=== PATIENT | female | born 1955 | race Hispanic/Latino ===

== ENCOUNTER 2022-10-02 12:14 | Inpatient (IN) | payer OTHER ==
[2022-10-03] MEDS ORDERED: HYDROCODONE/APAP 5/325 MG TAB PO PRN (14:30)
[2022-10-03] MEDS ORDERED: ACETAMINOPHEN 325 MG TABLET PO PRN (14:32)
--- OUTSIDE RECORDS SUMMARY | 2022-10-03 14:56 | XMS REPORT | Continuity of Care Document ---
:1955 Author Organization [facility] [place] [facility] t Address [address] [place] [address] Care Team Providers Name Role Phone Asked, No Pcp Primary Care Physician Unavailable KHADIJAH LOPEZ Attending Clinician Unavailable JESSA ABREU Attending Clinician Unavailable PROSPER LICEA Attending Clinician Unavailable YAN MONREAL Attending Clinician Unavailable SAMIA HAWKINS Attending Clinician Unavailable HILL LOCO Attending Clinician Unavailable MYRNA RENTERIA Attending Clinician Unavailable Myrna Renteria DO Attending Clinician Chyna Paulino DO Attending Clinician Yan Barron Attending Clinician Hill Loco MD Attending Clinician SABRINA MARINO Attending Clinician Unavailable Jessica JAMES, Khadijah Ahuja Attending Clinician Vinayak JAMES, Prosper Attending Clinician Shelley Metzger DO Attending Clinician Po, [facility] Lab Main Attending Clinician Unavailable Doctor Unassigned, [place] Attending Clinician Unavailable Sabrina Zhang S Attending Clinician ANALY FONSECA Attending Clinician Unavailable Neha Donovan PT Attending Clinician Unavailable May Bai LCSW Attending Clinician RUTHIE MARTINEZ Attending Clinician Unavailable MELVIN VARMA Attending Clinician Unavailable Melvin Varma DO Attending Clinician ABHILASH FONSECA Attending Clinician Unavailable Abhilash Fonseca MD Attending Clinician Lab, Ang - Db Attending Clinician Unavailable CHYNA PAULINO Attending Clinician Unavailable CHYNA PAULINO Attending Clinician Unavailable Jessa Abreu MD Attending Clinician Padmaja LUIS Attending Clinician Unavailable TboyPadmaja Main Attending Clinician Alex Wills Attending Clinician Unavailable SEAN MADRID Attending Clinician Unavailable Sean Madrid DO Attending Clinician JOHAN GATES Attending Clinician Unavailable Johan Gates MD Attending Clinician Korey DEJESUS, Akbar Attending Clinician Unavailable Mattie Avila PA-C Attending Clinician MATTIE AVILA Attending Clinician Unavailable Missy Bey PTA Attending Clinician Unavailable Ashkan Whittaker PTA Attending Clinician Unavailable Cheryl West PTA Attending Clinician Unavailable Sandie Barboza PT Attending Clinician Unavailable Berenice Dasilva Attending Clinician BERENICE SANDERSON Attending Clinician Unavailable Visit, [facility] Nurse Attending Clinician Unavailable Mariela Barrientos MDHPeri Attending Clinician MARIELA BARRIENTOSHPeri Attending Clinician Unavailable Shiraz Khoury Attending Clinician Jemal CHARLES, Erinn Attending Clinician ERINN JOAQUIN Attending Clinician Unavailable BAUTISTA ESPITIA Attending Clinician Unavailable Sunil JAMES, Bautista Gaona Attending Clinician [facility] [place], Adc Surgery Faculty Attending Clinician Unavailable Josias Lloyd MD Attending Clinician JOSIAS LLOYD Attending Clinician Unavailable AVRIL ROGER Attending Clinician Unavailable Avril Roger MD Attending Clinician MEHOP_ELIGIBILITY Attending Clinician Unavailable SHANTA BUCK Attending Clinician Unavailable SHANTA BUCK Attending Clinician Unavailable , [facility] Surg Spec Procedure Attending Clinician Unavailable Randolph Verdugo MD Attending Clinician RANDOLPH VERDUGO Attending Clinician Unavailable MAHIN SLAUGHTER Attending Clinician Unavailable MASOUD MAXWELL Attending Clinician Unavailable Jacinda Tai Attending Clinician Masoud Maxwell MD Attending Clinician ZAINAB JOHNSTON Attending Clinician Unavailable Vicente DEJESUS, Mimi Ahuja Attending Clinician Unavailable ALIREZA DICK Attending Clinician Beverly Parminder Arteaga MD Attending Clinician Fozia Jameson MD Attending Clinician Ok Augustin MD Attending Clinician Alireza Dick MD Attending Clinician Ebrahim ARACELI, Demetrius Attending Clinician Vaccine, Ang Db Cbc Fam Attending Clinician Unavailable Judy Crow MD Attending Clinician JUDY CROW Attending Clinician Unavailable Orth[facility] Clinic, Orthopedic Attending Clinician UnavailAnaly Serra Attending Clinician [phone] Mono DEJESUS, Fazal Attending Clinician Unavailable Zainab Bal Attending Clinician Only, [facility] Test Attending Clinician Unavailable Lab, Clc - Attending Clinician Unavailable Mario Patton PA-C Attending Clinician MARIO PATTON Attending Clinician Unavailable Donell Mosher MD Attending Clinician Fahad Zaman MD Attending Clinician Provider, [facility] Urgent Care Attending Clinician Unavailable Ruma Pineda Attending Clinician Lab, Adc Fam Pob I Attending Clinician Unavailable RADIOLOGY Attending Clinician Unavailable Radiology Attending Clinician Unavailable BOBBY JC Attending Clinician Unavailable Santiago Mares DO Attending Clinician Amanda Hunt MD Attending Clinician AMANDA HUNT Attending Clinician Unavailable Nurse, [facility] Women's Health Attending Clinician Unavailable Faculty, Vascular Surg Attending Clinician Unavailable JONATHAN STEVENS Attending Clinician Unavailable Jonathan Stevens MD Attending Clinician SANA TRAN Attending Clinician Unavailable Sana Jenkins S Attending Clinician DEMETRIUS RICHARD Attending Clinician Unavailable Kathrin Jacobs MD Attending Clinician KATHRIN JACOBS Attending Clinician Unavailable Hayde Agustin RN Attending Clinician Unavailable Viji Arevalo RN Attending Clinician Unavailable Love Young Attending Clinician DEEPA HERNANDEZ Attending Clinician Unavailable RESHMA AMADORUWATOSIN A Attending Clinician Unavailable Hossein Junior MD Attending Clinician Rolan Crain CRNA Attending Clinician Isaiah Jaquez MD Attending Clinician KHADIJAH LOPEZ Admitting Clinician Unavailable JESSA ABREU Admitting Clinician Unavailable MYRNA RENTERIA Admitting Clinician Unavailable Myrna Renteria DO Admitting Clinician RUTHIE MARTINEZ Admitting Clinician Unavailable MELVIN VARMA Admitting Clinician Unavailable Alex Wills Admitting Clinician Unavailable UNDEFINED Admitting Clinician Unavailable PROSPER LICEA Admitting Clinician Unavailable Vinayak JAMES, Prosper Admitting Clinician JOHAN GATES Admitting Clinician Unavailable MATTIE AVILA Admitting Clinician Unavailable Padmaja LUIS Admitting Clinician Unavailable MEHOP_ELIGIBILITY Admitting Clinician Unavailable BAUTISTA ESPITIA Admitting Clinician Unavailable Sunil JAMES, Bautista Ganoa Admitting Clinician ALIREZA DICK Admitting Clinician Beverly meenu Dick MD, Alireza Short Admitting Clinician RANDOLPH VERDUGO Admitting Clinician Unavailable Jessa Abreu MD Admitting Clinician Fahad Zaman MD Admitting Clinician TONY STRICKLAND Admitting Clinician Unavailable JONATHAN STEVENS Admitting Clinician Unavailable Monet JAMES, Jonathan Admitting Clinician YAN MONREAL Admitting Clinician Unavailable DEEPA HERNANDEZ Admitting Clinician Unavailable Hossein Junior MD Admitting Clinician Payers Payer Name Policy Type Policy Number Effective Date Expiration Date [facility] MEDICARE PART A [id number] 1991 \\T\\ B 00:00:00 [facility] [id number] 2021 00:00:00 MEDICAID [facility] [id number] 2021 00:00:00 XIANG AVILA [facility] [id number] 2021 2021 HMO 00:00:00 00:00:00 [employer] [id number] 2019 MEDICARE 00:00:00 ADVANTAGE Problems Condition Condition Condition Status Onset Resolution Last Treating Co mments Source Name Details Category Date Date Treatment Clinician Date Acute on Acute on Disease Active Unive rs chronic chronic 2- [place]F 00 Medical (congestiv (congestiv Br anch e heart e heart failure) failure) Presence Presence Disease Active Unive rs of cardiac of cardiac 2-23 it y of [place] 00 Medical therapy therapy Branch pacemaker 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 Added automatic ally from request for surgery [id number] Left heart Left heart Disease Active 2021-08 Overview : Univers failure failure 1 Formattin ity o f 00:00: g of this [place] 00 note Medical might be Branch different from the original. Added automatic ally from request for surgery [id number] Lipoma of Lipoma of Disease Active Uni vers right right 4-04 ity of thigh thigh 00:00: [place] Medical [facility] Chronic Chronic Disease Active Univers heart heart 2-21 ity of failure failure 00:00: [place] with with 00 Medical preserved preserved Bran ch ejection ejection fraction fraction Pacemaker Pacemaker Disease Active Uni vers 2-21 ity of 00:00: Medical Branch Preop Preop Disease Active Univers cardiovasc cardiovasc 2-21 it y of ular exam ular exam 00:00: Kaus[place] bobby 00 Medical Branch Mass of Mass of Disease Active Univers right right 2-21 ity of thigh thigh 00:00: Medical Branch 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-11 ity of block block 00:00: Medical Branch Statin Statin Disease Active Univers intoleranc intoleranc 2-06 it y of e e 00:00: [place] [facility] Elevated Elevated Disease Active Unive rs troponin troponin 6-17 ity of 00:00: Medical Branch Elevated Elevated Disease Active Unive rs troponin troponin 6-17 ity of 00:00: [place] [facility] Troponin I Troponin I Disease Active 2019-08 U nivers above above 2-02 ity of reference reference 00:00: [place] range range 00 Medical [place] Vitamin D Vitamin D Disease Active 2019-08 Uni vers deficiency deficiency 0-24 it y of 00:00: [place] 00 Medical Branch Grief Grief Disease Active 2020- Univers 5-11 ity of 00:00: [place] 00 Medical Branch Pain Pain Disease Active 2020- Overview: Ricki obbby pelvic pelvic 3-18 Formattin ity of 00:00: g of this [place] 00 note Medical might be Branch different from the original. Added automatic ally from request for surgery [id number] Hypomagnes Hypomagnes Disease Active 2020-0 U nivers emia emia 2-26 ity of 00:00: [place] [facility] Blurred Blurred Disease Active 2019 Univers vision vision 1-22 ity of 00:00: [place] 00 Medical Branch Chronic Chronic Disease Active 2019- Univers insomnia insomnia 7-14 ity of 00:00: [place] [facility] Postmenopa Postmenopa Disease Active 2019-0 U nivers usal usal 6-20 ity of atrophic atrophic 00:00: [place] vaginitis vaginitis 00 [facility] Branch Anxiety Anxiety Disease Active 2019- Univers 6-18 ity of 00:00: [place] [facility] Chronic Chronic Disease Active 2019- Univers constipati constipati 5-05 it y of on on 00:00: [place] [facility] Ambulatory Ambulatory Disease Active 2019-0 U nivers dysfunctio dysfunctio 5-05 it y of n n 00:00: [place] 00 Medical Branch Grade I Grade I Disease Active 2019- Univers internal internal 5-05 ity of hemorrhoid hemorrhoid 00:[place] Medical [place] Diverticul Diverticul Disease Active 2019- U nivers osis of osis of 5-05 ity of large large 00:00: [place] intestine intestine 00 [facility] without without Branch hemorrhage hemorrhage Abnormal Abnormal Disease Active 2019- Unive rs skin of skin of 4-17 ity of vulva vulva 00:00: [place] 00 Medical Branch Screening Screening Disease Active 2019 Overview: Univers for for 4-05 Formattin ity of colorectal colorectal 00:00: g of this [place] cancer cancer 00 note Medical might be Branch different from the original. Added automatic ally from request for surgery [id number] Obesity Obesity Disease Active 2019- Univers (BMI (BMI 4-05 ity of 30-39.9) 30-39.9) 00:00: [place] 00 Medical Branch Severe Severe Disease Active 2019 Overview: Univer s persistent persistent 4-03 Formattin ity of asthma asthma 00:00: g of this [place] without without 00 note Medical complicati complicati might be Branch on on different from the original. Added automatic ally from request for surgery [id number] Abnormal Abnormal Disease Active Overview: Un trudy CT scan of CT scan of 11-06 Formattin ity of lung lung 00:00: g of this 00 note Medical might be Branch different from the original. Added automatic ally from request for surgery [id number] Rectocele Rectocele Disease Active Uni vers 4-03 ity of 00:00: [place] 00 [facility] Branch Vaginal Vaginal Disease Active Univers vault vault 4- ity of prolapse, prolapse, 00:00[place] posthyster posthyster 00 Me dical ectomy ectomy Branch Candidal Candidal Disease Active Unive rs vulvovagin vulvovagin 4- it y of itis itis 00:00: [place] 00 [facility] Branch Edema of Edema of Disease Active Unive rs lower lower 4-19 ity of extremity extremity 00:00[place] Pain of Pain of Disease Active Univers left lower left lower 4-19 it y of extremity extremity 00:00[place] [facility] Varicose Varicose Disease Active Unive rs veins of veins of 2-23 ity of lower lower 00:00: [place] extremity extremity 00 [facility] marily Branch Cystocele, Cystocele, Disease Active 2015-08 U nivers midline midline 0-11 ity of 00:00: [place] 00 [facility] Branch Asthma Asthma Disease Active 2013-08 Univers 0-03 ity of 00:00: [place] 00 [facility] Branch Diabetes Diabetes Disease Active 2013-08 Unive rs mellitus mellitus 0-03 ity of 00:00: [place] 00 [facility] Branch Arthritis Arthritis Disease Active Uni vers ity of [facility] Hearing Hearing Disease Active Univers loss loss ity of [facility] Hyperlipid Hyperlipid Disease Active U nivers emia emia ity of [facility] Hypertensi Hypertensi Disease Active U nivers on on ity of [facility] Memory Memory Disease Active Univers loss loss ity of [facility] Poor Poor Disease Active Univers historian historian ity of [facility] GERD GERD Disease Active Univers (gastroeso (gastroeso it y of phageal phageal [place] reflux reflux Medical disease) disease) Branch Allergies, Adverse Reactions, Alerts Allergy Allergy Status Severity Reaction(s) Onset Inactive Treating Comm ents Source Name Type Date Date Clinician aspirin DA Active SV TACHYCARDIA 2021-08 [facility] 1-15 Clear [facility]: [facility] Statins- Propensi Active Other - See myalgias Univers Hmg-Coa ty to comments 2-06 ity of Reductas adverse 00:00: [place] e reaction 00 Medical Inhibito s Branch rs STATINS- Drug Active Other-Cmnt Univ ers HMG-COA Class 2-06 ity of REDUCTAS 00:00: [place] E 00 Medical INHIBITO Branch RS Aspirin Propensi Active Methodi ty to [address] adverse 00:00: [facility] reaction 00 l s to drug ASPIRIN DRUG Active High SOB Univers INGREDI 6-23 ity of 00:00: [place] 00 Medical Branch Aspirin Propensi Active Shortness of U nivers ty to Breath 6-23 ity of adverse 00:00: [place] reaction 00 Medical s Branch aspirin DA Active SV 2014- [facility] 1-13 [place] 00:[facility]: e [facility] aspirin DA Active SV TACHYCARDIA 2014-08 [facility] -13 [place] 00:00: e 00 [facility] Social History Social Habit Start Date Stop Date Quantity Comments Source History of tobacco Passive smoker Un iversity of use [place] [facility] History SDOH Social Unive rsity of [facility] Med ical Together Branch History SDOH Social Unive rsity of [facility] Medical Branch History SDOH Social Unive rsity of [facility] Medical Membership Branch History SDOH Social Unive rsity of [facility] Medical Meetings Branch History SDOH 2022-09-29 2022-09-29 5 University o f Financial 00:00:00 00:00:00 [place] [facility] History SDOH Food 2022-09-29 2022-09-29 1 Univers ity of Worry 00:00:00 00:00:00 [place] [facility] History SDOH Food 2022-09-29 2022-09-29 1 Univers ity of Scarcity 00:00:00 00:00:00 [place] [facility] History SDOH 2022-09-29 2022-09-29 2 University o f Transport Med 00:00:00 00:00:00 [place] Medic al Branch History SDOH 2022-09-29 2022-09-29 2 University o f Transport Non-Med 00:00:00 00:00:00 [facility] edical Branch History SDME 2022-09-29 2022-09-29 1 University o f Alcohol Frequency 00:00:00 00:00:00 [facility] edical Branch History SDME 2022-09-29 2022-09-29 0 University o f Alcohol Std Drinks 00:00:00 00:00:00 [place] [facility] History SDOH 2022-09-29 2022-09-29 1 University o f Alcohol Binge 00:00:00 00:00:00 [place] [facility] Branch History SDME Social 2022-09-29 2022-09-29 5 Unive rsity of Connections Phone 00:00:00 00:00:00 [facility] edical Branch History SDME Social 2022-09-29 2022-09-29 6 Unive rsity of Connections Living 00:00:00 00:00:00 [place] [facility] History SDME 2022-09-29 2022-09-29 3 University o f Physical Activity 00:00:00 00:00:00 [facility] edical DPW Branch History [facility] 2022-09-29 2022-09-29 1 University o f Physical Activity 00:00:00 [facility]00 [facility] Exposure to 2022-09-17 2022-09-27 Not sure University of SARS-CoV-2 (event) 00:00:00 13:55:00 [facility] Tobacco use and 2022-02-23 2022-02-23 Smokeless Universit y of exposure 00:00:00 00:00:00 tobacco non-user [facility] dical Branch Alcohol intake 2016-10-04 2016-10-04 Current Judaism 00:00:00 00:00:00 non-drinker of Hospital alcohol (finding) Sex [birth year] Judaism 00:00:00 00:00:00 Hospital Smoking Status Start Date Stop Date Source Never smoked tobacco [facility] Medications Ordered Filled Start Stop Current Ordering Indication Dosage Frequency Signature Comments Components Source Medication Medication Date Date Medication? Clinician (SIG) Name Name Sliding Yes Subcutaneo Univ ers Scale 2-28 us, TID ity of Insulin - 14:00: MEALS, [place] Lispro 00 First dose Medical (HumaLOG) + (after Branch Fsbg last Testing modificati on) on Sun10/03/22 at 0800, Until Discontinu ed, Routine tiotropium 0 Yes Spiriva Univ ers (SPIRIVA 10-03 with ity of WITH 13:17: HandiHaler [place] HANDIHALER) 23 18 mcg and Me dical 18 mcg inhalation Branch inhalation capsules hydrOXYzine Yes as needed. Univers 50 mg 10-03 ity of tablet 13:17: [place] 23 Medical Branch pantoprazol Yes 40mg Take 40 mg Univers e sodium 10-03 by mouth. ity of (PROTONIX 13:17: [place] ORAL) 23 Medical Branch EPINEPHrine 0 2022- No epinephrin Univers 0.3 mg/0.3 10-03 e 0.3 ity of mL 11:25: 00:00 mg/0.3 mL [place] injection 40 :00 injection, [facility] marily auto-injec Branch tor POTASSIUM-9 2022- No 1{tbl} Take 1 U nivers 9 ORAL 10-03 tablet by ity of 11:25: 00:00 mouth [place] 40 :00 daily. Medical Branch tiotropium Yes Spiriva Univ ers (SPIRIVA 10-03 with ity of WITH 11:25: HandiHaler [place] HANDIHALER) 38 18 mcg and Me dical 18 mcg inhalation Branch inhalation capsules hydrOXYzine 0 Yes as needed. Univers 50 mg -28 ity of tablet 11:25: [place] 38 Medical Branch pantoprazol 0 Yes 40mg Take 40 mg Univers e sodium - by mouth. ity of (PROTONIX 11:25: [place] ORAL) 38 Medical Branch ipratropium 0 Yes .5mg Inhale 2.5 Univers 0.02 % - mL 4 ity of nebulizer 00:00: (four) [place] solution 00 times Medical daily. Branch HYDROcodone Yes 1{tbl} Take 1 Un trudy -acetaminop -28 tablet by ity of hen 5-325 00:00: mouth [place] mg tablet 00 every 6 Medical (six) Branch hours as needed for Pain (scale 4-6). glipiZIDE 5 2022-0 Yes 5mg Take 1 Univ ers mg tablet 2-28 tablet by ity o f 00:00: mouth 2 00 (two) Medical times Branch daily before breakfast and dinner. furosemide 2022-0 Yes 40mg Take 1 Unive rs 40 mg 2-28 tablet by ity of tablet 00:00: mouth 00 every Medical morning Branch and evening. predniSONE 2022-0 Yes 50mg Take 1 Unive rs 50 mg 2-28 tablet by ity of tablet 00:00: mouth [place] 00 every Medical evening. Branch magnesium 2022-0 Yes 400mg Take 400 Uni vers oxide 420 2-28 mg by ity of mg Tab 00:00: mouth in [place] 00 the Medical morning Branch and 400 mg in the evening. KCL 20 mEq 2022-0 Yes 40meq Take 2 Univ ers tablet 2-28 tablets by ity of 00:00: mouth in [place] 00 the Medical morning. Branch atorvastati 0 Yes 20mg 20 mg, Univ ers n (LIPITOR) 2-25 Oral, QHS, it y of tablet 20 03:00: [place] dose [place] mg 00 on Sun Medical 09/29/22 at Branch 2100, Until Discontinu ed, Routine pantoprazol 2022-0 Yes 40mg Take 40 mg Univers e sodium 2-24 by mouth. ity of (PROTONIX 20:19: [place] ORAL) 06 Medical Branch Sliding 2022-0 2023- No Subcutaneo Uni vers Scale 2-24 02-28 us, TID ity of Insulin - 14:00: 13:50 MEALS, [place] Lispro 00 :58 First dose Medical (HumaLOG) + on Sun Branch Fsbg 09/29/22 at Testing 0800, Until Discontinu ed, Routine glipiZIDE 2022-0 Yes 5mg 5 mg, Univers (GLUCOTROL) 2-24 Oral, ity of tablet 5 mg 13:30: BIDAC, [place] 00 First dose Medical (after Branch last modificati on) on 09/29/22 at 0730, Until Discontinu ed, Routine furosemide 2022-0 Yes 40mg 40 mg, Unive rs (LASIX) 2-24 Slow IV ity of injection 12:00: [place], Q8H, [place] 40 mg 00 First dose Medical (after Branch last modificati on) on Sun09/29/22 at 0600, Until Discontinu ed, Routine iopamidol 2023-0 2022- No [id number] 100mL 100 mL, Univers (ISOVUE 09-29 Intravenou ity o f 370-500 mL) 08:15: 08:15 s, ONCE, 1 [place] injection 00 :00 dose, On Medica l 100 mL [facility] 09/29/22 at 0215, Routine magnesium 2022-0 2022- No 2g 2 g, IV Univ ers sulfate in 09-29 Piggyback, it y of water 2 05:45: 06:48 Administer Sal as gram/50 mL 00 :00 over 60 Medica l (4 %) Minutes, [place] infusion 2 ONCE, 1 g dose, On Alyce 09/28/22 at 2345, Routine predniSONE 2023-0 Yes 50mg 50 mg, Unive rs (DELTASONE) 2-24 Oral, QPM, it y of tablet 50 05:00: [place] dose [place] mg 00 on [facility] 09/28/22 at Branch 2300, Until Discontinu ed, Routine budesonide 3-0 Yes .5mg 0.5 mg, Univ ers (PULMICORT 09-29 Inhalation ity of RESPULE) 05:00: , BID, [place] nebulizer 00 First dose Medi marily solution on [facility] 0.5 mg 09/28/22 at 2300, Until Discontinu ed, Routine gabapentin 2023-0 Yes 300mg 300 mg, Uni vers (NEURONTIN) 24 Oral, TID, it y of capsule 300 05:00: First dose [place] mg 00 on [facility] 09/28/22 at Branch 2300, Until Discontinu ed, Routine magnesium 2023-0 Yes 400mg 400 mg, Univ ers oxide 2-24 Oral, BID, ity of (MAG-OX 05:00: [place] 400) tablet 00 on [facility] Medica l 400 mg 09/28/22 at Branch 2300, Until Discontinu ed, Routine KCL 2023-0 Yes 40meq 40 mEq, Univers (KLOR-CON - Oral, ity of M20) tablet 02:00: DAILY, [place] 40 mEq 00 First dose Medical on [facility] 09/28/22 at 1999, Until Discontinu ed, Routine albuterol Yes 2.5mg 2.5 mg, Univ ers (PROVENTIL) 09-29 Inhalation it y of 2.5 mg /3 02:00: , QID, [place] mL (0.083 00 First dose Medi marily %) on [facility] Branch nebulizer 09/28/22 at solution 2000, 2.5 mg Until Discontinu ed, Routine ipratropium Yes .5mg 0.5 mg, Uni vers (ATROVENT) 09-29 Inhalation ity of 0.02 % 02:00: , QID, [place] nebulizer 00 First dose Medi marily solution on [facility] Branch 0.5 mg 09/28/22 at 1999, Until Discontinu ed, Routine furosemide 2022- No 40mg 40 mg, [facility] ers (LASIX) 09-29 Slow IV ity of injection 02:00: 04:57 Push, [place] 40 mg 00 :12 Q12H, Medical First dose Branch on [facility] 09/28/22 at 1999, Until Discontinu ed, Routine HYDROcodone Yes 1{tbl} 1 tablet, Univers -acetaminop 09-28 Oral, ity of hen (NORCO 23:54: Q6HPRN, [place] 5) 5-325 mg 06 Starting Medi marily tablet 1 on [facility] tablet 09/28/22 at 1754, Until Discontinu ed, Routine, Pain (scale 4-6) enoxaparin Yes 40mg 40 mg, Unive rs (LOVENOX) 09-28 Subcutaneo ity of injection 23:00: [place], DAILY, [place] 40 mg 00 First dose Medical on [facility] Branch 09/28/22 at 1700, Until Discontinu ed, Routine Sliding 0 2022- No Subcutaneo Uni vers Scale 09-2824 us, TID ity of Insulin - 23:00: 04:54 MEALS+HS, [place] Lispro 00 :12 First dose Medical (HumaLOG) + on [facility] Branch Fsbg 09/28/22 at Testing 1700, Until Discontinu ed, Routine glucagon Yes 1mg 1 mg, Univers (GLUCAGEN 09-28 Intramuscu ity of DIAGNOSTIC 20:31: [place], PRN, [place] KIT) 25 Starting Medical injection 1 on [facility] Branch mg 09/28/22 at 1431, Until Discontinu ed, MIKE, Blood Glucose < or = 70 mg/dL and patient is NPO, unable to swallow or has mental changes. dextrose 50 0 Yes 25mL 25 mL, Univ ers % in water 2-23 Slow IV ity of (D50W) 20:31: Push, PRN, [place] injection 25 Starting Medica l 25 mL on [facility] Branch 09/28/22 at 1431, Until Discontinu ed, MIKE, Blood Glucose < or = 70 mg/dL and patient is NPO, unable to swallow or has mental status changes. acetaminoph Yes 650mg 650 mg, Un trudy en 2-23 Oral, ity of (TYLENOL) 20:30: Q6HPRN, [place] tablet 650 02 Starting Medic al mg on [facility] Branch 09/28/22 at 1430, Until Discontinu ed, Routine, Pain (scale 1-3) tiotropium Yes [facility] (SPIRIVA 23 with ity of WITH 14:23: [facility] [place] HANDIHALER) 02 18 mcg and Me dical 18 mcg inhalation Branch inhalation capsules hydrOXYzine Yes as needed. Univers 50 mg 2-23 ity of tablet 14:23: [place] 02 Medical Branch EPINEPHrine Yes epinephrin Univers 0.3 mg/0.3 -23 e 0.3 ity of mL 14:23: mg/0.3 mL [place] injection 02 injection, Medi marily auto-injec Branch tor POTASSIUM-9 Yes 1{tbl} Take 1 Un trudy 9 ORAL -23 tablet by ity of 14:23: mouth [place] 02 daily. Medical Branch tiotropium Yes [facility] (SPIRIVA -23 with ity of WITH 14:23: [facility] [place] HANDIHALER) 02 18 mcg and Me dical 18 mcg inhalation Branch inhalation capsules hydrOXYzine Yes as needed. Univers 50 mg 2-23 ity of tablet 14:23: [place] 02 Medical Branch EPINEPHrine Yes epinephrin Univers 0.3 mg/0.3 2-23 e 0.3 ity of mL 14:23: mg/0.3 mL [place] injection 02 injection, Medi marily auto-injec Branch tor POTASSIUM-9 Yes 1{tbl} Take 1 Un trudy 9 ORAL 2-23 tablet by ity of 14:23: mouth [place] 02 daily. Medical Branch tiotropium Yes [facility] (SPIRIVA 2-23 with ity of WITH 10:20: [facility] [place] HANDIHALER) 38 18 mcg and Me dical 18 mcg inhalation Branch inhalation capsules hydrOXYzine Yes as needed. Univers 50 mg 2-23 ity of tablet 10:20: [place] 38 Medical Branch POTASSIUM-9 Yes 1{tbl} Take 1 Un trudy 9 ORAL 2-23 tablet by ity of 10:20: mouth [place] 38 daily. Medical Branch tiotropium Yes [facility] (SPIRIVA 2-23 with ity of WITH 10:20: [facility] [place] HANDIHALER) 38 18 mcg and Me dical 18 mcg inhalation Branch inhalation capsules hydrOXYzine Yes as needed. Univers 50 mg 2-23 ity of tablet 10:20: [place] 38 Medical Branch POTASSIUM-9 Yes 1{tbl} Take 1 Un trudy 9 ORAL 2-23 tablet by ity of 10:20: mouth [place] 38 daily. Medical Branch tiotropium Yes [facility] (SPIRIVA 2-23 with ity of WITH 10:20: [facility] [place] HANDIHALER) 38 18 mcg and Me dical 18 mcg inhalation Branch inhalation capsules hydrOXYzine Yes as needed. Univers 50 mg 2-23 ity of tablet 10:20: [place] 38 Medical Branch POTASSIUM-9 Yes 1{tbl} Take 1 Un trudy 9 ORAL 2-23 tablet by ity of 10:20: mouth [place] 38 daily. Medical Branch tiotropium Yes [facility] (SPIRIVA 2-23 with ity of WITH 10:20: [facility] [place] HANDIHALER) 38 18 mcg and Me dical 18 mcg inhalation Branch inhalation capsules hydrOXYzine Yes as needed. Univers 50 mg 2-23 ity of tablet 10:20: [place] 38 Medical Branch POTASSIUM-9 Yes 1{tbl} Take 1 Un trudy 9 ORAL 2-23 tablet by ity of 10:20: mouth [place] [id number] daily. Medical Branch tiotropium Yes [facility] (SPIRIVA 2-23 with ity of WITH 10:20: [facility] [place] HANDIHALER) 38 18 mcg and Me dical 18 mcg inhalation Branch inhalation capsules hydrOXYzine Yes as needed. Univers 50 mg 2-23 ity of tablet 10:20: [place] 38 Medical Branch POTASSIUM-9 Yes 1{tbl} Take 1 Un truyd 9 ORAL 2-23 tablet by ity of 10:20: mouth [place] [address] daily. Medical Branch diclofenac 2022- Yes [id number] 75mg Take 1 Univers 75 mg EC 2-24 10- 9100 tablet by ity o f tablet 00:00: 04:59 mouth in [place] 00 :00 the [facility] and 1 tablet in the evening. Take with meals. Do all this for 30 days. diclofenac 2022- Yes [id number] 75mg Take 1 Univers 75 mg EC 2-24 10- 9100 tablet by ity o f tablet 00:00: 04:59 mouth in [place] 00 :00 the [facility] and 1 tablet in the evening. Take with meals. Do all this for 30 days. diclofenac 2022- Yes [id number] 75mg Take 1 Univers 75 mg EC 2-24 10- 9100 tablet by ity o f tablet 00:00: 04:59 mouth in [place] 00 :00 the [facility] and 1 tablet in the evening. Take with meals. Do all this for 30 days. diclofenac 2022- Yes [id number] 75mg Take 1 Univers 75 mg EC 2-24 10- 9100 tablet by ity o f tablet 00:00: 04:59 mouth in [place] 00 :00 the [facility] and 1 tablet in the evening. Take with meals. Do all this for 30 days. diclofenac 2022- Yes [id number] 75mg Take 1 Univers 75 mg EC 2-24 10- 9100 tablet by ity o f tablet 00:00: 04:59 mouth in [place] 00 :00 the Medical morning Branch and 1 tablet in the evening. Take with meals. Do all this for 30 days. diclofenac 2022-0 2022- Yes [id number] 75mg Take 1 Univers 75 mg EC 2-10-27 9100 tablet by ity o f tablet 00:00: 04:59 mouth in [place] 00 :00 the Medical morning Branch and 1 tablet in the evening. Take with meals. Do all this for 30 days. diclofenac 2022-0 2022- Yes [id number] 75mg Take 1 Univers 75 mg EC 2-10-27 9100 tablet by ity o f tablet 00:00: 04:59 mouth in [place] 00 :00 the Medical morning Branch and 1 tablet in the evening. Take with meals. Do all this for 30 days. diclofenac 2022-0 2022- Yes [id number] 75mg Take 1 Univers 75 mg EC 2-10-27 9100 tablet by ity o f tablet 00:00: 04:59 mouth in [place] 00 :00 the Medical morning Branch and 1 tablet in the evening. Take with meals. Do all this for 30 days. diclofenac 0 2022- Yes [id number] 75mg Take 1 Univers 75 mg EC 2-10-27 9100 tablet by ity o f tablet 00:00: 04:59 mouth in [place] 00 :00 the Medical morning Branch and 1 tablet in the evening. Take with meals. Do all this for 30 days. diclofenac 2022- No [id number] 75mg Take 1 Univers 75 mg EC 210-03 9100 tablet by ity o f tablet 00:00: 00:00 mouth in [place] 00 :00 the Medical morning Branch and 1 tablet in the evening. Take with meals. Do all this for 30 days. ALBUTEROL 0 Yes 2{puff} Inhale 2 U nivers 90 2-14 Puffs ity of mcg/actuati 00:00: every 6 [place] on inhaler 00 (six) Medical hours as Branch needed for Wheezing or Shortness of Breath. ALBUTEROL 0 Yes 2{puff} Inhale 2 U nivers 90 2-14 Puffs ity of mcg/actuati 00:00: every 6 [place] on inhaler 00 (six) Medical hours as Branch needed for Wheezing or Shortness of Breath. ALBUTEROL Yes 2{puff} Inhale 2 U nivers 90 2-14 Puffs ity of mcg/actuati 00:00: every 6 [place] on inhaler 00 (six) Medical hours as Branch needed for Wheezing or Shortness of Breath. ALBUTEROL Yes 2{puff} Inhale 2 U nivers 90 2-14 Puffs ity of mcg/actuati 00:00: every 6 [place] on inhaler 00 (six) Medical hours as Branch needed for Wheezing or Shortness of Breath. ALBUTEROL Yes 2{puff} Inhale 2 U nivers 90 2-14 Puffs ity of mcg/actuati 00:00: every 6 [place] on inhaler 00 (six) Medical hours as Branch needed for Wheezing or Shortness of Breath. ALBUTEROL Yes 2{puff} Inhale 2 U nivers 90 2-14 Puffs ity of mcg/actuati 00:00: every 6 [place] on inhaler 00 (six) Medical hours as Branch needed for Wheezing or Shortness of Breath. ALBUTEROL Yes 2{puff} Inhale 2 U nivers 90 2-14 Puffs ity of mcg/actuati 00:00: every 6 [place] on inhaler 00 (six) Medical hours as Branch needed for Wheezing or Shortness of Breath. ALBUTEROL Yes 2{puff} Inhale 2 U nivers 90 2-14 Puffs ity of mcg/actuati 00:00: every 6 [place] on inhaler 00 (six) Medical hours as Branch needed for Wheezing or Shortness of Breath. ALBUTEROL Yes 2{puff} Inhale 2 U nivers 90 2-14 Puffs ity of mcg/actuati 00:00: every 6 [place] on inhaler 00 (six) Medical hours as Branch needed for Wheezing or Shortness of Breath. ALBUTEROL Yes 2{puff} Inhale 2 U nivers 90 2-14 Puffs ity of mcg/actuati 00:00: every 6 [place] on inhaler 00 (six) Medical hours as Branch needed for Wheezing or Shortness of Breath. ALBUTEROL Yes 2{puff} Inhale 2 U nivers 90 2-14 Puffs ity of mcg/actuati 00:00: every 6 [place] on inhaler 00 (six) Medical hours as Branch needed for Wheezing or Shortness of Breath. ALBUTEROL Yes 2{puff} Inhale 2 U nivers 90 2-14 Puffs ity of mcg/actuati 00:00: every 6 [place] on inhaler 00 (six) Medical hours as Branch needed for Wheezing or Shortness of Breath. ALBUTEROL Yes 2{puff} Inhale 2 U nivers 90 2-14 Puffs ity of mcg/actuati 00:00: every 6 [place] on inhaler 00 (six) Medical hours as Branch needed for Wheezing or Shortness of Breath. ALBUTEROL Yes 2{puff} Inhale 2 U nivers 90 2-14 Puffs ity of mcg/actuati 00:00: every 6 [place] on inhaler 00 (six) Medical hours as Branch needed for Wheezing or Shortness of Breath. ALBUTEROL Yes 2{puff} Inhale 2 U nivers 90 2-14 Puffs ity of mcg/actuati 00:00: every 6 [place] on inhaler 00 (six) Medical hours as Branch needed for Wheezing or Shortness of Breath. ALBUTEROL Yes 2{puff} Inhale 2 U nivers 90 2-14 Puffs ity of mcg/actuati 00:00: every 6 [place] on inhaler 00 (six) Medical hours as Branch needed for Wheezing or Shortness of Breath. ALBUTEROL Yes 2{puff} Inhale 2 U nivers 90 2-14 Puffs ity of mcg/actuati 00:00: every 6 [place] on inhaler 00 (six) Medical hours as Branch needed for Wheezing or Shortness of Breath. ALBUTEROL 2022- No 2{puff} Inhale 2 Univers 90 2-14 02-28 Puffs ity of mcg/actuati 00:00: 00:00 every 6 [place] on inhaler 00 :00 (six) Medical hours as Branch needed for Wheezing or Shortness of Breath. ALBUTEROL Yes [id number] INHALE 2 Univers 90 2-06 PUFFS BY ity of mcg/actuati 00:00: MOUTH [place] on inhaler 00 EVERY 6 Medica l HOURS Branch NEEDED FOR WHEEZING FOR SHORTNESS OF BREATH ALBUTEROL Yes [id number] INHALE 2 Univers 90 2-06 PUFFS BY ity of mcg/actuati 00:00: MOUTH [place] on inhaler 00 EVERY 6 Medica l HOURS Branch NEEDED FOR WHEEZING FOR SHORTNESS OF BREATH ALBUTEROL 0 Yes [id number] INHALE 2 Univers 90 2-06 PUFFS BY ity of mcg/actuati 00:00: MOUTH [place] on inhaler 00 EVERY 6 Medica l HOURS Branch NEEDED FOR WHEEZING FOR SHORTNESS OF BREATH ALBUTEROL Yes [id number] INHALE 2 Univers 90 2-06 PUFFS BY ity of mcg/actuati 00:00: MOUTH [place] on inhaler 00 EVERY 6 Medica l HOURS Branch NEEDED FOR WHEEZING FOR SHORTNESS OF BREATH ALBUTEROL Yes [id number] INHALE 2 Univers 90 2-06 PUFFS BY ity of mcg/actuati 00:00: MOUTH [place] on inhaler 00 EVERY 6 Medica l HOURS Branch NEEDED FOR WHEEZING FOR SHORTNESS OF BREATH ALBUTEROL Yes [id number] INHALE 2 Univers 90 2-06 PUFFS BY ity of mcg/actuati 00:00: MOUTH [place] on inhaler 00 EVERY 6 Medica l HOURS Branch NEEDED FOR WHEEZING FOR SHORTNESS OF BREATH ALBUTEROL Yes [id number] INHALE 2 Univers 90 2-06 PUFFS BY ity of mcg/actuati 00:00: MOUTH [place] on inhaler 00 EVERY 6 Medica l HOURS Branch NEEDED FOR WHEEZING FOR SHORTNESS OF BREATH ALBUTEROL 0 Yes [id number] INHALE 2 Univers 90 2-06 PUFFS BY ity of mcg/actuati 00:00: MOUTH [place] on inhaler 00 EVERY 6 Medica l HOURS Branch NEEDED FOR WHEEZING FOR SHORTNESS OF BREATH ALBUTEROL 0 Yes [id number] INHALE 2 Univers 90 2-06 PUFFS BY ity of mcg/actuati 00:00: MOUTH [place] on inhaler 00 EVERY 6 Medica l HOURS Branch NEEDED FOR WHEEZING FOR SHORTNESS OF BREATH ALBUTEROL 0 Yes [id number] INHALE 2 Univers 90 2-06 PUFFS BY ity of mcg/actuati 00:00: MOUTH [place] on inhaler 00 EVERY 6 Medica l HOURS Branch NEEDED FOR WHEEZING FOR SHORTNESS OF BREATH ALBUTEROL Yes [id number] INHALE 2 Univers 90 2-06 PUFFS BY ity of mcg/actuati 00:00: MOUTH [place] on inhaler 00 EVERY 6 Medica l HOURS Branch NEEDED FOR WHEEZING FOR SHORTNESS OF BREATH ALBUTEROL 0 Yes [id number] INHALE 2 Univers 90 2-06 PUFFS BY ity of mcg/actuati 00:00: MOUTH [place] on inhaler 00 EVERY 6 Medica l HOURS Branch NEEDED FOR WHEEZING FOR SHORTNESS OF BREATH ALBUTEROL Yes [id number] INHALE 2 Univers 90 2-06 PUFFS BY ity of mcg/actuati 00:00: MOUTH [place] on inhaler 00 EVERY 6 Medica l HOURS Branch NEEDED FOR WHEEZING FOR SHORTNESS OF BREATH ALBUTEROL 0 Yes [id number] INHALE 2 Univers 90 2-06 PUFFS BY ity of mcg/actuati 00:00: MOUTH [place] on inhaler 00 EVERY 6 Medica l HOURS Branch NEEDED FOR WHEEZING FOR SHORTNESS OF BREATH ALBUTEROL Yes [id number] INHALE 2 Univers 90 2-06 PUFFS BY ity of mcg/actuati 00:00: MOUTH [place] on inhaler 00 EVERY 6 Medica l HOURS Branch NEEDED FOR WHEEZING FOR SHORTNESS OF BREATH ALBUTEROL Yes [id number] INHALE 2 Univers 90 2-06 PUFFS BY ity of mcg/actuati 00:00: MOUTH [place] on inhaler 00 EVERY 6 Medica l HOURS Branch NEEDED FOR WHEEZING FOR SHORTNESS OF BREATH ALBUTEROL 0 Yes [id number] INHALE 2 Univers 90 2-06 PUFFS BY ity of mcg/actuati 00:00: MOUTH [place] on inhaler 00 EVERY 6 Medica l HOURS Branch NEEDED FOR WHEEZING FOR SHORTNESS OF BREATH ALBUTEROL 0 Yes [id number] INHALE 2 Univers 90 2-06 PUFFS BY ity of mcg/actuati 00:00: MOUTH [place] on inhaler 00 EVERY 6 Medica l HOURS Branch NEEDED FOR WHEEZING FOR SHORTNESS OF BREATH ALBUTEROL 0 Yes [id number] INHALE 2 Univers 90 2-06 PUFFS BY ity of mcg/actuati 00:00: MOUTH [place] on inhaler 00 EVERY 6 Medica l HOURS Branch NEEDED FOR WHEEZING FOR SHORTNESS OF BREATH ALBUTEROL 0 Yes [id number] INHALE 2 Univers 90 2-06 PUFFS BY ity of mcg/actuati 00:00: MOUTH [place] on inhaler 00 EVERY 6 Medica l HOURS Branch NEEDED FOR WHEEZING FOR SHORTNESS OF BREATH ALBUTEROL 0 Yes [id number] INHALE 2 Univers 90 2-06 PUFFS BY ity of mcg/actuati 00:00: MOUTH [place] on inhaler 00 EVERY 6 Medica l HOURS Branch NEEDED FOR WHEEZING FOR SHORTNESS OF BREATH ALBUTEROL 0 Yes [id number] INHALE 2 Univers 90 2-06 PUFFS BY ity of mcg/actuati 00:00: MOUTH [place] on inhaler 00 EVERY 6 Medica l HOURS Branch NEEDED FOR WHEEZING FOR SHORTNESS OF BREATH ALBUTEROL 0 Yes [id number] INHALE 2 Univers 90 2-06 PUFFS BY ity of mcg/actuati 00:00: MOUTH [place] on inhaler 00 EVERY 6 Medica l HOURS Branch NEEDED FOR WHEEZING FOR SHORTNESS OF BREATH ALBUTEROL Yes [id number] INHALE 2 Univers 90 2-06 PUFFS BY ity of mcg/actuati 00:00: MOUTH [place] on inhaler 00 EVERY 6 Medica l HOURS Branch NEEDED FOR WHEEZING FOR SHORTNESS OF BREATH ALBUTEROL 0 2022- No [id number] INHALE 2 Univers 90 2-06 02-28 PUFFS BY ity of mcg/actuati 00:00: 00:00 MOUTH [place] on inhaler 00 :00 EVERY 6 Medica l HOURS Branch NEEDED FOR WHEEZING FOR SHORTNESS OF BREATH tiotropium Yes [facility] (SPIRIVA 2-01 with ity of WITH 14:31: Hand[facility] [place] HANDIHALER) 47 18 mcg and Me dical 18 mcg inhalation Branch inhalation capsules hydrOXYzine 0 Yes as needed. Univers 50 mg 2-01 ity of tablet 14:31: [place] 47 Medical Branch EPINEPHrine Yes epinephrin Univers 0.3 mg/0.3 2-01 e 0.3 ity of mL 14:31: mg/0.3 mL [place] injection 47 injection, [facility] auto-injec Branch tor POTASSIUM-9 Yes 1{tbl} Take 1 Un trudy 9 ORAL 2-01 tablet by ity of 14:31: mouth [place] 47 daily. Medical Branch tiotropium Yes [facility] (SPIRIVA 2 with ity of WITH 14:31: [facility] [place] HANDIHALER) 47 18 mcg and Me dical 18 mcg inhalation Branch inhalation capsules hydrOXYzine Yes as needed. Univers 50 mg 2-01 ity of tablet 14:31: [place] 47 Medical Branch EPINEPHrine Yes epinephrin Univers 0.3 mg/0.3 2-01 e 0.3 ity of mL 14:31: mg/0.3 mL [place] injection 47 injection, [facility] auto-injec Branch tor POTASSIUM-9 Yes 1{tbl} Take 1 Un trudy 9 ORAL 2-01 tablet by ity of 14:31: mouth [place] 47 daily. Medical Branch tiotropium Yes [facility] (SPIRIVA 09-06 with ity of WITH 14:31: [facility] [place] HANDIHALER) 47 18 mcg and Me dical 18 mcg inhalation Branch inhalation capsules hydrOXYzine Yes as needed. Univers 50 mg 2-01 ity of tablet 14:31: [place] 47 Medical Branch EPINEPHrine Yes epinephrin Univers 0.3 mg/0.3 2-01 e 0.3 ity of mL 14:31: mg/0.3 mL [place] injection 47 injection, [facility] auto-injec Branch tor POTASSIUM-9 Yes 1{tbl} Take 1 Un trudy 9 ORAL 2-01 tablet by ity of 14:31: mouth [place] 47 daily. Medical Branch tiotropium Yes [facility] (SPIRIVA 2 with ity of WITH 14:31: [facility] [place] HANDIHALER) 47 18 mcg and Me dical 18 mcg inhalation Branch inhalation capsules hydrOXYzine Yes as needed. Univers 50 mg 2-01 ity of tablet 14:31: [place] 47 Medical Branch EPINEPHrine Yes epinephrin Univers 0.3 mg/0.3 2-01 e 0.3 ity of mL 14:31: mg/0.3 mL [place] injection 47 injection, [facility] marily auto-injec Branch tor POTASSIUM-9 Yes 1{tbl} Take 1 Un trudy 9 ORAL 2-01 tablet by ity of 14:31: mouth [place] 47 daily. Medical Branch tiotropium Yes [facility] (SPIRIVA 09-06 with ity of WITH 14:31: [facility] [place] HANDIHALER) 47 18 mcg and Me dical 18 mcg inhalation Branch inhalation capsules hydrOXYzine Yes as needed. Univers 50 mg 2-01 ity of tablet 14:31: [place] 47 Medical Branch EPINEPHrine Yes epinephrin Univers 0.3 mg/0.3 2-01 e 0.3 ity of mL 14:31: mg/0.3 mL [place] injection 47 injection, [facility] auto-injec Branch tor POTASSIUM-9 Yes 1{tbl} Take 1 Un trudy 9 ORAL 2-01 tablet by ity of 14:31: mouth [place] 47 daily. Medical Branch tiotropium Yes [facility] (SPIRIVA 09-06 with ity of WITH 14:31: [facility] [place] HANDIHALER) 47 18 mcg and Me dical 18 mcg inhalation Branch inhalation capsules hydrOXYzine Yes as needed. Univers 50 mg 2-01 ity of tablet 14:31: [place] 47 Medical Branch EPINEPHrine Yes epinephrin Univers 0.3 mg/0.3 2-01 e 0.3 ity of mL 14:31: mg/0.3 mL [place] injection 47 injection, [facility] auto-injec Branch tor POTASSIUM-9 Yes 1{tbl} Take 1 Un trudy 9 ORAL 2-01 tablet by ity of 14:31: mouth [place] 47 daily. Medical Branch tiotropium Yes [facility] (SPIRIVA 09-06 with ity of WITH 14:31: [facility] [place] HANDIHALER) 47 18 mcg and Me dical 18 mcg inhalation Branch inhalation capsules hydrOXYzine Yes as needed. Univers 50 mg 2-01 ity of tablet 14:31: [place] 47 Medical Branch EPINEPHrine Yes epinephrin Univers 0.3 mg/0.3 2-01 e 0.3 ity of mL 14:31: mg/0.3 mL [place] injection 47 injection, [facility] auto-injec Branch tor POTASSIUM-9 Yes 1{tbl} Take 1 Un trudy 9 ORAL 2-01 tablet by ity of 14:31: mouth [place] 47 daily. Medical Branch tiotropium Yes [facility] (SPIRIVA 2 with ity of WITH 14:31: [facility] [place] HANDIHALER) 47 18 mcg and Me dical 18 mcg inhalation Branch inhalation capsules hydrOXYzine Yes as needed. Univers 50 mg 2-01 ity of tablet 14:31: [place] 47 Medical Branch EPINEPHrine Yes epinephrin Univers 0.3 mg/0.3 2-01 e 0.3 ity of mL 14:31: mg/0.3 mL [place] injection 47 injection, [facility] auto-injec Branch tor POTASSIUM-9 Yes 1{tbl} Take 1 Un trudy 9 ORAL 2-01 tablet by ity of 14:31: mouth [place] 47 daily. Medical Branch tiotropium Yes [facility] (SPIRIVA 2 with ity of WITH 14:31: [facility] [place] HANDIHALER) 47 18 mcg and Me dical 18 mcg inhalation Branch inhalation capsules hydrOXYzine Yes as needed. Univers 50 mg 2-01 ity of tablet 14:31: [place] 47 Medical Branch EPINEPHrine Yes epinephrin Univers 0.3 mg/0.3 2-01 e 0.3 ity of mL 14:31: mg/0.3 mL [place] injection 47 injection, [facility] auto-injec Branch tor POTASSIUM-9 Yes 1{tbl} Take 1 Un trudy 9 ORAL 2-01 tablet by ity of 14:31: mouth [place] 47 daily. Medical Branch tiotropium Yes [facility] (SPIRIVA 2-01 with ity of WITH 14:31: [facility] [place] HANDIHALER) 47 18 mcg and Me dical 18 mcg inhalation Branch inhalation capsules hydrOXYzine Yes as needed. Univers 50 mg 2-01 ity of tablet 14:31: [place] 47 Medical Branch EPINEPHrine Yes epinephrin Univers 0.3 mg/0.3 2-01 e 0.3 ity of mL 14:31: mg/0.3 mL [place] injection 47 injection, [facility] auto-injec Branch tor POTASSIUM-9 Yes 1{tbl} Take 1 Un trudy 9 ORAL 2-01 tablet by ity of 14:31: mouth [place] 47 daily. Medical Branch tiotropium Yes [facility] (SPIRIVA 2 with ity of WITH 14:31: [facility] [place] HANDIHALER) 47 18 mcg and Me dical 18 mcg inhalation Branch inhalation capsules hydrOXYzine Yes as needed. Univers 50 mg 2-01 ity of tablet 14:31: [place] 47 Medical Branch EPINEPHrine Yes epinephrin Univers 0.3 mg/0.3 2-01 e 0.3 ity of mL 14:31: mg/0.3 mL [place] injection 47 injection, [facility] auto-injec Branch tor POTASSIUM-9 Yes 1{tbl} Take 1 Un trudy 9 ORAL 2-01 tablet by ity of 14:31: mouth [place] 47 daily. Medical Branch tiotropium Yes [facility] (SPIRIVA 09-06 with ity of WITH 14:31: [facility] [place] HANDIHALER) 47 18 mcg and Me dical 18 mcg inhalation Branch inhalation capsules hydrOXYzine Yes as needed. Univers 50 mg 2-01 ity of tablet 14:31: [place] 47 Medical Branch EPINEPHrine Yes epinephrin Univers 0.3 mg/0.3 2-01 e 0.3 ity of mL 14:31: mg/0.3 mL [place] injection 47 injection, [facility] auto-injec Branch tor POTASSIUM-9 Yes 1{tbl} Take 1 Un trudy 9 ORAL 2-01 tablet by ity of 14:31: mouth [place] 47 daily. Medical Branch tiotropium Yes [facility] (SPIRIVA 2 with ity of WITH 14:31: [facility] [place] HANDIHALER) 47 18 mcg and Me dical 18 mcg inhalation Branch inhalation capsules hydrOXYzine Yes as needed. Univers 50 mg 2-01 ity of tablet 14:31: [place] 47 Medical Branch EPINEPHrine Yes epinephrin Univers 0.3 mg/0.3 2-01 e 0.3 ity of mL 14:31: mg/0.3 mL [place] injection 47 injection, [facility] auto-injec Branch tor POTASSIUM-9 Yes 1{tbl} Take 1 Un trudy 9 ORAL 2-01 tablet by ity of 14:31: mouth [place] 47 daily. Medical Branch tiotropium Yes [facility] (SPIRIVA 2 with ity of WITH 14:31: [facility] [place] HANDIHALER) 47 18 mcg and Me dical 18 mcg inhalation Branch inhalation capsules hydrOXYzine Yes as needed. Univers 50 mg 2-01 ity of tablet 14:31: [place] 47 Medical Branch EPINEPHrine Yes epinephrin Univers 0.3 mg/0.3 2-01 e 0.3 ity of mL 14:31: mg/0.3 mL [place] injection 47 injection, [facility] auto-injec Branch tor POTASSIUM-9 Yes 1{tbl} Take 1 Un trudy 9 ORAL 2-01 tablet by ity of 14:31: mouth [place] 47 daily. Medical Branch tiotropium Yes [facility] (SPIRIVA 2 with ity of WITH 14:31: [facility] [place] HANDIHALER) 47 18 mcg and Me dical 18 mcg inhalation Branch inhalation capsules hydrOXYzine Yes as needed. Univers 50 mg 2-01 ity of tablet 14:31: [place] 47 Medical Branch EPINEPHrine Yes epinephrin Univers 0.3 mg/0.3 2-01 e 0.3 ity of mL 14:31: mg/0.3 mL [place] injection 47 injection, [facility] auto-injec Branch tor POTASSIUM-9 Yes 1{tbl} Take 1 Un trudy 9 ORAL 2-01 tablet by ity of 14:31: mouth [place] 47 daily. Medical Branch tiotropium Yes [facility] (SPIRIVA 2-01 with ity of WITH 14:31: Hand[facility]Haler [place] HANDIHALER) 47 18 mcg and Me dical 18 mcg inhalation Branch inhalation capsules hydrOXYzine Yes as needed. Univers 50 mg 2-01 ity of tablet 14:31: [place] 47 Medical Branch EPINEPHrine Yes epinephrin Univers 0.3 mg/0.3 2-01 e 0.3 ity of mL 14:31: mg/0.3 mL [place] injection 47 injection, [facility] marily auto-injec Branch tor POTASSIUM-9 Yes 1{tbl} Take 1 Un trudy 9 ORAL 2-01 tablet by ity of 14:31: mouth [place] 47 daily. Medical Branch tiotropium Yes [facility] (SPIRIVA 2 with ity of WITH 14:31: HandiHaler [place] HANDIHALER) 47 18 mcg and Me dical 18 mcg inhalation Branch inhalation capsules hydrOXYzine Yes as needed. Univers 50 mg 2-01 ity of tablet 14:31: 47 Medical Branch EPINEPHrine Yes epinephrin Univers 0.3 mg/0.3 2-01 e 0.3 ity of mL 14:31: mg/0.3 mL [place] injection 47 injection, [facility] auto-injec Branch tor POTASSIUM-9 Yes 1{tbl} Take 1 Un trudy 9 ORAL 2-01 tablet by ity of 14:31: mouth [place] 47 daily. Medical Branch tiotropium Yes [facility] (SPIRIVA 2 with ity of WITH 14:31: HandiHaler [place] HANDIHALER) 47 18 mcg and Me dical 18 mcg inhalation Branch inhalation capsules hydrOXYzine Yes as needed. Univers 50 mg 2-01 ity of tablet 14:31: [place] 47 Medical Branch EPINEPHrine Yes epinephrin Univers 0.3 mg/0.3 2-01 e 0.3 ity of mL 14:31: mg/0.3 mL [place] injection 47 injection, [facility] marily auto-injec Branch tor POTASSIUM-9 Yes 1{tbl} Take 1 Un trudy 9 ORAL 2-01 tablet by ity of 14:31: mouth [place] 47 daily. Medical Branch tiotropium Yes [facility] (SPIRIVA 201 with ity of WITH 14:31: [facility] [place] HANDIHALER) 47 18 mcg and Me dical 18 mcg inhalation Branch inhalation capsules hydrOXYzine Yes as needed. [facility] 50 mg 2-01 ity of tablet 14:31: [place] 47 Medical Branch EPINEPHrine Yes epinephrin [facility] 0.3 mg/0.3 2-01 e 0.3 ity of mL 14:31: mg/0.3 mL [place] injection 47 injection, [facility] auto-injec Branch tor POTASSIUM-9 Yes 1{tbl} Take 1 Un trudy 9 ORAL 2-01 tablet by ity of 14:31: mouth [place] 47 daily. Medical Branch tiotropium Yes [facility] (SPIRIVA 201 with ity of WITH 14:31: [facility] [place] HAND[facility]) 47 18 mcg and Me dical 18 mcg inhalation Branch inhalation capsules hydrOXYzine Yes as needed. [facility] 50 mg 2-01 ity of tablet 14:31: [place] 47 Medical Branch EPINEPHrine Yes epinephrin [facility] 0.3 mg/0.3 2-01 e 0.3 ity of mL 14:31: mg/0.3 mL [place] injection 47 injection, [facility] auto-injec Branch tor POTASSIUM-9 Yes 1{tbl} Take 1 Un trudy 9 ORAL 2-01 tablet by ity of 14:31: mouth [place] 47 daily. Medical Branch tiotropium Yes [facility] (SPIRIVA 2-01 with ity of WITH 14:31: [facility] [place] HAND[facility]) 47 18 mcg and Me dical 18 mcg inhalation Branch inhalation capsules hydrOXYzine Yes as needed. [facility] 50 mg 2-01 ity of tablet 14:31: [place] 47 Medical Branch EPINEPHrine Yes epinephrin [facility] 0.3 mg/0.3 2-01 e 0.3 ity of mL 14:31: mg/0.3 mL [place] injection 47 injection, [facility] auto-injec Branch tor POTASSIUM-9 Yes 1{tbl} Take 1 Un trudy 9 ORAL 2-01 tablet by ity of 14:31: mouth [place] 47 daily. Medical Branch tiotropium Yes [facility] (SPIRIVA 2-01 with ity of WITH 14:31: [facility] [place] HANDIH[facility]) 47 18 mcg and Me dical 18 mcg inhalation Branch inhalation capsules hydrOXYzine Yes as needed. [facility] 50 mg 2-01 ity of tablet 14:31: [place] 47 Medical Branch EPINEPHrine Yes epinephrin [facility] 0.3 mg/0.3 2-01 e 0.3 ity of mL 14:31: mg/0.3 mL [place] injection 47 injection, [facility] auto-injec Branch tor POTASSIUM-9 Yes 1{tbl} Take 1 Un trudy 9 ORAL 2-01 tablet by ity of 14:31: mouth [place] 47 daily. Medical Branch tiotropium Yes [facility] (SPIRIVA 2 with ity of WITH 14:31: [facility] [place] HANDIHAL[facility]) 47 18 mcg and Me dical 18 mcg inhalation Branch inhalation capsules hydrOXYzine Yes as needed. [facility] 50 mg 2-01 ity of tablet 14:31: [place] 47 Medical Branch EPINEPHrine Yes epinephrin [facility] 0.3 mg/0.3 2-01 e 0.3 ity of mL 14:31: mg/0.3 mL [place] injection 47 injection, [facility] auto-injec Branch tor POTASSIUM-9 Yes 1{tbl} Take 1 Un trudy 9 ORAL 2-01 tablet by ity of 14:31: mouth [place] 47 daily. Medical Branch tiotropium Yes [facility] (SPIRIVA 2 with ity of WITH 14:31: [facility] [place] HANDIHAL[facility]) 47 18 mcg and Me dical 18 mcg inhalation Branch inhalation capsules hydrOXYzine Yes as needed. [facility] 50 mg 2-01 ity of tablet 14:31: [place] 47 Medical Branch EPINEPHrine Yes epinephrin [facility] 0.3 mg/0.3 2-01 e 0.3 ity of mL 14:31: mg/0.3 mL [place] injection 47 injection, [facility] auto-injec Branch tor POTASSIUM-9 Yes 1{tbl} Take 1 Un trudy 9 ORAL 2-01 tablet by ity of 14:31: mouth [place] 47 daily. Medical Branch tiotropium Yes [facility] (SPIRIVA 2 with ity of WITH 14:31: [employer] [place] HANDIHAL[facility]) 47 18 mcg and Me dical 18 mcg inhalation Branch inhalation capsules hydrOXYzine Yes as needed. [facility] 50 mg 2-01 ity of tablet 14:31: [place] 47 Medical Branch EPINEPHrine Yes epinephrin [facility] 0.3 mg/0.3 2-01 e 0.3 ity of mL 14:31: mg/0.3 mL [place] injection 47 injection, [facility] auto-injec Branch tor tiotropium Yes [facility] (SPIRIVA 2-01 with ity of WITH 14:31: [employer] [place] HANDIHAL[facility]) 47 18 mcg and Me dical 18 mcg inhalation Branch inhalation capsules hydrOXYzine Yes as needed. [facility] 50 mg 2-01 ity of tablet 14:31: [place] 47 Medical Branch EPINEPHrine Yes epinephrin [facility] 0.3 mg/0.3 2-01 e 0.3 ity of mL 14:31: mg/0.3 mL [place] injection 47 injection, [facility] auto-injec [place] tor POTASSIUM-9 Yes 1{tbl} Take 1 Un trudy 9 ORAL 2-01 tablet by ity of 14:31: mouth [place] 47 daily. Medical Branch EPINEPHrine Yes epinephrin [facility] 0.3 mg/0.3 2-01 e 0.3 ity of mL 14:31: mg/0.3 mL [place] injection 47 injection, [facility] auto-injec Branch tor EPINEPHrine Yes epinephrin [facility] 0.3 mg/0.3 2-01 e 0.3 ity of mL 14:31: mg/0.3 mL [place] injection 47 injection, [facility] auto-injec Branch tor EPINEPHrine Yes epinephrin [facility] 0.3 mg/0.3 2-01 e 0.3 ity of mL 14:31: mg/0.3 mL [place] injection 47 injection, [facility] auto-injec Branch tor EPINEPHrine Yes epinephrin [facility] 0.3 mg/0.3 2-01 e 0.3 ity of mL 14:31: mg/0.3 mL [place] injection 47 injection, [facility] auto-injec Branch tor EPINEPHrine Yes epinephrin [facility] 0.3 mg/0.3 2-01 e 0.3 ity of mL 14:31: mg/0.3 mL [place] injection 47 injection, [facility] auto[facility]injec Branch tor KCL 20 mEq 2023-0 Yes 20meq Take 1 [facility] ers tablet 1-23 tablet by ity of 00:00: mouth in [place] 00 the Medical morning. Branch KCL 20 mEq 2023-0 Yes 20meq Take 1 [facility] tablet 1-23 tablet by ity of 00:00: mouth in [place] the Medical morning. Branch KCL 20 mEq 2023-0 Yes 20meq Take 1 [facility] tablet 1-23 tablet by ity of 00:00: mouth in [place] the Medical morning. Branch KCL 20 mEq 2023-0 Yes 20meq Take 1 [facility] ers tablet 1-23 tablet by ity of 00:00: mouth in [place] the Medical morning. Branch KCL 20 mEq 2023-0 Yes 20meq Take 1 [facility] ers tablet 1-23 tablet by ity of 00:00: mouth in [place] the Medical morning. Branch KCL 20 mEq 2023-0 Yes 20meq Take 1 [facility] ers tablet 1-23 tablet by ity of 00:00: mouth in [place] the Medical morning. Branch KCL 20 mEq 2023-0 Yes 20meq Take 1 [facility] ers tablet 1-23 tablet by ity of 00:00: mouth in [place] the Medical morning. Branch KCL 20 mEq 2023-0 Yes 20meq Take 1 [facility] ers tablet 1-23 tablet by ity of 00:00: mouth in [place] the Medical morning. Branch KCL 20 mEq 2023-0 Yes 20meq Take 1 [facility] ers tablet 1-23 tablet by ity of 00:00: mouth in [place] the Medical morning. Branch KCL 20 mEq 2023-0 Yes 20meq Take 1 [facility] ers tablet 1-23 tablet by ity of 00:00: mouth in [place] the Medical morning. Branch KCL 20 mEq 2023-0 Yes 20meq Take 1 [facility] ers tablet 1-23 tablet by ity of 00:00: mouth in [place] the Medical morning. Branch KCL 20 mEq 2023-0 Yes 20meq Take 1 [facility] ers tablet 1-23 tablet by ity of 00:00: mouth in [place] the Medical morning. Branch KCL 20 mEq 2023-0 Yes 20meq Take 1 [facility] ers tablet 1-23 tablet by ity of 00:00: mouth in [place] the Medical morning. Branch KCL 20 mEq 2023-0 Yes 20meq Take 1 [facility] ers tablet 1-23 tablet by ity of 00:00: mouth in [place] the Medical morning. Branch KCL 20 mEq 2023-0 Yes 20meq Take 1 [facility] ers tablet 1-23 tablet by ity of 00:00: mouth in [place] the Medical morning. Branch KCL 20 mEq 2023-0 Yes 20meq Take 1 [facility] ers tablet 1-23 tablet by ity of 00:00: mouth in [place] the Medical morning. Branch KCL 20 mEq 2023-0 Yes 20meq Take 1 [facility] ers tablet 1-23 tablet by ity of 00:00: mouth in [place] the Medical morning. Branch KCL 20 mEq 2023-0 Yes 20meq Take 1 [facility] ers tablet 1-23 tablet by ity of 00:00: mouth in [place] the Medical morning. Branch KCL 20 mEq 2023-0 Yes 20meq Take 1 [facility] ers tablet 1-23 tablet by ity of 00:00: mouth in [place] the Medical morning. Branch KCL 20 mEq 2023-0 Yes 20meq Take 1 [facility] ers tablet 1-23 tablet by ity of 00:00: mouth in [place] the Medical morning. Branch KCL 20 mEq 2023-0 Yes 20meq Take 1 [facility] tablet 1-23 tablet by ity of 00:00: mouth in [place] the Medical morning. Branch KCL 20 mEq 2023-0 Yes 20meq Take 1 [facility] ers tablet 1-23 tablet by ity of 00:00: mouth in [place] the Medical morning. Branch KCL 20 mEq 2023-0 Yes 20meq Take 1 [facility] ers tablet 1-23 tablet by ity of 00:00: mouth in [place] the Medical morning. Branch KCL 20 mEq 2023-0 Yes 20meq Take 1 [facility] ers tablet 1-23 tablet by ity of 00:00: mouth in [place] the Medical morning. Branch KCL 20 mEq 2023-0 Yes 20meq Take 1 [facility] ers tablet 1-23 tablet by ity of 00:00: mouth in [place] the Medical morning. Branch KCL 20 mEq 2023-0 Yes 20meq Take 1 [facility] ers tablet 1-23 tablet by ity of 00:00: mouth in [place] the Medical morning. Branch KCL 20 mEq 2023-0 Yes 20meq Take 1 [facility] ers tablet 1-23 tablet by ity of 00:00: mouth in [place] 00 the Medical morning. Branch KCL 20 mEq 2023-0 Yes 20meq Take 1 [facility] ers tablet 1-23 tablet by ity of 00:00: mouth in [place] 00 the Medical morning. Branch KCL 20 mEq 2023-0 Yes 20meq Take 1 [facility] ers tablet 1-23 tablet by ity of 00:00: mouth in [place] 00 the Medical morning. Branch KCL 20 mEq 2023-0 Yes 20meq Take 1 [facility] ers tablet 1-23 tablet by ity of 00:00: mouth in [place] 00 the Medical morning. Branch KCL 20 mEq 2023-0 Yes 20meq Take 1 [facility] ers tablet 1-23 tablet by ity of 00:00: mouth in [place] 00 the Medical morning. Branch KCL 20 mEq 2023-0 Yes 20meq Take 1 [facility] ers tablet 1-23 tablet by ity of 00:00: mouth in [place] the Medical morning. Branch KCL 20 mEq 2023-0 Yes 20meq Take 1 [facility] ers tablet 1-23 tablet by ity of 00:00: mouth in [place] 00 the Medical morning. Branch KCL 20 mEq 2023-0 Yes 20meq Take 1 [facility] ers tablet 1-23 tablet by ity of 00:00: mouth in [place] 00 the Medical morning. Branch KCL 20 mEq 2023-0 Yes 20meq Take 1 [facility] ers tablet 1-23 tablet by ity of 00:00: mouth in [place] 00 the Medical morning. Branch KCL 20 mEq 2023-0 Yes 20meq Take 1 [facility] ers tablet 1-23 tablet by ity of 00:00: mouth in [place] 00 the Medical morning. Branch KCL 20 mEq 2023-0 Yes 20meq Take 1 [facility] ers tablet 1-23 tablet by ity of 00:00: mouth in [place] 00 the Medical morning. Branch KCL 20 mEq 2023-0 Yes 20meq Take 1 [facility] ers tablet 1-23 tablet by ity of 00:00: mouth in [place] 00 the Medical morning. Branch KCL 20 mEq 2023-0 2023- No 20meq Take 1 Uni vers tablet 1-23 10-03 tablet by ity of 00:00: 00:00 mouth in [place] 00 :00 the Medical morning. Branch methocarbam 2023-0 Yes [id number] 500mg Take 1 [facility] oL 500 mg 1-12 [id number] tablet by ity of tablet 00:00: mouth 3 [place] 00 (three) Medical times Branch daily as needed for Pain (scale 4-6). Use sparingly due to side effects methocarbam 3-0 Yes [id number] 500mg Take 1 [facility] oL 500 mg 1-12 [id number] tablet by ity of tablet 00:00: mouth 3 [place] 00 (three) Medical times Branch daily as needed for Pain (scale 4-6). Use sparingly due to side effects methocarbam 3-0 Yes [id number] 500mg Take 1 [facility] oL 500 mg 1-12 47101 tablet by ity of tablet 00:00: mouth 3 [place] 00 (three) Medical times Branch daily as needed for Pain (scale 4-6). Use sparingly due to side effects methocarbam 3-0 Yes [id number] 500mg Take 1 [facility] oL 500 mg 1- 30045 tablet by ity of tablet 00:00: mouth 3 00 (three) Medical times Branch daily as needed for Pain (scale 4-6). Use sparingly due to side effects methocarbam 3-0 Yes [id number] 500mg Take 1 [facility] oL 500 mg 1- 07223 tablet by ity of tablet 00:00: mouth 3 00 (three) Medical times Branch daily as needed for Pain (scale 4-6). Use sparingly due to side effects methocarbam 3-0 Yes [id number] 500mg Take 1 [facility] oL 500 mg 1- 18523 tablet by ity of tablet 00:00: mouth 3 00 (three) Medical times Branch daily as needed for Pain (scale 4-6). Use sparingly due to side effects methocarbam 3-0 Yes [id number] 500mg Take 1 [facility] oL 500 mg 1-12 42281 tablet by ity of tablet 00:00: mouth 3 [place] 00 (three) Medical times Branch daily as needed for Pain (scale 4-6). Use sparingly due to side effects methocarbam 3-0 Yes [id number] 500mg Take 1 [facility] oL 500 mg 1-12 16062 tablet by ity of tablet 00:00: mouth 3 [place] 00 (three) Medical times Branch daily as needed for Pain (scale 4-6). Use sparingly due to side effects methocarbam 3-0 Yes [id number] 500mg Take 1 [facility] oL 500 mg 1-12 13708 tablet by ity of tablet 00:00: mouth 3 00 (three) Medical times Branch daily as needed for Pain (scale 4-6). Use sparingly due to side effects methocarbam 3-0 Yes [id number] 500mg Take 1 [facility] oL 500 mg 1-12 96971 tablet by ity of tablet 00:00: mouth 3 00 (three) Medical times Branch daily as needed for Pain (scale 4-6). Use sparingly due to side effects methocarbam 3-0 Yes [id number] 500mg Take 1 [facility] oL 500 mg 1-12 43711 tablet by ity of tablet 00:00: mouth 3 00 (three) Medical times Branch daily as needed for Pain (scale 4-6). Use sparingly due to side effects methocarbam 3-0 Yes [id number] 500mg Take 1 [facility] oL 500 mg 1-12 [id number] tablet by ity of tablet 00:00: mouth 3 (three) Medical times Branch daily as needed for Pain (scale 4-6). Use sparingly due to side effects methocarbam 2022-0 Yes [id number] 500mg Take 1 [facility] oL 500 mg 1-12 63366 tablet by ity of tablet 00:00: mouth 3 00 (three) Medical times Branch daily as needed for Pain (scale 4-6). Use sparingly due to side effects methocarbam 3-0 Yes [id number] 500mg Take 1 [facility] oL 500 mg 1-12 02784 tablet by ity of tablet 00:00: mouth 3 00 (three) Medical times Branch daily as needed for Pain (scale 4-6). Use sparingly due to side effects methocarbam 3-0 Yes [id number] 500mg Take 1 [facility] oL 500 mg 1-12 39364 tablet by ity of tablet 00:00: mouth 3 00 (three) Medical times Branch daily as needed for Pain (scale 4-6). Use sparingly due to side effects methocarbam 3-0 Yes [id number] 500mg Take 1 [facility] oL 500 mg 1-12 38547 tablet by ity of tablet 00:00: mouth 3 00 (three) Medical times Branch daily as needed for Pain (scale 4-6). Use sparingly due to side effects methocarbam 3-0 Yes [id number] 500mg Take 1 [facility] oL 500 mg 1-12 82146 tablet by ity of tablet 00:00: mouth 3 (three) Medical times Branch daily as needed for Pain (scale 4-6). Use sparingly due to side effects methocarbam 3-0 Yes [id number] 500mg Take 1 [facility] oL 500 mg 1-12 13301 tablet by ity of tablet 00:00: mouth 3 (three) Medical times Branch daily as needed for Pain (scale 4-6). Use sparingly due to side effects methocarbam 3-0 Yes [id number] 500mg Take 1 [facility] oL 500 mg 1-12 37607 tablet by ity of tablet 00:00: mouth 3 (three) Medical times Branch daily as needed for Pain (scale 4-6). Use sparingly due to side effects methocarbam 3-0 Yes [id number] 500mg Take 1 [facility] oL 500 mg 1- 11352 tablet by ity of tablet 00:00: mouth (three) Medical times Branch daily as needed for Pain (scale 4-6). Use sparingly due to side effects methocarbam 3-0 Yes [id number] 500mg Take 1 [facility] oL 500 mg 1-12 38438 tablet by ity of tablet 00:00: mouth (three) Medical times Branch daily as needed for Pain (scale 4-6). Use sparingly due to side effects methocarbam 3-0 Yes [id number] 500mg Take 1 [facility] oL 500 mg 1-12 24288 tablet by ity of tablet 00:00: mouth 3 (three) Medical times Branch daily as needed for Pain (scale 4-6). Use sparingly due to side effects methocarbam 3-0 Yes [id number] 500mg Take 1 [facility] oL 500 mg 1-12 73334 tablet by ity of tablet 00:00: mouth 3 (three) Medical times Branch daily as needed for Pain (scale 4-6). Use sparingly due to side effects methocarbam 2023-0 Yes [id number] 500mg Take 1 [facility] oL 500 mg 1-12 08357 tablet by ity of tablet 00:00: mouth 3 (three) Medical times Branch daily as needed for Pain (scale 4-6). Use sparingly due to side effects methocarbam 3-0 Yes [id number] 500mg Take 1 [facility] oL 500 mg 1-12 37162 tablet by ity of tablet 00:00: mouth 3 (three) Medical times Branch daily as needed for Pain (scale 4-6). Use sparingly due to side effects methocarbam 3-0 Yes [id number] 500mg Take 1 [facility] oL 500 mg 1- 55441 tablet by ity of tablet 00:00: mouth 3 (three) Medical times Branch daily as needed for Pain (scale 4-6). Use sparingly due to side effects methocarbam 3-0 Yes [id number] 500mg Take 1 [facility] oL 500 mg 1- 38320 tablet by ity of tablet 00:00: mouth 3 (three) Medical times Branch daily as needed for Pain (scale 4-6). Use sparingly due to side effects methocarbam 3-0 Yes [id number] 500mg Take 1 [facility] oL 500 mg 1- 59865 tablet by ity of tablet 00:00: mouth 3 (three) Medical times Branch daily as needed for Pain (scale 4-6). Use sparingly due to side effects methocarbam 3-0 Yes [id number] 500mg Take 1 [facility] oL 500 mg 1- 28632 tablet by ity of tablet 00:00: mouth 3 (three) Medical times Branch daily as needed for Pain (scale 4-6). Use sparingly due to side effects methocarbam 3-0 Yes [id number] 500mg Take 1 [facility] oL 500 mg 1- 03555 tablet by ity of tablet 00:00: mouth 3 (three) Medical times Branch daily as needed for Pain (scale 4-6). Use sparingly due to side effects methocarbam 3-0 Yes [id number] 500mg Take 1 [facility] oL 500 mg 1-12 80954 tablet by ity of tablet 00:00: mouth 3 (three) Medical times Branch daily as needed for Pain (scale 4-6). Use sparingly due to side effects methocarbam 2023-0 Yes [id number] 500mg Take 1 [facility] oL 500 mg 1-12 [id number] tablet by ity of tablet 00:00: mouth 3 00 (three) Medical times Branch daily as needed for Pain (scale 4-6). Use sparingly due to side effects methocarbam 3-0 Yes [id number] 500mg Take 1 [facility] oL 500 mg 1-12 38070 tablet by ity of tablet 00:00: mouth 3 [place] 00 (three) Medical times Branch daily as needed for Pain (scale 4-6). Use sparingly due to side effects methocarbam 3-0 Yes [id number] 500mg Take 1 [facility] oL 500 mg 1-12 39833 tablet by ity of tablet 00:00: mouth 3 00 (three) Medical times Branch daily as needed for Pain (scale 4-6). Use sparingly due to side effects methocarbam 3-0 Yes [id number] 500mg Take 1 [facility] oL 500 mg 1-12 28557 tablet by ity of tablet 00:00: mouth 3 00 (three) Medical times Branch daily as needed for Pain (scale 4-6). Use sparingly due to side effects methocarbam 3-0 Yes [id number] 500mg Take 1 [facility] oL 500 mg 1- 05237 tablet by ity of tablet 00:00: mouth 3 00 (three) Medical times Branch daily as needed for Pain (scale 4-6). Use sparingly due to side effects methocarbam 3-0 Yes [id number] 500mg Take 1 [facility] oL 500 mg 1- 16912 tablet by ity of tablet 00:00: mouth 3 00 (three) Medical times Branch daily as needed for Pain (scale 4-6). Use sparingly due to side effects methocarbam 3-0 Yes [id number] 500mg Take 1 [facility] oL 500 mg 1-12 94686 tablet by ity of tablet 00:00: mouth 3 00 (three) Medical times Branch daily as needed for Pain (scale 4-6). Use sparingly due to side effects methocarbam 3-0 Yes [id number] 500mg Take 1 [facility] oL 500 mg 1-12 18718 tablet by ity of tablet 00:00: mouth 3 00 (three) Medical times Branch daily as needed for Pain (scale 4-6). Use sparingly due to side effects methocarbam 3-0 Yes [id number] 500mg Take 1 [facility] oL 500 mg 1-12 [id number] tablet by ity of tablet 00:00: mouth 3 [place] 00 (three) Medical times Branch daily as needed for Pain (scale 4-6). Use sparingly due to side effects methocarbam 2022-0 Yes [id number] 500mg Take 1 [facility] oL 500 mg 08-17 tablet by ity of tablet 00:00: mouth 3 [place] 00 (three) Medical times Branch daily as needed for Pain (scale 4-6). Use sparingly due to side effects methocarbam 2022-0 Yes [id number] 500mg Take 1 [facility] oL 500 mg 08-17 tablet by ity of tablet 00:00: mouth 3 [place] 00 (three) Medical times Branch daily as needed for Pain (scale 4-6). Use sparingly due to side effects methocarbam 2022-0 Yes [id number] 500mg Take 1 [facility] oL 500 mg 08-17 tablet by ity of tablet 00:00: mouth 3 [place] 00 (three) Medical times Branch daily as needed for Pain (scale 4-6). Use sparingly due to side effects methocarbam 2022- No [id number] 500mg Take 1 [facility] oL 500 mg 08-17 tablet by ity of tablet 00:00: 00:00 mouth 3 [place] 00 :00 (three) Medical times Branch daily as needed for Pain (scale 4-6). Use sparingly due to side effects furosemide 2022- No 40mg 40 mg, IV [facility] (LASIX) 08-16 Push, ity of injection 23:15: 22:21 [place]CE, 1 [place] 40 [place] 00 :[place] dose, On Medical Wed Branch 08/16/22 at 1715, [facility]KE furosemide 2022- Yes [id number] 80mg Take 1 [facility] 80 mg 08-16 tablet by ity of tablet 00:00: 05:59 mouth [place] 00 :00 every Medical morning Branch and evening for 30 days. furosemide 2022- Yes [id number] 80mg Take 1 [facility] 80 mg 08-16 tablet by ity of tablet 00:00: 05:59 mouth [place] 00 :00 every Medical morning Branch and evening for 30 days. furosemide 2022- Yes [id number] 80mg Take 1 [facility] 80 mg 08-16- tablet by ity of tablet 00:00: 05:59 mouth [place] 00 :00 every Medical morning Branch and evening for 30 days. furosemide 2022- Yes [id number] 80mg Take 1 [facility] 80 mg -06 07- tablet by ity of tablet 00:00: 05:59 mouth [place] 00 :00 every Medical morning Branch and evening for 30 days. furosemide 2022- Yes [id number] 80mg Take 1 [facility] 80 mg -06 07- tablet by ity of tablet 00:00: 05:59 mouth [place] 00 :00 every Medical morning Branch and evening for 30 days. furosemide 2022- Yes [id number] 80mg Take 1 [facility] 80 mg -06 07- tablet by ity of tablet 00:00: 05:59 mouth [place] 00 :00 every Medical morning Branch and evening for 30 days. furosemide 2022- Yes [id number] 80mg Take 1 [facility] 80 mg 08-16 tablet by ity of tablet 00:00: 05:59 mouth [place] 00 :00 every Medical morning Branch and evening for 30 days. furosemide 2022- Yes [id number] 80mg Take 1 [facility] 80 mg 08-16 tablet by ity of tablet 00:00: 05:59 mouth [place] 00 :00 every Medical morning Branch and evening for 30 days. furosemide 2022- Yes [id number] 80mg Take 1 [facility] 80 mg 08-16- tablet by ity of tablet 00:00: 05:59 mouth [place] 00 :00 every Medical morning Branch and evening for 30 days. furosemide 2022- Yes [id number] 80mg Take 1 [facility] 80 mg -06 07- tablet by ity of tablet 00:00: 05:59 mouth [place] 00 :00 every Medical morning Branch and evening for 30 days. furosemide 2022- Yes [id number] 80mg Take 1 [facility] 80 mg -06 07- tablet by ity of tablet 00:00: 05:59 mouth [place] 00 :00 every Medical morning Branch and evening for 30 days. furosemide 2022- Yes [id number] 80mg Take 1 [facility] 80 mg 1-06 07- tablet by ity of tablet 00:00: 05:59 mouth [place] 00 :00 every Medical morning Branch and evening for 30 days. furosemide 2022- Yes [id number] 80mg Take 1 [facility] 80 mg -06 07- tablet by ity of tablet 00:00: 05:59 mouth [place] 00 :00 every Medical morning Branch and evening for 30 days. furosemide 2022- Yes [id number] 80mg Take 1 [facility] 80 mg -06 07- tablet by ity of tablet 00:00: 05:59 mouth [place] 00 :00 every Medical morning Branch and evening for 30 days. furosemide 2022- Yes [id number] 80mg Take 1 [facility] 80 mg -06 07- tablet by ity of tablet 00:00: 05:59 mouth [place] 00 :00 every Medical morning Branch and evening for 30 days. furosemide 2022- Yes [id number] 80mg Take 1 [facility] 80 mg 08-16- tablet by ity of tablet 00:00: 05:59 mouth [place] 00 :00 every Medical morning Branch and evening for 30 days. furosemide 2022- Yes [id number] 80mg Take 1 [facility] 80 mg 08-16- tablet by ity of tablet 00:00: 05:59 mouth [place] 00 :00 every Medical morning Branch and evening for 30 days. furosemide 2022- Yes [id number] 80mg Take 1 [facility] 80 mg 08-16- tablet by ity of tablet 00:00: 05:59 mouth [place] 00 :00 every Medical morning Branch and evening for 30 days. furosemide 2022- Yes [id number] 80mg Take 1 [facility] 80 mg 08-16- tablet by ity of tablet 00:00: 05:59 mouth [place] 00 :00 every Medical morning Branch and evening for 30 days. furosemide 2022- Yes [id number] 80mg Take 1 [facility] 80 mg -06 07- tablet by ity of tablet 00:00: 05:59 mouth [place] 00 :00 every Medical morning Branch and evening for 30 days. furosemide 2022- Yes [id number] 80mg Take 1 [facility] 80 mg -06 07-11 tablet by ity of tablet 00:00: 05:59 mouth [place] 00 :00 every Medical morning Branch and evening for 30 days. furosemide 2022- Yes [id number] 80mg Take 1 [facility] 80 mg 08-16 tablet by ity of tablet 00:00: 05:59 mouth [place] 00 :00 every Medical morning Branch and evening for 30 days. furosemide 2022- Yes [id number] 80mg Take 1 [facility] 80 mg 08-16 tablet by ity of tablet 00:00: 05:59 mouth [place] 00 :00 every Medical morning Branch and evening for 30 days. furosemide 2022- Yes [id number] 80mg Take 1 [facility] 80 mg 08-16 tablet by ity of tablet 00:00: 05:59 mouth [place] 00 :00 every Medical morning Branch and evening for 30 days. furosemide 2022- Yes [id number] 80mg Take 1 [facility] 80 mg 08-16 tablet by ity of tablet 00:00: 05:59 mouth [place] 00 :00 every Medical morning Branch and evening for 30 days. furosemide 2022- Yes [id number] 80mg Take 1 [facility] 80 mg 08-16 tablet by ity of tablet 00:00: 05:59 mouth [place] 00 :00 every Medical morning Branch and evening for 30 days. estradioL 2021-08- No [id number] 2mg [facility] vers (ESTRING) 10-02 ity of vaginal 16:30: 15:37 [place] ring 2 mg 00 :00 [facility] estradioL 2021-08- No [id number] 2mg 2 mg, Un trudy (ESTRING) 10-02 Vaginal, ity o f vaginal 16:30: 15:37 ONCE, 1 [place] ring 2 mg 00 :[facility] 1030, Routine estradioL 2021-08- No [id number] 2mg [facility] vers (ESTRING) 10-02 ity of vaginal 16:30: 15:37 [place] ring 2 mg 00 :00 [facility] estradioL 2021-08- No [id number] 2mg 2 mg, Un trudy (ESTRING) 10-02 Vaginal, ity o f vaginal 16:30: 15:37 ONCE, 1 [place] ring 2 mg 00 :00 [facility] at 1030, Routine estradioL 2021-08- No [id number] 2mg [facility] vers (ESTRING) 10-02 ity of vaginal 16:30: 15:37 [place] ring 2 mg 00 :00 [facility] estradioL 2021-08- No [id number] 2mg 2 mg, Un trudy (ESTRING) 10-02 Vaginal, ity o f vaginal 16:30: 15:37 ONCE, 1 [place] ring 2 mg 00 :00 [facility]22 at 1030, Routine estradioL 2021-08- No [id number] 2mg [facility] vers (ESTRING) 10-02 ity of vaginal 16:30: 15:37 [place] ring 2 mg 00 :00 [facility] estradioL 2021-08- No [id number] 2mg 2 mg, Un trudy (ESTRING) 10-02 Vaginal, ity o f vaginal 16:30: 15:37 ONCE, 1 [place] ring 2 mg 00 :00 [facility]22 at 1030, Routine tiotropium 2021-08 Yes [facility] (SPIRIVA 10-02 with ity of WITH 08:53: [facility] [place] HANDIHALER) 17 18 mcg and Me dical 18 mcg inhalation Branch inhalation capsules hydrOXYzine 2021-08 Yes as needed. [facility] 50 mg - ity of tablet 08:53: [place] 17 Medical Branch EPINEPHrine 2021-08 Yes epinephrin [facility] 0.3 mg/0.3 - e 0.3 ity of mL 08:53: mg/0.3 mL [place] injection 17 injection, Medi marily auto-injec Branch tor tiotropium 2021-08 Yes [facility] (SPIRIVA 10-02 with ity of WITH 08:53: [facility] [place] HANDIHALER) 17 18 mcg and Me dical 18 mcg inhalation Branch inhalation capsules hydrOXYzine 2021-08 Yes as needed. [facility] 50 mg -27 ity of tablet 08:53: [place] 17 Medical Branch EPINEPHrine 2021-08 Yes epinephrin [facility] 0.3 mg/0.3 2-27 e 0.3 ity of mL 08:53: mg/0.3 mL [place] injection 17 injection, Medi marily auto-injec Branch tor tiotropium 2021-08 Yes [facility] (SPIRIVA 2-27 with ity of WITH 08:53: [facility] [place] HANDIHALER) 17 18 mcg and Me dical 18 mcg inhalation Branch inhalation capsules hydrOXYzine 2021-08 Yes as needed. [facility] 50 mg 2-27 ity of tablet 08:53: [place] 17 Medical Branch EPINEPHrine 2021-08 Yes epinephrin [facility] 0.3 mg/0.3 2-27 e 0.3 ity of mL 08:53: mg/0.3 mL [place] injection 17 injection, Medi marily auto-injec Branch tor tiotropium 2021-08 Yes [facility] (SPIRIVA 2-27 with ity of WITH 08:53: [facility] [place] HANDIHALER) 17 18 mcg and Me dical 18 mcg inhalation Branch inhalation capsules hydrOXYzine 2021-08 Yes as needed. [facility] 50 mg 2-27 ity of tablet 08:53: [place] 17 Medical Branch EPINEPHrine 2021-08 Yes epinephrin [facility] 0.3 mg/0.3 2-27 e 0.3 ity of mL 08:53: mg/0.3 mL [place] injection 17 injection, Medi marily auto-injec Branch tor tiotropium 2021-08 Yes [facility] (SPIRIVA 2-27 with ity of WITH 08:53: [facility] [place] HANDIHALER) 17 18 mcg and Me dical 18 mcg inhalation Branch inhalation capsules hydrOXYzine 2021-08 Yes as needed. [facility] 50 mg 2-27 ity of tablet 08:53: [place] 17 Medical Branch EPINEPHrine 2021-08 Yes epinephrin [facility] 0.3 mg/0.3 2-27 e 0.3 ity of mL 08:53: mg/0.3 mL [place] injection 17 injection, Medi marily auto-injec Branch tor tiotropium 2021-08 Yes [facility] (SPIRIVA 2-27 with ity of WITH 08:53: [facility] [place] HANDIHALER) 17 18 mcg and Me dical 18 mcg inhalation Branch inhalation capsules hydrOXYzine 2021-08 Yes as needed. [facility] 50 mg 2-27 ity of tablet 08:53: [place] 17 Medical Branch EPINEPHrine 2021-08 Yes epinephrin [facility] 0.3 mg/0.3 2-27 e 0.3 ity of mL 08:53: mg/0.3 mL [place] injection 17 injection, Medi marily auto-injec Branch tor tiotropium 2021-08 Yes [facility] (SPIRIVA 2-27 with ity of WITH 08:53: [facility] [place] HANDIHALER) 17 18 mcg and Me dical 18 mcg inhalation Branch inhalation capsules hydrOXYzine 2021-08 Yes as needed. [facility] 50 mg 2-27 ity of tablet 08:53: [place] 17 Medical Branch EPINEPHrine 2021-08 Yes epinephrin [facility] 0.3 mg/0.3 2-27 e 0.3 ity of mL 08:53: mg/0.3 mL [place] injection 17 injection, Medi marily auto-injec Branch tor tiotropium 2021-08 Yes [facility] (SPIRIVA 2- with ity of WITH 08:53: [facility] [place] HANDIHALER) 17 18 mcg and Me dical 18 mcg inhalation Branch inhalation capsules hydrOXYzine 2021-08 Yes as needed. [facility] 50 mg 2-27 ity of tablet 08:53: [place] 17 Medical Branch EPINEPHrine 2021-08 Yes epinephrin Univers 0.3 mg/0.3 2-27 e 0.3 ity of mL 08:53: mg/0.3 mL [place] injection 17 injection, Medi marily auto-injec Branch tor tiotropium 2021-08 Yes [facility] (SPIRIVA 2 with ity of WITH 08:53: [facility] [place] HANDIHALER) 17 18 mcg and Me dical 18 mcg inhalation Branch inhalation capsules hydrOXYzine 2021-08 Yes as needed. [facility] 50 mg 2-27 ity of tablet 08:53: [place] 17 Medical Branch EPINEPHrine 2021-08 Yes epinephrin [facility] 0.3 mg/0.3 2-27 e 0.3 ity of mL 08:53: mg/0.3 mL [place] injection 17 injection, Medi marily auto-injec Branch tor tiotropium 2021-08 Yes [facility] (SPIRIVA 2-27 with ity of WITH 08:53: [facility] [place] HANDIHALER) 17 18 mcg and Me dical 18 mcg inhalation Branch inhalation capsules hydrOXYzine 2021-08 Yes as needed. [facility] 50 mg 2-27 ity of tablet 08:53: [place] 17 Medical Branch EPINEPHrine 2021-08 Yes epinephrin [facility] 0.3 mg/0.3 2-27 e 0.3 ity of mL 08:53: mg/0.3 mL [place] injection 17 injection, Medi marily auto-injec Branch tor tiotropium 2021-08 Yes [facility] (SPIRIVA 2-27 with ity of WITH 08:53: [facility] [place] HANDIHALER) 17 18 mcg and Me dical 18 mcg inhalation Branch inhalation capsules hydrOXYzine 2021-08 Yes as needed. [facility] 50 mg 2-27 ity of tablet 08:53: [place] 17 Medical Branch EPINEPHrine 2021-08 Yes epinephrin [facility] 0.3 mg/0.3 2-27 e 0.3 ity of mL 08:53: mg/0.3 mL [place] injection 17 injection, Medi marily auto-injec Branch tor tiotropium 2021-08 Yes [facility] (SPIRIVA 2-27 with ity of WITH 08:53: [facility] [place] HANDIHALER) 17 18 mcg and Me dical 18 mcg inhalation Branch inhalation capsules hydrOXYzine 2021-08 Yes as needed. [facility] 50 mg 2-27 ity of tablet 08:53: [place] 17 Medical Branch EPINEPHrine 2021-08 Yes epinephrin [facility] 0.3 mg/0.3 2-27 e 0.3 ity of mL 08:53: mg/0.3 mL [place] injection 17 injection, Medi marily auto-injec Branch tor tiotropium 2021-08 Yes [facility] (SPIRIVA 2-27 with ity of WITH 08:53: [facility] [place] HANDIHALER) 17 18 mcg and Me dical 18 mcg inhalation Branch inhalation capsules hydrOXYzine 2021-08 Yes as needed. [facility] 50 mg 2-27 ity of tablet 08:53: [place] 17 Medical Branch EPINEPHrine 2021-08 Yes epinephrin [facility] 0.3 mg/0.3 2-27 e 0.3 ity of mL 08:53: mg/0.3 mL [place] injection 17 injection, Medi marily auto-injec Branch tor tiotropium 2021-08 Yes [facility] (SPIRIVA 2-27 with ity of WITH 08:53: [facility] [place] HANDIHALER) 17 18 mcg and Me dical 18 mcg inhalation Branch inhalation capsules hydrOXYzine 2021-08 Yes as needed. [facility] 50 mg 2-27 ity of tablet 08:53: [place] 17 Medical Branch EPINEPHrine 2021-08 Yes epinephrin [facility] 0.3 mg/0.3 2-27 e 0.3 ity of mL 08:53: mg/0.3 mL [place] injection 17 injection, Medi marily auto-injec Branch tor tiotropium 2021-08 Yes [facility] (SPIRIVA 2-27 with ity of WITH 08:53: [facility] [place] HANDIHALER) 17 18 mcg and Me dical 18 mcg inhalation Branch inhalation capsules hydrOXYzine 2021-08 Yes as needed. [facility] 50 mg 2-27 ity of tablet 08:53: [place] 17 Medical Branch EPINEPHrine 2021-08 Yes epinephrin Univers 0.3 mg/0.3 2-27 e 0.3 ity of mL 08:53: mg/0.3 mL [place] injection 17 injection, Medi marily auto-injec Branch tor tiotropium 2021-08 Yes [facility] (SPIRIVA 2-27 with ity of WITH 08:53: [facility] [place] HANDIHALER) 17 18 mcg and Me dical 18 mcg inhalation Branch inhalation capsules hydrOXYzine 2021-08 Yes as needed. [facility] 50 mg 2-27 ity of tablet 08:53: [place] 17 Medical Branch EPINEPHrine 2021-08 Yes epinephrin Univers 0.3 mg/0.3 2-27 e 0.3 ity of mL 08:53: mg/0.3 mL [place] injection 17 injection, Medi marily auto-injec Branch tor tiotropium 2021-08 Yes [facility] (SPIRIVA 2-27 with ity of WITH 08:53: [facility] [place] HANDIHALER) 17 18 mcg and Me dical 18 mcg inhalation Branch inhalation capsules hydrOXYzine 2021-08 Yes as needed. [facility] 50 mg 2-27 ity of tablet 08:53: [place] 17 Medical Branch EPINEPHrine 2021-08 Yes epinephrin [facility] 0.3 mg/0.3 2-27 e 0.3 ity of mL 08:53: mg/0.3 mL [place] injection 17 injection, Medi marily auto-injec Branch tor tiotropium 2021-08 Yes [facility] (SPIRIVA 2-27 with ity of WITH 08:53: [facility] [place] HANDIHALER) 17 18 mcg and Me dical 18 mcg inhalation Branch inhalation capsules hydrOXYzine 2021-08 Yes as needed. [facility] 50 mg 2-27 ity of tablet 08:53: [place] 17 Medical Branch EPINEPHrine 2021-08 Yes epinephrin [facility] 0.3 mg/0.3 2-27 e 0.3 ity of mL 08:53: mg/0.3 mL [place] injection 17 injection, Medi marily auto-injec Branch tor tiotropium 2021-08 Yes [facility] (SPIRIVA 2-27 with ity of WITH 08:53: [facility] [place] HANDIHALER) 17 18 mcg and Me dical 18 mcg inhalation Branch inhalation capsules hydrOXYzine 2021-08 Yes as needed. [facility] 50 mg 2-27 ity of tablet 08:53: [place] 17 Medical Branch EPINEPHrine 2021-08 Yes epinephrin [facility] 0.3 mg/0.3 2-27 e 0.3 ity of mL 08:53: mg/0.3 mL [place] injection 17 injection, Medi marily auto-injec Branch tor tiotropium 2021-08 Yes [facility] (SPIRIVA 2-27 with ity of WITH 08:53: [facility] [place] HANDIHALER) 17 18 mcg and Me dical 18 mcg inhalation Branch inhalation capsules hydrOXYzine 2021-08 Yes as needed. [facility] 50 mg 2-27 ity of tablet 08:53: [place] 17 Medical Branch EPINEPHrine 2021-08 Yes epinephrin [facility] 0.3 mg/0.3 2-27 e 0.3 ity of mL 08:53: mg/0.3 mL [place] injection 17 injection, Medi marily auto-injec Branch tor tiotropium 2021-08 Yes [facility] (SPIRIVA 2-27 with ity of WITH 08:53: [facility] [place] HANDIHALER) 17 18 mcg and Me dical 18 mcg inhalation Branch inhalation capsules hydrOXYzine 2021-08 Yes as needed. [facility] 50 mg 2-27 ity of tablet 08:53: [place] 17 Medical Branch EPINEPHrine 2021-08 Yes epinephrin Univers 0.3 mg/0.3 2-27 e 0.3 ity of mL 08:53: mg/0.3 mL [place] injection 17 injection, Medi marily auto-injec Branch tor tiotropium 2021-08 Yes [facility] (SPIRIVA 2-27 with ity of WITH 08:53: Hand[facility] [place] HANDIHALER) 17 18 mcg and Me dical 18 mcg inhalation Branch inhalation capsules hydrOXYzine 2021-08 Yes as needed. [facility] 50 mg 2-27 ity of tablet 08:53: [place] 17 Medical Branch EPINEPHrine 2021-08 Yes epinephrin Univers 0.3 mg/0.3 2-27 e 0.3 ity of mL 08:53: mg/0.3 mL [place] injection 17 injection, Medi marily auto-injec Branch tor BENZONATATE 2021-08 Yes [id number] TAKE 1 [facility] 100 mg 2-19 CAPSULE BY ity of capsule 00:00: MOUTH [place] 00 EVERY 8 Medical HOURS Branch NEEDED FOR COUGH BENZONATATE 2021-08 Yes [id number] TAKE 1 [facility] 100 mg 2-19 CAPSULE BY ity of capsule 00:00: MOUTH [place] 00 EVERY 8 Medical HOURS Branch NEEDED FOR COUGH BENZONATATE 2021-08 Yes [id number] TAKE 1 [facility] 100 mg 2-19 CAPSULE BY ity of capsule 00:00: MOUTH [place] 00 EVERY 8 Medical HOURS Branch NEEDED FOR COUGH BENZONATATE 2021-08 Yes [id number] TAKE 1 [facility] 100 mg 2-19 CAPSULE BY ity of capsule 00:00: MOUTH [place] 00 EVERY 8 Medical HOURS Branch NEEDED FOR COUGH BENZONATATE 2021-08 Yes [id number] TAKE 1 [facility] 100 mg 2-19 CAPSULE BY ity of capsule 00:00: MOUTH [place] 00 EVERY 8 Medical HOURS Branch NEEDED FOR COUGH BENZONATATE 2021-08 Yes [id number] TAKE 1 [facility] 100 mg 2-19 CAPSULE BY ity of capsule 00:00: MOUTH [place] 00 EVERY 8 Medical HOURS Branch NEEDED FOR COUGH BENZONATATE 2021-08 Yes [id number] TAKE 1 [facility] 100 mg 2-19 CAPSULE BY ity of capsule 00:00: MOUTH [place] 00 EVERY 8 Medical HOURS Branch NEEDED FOR COUGH BENZONATATE 2021-08 Yes [id number] TAKE 1 [facility] 100 mg 2-19 CAPSULE BY ity of capsule 00:00: MOUTH [place] 00 EVERY 8 Medical HOURS Branch NEEDED FOR COUGH BENZONATATE 2021-08 Yes [id number] TAKE 1 [facility] 100 mg 2-19 CAPSULE BY ity of capsule 00:00: MOUTH [place] 00 EVERY 8 Medical HOURS Branch NEEDED FOR COUGH BENZONATATE 2021-08 Yes [id number] TAKE 1 [facility] 100 mg 2-19 CAPSULE BY ity of capsule 00:00: MOUTH [place] 00 EVERY 8 Medical HOURS Branch NEEDED FOR COUGH BENZONATATE 2021-08 Yes [id number] TAKE 1 [facility] 100 mg 2-19 CAPSULE BY ity of capsule 00:00: MOUTH [place] 00 EVERY 8 Medical HOURS Branch NEEDED FOR COUGH BENZONATATE 2021-08 Yes [id number] TAKE 1 [facility] 100 mg 2-19 CAPSULE BY ity of capsule 00:00: MOUTH [place] 00 EVERY 8 Medical HOURS Branch NEEDED FOR COUGH BENZONATATE 2021-08 Yes [id number] TAKE 1 [facility] 100 mg 2-19 CAPSULE BY ity of capsule 00:00: MOUTH [place] 00 EVERY 8 Medical HOURS Branch NEEDED FOR COUGH BENZONATATE 2021-08 Yes [id number] TAKE 1 [facility] 100 mg 2-19 CAPSULE BY ity of capsule 00:00: MOUTH [place] 00 EVERY 8 Medical HOURS Branch NEEDED FOR COUGH BENZONATATE 2021-08 Yes [id number] TAKE 1 [facility] 100 mg 2-19 CAPSULE BY ity of capsule 00:00: MOUTH [place] 00 EVERY 8 Medical HOURS Branch NEEDED FOR COUGH BENZONATATE 2021-08 Yes [id number] TAKE 1 [facility] 100 mg 2-19 CAPSULE BY ity of capsule 00:00: MOUTH [place] 00 EVERY 8 Medical HOURS Branch NEEDED FOR COUGH BENZONATATE 2021-08 Yes [id number] TAKE 1 [facility] 100 mg 2-19 CAPSULE BY ity of capsule 00:00: MOUTH [place] 00 EVERY 8 Medical HOURS Branch NEEDED FOR COUGH BENZONATATE 2021-08 Yes [id number] TAKE 1 [facility] 100 mg 2-19 CAPSULE BY ity of capsule 00:00: MOUTH [place] 00 EVERY 8 Medical HOURS Branch NEEDED FOR COUGH BENZONATATE 2021-08 Yes [id number] TAKE 1 [facility] 100 mg 2-19 CAPSULE BY ity of capsule 00:00: MOUTH [place] 00 EVERY 8 Medical HOURS Branch NEEDED FOR COUGH BENZONATATE 2021-08 Yes [id number] TAKE 1 [facility] 100 mg 2-19 CAPSULE BY ity of capsule 00:00: MOUTH [place] 00 EVERY 8 Medical HOURS Branch NEEDED FOR COUGH BENZONATATE 2021-08 Yes [id number] TAKE 1 [facility] 100 mg 2-19 CAPSULE BY ity of capsule 00:00: MOUTH [place] 00 EVERY 8 Medical HOURS Branch NEEDED FOR COUGH BENZONATATE 2021-08 Yes [id number] TAKE 1 [facility] 100 mg 2-19 CAPSULE BY ity of capsule 00:00: MOUTH [place] 00 EVERY 8 Medical HOURS Branch NEEDED FOR COUGH BENZONATATE 2021-08 Yes [id number] TAKE 1 [facility] 100 mg 2-19 CAPSULE BY ity of capsule 00:00: MOUTH [place] 00 EVERY 8 Medical HOURS Branch NEEDED FOR COUGH BENZONATATE 2021-08 Yes [id number] TAKE 1 [facility] 100 mg 2-19 CAPSULE BY ity of capsule 00:00: MOUTH [place] 00 EVERY 8 Medical HOURS Branch NEEDED FOR COUGH BENZONATATE 2021-08 Yes [id number] TAKE 1 [facility] 100 mg 2-19 CAPSULE BY ity of capsule 00:00: MOUTH [place] 00 EVERY 8 Medical HOURS Branch NEEDED FOR COUGH BENZONATATE 2021-08 Yes [id number] TAKE 1 [facility] 100 mg 2-19 CAPSULE BY ity of capsule 00:00: MOUTH [place] 00 EVERY 8 Medical HOURS Branch NEEDED FOR COUGH BENZONATATE 2021-08 Yes [id number] TAKE 1 [facility] 100 mg 2-19 CAPSULE BY ity of capsule 00:00: MOUTH [place] 00 EVERY 8 Medical HOURS Branch NEEDED FOR COUGH BENZONATATE 2021-08 Yes [id number] TAKE 1 [facility] 100 mg 2-19 CAPSULE BY ity of capsule 00:00: MOUTH [place] 00 EVERY 8 Medical HOURS Branch NEEDED FOR COUGH BENZONATATE 2021-08 Yes [id number] TAKE 1 [facility] 100 mg 2-19 CAPSULE BY ity of capsule 00:00: MOUTH [place] 00 EVERY 8 Medical HOURS Branch NEEDED FOR COUGH BENZONATATE 2021-08 Yes [id number] TAKE 1 [facility] 100 mg 2-19 CAPSULE BY ity of capsule 00:00: MOUTH [place] 00 EVERY 8 Medical HOURS Branch NEEDED FOR COUGH BENZONATATE 2021-08 Yes [id number] TAKE 1 [facility] 100 mg 2-19 CAPSULE BY ity of capsule 00:00: MOUTH [place] 00 EVERY 8 Medical HOURS Branch NEEDED FOR COUGH BENZONATATE 2021-08 Yes [id number] TAKE 1 [facility] 100 mg 2-19 CAPSULE BY ity of capsule 00:00: MOUTH [place] 00 EVERY 8 Medical HOURS Branch NEEDED FOR COUGH BENZONATATE 2021-08 Yes [id number] TAKE 1 [facility] 100 mg 2-19 CAPSULE BY ity of capsule 00:00: MOUTH [place] 00 EVERY 8 Medical HOURS Branch NEEDED FOR COUGH BENZONATATE 2021-08 Yes [id number] TAKE 1 [facility] 100 mg 2-19 CAPSULE BY ity of capsule 00:00: MOUTH [place] 00 EVERY 8 Medical HOURS Branch NEEDED FOR COUGH BENZONATATE 2021-08 Yes [id number] TAKE 1 [facility] 100 mg 2-19 CAPSULE BY ity of capsule 00:00: MOUTH [place] 00 EVERY 8 Medical HOURS Branch NEEDED FOR COUGH BENZONATATE 2021-08 Yes [id number] TAKE 1 [facility] 100 mg 2-19 CAPSULE BY ity of capsule 00:00: MOUTH [place] 00 EVERY 8 Medical HOURS Branch NEEDED FOR COUGH BENZONATATE 2021-08 Yes [id number] TAKE 1 [facility] 100 mg 2-19 CAPSULE BY ity of capsule 00:00: MOUTH [place] 00 EVERY 8 Medical HOURS Branch NEEDED FOR COUGH BENZONATATE 2021-08 Yes [id number] TAKE 1 [facility] 100 mg 2-19 CAPSULE BY ity of capsule 00:00: MOUTH [place] 00 EVERY 8 Medical HOURS Branch NEEDED FOR COUGH BENZONATATE 2021-08 Yes [id number] TAKE 1 [facility] 100 mg 2-19 CAPSULE BY ity of capsule 00:00: MOUTH [place] 00 EVERY 8 Medical HOURS Branch NEEDED FOR COUGH BENZONATATE 2021-08 Yes [id number] TAKE 1 [facility] 100 mg 2-19 CAPSULE BY ity of capsule 00:00: MOUTH [place] 00 EVERY 8 Medical HOURS Branch NEEDED FOR COUGH BENZONATATE 2021-08 Yes [id number] TAKE 1 [facility] 100 mg 2-19 CAPSULE BY ity of capsule 00:00: MOUTH [place] 00 EVERY 8 Medical HOURS Branch NEEDED FOR COUGH BENZONATATE 2021-08 Yes [id number] TAKE 1 [facility] 100 mg 2-19 CAPSULE BY ity of capsule 00:00: MOUTH [place] 00 EVERY 8 Medical HOURS Branch NEEDED FOR COUGH BENZONATATE 2021-08 Yes [id number] TAKE 1 [facility] 100 mg 2-19 CAPSULE BY ity of capsule 00:00: MOUTH [place] 00 EVERY 8 Medical HOURS Branch NEEDED FOR COUGH BENZONATATE 2021-08 Yes [id number] TAKE 1 [facility] 100 mg 2-19 CAPSULE BY ity of capsule 00:00: MOUTH [place] 00 EVERY 8 Medical HOURS Branch NEEDED FOR COUGH BENZONATATE 2021-08 Yes [id number] TAKE 1 [facility] 100 mg 2-19 CAPSULE BY ity of capsule 00:00: MOUTH [place] 00 EVERY 8 Medical HOURS Branch NEEDED FOR COUGH BENZONATATE 2021-08 Yes [id number] TAKE 1 [facility] 100 mg 2-19 CAPSULE BY ity of capsule 00:00: MOUTH [place] 00 EVERY 8 Medical HOURS Branch NEEDED FOR COUGH BENZONATATE 2021-08 Yes [id number] TAKE 1 [facility] 100 mg 2-19 CAPSULE BY ity of capsule 00:00: MOUTH [place] 00 EVERY 8 Medical HOURS Branch NEEDED FOR COUGH BENZONATATE 2021-08 Yes [id number] TAKE 1 [facility] 100 mg 2-19 CAPSULE BY ity of capsule 00:00: MOUTH [place] 00 EVERY 8 Medical HOURS Branch NEEDED FOR COUGH BENZONATATE 2021-08 Yes [id number] TAKE 1 [facility] 100 mg 2-19 CAPSULE BY ity of capsule 00:00: MOUTH [place] 00 EVERY 8 Medical HOURS Branch NEEDED FOR COUGH BENZONATATE 2021-08 Yes [id number] TAKE 1 [facility] 100 mg 2-19 CAPSULE BY ity of capsule 00:00: MOUTH [place] 00 EVERY 8 Medical HOURS Branch NEEDED FOR COUGH BENZONATATE 2021-08 Yes [id number] TAKE 1 [facility] 100 mg 2-19 CAPSULE BY ity of capsule 00:00: MOUTH [place] 00 EVERY 8 Medical HOURS Branch NEEDED FOR COUGH BENZONATATE 2021-08 Yes [id number] TAKE 1 [facility] 100 mg 2-19 CAPSULE BY ity of capsule 00:00: MOUTH [place] 00 EVERY 8 Medical HOURS Branch NEEDED FOR COUGH BENZONATATE 2021-08 Yes [id number] TAKE 1 [facility] 100 mg 2-19 CAPSULE BY ity of capsule 00:00: MOUTH [place] 00 EVERY 8 Medical HOURS Branch NEEDED FOR COUGH BENZONATATE 2021-08 Yes [id number] TAKE 1 [facility] 100 mg 2-19 CAPSULE BY ity of capsule 00:00: MOUTH [place] 00 EVERY 8 Medical HOURS Branch NEEDED FOR COUGH BENZONATATE 2021-08 Yes [id number] TAKE 1 [facility] 100 mg 2-19 CAPSULE BY ity of capsule 00:00: MOUTH [place] 00 EVERY 8 Medical HOURS Branch NEEDED FOR COUGH BENZONATATE 2021-08 Yes [id number] TAKE 1 [facility] 100 mg 2-19 CAPSULE BY ity of capsule 00:00: MOUTH [place] 00 EVERY 8 Medical HOURS Branch NEEDED FOR COUGH BENZONATATE 2021-08 Yes [id number] TAKE 1 [facility] 100 mg 2-19 CAPSULE BY ity of capsule 00:00: MOUTH [place] 00 EVERY 8 Medical HOURS Branch NEEDED FOR COUGH BENZONATATE 2021-08 Yes [id number] TAKE 1 [facility] 100 mg 2-19 CAPSULE BY ity of capsule 00:00: MOUTH [place] 00 EVERY 8 Medical HOURS Branch NEEDED FOR COUGH BENZONATATE 2021-08 Yes [id number] TAKE 1 [facility] 100 mg 2-19 CAPSULE BY ity of capsule 00:00: MOUTH [place] 00 EVERY 8 Medical HOURS Branch NEEDED FOR COUGH BENZONATATE 2021-08- No [id number] TAKE 1 [facility] 100 mg 2-19 02-28 CAPSULE BY ity of capsule 00:00: 00:00 MOUTH [place] 00 :00 EVERY 8 Medical HOURS Branch NEEDED FOR COUGH benzonatate 2021-08 Yes [id number] 100mg Take 1 [facility] (TESSALON 2-16 capsule by ity of PERLES) 100 00:00: mouth [place] mg capsule 00 every 8 Medica l (eight) Branch hours as needed for Cough. fluticasone 2021-08 Yes [id number] 1{puff} Inhale 1 [facility] propion-logan 2-16 Puff every it y of meteroL 00:00: 12 [place] (ADVAIR 00 (twelve) Medical DISKUS) hours. Branch 250-50 mcg/dose inhalation disk benzonatate 2021-08 Yes [id number] 100mg Take 1 [facility] (TESSALON 2-16 capsule by ity of PERLES) 100 00:00: mouth [place] mg capsule 00 every 8 Medica l (eight) Branch hours as needed for Cough. fluticasone 2021-08 Yes [id number] 1{puff} Inhale 1 [facility] propion-logan 2-16 Puff every it y of meteroL 00:00: 12 [place] (ADVAIR 00 (twelve) Medical DISKUS) hours. Branch 250-50 mcg/dose inhalation disk fluticasone 2021-08 Yes [id number] 1{puff} Inhale 1 [facility] propion-logan 2-16 Puff every it y of meteroL 00:00: 12 [place] (ADVAIR 00 (twelve) Medical DISKUS) hours. Branch 250-50 mcg/dose inhalation disk fluticasone 2021-08 Yes [id number] 1{puff} Inhale 1 [facility] propion-logan 2-16 Puff every it y of meteroL 00:00: 12 [place] (ADVAIR () Medical DISKUS) hours. Branch 250-50 mcg/dose inhalation disk fluticasone 2021-08 Yes [id number] 1{puff} Inhale 1 [facility] propion-logan 2-16 Puff every it y of meteroL 00:00: 12 [place] (ADVAIR () Medical DISKUS) hours. Branch 250-50 mcg/dose inhalation disk fluticasone 2021-08 Yes [id number] 1{puff} Inhale 1 [facility] propion-logan 2-16 Puff every it y of meteroL 00:00: 12 [place] (ADVAIR () Medical DISKUS) hours. Branch 250-50 mcg/dose inhalation disk fluticasone 2021-08 Yes [id number] 1{puff} Inhale 1 [facility] propion-logan 2-16 Puff every it y of meteroL 00:00: 12 [place] (ADVAIR ) Medical DISKUS) hours. Branch 250-50 mcg/dose inhalation disk fluticasone 2021-08 Yes [id number] 1{puff} Inhale 1 [facility] propion-logan 2-16 Puff every it y of meteroL 00:00: 12 [place] (ADVAIR () Medical DISKUS) hours. Branch 250-50 mcg/dose inhalation disk fluticasone 2021-08 Yes [id number] 1{puff} Inhale 1 [facility] propion-logan 2-16 Puff every it y of meteroL 00:00: 12 [place] (ADVAIR () Medical DISKUS) hours. Branch 250-50 mcg/dose inhalation disk fluticasone 2021-08 Yes [id number] 1{puff} Inhale 1 [facility] propion-logan 2-16 Puff every it y of meteroL 00:00: 12 [place] (ADVAIR () Medical DISKUS) hours. Branch 250-50 mcg/dose inhalation disk fluticasone 2021-08 Yes [id number] 1{puff} Inhale 1 [facility] propion-logan 2-16 Puff every it y of meteroL 00:00: 12 [place] (ADVAIR () Medical DISKUS) hours. Branch 250-50 mcg/dose inhalation disk fluticasone 2021-08 Yes [id number] 1{puff} Inhale 1 [facility] propion-logan 2-16 Puff every it y of meteroL 00:00: 12 [place] (ADVAIR ) Medical DISKUS) hours. Branch 250-50 mcg/dose inhalation disk fluticasone 2021-08 Yes [id number] 1{puff} Inhale 1 [facility] propion-logan 2-16 Puff every it y of meteroL 00:00: 12 [place] (ADVAIR ) Medical DISKUS) hours. Branch 250-50 mcg/dose inhalation disk fluticasone 2021-08 Yes [id number] 1{puff} Inhale 1 [facility] propion-logan 2-16 Puff every it y of meteroL 00:00: 12 [place] (ADVAIR ) Medical DISKUS) hours. Branch 250-50 mcg/dose inhalation disk fluticasone 2021-08 Yes [id number] 1{puff} Inhale 1 [facility] propion-logan 2-16 Puff every it y of meteroL 00:00: 12 [place] (ADVAIR ) Medical DISKUS) hours. Branch 250-50 mcg/dose inhalation disk fluticasone 2021-08 Yes [id number] 1{puff} Inhale 1 [facility] propion-logan 2-16 Puff every it y of meteroL 00:00: 12 [place] (ADVAIR ) Medical DISKUS) hours. Branch 250-50 mcg/dose inhalation disk fluticasone 2021-08 Yes [id number] 1{puff} Inhale 1 [facility] prop[facility] 2-16 Puff every it y of meteroL 00:00: 12 [place] (ADVAIR ) Medical DISKUS) hours. Branch 250-50 mcg/dose inhalation disk fluticasone 2021-08 Yes [id number] 1{puff} Inhale 1 [facility] propion-logan 2-16 Puff every it y of meteroL 00:00: 12 [place] (ADVAIR ) Medical DISKUS) hours. Branch 250-50 mcg/dose inhalation disk fluticasone 2021-08 Yes [id number] 1{puff} Inhale 1 [facility] propion-logan 2-16 Puff every it y of meteroL 00:00: 12 [place] (ADVAIR 00 (twelve) Medical DISKUS) hours. Branch 250-50 mcg/dose inhalation disk fluticasone 2021-08 Yes [id number] 1{puff} Inhale 1 [facility] propion-logan 2-16 Puff every it y of meteroL 00:00: 12 [place] (ADVAIR 00 (twelve) Medical DISKUS) hours. Branch 250-50 mcg/dose inhalation disk fluticasone 2021-08 Yes [id number] 1{puff} Inhale 1 [facility] propion-logan 2-16 Puff every it y of meteroL 00:00: 12 [place] (ADVAIR 00 (twelve) Medical DISKUS) hours. Branch 250-50 mcg/dose inhalation disk fluticasone 2021-08 Yes [id number] 1{puff} Inhale 1 [facility] propion-logan 2-16 Puff every it y of meteroL 00:00: 12 [place] (ADVAIR 00 (twelve) Medical DISKUS) hours. Branch 250-50 mcg/dose inhalation disk fluticasone 2021-08 Yes [id number] 1{puff} Inhale 1 [facility] propion-logan 2-16 Puff every it y of meteroL 00:00: 12 [place] (ADVAIR 00 (twelve) Medical DISKUS) hours. Branch 250-50 mcg/dose inhalation disk fluticasone 2021-08 Yes [id number] 1{puff} Inhale 1 [facility] propion-logan 2-16 Puff every it y of meteroL 00:00: 12 [place] (ADVAIR 00 (twelve) Medical DISKUS) hours. Branch 250-50 mcg/dose inhalation disk fluticasone 2021-08 Yes [id number] 1{puff} Inhale 1 [facility] propion-logan 2-16 Puff every it y of meteroL 00:00: 12 [place] (ADVAIR 00 (twelve) Medical DISKUS) hours. Branch 250-50 mcg/dose inhalation disk fluticasone 2021-08 Yes [id number] 1{puff} Inhale 1 [facility] propion-logan 2-16 Puff every it y of meteroL 00:00: 12 [place] (ADVAIR 00 (twelve) Medical DISKUS) hours. Branch 250-50 mcg/dose inhalation disk fluticasone 2021-08 Yes [id number] 1{puff} Inhale 1 [facility] propion-logan 2-16 Puff every it y of meteroL 00:00: 12 [place] (ADVAIR (twelve) Medical DISKUS) hours. Branch 250-50 mcg/dose inhalation disk fluticasone 2021-08 Yes [id number] 1{puff} Inhale 1 [facility] propion-logan 2-16 Puff every it y of meteroL 00:00: 12 [place] (ADVAIR (twelve) Medical DISKUS) hours. Branch 250-50 mcg/dose inhalation disk fluticasone 2021-08 Yes [id number] 1{puff} Inhale 1 [facility] propion-logan 2-16 Puff every it y of meteroL 00:00: 12 [place] (ADVAIR (twelve) Medical DISKUS) hours. Branch 250-50 mcg/dose inhalation disk fluticasone 2021-08 Yes [id number] 1{puff} Inhale 1 [facility] propion-logan 2-16 Puff every it y of meteroL 00:00: 12 [place] (ADVAIR () Medical DISKUS) hours. Branch 250-50 mcg/dose inhalation disk fluticasone 2021-08 Yes [id number] 1{puff} Inhale 1 [facility] propion-logan 2-16 Puff every it y of meteroL 00:00: 12 [place] (ADVAIR () Medical DISKUS) hours. Branch 250-50 mcg/dose inhalation disk fluticasone 2021-08 Yes [id number] 1{puff} Inhale 1 [facility] propion-logan 2-16 Puff every it y of meteroL 00:00: 12 [place] (ADVAIR () Medical DISKUS) hours. Branch 250-50 mcg/dose inhalation disk fluticasone 2021-08 Yes [id number] 1{puff} Inhale 1 [facility] propion-logan 2-16 Puff every it y of meteroL 00:00: 12 [place] (ADVAIR (twelve) Medical DISKUS) hours. Branch 250-50 mcg/dose inhalation disk fluticasone 2021-08 Yes [id number] 1{puff} Inhale 1 [facility] propion-[facility]an 2-16 Puff every it y of meteroL 00:00: 12 [place] (ADVAIR () Medical DISKUS) hours. Branch 250-50 mcg/dose inhalation disk fluticasone 2021-08 Yes [id number] 1{puff} Inhale 1 [facility] propion-logan 2-16 Puff every it y of meteroL 00:00: 12 [place] (ADVAIR ) Medical DISKUS) hours. Branch 250-50 mcg/dose inhalation disk fluticasone 2021-08 Yes [id number] 1{puff} Inhale 1 [facility] propion-logan 2-16 Puff every it y of meteroL 00:00: 12 [place] (ADVAIR ) Medical DISKUS) hours. Branch 250-50 mcg/dose inhalation disk fluticasone 2021-08 Yes [id number] 1{puff} Inhale 1 [facility] propion-logan 2-16 Puff every it y of meteroL 00:00: 12 [place] (ADVAIR ) Medical DISKUS) hours. Branch 250-50 mcg/dose inhalation disk fluticasone 2021-08 Yes [id number] 1{puff} Inhale 1 [facility] propion-logan 2-16 Puff every it y of meteroL 00:00: 12 [place] (ADVAIR ) Medical DISKUS) hours. Branch 250-50 mcg/dose inhalation disk fluticasone 2021-08 Yes [id number] 1{puff} Inhale 1 [facility] propion-logan 2-16 Puff every it y of meteroL 00:00: 12 [place] (ADVAIR ) Medical DISKUS) hours. Branch 250-50 mcg/dose inhalation disk fluticasone 2021-08 Yes [id number] 1{puff} Inhale 1 [facility] propion-[facility]an 2-16 Puff every it y of meteroL 00:00: 12 [place] (ADVAIR ) Medical DISKUS) hours. Branch 250-50 mcg/dose inhalation disk fluticasone 2021-08 Yes [id number] 1{puff} Inhale 1 [facility] propion-logan 2-16 Puff every it y of meteroL 00:00: 12 [place] (ADVAIR ) Medical DISKUS) hours. Branch 250-50 mcg/dose inhalation disk fluticasone 2021-08 Yes [id number] 1{puff} Inhale 1 [facility] propion-[facility] 2-16 Puff every it y of meteroL 00:00: 12 [place] (ADVAIR 00 (twelve) Medical DISKUS) hours. Branch 250-50 mcg/dose inhalation disk fluticasone 2021-08 Yes [id number] 1{puff} Inhale 1 [facility] propion-[facility]an 2-16 Puff every it y of meteroL 00:00: 12 [place] (ADVAIR 00 (twelve) Medical DISKUS) hours. Branch 250-50 mcg/dose inhalation disk fluticasone 2021-08 Yes [id number] 1{puff} Inhale 1 [facility] propion-[facility]an 2-16 Puff every it y of meteroL 00:00: 12 [place] (ADVAIR (twelve) Medical DISKUS) hours. Branch 250-50 mcg/dose inhalation disk fluticasone 2021-08 Yes [id number] 1{puff} Inhale 1 [facility] propion-[facility]an 2-16 Puff every it y of meteroL 00:00: 12 [place] (ADVAIR (twelve) Medical DISKUS) hours. Branch 250-50 mcg/dose inhalation disk fluticasone 2021-08 Yes [id number] 1{puff} Inhale 1 [facility] propion-[facility]an 2-16 Puff every it y of meteroL 00:00: 12 [place] (ADVAIR (twelve) Medical DISKUS) hours. Branch 250-50 mcg/dose inhalation disk fluticasone 2021-08 Yes [id number] 1{puff} Inhale 1 [facility] propion-[facility]an 2-16 Puff every it y of meteroL 00:00: 12 [place] (ADVAIR 00 (twelve) Medical DISKUS) hours. Branch 250-50 mcg/dose inhalation disk fluticasone 2021-08 Yes [id number] 1{puff} Inhale 1 [facility] propion-[facility]an 2-16 Puff every it y of meteroL 00:00: 12 [place] (ADVAIR (twelve) Medical DISKUS) hours. Branch 250-50 mcg/dose inhalation disk fluticasone 2021-08 Yes [id number] 1{puff} Inhale 1 [facility]an 2-16 Puff every it y of meteroL 00:00: 12 [place] (ADVAIR 00 (twelve) Medical DISKUS) hours. Branch 250-50 mcg/dose inhalation disk fluticasone 2021-08 Yes [id number] 1{puff} Inhale 1 [facility] 2-16 Puff every it y of meteroL 00:00: 12 [place] (ADVAIR 00 (twelve) Medical DISKUS) hours. Branch 250-50 mcg/dose inhalation disk fluticasone 2021-08 Yes [id number] 1{puff} Inhale 1 [facility] 2-16 Puff every it y of meteroL 00:00: 12 [place] (ADVAIR 00 (twelve) Medical DISKUS) hours. Branch 250-50 mcg/dose inhalation disk fluticasone 2021-08 Yes [id number] 1{puff} Inhale 1 [facility] propion[facility] 2-16 Puff every it y of meteroL 00:00: 12 [place] (ADVAIR 00 (twelve) Medical DISKUS) hours. Branch 250-50 mcg/dose inhalation disk fluticasone 2021-08 Yes [id number] 1{puff} Inhale 1 [facility] propion-[facility]an 2-16 Puff every it y of meteroL 00:00: 12 [place] (ADVAIR (twelve) Medical DISKUS) hours. Branch 250-50 mcg/dose inhalation disk fluticasone 2021-08 Yes [id number] 1{puff} Inhale 1 [facility]ion[facility] 2-16 Puff every it y of meteroL 00:00: 12 [place] (ADVAIR (twelve) Medical DISKUS) hours. Branch 250-50 mcg/dose inhalation disk fluticasone 2021-08 Yes [id number] 1{puff} Inhale 1 [facility] propion-[facility]an 2-16 Puff every it y of meteroL 00:00: 12 [place] (ADVAIR 00 (twelve) Medical DISKUS) hours. Branch 250-50 mcg/dose inhalation disk fluticasone 2021-08 Yes [id number] 1{puff} Inhale 1 [facility] propion-logan 2-16 Puff every it y of meteroL 00:00: 12 [place] (ADVAIR 00 (twelve) Medical DISKUS) hours. Branch 250-50 mcg/dose inhalation disk fluticasone 2021-08 Yes [id number] 1{puff} Inhale 1 [facility] propion[facility]an 2-16 Puff every it y of meteroL 00:00: 12 [place] (ADVAIR 00 (twelve) Medical DISKUS) hours. Branch 250-50 mcg/dose inhalation disk fluticasone 2021-08 Yes [id number] 1{puff} Inhale 1 [facility] propion-logan 2-16 Puff every it y of meteroL 00:00: 12 [place] (ADVAIR ([facility]) Medical DISKUS) hours. Branch 250-50 mcg/dose inhalation disk fluticasone 2021-08 Yes [id number] 1{puff} Inhale 1 [facility] propion-logan 2-16 Puff every it y of meteroL 00:00: 12 [place] (ADVAIR ([facility]) Medical DISKUS) hours. Branch 250-50 mcg/dose inhalation disk fluticasone 2021-08 Yes [id number] 1{puff} Inhale 1 [facility] propion-logan 2-16 Puff every it y of meteroL 00:00: 12 [place] (ADVAIR ([facility]) Medical DISKUS) hours. Branch 250-50 mcg/dose inhalation disk fluticasone 2021-08 Yes [id number] 1{puff} Inhale 1 [facility] propion-logan 2-16 Puff every it y of meteroL 00:00: 12 [place] (ADVAIR ([facility]) Medical DISK) hours. Branch 250-50 mcg/dose inhalation disk fluticasone 2021-08 Yes [id number] 1{puff} Inhale 1 [facility] propion-logan 2-16 Puff every it y of meteroL 00:00: 12 [place] (ADVAIR ([facility]) Medical DISKUS) hours. Branch 250-50 mcg/dose inhalation disk fluticasone 2021-08 Yes [id number] 1{puff} Inhale 1 [facility] propion-logan 2-16 Puff every it y of meteroL 00:00: 12 [place] (ADVAIR ([facility]) Medical DISKUS) hours. Branch 250-50 mcg/dose inhalation disk doxycycline 2021-08- Yes [id number] 100mg Take 1 [facility] monohydrate 2-16 12-24 tablet by it y of 100 mg 00:00: 05:59 mouth in [place] tablet 00 :00 the Medical morning Branch and 1 tablet in the evening. Do all this for 7 days. doxycycline 2021-08- Yes [id number] 100mg Take 1 [facility] monohydrate 2-16 12-24 tablet by it y of 100 mg 00:00: 05:59 mouth in [place] tablet 00 :00 the Medical morning Branch and 1 tablet in the evening. Do all this for 7 days. doxycycline 2021-08- Yes [id number] 100mg Take 1 [facility] monohydrate 2-16 12-24 tablet by it y of 100 mg 00:00: 05:59 mouth in [place] tablet 00 :00 the Medical morning Branch and 1 tablet in the evening. Do all this for 7 days. doxycycline 2021-08- Yes [id number] 100mg Take 1 [facility] monohydrate 2-16 12-24 tablet by it y of 100 mg 00:00: 05:59 mouth in [place] tablet 00 :00 the Medical morning Branch and 1 tablet in the evening. Do all this for 7 days. doxycycline 2021-08- Yes [id number] 100mg Take 1 [facility] monohydrate 2-16 12-24 tablet by it y of 100 mg 00:00: 05:59 mouth in [place] tablet 00 :00 the Medical morning Branch and 1 tablet in the evening. Do all this for 7 days. doxycycline 2021-08- Yes [id number] 100mg Take 1 [facility] monohydrate 2-16 12-24 tablet by it y of 100 mg 00:00: 05:59 mouth in [place] tablet 00 :00 the Medical morning Branch and 1 tablet in the evening. Do all this for 7 days. doxycycline 2021-08- Yes [id number] 100mg Take 1 [facility] monohydrate 2-16 12-24 tablet by it y of 100 mg 00:00: 05:59 mouth in [place] tablet 00 :00 the Medical morning Branch and 1 tablet in the evening. Do all this for 7 days. doxycycline 2021-08- No [id number] 100mg Take 1 [facility] monohydrate 2-16 12-24 tablet by it y of 100 mg 00:00: 05:59 mouth in [place] tablet 00 :00 the Medical morning Branch and 1 tablet in the evening. Do all this for 7 days. doxycycline 2021-08- No [id number] 100mg Take 1 [facility] monohydrate 2-16 12-24 tablet by it y of 100 mg 00:00: 05:59 mouth in [place] tablet 00 :00 the Medical morning Branch and 1 tablet in the evening. Do all this for 7 days. predniSONE 2021-08- Yes [id number] 40mg Take 2 [facility] 20 mg 2-16 12-22 tablets by ity of tablet 00:00: 05:59 mouth in [place] 00 :00 the Medical morning Branch for 5 days. predniSONE 2021-08- Yes [id number] 40mg Take 2 [facility] 20 mg 2-16 12-22 tablets by ity of tablet 00:00: 05:59 mouth in [place] 00 :00 the Medical morning Branch for 5 days. predniSONE 2021-08- Yes [id number] 40mg Take 2 [facility] 20 mg 2-16 12-22 tablets by ity of tablet 00:00: 05:59 mouth in [place] 00 :00 the Medical morning Branch for 5 days. predniSONE 2021-08- Yes [id number] 40mg Take 2 [facility] 20 mg 2-16 12-22 tablets by ity of tablet 00:00: 05:59 mouth in [place] 00 :00 the Medical morning Branch for 5 days. predniSONE 2021-08- No [id number] 40mg Take 2 [facility] 20 mg 2-16 12-22 tablets by ity of tablet 00:00: 05:59 mouth in [place] 00 :00 the [facility] morning Branch for 5 days. predniSONE 2021-08- No [id number] 40mg Take 2 [facility] 20 mg 2-16 12-22 tablets by ity of tablet 00:00: 05:59 mouth in [place] 00 :00 the [facility] morning [place] for 5 days. predniSONE 2021-08- No [id number] 40mg Take 2 [facility] 20 mg 2-16 12-22 tablets by ity of tablet 00:00: 05:59 mouth in [place] 00 :00 the [facility] morning Branch for 5 days. predniSONE 2021-08- No [id number] 40mg Take 2 [facility] 20 mg 2-16 12-22 tablets by ity of tablet 00:00: 05:59 mouth in [place] 00 :00 the Medical morning [place] for 5 days. predniSONE 2021-08- No [id number] 40mg Take 2 [facility] 20 mg 2-16 12-22 tablets by ity of tablet 00:00: 05:59 mouth in [place] 00 :00 the [facility] morning Branch for 5 days. benzonatate 2021-08- No [id number] 100mg Take 1 [facility] (TESSALON 2-16 12-19 capsule by ity of REINALDO) 100 00:00: 00:00 [place] mg capsule 00 :00 every 8 Medica l (eight) Branch hours as needed for Cough. methocarbam 2021-08 Yes [id number] 500mg Take 1 [facility] oL 500 mg 2-09 tablet by ity o f tablet 00:00: mouth 3 (three) Medical times Branch daily as needed for Pain (scale 4-6). methocarbam 2021-08 Yes [id number] 500mg Take 1 [facility] oL 500 mg 2-09 tablet by ity o f tablet 00:00: mouth 3 (three) Medical times Branch daily as needed for Pain (scale 4-6). methocarbam 2021-08 Yes [id number] 500mg Take 1 [facility] oL 500 mg 2-09 tablet by ity o f tablet 00:00: mouth (three) Medical times Branch daily as needed for Pain (scale 4-6). methocarbam 2021-08 Yes [id number] 500mg Take 1 [facility] oL 500 mg 2-09 tablet by ity o f tablet 00:00: mouth (three) Medical times Branch daily as needed for Pain (scale 4-6). methocarbam 2021-08 Yes [id number] 500mg Take 1 [facility] oL 500 mg 2-09 tablet by ity o f tablet 00:00: mouth (three) Medical times Branch daily as needed for Pain (scale 4-6). methocarbam 2021-08 Yes [id number] 500mg Take 1 [facility] oL 500 mg 2-09 tablet by ity o f tablet 00:00: mouth (three) Medical times Branch daily as needed for Pain (scale 4-6). methocarbam 2021-08 Yes [id number] 500mg Take 1 [facility] oL 500 mg 2-09 tablet by ity o f tablet 00:00: mouth (three) Medical times Branch daily as needed for Pain (scale 4-6). methocarbam 2021-08 Yes [id number] 500mg Take 1 [facility] oL 500 mg 2-09 tablet by ity o f tablet 00:00: mouth 3 (three) Medical times Branch daily as needed for Pain (scale 4-6). methocarbam 2021-08 Yes [id number] 500mg Take 1 [facility] oL 500 mg 2-09 tablet by ity o f tablet 00:00: mouth 3 (three) Medical times Branch daily as needed for Pain (scale 4-6). methocarbam 2021-08 Yes [id number] 500mg Take 1 [facility] oL 500 mg 2-09 tablet by ity o f tablet 00:00: mouth 3 (three) Medical times Branch daily as needed for Pain (scale 4-6). methocarbam 2021-08 Yes [id number] 500mg Take 1 [facility] oL 500 mg 2-09 tablet by ity o f tablet 00:00: mouth 3 (three) Medical times Branch daily as needed for Pain (scale 4-6). methocarbam 2021-08 Yes [id number] 500mg Take 1 [facility] oL 500 mg 2-09 tablet by ity o f tablet 00:00: mouth (three) Medical times Branch daily as needed for Pain (scale 4-6). methocarbam 2021-08 Yes [id number] 500mg Take 1 [facility] oL 500 mg 2-09 tablet by ity o f tablet 00:00: mouth (three) Medical times Branch daily as needed for Pain (scale 4-6). methocarbam 2021-08 Yes [id number] 500mg Take 1 [facility] oL 500 mg 2-09 tablet by ity o f tablet 00:00: mouth (three) Medical times Branch daily as needed for Pain (scale 4-6). methocarbam 2021-08 Yes [id number] 500mg Take 1 [facility] oL 500 mg 2-09 tablet by ity o f tablet 00:00: mouth (three) Medical times Branch daily as needed for Pain (scale 4-6). methocarbam 2021-08 Yes [id number] 500mg Take 1 [facility] oL 500 mg 2-09 tablet by ity o f tablet 00:00: mouth 3 (three) Medical times Branch daily as needed for Pain (scale 4-6). methocarbam 2021-08 Yes [id number] 500mg Take 1 [facility] oL 500 mg 2-09 tablet by ity o f tablet 00:00: mouth 3 (three) Medical times Branch daily as needed for Pain (scale 4-6). methocarbam 2021-08 Yes [id number] 500mg Take 1 [facility] oL 500 mg 2-09 tablet by ity o f tablet 00:00: mouth 3 (three) Medical times Branch daily as needed for Pain (scale 4-6). methocarbam 2021-08 Yes [id number] 500mg Take 1 [facility] oL 500 mg 2-09 tablet by ity o f tablet 00:00: mouth 3 00 (three) Medical times Branch daily as needed for Pain (scale 4-6). methocarbam 2021-08 Yes [id number] 500mg Take 1 [facility] oL 500 mg 2-09 tablet by ity o f tablet 00:00: mouth 3 00 (three) Medical times Branch daily as needed for Pain (scale 4-6). methocarbam 2021-08 Yes [id number] 500mg Take 1 [facility] oL 500 mg 2-09 tablet by ity o f tablet 00:00: mouth 3 (three) Medical times Branch daily as needed for Pain (scale 4-6). methocarbam 2021-08 Yes [id number] 500mg Take 1 [facility] oL 500 mg 2-09 tablet by ity o f tablet 00:00: mouth 3 (three) Medical times Branch daily as needed for Pain (scale 4-6). methocarbam 2021-08- No [id number] 500mg Take 1 [facility] oL 500 mg 2-09 -12 tablet by ity of tablet 00:00: 00:00 mouth 3 00 :00 (three) Medical times Branch daily as needed for Pain (scale 4-6). methocarbam 2021-08- No [id number] 500mg Take 1 [facility] oL 500 mg 2-09 -12 tablet by ity of tablet 00:00: 00:00 mouth 3 00 :00 (three) Medical times Branch daily as needed for Pain (scale 4-6). gabapentin 2021-08 Yes 300mg Take 300 Un trudy 300 mg 1-26 mg by ity of capsule 00:00: mouth in 00 the Medical morning Branch and 300 mg in the evening. TRADJENTA 5 2021-08 Yes 1{tbl} Take 1 Un trudy mg tablet 1-26 tablet by ity o f 00:00: mouth 00 daily. Medical Branch PARoxetine 2021-08 Yes 10mg Take 10 mg U nivers 20 mg 1-26 by mouth ity of tablet 00:00: in the [place] 00 morning. Medical Branch atorvastati 2021-08 Yes 10mg Take 10 mg Univers n 10 mg 1-26 by mouth ity of tablet 00:00: at [place] [address] bedtime. Medical Branch budesonide 2021-08 Yes .5mg Inhale 0.5 U nivers 0.5 mg/2 mL 1-26 mg as ity of nebulizer 00:00: needed. [place] solution 00 Medical Branch gabapentin 2021-08 Yes 300mg Take 300 Un trudy 300 mg 1-26 mg by ity of capsule 00:00: mouth in [place] 00 the Medical morning Branch and 300 mg in the evening. TRADJENTA 5 2021-08 Yes 1{tbl} Take 1 Un trudy mg tablet 1-26 tablet by ity o f 00:00: mouth [place] 00 daily. Medical Branch PARoxetine 2021-08 Yes 10mg Take 10 mg U nivers 20 mg 1-26 by mouth ity of tablet 00:00: in the [place] [address] morning. Medical Branch atorvastati 2021-08 Yes 10mg Take 10 mg Univers n 10 mg 1-26 by mouth ity of tablet 00:00: at [place] [address] bedtime. Medical Branch budesonide 2021-08 Yes .5mg Inhale 0.5 U nivers 0.5 mg/2 mL 1-26 mg as ity of nebulizer 00:00: needed. [place] solution 00 Medical Branch gabapentin 2021-08 Yes 300mg Take 300 Un trudy 300 mg 1-26 mg by ity of capsule 00:00: mouth in [place] 00 the Medical morning Branch and 300 mg in the evening. TRADJENTA 5 2021-08 Yes 1{tbl} Take 1 Un trudy mg tablet 1-26 tablet by ity o f 00:00: mouth [place] 00 daily. Medical Branch PARoxetine 2021-08 Yes 10mg Take 10 mg U nivers 20 mg 1-26 by mouth ity of tablet 00:00: in the [place] [address] morning. Medical Branch atorvastati 2021-08 Yes 10mg Take 10 mg Univers n 10 mg 1-26 by mouth ity of tablet 00:00: at [place] [address] bedtime. Medical Branch budesonide 2021-08 Yes .5mg Inhale 0.5 U nivers 0.5 mg/2 mL 1-26 mg as ity of nebulizer 00:00: needed. [place] solution Medical Branch gabapentin 2021-08 Yes 300mg Take 300 Un trudy 300 mg 1-26 mg by ity of capsule 00:00: mouth in [place] 00 the Medical morning Branch and 300 mg in the evening. TRADJENTA 5 2021-08 Yes 1{tbl} Take 1 Un trudy mg tablet 1-26 tablet by ity o f 00:00: mouth [place] 00 daily. Medical Branch PARoxetine 2021-08 Yes 10mg Take 10 mg U nivers 20 mg 1-26 by mouth ity of tablet 00:00: in the [place] 00 morning. Medical Branch atorvastati 2021-08 Yes 10mg Take 10 mg Univers n 10 mg 1-26 by mouth ity of tablet 00:00: at [place] [address] bedtime. Medical Branch budesonide 2021-08 Yes .5mg Inhale 0.5 U nivers 0.5 mg/2 mL 1-26 mg as ity of nebulizer 00:00: needed. [place] solution 00 Medical Branch gabapentin 2021-08 Yes 300mg Take 300 Un trudy 300 mg 1-26 mg by ity of capsule 00:00: mouth in [place] the Medical morning Branch and 300 mg in the evening. TRADJENTA 5 2021-08 Yes 1{tbl} Take 1 Un trudy mg tablet 1-26 tablet by ity o f 00:00: mouth [place] daily. Medical Branch PARoxetine 2021-08 Yes 10mg Take 10 mg U nivers 20 mg 1-26 by mouth ity of tablet 00:00: in the [place] morning. Medical Branch atorvastati 2021-08 Yes 10mg Take 10 mg Univers n 10 mg 1-26 by mouth ity of tablet 00:00: at [place] [address] bedtime. Medical Branch budesonide 2021-08 Yes .5mg Inhale 0.5 U nivers 0.5 mg/2 mL 1-26 mg as ity of nebulizer 00:00: needed. [place] solution 00 Medical Branch gabapentin 2021-08 Yes 300mg Take 300 Un trudy 300 mg 1-26 mg by ity of capsule 00:00: mouth in [place] 00 the Medical morning Branch and 300 mg in the evening. TRADJENTA 5 2021-08 Yes 1{tbl} Take 1 Un trudy mg tablet 1-26 tablet by ity o f 00:00: mouth [place] 00 daily. Medical Branch PARoxetine 2021-08 Yes 10mg Take 10 mg U nivers 20 mg 1-26 by mouth ity of tablet 00:00: in the [place] morning. Medical Branch atorvastati 2021-08 Yes 10mg Take 10 mg Univers n 10 mg 1-26 by mouth ity of tablet 00:00: at [place] [address] bedtime. Medical Branch budesonide 2021-08 Yes .5mg Inhale 0.5 U nivers 0.5 mg/2 mL 1-26 mg as ity of nebulizer 00:00: needed. [place] solution 00 Medical Branch gabapentin 2021-08 Yes 300mg Take 300 Un trudy 300 mg 1-26 mg by ity of capsule 00:00: mouth in [place] the Medical morning Branch and 300 mg in the evening. TRADJENTA 5 2021-08 Yes 1{tbl} Take 1 Un trudy mg tablet 1-26 tablet by ity o f 00:00: mouth [place] daily. Medical Branch PARoxetine 2021-08 Yes 10mg Take 10 mg U nivers 20 mg 1-26 by mouth ity of tablet 00:00: in the [place] morning. Medical Branch atorvastati 2021-08 Yes 10mg Take 10 mg Univers n 10 mg 1-26 by mouth ity of tablet 00:00: at [place] [address] bedtime. Medical Branch budesonide 2021-08 Yes .5mg Inhale 0.5 U nivers 0.5 mg/2 mL 1-26 mg as ity of nebulizer 00:00: needed. [place] solution 00 Medical Branch gabapentin 2021-08 Yes 300mg Take 300 Un trudy 300 mg 1-26 mg by ity of capsule 00:00: mouth in [place] 00 the Medical morning Branch and 300 mg in the evening. TRADJENTA 5 2021-08 Yes 1{tbl} Take 1 Un trudy mg tablet 1-26 tablet by ity o f 00:00: mouth [place] 00 daily. Medical Branch PARoxetine 2021-08 Yes 10mg Take 10 mg U nivers 20 mg 1-26 by mouth ity of tablet 00:00: in the [place] [address] morning. Medical Branch atorvastati 2021-08 Yes 10mg Take 10 mg [facility] n 10 mg 1-26 by mouth ity of tablet 00:00: at [place] [address] bedtime. Medical Branch budesonide 2021-08 Yes .5mg Inhale 0.5 U nivers 0.5 mg/2 mL 1-26 mg as ity of nebulizer 00:00: needed. [place] solution 00 Medical Branch gabapentin 2021-08 Yes 300mg Take 300 Un trudy 300 mg 1-26 mg by ity of capsule 00:00: mouth in [place] the Medical morning Branch and 300 mg in the evening. TRADJENTA 5 2021-08 Yes 1{tbl} Take 1 Un trudy mg tablet 1-26 tablet by ity o f 00:00: mouth [place] 00 daily. Medical Branch PARoxetine 2021-08 Yes 10mg Take 10 mg U nivers 20 mg 1-26 by mouth ity of tablet 00:00: in the [place] [address] morning. Medical Branch atorvastati 2021-08 Yes 10mg Take 10 mg [facility] n 10 mg 1-26 by mouth ity of tablet 00:00: at [place] [address] bedtime. Medical Branch budesonide 2021-08 Yes .5mg Inhale 0.5 U nivers 0.5 mg/2 mL 1-26 mg as ity of nebulizer 00:00: needed. [place] solution 00 Medical Branch gabapentin 2021-08 Yes 300mg Take 300 Un trudy 300 mg 1-26 mg by ity of capsule 00:00: mouth in [place] the Medical morning Branch and 300 mg in the evening. TRADJENTA 5 2021-08 Yes 1{tbl} Take 1 Un trudy mg tablet 1-26 tablet by ity o f 00:00: mouth [place] daily. Medical Branch PARoxetine 2021-08 Yes 10mg Take 10 mg U nivers 20 mg 1-26 by mouth ity of tablet 00:00: in the [place] [address] morning. Medical Branch atorvastati 2021-08 Yes 10mg Take 10 mg [facility] 10 mg 1-26 by mouth ity of tablet 00:00: at [place] [address] bedtime. Medical Branch budesonide 2021-08 Yes .5mg Inhale 0.5 U nivers 0.5 mg/2 mL 1-26 mg as ity of nebulizer 00:00: needed. [place] solution 00 [facility] Branch gabapentin 2021-08 Yes 300mg Take 300 Un trudy 300 mg 1-26 mg by ity of capsule 00:00: mouth in [place] 00 the Medical morning Branch and 300 mg in the evening. TRADJENTA 5 2021-08 Yes 1{tbl} Take 1 Un trudy mg tablet 1-26 tablet by ity o f 00:00: mouth [place] 00 daily. [facility] PARoxetine 2021-08 Yes 10mg Take 10 mg U nivers 20 mg 1-26 by mouth ity of tablet 00:00: in the [place] 00 morning. [facility] Branch atorvastati 2021-08 Yes 10mg Take 10 mg [facility] n 10 mg 1-26 by mouth ity of tablet 00:00: at [place] [address] bedtime. [facility] budesonide 2021-08 Yes .5mg Inhale 0.5 U nivers 0.5 mg/2 mL 1-26 mg as ity of nebulizer 00:00: needed. [place] solution 00 [facility] gabapentin 2021-08 Yes 300mg Take 300 Un trudy 300 mg 1-26 mg by ity of capsule 00:00: mouth in [place] the Medical morning Branch and 300 mg in the evening. TRADJENTA 5 2021-08 Yes 1{tbl} Take 1 Un trudy mg tablet 1-26 tablet by ity o f 00:00: mouth [place] 00 daily. [facility] PARoxetine 2021-08 Yes 10mg Take 10 mg U nivers 20 mg 1-26 by mouth ity of tablet 00:00: in the [place] morning. [facility] atorvastati 2021-08 Yes 10mg Take 10 mg [facility] n 10 mg 1-26 by mouth ity of tablet 00:00: at [place] [address] bedtime. [facility] budesonide 2021-08 Yes .5mg Inhale 0.5 U nivers 0.5 mg/2 mL 1-26 mg as ity of nebulizer 00:00: needed. [place] solution 00 [facility] Branch gabapentin 2021-08 Yes 300mg Take 300 Un trudy 300 mg 1-26 mg by ity of capsule 00:00: mouth in [place] 00 the Medical morning Branch and 300 mg in the evening. TRADJENTA 5 2021-08 Yes 1{tbl} Take 1 Un trudy mg tablet 1-26 tablet by ity o f 00:00: mouth [place] 00 daily. [facility] PARoxetine 2021-08 Yes 10mg Take 10 mg U nivers 20 mg 1-26 by mouth ity of tablet 00:00: in the [place] 00 morning. [facility] atorvastati 2021-08 Yes 10mg Take 10 mg [facility] n 10 mg 1-26 by mouth ity of tablet 00:00: at [place] [address] bedtime. [facility] budesonide 2021-08 Yes .5mg Inhale 0.5 U nivers 0.5 mg/2 mL 1-26 mg as ity of nebulizer 00:00: needed. [place] solution 00 [facility] Branch gabapentin 2021-08 Yes 300mg Take 300 Un trudy 300 mg 1-26 mg by ity of capsule 00:00: mouth in [place] 00 the Medical morning Branch and 300 mg in the evening. TRADJENTA 5 2021-08 Yes 1{tbl} Take 1 Un trudy mg tablet 1-26 tablet by ity o f 00:00: mouth [place] 00 daily. [facility] PARoxetine 2021-08 Yes 10mg Take 10 mg U nivers 20 mg 1-26 by mouth ity of tablet 00:00: in the [place] 00 morning. [facility] Branch atorvastati 2021-08 Yes 10mg Take 10 mg [facility] n 10 mg 1-26 by mouth ity of tablet 00:00: at [place] [address] bedtime. [facility] budesonide 2021-08 Yes .5mg Inhale 0.5 U nivers 0.5 mg/2 mL 1-26 mg as ity of nebulizer 00:00: needed. [place] solution 00 [facility] gabapentin 2021-08 Yes 300mg Take 300 Un trudy 300 mg 1-26 mg by ity of capsule 00:00: mouth in [place] 00 the Medical morning Branch and 300 mg in the evening. TRADJENTA 5 2021-08 Yes 1{tbl} Take 1 Un trudy mg tablet 1-26 tablet by ity o f 00:00: mouth [place] 00 daily. [facility] PARoxetine 2021-08 Yes 10mg Take 10 mg U nivers 20 mg 1-26 by mouth ity of tablet 00:00: in the [place] 00 morning. [facility] atorvastati 2021-08 Yes 10mg Take 10 mg [facility] n 10 mg 1-26 by mouth ity of tablet 00:00: at [place] [address] bedtime. [facility] budesonide 2021-08 Yes .5mg Inhale 0.5 U nivers 0.5 mg/2 mL 1-26 mg as ity of nebulizer 00:00: needed. [place] solution 00 [facility] gabapentin 2021-08 Yes 300mg Take 300 Un trudy 300 mg 1-26 mg by ity of capsule 00:00: mouth in [place] 00 the Medical morning Branch and 300 mg in the evening. TRADJENTA 5 2021-08 Yes 1{tbl} Take 1 Un trudy mg tablet 1-26 tablet by ity o f 00:00: mouth [place] 00 daily. [facility] PARoxetine 2021-08 Yes 10mg Take 10 mg U nivers 20 mg 1-26 by mouth ity of tablet 00:00: in the [place] morning. [facility] atorvastati 2021-08 Yes 10mg Take 10 mg [facility] n 10 mg 1-26 by mouth ity of tablet 00:00: at [place] [address] bedtime. [facility] budesonide 2021-08 Yes .5mg Inhale 0.5 U nivers 0.5 mg/2 mL 1-26 mg as ity of nebulizer 00:00: needed. [place] solution 00 [facility] gabapentin 2021-08 Yes 300mg Take 300 Un trudy 300 mg 1-26 mg by ity of capsule 00:00: mouth in [place] the Medical morning Branch and 300 mg in the evening. TRADJENTA 5 2021-08 Yes 1{tbl} Take 1 Un trudy mg tablet 1-26 tablet by ity o f 00:00: mouth [place] daily. [facility] PARoxetine 2021-08 Yes 10mg Take 10 mg U nivers 20 mg 1-26 by mouth ity of tablet 00:00: in the [place] morning. [facility] atorvastati 2021-08 Yes 10mg Take 10 mg [facility] n 10 mg 1-26 by mouth ity of tablet 00:00: at [place] [address] bedtime. [facility] budesonide 2021-08 Yes .5mg Inhale 0.5 U nivers 0.5 mg/2 mL 1-26 mg as ity of nebulizer 00:00: needed. [place] solution 00 [facility] gabapentin 2021-08 Yes 300mg Take 300 Un trudy 300 mg 1-26 mg by ity of capsule 00:00: mouth in [place] 00 the Medical morning Branch and 300 mg in the evening. TRADJENTA 5 2021-08 Yes 1{tbl} Take 1 Un trudy mg tablet 1-26 tablet by ity o f 00:00: mouth [place] 00 daily. [facility] PARoxetine 2021-08 Yes 10mg Take 10 mg U nivers 20 mg 1-26 by mouth ity of tablet 00:00: in the [place] 00 morning. [facility] atorvastati 2021-08 Yes 10mg Take 10 mg [facility] n 10 mg 1-26 by mouth ity of tablet 00:00: at [place] [address] bedtime. [facility] budesonide 2021-08 Yes .5mg Inhale 0.5 U nivers 0.5 mg/2 mL 1-26 mg as ity of nebulizer 00:00: needed. [place] solution 00 [facility] gabapentin 2021-08 Yes 300mg Take 300 Un trudy 300 mg 1-26 mg by ity of capsule 00:00: mouth in [place] 00 the Medical morning Branch and 300 mg in the evening. TRADJENTA 5 2021-08 Yes 1{tbl} Take 1 Un trudy mg tablet 1-26 tablet by ity o f 00:00: mouth [place] 00 daily. [facility] PARoxetine 2021-08 Yes 10mg Take 10 mg U nivers 20 mg 1-26 by mouth ity of tablet 00:00: in the [place] morning. [facility] atorvastati 2021-08 Yes 10mg Take 10 mg [facility] n 10 mg 1-26 by mouth ity of tablet 00:00: at [place] [address] bedtime. [facility] budesonide 2021-08 Yes .5mg Inhale 0.5 U nivers 0.5 mg/2 mL 1-26 mg as ity of nebulizer 00:00: needed. [place] solution 00 [facility] gabapentin 2021-08 Yes 300mg Take 300 Un trudy 300 mg 1-26 mg by ity of capsule 00:00: mouth in [place] 00 the Medical morning Branch and 300 mg in the evening. TRADJENTA 5 2021-08 Yes 1{tbl} Take 1 Un trudy mg tablet 1-26 tablet by ity o f 00:00: mouth [place] 00 daily. [facility] PARoxetine 2021-08 Yes 10mg Take 10 mg U nivers 20 mg 1-26 by mouth ity of tablet 00:00: in the [place] 00 morning. [facility] atorvastati 2021-08 Yes 10mg Take 10 mg [facility] n 10 mg 1-26 by mouth ity of tablet 00:00: at [place] [address] bedtime. [facility] budesonide 2021-08 Yes .5mg Inhale 0.5 U nivers 0.5 mg/2 mL 1-26 mg as ity of nebulizer 00:00: needed. [place] solution 00 [facility] gabapentin 2021-08 Yes 300mg Take 300 Un trudy 300 mg 1-26 mg by ity of capsule 00:00: mouth in [place] 00 the Medical morning Branch and 300 mg in the evening. TRADJENTA 5 2021-08 Yes 1{tbl} Take 1 Un trudy mg tablet 1-26 tablet by ity o f 00:00: mouth [place] 00 daily. [facility] PARoxetine 2021-08 Yes 10mg Take 10 mg U nivers 20 mg 1-26 by mouth ity of tablet 00:00: in the [place] [address] morning. [facility] Branch atorvastati 2021-08 Yes 10mg Take 10 mg [facility] n 10 mg 1-26 by mouth ity of tablet 00:00: at [place] [address] bedtime. [facility] Branch budesonide 2021-08 Yes .5mg Inhale 0.5 U nivers 0.5 mg/2 mL 1-26 mg as ity of nebulizer 00:00: needed. [place] solution 00 [facility] gabapentin 2021-08 Yes 300mg Take 300 Un trudy 300 mg 1-26 mg by ity of capsule 00:00: mouth in [place] 00 the Medical morning Branch and 300 mg in the evening. TRADJENTA 5 2021-08 Yes 1{tbl} Take 1 Un trudy mg tablet 1-26 tablet by ity o f 00:00: mouth [place] 00 daily. [facility] PARoxetine 2021-08 Yes 10mg Take 10 mg U nivers 20 mg 1-26 by mouth ity of tablet 00:00: in the [place] 00 morning. [facility] Branch atorvastati 2021-08 Yes 10mg Take 10 mg [facility] n 10 mg 1-26 by mouth ity of tablet 00:00: at [place] [address] bedtime. [facility] budesonide 2021-08 Yes .5mg Inhale 0.5 U nivers 0.5 mg/2 mL 1-26 mg as ity of nebulizer 00:00: needed. [place] solution 00 [facility] Branch gabapentin 2021-08 Yes 300mg Take 300 Un trudy 300 mg 1-26 mg by ity of capsule 00:00: mouth in [place] 00 the Medical morning Branch and 300 mg in the evening. TRADJENTA 5 2021-08 Yes 1{tbl} Take 1 Un trudy mg tablet 1-26 tablet by ity o f 00:00: mouth [place] 00 daily. [facility] Branch PARoxetine 2021-08 Yes 10mg Take 10 mg U nivers 20 mg 1-26 by mouth ity of tablet 00:00: in the [place] 00 morning. [facility] Branch atorvastati 2021-08 Yes 10mg Take 10 mg [facility] n 10 mg 1-26 by mouth ity of tablet 00:00: at [place] [address] bedtime. [facility] budesonide 2021-08 Yes .5mg Inhale 0.5 U nivers 0.5 mg/2 mL 1-26 mg as ity of nebulizer 00:00: needed. [place] solution 00 [facility] gabapentin 2021-08 Yes 300mg Take 300 Un trudy 300 mg 1-26 mg by ity of capsule 00:00: mouth in [place] the Medical morning Branch and 300 mg in the evening. TRADJENTA 5 2021-08 Yes 1{tbl} Take 1 Un trudy mg tablet 1-26 tablet by ity o f 00:00: mouth [place] 00 daily. [facility] PARoxetine 2021-08 Yes 10mg Take 10 mg U nivers 20 mg 1-26 by mouth ity of tablet 00:00: in the [place] [address] morning. [facility] Branch atorvastati 2021-08 Yes 10mg Take 10 mg [facility] n 10 mg 1-26 by mouth ity of tablet 00:00: at [place] [address] bedtime. [facility] budesonide 2021-08 Yes .5mg Inhale 0.5 U nivers 0.5 mg/2 mL 1-26 mg as ity of nebulizer 00:00: needed. [place] solution 00 [facility] Branch gabapentin 2021-08 Yes 300mg Take 300 Un trudy 300 mg 1-26 mg by ity of capsule 00:00: mouth in [place] 00 the Medical morning Branch and 300 mg in the evening. TRADJENTA 5 2021-08 Yes 1{tbl} Take 1 Un trudy mg tablet 1-26 tablet by ity o f 00:00: mouth [place] 00 daily. [facility] PARoxetine 2021-08 Yes 10mg Take 10 mg U nivers 20 mg 1-26 by mouth ity of tablet 00:00: in the [place] 00 morning. [facility] atorvastati 2021-08 Yes 10mg Take 10 mg [facility] n 10 mg 1-26 by mouth ity of tablet 00:00: at [place] [address] bedtime. [facility] budesonide 2021-08 Yes .5mg Inhale 0.5 U nivers 0.5 mg/2 mL 1-26 mg as ity of nebulizer 00:00: needed. [place] solution 00 [facility] gabapentin 2021-08 Yes 300mg Take 300 Un trudy 300 mg 1-26 mg by ity of capsule 00:00: mouth in [place] 00 the Medical morning Branch and 300 mg in the evening. TRADJENTA 5 2021-08 Yes 1{tbl} Take 1 Un trudy mg tablet 1-26 tablet by ity o f 00:00: mouth [place] 00 daily. [facility] PARoxetine 2021-08 Yes 10mg Take 10 mg U nivers 20 mg 1-26 by mouth ity of tablet 00:00: in the [place] 00 morning. [facility] atorvastati 2021-08 Yes 10mg Take 10 mg [facility] n 10 mg 1-26 by mouth ity of tablet 00:00: at [place] [address] bedtime. [facility] budesonide 2021-08 Yes .5mg Inhale 0.5 U nivers 0.5 mg/2 mL 1-26 mg as ity of nebulizer 00:00: needed. [place] solution 00 [facility] gabapentin 2021-08 Yes 300mg Take 300 Un trudy 300 mg 1-26 mg by ity of capsule 00:00: mouth in [place] 00 the Medical morning Branch and 300 mg in the evening. TRADJENTA 5 2021-08 Yes 1{tbl} Take 1 Un trudy mg tablet 1-26 tablet by ity o f 00:00: mouth [place] 00 daily. [facility] PARoxetine 2021-08 Yes 10mg Take 10 mg U nivers 20 mg 1-26 by mouth ity of tablet 00:00: in the [place] 00 morning. [facility] atorvastati 2021-08 Yes 10mg Take 10 mg [facility] n 10 mg 1-26 by mouth ity of tablet 00:00: at [place] [address] bedtime. [facility] budesonide 2021-08 Yes .5mg Inhale 0.5 U nivers 0.5 mg/2 mL 1-26 mg as ity of nebulizer 00:00: needed. [place] solution 00 [facility] gabapentin 2021-08 Yes 300mg Take 300 Un trudy 300 mg 1-26 mg by ity of capsule 00:00: mouth in [place] 00 the Medical morning Branch and 300 mg in the evening. TRADJENTA 5 2021-08 Yes 1{tbl} Take 1 Un trudy mg tablet 1-26 tablet by ity o f 00:00: mouth [place] 00 daily. [facility] PARoxetine 2021-08 Yes 10mg Take 10 mg U nivers 20 mg 1-26 by mouth ity of tablet 00:00: in the [place] [address] morning. [facility] Branch atorvastati 2021-08 Yes 10mg Take 10 mg [facility] n 10 mg 1-26 by mouth ity of tablet 00:00: at [place] [address] bedtime. [facility] budesonide 2021-08 Yes .5mg Inhale 0.5 U nivers 0.5 mg/2 mL 1-26 mg as ity of nebulizer 00:00: needed. [place] solution 00 [facility] gabapentin 2021-08 Yes 300mg Take 300 Un trudy 300 mg 1-26 mg by ity of capsule 00:00: mouth in [place] the Medical morning Branch and 300 mg in the evening. TRADJENTA 5 2021-08 Yes 1{tbl} Take 1 Un trudy mg tablet 1-26 tablet by ity o f 00:00: mouth [place] daily. [facility] PARoxetine 2021-08 Yes 10mg Take 10 mg U nivers 20 mg 1-26 by mouth ity of tablet 00:00: in the [place] morning. [facility] atorvastati 2021-08 Yes 10mg Take 10 mg [facility] n 10 mg 1-26 by mouth ity of tablet 00:00: at [place] [address] bedtime. [facility] budesonide 2021-08 Yes .5mg Inhale 0.5 U nivers 0.5 mg/2 mL 1-26 mg as ity of nebulizer 00:00: needed. [place] solution 00 [facility] gabapentin 2021-08 Yes 300mg Take 300 Un trudy 300 mg 1-26 mg by ity of capsule 00:00: mouth in [place] 00 the Medical morning Branch and 300 mg in the evening. TRADJENTA 5 2021-08 Yes 1{tbl} Take 1 Un trudy mg tablet 1-26 tablet by ity o f 00:00: mouth [place] 00 daily. [facility] PARoxetine 2021-08 Yes 10mg Take 10 mg U nivers 20 mg 1-26 by mouth ity of tablet 00:00: in the [place] 00 morning. [facility] atorvastati 2021-08 Yes 10mg Take 10 mg [facility] n 10 mg 1-26 by mouth ity of tablet 00:00: at [place] [address] bedtime. [facility] budesonide 2021-08 Yes .5mg Inhale 0.5 U nivers 0.5 mg/2 mL 1-26 mg as ity of nebulizer 00:00: needed. [place] [facility] 00 [facility] gabapentin 2021-08 Yes 300mg Take 300 Un trudy 300 mg 1-26 mg by ity of capsule 00:00: mouth in [place] 00 the Medical morning Branch and 300 mg in the evening. TRADJENTA 5 2021-08 Yes 1{tbl} Take 1 Un trudy mg tablet 1-26 tablet by ity o f 00:00: mouth [place] 00 daily. [facility] PARoxetine 2021-08 Yes 10mg Take 10 mg U nivers 20 mg 1-26 by mouth ity of tablet 00:00: in the [place] morning. [facility] atorvastati 2021-08 Yes 10mg Take 10 mg [facility] n 10 mg 1-26 by mouth ity of tablet 00:00: at [place] [address] bedtime. [facility] budesonide 2021-08 Yes .5mg Inhale 0.5 U nivers 0.5 mg/2 mL 1-26 mg as ity of nebulizer 00:00: needed. [place] solution 00 [facility] gabapentin 2021-08 Yes 300mg Take 300 Un trudy 300 mg 1-26 mg by ity of capsule 00:00: mouth in [place] 00 the Medical morning Branch and 300 mg in the evening. TRADJENTA 5 2021-08 Yes 1{tbl} Take 1 Un trudy mg tablet 1-26 tablet by ity o f 00:00: mouth [place] 00 daily. [facility] PARoxetine 2021-08 Yes 10mg Take 10 mg U nivers 20 mg 1-26 by mouth ity of tablet 00:00: in the [place] morning. [facility] atorvastati 2021-08 Yes 10mg Take 10 mg [facility] n 10 mg 1-26 by mouth ity of tablet 00:00: at [place] [address] bedtime. [facility] budesonide 2021-08 Yes .5mg Inhale 0.5 U nivers 0.5 mg/2 mL 1-26 mg as ity of nebulizer 00:00: needed. [place] solution 00 [facility] gabapentin 2021-08 Yes 300mg Take 300 Un trudy 300 mg 1-26 mg by ity of capsule 00:00: mouth in [place] 00 the Medical morning Branch and 300 mg in the evening. TRADJENTA 5 2021-08 Yes 1{tbl} Take 1 Un trudy mg tablet 1-26 tablet by ity o f 00:00: mouth [place] 00 daily. [facility] PARoxetine 2021-08 Yes 10mg Take 10 mg U nivers 20 mg 1-26 by mouth ity of tablet 00:00: in the [place] [address] morning. [facility] Branch atorvastati 2021-08 Yes 10mg Take 10 mg [facility] n 10 mg 1-26 by mouth ity of tablet 00:00: at [place] [address] bedtime. [facility] Branch budesonide 2021-08 Yes .5mg Inhale 0.5 U nivers 0.5 mg/2 mL 1-26 mg as ity of nebulizer 00:00: needed. [place] solution 00 [facility] gabapentin 2021-08 Yes 300mg Take 300 Un trudy 300 mg 1-26 mg by ity of capsule 00:00: mouth in [place] 00 the Medical morning Branch and 300 mg in the evening. TRADJENTA 5 2021-08 Yes 1{tbl} Take 1 Un trudy mg tablet 1-26 tablet by ity o f 00:00: mouth [place] 00 daily. [facility] PARoxetine 2021-08 Yes 10mg Take 10 mg U nivers 20 mg 1-26 by mouth ity of tablet 00:00: in the [place] [address] morning. [facility] Branch atorvastati 2021-08 Yes 10mg Take 10 mg [facility] n 10 mg 1-26 by mouth ity of tablet 00:00: at [place] [address] bedtime. [facility] Branch budesonide 2021-08 Yes .5mg Inhale 0.5 U nivers 0.5 mg/2 mL 1-26 mg as ity of nebulizer 00:00: needed. [place] solution 00 [facility] Branch tiotropium 2021-08 Yes [facility] (SPIRIVA 1-15 with ity of WITH 17:06: [employer] [place] [facility]) 23 18 mcg and Me dical 18 mcg inhalation Branch inhalation capsules hydrOXYzine 2021-08 Yes as needed. [facility] 50 mg 1-15 ity of tablet 17:06: 23 Medical Branch EPINEPHrine 2021-08 Yes epinephrin [facility] 0.3 mg/0.3 1-15 e 0.3 ity of mL 17:06: mg/0.3 mL [place] injection 23 injection, Medi marily auto-injec Branch tor tiotropium 2021-08 Yes [facility] (SPIRIVA 1-15 with ity of WITH 17:06: [employer] [place] HAND[facility]) 23 18 mcg and Me dical 18 mcg inhalation Branch inhalation capsules hydrOXYzine 2021-08 Yes as needed. [facility] 50 mg 1-15 ity of tablet 17:06: 23 Medical Branch EPINEPHrine 2021-08 Yes epinephrin [facility] 0.3 mg/0.3 1-15 e 0.3 ity of mL 17:06: mg/0.3 mL [place] injection 23 injection, Medi marily auto-injec Branch tor tiotropium 2021-08 Yes [facility] (SPIRIVA 1-15 with ity of WITH 17:06: [employer] [place] HAND[facility]) 23 18 mcg and Me dical 18 mcg inhalation Branch inhalation capsules hydrOXYzine 2021-08 Yes as needed. [facility] 50 mg 1-15 ity of tablet 17:06: 23 Medical Branch EPINEPHrine 2021-08 Yes epinephrin [facility] 0.3 mg/0.3 1-15 e 0.3 ity of mL 17:06: mg/0.3 mL [place] injection 23 injection, Medi marily auto-injec Branch tor tiotropium 2021-08 Yes [facility] (SPIRIVA 1-15 with ity of WITH 17:06: [employer] [place] HAND[facility]) 23 18 mcg and Me dical 18 mcg inhalation Branch inhalation capsules hydrOXYzine 2021-08 Yes as needed. [facility] 50 mg 1-15 ity of tablet 17:06: 23 Medical Branch EPINEPHrine 2021-08 Yes epinephrin [facility] 0.3 mg/0.3 1-15 e 0.3 ity of mL 17:06: mg/0.3 mL [place] injection 23 injection, Medi marily auto-injec Branch tor tiotropium 2021-08 Yes [facility] (SPIRIVA 1-15 with ity of WITH 17:06: [employer] [place] HAND[facility]) 23 18 mcg and Me dical 18 mcg inhalation Branch inhalation capsules hydrOXYzine 2021-08 Yes as needed. [facility] 50 mg 1-15 ity of tablet 17:06: [place] 23 [facility] Branch EPINEPHrine 2021-08 Yes epinephrin [facility] 0.3 mg/0.3 1-15 e 0.3 ity of mL 17:06: mg/0.3 mL [place] injection 23 injection, Medi marily auto-injec Branch tor tiotropium 2021-08 Yes [facility] (SPIRIVA 1-15 with ity of WITH 17:06: [employer] [place] HAND[facility]) 23 18 mcg and Me dical 18 mcg inhalation Branch inhalation capsules hydrOXYzine 2021-08 Yes as needed. [facility] 50 mg 1-15 ity of tablet 17:06: 23 Medical Branch EPINEPHrine 2021-08 Yes epinephrin [facility] 0.3 mg/0.3 1-15 e 0.3 ity of mL 17:06: mg/0.3 mL [place] injection 23 injection, Medi marily auto-injec Branch tor tiotropium 2021-08 Yes [facility] (SPIRIVA 1-15 with ity of WITH 17:06: [employer] [place] HAND[facility]) 23 18 mcg and Me dical 18 mcg inhalation Branch inhalation capsules hydrOXYzine 2021-08 Yes as needed. [facility] 50 mg 1-15 ity of tablet 17:06: [place] 23 [facility] Branch EPINEPHrine 2021-08 Yes epinephrin [facility] 0.3 mg/0.3 1-15 e 0.3 ity of mL 17:06: mg/0.3 mL [place] injection 23 injection, Medi marily auto-injec Branch tor tiotropium 2021-08 Yes [facility] (SPIRIVA 1-15 with ity of WITH 17:06: [employer] [place] HAND[facility]) 23 18 mcg and Me dical 18 mcg inhalation Branch inhalation capsules hydrOXYzine 2021-08 Yes as needed. [facility] 50 mg 1-15 ity of tablet 17:06: [place] 23 [facility] Branch EPINEPHrine 2021-08 Yes epinephrin [facility] 0.3 mg/0.3 1-15 e 0.3 ity of mL 17:06: mg/0.3 mL [place] injection 23 injection, Medi marily auto-injec Branch tor tiotropium 2021-08 Yes [facility] (SPIRIVA 1-15 with ity of WITH 17:06: [employer] [place] HAND[facility]) 23 18 mcg and Me dical 18 mcg inhalation Branch inhalation capsules hydrOXYzine 2021-08 Yes as needed. [facility] 50 mg 1-15 ity of tablet 17:06: [place] 23 [facility] Branch EPINEPHrine 2021-08 Yes epinephrin [facility] 0.3 mg/0.3 1-15 e 0.3 ity of mL 17:06: mg/0.3 mL [place] injection 23 injection, Medi marily auto-injec Branch tor tiotropium 2021-08 Yes [facility] (SPIRIVA 1-15 with ity of WITH 17:06: [employer] [place] HAND[facility]) 23 18 mcg and Me dical 18 mcg inhalation Branch inhalation capsules hydrOXYzine 2021-08 Yes as needed. [facility] 50 mg 1-15 ity of tablet 17:06: [place] 23 [facility] Branch EPINEPHrine 2021-08 Yes epinephrin [facility] 0.3 mg/0.3 1-15 e 0.3 ity of mL 17:06: mg/0.3 mL [place] injection 23 injection, Medi marily auto-injec Branch tor tiotropium 2021-08 Yes [facility] (SPIRIVA 1-15 with ity of WITH 17:06: [employer] [place] HAND[facility]) 23 18 mcg and Me dical 18 mcg inhalation Branch inhalation capsules hydrOXYzine 2021-08 Yes as needed. [facility] 50 mg 1-15 ity of tablet 17:06: [place] 23 [facility] Branch EPINEPHrine 2021-08 Yes epinephrin [facility] 0.3 mg/0.3 1-15 e 0.3 ity of mL 17:06: mg/0.3 mL [place] injection 23 injection, Medi marily auto-injec Branch tor tiotropium 2021-08 Yes [facility] (SPIRIVA 1-15 with ity of WITH 17:06: [employer] [place] HAND[facility]) 23 18 mcg and Me dical 18 mcg inhalation Branch inhalation capsules hydrOXYzine 2021-08 Yes as needed. [facility] 50 mg 1-15 ity of tablet 17:06: [place] 23 [facility] Branch EPINEPHrine 2021-08 Yes epinephrin [facility] 0.3 mg/0.3 1-15 e 0.3 ity of mL 17:06: mg/0.3 mL [place] injection 23 injection, Medi marily auto-injec Branch tor tiotropium 2021-08 Yes [facility] (SPIRIVA 1-15 with ity of WITH 17:06: [employer] [place] HAND[facility]) 23 18 mcg and Me dical 18 mcg inhalation Branch inhalation capsules hydrOXYzine 2021-08 Yes as needed. [facility] 50 mg 1-15 ity of tablet 17:06: 23 Medical Branch EPINEPHrine 2021-08 Yes epinephrin [facility] 0.3 mg/0.3 1-15 e 0.3 ity of mL 17:06: mg/0.3 mL [place] injection 23 injection, Medi marily auto-injec Branch tor tiotropium 2021-08 Yes [facility] (SPIRIVA 1-15 with ity of WITH 17:06: [employer] [place] HAND[facility]) 23 18 mcg and Me dical 18 mcg inhalation Branch inhalation capsules hydrOXYzine 2021-08 Yes as needed. [facility] 50 mg 1-15 ity of tablet 17:06: 23 Medical Branch EPINEPHrine 2021-08 Yes epinephrin [facility] 0.3 mg/0.3 1-15 e 0.3 ity of mL 17:06: mg/0.3 mL [place] injection 23 injection, Medi marily auto-injec Branch tor tiotropium 2021-08 Yes [facility] (SPIRIVA 1-15 with ity of WITH 17:06: [employer] [place] HANDIHAL[facility]) 23 18 mcg and Me dical 18 mcg inhalation Branch inhalation capsules hydrOXYzine 2021-08 Yes as needed. [facility] 50 mg 1-15 ity of tablet 17:06: 23 Medical Branch EPINEPHrine 2021-08 Yes epinephrin [facility] 0.3 mg/0.3 1-15 e 0.3 ity of mL 17:06: mg/0.3 mL [place] injection 23 injection, Medi marily auto-injec Branch tor tiotropium 2021-08 Yes [facility] (SPIRIVA 1-15 with ity of WITH 17:06: [facility] [place] HANDIHALER) 23 18 mcg and Me dical 18 mcg inhalation Branch inhalation capsules hydrOXYzine 2021-08 Yes as needed. [facility] 50 mg 1-15 ity of tablet 17:06: 23 Medical Branch EPINEPHrine 2021-08 Yes epinephrin [facility] 0.3 mg/0.3 1-15 e 0.3 ity of mL 17:06: mg/0.3 mL [place] injection 23 injection, Medi marily auto-injec Branch tor tiotropium 2021-08 Yes [facility] (SPIRIVA 1-15 with ity of WITH 17:06: HandiHaler [place] HANDIHALER) 23 18 mcg and Me dical 18 mcg inhalation Branch inhalation capsules hydrOXYzine 2021-08 Yes as needed. 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 [facility] 50 mg 1-15 ity of tablet 17:06: 23 Medical Branch EPINEPHrine 2021-08 Yes epinephrin [facility] 0.3 mg/0.3 1-15 e 0.3 ity of mL 17:06: mg/0.3 mL [place] injection 23 injection, [facility] auto-injec Branch tor predniSONE 2021-08 Yes 10mg 10 mg, Unive rs (DELTASONE) 1-12 Oral, ity of tablet 10 17:15: DAILY, [place] mg 00 First dose Medical on Sat [place] 06/17/22 at 1115, Until Discontinu ed, Routine predniSONE 2021-08 Yes 10mg 10 mg, Unive rs (DELTASONE) 1-12 Oral, ity of tablet 10 17:15: DAILY, [place] mg 00 First dose Medical on Sat [place] 06/17/22 at 1115, Until Discontinu ed, Routine predniSONE 2021-08 Yes [id number] 10mg Take 1 [facility] 10 mg 1-12 tablet by ity of tablet 00:00: mouth in [place] 00 the Medical morning. Branch predniSONE 2021-08 Yes [id number] 10mg Take 1 [facility] 10 mg 1-12 tablet by ity of tablet 00:00: mouth in [place] 00 the Medical morning. Branch predniSONE 2021-08 Yes [id number] 10mg Take 1 [facility] 10 mg 1-12 tablet by ity of tablet 00:00: mouth in [place] 00 the Medical morning. Branch predniSONE 2021-08 Yes [id number] 10mg Take 1 [facility] 10 mg 1-12 tablet by ity of tablet 00:00: mouth in [place] 00 the Medical morning. Branch predniSONE 2021-08 Yes [id number] 10mg Take 1 [facility] 10 mg 1-12 tablet by ity of tablet 00:00: mouth in [place] 00 the Medical morning. Branch predniSONE 2021-08 Yes [id number] 10mg Take 1 [facility] 10 mg 1-12 tablet by ity of tablet 00:00: mouth in [place] 00 the Medical morning. Branch predniSONE 2021-08 Yes [id number] 10mg Take 1 [facility] 10 mg 1-12 tablet by ity of tablet 00:00: mouth in [place] 00 the Medical morning. Branch predniSONE 2021-08 Yes [id number] 10mg Take 1 [facility] 10 mg 1-12 tablet by ity of tablet 00:00: mouth in [place] 00 the Medical morning. Branch predniSONE 2021-08 Yes [id number] 10mg Take 1 [facility] 10 mg 1-12 tablet by ity of tablet 00:00: mouth in [place] 00 the Medical morning. Branch predniSONE 2021-08 Yes [id number] 10mg Take 1 [facility] 10 mg 1-12 tablet by ity of tablet 00:00: mouth in [place] 00 the Medical morning. Branch predniSONE 2021-08 Yes [id number] 10mg Take 1 [facility] 10 mg 1-12 tablet by ity of tablet 00:00: mouth in [place] 00 the Medical morning. Branch predniSONE 2021- Yes [id number] 10mg Take 1 [facility] 10 mg 1-12 tablet by ity of tablet 00:00: mouth in [place] 00 the Medical morning. Branch predniSONE 2021- Yes [id number] 10mg Take 1 [facility] 10 mg 1-12 tablet by ity of tablet 00:00: mouth in [place] 00 the Medical morning. Branch predniSONE 2021- Yes [id number] 10mg Take 1 [facility] 10 mg 1-12 tablet by ity of tablet 00:00: mouth in [place] 00 the Medical morning. Branch predniSONE 2021- Yes [id number] 10mg Take 1 [facility] 10 mg 1-12 tablet by ity of tablet 00:00: mouth in [place] 00 the Medical morning. Branch predniSONE 2- Yes [id number] 10mg Take 1 [facility] 10 mg 1-12 tablet by ity of tablet 00:00: mouth in [place] 00 the Medical morning. Branch predniSONE 2021- Yes [id number] 10mg Take 1 [facility] 10 mg 1-12 tablet by ity of tablet 00:00: mouth in [place] 00 the Medical morning. Branch predniSONE 2021- Yes [id number] 10mg Take 1 [facility] 10 mg 1-12 tablet by ity of tablet 00:00: mouth in [place] 00 the Medical morning. Branch predniSONE 2021- Yes [id number] 10mg Take 1 [facility] 10 mg 1-12 tablet by ity of tablet 00:00: mouth in [place] 00 the Medical morning. Branch predniSONE 2-1 Yes [id number] 10mg Take 1 [facility] 10 mg 1-12 tablet by ity of tablet 00:00: mouth in [place] 00 the Medical morning. Branch predniSONE 2-1 Yes [id number] 10mg Take 1 [facility] 10 mg 1-12 tablet by ity of tablet 00:00: mouth in [place] 00 the Medical morning. Branch predniSONE 2-1 Yes [id number] 10mg Take 1 [facility] 10 mg 1-12 tablet by ity of tablet 00:00: mouth in [place] 00 the Medical morning. Branch predniSONE 2022-1 Yes [id number] 10mg Take 1 [facility] 10 mg 1-12 tablet by ity of tablet 00:00: mouth in [place] 00 the Medical morning. Branch predniSONE 2022-1 Yes [id number] 10mg Take 1 [facility] 10 mg 1-12 tablet by ity of tablet 00:00: mouth in [place] 00 the Medical morning. Branch predniSONE 2021- Yes [id number] 10mg Take 1 [facility] 10 mg 1-12 tablet by ity of tablet 00:00: mouth in [place] 00 the Medical morning. Branch predniSONE 2021- Yes [id number] 10mg Take 1 [facility] 10 mg 1-12 tablet by ity of tablet 00:00: mouth in [place] 00 the Medical morning. Branch predniSONE 2021- Yes [id number] 10mg Take 1 [facility] 10 mg 1-12 tablet by ity of tablet 00:00: mouth in [place] 00 the Medical morning. Branch predniSONE 2021- Yes [id number] 10mg Take 1 [facility] 10 mg 1-12 tablet by ity of tablet 00:00: mouth in [place] 00 the Medical morning. Branch predniSONE 2021- Yes [id number] 10mg Take 1 [facility] 10 mg 1-12 tablet by ity of tablet 00:00: mouth in [place] 00 the Medical morning. Branch predniSONE 2021- Yes [id number] 10mg Take 1 [facility] 10 mg 1-12 tablet by ity of tablet 00:00: mouth in [place] 00 the Medical morning. Branch predniSONE 2021- Yes [id number] 10mg Take 1 [facility] 10 mg 1-12 tablet by ity of tablet 00:00: mouth in [place] 00 the Medical morning. Branch predniSONE 2021- Yes [id number] 10mg Take 1 [facility] 10 mg 1-12 tablet by ity of tablet 00:00: mouth in [place] 00 the Medical morning. Branch predniSONE 2021- Yes [id number] 10mg Take 1 [facility] 10 mg 1-12 tablet by ity of tablet 00:00: mouth in [place] 00 the Medical morning. Branch predniSONE 2021- Yes [id number] 10mg Take 1 [facility] 10 mg 1-12 tablet by ity of tablet 00:00: mouth in [place] 00 the Medical morning. Branch predniSONE 2021-1 Yes [id number] 10mg Take 1 [facility] 10 mg 1-12 tablet by ity of tablet 00:00: mouth in [place] 00 the Medical morning. Branch predniSONE 2-1 Yes [id number] 10mg Take 1 [facility] 10 mg 1-12 tablet by ity of tablet 00:00: mouth in [place] 00 the Medical morning. Branch predniSONE 2022-1 Yes [id number] 10mg Take 1 [facility] 10 mg 1-12 tablet by ity of tablet 00:00: mouth in [place] 00 the Medical morning. Branch predniSONE 2-1 Yes [id number] 10mg Take 1 [facility] 10 mg 1-12 tablet by ity of tablet 00:00: mouth in [place] 00 the Medical morning. Branch predniSONE 2022-1 Yes [id number] 10mg Take 1 [facility] 10 mg 1-12 tablet by ity of tablet 00:00: mouth in [place] 00 the Medical morning. Branch predniSONE 2022-1 Yes [id number] 10mg Take 1 [facility] 10 mg 1-12 tablet by ity of tablet 00:00: mouth in [place] 00 the Medical morning. Branch predniSONE 2022-1 Yes [id number] 10mg Take 1 [facility] 10 mg 1-12 tablet by ity of tablet 00:00: mouth in [place] 00 the Medical morning. Branch predniSONE 2-1 Yes [id number] 10mg Take 1 [facility] 10 mg 1-12 tablet by ity of tablet 00:00: mouth in [place] 00 the Medical morning. Branch predniSONE 2-1 Yes [id number] 10mg Take 1 [facility] 10 mg 1-12 tablet by ity of tablet 00:00: mouth in [place] 00 the Medical morning. Branch predniSONE 2-1 Yes [id number] 10mg Take 1 [facility] 10 mg 1-12 tablet by ity of tablet 00:00: mouth in [place] 00 the Medical morning. Branch predniSONE 2-1 Yes [id number] 10mg Take 1 [facility] 10 mg 1-12 tablet by ity of tablet 00:00: mouth in [place] 00 the Medical morning. Branch predniSONE 2022-1 Yes [id number] 10mg Take 1 [facility] 10 mg 1-12 tablet by ity of tablet 00:00: mouth in [place] 00 the Medical morning. Branch predniSONE 2022-1 Yes [id number] 10mg Take 1 [facility] 10 mg 1-12 tablet by ity of tablet 00:00: mouth in [place] 00 the Medical morning. Branch predniSONE 2022-1 Yes [id number] 10mg Take 1 [facility] 10 mg 1-12 tablet by ity of tablet 00:00: mouth in [place] 00 the Medical morning. Branch predniSONE 2022-1 Yes [id number] 10mg Take 1 [facility] 10 mg 1-12 tablet by ity of tablet 00:00: mouth in [place] 00 the Medical morning. Branch predniSONE 2-1 Yes [id number] 10mg Take 1 [facility] 10 mg 1-12 tablet by ity of tablet 00:00: mouth in [place] 00 the Medical morning. Branch predniSONE 2-1 Yes [id number] 10mg Take 1 [facility] 10 mg 1-12 tablet by ity of tablet 00:00: mouth in [place] 00 the Medical morning. Branch predniSONE 2022-1 Yes [id number] 10mg Take 1 [facility] 10 mg 1-12 tablet by ity of tablet 00:00: mouth in [place] 00 the Medical morning. Branch predniSONE 2022-1 Yes [id number] 10mg Take 1 [facility] 10 mg 1-12 tablet by ity of tablet 00:00: mouth in [place] 00 the Medical morning. Branch predniSONE 2-1 Yes [id number] 10mg Take 1 [facility] 10 mg 1-12 tablet by ity of tablet 00:00: mouth in [place] 00 the Medical morning. Branch predniSONE 2-1 Yes [id number] 10mg Take 1 [facility] 10 mg 1-12 tablet by ity of tablet 00:00: mouth in [place] 00 the Medical morning. Branch predniSONE 2021-1 Yes [id number] 10mg Take 1 [facility] 10 mg 1-12 tablet by ity of tablet 00:00: mouth in [place] 00 the Medical morning. Branch predniSONE 2-1 Yes [id number] 10mg Take 1 [facility] 10 mg 1-12 tablet by ity of tablet 00:00: mouth in [place] 00 the Medical morning. Branch predniSONE 2-1 Yes [id number] 10mg Take 1 [facility] 10 mg 1-12 tablet by ity of tablet 00:00: mouth in [place] 00 the Medical morning. Branch predniSONE 2022-1 Yes [id number] 10mg Take 1 [facility] 10 mg 1-12 tablet by ity of tablet 00:00: mouth in [place] 00 the Medical morning. Branch predniSONE 2022-1 Yes [id number] 10mg Take 1 [facility] 10 mg 1-12 tablet by ity of tablet 00:00: mouth in [place] 00 the Medical morning. Branch predniSONE 2022-1 Yes [id number] 10mg Take 1 [facility] 10 mg 1-12 tablet by ity of tablet 00:00: mouth in [place] 00 the Medical morning. Branch predniSONE 2022-1 Yes [id number] 10mg Take 1 [facility] 10 mg 1-12 tablet by ity of tablet 00:00: mouth in [place] 00 the Medical morning. Branch predniSONE 2021- Yes [id number] 10mg Take 1 [facility] 10 mg 1-12 tablet by ity of tablet 00:00: mouth in [place] 00 the Medical morning. Branch predniSONE 2021- Yes [id number] 10mg Take 1 [facility] 10 mg 1-12 tablet by ity of tablet 00:00: mouth in [place] 00 the Medical morning. Branch predniSONE 2021- Yes [id number] 10mg Take 1 [facility] 10 mg 1-12 tablet by ity of tablet 00:00: mouth in [place] 00 the Medical morning. Branch predniSONE 2021- Yes [id number] 10mg Take 1 [facility] 10 mg 1-12 tablet by ity of tablet 00:00: mouth in [place] 00 the Medical morning. Branch predniSONE 2021- Yes [id number] 10mg Take 1 [facility] 10 mg 1-12 tablet by ity of tablet 00:00: mouth in [place] 00 the Medical morning. Branch predniSONE 2021- Yes [id number] 10mg Take 1 [facility] 10 mg 1-12 tablet by ity of tablet 00:00: mouth in [place] 00 the Medical morning. Branch predniSONE 2021- Yes [id number] 10mg Take 1 [facility] 10 mg 1-12 tablet by ity of tablet 00:00: mouth in [place] 00 the Medical morning. Branch predniSONE 2021- Yes [id number] 10mg Take 1 [facility] 10 mg 1-12 tablet by ity of tablet 00:00: mouth in [place] 00 the Medical morning. Branch predniSONE 2021- Yes [id number] 10mg Take 1 [facility] 10 mg 1-12 tablet by ity of tablet 00:00: mouth in [place] 00 the Medical morning. Branch predniSONE 2021- Yes [id number] 10mg Take 1 [facility] 10 mg 1-12 tablet by ity of tablet 00:00: mouth in [place] 00 the Medical morning. Branch predniSONE 2021- Yes [id number] 10mg Take 1 [facility] 10 mg 1-12 tablet by ity of tablet 00:00: mouth in [place] 00 the Medical morning. Branch predniSONE 2021- Yes [id number] 10mg Take 1 [facility] 10 mg 1-12 tablet by ity of tablet 00:00: mouth in [place] 00 the Medical morning. Branch predniSONE 2021- 2023- No [id number] 10mg Take 1 [facility] 10 mg 1-12 02-28 tablet by ity of tablet 00:00: 00:00 mouth in [place] 00 :00 the Medical morning. Branch doxycycline 2021-08- No [id number] 100mg 100 mg, Univers hyclate 08-17 Oral, ity of (Vibramycin 00:00: 23:59 Q12HA2, [address] [place] [address] ) capsule 00 :00 doses, Medical 100 mg First dose Branch on Sun06/16/22 at 1800, Last dose on Sun06/23/22 at 0600, Routine
Reason for Anti-Infec tive: Surgical Prophylaxi s
Surgi marily Prophylaxi s: Cardiothor acic
Du ration of therapy: within 24 hours of surgery doxycycline 2021-08- No [id number] 100mg 100 mg, Univers hyclate 08-17 Oral, ity of (Vibramycin 00:00: 23:59 Q12HA, [address] [place] [address] ) capsule 00 :00 doses, Medical 100 mg First dose Branch on Sun06/16/22 at 1800, Last dose on Sun06/23/22 at 0600, Routine
Reason for Anti-Infec tive: Surgical Prophylaxi s
Surgi marily Prophylaxi s: Cardiothor acic
Du ration of therapy: within 24 hours of surgery KCL 2021-08 Yes 20meq 20 mEq, Univers (KLOR-CON 1-11 Oral, ity of M20) tablet 22:30: [place]ILY, [place] 20 m[place] 00 First dose Medical (after Branch last modificati on) on Sun06/16/22 at 1630, Until Discontinu ed, Routine KCL 2021-08 Yes 20meq 20 mEq, Univers (KLOR-CON 1-11 Oral, ity of M20) tablet 22:30: DAILY, [place] 20 mEq 00 First dose Medical (after Branch last modificati on) on Sun06/16/22 at 1630, Until Discontinu ed, Routine enoxaparin 2021-08 Yes 40mg 40 mg, Unive rs (LOVENOX) -11 Subcutaneo ity of injection 15:00: [place], [place]ILY, [place] 40 mg 00 First dose Medical on Sun06/16/22 at 0900, Until Discontinu ed, Routine tiotropium 2021-08 Yes [id number] 18ug 18 mcg, Univers (SPIRIVA) 08-16 Inhalation ity of inhalation 15:00: , DAILY, [place] 18 mcg 00 First dose Medical on Sun Branch 06/16/22 at 0900, Until Discontinu ed, Routine montelukast 2021-08 Yes [id number] 10mg 10 mg, Univers (SINGULAIR) 11 Oral, ity of tablet 10 15:00: DAILY, [place] mg 00 First dose Medical on Sun Branch 06/16/22 at 0900, Until Discontinu ed, Routine ezetimibe 2021-08 Yes [id number] 10mg 10 mg, U nivers (ZETIA) 08-16 Oral, ity of tablet 10 15:00: DAILY, [place] mg 00 First dose Medical on Sun Branch 06/16/22 at 0900, Until Discontinu ed, Routine empaglifloz 2021-08 Yes [id number] 10mg 10 mg, Univers in 08-16 Oral, ity of (JARDIANCE) 15:00: DAILY, [place] tablet 10 00 First dose Medi marily mg on Sun Branch 06/16/22 at 0900, Until Discontinu ed, Routine
Is this a home medication ? Yes
Has this patient brought their own medication ? No
[facility] will dispense the medication from inpatient. Pharmacy will dispense the medication from inpatient.
Inpati ent ordering of this medication is not allowed unless the patient is maintained on this medication at home, and home supply is unavailabl e. Does this order meet the criteria for inpatient ordering? Yes enoxaparin 2021-08 Yes 40mg 40 mg, Unive rs (LOVENOX) 08-16 Subcutaneo ity of injection 15:00: [place], DAILY, [place] 40 mg 00 First dose Medical on Sun Branch 06/16/22 at 0900, Until Discontinu ed, Routine tiotropium 2021-08 Yes [id number] 18ug 18 mcg, Univers (SPIRIVA) 08-16 Inhalation ity of inhalation 15:00: , DAILY, [place] 18 mcg 00 First dose Medical on Sun Branch 06/16/22 at 0900, Until Discontinu ed, Routine montelukast 2021-08 Yes [id number] 10mg 10 mg, Univers (SINGULAIR) 11 Oral, ity of tablet 10 15:00: DAILY, [place] mg 00 First dose Medical on Sun06/16/22 at 0900, Until Discontinu ed, Routine ezetimibe 2021-08 Yes [id number] 10mg 10 mg, U nivers (ZETIA) 11 Oral, ity of tablet 10 15:00: DAILY, [place] mg 00 First dose Medical on Sun06/16/22 at 0900, Until Discontinu ed, Routine empaglifloz 2021-08 Yes [id number] 10mg 10 mg, Univers in 08-16 Oral, ity of (JARDIANCE) 15:00: DAILY, [place] tablet 10 00 First dose Medi marily mg on Sun06/16/22 at 0900, Until Discontinu ed, Routine
Is this a home medication ? Yes
Has this patient brought their own medication ? No
[facility] will dispense the medication from inpatient. Pharmacy will dispense the medication from inpatient.
Inpati ent ordering of this medication is not allowed unless the patient is maintained on this medication at home, and home supply is unavailabl e. Does this order meet the criteria for inpatient ordering? 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
Reas on for Anti-Infec tive: Surgical Prophylaxi s
Surgi marily Prophylaxi s: Cardiothor acic
Du ration of therapy: within 24 hours of surgery vancomycin 2021-08- No 1000mg 1,000 mg, Univers (VANCOCIN) 08-16 IV ity of 1,000 mg in 10:30: 00:[facility] [place] NaCl 0.9% 00 :00 Q12H ABX, Medic al (NS) 250 mL 2 doses, Bran ch VIAL-presentation designer dose IV on Sun [place] 06/16/22 at 0430, Last dose on Sun06/16/22 at 1630, Administer over 60 Minutes, 250 mL
Reas on for Anti-Infec tive: Surgical Prophylaxi s
Surgi marily Prophylaxi s: Cardiothor acic
Du ration of therapy: within 24 hours of surgery Sliding 2021-08 Yes [facility] ers Scale 1-11 , TID ity of Insulin - 03:00: MEALS+HS, [place] Lispro 00 First dose Medical (HumaLOG) + on [facility] Branch [facility] 06/15/22 Testing at 2100, Until Discontinu ed, Routine Sliding 2021-08 Yes [facility] ers Scale 1-11 , TID ity of Insulin - 03:00: MEALS+HS, [place] Lispro 00 First dose Medical (HumaLOG) + on [place] Branch [facility] 06/15/22 Testing at 2100, Until Discontinu ed, Routine omeprazole 2021-08 Yes [id number] 40mg 40 mg, Univers (PRILOSEC) 1-11 Oral, BID, ity of capsule 40 02:00: First dose [place] mg 00 on [facility] 06/15/22 Branch at 1999, Until Discontinu ed omeprazole 2021-08 Yes [id number] 40mg 40 mg, Univers (PRILOSEC) 1-11 Oral, BID, ity of capsule 40 02:00: First dose [place] mg 00 on [facility] 06/15/22 Branch at 1999, Until Discontinu ed doxycycline 2021-08 Yes [id number] 100mg Take 1 Univers hyclate 100 1-11 capsule by it y of mg capsule 00:00: mouth [place] 00 every 12 Medical (twelve) Branch hours. doxycycline 2021-08 Yes [id number] 100mg Take 1 [facility] hyclate 100 1-11 capsule by it y of mg capsule 00:00: mouth [place] 00 every 12 Medical (twelve) Branch hours. doxycycline 2021-08 Yes [id number] 100mg Take 1 [facility] hyclate 100 1-11 capsule by it y of mg capsule 00:00: mouth [place] 00 every 12 Medical (twelve) Branch hours. doxycycline 2021-08 Yes [id number] 100mg Take 1 [facility] hyclate 100 1-11 capsule by it y of mg capsule 00:00: mouth [place] 00 every 12 Medical (twelve) Branch hours. doxycycline 2021-08 Yes [id number] 100mg Take 1 [facility] hyclate 100 1-11 capsule by it y of mg capsule 00:00: mouth [place] 00 every 12 Medical (twelve) Branch hours. doxycycline 2021-08 Yes [id number] 100mg Take 1 [facility] hyclate 100 1-11 capsule by it y of mg capsule 00:00: mouth [place] 00 every 12 Medical (twelve) Branch hours. doxycycline 2021-08 Yes [id number] 100mg Take 1 [facility] hyclate 100 1-11 capsule by it y of mg capsule 00:00: mouth [place] 00 every 12 Medical (twelve) Branch hours. doxycycline 2021-08 Yes [id number] 100mg Take 1 [facility] hyclate 100 1-11 capsule by it y of mg capsule 00:00: mouth [place] 00 every 12 Medical (twelve) Branch hours. doxycycline 2021-08 Yes [id number] 100mg Take 1 Univers hyclate 100 1-11 capsule by it y of mg capsule 00:00: mouth [place] 00 every 12 Medical (twelve) Branch hours. doxycycline 2021-08 Yes [id number] 100mg Take 1 Univers hyclate 100 1-11 capsule by it y of mg capsule 00:00: mouth [place] 00 every 12 Medical (twelve) Branch hours. doxycycline 2021-08 Yes [id number] 100mg Take 1 Univers hyclate 100 1-11 capsule by it y of mg capsule 00:00: mouth [place] 00 every 12 Medical (twelve) Branch hours. doxycycline 2021-08 Yes [id number] 100mg Take 1 [facility] hyclate 100 1-11 capsule by it y of mg capsule 00:00: mouth [place] 00 every 12 Medical (twelve) Branch hours. doxycycline 2021-08 Yes [id number] 100mg Take 1 [facility] hyclate 100 1-11 capsule by it y of mg capsule 00:00: mouth [place] 00 every 12 Medical (twelve) Branch hours. doxycycline 2021-08 Yes [id number] 100mg Take 1 Univers hyclate 100 1-11 capsule by it y of mg capsule 00:00: mouth [place] 00 every 12 Medical (twelve) Branch hours. doxycycline 2021-08 Yes [id number] 100mg Take 1 Univers hyclate 100 1-11 capsule by it y of mg capsule 00:00: mouth [place] 00 every 12 Medical (twelve) Branch hours. doxycycline 2021-08 Yes [id number] 100mg Take 1 Univers hyclate 100 1-11 capsule by it y of mg capsule 00:00: mouth [place] 00 every 12 Medical (twelve) Branch hours. doxycycline 2021-08 Yes [id number] 100mg Take 1 Univers hyclate 100 1-11 capsule by it y of mg capsule 00:00: mouth [place] 00 every 12 Medical (twelve) Branch hours. doxycycline 2021-08 Yes [id number] 100mg Take 1 Univers hyclate 100 1-11 capsule by it y of mg capsule 00:00: mouth [place] 00 every 12 Medical (twelve) Branch hours. doxycycline 2021-08 Yes [id number] 100mg Take 1 Univers hyclate 100 1-11 capsule by it y of mg capsule 00:00: mouth [place] 00 every 12 Medical (twelve) Branch hours. doxycycline 2021-08 Yes [id number] 100mg Take 1 Univers hyclate 100 1-11 capsule by it y of mg capsule 00:00: mouth [place] 00 every 12 Medical (twelve) Branch hours. doxycycline 2021-08 Yes [id number] 100mg Take 1 Univers hyclate 100 1-11 capsule by it y of mg capsule 00:00: mouth [place] 00 every 12 Medical (twelve) Branch hours. doxycycline 2021-08 Yes [id number] 100mg Take 1 Univers hyclate 100 1-11 capsule by it y of mg capsule 00:00: mouth [place] 00 every 12 Medical (twelve) Branch hours. doxycycline 2021-08 Yes [id number] 100mg Take 1 Univers hyclate 100 1-11 capsule by it y of mg capsule 00:00: mouth [place] 00 every 12 Medical (twelve) Branch hours. doxycycline 2021-08 Yes [id number] 100mg Take 1 Univers hyclate 100 1-11 capsule by it y of mg capsule 00:00: mouth [place] 00 every 12 Medical (twelve) Branch hours. doxycycline 2021-08 Yes [id number] 100mg Take 1 Univers hyclate 100 1-11 capsule by it y of mg capsule 00:00: mouth [place] 00 every 12 Medical (twelve) Branch hours. doxycycline 2021-08 Yes [id number] 100mg Take 1 Univers hyclate 100 1-11 capsule by it y of mg capsule 00:00: mouth [place] 00 every 12 Medical (twelve) Branch hours. doxycycline 2021-08 Yes [id number] 100mg Take 1 [facility] hyclate 100 1-11 capsule by it y of mg capsule 00:00: mouth [place] 00 every 12 Medical (twelve) Branch hours. doxycycline 2021-08 Yes [id number] 100mg Take 1 [facility] hyclate 100 1-11 capsule by it y of mg capsule 00:00: mouth [place] 00 every 12 Medical (twelve) Branch hours. doxycycline 2021-08 Yes [id number] 100mg Take 1 [facility] hyclate 100 1-11 capsule by it y of mg capsule 00:00: mouth [place] 00 every 12 Medical (twelve) Branch hours. doxycycline 2021- Yes [id number] 100mg Take 1 [facility] hyclate 100 1-11 capsule by it y of mg capsule 00:00: mouth [place] 00 every 12 Medical (twelve) Branch hours. doxycycline 2021- Yes [id number] 100mg Take 1 [facility] hyclate 100 1-11 capsule by it y of mg capsule 00:00: mouth [place] 00 every 12 Medical (twelve) Branch hours. doxycycline 2021-08 Yes [id number] 100mg Take 1 [facility] hyclate 100 1-11 capsule by it y of mg capsule 00:00: mouth [place] 00 every 12 Medical (twelve) Branch hours. doxycycline 2021-08 Yes [id number] 100mg Take 1 [facility] hyclate 100 1-11 capsule by it y of mg capsule 00:00: mouth [place] 00 every 12 Medical (twelve) Branch hours. doxycycline 2021-08 Yes [id number] 100mg Take 1 [facility] hyclate 100 1-11 capsule by it y of mg capsule 00:00: mouth [place] 00 every 12 Medical (twelve) Branch hours. doxycycline 2021-08 Yes [id number] 100mg Take 1 [facility] hyclate 100 1-11 capsule by it y of mg capsule 00:00: mouth [place] 00 every 12 Medical (twelve) Branch hours. doxycycline 2021-08 Yes [id number] 100mg Take 1 [facility] hyclate 100 1-11 capsule by it y of mg capsule 00:00: mouth [place] 00 every 12 Medical (twelve) Branch hours. doxycycline 2021-08 Yes [id number] 100mg Take 1 [facility] hyclate 100 1-11 capsule by it y of mg capsule 00:00: mouth [place] 00 every 12 Medical (twelve) Branch hours. doxycycline 2021-08 Yes [id number] 100mg Take 1 [facility] hyclate 100 1-11 capsule by it y of mg capsule 00:00: mouth [place] 00 every 12 Medical (twelve) Branch hours. doxycycline 2021- Yes [id number] 100mg Take 1 [facility] hyclate 100 1-11 capsule by it y of mg capsule 00:00: mouth [place] 00 every 12 Medical (twelve) Branch hours. doxycycline 2021-08 Yes [id number] 100mg Take 1 [facility] hyclate 100 1-11 capsule by it y of mg capsule 00:00: mouth [place] 00 every 12 Medical (twelve) Branch hours. doxycycline 2021- Yes [id number] 100mg Take 1 [facility] hyclate 100 1-11 capsule by it y of mg capsule 00:00: mouth [place] 00 every 12 Medical (twelve) Branch hours. doxycycline 2021- Yes [id number] 100mg Take 1 [facility] hyclate 100 1-11 capsule by it y of mg capsule 00:00: mouth [place] 00 every 12 Medical (twelve) Branch hours. doxycycline 2021-08 Yes [id number] 100mg Take 1 [facility] hyclate 100 1-11 capsule by it y of mg capsule 00:00: mouth [place] 00 every 12 Medical (twelve) Branch hours. doxycycline 2021- Yes [id number] 100mg Take 1 [facility] hyclate 100 1-11 capsule by it y of mg capsule 00:00: mouth [place] 00 every 12 Medical (twelve) Branch hours. doxycycline 2021-08 Yes [id number] 100mg Take 1 [facility] hyclate 100 1-11 capsule by it y of mg capsule 00:00: mouth [place] 00 every 12 Medical (twelve) Branch hours. doxycycline 2021-08 Yes [id number] 100mg Take 1 [facility] hyclate 100 1-11 capsule by it y of mg capsule 00:00: mouth [place] 00 every 12 Medical (twelve) Branch hours. doxycycline 2021-08 Yes [id number] 100mg Take 1 [facility] hyclate 100 1-11 capsule by it y of mg capsule 00:00: mouth [place] 00 every 12 Medical (twelve) Branch hours. doxycycline 2021-08 Yes [id number] 100mg Take 1 [facility] hyclate 100 1-11 capsule by it y of mg capsule 00:00: mouth [place] 00 every 12 Medical (twelve) Branch hours. doxycycline 2021-08 Yes [id number] 100mg Take 1 [facility] hyclate 100 1-11 capsule by it y of mg capsule 00:00: mouth [place] 00 every 12 Medical (twelve) Branch hours. doxycycline 2021-08 Yes [id number] 100mg Take 1 [facility] hyclate 100 1-11 capsule by it y of mg capsule 00:00: mouth [place] 00 every 12 Medical (twelve) Branch hours. doxycycline 2021-08 Yes [id number] 100mg Take 1 [facility] hyclate 100 1-11 capsule by it y of mg capsule 00:00: mouth [place] 00 every 12 Medical (twelve) Branch hours. doxycycline 2021- Yes [id number] 100mg Take 1 [facility] hyclate 100 1-11 capsule by it y of mg capsule 00:00: mouth [place] 00 every 12 Medical (twelve) Branch hours. doxycycline 2021- Yes [id number] 100mg Take 1 [facility] hyclate 100 1-11 capsule by it y of mg capsule 00:00: mouth [place] 00 every 12 Medical (twelve) Branch hours. doxycycline 2021-08 Yes [id number] 100mg Take 1 [facility] hyclate 100 1-11 capsule by it y of mg capsule 00:00: mouth [place] 00 every 12 Medical (twelve) Branch hours. doxycycline 2021-08 Yes [id number] 100mg Take 1 [facility] hyclate 100 1-11 capsule by it y of mg capsule 00:00: mouth [place] 00 every 12 Medical (twelve) Branch hours. doxycycline 2021-08 Yes [id number] 100mg Take 1 [facility] hyclate 100 1-11 capsule by it y of mg capsule 00:00: mouth [place] 00 every 12 Medical (twelve) Branch hours. doxycycline 2021-08 Yes [id number] 100mg Take 1 [facility] hyclate 100 1-11 capsule by it y of mg capsule 00:00: mouth [place] 00 every 12 Medical (twelve) Branch hours. doxycycline 2021-08 Yes [id number] 100mg Take 1 [facility] hyclate 100 1-11 capsule by it y of mg capsule 00:00: mouth [place] 00 every 12 Medical (twelve) Branch hours. doxycycline 2021-08 Yes [id number] 100mg Take 1 [facility] hyclate 100 1-11 capsule by it y of mg capsule 00:00: mouth [place] 00 every 12 Medical (twelve) Branch hours. doxycycline 2021-08 Yes [id number] 100mg Take 1 [facility] hyclate 100 1-11 capsule by it y of mg capsule 00:00: mouth [place] 00 every 12 Medical (twelve) Branch hours. doxycycline 2021-08 Yes [id number] 100mg Take 1 [facility] hyclate 100 1-11 capsule by it y of mg capsule 00:00: mouth [place] 00 every 12 Medical (twelve) Branch hours. doxycycline 2021-08 Yes [id number] 100mg Take 1 [facility] hyclate 100 1-11 capsule by it y of mg capsule 00:00: mouth [place] 00 every 12 Medical (twelve) Branch hours. doxycycline 2021- Yes [id number] 100mg Take 1 [facility] hyclate 100 1-11 capsule by it y of mg capsule 00:00: mouth [place] 00 every 12 Medical (twelve) Branch hours. doxycycline 2021-08 Yes [id number] 100mg Take 1 [facility] hyclate 100 1-11 capsule by it y of mg capsule 00:00: mouth [place] 00 every 12 Medical (twelve) Branch hours. doxycycline 2021-08 Yes [id number] 100mg Take 1 [facility] hyclate 100 1-11 capsule by it y of mg capsule 00:00: mouth [place] 00 every 12 Medical (twelve) Branch hours. doxycycline 2021-08 Yes [id number] 100mg Take 1 [facility] hyclate 100 1-11 capsule by it y of mg capsule 00:00: mouth [place] 00 every 12 Medical (twelve) Branch hours. doxycycline 2021-08 Yes [id number] 100mg Take 1 [facility] hyclate 100 1-11 capsule by it y of mg capsule 00:00: mouth [place] 00 every 12 Medical (twelve) Branch hours. doxycycline 2021-08 Yes [id number] 100mg Take 1 [facility] hyclate 100 1-11 capsule by it y of mg capsule 00:00: mouth [place] 00 every 12 Medical (twelve) Branch hours. doxycycline 2021-08 Yes [id number] 100mg Take 1 [facility] hyclate 100 1-11 capsule by it y of mg capsule 00:00: mouth [place] 00 every 12 Medical (twelve) Branch hours. doxycycline 2021-08 Yes [id number] 100mg Take 1 [facility] hyclate 100 1-11 capsule by it y of mg capsule 00:00: mouth [place] 00 every 12 Medical (twelve) Branch hours. doxycycline 2021-08 Yes [id number] 100mg Take 1 [facility] hyclate 100 1-11 capsule by it y of mg capsule 00:00: mouth [place] 00 every 12 Medical (twelve) Branch hours. doxycycline 2021-08 Yes [id number] 100mg Take 1 [facility] hyclate 100 1-11 capsule by it y of mg capsule 00:00: mouth [place] 00 every 12 Medical (twelve) Branch hours. doxycycline 2021-08 Yes [id number] 100mg Take 1 [facility] hyclate 100 1-11 capsule by it y of mg capsule 00:00: mouth [place] 00 every 12 Medical (twelve) Branch hours. doxycycline 2021-08 Yes [id number] 100mg Take 1 [facility] hyclate 100 1-11 capsule by it y of mg capsule 00:00: mouth [place] 00 every 12 Medical (twelve) Branch hours. doxycycline 2021-08- No [id number] 100mg Take 1 [facility] hyclate 100 1-11 02-28 capsule by i ty of mg capsule 00:00: 00:00 mouth [place] 00 :00 every 12 Medical (twelve) Branch hours. HYDROcodone 2021-08- No [id number] 1{tbl} Take 1 U nivers -acetaminop 1-11 -19 tablet by it y of hen 5-325 00:00: 05:59 mouth [place] mg tablet 00 :00 every 4 Medical (four) Branch hours as needed for Pain (scale 7-10) for up to 7 days. Indication s: acute pain HYDROcodone 2021-08- No [id number] 1{tbl} Take 1 U nivers -acetaminop -11 -19 tablet by it y of hen 5-325 00:00: 05:59 mouth [place] mg tablet 00 :00 every 4 Medical (four) Branch hours as needed for Pain (scale 7-10) for up to 7 days. Indication s: acute pain HYDROcodone 2021-08 Yes 1{tbl} 1 tablet, Univers -acetaminop 1-10 Oral, ity of hen (NORCO) 23:22: Q6HPRN, [place] 10-325 mg 56 Starting Medica l tablet 1 on [place] [facility] tablet 06/15/22 at 1722, Until Discontinu ed, Routine, Pain (scale 7-10) HYDROcodone 2021-08 Yes 1{tbl} 1 tablet, Univers -acetaminop 1-10 Oral, ity of hen (NORCO) 23:22: Q6HPRN, [place] 10-325 mg 56 Starting Medica l tablet 1 on [place] [facility] tablet 06/15/22 at 1722, Until Discontinu ed, Routine, Pain (scale 7-10) ondansetron 2021-08 Yes 4mg 4 mg, Slow Univers (ZOFRAN 1-10 IV Push, ity of (PF)) 23:21: Q6HPRN, [place] injection 4 39 Starting Medi marily mg on [place] [facility] 06/15/22 at 1721, Until Discontinu ed, Routine, Nausea and Vomiting (N/V) ondansetron 2021-08 Yes 4mg 4 mg, Slow [facility] (ZOFRAN 1-10 IV Push, ity of (PF)) 23:21: Q6HPRN, [place] injection 4 39 Starting Medi marily mg on [place] [facility] 06/15/22 at 1721, Until Discontinu ed, Routine, Nausea and Vomiting (N/V) acetaminoph 2021-08 Yes 650mg 650 mg, Un trudy en 1-10 Oral, ity of (TYLENOL) 23:21: Q6HPRN, [place] tablet 650 30 Starting Medic al mg on [facility] Branch 06/15/22 at 1721, Until Discontinu ed, Routine, Pain (scale 1-3) acetaminoph 2021-08 Yes 650mg 650 mg, Un trudy en 1-10 Oral, ity of (TYLENOL) 23:21: Q6HPRN, [place] tablet 650 30 Starting Medic al mg on [facility] Branch 06/15/22 at 1721, Until Discontinu ed, Routine, Pain (scale 1-3) furosemide 2021-08 Yes [id number] 80mg 80 mg, Univers (LASIX) 1-10 Oral, ity of tablet 80 23:00: QAM+PM, [place] mg 00 First dose Medical on [facility] 06/15/22 at 1700, Until Discontinu ed, Routine furosemide 2021-08 Yes [id number] 80mg 80 mg, Univers (LASIX) 1-10 Oral, ity of tablet 80 23:00: QAM+PM, [place] mg 00 First dose Medical on [facility] 06/15/22 at 1700, Until Discontinu ed, Routine iopamidol 2021-08- No ONCE INTRA U nivers (ISOVUE 1-10 11-10 PROCEDURE, ity o f 300-500 mL) 22:31: 22:31 Starting [place] injection 51 :51 on [facility] 06/15/22 Branch at 1631, Until Discontinu ed, Routine, CV Intraproce dure traMADoL 2021-08 Yes [id number] 50mg 50 mg, Un trudy (ULTRAM) 1-10 Oral, ity of tablet 50 22:16: Q6HPRN, [place] mg 36 Starting Medical on [facility] 06/15/22 at 1616, Until Discontinu ed, Routine, Pain (scale 4-6) traMADoL 2021-08 Yes [id number] 50mg 50 mg, Un trudy (ULTRAM) 1-10 Oral, ity of tablet 50 22:16: Q6HPRN, [place] mg 36 Starting Medical on [facility] 06/15/22 at 1616, Until Discontinu ed, Routine, Pain (scale 4-6) busPIRone 2021-08 Yes [id number] 5mg 5 mg, Un trudy (BUSPAR) 1-10 Oral, ity of tablet 5 mg 21:25: BIDPRN, [place] 52 Starting Medical on [facility] 06/15/22 at 1525, Until Discontinu ed, Routine, anxiety busPIRone 2021-08 Yes [id number] 5mg 5 mg, Un trudy (BUSPAR) 1-10 Oral, ity of tablet 5 mg 21:25: BIDPRN, [place] 52 Starting Medical on [facility] 06/15/22 at 1525, Until Discontinu ed, Routine, anxiety albuterol 2021-08 Yes [id number] 2.5mg 2.5 mg, Univers (PROVENTIL) 1-10 Inhalation it y of 2.5 mg /3 21:25: , Q4HPRN, [place] mL (0.083 47 Starting Medica l %) on [facility] nebulizer 06/15/22 solution at 1525, 2.5 mg Until Discontinu ed, Routine, Wheezing, Shortness of Breath albuterol 2021-08 Yes [id number] 2.5mg 2.5 mg, Univers (PROVENTIL) 1-10 Inhalation it y of 2.5 mg /3 21:25: , Q4HPRN, [place] mL (0.083 47 Starting Medica l %) on [facility] nebulizer 06/15/22 solution at 1525, 2.5 mg Until Discontinu ed, Routine, Wheezing, Shortness of Breath lidocaine 2021-08- No ONCE INTRA U nivers 1% (PF) 08-15 PROCEDURE, ity o f (XYLOCAINE) 21:12: 21:57 Starting [place] injection 07 :06 on [facility] 06/15/22 Branch at 1512, Until Discontinu ed, Routine, CV Intraproce dure midazolam 2021-08- No ONCE INTRA U nivers (VERSED) 08-15 PROCEDURE, ity of injection 21:03: 22:11 Starting [place] 00 :26 on [facility] 06/15/22 Branch at 1503, Until Discontinu ed, Routine, CV Intraproce dure FENTanyl PF 2022-1 2022- No ONCE INTRA Univers (SUBLIMAZE 08-15 PROCEDURE, it y of (PF)) 21:02: 22:11 Starting [place] injection 43 :32 on [facility] Medical 06/15/22 Branch at 1502, Until Discontinu ed, Routine, CV Intraproce dure vancomycin 2021-08- No CONTINUOUS Univers 1000 mg in 08-15 PRN, ity of NS 200 mL 20:55: 22:59 Starting [place] RTU IV 00 :24 on [facility] Medical Piggyback 06/15/22 Branch at 1455, Until Discontinu ed, Administer over 60 Minutes, CV Intraproce dure methylPREDN 2021-08 Yes [id number] 84mg Take 21 [facility] ISolone 1- 9107 tablets by ity of (MEDROL, 00:00: mouth [place] SHADY,) 4 mg 00 SEE-INSTRU Med ical tablets CTIONS. Branch follow package directions methylPREDN 2021-08 Yes [id number] 84mg Take 21 [facility] ISolone - 9107 tablets by ity of (MEDROL, 00:00: mouth [place] SHADY,) 4 mg 00 SEE-INSTRU Med ical tablets CTIONS. Branch follow package directions methylPREDN 2021-08 Yes [id number] 84mg Take 21 [facility] ISolone - 9107 tablets by ity of (MEDROL, 00:00: mouth [place] SHADY,) 4 mg 00 SEE-INSTRU Med ical tablets CTIONS. Branch follow package directions methylPREDN 2021-08 Yes [id number] 84mg Take 21 [facility] ISolone - 9107 tablets by ity of (MEDROL, 00:00: mouth [place] SHADY,) 4 mg 00 SEE-INSTRU Med ical tablets CTIONS. Branch follow package directions methylPREDN 2021-08 Yes [id number] 84mg Take 21 [facility] ISolone 1-02 9107 tablets by ity of (MEDROL, 00:00: mouth [place] SHADY,) 4 mg 00 SEE-INSTRU Med ical tablets CTIONS. Branch follow package directions methylPREDN 2021-08 Yes [id number] 84mg Take 21 [facility] ISolone 1-02 9107 tablets by ity of (MEDROL, 00:00: mouth [place] SHADY,) 4 mg 00 SEE-INSTRU Med ical tablets CTIONS. Branch follow package directions methylPREDN 2021-08 Yes [id number] 84mg Take 21 [facility] ISolone 1-02 9107 tablets by ity of (MEDROL, 00:00: mouth [place] SHADY,) 4 mg 00 SEE-INSTRU Med ical tablets CTIONS. Branch follow package directions methylPREDN 2021-08 Yes [id number] 84mg Take 21 [facility] ISolone 1-02 9107 tablets by ity of (MEDROL, 00:00: mouth [place] SHADY,) 4 mg 00 SEE-INSTRU Med ical tablets CTIONS. Branch follow package directions methylPREDN 2021-08 Yes [id number] 84mg Take 21 [facility] ISolone 1- 9107 tablets by ity of (MEDROL, 00:00: mouth [place] SHADY,) 4 mg 00 SEE-INSTRU Med ical tablets CTIONS. Branch follow package directions methylPREDN 2021-08 Yes [id number] 84mg Take 21 [facility] ISolone 1- 9107 tablets by ity of (MEDROL, 00:00: mouth [place] SHADY,) 4 mg 00 SEE-INSTRU Med ical tablets CTIONS. Branch follow package directions methylPREDN 2021-08 Yes [id number] 84mg Take 21 [facility] ISolone 1- 9107 tablets by ity of (MEDROL, 00:00: mouth [place] SHADY,) 4 mg 00 SEE-INSTRU Med ical tablets CTIONS. Branch follow package directions methylPREDN 2021-08 Yes [id number] 84mg Take 21 [facility] ISolone - 9107 tablets by ity of (MEDROL, 00:00: mouth [place] SHADY,) 4 mg 00 SEE-INSTRU Med ical tablets CTIONS. Branch follow package directions methylPREDN 2021-08 Yes [id number] 84mg Take 21 [facility] ISolone 1- 9107 tablets by ity of (MEDROL, 00:00: mouth [place] SHADY,) 4 mg 00 SEE-INSTRU Med ical tablets CTIONS. Branch follow package directions methylPREDN 2021-08 Yes [id number] 84mg Take 21 [facility] ISolone 1-02 9107 tablets by ity of (MEDROL, 00:00: mouth [place] SHADY,) 4 mg 00 SEE-INSTRU Med ical tablets CTIONS. Branch follow package directions methylPREDN 2021-08 Yes [id number] 84mg Take 21 [facility] ISolone 1-02 9107 tablets by ity of (MEDROL, 00:00: mouth [place] SHADY,) 4 mg 00 SEE-INSTRU Med ical tablets CTIONS. Branch follow package directions methylPREDN 2021-08 Yes [id number] 84mg Take 21 [facility] ISolone 1-02 9107 tablets by ity of (MEDROL, 00:00: mouth [place] SHADY,) 4 mg 00 SEE-INSTRU Med ical tablets CTIONS. Branch follow package directions methylPREDN 2021-08 Yes [id number] 84mg Take 21 [facility] ISolone 1-02 9107 tablets by ity of (MEDROL, 00:00: mouth [place] SHADY,) 4 mg 00 SEE-INSTRU Med ical tablets CTIONS. Branch follow package directions methylPREDN 2021-08 Yes [id number] 84mg Take 21 [facility] ISolone 1- 9107 tablets by ity of (MEDROL, 00:00: mouth [place] SHADY,) 4 mg 00 SEE-INSTRU Med ical tablets CTIONS. Branch follow package directions methylPREDN 2021-08 Yes [id number] 84mg Take 21 [facility] ISolone 1- 9107 tablets by ity of (MEDROL, 00:00: mouth [place] SHADY,) 4 mg 00 SEE-INSTRU Med ical tablets CTIONS. Branch follow package directions methylPREDN 2021-08 Yes [id number] 84mg Take 21 [facility] ISolone 1- 9107 tablets by ity of (MEDROL, 00:00: mouth [place] SHADY,) 4 mg 00 SEE-INSTRU Med ical tablets CTIONS. Branch follow package directions methylPREDN 2021-08 Yes [id number] 84mg Take 21 [facility] ISolone 1-02 9107 tablets by ity of (MEDROL, 00:00: mouth [place] SHADY,) 4 mg 00 SEE-INSTRU Med ical tablets CTIONS. Branch follow package directions methylPREDN 2021-08 Yes [id number] 84mg Take 21 [facility] ISolone 1-02 9107 tablets by ity of (MEDROL, 00:00: mouth [place] SHADY,) 4 mg 00 SEE-INSTRU Med ical tablets CTIONS. Branch follow package directions methylPREDN 2021-08 Yes [id number] 84mg Take 21 [facility] ISolone 1-02 9107 tablets by ity of (MEDROL, 00:00: mouth [place] SHADY,) 4 mg 00 SEE-INSTRU Med ical tablets CTIONS. Branch follow package directions methylPREDN 2021-08 Yes [id number] 84mg Take 21 [facility] ISolone 1-02 9107 tablets by ity of (MEDROL, 00:00: mouth [place] SHADY,) 4 mg 00 SEE-INSTRU Med ical tablets CTIONS. Branch follow package directions methylPREDN 2021-08 Yes [id number] 84mg Take 21 [facility] ISolone 1-02 9107 tablets by ity of (MEDROL, 00:00: mouth [place] SHADY,) 4 mg 00 SEE-INSTRU Med ical tablets CTIONS. Branch follow package directions methylPREDN 2021-08 Yes [id number] 84mg Take 21 [facility] ISolone 1- 9107 tablets by ity of (MEDROL, 00:00: mouth [place] SHADY,) 4 mg 00 SEE-INSTRU Med ical tablets CTIONS. Branch follow package directions methylPREDN 2021-08 Yes [id number] 84mg Take 21 [facility] ISolone 1- 9107 tablets by ity of (MEDROL, 00:00: mouth [place] SHADY,) 4 mg 00 SEE-INSTRU Med ical tablets CTIONS. Branch follow package directions methylPREDN 2021-08 Yes [id number] 84mg Take 21 [facility] ISolone 1- 9107 tablets by ity of (MEDROL, 00:00: mouth [place] SHADY,) 4 mg 00 SEE-INSTRU Med ical tablets CTIONS. Branch follow package directions methylPREDN 2021-08 Yes [id number] 84mg Take 21 [facility] ISolone 1- 9107 tablets by ity of (MEDROL, 00:00: mouth [place] SHADY,) 4 mg 00 SEE-INSTRU Med ical tablets CTIONS. Branch follow package directions methylPREDN 2021-08 Yes [id number] 84mg Take 21 [facility] ISolone 1-02 9107 tablets by ity of (MEDROL, 00:00: mouth [place] SHADY,) 4 mg 00 SEE-INSTRU Med ical tablets CTIONS. Branch follow package directions methylPREDN 2021-08 Yes [id number] 84mg Take 21 [facility] ISolone 1-02 9107 tablets by ity of (MEDROL, 00:00: mouth [place] SHADY,) 4 mg 00 SEE-INSTRU Med ical tablets CTIONS. Branch follow package directions methylPREDN 2021-08 Yes [id number] 84mg Take 21 [facility] ISolone 1-02 9107 tablets by ity of (MEDROL, 00:00: mouth [place] SHADY,) 4 mg 00 SEE-INSTRU Med ical tablets CTIONS. Branch follow package directions methylPREDN 2021-08 Yes [id number] 84mg Take 21 [facility] ISolone 1-02 9107 tablets by ity of (MEDROL, 00:00: mouth [place] SHADY,) 4 mg 00 SEE-INSTRU Med ical tablets CTIONS. Branch follow package directions methylPREDN 2021-08 Yes [id number] 84mg Take 21 [facility] ISolone 1- 9107 tablets by ity of (MEDROL, 00:00: mouth [place] SHADY,) 4 mg 00 SEE-INSTRU Med ical tablets CTIONS. Branch follow package directions methylPREDN 2021-08 Yes [id number] 84mg Take 21 [facility] ISolone 1- 9107 tablets by ity of (MEDROL, 00:00: mouth [place] SHADY,) 4 mg 00 SEE-INSTRU Med ical tablets CTIONS. Branch follow package directions methylPREDN 2021-08 Yes [id number] 84mg Take 21 [facility] ISolone 1- 9107 tablets by ity of (MEDROL, 00:00: mouth [place] SHADY,) 4 mg 00 SEE-INSTRU Med ical tablets CTIONS. Branch follow package directions methylPREDN 2021-08 Yes [id number] 84mg Take 21 [facility] ISolone - 9107 tablets by ity of (MEDROL, 00:00: mouth [place] SHADY,) 4 mg 00 SEE-INSTRU Med ical tablets CTIONS. Branch follow package directions methylPREDN 2021-08 Yes [id number] 84mg Take 21 [facility] ISolone 1- 9107 tablets by ity of (MEDROL, 00:00: mouth [place] SHADY,) 4 mg 00 SEE-INSTRU Med ical tablets CTIONS. Branch follow package directions methylPREDN 2021-08 Yes [id number] 84mg Take 21 [facility] ISolone 1-02 9107 tablets by ity of (MEDROL, 00:00: mouth [place] SHADY,) 4 mg 00 SEE-INSTRU Med ical tablets CTIONS. Branch follow package directions methylPREDN 2021-08 Yes [id number] 84mg Take 21 [facility] ISolone 1-02 9107 tablets by ity of (MEDROL, 00:00: mouth [place] SHADY,) 4 mg 00 SEE-INSTRU Med ical tablets CTIONS. Branch follow package directions methylPREDN 2021-08 Yes [id number] 84mg Take 21 [facility] ISolone 1-02 9107 tablets by ity of (MEDROL, 00:00: mouth [place] SHADY,) 4 mg 00 SEE-INSTRU Med ical tablets CTIONS. Branch follow package directions methylPREDN 2021-08 Yes [id number] 84mg Take 21 [facility] ISolone 1-02 9107 tablets by ity of (MEDROL, 00:00: mouth [place] SHADY,) 4 mg 00 SEE-INSTRU Med ical tablets CTIONS. Branch follow package directions methylPREDN 2021-08 Yes [id number] 84mg Take 21 [facility] ISolone 1- 9107 tablets by ity of (MEDROL, 00:00: mouth [place] SHADY,) 4 mg 00 SEE-INSTRU Med ical tablets CTIONS. Branch follow package directions methylPREDN 2021-08 Yes [id number] 84mg Take 21 [facility] ISolone 1- 9107 tablets by ity of (MEDROL, 00:00: mouth [place] SHADY,) 4 mg 00 SEE-INSTRU Med ical tablets CTIONS. Branch follow package directions methylPREDN 2021-08 Yes [id number] 84mg Take 21 [facility] ISolone 1- 9107 tablets by ity of (MEDROL, 00:00: mouth [place] SHADY,) 4 mg 00 SEE-INSTRU Med ical tablets CTIONS. Branch follow package directions methylPREDN 2021-08 Yes [id number] 84mg Take 21 [facility] ISolone 1-02 9107 tablets by ity of (MEDROL, 00:00: mouth [place] SHADY,) 4 mg 00 SEE-INSTRU Med ical tablets CTIONS. Branch follow package directions methylPREDN 2021-08 Yes [id number] 84mg Take 21 [facility] ISolone 1-02 9107 tablets by ity of (MEDROL, 00:00: mouth [place] SHADY,) 4 mg 00 SEE-INSTRU Med ical tablets CTIONS. Branch follow package directions methylPREDN 2021-08 Yes [id number] 84mg Take 21 [facility] ISolone 1-02 9107 tablets by ity of (MEDROL, 00:00: mouth [place] SHADY,) 4 mg 00 SEE-INSTRU Med ical tablets CTIONS. Branch follow package directions methylPREDN 2021-08 Yes [id number] 84mg Take 21 [facility] ISolone 1-02 9107 tablets by ity of (MEDROL, 00:00: mouth [place] SHADY,) 4 mg 00 SEE-INSTRU Med ical tablets CTIONS. Branch follow package directions methylPREDN 2021-08 Yes [id number] 84mg Take 21 [facility] ISolone 1-02 9107 tablets by ity of (MEDROL, 00:00: mouth [place] SHADY,) 4 mg 00 SEE-INSTRU Med ical tablets CTIONS. Branch follow package directions methylPREDN 2021-08 Yes [id number] 84mg Take 21 [facility] ISolone 1- 9107 tablets by ity of (MEDROL, 00:00: mouth [place] SHADY,) 4 mg 00 SEE-INSTRU Med ical tablets CTIONS. Branch follow package directions methylPREDN 2021-08 Yes [id number] 84mg Take 21 [facility] ISolone 1- 9107 tablets by ity of (MEDROL, 00:00: mouth [place] SHADY,) 4 mg 00 SEE-INSTRU Med ical tablets CTIONS. Branch follow package directions methylPREDN 2021-08 Yes [id number] 84mg Take 21 [facility] ISolone 1- 9107 tablets by ity of (MEDROL, 00:00: mouth [place] SHADY,) 4 mg 00 SEE-INSTRU Med ical tablets CTIONS. Branch follow package directions methylPREDN 2021-08 Yes [id number] 84mg Take 21 [facility] ISol[facility] 1- 9107 tablets by ity of (MEDROL, 00:00: mouth [place] SHADY,) 4 mg 00 SEE-INSTRU Med ical tablets CTIONS. Branch follow package directions methylPREDN 2021-08 Yes [id number] 84mg Take 21 [facility] ISolone 1-02 9107 tablets by ity of (MEDROL, 00:00: mouth [place] SHADY,) 4 mg 00 SEE-INSTRU Med ical tablets CTIONS. Branch follow package directions methylPREDN 2021-08 Yes [id number] 84mg Take 21 [facility] ISolone 1-02 9107 tablets by ity of (MEDROL, 00:00: mouth [place] SHADY,) 4 mg 00 SEE-INSTRU Med ical tablets CTIONS. Branch follow package directions methylPREDN 2021-08 Yes [id number] 84mg Take 21 [facility] ISolone 1-02 9107 tablets by ity of (MEDROL, 00:00: mouth [place] SHADY,) 4 mg 00 SEE-INSTRU Med ical tablets CTIONS. Branch follow package directions methylPREDN 2021-08 Yes [id number] 84mg Take 21 [facility] ISolone 1-02 9107 tablets by ity of (MEDROL, 00:00: mouth [place] SHADY,) 4 mg 00 SEE-INSTRU Med ical tablets CTIONS. Branch follow package directions methylPREDN 2021-08 Yes [id number] 84mg Take 21 [facility] ISolone 1- 9107 tablets by ity of (MEDROL, 00:00: mouth [place] SHADY,) 4 mg 00 SEE-INSTRU Med ical tablets CTIONS. Branch follow package directions methylPREDN 2021-08 Yes [id number] 84mg Take 21 [facility] ISolone 1- 9107 tablets by ity of (MEDROL, 00:00: mouth [place] SHADY,) 4 mg 00 SEE-INSTRU Med ical tablets CTIONS. Branch follow package directions methylPREDN 2021-08 Yes [id number] 84mg Take 21 [facility] ISolone 1- 9107 tablets by ity of (MEDROL, 00:00: mouth [place] SHADY,) 4 mg 00 SEE-INSTRU Med ical tablets CTIONS. Branch follow package directions methylPREDN 2021-08 Yes [id number] 84mg Take 21 [facility] ISolone - 9107 tablets by ity of (MEDROL, 00:00: mouth [place] SHADY,) 4 mg 00 SEE-INSTRU Med ical tablets CTIONS. Branch follow package directions methylPREDN 2021-08 Yes [id number] 84mg Take 21 [facility] ISolone 1- 9107 tablets by ity of (MEDROL, 00:00: mouth [place] SHADY,) 4 mg 00 SEE-INSTRU Med ical tablets CTIONS. Branch follow package directions methylPREDN 2021-08 Yes [id number] 84mg Take 21 [facility] ISolone 1-02 9107 tablets by ity of (MEDROL, 00:00: mouth [place] SHADY,) 4 mg 00 SEE-INSTRU Med ical tablets CTIONS. Branch follow package directions methylPREDN 2021-08 Yes [id number] 84mg Take 21 [facility] ISolone 1-02 9107 tablets by ity of (MEDROL, 00:00: mouth [place] SHADY,) 4 mg 00 SEE-INSTRU Med ical tablets CTIONS. Branch follow package directions methylPREDN 2021-08 Yes [id number] 84mg Take 21 [facility] ISolone 1-02 9107 tablets by ity of (MEDROL, 00:00: mouth [place] SHADY,) 4 mg 00 SEE-INSTRU Med ical tablets CTIONS. Branch follow package directions methylPREDN 2021-08 Yes [id number] 84mg Take 21 [facility] ISolone 1-02 9107 tablets by ity of (MEDROL, 00:00: mouth [place] SHADY,) 4 mg 00 SEE-INSTRU Med ical tablets CTIONS. Branch follow package directions methylPREDN 2021-08 Yes [id number] 84mg Take 21 [facility] ISolone 1- 9107 tablets by ity of (MEDROL, 00:00: mouth [place] SHADY,) 4 mg 00 SEE-INSTRU Med ical tablets CTIONS. Branch follow package directions methylPREDN 2021-08 Yes [id number] 84mg Take 21 [facility] ISolone 1- 9107 tablets by ity of (MEDROL, 00:00: mouth [place] SHADY,) 4 mg 00 SEE-INSTRU Med ical tablets CTIONS. Branch follow package directions methylPREDN 2021-08 Yes [id number] 84mg Take 21 [facility] ISolone 1- 9107 tablets by ity of (MEDROL, 00:00: mouth [place] SHADY,) 4 mg 00 SEE-INSTRU Med ical tablets CTIONS. Branch follow package directions methylPREDN 2021-08 Yes [id number] 84mg Take 21 [facility] ISolone 1-02 9107 tablets by ity of (MEDROL, 00:00: mouth [place] SHADY,) 4 mg 00 SEE-INSTRU Med ical tablets CTIONS. Branch follow package directions methylPREDN 2021-08 Yes [id number] 84mg Take 21 [facility] ISolone 1-02 9107 tablets by ity of (MEDROL, 00:00: mouth [place] SHADY,) 4 mg 00 SEE-INSTRU Med ical tablets CTIONS. Branch follow package directions methylPREDN 2021-08 Yes [id number] 84mg Take 21 [facility] ISolone 1-02 9107 tablets by ity of (MEDROL, 00:00: mouth [place] SHADY,) 4 mg 00 SEE-INSTRU Med ical tablets CTIONS. Branch follow package directions methylPREDN 2021-08 Yes [id number] 84mg Take 21 [facility] ISolone 08-07 9107 tablets by ity of (MEDROL, 00:00: mouth [place] SHADY,) 4 mg 00 SEE-INSTRU Med ical tablets CTIONS. Branch follow package directions methylPREDN 2021-08 Yes [id number] 84mg Take 21 [facility] ISolone 08-07 9107 tablets by ity of (MEDROL, 00:00: mouth [place] SHADY,) 4 mg 00 SEE-INSTRU Med ical tablets CTIONS. Branch follow package directions methylPREDN 2021-08 Yes [id number] 84mg Take 21 [facility] ISolone 08-07 9107 tablets by ity of (MEDROL, 00:00: mouth [place] SHADY,) 4 mg 00 SEE-INSTRU Med ical tablets CTIONS. Branch follow package directions methylPREDN 2021-08 Yes [id number] 84mg Take 21 [facility] ISolone 08-07 9107 tablets by ity of (MEDROL, 00:00: mouth [place] SHADY,) 4 mg 00 SEE-INSTRU Med ical tablets CTIONS. Branch follow package directions methylPREDN 2021-08 Yes [id number] 84mg Take 21 [facility] ISolone 08-07 9107 tablets by ity of (MEDROL, 00:00: mouth [place] SHADY,) 4 mg 00 SEE-INSTRU Med ical tablets CTIONS. Branch follow package directions methylPREDN 2021-08 2023- No [id number] 84mg Take 21 [facility] ISolone 08-07 9107 tablets by ity o f (MEDROL, 00:00: 00:00 mouth [place] SHADY,) 4 mg 00 :00 SEE-INSTRU Med ical tablets CTIONS. Branch follow package directions mupirocin 2 2021-08 Yes [id number] Apply to [facility] % ointment 0-21 area(s) 3 ity of 00:00: (three) [place] 00 times Medical daily. Branch levocetiriz 2021-08 Yes [id number] 5mg Take 1 [facility] ine 5 mg 0-21 tablet by ity of tablet 00:00: mouth [place] 00 every Medical evening. Branch montelukast 2021-08 Yes [id number] 10mg Take 1 [facility] (SINGULAIR) 0-21 tablet by ity of 10 mg 00:00: mouth in [place] tablet 00 the Medical morning. Branch azelastine 2021-08 Yes [id number] 1{spray Use 1 [facility] 137 mcg 0-21 } [place] in ity of (0.1 %) 00:00: each [place] nasal spray 00 nostril in Me dical the Branch morning and 1 [place] in the evening. Use in each nostril as directed mupirocin 2 2021-08 Yes [id number] Apply to [facility] % ointment 0-21 area(s) 3 ity of 00:00: (three) [place] 00 times Medical daily. Branch levocetiriz 2021-08 Yes [id number] 5mg Take 1 [facility] ine 5 mg 0-21 tablet by ity of tablet 00:00: mouth [place] 00 every Medical evening. Branch montelukast 2021-08 Yes [id number] 10mg Take 1 [facility] (SINGULAIR) 0-21 tablet by ity of 10 mg 00:00: mouth in [place] tablet 00 the Medical morning. Branch azelastine 2021-08 Yes [id number] 1{spray Use 1 [facility] 137 mcg 0-21 } [place] in ity of (0.1 %) 00:00: each [place] nasal spray 00 nostril in Co dical the Branch morning and 1 [place] in the evening. Use in each nostril as directed mupirocin 2 2021-08 Yes [id number] Apply to [facility] % ointment 0-21 area(s) 3 ity of 00:00: (three) [place] 00 times Medical daily. Branch levocetiriz 2021-08 Yes [id number] 5mg Take 1 [facility] ine 5 mg 0-21 tablet by ity of tablet 00:00: mouth [place] 00 every Medical evening. Branch montelukast 2021-08 Yes [id number] 10mg Take 1 [facility] (SINGULAIR) 0-21 tablet by ity of 10 mg 00:00: mouth in [place] tablet 00 the Medical morning. Branch azelastine 2021-08 Yes [id number] 1{spray Use 1 [facility] 137 mcg 0-21 } [place] in ity of (0.1 %) 00:00: each [place] nasal spray 00 nostril in Co dical the Branch morning and 1 [place] in the evening. Use in each nostril as directed mupirocin 2 2021-08 Yes [id number] Apply to [facility] % ointment 0-21 area(s) 3 ity of 00:00: (three) [place] 00 times Medical daily. Branch levocetiriz 2021-08 Yes [id number] 5mg Take 1 [facility] ine 5 mg 0-21 tablet by ity of tablet 00:00: mouth [place] 00 every Medical evening. Branch montelukast 2021-08 Yes [id number] 10mg Take 1 [facility] (SINGULAIR) 0-21 tablet by ity of 10 mg 00:00: mouth in [place] tablet 00 the Medical morning. Branch azelastine 2021-08 Yes [id number] 1{spray Use 1 [facility] 137 mcg 0-21 } [place] in ity of (0.1 %) 00:00: each [place] nasal spray 00 nostril in Co dical the [place] morning and 1 [place] in the evening. Use in each nostril as directed mupirocin 2 2021-08 Yes [id number] Apply to [facility] % ointment 0-21 area(s) 3 ity of 00:00: (three) [place] 00 times Medical daily. Branch levocetiriz 2021-08 Yes [id number] 5mg Take 1 [facility] ine 5 mg 0-21 tablet by ity of tablet 00:00: mouth [place] 00 every Medical evening. Branch montelukast 2021-08 Yes [id number] 10mg Take 1 [facility] (SINGULAIR) 0-21 tablet by ity of 10 mg 00:00: mouth in [place] tablet 00 the Medical morning. Branch azelastine 2021-08 Yes [id number] 1{spray Use 1 [facility] 137 mcg 0-21 } [place] in ity of (0.1 %) 00:00: each [place] nasal spray 00 nostril in Me dical the [place] morning and 1 [place] in the evening. Use in each nostril as directed mupirocin 2 2021-08 Yes [id number] Apply to [facility] % ointment 0-21 area(s) 3 ity of 00:00: (three) [place] 00 times Medical daily. Branch levocetiriz 2021-08 Yes [id number] 5mg Take 1 [facility] ine 5 mg 0-21 tablet by ity of tablet 00:00: mouth [place] 00 every Medical evening. Branch montelukast 2021-08 Yes [id number] 10mg Take 1 [facility] (SINGULAIR) 0-21 tablet by ity of 10 mg 00:00: mouth in [place] tablet 00 the Medical morning. Branch azelastine 2021-08 Yes [id number] 1{spray Use 1 [facility] 137 mcg 0-21 } [place] in ity of (0.1 %) 00:00: each [place] nasal spray 00 nostril in Co dical the [place] morning and 1 [place] in the evening. Use in each nostril as directed mupirocin 2 2021-08 Yes [id number] Apply to [facility] % ointment 0-21 area(s) 3 ity of 00:00: (three) [place] 00 times Medical daily. Branch levocetiriz 2021-08 Yes [id number] 5mg Take 1 [facility] in[facility] 5 mg 0-21 tablet by ity of tablet 00:00: mouth [place] 00 every Medical evening. Branch montelukast 2021-08 Yes [id number] 10mg Take 1 [facility] (SINGULAIR) 0-21 tablet by ity of 10 mg 00:00: mouth in [place] tablet 00 the Medical morning. Branch azelastine 2021-08 Yes [id number] 1{spray Use 1 [facility] 137 mcg 0-21 } [place] in ity of (0.1 %) 00:00: each [place] nasal spray 00 nostril in [facility] the [place] morning and 1 [place] in the evening. Use in each nostril as directed mupirocin 2 2021-08 Yes [id number] Apply to [facility] % ointment 0-21 area(s) 3 ity of 00:00: (three) [place] 00 times Medical daily. Branch levocetiriz 2021-08 Yes [id number] 5mg Take 1 [facility] in[facility] 5 mg 0-21 tablet by ity of tablet 00:00: mouth [place] 00 every Medical evening. Branch montelukast 2021-08 Yes [id number] 10mg Take 1 [facility] (SINGULAIR) 0-21 tablet by ity of 10 mg 00:00: mouth in [place] tablet 00 the Medical morning. Branch azelastine 2021-08 Yes [id number] 1{spray Use 1 [facility] 137 mcg 0-21 } [place] in ity of (0.1 %) 00:00: each [place] nasal spray 00 nostril in Co dical the [place] morning and 1 [place] in the evening. Use in each nostril as directed mupirocin 2 2021-08 Yes [id number] Apply to [facility] % ointment 0-21 area(s) 3 ity of 00:00: (three) [place] 00 times Medical daily. Branch levocetiriz 2021-08 Yes [id number] 5mg Take 1 [facility] ine 5 mg 0-21 tablet by ity of tablet 00:00: mouth [place] 00 every Medical evening. Branch montelukast 2021-08 Yes [id number] 10mg Take 1 [facility] (SINGULAIR) 0-21 tablet by ity of 10 mg 00:00: mouth in [place] tablet 00 the Medical morning. Branch azelastine 2021-08 Yes [id number] 1{spray Use 1 [facility] 137 mcg 0-21 } [place] in ity of (0.1 %) 00:00: each [place] nasal spray 00 nostril in [facility] morning and 1 [place] in the evening. Use in each nostril as directed mupirocin 2 2021-08 Yes [id number] Apply to [facility] % ointment 0-21 area(s) 3 ity of 00:00: (three) [place] 00 times Medical daily. Branch levocetiriz 2021-08 Yes [id number] 5mg Take 1 [facility] ine 5 mg 0-21 tablet by ity of tablet 00:00: mouth [place] 00 every Medical evening. Branch montelukast 2021-08 Yes [id number] 10mg Take 1 [facility] (SINGULAIR) 0-21 tablet by ity of 10 mg 00:00: mouth in [place] tablet 00 the Medical morning. Branch azelastine 2021-08 Yes [id number] 1{spray Use 1 [facility] 137 mcg 0-21 } [place] in ity of (0.1 %) 00:00: each [place] nasal spray 00 nostril in Co dicnd the [place] morning and 1 [place] in the evening. Use in each nostril as directed mupirocin 2 2021-08 Yes [id number] Apply to [facility] % ointment 0-21 area(s) 3 ity of 00:00: (three) [place] 00 times Medical daily. Branch levocetiriz 2021-08 Yes [id number] 5mg Take 1 [facility] ine 5 mg 0-21 tablet by ity of tablet 00:00: mouth [place] 00 every Medical evening. Branch montelukast 2021-08 Yes [id number] 10mg Take 1 [facility] (SINGULAIR) 0-21 tablet by ity of 10 mg 00:00: mouth in [place] tablet 00 the Medical morning. Branch azelastine 2021-08 Yes [id number] 1{spray Use 1 [facility] 137 mcg 0-21 } [place] in ity of (0.1 %) 00:00: each [place] nasal spray 00 nostril in Me dical the [place] morning and 1 [place] in the evening. Use in each nostril as directed mupirocin 2 2021-08 Yes [id number] Apply to [facility] % ointment 0-21 area(s) 3 ity of 00:00: (three) [place] 00 times Medical daily. Branch levocetiriz 2021-08 Yes [id number] 5mg Take 1 [facility] ine 5 mg 0-21 tablet by ity of tablet 00:00: mouth [place] 00 every Medical evening. Branch montelukast 2021-08 Yes [id number] 10mg Take 1 [facility] (SINGULAIR) 0-21 tablet by ity of 10 mg 00:00: mouth in [place] tablet 00 the Medical morning. Branch azelastine 2021-08 Yes [id number] 1{spray Use 1 [facility] 137 mcg 0-21 } [place] in ity of (0.1 %) 00:00: each [place] nasal spray 00 nostril in Co dical the [place] morning and 1 [place] in the evening. Use in each nostril as directed mupirocin 2 2021-08 Yes [id number] Apply to [facility] % ointment 0-21 area(s) 3 ity of 00:00: (three) [place] 00 times Medical daily. Branch levocetiriz 2021-08 Yes [id number] 5mg Take 1 [facility] ine 5 mg 0-21 tablet by ity of tablet 00:00: mouth [place] 00 every Medical evening. Branch montelukast 2021-08 Yes [id number] 10mg Take 1 [facility] (SINGULAIR) 0-21 tablet by ity of 10 mg 00:00: mouth in [place] tablet 00 the Medical morning. Branch azelastine 2021-08 Yes [id number] 1{spray Use 1 [facility] 137 mcg 0-21 } [place] in ity of (0.1 %) 00:00: each [place] nasal spray 00 nostril in [facility] the [place] morning and 1 [place] in the evening. Use in each nostril as directed mupirocin 2 2021-08 Yes [id number] Apply to [facility] % ointment 0-21 area(s) 3 ity of 00:00: (three) [place] 00 times Medical daily. Branch levocetiriz 2021-08 Yes [id number] 5mg Take 1 [facility] ine 5 mg 0-21 tablet by ity of tablet 00:00: mouth [place] 00 every Medical evening. Branch montelukast 2021-08 Yes [id number] 10mg Take 1 [facility] (SINGULAIR) 0-21 tablet by ity of 10 mg 00:00: mouth in [place] tablet 00 the Medical morning. Branch azelastine 2021-08 Yes [id number] 1{spray Use 1 [facility] 137 mcg 0-21 } [place] in ity of (0.1 %) 00:00: each [place] nasal spray 00 nostril in [facility] the [place] morning and 1 [place] in the evening. Use in each nostril as directed mupirocin 2 2021-08 Yes [id number] Apply to [facility] % ointment 0-21 area(s) 3 ity of 00:00: (three) [place] 00 times Medical daily. Branch levocetiriz 2021-08 Yes [id number] 5mg Take 1 [facility] ine 5 mg 0-21 tablet by ity of tablet 00:00: mouth [place] 00 every Medical evening. Branch montelukast 2021-08 Yes [id number] 10mg Take 1 [facility] (SINGULAIR) 0-21 tablet by ity of 10 mg 00:00: mouth in [place] tablet 00 the Medical morning. Branch azelastine 2021-08 Yes [id number] 1{spray Use 1 [facility] 137 mcg 0-21 } [place] in ity of (0.1 %) 00:00: each [place] nasal spray 00 nostril in [facility] the [place] morning and 1 [place] in the evening. Use in each nostril as directed mupirocin 2 2021-08 Yes [id number] Apply to [facility] % ointment 0-21 area(s) 3 ity of 00:00: (three) [place] 00 times Medical daily. Branch levocetiriz 2021-08 Yes [id number] 5mg Take 1 [facility] ine 5 mg 0-21 tablet by ity of tablet 00:00: mouth [place] 00 every Medical evening. Branch montelukast 2021-08 Yes [id number] 10mg Take 1 [facility] (SINGULAIR) 0-21 tablet by ity of 10 mg 00:00: mouth in [place] tablet 00 the Medical morning. [place] azelastine 2021-08 Yes [id number] 1{spray Use 1 [facility] 137 mcg 0-21 } [place] in ity of (0.1 %) 00:00: each [place] nasal spray 00 nostril in Me dical the [place] morning and 1 [place] in the evening. Use in each nostril as directed mupirocin 2 2021-08 Yes [id number] Apply to [facility] % ointment 0-21 area(s) 3 ity of 00:00: (three) [place] 00 times Medical daily. [place] levocetiriz 2021-08 Yes [id number] 5mg Take 1 [facility] ine 5 mg 0-21 tablet by ity of tablet 00:00: mouth [place] 00 every Medical evening. Branch montelukast 2021-08 Yes [id number] 10mg Take 1 [facility] (SINGULAIR) 0-21 tablet by ity of 10 mg 00:00: mouth in [place] tablet 00 the Medical morning. [place] azelastine 2021-08 Yes [id number] 1{spray Use 1 [facility] 137 mcg 0-21 } [place] in ity of (0.1 %) 00:00: each [place] nasal spray 00 nostril in Me dical the [place] morning and 1 [place] in the evening. Use in each nostril as directed mupirocin 2 2021-08 Yes [id number] Apply to [facility] % ointment 0-21 area(s) 3 ity of 00:00: (three) [place] 00 times Medical daily. Branch levocetiriz 2021-08 Yes [id number] 5mg Take 1 [facility] ine 5 mg 0-21 tablet by ity of tablet 00:00: mouth [place] 00 every Medical evening. [place] montelukast 2021-08 Yes [id number] 10mg Take 1 [facility] (SINGULAIR) 0-21 tablet by ity of 10 mg 00:00: mouth in [place] tablet 00 the Medical morning. Branch azelastine 2021-08 Yes [id number] 1{spray Use 1 [facility] 137 mcg 0-21 } [place] in ity of (0.1 %) 00:00: each [place] [facility] [place] morning and 1 [place] in the evening. Use in each nostril as directed mupirocin 2 2021-08 Yes [id number] Apply to [facility] % ointment 0-21 area(s) 3 ity of 00:00: (three) [place] 00 times Medical daily. Branch levocetiriz 2021-08 Yes [id number] 5mg Take 1 [facility] ine 5 mg 0-21 tablet by ity of tablet 00:00: mouth [place] 00 every Medical evening. Branch montelukast 2021-08 Yes [id number] 10mg Take 1 [facility] (SINGULAIR) 0-21 tablet by ity of 10 mg 00:00: mouth in [place] tablet 00 the Medical morning. Branch azelastine 2021-08 Yes [id number] 1{spray Use 1 [facility] 137 mcg 0-21 } [place] in ity of (0.1 %) 00:00: each [place] nasal spray 00 nostril in [facility] morning and 1 [place] in the evening. Use in each nostril as directed mupirocin 2 2021-08 Yes [id number] Apply to [facility] % ointment 0-21 area(s) 3 ity of 00:00: (three) [place] 00 times Medical daily. Branch levocetiriz 2021-08 Yes [id number] 5mg Take 1 [facility] ine 5 mg 0-21 tablet by ity of tablet 00:00: mouth [place] 00 every Medical evening. Branch montelukast 2021-08 Yes [id number] 10mg Take 1 [facility] (SINGULAIR) 0-21 tablet by ity of 10 mg 00:00: mouth in [place] tablet 00 the Medical morning. Branch azelastine 2021-08 Yes [id number] 1{spray Use 1 [facility] 137 mcg 0-21 } [place] in ity of (0.1 %) 00:00: each [place] nasal spray 00 nostril in [facility] the [place] morning and 1 [place] in the evening. Use in each nostril as directed mupirocin 2 2021-08 Yes [id number] Apply to [facility] % ointment 0-21 area(s) 3 ity of 00:00: (three) [place] 00 times Medical daily. Branch levocetiriz 2021-08 Yes [id number] 5mg Take 1 [facility] ine 5 mg 0-21 tablet by ity of tablet 00:00: mouth [place] 00 every Medical evening. Branch montelukast 2021-08 Yes [id number] 10mg Take 1 [facility] (SINGULAIR) 0-21 tablet by ity of 10 mg 00:00: mouth in [place] tablet 00 the Medical morning. Branch azelastine 2021-08 Yes [id number] 1{spray Use 1 [facility] 137 mcg 0-21 } [place] in ity of (0.1 %) 00:00: each [place] nasal spray 00 nostril in Me dical the [place] morning and 1 [place] in the evening. Use in each nostril as directed mupirocin 2 2021-08 Yes [id number] Apply to [facility] % ointment 0-21 area(s) 3 ity of 00:00: (three) [place] 00 times Medical daily. Branch levocetiriz 2021-08 Yes [id number] 5mg Take 1 [facility] ine 5 mg 0-21 tablet by ity of tablet 00:00: mouth [place] 00 every Medical evening. Branch montelukast 2021-08 Yes [id number] 10mg Take 1 [facility] (SINGULAIR) 0-21 tablet by ity of 10 mg 00:00: mouth in [place] tablet 00 the Medical morning. [place] azelastine 2021-08 Yes [id number] 1{spray Use 1 [facility] 137 mcg 0-21 } [place] in ity of (0.1 %) 00:00: each [place] nasal spray 00 nostril in Co dical the [place] morning and 1 [place] in the evening. Use in each nostril as directed mupirocin 2 2021-08 Yes [id number] Apply to [facility] % ointment 0-21 area(s) 3 ity of 00:00: (three) [place] 00 times Medical daily. Branch levocetiriz 2021-08 Yes [id number] 5mg Take 1 [facility] ine 5 mg 0-21 tablet by ity of tablet 00:00: mouth [place] 00 every Medical evening. Branch montelukast 2021-08 Yes [id number] 10mg Take 1 [facility] (SINGULAIR) 0-21 tablet by ity of 10 mg 00:00: mouth in [place] tablet 00 the Medical morning. [place] azelastine 2021-08 Yes [id number] 1{spray Use 1 [facility] 137 mcg 0-21 } [place] in ity of (0.1 %) 00:00: each [place] nasal spray 00 nostril in Me dical the Branch morning and 1 [place] in the evening. Use in each nostril as directed mupirocin 2 2021-08 Yes [id number] Apply to [facility] % ointment 0-21 area(s) 3 ity of 00:00: (three) [place] 00 times Medical daily. Branch levocetiriz 2021-08 Yes [id number] 5mg Take 1 [facility] ine 5 mg 0-21 tablet by ity of tablet 00:00: mouth [place] 00 every Medical evening. Branch montelukast 2021-08 Yes [id number] 10mg Take 1 [facility] (SINGULAIR) 0-21 tablet by ity of 10 mg 00:00: mouth in [place] tablet 00 the Medical morning. Branch azelastine 2021-08 Yes [id number] 1{spray Use 1 [facility] 137 mcg 0-21 } [place] in ity of (0.1 %) 00:00: each [place] nasal spray 00 nostril in Co dical the Branch morning and 1 [place] in the evening. Use in each nostril as directed mupirocin 2 2021-08 Yes [id number] Apply to [facility] % ointment 0-21 area(s) 3 ity of 00:00: (three) [place] 00 times Medical daily. Branch levocetiriz 2021-08 Yes [id number] 5mg Take 1 [facility] ine 5 mg 0-21 tablet by ity of tablet 00:00: mouth [place] 00 every Medical evening. Branch montelukast 2021-08 Yes [id number] 10mg Take 1 [facility] (SINGULAIR) 0-21 tablet by ity of 10 mg 00:00: mouth in [place] tablet 00 the Medical morning. Branch azelastine 2021-08 Yes [id number] 1{spray Use 1 [facility] 137 mcg 0-21 } [place] in ity of (0.1 %) 00:00: each [place] nasal spray 00 nostril in Co dical the Branch morning and 1 [place] in the evening. Use in each nostril as directed mupirocin 2 2021-08 Yes [id number] Apply to [facility] % ointment 0-21 area(s) 3 ity of 00:00: (three) [place] 00 times Medical daily. Branch levocetiriz 2021-08 Yes [id number] 5mg Take 1 [facility] ine 5 mg 0-21 tablet by ity of tablet 00:00: mouth [place] 00 every Medical evening. Branch montelukast 2021-08 Yes [id number] 10mg Take 1 [facility] (SINGULAIR) 0-21 tablet by ity of 10 mg 00:00: mouth in [place] tablet 00 the Medical morning. [place] azelastine 2021-08 Yes [id number] 1{spray Use 1 [facility] 137 mcg 0-21 } [place] in ity of (0.1 %) 00:00: each [place] nasal spray 00 nostril in Co dical [facility] morning and 1 [place] in the evening. Use in each nostril as directed mupirocin 2 2021-08 Yes [id number] Apply to [facility] % ointment 0-21 area(s) 3 ity of 00:00: (three) [place] 00 times Medical daily. Branch levocetiriz 2021-08 Yes [id number] 5mg Take 1 [facility] ine 5 mg 0-21 tablet by ity of tablet 00:00: mouth [place] 00 every Medical evening. [place] montelukast 2021-08 Yes [id number] 10mg Take 1 [facility] (SINGULAIR) 0-21 tablet by ity of 10 mg 00:00: mouth in [place] tablet 00 the Medical morning. [place] azelastine 2021-08 Yes [id number] 1{spray Use 1 [facility] 137 mcg 0-21 } [place] in ity of (0.1 %) 00:00: each [place] nasal spray 00 nostril in Co dical the [place] morning and 1 [place] in the evening. Use in each nostril as directed mupirocin 2 2021-08 Yes [id number] Apply to [facility] % ointment 0-21 area(s) 3 ity of 00:00: (three) [place] 00 times Medical daily. Branch levocetiriz 2021-08 Yes [id number] 5mg Take 1 [facility] 5 [facility] 0-21 tablet by [facility] tablet 00:00: mouth [place] 00 every Medical evening. [facility] montelukast 2021-08 Yes [id number] 10mg Take 1 [facility] (SINGULAIR) 0-21 tablet by it[facility] of 10 mg 00:00: mouth in [place] tablet 00 the Medical morning. [place] azelastine 2021-08 Yes [id number] 1{spray Use 1 [facility] 137 mcg 0-21 } [place] in ity of (0.1 %) 00:00: each [place] nasal spray 00 nostril in [facility] the [place] morning and 1 [place] in the evening. Use in each nostril as directed mupirocin 2 2021-08 Yes [id number] Apply to [facility] % ointment 0-21 area(s) 3 ity of 00:00: (three) [place] 00 times Medical daily. [place] levocetiriz 2021-08 Yes [id number] 5mg Take 1 [facility] 5 mg 0-21 tablet by [facility] of tablet 00:00: mouth [place] 00 every Medical evening. [place] montelukast 2021-08 Yes [id number] 10mg Take 1 [facility] (SINGULAIR) 0-21 tablet by it[facility] of 10 mg 00:00: mouth in [place] tablet 00 the Medical morning. [place] azelastine 2021-08 Yes [id number] 1{spray Use 1 [facility] 137 mcg 0-21 } [place] in ity of (0.1 %) 00:00: each [place] [facility] [place] [facility] and 1 [place] in the evening. Use in each nostril as directed mupirocin 2 2021-08 Yes [id number] Apply to [facility] % ointment 0-21 area(s) 3 ity of 00:00: (three) [place] 00 times Medical daily. [place] levocetiriz 2021-08 Yes [id number] 5mg Take 1 [facility] 5 mg 0-21 tablet by it[facility] of tablet 00:00: mouth [place] 00 every Medical evening. [place] montelukast 2021-08 Yes [id number] 10mg Take 1 [facility] (SINGULAIR) 0-21 tablet by ity of 10 mg 00:00: mouth in [place] tablet 00 the Medical morning. [place] azelastine 2021-08 Yes [id number] 1{spray Use 1 [facility] 137 mcg 0-21 } [place] in ity of (0.1 %) 00:00: each [place] nasal spray 00 nostril in Co [facility] the [place] morning and 1 [place] in the evening. Use in each nostril as directed mupirocin 2 2021-08 Yes [id number] Apply to [facility] % ointment 0-21 area(s) 3 ity of 00:00: (three) [place] 00 times Medical daily. [facility] levocetiriz 2021-08 Yes [id number] 5mg Take 1 [facility] 5 mg 0-21 tablet by [facility] of tablet 00:00: mouth [place] 00 every Medical evening. [facility] montelukast 2021-08 Yes [id number] 10mg Take 1 [facility] (SINGULAIR) 0-21 tablet by it[facility] of 10 mg 00:00: mouth in [place] tablet 00 the Medical morning. [facility] azelastine 2021-08 Yes [id number] 1{spray Use 1 [facility] 137 mcg 0-21 } [place] in ity of (0.1 %) 00:00: each [place] nasal spray 00 nostril in [facility] dicnd the [place] morning and 1 [place] in the evening. Use in each nostril as directed mupirocin 2 2021-08 Yes [id number] Apply to [facility] % ointment 0-21 area(s) 3 ity of 00:00: (three) [place] 00 times Medical daily. [facility] levocetiriz 2021-08 Yes [id number] 5mg Take 1 [facility] 5 mg 0-21 tablet by [facility] of tablet 00:00: mouth [place] 00 every Medical evening. [facility] montelukast 2021-08 Yes [id number] 10mg Take 1 [facility] (SINGULAIR) 0-21 tablet by it[facility] of 10 mg 00:00: mouth in [place] tablet 00 the Medical morning. [facility] azelastine 2021-08 Yes [id number] 1{spray Use 1 [facility] 137 mcg 0-21 } [place] in ity of (0.1 %) 00:00: each [place] nasal spray 00 nostril in Me [facility] the [place] morning and 1 [place] in the evening. Use in each nostril as directed mupirocin 2 2021-08 Yes [id number] Apply to [facility] % ointment 0-21 area(s) 3 ity of 00:00: (three) [place] 00 times Medical daily. [facility] levocetiriz 2021-08 Yes [id number] 5mg Take 1 [facility] 5 mg 0-21 tablet by [facility] of tablet 00:00: mouth [place] 00 every Medical evening. [facility] montelukast 2021-08 Yes [id number] 10mg Take 1 [facility] (SINGULAIR) 0-21 tablet by ity of 10 mg 00:00: mouth in [place] tablet 00 the Medical morning. [facility] azelastine 2021-08 Yes [id number] 1{spray Use 1 [facility] 137 mcg 0-21 } [place] in ity of (0.1 %) 00:00: each [place] nasal spray 00 nostril in Co dical the [place] morning and 1 [place] in the evening. Use in each nostril as directed mupirocin 2 2021-08 Yes [id number] Apply to [facility] % ointment 0-21 area(s) 3 ity of 00:00: (three) [place] 00 times Medical daily. [facility] levocetiriz 2021-08 Yes [id number] 5mg Take 1 [facility] 5 mg 0-21 tablet by it[facility] of tablet 00:00: mouth [place] 00 every Medical evening. [place] montelukast 2021-08 Yes [id number] 10mg Take 1 [facility] (SINGULAIR) 0-21 tablet by ity of 10 mg 00:00: mouth in [place] tablet 00 the Medical morning. [place] azelastine 2021-08 Yes [id number] 1{spray Use 1 [facility] 137 mcg 0-21 } [place] in ity of (0.1 %) 00:00: each [place] nasal spray 00 nostril in [facility] morning and 1 [place] in the evening. Use in each nostril as directed mupirocin 2 2021-08 Yes [id number] Apply to [facility] % ointment 0-21 area(s) 3 ity of 00:00: (three) [place] 00 times Medical daily. [facility] levocetiriz 2021-08 Yes [id number] 5mg Take 1 [facility] 5 mg 0-21 tablet by ity of tablet 00:00: mouth [place] 00 every Medical evening. [facility] montelukast 2021-08 Yes [id number] 10mg Take 1 [facility] (SINGULAIR) 0-21 tablet by ity of 10 mg 00:00: mouth in [place] tablet 00 the Medical morning. [facility] azelastine 2021-08 Yes [id number] 1{spray Use 1 [facility] 137 mcg 0-21 } [place] in ity of (0.1 %) 00:00: each [place] nasal spray 00 nostril in Co dical the [place] morning and 1 [place] in the evening. Use in each nostril as directed mupirocin 2 2021-08 Yes [id number] Apply to [facility] % ointment 0-21 area(s) 3 ity of 00:00: (three) [place] 00 times Medical daily. [facility] levocetiriz 2021-08 Yes [id number] 5mg Take 1 [facility] 5 mg 0-21 tablet by it[facility] of tablet 00:00: mouth [place] 00 every Medical evening. [facility] montelukast 2021-08 Yes [id number] 10mg Take 1 [facility] (SINGULAIR) 0-21 tablet by ity of 10 mg 00:00: mouth in [place] tablet 00 the Medical morning. [facility] azelastine 2021-08 Yes [id number] 1{spray Use 1 [facility] 137 mcg 0-21 } [place] in ity of (0.1 %) 00:00: each [place] nasal spray 00 nostril in [facility] the [place] morning and 1 [place] in the evening. Use in each nostril as directed mupirocin 2 2021-08 Yes [id number] Apply to [facility] % ointment 0-21 area(s) 3 ity of 00:00: (three) [place] 00 times Medical daily. [facility] levocetiriz 2021-08 Yes [id number] 5mg Take 1 [facility] 5 mg 0-21 tablet by ity of tablet 00:00: mouth [place] 00 every Medical evening. [facility] montelukast 2021-08 Yes [id number] 10mg Take 1 [facility] (SINGULAIR) 0-21 tablet by ity of 10 mg 00:00: mouth in [place] tablet 00 the Medical morning. [facility] azelastine 2021-08 Yes [id number] 1{spray Use 1 [facility] 137 mcg 0-21 } [place] in ity of (0.1 %) 00:00: each [place] nasal spray 00 nostril in Co [facility]ical the [place] morning and 1 [place] in the evening. Use in each nostril as directed mupirocin 2 2021-08 Yes [id number] Apply to [facility] % ointment 0-21 area(s) 3 ity of 00:00: (three) [place] 00 times Medical daily. [facility] levocetiriz 2021-08 Yes [id number] 5mg Take 1 [facility] 5 mg 0-21 tablet by ity of tablet 00:00: mouth [place] 00 every Medical evening. [place] montelukast 2021-08 Yes [id number] 10mg Take 1 [facility] (SINGULAIR) 0-21 tablet by ity of 10 mg 00:00: mouth in [place] tablet 00 the Medical morning. [place] azelastine 2021-08 Yes [id number] 1{spray Use 1 [facility] 137 mcg 0-21 } [place] in ity of (0.1 %) 00:00: each [place] nasal spray 00 nostril in Co dical [facility] morning and 1 [place] in the evening. Use in each nostril as directed mupirocin 2 2021-08 Yes [id number] Apply to [facility] % ointment 0-21 area(s) 3 ity of 00:00: (three) [place] 00 times Medical daily. [place] levocetiriz 2021-08 Yes [id number] 5mg Take 1 [facility] 5 mg 0-21 tablet by ity of tablet 00:00: mouth [place] 00 every Medical evening. [place] montelukast 2021-08 Yes [id number] 10mg Take 1 [facility] (SINGULAIR) 0-21 tablet by ity of 10 mg 00:00: mouth in [place] tablet 00 the Medical morning. [place] azelastine 2021-08 Yes [id number] 1{spray Use 1 [facility] 137 mcg 0-21 } [place] in ity of (0.1 %) 00:00: each [place] nasal spray 00 nostril in [facility] morning and 1 [place] in the evening. Use in each nostril as directed mupirocin 2 2021-08 Yes [id number] Apply to [facility] % ointment 0-21 area(s) 3 ity of 00:00: (three) [place] 00 times Medical daily. [place] levocetiriz 2021-08 Yes [id number] 5mg Take 1 [facility] 5 mg 0-21 tablet by ity of tablet 00:00: mouth [place] 00 every Medical evening. [place] montelukast 2021-08 Yes [id number] 10mg Take 1 [facility] (SINGULAIR) 0-21 tablet by ity of 10 mg 00:00: mouth in [place] tablet 00 the Medical morning. [place] azelastine 2021-08 Yes [id number] 1{spray Use 1 [facility] 137 mcg 0-21 } [place] in ity of (0.1 %) 00:00: each [place] nasal spray 00 nostril in Co dical the [facility] morning and 1 [place] in the evening. Use in each nostril as directed mupirocin 2 2021-08 Yes [id number] Apply to [facility] % ointment 0-21 area(s) 3 ity of 00:00: (three) [place] 00 times Medical daily. [facility] levocetiriz 2021-08 Yes [id number] 5mg Take 1 [facility] 5 mg 0-21 tablet by ity of tablet 00:00: mouth [place] 00 every Medical evening. [facility] montelukast 2021-08 Yes [id number] 10mg Take 1 [facility] (SINGULAIR) 0-21 tablet by ity of 10 mg 00:00: mouth in [place] tablet 00 the Medical morning. [facility] azelastine 2021-08 Yes [id number] 1{spray Use 1 [facility] 137 mcg 0-21 } [place] in ity of (0.1 %) 00:00: each [place] nasal spray 00 nostril in [facility] the [place] morning and 1 [place] in the evening. Use in each nostril as directed mupirocin 2 2021-08 Yes [id number] Apply to [facility] % ointment 0-21 area(s) 3 ity of 00:00: (three) [place] 00 times Medical daily. [facility] levocetiriz 2021-08 Yes [id number] 5mg Take 1 [facility] 5 mg 0-21 tablet by ity of tablet 00:00: mouth [place] 00 every Medical evening. [facility] montelukast 2021-08 Yes [id number] 10mg Take 1 [facility] (SINGULAIR) 0-21 tablet by ity of 10 mg 00:00: mouth in [place] tablet 00 the Medical morning. [facility] azelastine 2021-08 Yes [id number] 1{spray Use 1 [facility] 137 mcg 0-21 } [place] in ity of (0.1 %) 00:00: each [place] [facility] [place] morning and 1 [place] in the evening. Use in each nostril as directed mupirocin 2 2021-08 Yes [id number] Apply to [facility] % ointment 0-21 area(s) 3 ity of 00:00: (three) [place] 00 times Medical daily. [facility] levocetiriz 2021-08 Yes [id number] 5mg Take 1 [facility] 5 mg 0-21 tablet by ity of tablet 00:00: mouth [place] 00 every Medical evening. [facility] montelukast 2021-08 Yes [id number] 10mg Take 1 [facility] (SINGULAIR) 0-21 tablet by ity of 10 mg 00:00: mouth in [place] tablet 00 the Medical morning. [place] azelastine 2021-08 Yes [id number] 1{spray Use 1 [facility] 137 mcg 0-21 } [place] in ity of (0.1 %) 00:00: each [place] nasal spray 00 nostril in Me d[facility] the [place] morning and 1 [place] in the evening. Use in each nostril as directed mupirocin 2 2021-08 Yes [id number] Apply to [facility] % ointment 0-21 area(s) 3 ity of 00:00: (three) [place] 00 times Medical daily. [facility] levocetiriz 2021-08 Yes [id number] 5mg Take 1 [facility] 5 mg 0-21 tablet by ity of tablet 00:00: mouth [place] 00 every Medical evening. [facility] montelukast 2021-08 Yes [id number] 10mg Take 1 [facility] (SINGULAIR) 0-21 tablet by ity of 10 mg 00:00: mouth in [place] tablet 00 the Medical morning. [place] azelastine 2021-08 Yes [id number] 1{spray Use 1 [facility] 137 mcg 0-21 } [place] in ity of (0.1 %) 00:00: each [place] nasal spray 00 nostril in Co dical [facility] morning and 1 [place] in the evening. Use in each nostril as directed mupirocin 2 2021-08 Yes [id number] Apply to [facility] % ointment 0-21 area(s) 3 ity of 00:00: (three) [place] 00 times Medical daily. [facility] levocetiriz 2021-08 Yes [id number] 5mg Take 1 [facility] 5 mg 0-21 tablet by ity of tablet 00:00: mouth [place] 00 every Medical evening. [facility] montelukast 2021-08 Yes [id number] 10mg Take 1 [facility] (SINGULAIR) 0-21 tablet by ity of 10 mg 00:00: mouth in [place] tablet 00 the Medical morning. [facility] azelastine 2021-08 Yes [id number] 1{spray Use 1 [facility] 137 mcg 0-21 } [place] in ity of (0.1 %) 00:00: each [place] nasal spray 00 nostril in Me d[facility] the [facility] morning and 1 [place] in the evening. Use in each nostril as directed mupirocin 2 2021-08 Yes [id number] Apply to [facility] % ointment 0-21 area(s) 3 ity of 00:00: (three) [place] 00 times Medical daily. [place] levocetiriz 2021-08 Yes [id number] 5mg Take 1 [facility] 5 mg 0-21 tablet by ity of tablet 00:00: mouth [place] 00 every Medical evening. [place] montelukast 2021-08 Yes [id number] 10mg Take 1 [facility] (SINGULAIR) 0-21 tablet by ity of 10 mg 00:00: mouth in [place] tablet 00 the Medical morning. [place] azelastine 2021-08 Yes [id number] 1{spray Use 1 [facility] 137 mcg 0-21 } [place] in ity of (0.1 %) 00:00: each [place] nasal spray 00 nostril in Co dical the [place] morning and 1 [place] in the evening. Use in each nostril as directed mupirocin 2 2021-08 Yes [id number] Apply to [facility] % ointment 0-21 area(s) 3 ity of 00:00: (three) [place] 00 times Medical daily. [place] levocetiriz 2021-08 Yes [id number] 5mg Take 1 [facility] 5 mg 0-21 tablet by ity of tablet 00:00: mouth [place] 00 every Medical evening. [place] montelukast 2021-08 Yes [id number] 10mg Take 1 [facility] (SINGULAIR) 0-21 tablet by ity of 10 mg 00:00: mouth in [place] tablet 00 the Medical morning. [place] azelastine 2021-08 Yes [id number] 1{spray Use 1 [facility] 137 mcg 0-21 } [place] in ity of (0.1 %) 00:00: each [place] nasal spray 00 nostril in Me dical the [place] morning and 1 [place] in the evening. Use in each nostril as directed mupirocin 2 2021-08 Yes [id number] Apply to [facility] % ointment 0-21 area(s) 3 ity of 00:00: (three) [place] 00 times Medical daily. [facility] levocetiriz 2021-08 Yes [id number] 5mg Take 1 [facility] 5 mg 0-21 tablet by ity of tablet 00:00: mouth [place] 00 every Medical evening. [place] montelukast 2021-08 Yes [id number] 10mg Take 1 [facility] (SINGULAIR) 0-21 tablet by ity of 10 mg 00:00: mouth in [place] tablet 00 the Medical morning. [place] azelastine 2021-08 Yes [id number] 1{spray Use 1 [facility] 137 mcg 0-21 } [place] in ity of (0.1 %) 00:00: each [place] nasal spray 00 nostril in Me [facility] the [place] morning and 1 [place] in the evening. Use in each nostril as directed mupirocin 2 2021-08 Yes [id number] Apply to [facility] % ointment 0-21 area(s) 3 ity of 00:00: (three) [place] 00 times Medical daily. [facility] levocetiriz 2021-08 Yes [id number] 5mg Take 1 [facility] 5 mg 0-21 tablet by ity of tablet 00:00: mouth [place] 00 every Medical evening. [place] montelukast 2021-08 Yes [id number] 10mg Take 1 [facility] (SINGULAIR) 0-21 tablet by ity of 10 mg 00:00: mouth in [place] tablet 00 the Medical morning. [place] azelastine 2021-08 Yes [id number] 1{spray Use 1 [facility] 137 mcg 0-21 } [place] in ity of (0.1 %) 00:00: each [place] nasal spray 00 nostril in Me dical the [place] morning and 1 [place] in the evening. Use in each nostril as directed mupirocin 2 2021-08 Yes [id number] Apply to [facility] % ointment 0-21 area(s) 3 ity of 00:00: (three) [place] 00 times Medical daily. [facility] levocetiriz 2021-08 Yes [id number] 5mg Take 1 [facility] 5 mg 0-21 tablet by ity of tablet 00:00: mouth [place] 00 every Medical evening. [facility] montelukast 2021-08 Yes [id number] 10mg Take 1 [facility] (SINGULAIR) 0-21 tablet by ity of 10 mg 00:00: mouth in [place] tablet 00 the Medical morning. [facility] azelastine 2021-08 Yes [id number] 1{spray Use 1 [facility] 137 mcg 0-21 } [place] in ity of (0.1 %) 00:00: each [place] nasal spray 00 nostril in Me dical the [facility] morning and 1 [place] in the evening. Use in each nostril as directed mupirocin 2 2021-08 Yes [id number] Apply to [facility] % ointment 0-21 area(s) 3 ity of 00:00: (three) [place] 00 times Medical daily. [facility] levocetiriz 2021-08 Yes [id number] 5mg Take 1 [facility] 5 mg 0-21 tablet by ity of tablet 00:00: mouth [place] 00 every Medical evening. [facility] montelukast 2021-08 Yes [id number] 10mg Take 1 [facility] (SINGULAIR) 0-21 tablet by ity of 10 mg 00:00: mouth in [place] tablet 00 the Medical morning. [facility] azelastine 2021-08 Yes [id number] 1{spray Use 1 [facility] 137 mcg 0-21 } [place] in ity of (0.1 %) 00:00: each [place] nasal spray 00 nostril in Co dical the [facility] morning and 1 [place] in the evening. Use in each nostril as directed mupirocin 2 2021-08 Yes [id number] Apply to [facility] % ointment 0-21 area(s) 3 ity of 00:00: (three) [place] 00 times Medical daily. [facility] levocetiriz 2021-08 Yes [id number] 5mg Take 1 [facility] 5 mg 0-21 tablet by ity of tablet 00:00: mouth [place] 00 every Medical evening. [facility] montelukast 2021-08 Yes [id number] 10mg Take 1 [facility] (SINGULAIR) 0-21 tablet by ity of 10 mg 00:00: mouth in [place] tablet 00 the Medical morning. [facility] azelastine 2021-08 Yes [id number] 1{spray Use 1 [facility] 137 mcg 0-21 } [place] in ity of (0.1 %) 00:00: each [place] nasal spray 00 nostril in Co dical the [facility] morning and 1 [place] in the evening. Use in each nostril as directed mupirocin 2 2021-08 Yes [id number] Apply to [facility] % ointment 0-21 area(s) 3 ity of 00:00: (three) [place] 00 times Medical daily. [facility] levocetiriz 2021-08 Yes [id number] 5mg Take 1 [facility] 5 mg 0-21 tablet by ity of tablet 00:00: mouth [place] 00 every Medical evening. [facility] montelukast 2021-08 Yes [id number] 10mg Take 1 [facility] (SINGULAIR) 0-21 tablet by ity of 10 mg 00:00: mouth in [place] tablet 00 the Medical morning. [facility] azelastine 2021-08 Yes [id number] 1{spray Use 1 [facility] 137 mcg 0-21 } [place] in ity of (0.1 %) 00:00: each [place] nasal spray 00 nostril in Me dical the [place] morning and 1 [place] in the evening. Use in each nostril as directed mupirocin 2 2021-08 Yes [id number] Apply to [facility] % ointment 0-21 area(s) 3 ity of 00:00: (three) [place] 00 times Medical daily. [facility] levocetiriz 2021-08 Yes [id number] 5mg Take 1 [facility] 5 mg 0-21 tablet by ity of tablet 00:00: mouth [place] 00 every Medical evening. [facility] montelukast 2021-08 Yes [id number] 10mg Take 1 [facility] (SINGULAIR) 0-21 tablet by ity of 10 mg 00:00: mouth in [place] tablet 00 the Medical morning. [place] azelastine 2021-08 Yes [id number] 1{spray Use 1 [facility] 137 mcg 0-21 } [place] in ity of (0.1 %) 00:00: each [place] nasal spray 00 nostril in Co dical the [place] morning and 1 [place] in the evening. Use in each nostril as directed mupirocin 2 2021-08 Yes [id number] Apply to [facility] % ointment 0-21 area(s) 3 ity of 00:00: (three) [place] 00 times Medical daily. [facility] levocetiriz 2021-08 Yes [id number] 5mg Take 1 [facility] 5 mg 0-21 tablet by ity of tablet 00:00: mouth [place] 00 every Medical evening. [facility] montelukast 2021-08 Yes [id number] 10mg Take 1 [facility] (SINGULAIR) 0-21 tablet by ity of 10 mg 00:00: mouth in [place] tablet 00 the Medical morning. [facility] azelastine 2021-08 Yes [id number] 1{spray Use 1 [facility] 137 mcg 0-21 } [place] in ity of (0.1 %) 00:00: each [place] nasal spray 00 nostril in Me dical the [facility] morning and 1 [place] in the evening. Use in each nostril as directed mupirocin 2 2021-08 Yes [id number] Apply to [facility] % ointment 0-21 area(s) 3 ity of 00:00: (three) [place] 00 times Medical daily. [facility] levocetiriz 2021-08 Yes [id number] 5mg Take 1 [facility] 5 mg 0-21 tablet by ity of tablet 00:00: mouth [place] 00 every Medical evening. [facility] montelukast 2021-08 Yes [id number] 10mg Take 1 [facility] (SINGULAIR) 0-21 tablet by ity of 10 mg 00:00: mouth in [place] tablet 00 the Medical morning. [facility] azelastine 2021-08 Yes [id number] 1{spray Use 1 [facility] 137 mcg 0-21 } [place] in ity of (0.1 %) 00:00: each [place] nasal spray 00 nostril in Me dical the [facility] morning and 1 [place] in the evening. Use in each nostril as directed mupirocin 2 2021-08 Yes [id number] Apply to [facility] % ointment 0-21 area(s) 3 ity of 00:00: (three) [place] 00 times Medical daily. [facility] levocetiriz 2021-08 Yes [id number] 5mg Take 1 [facility] 5 mg 0-21 tablet by ity of tablet 00:00: mouth [place] 00 every Medical evening. [facility] montelukast 2021-08 Yes [id number] 10mg Take 1 [facility] (SINGULAIR) 0-21 tablet by ity of 10 mg 00:00: mouth in [place] tablet 00 the Medical morning. [facility] azelastine 2021-08 Yes [id number] 1{spray Use 1 [facility] 137 mcg 0-21 } [place] in ity of (0.1 %) 00:00: each [place] nasal spray 00 nostril in Me dical the [facility] morning and 1 [place] in the evening. Use in each nostril as directed mupirocin 2 2021-08 Yes [id number] Apply to [facility] % ointment 0-21 area(s) 3 ity of 00:00: (three) [place] 00 times Medical daily. [facility] levocetiriz 2021-08 Yes [id number] 5mg Take 1 [facility] 5 mg 0-21 tablet by ity of tablet 00:00: mouth [place] 00 every Medical evening. [facility] montelukast 2021-08 Yes [id number] 10mg Take 1 [facility] (SINGULAIR) 0-21 tablet by ity of 10 mg 00:00: mouth in [place] tablet 00 the Medical morning. [facility] azelastine 2021-08 Yes [id number] 1{spray Use 1 [facility] 137 mcg 0-21 } [place] in ity of (0.1 %) 00:00: each [place] nasal spray 00 nostril in [facility] morning and 1 [place] in the evening. Use in each nostril as directed mupirocin 2 2021-08 Yes [id number] Apply to [facility] % ointment 0-21 area(s) 3 ity of 00:00: (three) [place] 00 times Medical daily. [facility] levocetiriz 2021-08 Yes [id number] 5mg Take 1 [facility] 5 mg 0-21 tablet by ity of tablet 00:00: mouth [place] 00 every Medical evening. [facility] montelukast 2021-08 Yes [id number] 10mg Take 1 [facility] (SINGULAIR) 0-21 tablet by ity of 10 mg 00:00: mouth in [place] tablet 00 the Medical morning. [facility] azelastine 2021-08 Yes [id number] 1{spray Use 1 [facility] 137 mcg 0-21 } [place] in ity of (0.1 %) 00:00: each [place] nasal spray 00 nostril in Co dical the [place] morning and 1 [place] in the evening. Use in each nostril as directed mupirocin 2 2021-08 Yes [id number] Apply to [facility] % ointment 0-21 area(s) 3 ity of 00:00: (three) [place] 00 times Medical daily. [facility] levocetiriz 2021-08 Yes [id number] 5mg Take 1 [facility] 5 mg 0-21 tablet by ity of tablet 00:00: mouth [place] 00 every Medical evening. [facility] montelukast 2021-08 Yes [id number] 10mg Take 1 [facility] (SINGULAIR) 0-21 tablet by ity of 10 mg 00:00: mouth in [place] tablet 00 the Medical morning. [facility] azelastine 2021-08 Yes [id number] 1{spray Use 1 [facility] 137 mcg 0-21 } [place] in ity of (0.1 %) 00:00: each [place] nasal spray 00 nostril in Me dical the [place] morning and 1 [place] in the evening. Use in each nostril as directed mupirocin 2 2021-08 Yes [id number] Apply to [facility] % ointment 0-21 area(s) 3 ity of 00:00: (three) [place] 00 times Medical daily. [facility] levocetiriz 2021-08 Yes [id number] 5mg Take 1 [facility] 5 mg 0-21 tablet by ity of tablet 00:00: mouth [place] 00 every Medical evening. [facility] montelukast 2021-08 Yes [id number] 10mg Take 1 [facility] (SINGULAIR) 0-21 tablet by ity of 10 mg 00:00: mouth in [place] tablet 00 the Medical morning. [facility] azelastine 2021-08 Yes [id number] 1{spray Use 1 [facility] 137 mcg 0-21 } [place] in ity of (0.1 %) 00:00: each [place] nasal spray 00 nostril in Co dical [facility] morning and 1 [place] in the evening. Use in each nostril as directed mupirocin 2 2021-08 Yes [id number] Apply to [facility] % ointment 0-21 area(s) 3 ity of 00:00: (three) [place] 00 times Medical daily. [facility] levocetiriz 2021-08 Yes [id number] 5mg Take 1 [facility] 5 mg 0-21 tablet by ity of tablet 00:00: mouth [place] 00 every Medical evening. [facility] montelukast 2021-08 Yes [id number] 10mg Take 1 [facility] (SINGULAIR) 0-21 tablet by ity of 10 mg 00:00: mouth in [place] tablet 00 the Medical morning. [facility] azelastine 2021-08 Yes [id number] 1{spray Use 1 [facility] 137 mcg 0-21 } [place] in ity of (0.1 %) 00:00: each [place] nasal spray 00 nostril in [facility] morning and 1 [place] in the evening. Use in each nostril as directed mupirocin 2 2021-08 Yes [id number] Apply to [facility] % ointment 0-21 area(s) 3 ity of 00:00: (three) [place] 00 times Medical daily. [facility] levocetiriz 2021-08 Yes [id number] 5mg Take 1 [facility] 5 mg 0-21 tablet by ity of tablet 00:00: mouth [place] 00 every Medical evening. Branch montelukast 2021-08 Yes [id number] 10mg Take 1 [facility] (SINGULAIR) 0-21 tablet by ity of 10 mg 00:00: mouth in [place] tablet 00 the Medical morning. Branch azelastine 2021-08 Yes [id number] 1{spray Use 1 [facility] 137 mcg 0-21 } [place] in ity of (0.1 %) 00:00: each [place] nasal spray 00 nostril in [facility] morning and 1 [place] in the evening. Use in each nostril as directed mupirocin 2 2021-08 Yes [id number] Apply to [facility] % ointment 0-21 area(s) 3 ity of 00:00: (three) [place] 00 times Medical daily. Branch levocetiriz 2021-08 Yes [id number] 5mg Take 1 [facility] ine 5 mg 0-21 tablet by ity of tablet 00:00: mouth [place] 00 every Medical evening. Branch montelukast 2021-08 Yes [id number] 10mg Take 1 [facility] (SINGULAIR) 0-21 tablet by ity of 10 mg 00:00: mouth in [place] tablet 00 the Medical morning. Branch azelastine 2021-08 Yes [id number] 1{spray Use 1 [facility] 137 mcg 0-21 } [place] in ity of (0.1 %) 00:00: each [place] nasal spray 00 nostril in [facility] the [place] morning and 1 [place] in the evening. Use in each nostril as directed mupirocin 2 2021-08 Yes [id number] Apply to [facility] % ointment 0-21 area(s) 3 ity of 00:00: (three) [place] 00 times Medical daily. Branch levocetiriz 2021-08 Yes [id number] 5mg Take 1 [facility] ine 5 mg 0-21 tablet by ity of tablet 00:00: mouth [place] 00 every Medical evening. Branch montelukast 2021-08 Yes [id number] 10mg Take 1 [facility] (SINGULAIR) 0-21 tablet by ity of 10 mg 00:00: mouth in [place] tablet 00 the Medical morning. [place] azelastine 2021-08 Yes [id number] 1{spray Use 1 [facility] 137 mcg 0-21 } [place] in ity of (0.1 %) 00:00: each [place] nasal spray 00 nostril in [facility] the [place] morning and 1 [place] in the evening. Use in each nostril as directed mupirocin 2 2021-08 Yes [id number] Apply to [facility] % ointment 0-21 area(s) 3 ity of 00:00: (three) [place] 00 times Medical daily. Branch levocetiriz 2021-08 Yes [id number] 5mg Take 1 [facility] ine 5 mg 0-21 tablet by ity of tablet 00:00: mouth [place] 00 every Medical evening. Branch montelukast 2021-08 Yes [id number] 10mg Take 1 [facility] (SINGULAIR) 0-21 tablet by ity of 10 mg 00:00: mouth in [place] tablet 00 the Medical morning. [place] azelastine 2021-08 Yes [id number] 1{spray Use 1 [facility] 137 mcg 0-21 } [place] in ity of (0.1 %) 00:00: each [place] nasal spray 00 nostril in [facility] the [place] morning and 1 [place] in the evening. Use in each nostril as directed mupirocin 2 2021-08 Yes [id number] Apply to [facility] % ointment 0-21 area(s) 3 ity of 00:00: (three) [place] 00 times Medical daily. Branch levocetiriz 2021-08 Yes [id number] 5mg Take 1 [facility] in[facility] 5 mg 0-21 tablet by ity of tablet 00:00: mouth [place] 00 every Medical evening. Branch montelukast 2021-08 Yes [id number] 10mg Take 1 [facility] (SINGULAIR) 0-21 tablet by ity of 10 mg 00:00: mouth in [place] tablet 00 the Medical morning. Branch azelastine 2021-08 Yes [id number] 1{spray Use 1 [facility] 137 mcg 0-21 } [place] in ity of (0.1 %) 00:00: each [place] nasal spray 00 nostril in [facility] the Branch morning and 1 [place] in the evening. Use in each nostril as directed mupirocin 2 2021-08 Yes [id number] Apply to [facility] % ointment 0-21 area(s) 3 ity of 00:00: (three) [place] 00 times Medical daily. Branch levocetiriz 2021-08 Yes [id number] 5mg Take 1 [facility] ine 5 mg 0-21 tablet by ity of tablet 00:00: mouth [place] 00 every Medical evening. [place] montelukast 2021-08 Yes [id number] 10mg Take 1 [facility] (SINGULAIR) 0-21 tablet by ity of 10 mg 00:00: mouth in [place] tablet 00 the Medical morning. [place] azelastine 2021-08 Yes [id number] 1{spray Use 1 [facility] 137 mcg 0-21 } [place] in ity of (0.1 %) 00:00: each [place] nasal spray 00 nostril in [facility] the [place] morning and 1 [place] in the evening. Use in each nostril as directed mupirocin 2 2021-08 Yes [id number] Apply to [facility] % ointment 0-21 area(s) 3 ity of 00:00: (three) [place] 00 times Medical daily. [place] levocetiriz 2021-08 Yes [id number] 5mg Take 1 [facility] ine 5 mg 0-21 tablet by ity of tablet 00:00: mouth [place] 00 every Medical evening. [place] montelukast 2021-08 Yes [id number] 10mg Take 1 [facility] (SINGULAIR) 0-21 tablet by ity of 10 mg 00:00: mouth in [place] tablet 00 the Medical morning. [place] azelastine 2021-08 Yes [id number] 1{spray Use 1 [facility] 137 mcg 0-21 } [place] in ity of (0.1 %) 00:00: each [place] [facility] [place] morning and 1 [place] in the evening. Use in each nostril as directed mupirocin 2 2021-08 Yes [id number] Apply to [facility] % ointment 0-21 area(s) 3 ity of 00:00: (three) [place] 00 times Medical daily. Branch levocetiriz 2021-08 Yes [id number] 5mg Take 1 [facility] ine 5 mg 0-21 tablet by ity of tablet 00:00: mouth [place] 00 every Medical evening. Branch montelukast 2021-08 Yes [id number] 10mg Take 1 [facility] (SINGULAIR) 0-21 tablet by ity of 10 mg 00:00: mouth in [place] tablet 00 the Medical morning. Branch azelastine 2021-08 Yes [id number] 1{spray Use 1 [facility] 137 mcg 0-21 } [place] in ity of (0.1 %) 00:00: each [place] nasal spray 00 nostril in [facility] the [place] morning and 1 [place] in the evening. Use in each nostril as directed mupirocin 2 2021-08 Yes [id number] Apply to [facility] % ointment 0-21 area(s) 3 ity of 00:00: (three) [place] 00 times Medical daily. Branch levocetiriz 2021-08 Yes [id number] 5mg Take 1 [facility] in[facility] 5 mg 0-21 tablet by ity of tablet 00:00: mouth [place] 00 every Medical evening. Branch montelukast 2021-08 Yes [id number] 10mg Take 1 [facility] (SINGULAIR) 0-21 tablet by ity of 10 mg 00:00: mouth in [place] tablet 00 the Medical morning. Branch azelastine 2021-08 Yes [id number] 1{spray Use 1 [facility] 137 mcg 0-21 } [place] in ity of (0.1 %) 00:00: each [place] nasal spray 00 nostril in Co dical [facility] morning and 1 [place] in the evening. Use in each nostril as directed mupirocin 2 2021-08 Yes [id number] Apply to [facility] % ointment 0-21 area(s) 3 ity of 00:00: (three) [place] 00 times Medical daily. Branch levocetiriz 2021-08 Yes [id number] 5mg Take 1 [facility] in[facility] 5 mg 0-21 tablet by ity of tablet 00:00: mouth [place] 00 every Medical evening. Branch montelukast 2021-08 Yes [id number] 10mg Take 1 [facility] (SINGULAIR) 0-21 tablet by ity of 10 mg 00:00: mouth in [place] tablet 00 the Medical morning. [place] azelastine 2021-08 Yes [id number] 1{spray Use 1 [facility] 137 mcg 0-21 } [place] in ity of (0.1 %) 00:00: each [place] nasal spray 00 nostril in Me [facility] the Branch morning and 1 [place] in the evening. Use in each nostril as directed mupirocin 2 2021-08 Yes [id number] Apply to [facility] % ointment 0-21 area(s) 3 ity of 00:00: (three) [place] 00 times Medical daily. Branch levocetiriz 2021-08 Yes [id number] 5mg Take 1 [facility] in[facility] 5 mg 0-21 tablet by ity of tablet 00:00: mouth [place] 00 every Medical evening. Branch montelukast 2021-08 Yes [id number] 10mg Take 1 [facility] (SINGULAIR) 0-21 tablet by ity of 10 mg 00:00: mouth in [place] tablet 00 the Medical morning. [place] azelastine 2021-08 Yes [id number] 1{spray Use 1 [facility] 137 mcg 0-21 } [place] in ity of (0.1 %) 00:00: each [place] nasal spray 00 nostril in Co [facility] the [place] morning and 1 [place] in the evening. Use in each nostril as directed mupirocin 2 2021-08 Yes [id number] Apply to [facility] % ointment 0-21 area(s) 3 ity of 00:00: (three) [place] 00 times Medical daily. Branch levocetiriz 2021-08 Yes [id number] 5mg Take 1 [facility] in[facility] 5 mg 0-21 tablet by ity of tablet 00:00: mouth [place] 00 every Medical evening. Branch montelukast 2021-08 Yes [id number] 10mg Take 1 [facility] (SINGULAIR) 0-21 tablet by ity of 10 mg 00:00: mouth in [place] tablet 00 the Medical morning. Branch azelastine 2021-08 Yes [id number] 1{spray Use 1 [facility] 137 mcg 0-21 } [place] in ity of (0.1 %) 00:00: each [place] nasal spray 00 nostril in [facility] the [place] morning and 1 [place] in the evening. Use in each nostril as directed mupirocin 2 2021-08 Yes [id number] Apply to [facility] % ointment 0-21 area(s) 3 ity of 00:00: (three) [place] 00 times Medical daily. Branch levocetiriz 2021-08 Yes [id number] 5mg Take 1 [facility] in[facility] 5 mg 0-21 tablet by ity of tablet 00:00: mouth [place] 00 every Medical evening. [place] montelukast 2021-08 Yes [id number] 10mg Take 1 [facility] (SINGULAIR) 0-21 tablet by ity of 10 mg 00:00: mouth in [place] tablet 00 the Medical morning. [place] azelastine 2021-08 Yes [id number] 1{spray Use 1 [facility] 137 mcg 0-21 } [place] in ity of (0.1 %) 00:00: each [place] nasal spray 00 nostril in [facility] the [place] morning and 1 [place] in the evening. Use in each nostril as directed mupirocin 2 2021-08 Yes [id number] Apply to [facility] % ointment 0-21 area(s) 3 ity of 00:00: (three) [place] 00 times Medical daily. [place] levocetiriz 2021-08 Yes [id number] 5mg Take 1 [facility] ine 5 mg 0-21 tablet by ity of tablet 00:00: mouth [place] 00 every Medical evening. [place] montelukast 2021-08 Yes [id number] 10mg Take 1 [facility] (SINGULAIR) 0-21 tablet by ity of 10 mg 00:00: mouth in [place] tablet 00 the Medical morning. [place] azelastine 2021-08 Yes [id number] 1{spray Use 1 [facility] 137 mcg 0-21 } [place] in ity of (0.1 %) 00:00: each [place] nasal spray 00 nostril in [facility] the [place] morning and 1 [place] in the evening. Use in each nostril as directed mupirocin 2 2021-08 Yes [id number] Apply to [facility] % ointment 0-21 area(s) 3 ity of 00:00: (three) [place] 00 times Medical daily. Branch levocetiriz 2021-08 Yes [id number] 5mg Take 1 [facility] ine 5 mg 0-21 tablet by ity of tablet 00:00: mouth [place] 00 every Medical evening. Branch montelukast 2021-08 Yes [id number] 10mg Take 1 [facility] (SINGULAIR) 0-21 tablet by ity of 10 mg 00:00: mouth in [place] tablet 00 the Medical morning. [place] azelastine 2021-08 Yes [id number] 1{spray Use 1 [facility] 137 mcg 0-21 } [place] in ity of (0.1 %) 00:00: each [place] nasal spray 00 nostril in Co [facility] the Branch morning and 1 [place] in the evening. Use in each nostril as directed mupirocin 2 2021-08 Yes [id number] Apply to [facility] % ointment 0-21 area(s) 3 ity of 00:00: (three) [place] 00 times Medical daily. Branch levocetiriz 2021-08 Yes [id number] 5mg Take 1 [facility] in[facility] 5 mg 0-21 tablet by ity of tablet 00:00: mouth [place] 00 every Medical evening. [place] montelukast 2021-08 Yes [id number] 10mg Take 1 [facility] (SINGULAIR) 0-21 tablet by ity of 10 mg 00:00: mouth in [place] tablet 00 the Medical morning. [place] azelastine 2021-08 Yes [id number] 1{spray Use 1 [facility] 137 mcg 0-21 } [place] in ity of (0.1 %) 00:00: each [place] [facility] and 1 [place] in the evening. Use in each nostril as directed mupirocin 2 2021-08 Yes [id number] Apply to [facility] % ointment 0-21 area(s) 3 ity of 00:00: (three) [place] 00 times Medical daily. Branch levocetiriz 2021-08 Yes [id number] 5mg Take 1 [facility] ine 5 mg 0-21 tablet by ity of tablet 00:00: mouth [place] 00 every Medical evening. Branch montelukast 2021-08 Yes [id number] 10mg Take 1 [facility] (SINGULAIR) 0-21 tablet by ity of 10 mg 00:00: mouth in [place] tablet 00 the Medical morning. [place] azelastine 2021-08 Yes [id number] 1{spray Use 1 [facility] 137 mcg 0-21 } [place] in ity of (0.1 %) 00:00: each [place] nasal spray 00 nostril in Co [facility]ical the Branch morning and 1 [place] in the evening. Use in each nostril as directed mupirocin 2 2021-08 Yes [id number] Apply to [facility] % ointment 0-21 area(s) 3 ity of 00:00: (three) [place] 00 times Medical daily. Branch levocetiriz 2021-08 Yes [id number] 5mg Take 1 [facility] ine 5 mg 0-21 tablet by ity of tablet 00:00: mouth [place] 00 every Medical evening. Branch montelukast 2021-08 Yes [id number] 10mg Take 1 [facility] (SINGULAIR) 0-21 tablet by ity of 10 mg 00:00: mouth in [place] tablet 00 the Medical morning. Branch azelastine 2021-08 Yes [id number] 1{spray Use 1 [facility] 137 mcg 0-21 } [place] in ity of (0.1 %) 00:00: each [place] nasal spray 00 nostril in Co dicnd the [place] morning and 1 [place] in the evening. Use in each nostril as directed mupirocin 2 2021-08 Yes [id number] Apply to [facility] % ointment 0-21 area(s) 3 ity of 00:00: (three) [place] 00 times Medical daily. Branch levocetiriz 2021-08 Yes [id number] 5mg Take 1 [facility] ine 5 mg 0-21 tablet by ity of tablet 00:00: mouth [place] 00 every Medical evening. Branch montelukast 2021-08 Yes [id number] 10mg Take 1 [facility] (SINGULAIR) 0-21 tablet by ity of 10 mg 00:00: mouth in [place] tablet 00 the Medical morning. Branch azelastine 2021-08 Yes [id number] 1{spray Use 1 [facility] 137 mcg 0-21 } [place] in ity of (0.1 %) 00:00: each [place] nasal spray 00 nostril in Co dical [facility] morning and 1 [place] in the evening. Use in each nostril as directed mupirocin 2 2021-08 Yes [id number] Apply to [facility] % ointment 0-21 area(s) 3 ity of 00:00: (three) [place] 00 times Medical daily. Branch levocetiriz 2021-08 Yes [id number] 5mg Take 1 [facility] ine 5 mg 0-21 tablet by ity of tablet 00:00: mouth [place] 00 every Medical evening. Branch montelukast 2021-08 Yes [id number] 10mg Take 1 [facility] (SINGULAIR) 0-21 tablet by ity of 10 mg 00:00: mouth in [place] tablet 00 the Medical morning. [place] azelastine 2021-08 Yes [id number] 1{spray Use 1 [facility] 137 mcg 0-21 } [place] in ity of (0.1 %) 00:00: each [place] nasal spray 00 nostril in [facility] the [place] morning and 1 [place] in the evening. Use in each nostril as directed mupirocin 2 2021-08 Yes [id number] Apply to [facility] % ointment 0-21 area(s) 3 ity of 00:00: (three) [place] 00 times Medical daily. [place] montelukast 2021-08 Yes [id number] 10mg Take 1 [facility] (SINGULAIR) 0-21 tablet by ity of 10 mg 00:00: mouth in [place] tablet 00 the Medical morning. [place] azelastine 2021-08 Yes [id number] 1{spray Use 1 [facility] 137 mcg 0-21 } [place] in ity of (0.1 %) 00:00: each [place] nasal spray 00 nostril in Co [facility] the [place] morning and 1 [place] in the evening. Use in each nostril as directed mupirocin 2 2021-08 Yes [id number] Apply to [facility] % ointment 0-21 area(s) 3 ity of 00:00: (three) [place] 00 times Medical daily. [place] montelukast 2021-08 Yes [id number] 10mg Take 1 [facility] (SINGULAIR) 0-21 tablet by ity of 10 mg 00:00: mouth in [place] tablet 00 the Medical morning. [place] azelastine 2021-08 Yes [id number] 1{spray Use 1 [facility] 137 mcg 0-21 } [place] in ity of (0.1 %) 00:00: each [place] nasal spray 00 nostril in [facility]ical the [place] morning and 1 [place] in the evening. Use in each nostril as directed levocetiriz 2021-08- No [id number] 5mg Take 1 [facility] ine 5 mg 0-21 - tablet by ity o f tablet 00:00: 00:00 mouth [place] 00 :00 every Medical evening. [place] ketorolac 2021-08 30mg 30 mg, Un[facility] rs (TORADOL) 0-05 10-05 Intramuscu ity of injection 22:00: 21:16 [place], ONCE, [place] 30 mg 00 :00 1 dose, On Medical Wed Branch 05/10/22 at 1700, Routine traMADoL 50 2021-08 Yes [id number] 50mg Take 1 Univ ers mg tablet 0-05 tablet by ity o f 00:00: mouth [place] 00 every 6 Medical (six) Branch hours as needed for Pain (scale 4-6). Indication s: acute pain traMADoL 50 2021-08 Yes [id number] 50mg Take 1 Univ ers mg tablet 0-05 tablet by ity o f 00:00: mouth [place] 00 every 6 Medical (six) Branch hours as needed for Pain (scale 4-6). Indication s: acute pain traMADoL 50 2021-08 Yes [id number] 50mg Take 1 [facility] ers mg tablet 0-05 tablet by ity o f 00:00: mouth [place] 00 every 6 Medical (six) Branch hours as needed for Pain (scale 4-6). Indication s: acute pain traMADoL 50 2021-08 Yes [id number] 50mg Take 1 [facility] ers mg tablet 0-05 tablet by ity o f 00:00: mouth [place] 00 every 6 Medical (six) Branch hours as needed for Pain (scale 4-6). Indication s: acute pain traMADoL 50 2021-08 Yes [id number] 50mg Take 1 [facility] ers mg tablet 0-05 tablet by ity o f 00:00: mouth [place] 00 every 6 Medical (six) Branch hours as needed for Pain (scale 4-6). Indication s: acute pain traMADoL 50 2021-08 Yes [id number] 50mg Take 1 [facility] ers mg tablet 0-05 tablet by ity o f 00:00: mouth [place] 00 every 6 Medical (six) Branch hours as needed for Pain (scale 4-6). Indication s: acute pain traMADoL 50 2021- Yes [id number] 50mg Take 1 [facility] ers mg tablet 0-05 tablet by ity o f 00:00: mouth [place] 00 every 6 Medical (six) Branch hours as needed for Pain (scale 4-6). Indication s: acute pain traMADoL 50 2021-08 Yes [id number] 50mg Take 1 [facility] ers mg tablet 0-05 tablet by ity o f 00:00: mouth [place] 00 every 6 Medical (six) Branch hours as needed for Pain (scale 4-6). Indication s: acute pain traMADoL 50 2021-08 Yes [id number] 50mg Take 1 [facility] ers mg tablet 0-05 tablet by ity o f 00:00: mouth [place] 00 every 6 Medical (six) Branch hours as needed for Pain (scale 4-6). Indication s: acute pain traMADoL 50 2021-08 Yes [id number] 50mg Take 1 [facility] ers mg tablet 0-05 tablet by ity o f 00:00: mouth [place] 00 every 6 Medical (six) Branch hours as needed for Pain (scale 4-6). Indication s: acute pain traMADoL 50 2021-08 Yes [id number] 50mg Take 1 [facility] ers mg tablet 0-05 tablet by ity o f 00:00: mouth [place] 00 every 6 Medical (six) Branch hours as needed for Pain (scale 4-6). Indication s: acute pain traMADoL 50 2021-08 Yes [id number] 50mg Take 1 [facility] ers mg tablet 0-05 tablet by ity o f 00:00: mouth [place] 00 every 6 Medical (six) Branch hours as needed for Pain (scale 4-6). Indication s: acute pain traMADoL 50 2021-08 Yes [id number] 50mg Take 1 [facility] ers mg tablet 0-05 tablet by ity o f 00:00: mouth [place] 00 every 6 Medical (six) Branch hours as needed for Pain (scale 4-6). Indication s: acute pain traMADoL 50 2021-08 Yes [id number] 50mg Take 1 [facility] ers mg tablet 0-05 tablet by ity o f 00:00: mouth [place] 00 every 6 Medical (six) Branch hours as needed for Pain (scale 4-6). Indication s: acute pain traMADoL 50 2021-08 Yes [id number] 50mg Take 1 [facility] ers mg tablet 0-05 tablet by ity o f 00:00: mouth [place] 00 every 6 Medical (six) Branch hours as needed for Pain (scale 4-6). Indication s: acute pain traMADoL 50 2021-08 Yes [id number] 50mg Take 1 [facility] ers mg tablet 0-05 tablet by ity o f 00:00: mouth [place] 00 every 6 Medical (six) Branch hours as needed for Pain (scale 4-6). Indication s: acute pain traMADoL 50 2021-08 Yes [id number] 50mg Take 1 [facility] ers mg tablet 0-05 tablet by ity o f 00:00: mouth [place] 00 every 6 Medical (six) Branch hours as needed for Pain (scale 4-6). Indication s: acute pain traMADoL 50 2021-08 Yes [id number] 50mg Take 1 [facility] ers mg tablet 0-05 tablet by ity o f 00:00: mouth [place] 00 every 6 Medical (six) Branch hours as needed for Pain (scale 4-6). Indication s: acute pain traMADoL 50 2021-08 Yes [id number] 50mg Take 1 [facility] ers mg tablet 0-05 tablet by ity o f 00:00: mouth [place] 00 every 6 Medical (six) Branch hours as needed for Pain (scale 4-6). Indication s: acute pain traMADoL 50 2021-08 Yes [id number] 50mg Take 1 [facility] ers mg tablet 0-05 tablet by ity o f 00:00: mouth [place] 00 every 6 Medical (six) Branch hours as needed for Pain (scale 4-6). Indication s: acute pain traMADoL 50 2021-08 Yes [id number] 50mg Take 1 [facility] ers mg tablet 0-05 tablet by ity o f 00:00: mouth [place] 00 every 6 Medical (six) Branch hours as needed for Pain (scale 4-6). Indication s: acute pain traMADoL 50 2021-08 Yes [id number] 50mg Take 1 [facility] ers mg tablet 0-05 tablet by ity o f 00:00: mouth [place] 00 every 6 Medical (six) Branch hours as needed for Pain (scale 4-6). Indication s: acute pain traMADoL 50 2021-08 Yes [id number] 50mg Take 1 [facility] ers mg tablet 0-05 tablet by ity o f 00:00: mouth [place] 00 every 6 Medical (six) Branch hours as needed for Pain (scale 4-6). Indication s: acute pain traMADoL 50 2021-08 Yes [id number] 50mg Take 1 [facility] ers mg tablet 0-05 tablet by ity o f 00:00: mouth [place] 00 every 6 Medical (six) Branch hours as needed for Pain (scale 4-6). Indication s: acute pain traMADoL 50 2021-08 Yes [id number] 50mg Take 1 [facility] ers mg tablet 0-05 tablet by ity o f 00:00: mouth [place] 00 every 6 Medical (six) Branch hours as needed for Pain (scale 4-6). Indication s: acute pain traMADoL 50 2021-08 Yes [id number] 50mg Take 1 [facility] ers mg tablet 0-05 tablet by ity o f 00:00: mouth [place] 00 every 6 Medical (six) Branch hours as needed for Pain (scale 4-6). Indication s: acute pain traMADoL 50 2021-08 Yes [id number] 50mg Take 1 [facility] ers mg tablet 0-05 tablet by ity o f 00:00: mouth [place] 00 every 6 Medical (six) Branch hours as needed for Pain (scale 4-6). Indication s: acute pain traMADoL 50 2021-08 Yes [id number] 50mg Take 1 [facility] ers mg tablet 0-05 tablet by ity o f 00:00: mouth [place] 00 every 6 Medical (six) Branch hours as needed for Pain (scale 4-6). Indication s: acute pain traMADoL 50 2021-08 Yes [id number] 50mg Take 1 [facility] ers mg tablet 0-05 tablet by ity o f 00:00: mouth [place] 00 every 6 Medical (six) Branch hours as needed for Pain (scale 4-6). Indication s: acute pain traMADoL 50 2021-08 Yes [id number] 50mg Take 1 [facility] ers mg tablet 0-05 tablet by ity o f 00:00: mouth [place] 00 every 6 Medical (six) Branch hours as needed for Pain (scale 4-6). Indication s: acute pain traMADoL 50 2021-08 Yes [id number] 50mg Take 1 [facility] ers mg tablet 0-05 tablet by ity o f 00:00: mouth [place] 00 every 6 Medical (six) Branch hours as needed for Pain (scale 4-6). Indication s: acute pain traMADoL 50 2021-08 Yes 4647 50mg Take 1 [facility] ers mg tablet 0-05 tablet by ity o f 00:00: mouth [place] 00 every 6 Medical (six) Branch hours as needed for Pain (scale 4-6). Indication s: acute pain traMADoL 50 2021-08 Yes 4647 50mg Take 1 [facility] ers mg tablet 0-05 tablet by ity o f 00:00: mouth [place] 00 every 6 Medical (six) Branch hours as needed for Pain (scale 4-6). Indication s: acute pain traMADoL 50 2021-08 Yes 4647 50mg Take 1 [facility] ers mg tablet 0-05 tablet by ity o f 00:00: mouth [place] 00 every 6 Medical (six) Branch hours as needed for Pain (scale 4-6). Indication s: acute pain traMADoL 50 2021-08 Yes 4647 50mg Take 1 [facility] ers mg tablet 0-05 tablet by ity o f 00:00: mouth [place] 00 every 6 Medical (six) Branch hours as needed for Pain (scale 4-6). Indication s: acute pain traMADoL 50 2021-08 Yes 4647 50mg Take 1 [facility] ers mg tablet 0-05 tablet by ity o f 00:00: mouth [place] 00 every 6 Medical (six) Branch hours as needed for Pain (scale 4-6). Indication s: acute pain traMADoL 50 2021-08 Yes 4647 50mg Take 1 [facility] ers mg tablet 0-05 tablet by ity o f 00:00: mouth [place] 00 every 6 Medical (six) Branch hours as needed for Pain (scale 4-6). Indication s: acute pain traMADoL 50 2021-08 Yes 4647 50mg Take 1 [facility] ers mg tablet 0-05 tablet by ity o f 00:00: mouth [place] 00 every 6 Medical (six) Branch hours as needed for Pain (scale 4-6). Indication s: acute pain traMADoL 50 2021-08 Yes 4647 50mg Take 1 [facility] ers mg tablet 0-05 tablet by ity o f 00:00: mouth [place] 00 every 6 Medical (six) Branch hours as needed for Pain (scale 4-6). Indication s: acute pain traMADoL 50 2021-08 Yes 4647 50mg Take 1 [facility] ers mg tablet 0-05 tablet by ity o f 00:00: mouth [place] 00 every 6 Medical (six) Branch hours as needed for Pain (scale 4-6). Indication s: acute pain traMADoL 50 2021-08 Yes 4647 50mg Take 1 [facility] ers mg tablet 0-05 tablet by ity o f 00:00: mouth [place] 00 every 6 Medical (six) Branch hours as needed for Pain (scale 4-6). Indication s: acute pain traMADoL 50 2021-08 Yes 4647 50mg Take 1 [facility] ers mg tablet 0-05 tablet by ity o f 00:00: mouth [place] 00 every 6 Medical (six) Branch hours as needed for Pain (scale 4-6). Indication s: acute pain traMADoL 50 2021-08 Yes 4647 50mg Take 1 [facility] ers mg tablet 0-05 tablet by ity o f 00:00: mouth [place] 00 every 6 Medical (six) Branch hours as needed for Pain (scale 4-6). Indication s: acute pain traMADoL 50 2021- Yes 4647 50mg Take 1 [facility] ers mg tablet 0-05 tablet by ity o f 00:00: mouth [place] 00 every 6 Medical (six) Branch hours as needed for Pain (scale 4-6). Indication s: acute pain traMADoL 50 2021-08 Yes 4647 50mg Take 1 [facility] ers mg tablet 0-05 tablet by ity o f 00:00: mouth [place] 00 every 6 Medical (six) Branch hours as needed for Pain (scale 4-6). Indication s: acute pain traMADoL 50 2021-08 Yes [id number] 50mg Take 1 [facility] ers mg tablet 0-05 tablet by ity o f 00:00: mouth [place] 00 every 6 Medical (six) Branch hours as needed for Pain (scale 4-6). Indication s: acute pain traMADoL 50 2021-08 Yes 4647 50mg Take 1 [facility] tablet [facility]-05 tablet by [facility] o f 00:00: mouth [place] 00 every 6 Medical (six) Branch hours as needed for Pain (scale 4-6). Indication s: acute pain traMADoL 50 2021-08 Yes 4647 50mg Take 1 [facility] tablet 0-05 tablet by [facility] o f 00:00: mouth [place] 00 every 6 Medical (six) Branch hours as needed for Pain (scale 4-6). Indication s: acute pain traMADoL 50 2021-08 Yes 4647 50mg Take 1 [facility] tablet 0-05 tablet by [facility] o f 00:00: mouth [place] 00 every 6 Medical (six) Branch hours as needed for Pain (scale 4-6). Indication s: acute pain traMADoL 50 2021-08 Yes 4647 50mg Take 1 [facility] tablet 0-05 tablet by [facility] o f 00:00: mouth [place] 00 every 6 Medical (six) Branch hours as needed for Pain (scale 4-6). Indication s: acute pain traMADoL 50 2021-08 Yes 4647 50mg Take 1 [facility] tablet 0-05 tablet by [facility] o f 00:00: mouth [place] 00 every 6 Medical (six) Branch hours as needed for Pain (scale 4-6). Indication s: acute pain traMADoL 50 2021-08 Yes 4647 50mg Take 1 [facility] tablet 0-05 tablet by [facility] o f 00:00: mouth [place] 00 every 6 Medical (six) Branch hours as needed for Pain (scale 4-6). Indication s: acute pain traMADoL 50 2021-08 Yes 4647 50mg Take 1 [facility] tablet 0-05 tablet by [facility] o f 00:00: mouth [place] 00 every 6 [facility] (six) Branch hours as needed for Pain (scale 4-6). Indication s: acute pain traMADoL 50 2021-08 Yes 4647 50mg Take 1 [facility] tablet 0-05 tablet by [facility] o f 00:00: mouth [place] 00 every 6 Medical (six) Branch hours as needed for Pain (scale 4-6). Indication s: acute pain traMADoL 50 2021-08 Yes 4647 50mg Take 1 [facility] tablet 0-05 tablet by [facility] o f 00:00: mouth [place] 00 every 6 [facility] (six) Branch hours as needed for Pain (scale 4-6). Indication s: acute pain traMADoL 50 2021-08 Yes 4647 50mg Take 1 [facility] tablet 0-05 tablet by [facility] o f 00:00: mouth [place] 00 every 6 [facility] (six) Branch hours as needed for Pain (scale 4-6). Indication s: acute pain traMADoL 50 2021-08 Yes 4647 50mg Take 1 [facility] tablet 0-05 tablet by [facility] f 00:00: mouth [place] 00 every 6 Medical (six) Branch hours as needed for Pain (scale 4-6). Indication s: acute pain traMADoL 50 2021-08 Yes 4647 50mg Take 1 [facility] tablet 0-05 tablet by [facility] f 00:00: mouth [place] 00 every 6 [facility] (six) Branch hours as needed for Pain (scale 4-6). Indication s: acute pain traMADoL 50 2021- Yes 4647 50mg Take 1 [facility] tablet 0-05 tablet by [facility] f 00:00: mouth [place] 00 every 6 [facility] (six) Branch hours as needed for Pain (scale 4-6). Indication s: acute pain traMADoL 50 2021-08 Yes 4647 50mg Take 1 [facility] tablet 0-05 tablet by [facility] f 00:00: mouth [place] 00 every 6 [facility] (six) [facility] hours as needed for Pain (scale 4-6). Indication s: acute pain traMADoL 50 2021-08 Yes 4647 50mg Take 1 [facility] tablet 0-05 tablet by [facility] f 00:00: mouth [place] 00 every 6 [facility] (six) Branch hours as needed for Pain (scale 4-6). Indication s: acute pain traMADoL 50 2021-08 Yes 4647 50mg Take 1 [facility] tablet 0-05 tablet by [facility] o f 00:00: mouth [place] 00 every 6 [facility] (six) Branch hours as needed for Pain (scale 4-6). Indication s: acute pain traMADoL 50 2021-08 Yes 4647 50mg Take 1 [facility] tablet 0-05 tablet by [facility] o f 00:00: mouth [place] 00 every 6 [facility] (six) Branch hours as needed for Pain (scale 4-6). Indication s: acute pain traMADoL 50 2021-08 Yes 4647 50mg Take 1 [facility] tablet 0-05 tablet by [facility] o f 00:00: mouth [place] 00 every 6 [facility] (six) Branch hours as needed for Pain (scale 4-6). Indication s: acute pain traMADoL 50 2021-08 Yes 4647 50mg Take 1 [facility] tablet 0-05 tablet by [facility] o f 00:00: mouth [place] 00 every 6 Medical (six) Branch hours as needed for Pain (scale 4-6). Indication s: acute pain traMADoL 50 2021-08 Yes 4647 50mg Take 1 [facility] tablet 0-05 tablet by [facility] o f 00:00: mouth [place] 00 every 6 Medical (six) Branch hours as needed for Pain (scale 4-6). Indication s: acute pain traMADoL 50 2021-08 Yes 4647 50mg Take 1 [facility] tablet 0-05 tablet by [facility] o f 00:00: mouth [place] 00 every 6 Medical (six) Branch hours as needed for Pain (scale 4-6). Indication s: acute pain traMADoL 50 2021-08 Yes 4647 50mg Take 1 [facility] tablet 0-05 tablet by [facility] o f 00:00: mouth [place] 00 every 6 Medical (six) Branch hours as needed for Pain (scale 4-6). Indication s: acute pain traMADoL 50 2021-08 Yes 4647 50mg Take 1 [facility] tablet 0-05 tablet by [facility] o f 00:00: mouth [place] 00 every 6 Medical (six) Branch hours as needed for Pain (scale 4-6). Indication s: acute pain traMADoL 50 2021-08 Yes 4647 50mg Take 1 [facility] tablet 0-05 tablet by [facility] o f 00:00: mouth [place] 00 every 6 Medical (six) Branch hours as needed for Pain (scale 4-6). Indication s: acute pain traMADoL 50 2021-08 Yes 4647 50mg Take 1 [facility] tablet 0-05 tablet by [facility] o f 00:00: mouth [place] 00 every 6 Medical (six) Branch hours as needed for Pain (scale 4-6). Indication s: acute pain traMADoL 50 2021-08 Yes 4647 50mg Take 1 [facility] tablet 0-05 tablet by [facility] o f 00:00: mouth [place] 00 every 6 Medical (six) Branch hours as needed for Pain (scale 4-6). Indication s: acute pain traMADoL 50 2021-08 Yes 4647 50mg Take 1 [facility] tablet 0-05 tablet by [facility] o f 00:00: mouth [place] 00 every 6 Medical (six) Branch hours as needed for Pain (scale 4-6). Indication s: acute pain traMADoL 50 2021-08 Yes 4647 50mg Take 1 [facility] tablet 0-05 tablet by [facility] o f 00:00: mouth [place] 00 every 6 Medical (six) Branch hours as needed for Pain (scale 4-6). Indication s: acute pain traMADoL 50 2021-08 Yes 4647 50mg Take 1 [facility] tablet 0-05 tablet by [facility] o f 00:00: mouth [place] 00 every 6 Medical (six) Branch hours as needed for Pain (scale 4-6). Indication s: acute pain traMADoL 50 2021-08 Yes 4647 50mg Take 1 [facility] tablet 0-05 tablet by [facility] o f 00:00: mouth [place] 00 every 6 Medical (six) Branch hours as needed for Pain (scale 4-6). Indication s: acute pain traMADoL 50 2021-08 Yes 4647 50mg Take 1 [facility] tablet 0-05 tablet by [facility] o f 00:00: mouth [place] 00 every 6 Medical (six) Branch hours as needed for Pain (scale 4-6). Indication s: acute pain traMADoL 50 2021-08 Yes 4647 50mg Take 1 [facility] tablet 0-05 tablet by [facility] o f 00:00: mouth [place] 00 every 6 Medical (six) Branch hours as needed for Pain (scale 4-6). Indication s: acute pain traMADoL 50 2021-08 Yes 4647 50mg Take 1 [facility] tablet 0-05 tablet by [facility] o f 00:00: mouth [place] 00 every 6 Medical (six) Branch hours as needed for Pain (scale 4-6). Indication s: acute pain traMADoL 50 2021-08 Yes 4647 50mg Take 1 [facility] tablet 0-05 tablet by [facility] o f 00:00: mouth [place] 00 every 6 Medical (six) Branch hours as needed for Pain (scale 4-6). Indication s: acute pain traMADoL 50 2021-08 Yes 4647 50mg Take 1 [facility] tablet 0-05 tablet by [facility] o f 00:00: mouth [place] 00 every 6 Medical (six) Branch hours as needed for Pain (scale 4-6). Indication s: acute pain traMADoL 50 2021-08 Yes 4647 50mg Take 1 [facility] tablet 0-05 tablet by [facility] o f 00:00: mouth [place] 00 every 6 Medical (six) Branch hours as needed for Pain (scale 4-6). Indication s: acute pain traMADoL 50 2021-08 Yes 4647 50mg Take 1 [facility] tablet 0-05 tablet by [facility] o f 00:00: mouth [place] 00 every 6 Medical (six) Branch hours as needed for Pain (scale 4-6). Indication s: acute pain traMADoL 50 2021-08 Yes 4647 50mg Take 1 [facility] tablet 0-05 tablet by [facility] o f 00:00: mouth [place] 00 every 6 Medical (six) Branch hours as needed for Pain (scale 4-6). Indication s: acute pain traMADoL 50 2021-08 Yes 4647 50mg Take 1 [facility] tablet 0-05 tablet by [facility] o f 00:00: mouth [place] 00 every 6 Medical (six) Branch hours as needed for Pain (scale 4-6). Indication s: acute pain traMADoL 50 2021-08 Yes 4647 50mg Take 1 [facility] tablet 0-05 tablet by [facility] o f 00:00: mouth [place] 00 every 6 Medical (six) Branch hours as needed for Pain (scale 4-6). Indication s: acute pain traMADoL 50 2021- Yes 4647 50mg Take 1 [facility] tablet 0-05 tablet by [facility] o f 00:00: mouth [place] 00 every 6 Medical (six) Branch hours as needed for Pain (scale 4-6). Indication s: acute pain traMADoL 50 2021-083- No 4647 50mg Take 1 [facility] tablet 0-05 02-28 tablet by [facility] of 00:00: 00:00 mouth [place] 00 :00 every 6 Medical (six) Branch hours as needed for Pain (scale 4-6). Indication s: acute pain [facility] Yes [id number] INJECT 200 [facility] 200 9-26 MG UNDER [facility]y of mg/1.14 mL 00:00: [facility] 00 EVERY Medical syringe OTHER WEEK Branch [facility] Yes [id number] INJECT 200 [facility] 200 9-26 MG UNDER [facility]y of mg/1.14 mL 00:00: [facility] 00 EVERY Medical syringe OTHER WEEK Branch [facility] Yes [id number] INJECT 200 [facility] 200 9-26 MG UNDER [facility] of mg/1.14 mL 00:00: [facility] 00 EVERY Medical syringe OTHER WEEK Branch [facility] Yes [id number] INJECT 200 [facility] 200 9-26 MG UNDER [facility]y of mg/1.14 mL 00:00: THE [facility] 00 EVERY Medical syringe OTHER WEEK Branch [facility] Yes [id number] INJECT 200 [facility] 200 9-26 MG UNDER [facility] of mg/1.14 mL 00:00: THE [facility] 00 EVERY Medical syringe OTHER WEEK Branch [facility] Yes [id number] INJECT 200 [facility] 200 9-26 MG UNDER [facility] of mg/1.14 mL 00:00: THE [facility] 00 EVERY Medical syringe OTHER WEEK Branch [facility] Yes [id number] INJECT 200 [facility] 200 9-26 [facility] UNDER [facility] of mg/1.14 mL 00:00: THE SK[facility] 00 EVERY [facility] syringe OTHER [facility] Yes [id number] INJECT 200 [facility] 200 9-26 MG UNDER [facility]y of mg/1.14 mL 00:00: THE [facility] 00 EVERY Medical syringe OTHER WEEK [facility] Yes [id number] INJECT 200 [facility] 200 9-26 MG UNDER [facility]y of mg/1.14 mL 00:00: THE SK[facility] 00 EVERY Medical syringe OTHER WEEK [facility] Yes [id number] INJECT 200 [facility] 200 9-26 MG UNDER ity of mg/1.14 mL 00:00: THE SK[facility] 00 EVERY Medical syringe OTHER WEEK [facility] Yes [id number] INJECT 200 [facility] 200 9-26 MG UNDER ity of mg/1.14 mL 00:00: THE SK[facility] 00 EVERY Medical syringe OTHER WEEK [facility] Yes [id number] INJECT 200 [facility] 200 9-26 MG UNDER ity of mg/1.14 mL 00:00: THE SK[facility] 00 EVERY Medical syringe OTHER WEEK [facility] Yes [id number] INJECT 200 [facility] 200 9-26 MG UNDER [facility]y of mg/1.14 mL 00:00: THE SK[facility] 00 EVERY Medical syringe OTHER WEEK [facility] Yes [id number] INJECT 200 [facility] 200 9-26 MG UNDER ity of mg/1.14 mL 00:00: THE SK[facility] 00 EVERY Medical syringe OTHER WEEK [facility] Yes [id number] INJECT 200 [facility] 200 9-26 MG UNDER [facility]y of mg/1.14 mL 00:00: THE SKIN [facility] 00 EVERY Medical syringe OTHER WEEK [facility] Yes [id number] INJECT 200 [facility] 200 9-26 MG UNDER ity of mg/1.14 mL 00:00: THE SKIN [facility] 00 EVERY Medical syringe OTHER WEEK [facility] Yes [id number] INJECT 200 [facility] 200 9-26 MG UNDER ity of mg/1.14 mL 00:00: THE SKIN [facility] 00 EVERY Medical syringe OTHER WEEK [facility] Yes [id number] INJECT 200 [facility] 200 9-26 MG UNDER ity of mg/1.14 mL 00:00: THE SK[facility] 00 EVERY Medical syringe OTHER WEEK [facility] Yes [id number] INJECT 200 [facility] 200 9-26 MG UNDER ity of mg/1.14 mL 00:00: THE SKIN [facility] 00 EVERY Medical syringe OTHER WEEK [facility] Yes [id number] INJECT 200 [facility] 200 9-26 MG UNDER ity of mg/1.14 mL 00:00: THE SKIN [facility] 00 EVERY Medical syringe OTHER WEEK [facility] Yes [id number] INJECT 200 [facility] 200 9-26 MG UNDER ity of mg/1.14 mL 00:00: THE SK[facility] 00 EVERY Medical syringe OTHER WEEK [facility] Yes [id number] INJECT 200 [facility] 200 9-26 MG UNDER ity of mg/1.14 mL 00:00: THE SK[facility] 00 EVERY Medical syringe OTHER WEEK [facility] Yes [id number] INJECT 200 [facility] 200 9-26 MG UNDER ity of mg/1.14 mL 00:00: THE SKIN [facility] 00 EVERY Medical syringe OTHER WEEK Branch [facility] Yes [id number] INJECT 200 [facility] 200 9-26 MG UNDER ity of mg/1.14 mL 00:00: THE SK[facility] 00 EVERY Medical syringe OTHER WEEK Branch [facility] Yes [id number] INJECT 200 [facility] 200 9-26 MG UNDER ity of mg/1.14 mL 00:00: THE SK[facility] 00 EVERY Medical syringe OTHER WEEK Branch [facility] Yes [id number] INJECT 200 [facility] 200 9-26 MG UNDER ity of mg/1.14 mL 00:00: THE SK[facility] 00 EVERY Medical syringe OTHER WEEK Branch [facility] Yes [id number] INJECT 200 [facility] 200 9-26 MG UNDER ity of mg/1.14 mL 00:00: THE SKIN [facility] 00 EVERY Medical syringe OTHER WEEK Branch [facility] Yes [id number] INJECT 200 [facility] 200 9-26 MG UNDER ity of mg/1.14 mL 00:00: THE SKIN [facility] 00 EVERY Medical syringe OTHER WEEK Branch [facility] Yes [id number] INJECT 200 [facility] 200 9-26 MG UNDER ity of mg/1.14 mL 00:00: THE SKIN [facility] 00 EVERY Medical syringe OTHER WEEK Branch [facility] Yes [id number] INJECT 200 [facility] 200 9-26 MG UNDER ity of mg/1.14 mL 00:00: THE SKIN [facility] 00 EVERY Medical syringe OTHER WEEK Branch [facility] Yes [id number] INJECT 200 [facility] 200 9-26 MG UNDER ity of mg/1.14 mL 00:00: THE SKIN [facility] 00 EVERY Medical syringe OTHER WEEK Branch [facility] Yes [id number] INJECT 200 [facility] 200 9-26 MG UNDER ity of mg/1.14 mL 00:00: THE SKIN [facility] 00 EVERY Medical syringe OTHER WEEK Branch [facility] Yes [id number] INJECT 200 [facility] 200 9-26 MG UNDER ity of mg/1.14 mL 00:00: THE SKIN [facility] 00 EVERY Medical syringe OTHER WEEK Branch [facility] Yes [id number] INJECT 200 [facility] 200 9-26 MG UNDER ity of mg/1.14 mL 00:00: THE SKIN [facility] 00 EVERY Medical syringe OTHER WEEK Branch [facility] Yes [id number] INJECT 200 [facility] 200 9-26 MG UNDER ity of mg/1.14 mL 00:00: THE SKIN [facility] 00 EVERY Medical syringe OTHER WEEK Branch [facility] Yes [id number] INJECT 200 [facility] 200 9-26 MG UNDER ity of mg/1.14 mL 00:00: THE SKIN [facility] 00 EVERY Medical syringe OTHER WEEK Branch [facility] Yes [id number] INJECT 200 [facility] 200 9-26 MG UNDER ity of mg/1.14 mL 00:00: THE SKIN [facility] 00 EVERY Medical syringe OTHER WEEK Branch [facility] 2021-0 Yes [id number] INJECT 200 [facility] 200 9-26 MG UNDER ity of mg/1.14 mL 00:00: THE SKIN [facility] 00 EVERY Medical syringe OTHER WEEK Branch [facility] Yes [id number] INJECT 200 [facility] 200 9-26 MG UNDER ity of mg/1.14 mL 00:00: THE SKIN [facility] 00 EVERY Medical syringe OTHER WEEK Branch [facility] Yes [id number] INJECT 200 [facility] 200 9-26 MG UNDER ity of mg/1.14 mL 00:00: THE SKIN [facility] 00 EVERY Medical syringe OTHER WEEK Branch [facility] Yes [id number] INJECT 200 [facility] 200 9-26 MG UNDER ity of mg/1.14 mL 00:00: THE SKIN [facility] 00 EVERY Medical syringe OTHER WEEK [facility] Yes [id number] INJECT 200 [facility] 200 9-26 MG UNDER ity of mg/1.14 mL 00:00: THE SKIN [facility] 00 EVERY Medical syringe OTHER WEEK [facility] Yes [id number] INJECT 200 [facility] 200 9-26 MG UNDER ity of mg/1.14 mL 00:00: THE SKIN [facility] 00 EVERY Medical syringe OTHER WEEK [facility] Yes [id number] INJECT 200 [facility] 200 9-26 MG UNDER ity of mg/1.14 mL 00:00: THE SKIN [facility] 00 EVERY [facility] [id number] INJECT 200 [facility] 200 9-26 MG UNDER ity of mg/1.14 mL 00:00: THE SKIN [facility] 00 EVERY Medical syringe OTHER WEEK [facility] Yes [id number] INJECT 200 [facility] 200 9-26 MG UNDER ity of mg/1.14 mL 00:00: THE SKIN [facility] 00 EVERY [facility] syringe [facility] [id number] INJECT 200 [facility] 200 9-26 MG UNDER ity of mg/1.14 mL 00:00: THE SKIN [facility] 00 EVERY Medical syringe [facility] [id number] INJECT 200 [facility] 200 9-26 MG UNDER ity of mg/1.14 mL 00:00: THE SKIN [facility] 00 EVERY Medical syringe [facility]EEK [facility] [id number] INJECT 200 [facility] 200 9-26 MG UNDER ity of mg/1.14 mL 00:00: THE SKIN [facility] 00 EVERY Medical syringe OTHER WEEK Branch [facility] Yes [id number] INJECT 200 [facility] 200 9-26 MG UNDER ity of mg/1.14 mL 00:00: THE SKIN [facility] 00 EVERY Medical syringe OTHER WEEK Branch [facility] Yes [id number] INJECT 200 [facility] 200 9-26 MG UNDER ity of mg/1.14 mL 00:00: THE SKIN [facility] 00 EVERY Medical syringe OTHER WEEK Branch [facility] Yes [id number] INJECT 200 [facility] 200 9-26 MG UNDER ity of mg/1.14 mL 00:00: THE SKIN [facility] 00 EVERY Medical syringe OTHER WEEK Branch [facility] Yes [id number] INJECT 200 [facility] 200 9-26 MG UNDER ity of mg/1.14 mL 00:00: THE SKIN [facility] 00 EVERY Medical syringe OTHER WEEK [facility] [id number] INJECT 200 [facility] 200 9-26 MG UNDER ity of mg/1.14 mL 00:00: THE SKIN [facility] 00 EVERY Medical syringe OTHER WEEK [facility] [id number] INJECT 200 [facility] 200 9-26 MG UNDER ity of mg/1.14 mL 00:00: THE SKIN [facility] 00 EVERY Medical syringe OTHER WEEK Branch [facility] Yes [id number] INJECT 200 [facility] 200 9-26 MG UNDER ity of mg/1.14 mL 00:00: THE SKIN [facility] 00 EVERY Medical syringe OTHER WEEK [facility] [id number] INJECT 200 [facility] 200 9-26 MG UNDER ity of mg/1.14 mL 00:00: THE SKIN [facility] 00 EVERY Medical syringe OTHER WEEK [facility] Yes [id number] INJECT 200 [facility] 200 9-26 MG UNDER ity of mg/1.14 mL 00:00: THE SKIN [facility] 00 EVERY Medical syringe OTHER WEEK Branch [facility] Yes [id number] INJECT 200 [facility] 200 9-26 MG UNDER ity of mg/1.14 mL 00:00: THE SKIN [facility] 00 EVERY Medical syringe OTHER WEEK Branch [facility] Yes [id number] INJECT 200 [facility] 200 9-26 MG UNDER ity of mg/1.14 mL 00:00: THE SKIN [facility] 00 EVERY Medical syringe OTHER WEEK Branch [facility] Yes [id number] INJECT 200 [facility] 200 9-26 MG UNDER ity of mg/1.14 mL 00:00: THE SKIN [facility] 00 EVERY Medical syringe OTHER WEEK Branch [facility] Yes [id number] INJECT 200 [facility] 200 9-26 MG UNDER ity of mg/1.14 mL 00:00: THE SKIN [facility] 00 EVERY Medical syringe OTHER WEEK Branch [facility] Yes [id number] INJECT 200 [facility] 200 9-26 MG UNDER ity of mg/1.14 mL 00:00: THE SKIN [facility] 00 EVERY Medical syringe OTHER WEEK Branch [facility] Yes [id number] INJECT 200 [facility] 200 9-26 MG UNDER ity of mg/1.14 mL 00:00: THE SKIN [facility] 00 EVERY Medical syringe OTHER WEEK Branch [facility] Yes [id number] INJECT 200 [facility] 200 9-26 MG UNDER ity of mg/1.14 mL 00:00: THE SKIN [facility] 00 EVERY Medical syringe OTHER WEEK Branch [facility] Yes [id number] INJECT 200 [facility] 200 9-26 MG UNDER ity of mg/1.14 mL 00:00: THE SKIN [facility] 00 EVERY Medical syringe OTHER WEEK Branch [facility] Yes [id number] INJECT 200 [facility] 200 9-26 MG UNDER ity of mg/1.14 mL 00:00: THE SKIN [facility] 00 EVERY Medical syringe OTHER WEEK Branch [facility] Yes [id number] INJECT 200 [facility] 200 9-26 MG UNDER ity of mg/1.14 mL 00:00: THE SKIN [facility] 00 EVERY Medical syringe OTHER WEEK Branch [facility] 0 Yes [id number] INJECT 200 [facility] 200 9-26 MG UNDER ity of mg/1.14 mL 00:00: THE SKIN [facility] 00 EVERY Medical syringe OTHER WEEK Branch [facility] Yes [id number] INJECT 200 [facility] 200 9-26 MG UNDER ity of mg/1.14 mL 00:00: THE SKIN [facility] 00 EVERY Medical syringe OTHER WEEK Branch [facility] Yes [id number] INJECT 200 [facility] 200 9-26 MG UNDER ity of mg/1.14 mL 00:00: THE SKIN [facility] 00 EVERY Medical syringe OTHER WEEK Branch [facility] Yes [id number] INJECT 200 [facility] 200 9-26 MG UNDER ity of mg/1.14 mL 00:00: THE SKIN [facility] 00 EVERY Medical syringe OTHER WEEK Branch [facility] Yes [id number] INJECT 200 [facility] 200 9-26 MG UNDER ity of mg/1.14 mL 00:00: THE SKIN [facility] 00 EVERY Medical syringe OTHER WEEK Branch [facility] Yes [id number] INJECT 200 [facility] 200 9-26 MG UNDER ity of mg/1.14 mL 00:00: THE SKIN [facility] 00 EVERY Medical syringe OTHER WEEK Branch [facility] Yes [id number] INJECT 200 [facility] 200 9-26 MG UNDER ity of mg/1.14 mL 00:00: THE SKIN [facility] 00 EVERY Medical syringe OTHER WEEK Branch [facility] Yes [id number] INJECT 200 [facility] 200 9-26 MG UNDER ity of mg/1.14 mL 00:00: THE SKIN [facility] 00 EVERY Medical syringe OTHER WEEK Branch [facility] Yes [id number] INJECT 200 [facility] 200 9-26 MG UNDER ity of mg/1.14 mL 00:00: THE SKIN [facility] 00 EVERY Medical syringe OTHER WEEK Branch [facility] Yes [id number] INJECT 200 [facility] 200 9-26 MG UNDER ity of mg/1.14 mL 00:00: THE SKIN [facility] 00 EVERY Medical syringe OTHER WEEK Branch [facility] Yes [id number] INJECT 200 [facility] 200 9-26 MG UNDER ity of mg/1.14 mL 00:00: THE SKIN [facility] 00 EVERY Medical syringe OTHER WEEK Branch [facility] Yes [id number] INJECT 200 [facility] 200 9-26 MG UNDER ity of mg/1.14 mL 00:00: THE SKIN [facility] 00 EVERY Medical syringe OTHER WEEK Branch [facility] Yes [id number] INJECT 200 [facility] 200 9-26 MG UNDER ity of mg/1.14 mL 00:00: THE SKIN [facility] 00 EVERY Medical syringe OTHER WEEK Branch [facility] Yes [id number] INJECT 200 [facility] 200 9-26 MG UNDER ity of mg/1.14 mL 00:00: THE SKIN [facility] 00 EVERY Medical syringe OTHER WEEK Branch [facility] Yes [id number] INJECT 200 [facility] 200 9-26 MG UNDER ity of mg/1.14 mL 00:00: THE SKIN [facility] 00 EVERY Medical syringe OTHER WEEK Branch [facility] Yes [id number] INJECT 200 [facility] 200 9-26 MG UNDER ity of mg/1.14 mL 00:00: THE SKIN [facility] as [facility] 00 EVERY Medical syringe OTHER WEEK Branch [facility] [facility] [id number] INJECT 200 [facility] SYRINGE 200 9-26 MG UNDER ity of mg/1.14 mL 00:00: THE SKIN [place] 00 EVERY Medical syringe OTHER WEEK [facility] Yes [id number] INJECT 200 [facility] SYRINGE 200 9-26 MG UNDER ity of mg/1.14 mL 00:00: THE SKIN [place] 00 EVERY Medical syringe OTHER WEEK [facility] Yes [id number] INJECT 200 [facility] SYRINGE 200 9-26 MG UNDER ity of mg/1.14 mL 00:00: THE SKIN [place] 00 EVERY Medical syringe OTHER WEEK [facility] Yes [id number] INJECT 200 [facility] SYRINGE 200 9-26 MG UNDER ity of mg/1.14 mL 00:00: THE SKIN [place] 00 EVERY Medical syringe OTHER WEEK [facility] Yes [id number] INJECT 200 [facility] SYRINGE 200 9-26 MG UNDER ity of mg/1.14 mL 00:00: THE SKIN [place] 00 EVERY Medical syringe OTHER WEEK Branch DUPIXENT 0 Yes [id number] INJECT 200 [facility] SYRINGE 200 9-26 MG UNDER ity of mg/1.14 mL 00:00: THE SKIN [place] 00 EVERY Medical syringe OTHER WEEK Branch [facility] Yes [id number] INJECT 200 [facility] SYRINGE 200 9-26 MG UNDER ity of mg/1.14 mL 00:00: THE SKIN [place] 00 EVERY Medical syringe OTHER WEEK Branch DUPIXENT Yes [id number] INJECT 200 [facility] SYRINGE 200 9-26 MG UNDER ity of mg/1.14 mL 00:00: THE SKIN [place] 00 EVERY Medical syringe OTHER WEEK Branch DUPIXENT Yes [id number] INJECT 200 [facility] SYRINGE 200 9-26 MG UNDER ity of mg/1.14 mL 00:00: THE SKIN [place] 00 EVERY Medical syringe OTHER WEEK Branch DUPIXENT Yes [id number] INJECT 200 [facility] SYRINGE 200 9-26 MG UNDER ity of mg/1.14 mL 00:00: THE SKIN [place] 00 EVERY Medical syringe OTHER WEEK Branch estradioL 2021- No 2mg Univers (ESTRING) 04-06 ity of vaginal 23:00: 22:07 [place] ring 2 mg 00 :00 [facility] estradioL 2021- No 2mg 2 mg, Univer s (ESTRING) 04-06 Vaginal, ity o f vaginal 23:00: 22:07 ONCE, 1 [place] ring 2 mg 00 :00 dose, On [facility] 04/06/22 Branch at 1800, Routine estradioL 2021- No 2mg Univers (ESTRING) 04-06 ity of vaginal 23:00: 22:07 [place] ring 2 mg 00 :00 [facility] estradioL 2021- No 2mg 2 mg, Univer s (ESTRING) 04-06 Vaginal, ity o f vaginal 23:00: 22:07 ONCE, 1 [place] ring 2 mg 00 :00 dose, On Medica l [facility] 04/06/22 Branch at 1800, Routine DUPIXENT Yes [id number] INJECT 200 [facility] SYRINGE 200 8-15 MG UNDER ity of mg/1.14 mL 00:00: THE SKIN [place] 00 EVERY Medical syringe OTHER WEEK Branch DUPIXENT Yes [id number] INJECT 200 [facility] SYRINGE 200 8-15 MG UNDER ity of mg/1.14 mL 00:00: THE SKIN [place] 00 EVERY Medical syringe OTHER WEEK [facility] Yes [id number] INJECT 200 [facility] SYRINGE 200 8-15 MG UNDER ity of mg/1.14 mL 00:00: THE SKIN [place] 00 EVERY Medical syringe OTHER WEEK [facility] Yes [id number] INJECT 200 [facility] SYRINGE 200 8-15 MG UNDER ity of mg/1.14 mL 00:00: THE SKIN [place] 00 EVERY Medical syringe OTHER WEEK [facility] Yes [id number] INJECT 200 [facility] SYRINGE 200 8-15 MG UNDER ity of mg/1.14 mL 00:00: THE SKIN [place] 00 EVERY Medical syringe OTHER WEEK Branch [facility] Yes [id number] INJECT 200 [facility] SYRINGE 200 8-15 MG UNDER ity of mg/1.14 mL 00:00: THE SKIN [place] 00 EVERY Medical syringe OTHER WEEK [facility] Yes [id number] INJECT 200 Univers SYRINGE 200 8-15 MG UNDER ity of mg/1.14 mL 00:00: THE SKIN [place] 00 EVERY Medical syringe OTHER WEEK Branch [facility] Yes [id number] INJECT 200 [facility] SYRINGE 200 8-15 MG UNDER ity of mg/1.14 mL 00:00: THE SKIN [place] 00 EVERY [facility] Yes [id number] INJECT 200 [facility] SYRINGE 200 8-15 MG UNDER ity of mg/1.14 mL 00:00: THE SKIN [place] 00 EVERY Medical syringe OTHER WEEK [facility] Yes [id number] INJECT 200 [facility] SYRINGE 200 8-15 MG UNDER ity of mg/1.14 mL 00:00: THE SKIN [place] 00 EVERY Medical syringe OTHER WEEK [facility] Yes [id number] INJECT 200 [facility] SYRINGE 200 8-15 MG UNDER ity of mg/1.14 mL 00:00: THE SKIN [place] 00 EVERY Medical syringe OTHER WEEK [facility] Yes [id number] INJECT 200 [facility] SYRINGE 200 8-15 MG UNDER ity of mg/1.14 mL 00:00: THE SKIN [place] 00 EVERY [facility] syringe OTHER [facility] [id number] INJECT 200 [facility] SYRINGE 200 8-15 MG UNDER ity of mg/1.14 mL 00:00: THE SKIN [place] 00 EVERY Medical syringe OTHER WEEK [place] DUPIXENT 2021- No [id number] INJECT 200 [facility] SYRINGE 200 8-15 09-26 MG UNDER ity of mg/1.14 mL 00:00: 00:00 [place] Sy[place] 00 :00 EVERY Medical syringe OTHER WEEK Branch DUPIXENT 2021- No [id number] INJECT 200 [facility] SYRINGE 200 8-15 09-26 MG UNDER ity of mg/1.14 mL 00:00: 00:00 [place] Sy[place] 00 :00 EVERY Medical syringe OTHER WEEK Branch DUPIXENT 2021- No [id number] INJECT 200 [facility] SYRINGE 200 8-15 09-26 MG UNDER ity of mg/1.14 mL 00:00: 00:00 [place] SK[place] Sy[place] 00 :00 EVERY Medical syringe OTHER WEEK Branch mupirocin 2 Yes [id number] Apply to Univers % ointment 7-21 [id number] area(s) 3 it y of 00:00: (three) [place] 00 times Medical daily. Branch mupirocin 2 Yes [id number] Apply to Univers % ointment 7-21 [id number] area(s) 3 it y of 00:00: (three) [place] 00 times Medical daily. Branch mupirocin 2 Yes [id number] Apply to Univers % ointment 7-21 [id number] area(s) 3 it y of 00:00: (three) [place] 00 times Medical daily. Branch mupirocin 2 Yes [id number] Apply to Univers % ointment 7-21 [id number] area(s) 3 it y of 00:00: (three) [place] 00 times Medical daily. Branch mupirocin 2 2021- Yes [id number] Apply to Univers % ointment 7-21 [id number] area(s) 3 it y of 00:00: (three) [place] 00 times Medical daily. Branch mupirocin 2 2021- Yes [id number] Apply to Univers % ointment 7-21 [id number] area(s) 3 it y of 00:00: (three) [place] 00 times Medical daily. Branch mupirocin 2 2-0 Yes [id number] Apply to Univers % ointment 7-21 [id number] area(s) 3 it y of 00:00: (three) [place] 00 times Medical daily. Branch mupirocin 2 2-0 Yes [id number] Apply to Univers % ointment 7-21 [id number] area(s) 3 it y of 00:00: (three) [place] times Medical daily. Branch mupirocin 2 2-0 Yes [id number] Apply to Univers % ointment 7-21 [id number] area(s) 3 it y of 00:00: (three) [place] 00 times Medical daily. Branch mupirocin 2 2-0 Yes [id number] Apply to Univers % ointment 7-21 [id number] area(s) 3 it y of 00:00: (three) [place] 00 times Medical daily. Branch mupirocin 2 2-0 Yes [id number] Apply to Univers % ointment 7-21 [id number] area(s) 3 it y of 00:00: (three) [place] times Medical daily. Branch mupirocin 2 2021-0 Yes [id number] Apply to Univers % ointment 7-21 [id number] area(s) 3 it y of 00:00: (three) [place] times Medical daily. Branch mupirocin 2 2-0 Yes [id number] Apply to Univers % ointment 7-21 [id number] area(s) 3 it y of 00:00: (three) [place] times Medical daily. Branch mupirocin 2 2-0 Yes [id number] Apply to Univers % ointment 7-21 [id number] area(s) 3 it y of 00:00: (three) [place] 00 times Medical daily. Branch mupirocin 2 2-0 Yes [id number] Apply to Univers % ointment 7-21 [id number] area(s) 3 it y of 00:00: (three) [place] 00 times Medical daily. Branch mupirocin 2 2-0 Yes [id number] Apply to Univers % ointment 7-21 [id number] area(s) 3 it y of 00:00: (three) [place] 00 times Medical daily. Branch mupirocin 2 2-0 Yes [id number] Apply to Univers % ointment 7-21 [id number] area(s) 3 it y of 00:00: (three) [place] 00 times Medical daily. Branch mupirocin 2 2-0 Yes [id number] Apply to Univers % ointment 7-21 [id number] area(s) 3 it y of 00:00: (three) [place] 00 times Medical daily. Branch mupirocin 2 2-0 Yes [id number] Apply to Univers % ointment 7-21 [id number] area(s) 3 it y of 00:00: (three) [place] 00 times Medical daily. Branch mupirocin 2 2-0 Yes [id number] Apply to Univers % ointment 7-21 [id number] area(s) 3 it y of 00:00: (three) [place] 00 times Medical daily. Branch mupirocin 2 2021-0 Yes [id number] Apply to Univers % ointment 7-21 [id number] area(s) 3 it y of 00:00: (three) [place] 00 times Medical daily. Branch mupirocin 2 2021-0 Yes [id number] Apply to Univers % ointment 7-21 [id number] area(s) 3 it y of 00:00: (three) [place] 00 times Medical daily. Branch mupirocin 2 2021-0 Yes [id number] Apply to Univers % ointment 7-21 [id number] area(s) 3 it y of 00:00: (three) [place] 00 times Medical daily. Branch mupirocin 2 2-0 Yes [id number] Apply to Univers % ointment 7-21 [id number] area(s) 3 it y of 00:00: (three) [place] 00 times Medical daily. Branch mupirocin 2 2-0 2- No [id number] Apply to Univers % ointment 7-21 10-21 [id number] area(s) 3 i ty of 00:00: 00:00 (three) [place] 00 :00 times Medical daily. Branch mupirocin 2 2-0 2022- No [id number] Apply to Univers % ointment 7-21 10-21 [id number] area(s) 3 i ty of 00:00: 00:00 (three) [place] 00 :00 times Medical daily. Branch mupirocin 2 2021- No [id number] Apply to Univers % ointment -05-26 [id number] area(s) 3 i ty of 00:00: 00:00 (three) [place] 00 :00 times Medical daily. Branch mupirocin 2 2021- No [id number] Apply to Univers % ointment 02-23 [id number] area(s) 3 i ty of 00:00: 00:00 (three) [place] 00 :00 times Medical daily. Branch cephALEXin 2021- Yes TAKE 1 Unive rs 500 mg 7-11 CAPSULE BY ity of capsule 00:00: MOUTH [place] 00 EVERY 8 Medical HOURS FOR Branch 7 DAYS cephALEXin Yes TAKE 1 Unive rs 500 mg 7-11 CAPSULE BY ity of capsule 00:00: MOUTH [place] 00 EVERY 8 Medical HOURS FOR Branch 7 DAYS cephALEXin 0 Yes TAKE 1 Unive rs 500 mg 7-11 CAPSULE BY ity of capsule 00:00: MOUTH [place] 00 EVERY 8 Medical HOURS FOR Branch 7 DAYS cephALEXin 2021-0 Yes TAKE 1 Unive rs 500 mg 7-11 CAPSULE BY ity of capsule 00:00: MOUTH [place] 00 EVERY 8 Medical HOURS FOR Branch 7 DAYS cephALEXin 2021-0 Yes TAKE 1 Unive rs 500 mg 7-11 CAPSULE BY ity of capsule 00:00: MOUTH [place] 00 EVERY 8 Medical HOURS FOR Branch 7 DAYS cephALEXin 2021-0 Yes TAKE 1 Unive rs 500 mg 7-11 CAPSULE BY ity of capsule 00:00: MOUTH [place] 00 EVERY 8 Medical HOURS FOR Branch 7 DAYS cephALEXin 2021-0 Yes TAKE 1 Unive rs 500 mg 7-11 CAPSULE BY ity of capsule 00:00: MOUTH [place] 00 EVERY 8 Medical HOURS FOR Branch 7 DAYS cephALEXin 2021-0 Yes TAKE 1 Unive rs 500 mg 7-11 CAPSULE BY ity of capsule 00:00: MOUTH [place] 00 EVERY 8 Medical HOURS FOR Branch 7 DAYS cephALEXin 2021-0 Yes TAKE 1 Unive rs 500 mg 7-11 CAPSULE BY ity of capsule 00:00: MOUTH [place] 00 EVERY 8 Medical HOURS FOR Branch 7 DAYS cephALEXin 2021-0 Yes TAKE 1 Unive rs 500 mg 7-11 CAPSULE BY ity of capsule 00:00: MOUTH [place] 00 EVERY 8 Medical HOURS FOR Branch 7 DAYS cephALEXin 2021-0 Yes TAKE 1 Unive rs 500 mg 7-11 CAPSULE BY ity of capsule 00:00: MOUTH [place] 00 EVERY 8 Medical HOURS FOR Branch 7 DAYS cephALEXin 2021-0 Yes TAKE 1 Unive rs 500 mg 7-11 CAPSULE BY ity of capsule 00:00: MOUTH [place] 00 EVERY 8 Medical HOURS FOR Branch 7 DAYS cephALEXin 2021-0 Yes TAKE 1 Unive rs 500 mg 7-11 CAPSULE BY ity of capsule 00:00: MOUTH [place] 00 EVERY 8 Medical HOURS FOR Branch 7 DAYS cephALEXin 2021-0 Yes TAKE 1 Unive rs 500 mg 7-11 CAPSULE BY ity of capsule 00:00: MOUTH [place] 00 EVERY 8 Medical HOURS FOR Branch 7 DAYS cephALEXin 2021-0 Yes TAKE 1 Unive rs 500 mg 7-11 CAPSULE BY ity of capsule 00:00: MOUTH [place] 00 EVERY 8 Medical HOURS FOR Branch 7 DAYS cephALEXin 2021-0 Yes TAKE 1 Unive rs 500 mg 7-11 CAPSULE BY ity of capsule 00:00: MOUTH [place] 00 EVERY 8 Medical HOURS FOR Branch 7 DAYS cephALEXin 2021-0 Yes TAKE 1 Unive rs 500 mg 7-11 CAPSULE BY ity of capsule 00:00: MOUTH [place] 00 EVERY 8 Medical HOURS FOR Branch 7 DAYS cephALEXin 2021-0 Yes TAKE 1 Unive rs 500 mg 7-11 CAPSULE BY ity of capsule 00:00: MOUTH [place] 00 EVERY 8 Medical HOURS FOR Branch 7 DAYS cephALEXin 2021-0 Yes TAKE 1 Unive rs 500 mg 7-11 CAPSULE BY ity of capsule 00:00: MOUTH [place] 00 EVERY 8 Medical HOURS FOR Branch 7 DAYS cephALEXin 2021-0 Yes TAKE 1 Unive rs 500 mg 7-11 CAPSULE BY ity of capsule 00:00: MOUTH [place] 00 EVERY 8 Medical HOURS FOR Branch 7 DAYS cephALEXin 2021-0 Yes TAKE 1 Unive rs 500 mg 7-11 CAPSULE BY ity of capsule 00:00: MOUTH [place] 00 EVERY 8 Medical HOURS FOR Branch 7 DAYS cephALEXin 2021-0 Yes TAKE 1 Unive rs 500 mg 7-11 CAPSULE BY ity of capsule 00:00: MOUTH [place] 00 EVERY 8 Medical HOURS FOR Branch 7 DAYS cephALEXin 2021-0 Yes TAKE 1 Unive rs 500 mg 7-11 CAPSULE BY ity of capsule 00:00: MOUTH [place] 00 EVERY 8 Medical HOURS FOR Branch 7 DAYS cephALEXin 2021-0 Yes TAKE 1 Unive rs 500 mg 7-11 CAPSULE BY ity of capsule 00:00: MOUTH [place] 00 EVERY 8 Medical HOURS FOR Branch 7 DAYS cephALEXin 2021-0 Yes TAKE 1 Unive rs 500 mg 7-11 CAPSULE BY ity of capsule 00:00: MOUTH [place] 00 EVERY 8 Medical HOURS FOR Branch 7 DAYS cephALEXin 2021-0 Yes TAKE 1 Unive rs 500 mg 7-11 CAPSULE BY ity of capsule 00:00: MOUTH [place] 00 EVERY 8 Medical HOURS FOR Branch 7 DAYS cephALEXin 2021-0 Yes TAKE 1 Unive rs 500 mg 7-11 CAPSULE BY ity of capsule 00:00: MOUTH [place] 00 EVERY 8 Medical HOURS FOR Branch 7 DAYS cephALEXin 2021-0 Yes TAKE 1 Unive rs 500 mg 7-11 CAPSULE BY ity of capsule 00:00: MOUTH [place] 00 EVERY 8 Medical HOURS FOR Branch 7 DAYS cephALEXin 2021-0 Yes TAKE 1 Unive rs 500 mg 7-11 CAPSULE BY ity of capsule 00:00: MOUTH [place] 00 EVERY 8 Medical HOURS FOR Branch 7 DAYS cephALEXin 2021-0 Yes TAKE 1 Unive rs 500 mg 7-11 CAPSULE BY ity of capsule 00:00: MOUTH [place] 00 EVERY 8 Medical HOURS FOR Branch 7 DAYS cephALEXin 2021-0 Yes TAKE 1 Unive rs 500 mg 7-11 CAPSULE BY ity of capsule 00:00: MOUTH [place] 00 EVERY 8 Medical HOURS FOR Branch 7 DAYS cephALEXin 2021-0 Yes TAKE 1 Unive rs 500 mg 7-11 CAPSULE BY ity of capsule 00:00: MOUTH [place] 00 EVERY 8 Medical HOURS FOR Branch 7 DAYS cephALEXin 2021-0 Yes TAKE 1 Unive rs 500 mg 7-11 CAPSULE BY ity of capsule 00:00: MOUTH [place] 00 EVERY 8 Medical HOURS FOR Branch 7 DAYS cephALEXin 2021-0 Yes TAKE 1 Unive rs 500 mg 7-11 CAPSULE BY ity of capsule 00:00: MOUTH [place] 00 EVERY 8 Medical HOURS FOR Branch 7 DAYS cephALEXin 2021-0 Yes TAKE 1 Unive rs 500 mg 7-11 CAPSULE BY ity of capsule 00:00: MOUTH [place] 00 EVERY 8 Medical HOURS FOR Branch 7 DAYS cephALEXin 2021-0 Yes TAKE 1 Unive rs 500 mg 7-11 CAPSULE BY ity of capsule 00:00: MOUTH [place] 00 EVERY 8 Medical HOURS FOR Branch 7 DAYS cephALEXin 2021-0 Yes TAKE 1 Unive rs 500 mg 7-11 CAPSULE BY ity of capsule 00:00: MOUTH [place] 00 EVERY 8 Medical HOURS FOR Branch 7 DAYS cephALEXin 2021-0 Yes TAKE 1 Unive rs 500 mg 7-11 CAPSULE BY ity of capsule 00:00: MOUTH [place] 00 EVERY 8 Medical HOURS FOR Branch 7 DAYS cephALEXin 2021-0 Yes TAKE 1 Unive rs 500 mg 7-11 CAPSULE BY ity of capsule 00:00: MOUTH [place] 00 EVERY 8 Medical HOURS FOR Branch 7 DAYS cephALEXin 2021-0 Yes TAKE 1 Unive rs 500 mg 7-11 CAPSULE BY ity of capsule 00:00: MOUTH [place] 00 EVERY 8 Medical HOURS FOR Branch 7 DAYS cephALEXin 2021-0 Yes TAKE 1 Unive rs 500 mg 7-11 CAPSULE BY ity of capsule 00:00: MOUTH [place] 00 EVERY 8 Medical HOURS FOR Branch 7 DAYS cephALEXin 2021-0 Yes TAKE 1 Unive rs 500 mg 7-11 CAPSULE BY ity of capsule 00:00: MOUTH [place] 00 EVERY 8 Medical HOURS FOR Branch 7 DAYS cephALEXin 2021-0 Yes TAKE 1 Unive rs 500 mg 7-11 CAPSULE BY ity of capsule 00:00: MOUTH [place] 00 EVERY 8 Medical HOURS FOR Branch 7 DAYS cephALEXin 2021-0 Yes TAKE 1 Unive rs 500 mg 7-11 CAPSULE BY ity of capsule 00:00: MOUTH [place] 00 EVERY 8 Medical HOURS FOR Branch 7 DAYS cephALEXin 2021-0 Yes TAKE 1 Unive rs 500 mg 7-11 CAPSULE BY ity of capsule 00:00: MOUTH [place] 00 EVERY 8 Medical HOURS FOR Branch 7 DAYS cephALEXin 2021-0 Yes TAKE 1 Unive rs 500 mg 7-11 CAPSULE BY ity of capsule 00:00: MOUTH [place] 00 EVERY 8 Medical HOURS FOR Branch 7 DAYS cephALEXin 2021-0 Yes TAKE 1 Unive rs 500 mg 7-11 CAPSULE BY ity of capsule 00:00: MOUTH [place] 00 EVERY 8 Medical HOURS FOR Branch 7 DAYS cephALEXin 2021-0 Yes TAKE 1 Unive rs 500 mg 7-11 CAPSULE BY ity of capsule 00:00: MOUTH [place] 00 EVERY 8 Medical HOURS FOR Branch 7 DAYS cephALEXin 2021-0 Yes TAKE 1 Unive rs 500 mg 7-11 CAPSULE BY ity of capsule 00:00: MOUTH [place] 00 EVERY 8 Medical HOURS FOR Branch 7 DAYS cephALEXin 2021-0 Yes TAKE 1 Unive rs 500 mg 7-11 CAPSULE BY ity of capsule 00:00: MOUTH [place] 00 EVERY 8 Medical HOURS FOR Branch 7 DAYS cephALEXin 2022-0 Yes TAKE 1 Unive rs 500 mg 7-11 CAPSULE BY ity of capsule 00:00: MOUTH [place] 00 EVERY 8 Medical HOURS FOR Branch 7 DAYS cephALEXin 2021-0 Yes TAKE 1 Unive rs 500 mg 7-11 CAPSULE BY ity of capsule 00:00: MOUTH [place] 00 EVERY 8 Medical HOURS FOR Branch 7 DAYS cephALEXin 2021-0 Yes TAKE 1 Unive rs 500 mg 7-11 CAPSULE BY ity of capsule 00:00: MOUTH [place] 00 EVERY 8 Medical HOURS FOR Branch 7 DAYS cephALEXin 2021-0 Yes TAKE 1 Unive rs 500 mg 7-11 CAPSULE BY ity of capsule 00:00: MOUTH [place] 00 EVERY 8 Medical HOURS FOR Branch 7 DAYS cephALEXin 2021-0 Yes TAKE 1 Unive rs 500 mg 7-11 CAPSULE BY ity of capsule 00:00: MOUTH [place] 00 EVERY 8 Medical HOURS FOR Branch 7 DAYS cephALEXin 2021-0 Yes TAKE 1 Unive rs 500 mg 7-11 CAPSULE BY ity of capsule 00:00: MOUTH [place] 00 EVERY 8 Medical HOURS FOR Branch 7 DAYS cephALEXin 2021-0 Yes TAKE 1 Unive rs 500 mg 7-11 CAPSULE BY ity of capsule 00:00: MOUTH [place] 00 EVERY 8 Medical HOURS FOR Branch 7 DAYS cephALEXin 2021-0 Yes TAKE 1 Unive rs 500 mg 7-11 CAPSULE BY ity of capsule 00:00: MOUTH [place] 00 EVERY 8 Medical HOURS FOR Branch 7 DAYS cephALEXin 2021-0 Yes TAKE 1 Unive rs 500 mg 7-11 CAPSULE BY ity of capsule 00:00: MOUTH [place] 00 EVERY 8 Medical HOURS FOR Branch 7 DAYS cephALEXin 2021-0 Yes TAKE 1 Unive rs 500 mg 7-11 CAPSULE BY ity of capsule 00:00: MOUTH [place] 00 EVERY 8 Medical HOURS FOR Branch 7 DAYS cephALEXin 2021-0 Yes TAKE 1 Unive rs 500 mg 7-11 CAPSULE BY ity of capsule 00:00: MOUTH [place] 00 EVERY 8 Medical HOURS FOR Branch 7 DAYS cephALEXin 2021-0 Yes TAKE 1 Unive rs 500 mg 7-11 CAPSULE BY ity of capsule 00:00: MOUTH [place] 00 EVERY 8 Medical HOURS FOR Branch 7 DAYS cephALEXin 2021-0 Yes TAKE 1 Unive rs 500 mg 7-11 CAPSULE BY ity of capsule 00:00: MOUTH [place] 00 EVERY 8 Medical HOURS FOR Branch 7 DAYS cephALEXin 2022-0 Yes TAKE 1 Unive rs 500 mg 7-11 CAPSULE BY ity of capsule 00:00: MOUTH [place] 00 EVERY 8 Medical HOURS FOR Branch 7 DAYS cephALEXin 2021-0 Yes TAKE 1 Unive rs 500 mg 7-11 CAPSULE BY ity of capsule 00:00: MOUTH [place] 00 EVERY 8 Medical HOURS FOR Branch 7 DAYS cephALEXin 2021-0 Yes TAKE 1 Unive rs 500 mg 7-11 CAPSULE BY ity of capsule 00:00: MOUTH [place] 00 EVERY 8 Medical HOURS FOR Branch 7 DAYS cephALEXin 2021-0 Yes TAKE 1 Unive rs 500 mg 7-11 CAPSULE BY ity of capsule 00:00: MOUTH [place] 00 EVERY 8 Medical HOURS FOR Branch 7 DAYS cephALEXin 2021-0 Yes TAKE 1 Unive rs 500 mg 7-11 CAPSULE BY ity of capsule 00:00: MOUTH [place] 00 EVERY 8 Medical HOURS FOR Branch 7 DAYS cephALEXin 2021-0 Yes TAKE 1 Unive rs 500 mg 7-11 CAPSULE BY ity of capsule 00:00: MOUTH [place] 00 EVERY 8 Medical HOURS FOR Branch 7 DAYS cephALEXin 2021-0 Yes TAKE 1 Unive rs 500 mg 7-11 CAPSULE BY ity of capsule 00:00: MOUTH [place] 00 EVERY 8 Medical HOURS FOR Branch 7 DAYS cephALEXin 2021-0 Yes TAKE 1 Unive rs 500 mg 7-11 CAPSULE BY ity of capsule 00:00: MOUTH [place] 00 EVERY 8 Medical HOURS FOR Branch 7 DAYS cephALEXin 2021-0 Yes TAKE 1 Unive rs 500 mg 7-11 CAPSULE BY ity of capsule 00:00: MOUTH [place] 00 EVERY 8 Medical HOURS FOR Branch 7 DAYS cephALEXin 2021-0 Yes TAKE 1 Unive rs 500 mg 7-11 CAPSULE BY ity of capsule 00:00: MOUTH [place] 00 EVERY 8 Medical HOURS FOR Branch 7 DAYS cephALEXin 2021-0 Yes TAKE 1 Unive rs 500 mg 7-11 CAPSULE BY ity of capsule 00:00: MOUTH [place] 00 EVERY 8 Medical HOURS FOR Branch 7 DAYS cephALEXin 2021-0 Yes TAKE 1 Unive rs 500 mg 7-11 CAPSULE BY ity of capsule 00:00: MOUTH [place] 00 EVERY 8 Medical HOURS FOR Branch 7 DAYS cephALEXin 2021-0 Yes TAKE 1 Unive rs 500 mg 7-11 CAPSULE BY ity of capsule 00:00: MOUTH [place] 00 EVERY 8 Medical HOURS FOR Branch 7 DAYS cephALEXin 2021-0 Yes TAKE 1 Unive rs 500 mg 7-11 CAPSULE BY ity of capsule 00:00: MOUTH [place] 00 EVERY 8 Medical HOURS FOR Branch 7 DAYS cephALEXin 2021-0 Yes TAKE 1 Unive rs 500 mg 7-11 CAPSULE BY ity of capsule 00:00: MOUTH [place] 00 EVERY 8 Medical HOURS FOR Branch 7 DAYS cephALEXin 2021-0 Yes TAKE 1 Unive rs 500 mg 7-11 CAPSULE BY ity of capsule 00:00: MOUTH [place] 00 EVERY 8 Medical HOURS FOR Branch 7 DAYS cephALEXin 2021-0 Yes TAKE 1 Unive rs 500 mg 7-11 CAPSULE BY ity of capsule 00:00: MOUTH [place] 00 EVERY 8 Medical HOURS FOR Branch 7 DAYS cephALEXin 2021-0 Yes TAKE 1 Unive rs 500 mg 7-11 CAPSULE BY ity of capsule 00:00: MOUTH [place] 00 EVERY 8 Medical HOURS FOR Branch 7 DAYS cephALEXin 2021-0 Yes TAKE 1 Unive rs 500 mg 7-11 CAPSULE BY ity of capsule 00:00: MOUTH [place] 00 EVERY 8 Medical HOURS FOR Branch 7 DAYS cephALEXin 2021-0 Yes TAKE 1 Unive rs 500 mg 7-11 CAPSULE BY ity of capsule 00:00: MOUTH [place] 00 EVERY 8 Medical HOURS FOR Branch 7 DAYS cephALEXin 2021-0 Yes TAKE 1 Unive rs 500 mg 7-11 CAPSULE BY ity of capsule 00:00: MOUTH [place] 00 EVERY 8 Medical HOURS FOR Branch 7 DAYS cephALEXin 2021-0 Yes TAKE 1 Unive rs 500 mg 7-11 CAPSULE BY ity of capsule 00:00: MOUTH [place] 00 EVERY 8 Medical HOURS FOR Branch 7 DAYS cephALEXin 2021-0 Yes TAKE 1 Unive rs 500 mg 7-11 CAPSULE BY ity of capsule 00:00: MOUTH [place] 00 EVERY 8 Medical HOURS FOR Branch 7 DAYS cephALEXin 2021-0 Yes TAKE 1 Unive rs 500 mg 7-11 CAPSULE BY ity of capsule 00:00: MOUTH [place] 00 EVERY 8 Medical HOURS FOR Branch 7 DAYS cephALEXin 2021-0 Yes TAKE 1 Unive rs 500 mg 7-11 CAPSULE BY ity of capsule 00:00: MOUTH [place] 00 EVERY 8 Medical HOURS FOR Branch 7 DAYS cephALEXin 2021-0 Yes TAKE 1 Unive rs 500 mg 7-11 CAPSULE BY ity of capsule 00:00: MOUTH [place] 00 EVERY 8 Medical HOURS FOR Branch 7 DAYS cephALEXin 2021-0 Yes TAKE 1 Unive rs 500 mg 7-11 CAPSULE BY ity of capsule 00:00: MOUTH [place] 00 EVERY 8 Medical HOURS FOR Branch 7 DAYS cephALEXin 2021-0 Yes TAKE 1 Unive rs 500 mg 7-11 CAPSULE BY ity of capsule 00:00: MOUTH [place] 00 EVERY 8 Medical HOURS FOR Branch 7 DAYS cephALEXin 2021-0 Yes TAKE 1 Unive rs 500 mg 7-11 CAPSULE BY ity of capsule 00:00: MOUTH [place] 00 EVERY 8 Medical HOURS FOR Branch 7 DAYS cephALEXin 2021-0 Yes TAKE 1 Unive rs 500 mg 7-11 CAPSULE BY ity of capsule 00:00: MOUTH [place] 00 EVERY 8 Medical HOURS FOR Branch 7 DAYS cephALEXin 2021-0 Yes TAKE 1 Unive rs 500 mg 7-11 CAPSULE BY ity of capsule 00:00: MOUTH [place] 00 EVERY 8 Medical HOURS FOR Branch 7 DAYS cephALEXin 2021-0 Yes TAKE 1 Unive rs 500 mg 7-11 CAPSULE BY ity of capsule 00:00: MOUTH [place] 00 EVERY 8 Medical HOURS FOR Branch 7 DAYS cephALEXin 2021-0 Yes TAKE 1 Unive rs 500 mg 7-11 CAPSULE BY ity of capsule 00:00: MOUTH [place] 00 EVERY 8 Medical HOURS FOR Branch 7 DAYS cephALEXin 2021-0 Yes TAKE 1 Unive rs 500 mg 7-11 CAPSULE BY ity of capsule 00:00: MOUTH [place] 00 EVERY 8 Medical HOURS FOR Branch 7 DAYS cephALEXin 2021-0 Yes TAKE 1 Unive rs 500 mg 7-11 CAPSULE BY ity of capsule 00:00: MOUTH [place] 00 EVERY 8 Medical HOURS FOR Branch 7 DAYS cephALEXin 2021-0 Yes TAKE 1 Unive rs 500 mg 7-11 CAPSULE BY ity of capsule 00:00: MOUTH [place] 00 EVERY 8 Medical HOURS FOR Branch 7 DAYS cephALEXin 2021-0 Yes TAKE 1 Unive rs 500 mg 7-11 CAPSULE BY ity of capsule 00:00: MOUTH [place] 00 EVERY 8 Medical HOURS FOR Branch 7 DAYS cephALEXin 2021-0 Yes TAKE 1 Unive rs 500 mg 7-11 CAPSULE BY ity of capsule 00:00: MOUTH [place] 00 EVERY 8 Medical HOURS FOR Branch 7 DAYS cephALEXin 2021-0 Yes TAKE 1 Unive rs 500 mg 7-11 CAPSULE BY ity of capsule 00:00: MOUTH [place] 00 EVERY 8 Medical HOURS FOR Branch 7 DAYS cephALEXin 2021-0 Yes TAKE 1 Unive rs 500 mg 7-11 CAPSULE BY ity of capsule 00:00: MOUTH [place] 00 EVERY 8 Medical HOURS FOR Branch 7 DAYS cephALEXin 2022-0 Yes TAKE 1 Unive rs 500 mg 7-11 CAPSULE BY ity of capsule 00:00: MOUTH [place] 00 EVERY 8 Medical HOURS FOR Branch 7 DAYS cephALEXin 2022-0 Yes TAKE 1 Unive rs 500 mg 7-11 CAPSULE BY ity of capsule 00:00: MOUTH [place] 00 EVERY 8 Medical HOURS FOR Branch 7 DAYS cephALEXin 2022-0 Yes TAKE 1 Unive rs 500 mg 7-11 CAPSULE BY [facility] capsule 00:00: MOUTH [place] 00 EVERY 8 Medical HOURS FOR Branch 7 DAYS cephALEXin 202-0 Yes TAKE 1 [facility] rs 500 mg 7-11 CAPSULE BY [facility] capsule 00:00: MOUTH [place] 00 EVERY 8 Medical HOURS FOR [facility] 7 DAYS cephALEXin 2022-0 Yes TAKE 1 [facility] rs 500 mg 7-11 CAPSULE BY [facility] capsule 00:00: MOUTH [place] 00 EVERY 8 Medical HOURS FOR Branch 7 DAYS cephALEXin 2022-0 Yes TAKE 1 [facility] rs 500 mg 7-11 CAPSULE BY [facility] of capsule 00:00: MOUTH [place] 00 EVERY 8 Medical HOURS FOR Branch 7 DAYS cephALEXin 2-0 2023- No TAKE 1 [facility] ers 500 mg 7-11 -28 CAPSULE BY [facility] capsule 00:00: 00:00 MOUTH [place] 00 :00 EVERY 8 Medical HOURS FOR Branch 7 DAYS methocarbam 2021-0 Yes [id number] 500mg Take 1 [facility] oL 500 mg 5-27 tablet by [facility] o f tablet 00:00: mouth 3 (three) Medical times Branch daily as needed for Pain (scale 4-6). methocarbam 2021-0 Yes [id number] 500mg Take 1 [facility] oL 500 mg 5-27 tablet by [facility] o f tablet 00:00: mouth 3 (three) Medical times Branch daily as needed for Pain (scale 4-6). methocarbam 2-0 Yes [id number] 500mg Take 1 [facility] oL 500 mg 5-27 tablet by [facility] o f tablet 00:00: mouth 3 (three) Medical times Branch daily as needed for Pain (scale 4-6). methocarbam 2-0 Yes [id number] 500mg Take 1 [facility] oL 500 mg 5-27 tablet by [facility] o f tablet 00:00: mouth 3 (three) Medical times Branch daily as needed for Pain (scale 4-6). methocarbam 2-0 Yes [id number] 500mg Take 1 [facility] oL 500 mg 5-27 tablet by [facility] o f tablet 00:00: mouth 3 (three) Medical times [facility] daily as needed for Pain (scale 4-6). methocarbam 2022-0 Yes [id number] 500mg Take 1 [facility] oL 500 mg 5-27 tablet by [facility] o f tablet 00:00: mouth (three) Medical times [facility] daily as needed for Pain (scale 4-6). methocarbam 2-0 Yes [id number] 500mg Take 1 [facility] oL 500 mg 5-27 tablet by [facility] o f tablet 00:00: mouth (three) Medical times Branch daily as needed for Pain (scale 4-6). methocarbam 2-0 Yes [id number] 500mg Take 1 [facility] oL 500 mg 5-27 tablet by [facility] o f tablet 00:00: mouth (three) Medical times Branch daily as needed for Pain (scale 4-6). methocarbam 2021-0 Yes [id number] 500mg Take 1 [facility] oL 500 mg 5-27 tablet by [facility] o f tablet 00:00: mouth (three) Medical times Branch daily as needed for Pain (scale 4-6). methocarbam 2-0 Yes [id number] 500mg Take 1 [facility] oL 500 mg 5-27 tablet by [facility] o f tablet 00:00: mouth (three) Medical times Branch daily as needed for Pain (scale 4-6). methocarbam 2-0 Yes [id number] 500mg Take 1 [facility] oL 500 mg 5-27 tablet by [facility] o f tablet 00:00: mouth (three) Medical times Branch daily as needed for Pain (scale 4-6). methocarbam 2022-0 Yes [id number] 500mg Take 1 [facility] oL 500 mg 5-27 tablet by [facility] o f tablet 00:00: mouth (three) Medical times Branch daily as needed for Pain (scale 4-6). methocarbam 2022-0 Yes [id number] 500mg Take 1 [facility] oL 500 mg 5-27 tablet by [facility] o f tablet 00:00: mouth (three) Medical times Branch daily as needed for Pain (scale 4-6). methocarbam 2022-0 Yes [id number] 500mg Take 1 [facility] oL 500 mg 5-27 tablet by [facility] o f tablet 00:00: mouth 3 (three) Medical times Branch daily as needed for Pain (scale 4-6). methocarbam 2022-0 Yes [id number] 500mg Take 1 [facility] oL 500 mg 5-27 tablet by [facility] o f tablet 00:00: mouth (three) Medical times Branch daily as needed for Pain (scale 4-6). methocarbam 2022-0 Yes [id number] 500mg Take 1 [facility] oL 500 mg 5-27 tablet by [facility] o f tablet 00:00: mouth (three) Medical times Branch daily as needed for Pain (scale 4-6). methocarbam 2022-0 Yes [id number] 500mg Take 1 [facility] oL 500 mg 5-27 tablet by [facility] o f tablet 00:00: mouth (three) Medical times Branch daily as needed for Pain (scale 4-6). methocarbam 2-0 Yes [id number] 500mg Take 1 [facility] oL 500 mg 5-27 tablet by [facility] o f tablet 00:00: mouth (three) Medical times Branch daily as needed for Pain (scale 4-6). methocarbam 2022-0 Yes [id number] 500mg Take 1 [facility] oL 500 mg 5-27 tablet by [facility] o f tablet 00:00: mouth (three) Medical times [facility] daily as needed for Pain (scale 4-6). methocarbam 2022-0 Yes [id number] 500mg Take 1 [facility] oL 500 mg 5-27 tablet by [facility] o f tablet 00:00: mouth (three) Medical times [facility] daily as needed for Pain (scale 4-6). methocarbam 2022-0 Yes [id number] 500mg Take 1 [facility] oL 500 mg 5-27 tablet by [facility] o f tablet 00:00: mouth 3 (three) Medical times Branch daily as needed for Pain (scale 4-6). methocarbam 2022-0 Yes [id number] 500mg Take 1 [facility] oL 500 mg 5-27 tablet by [facility] o f tablet 00:00: mouth (three) Medical times Branch daily as needed for Pain (scale 4-6). methocarbam 2022-0 Yes [id number] 500mg Take 1 [facility] oL 500 mg 5-27 tablet by [facility] o f tablet 00:00: mouth 3 (three) Medical times [facility] daily as needed for Pain (scale 4-6). methocarbam 2022-0 Yes [id number] 500mg Take 1 [facility] oL 500 mg 5-27 tablet by [facility] o f tablet 00:00: mouth 3 (three) Medical times [facility] daily as needed for Pain (scale 4-6). methocarbam 2-0 Yes [id number] 500mg Take 1 [facility] oL 500 mg 5-27 tablet by [facility] o f tablet 00:00: mouth (three) Medical times Branch daily as needed for Pain (scale 4-6). methocarbam 2-0 Yes [id number] 500mg Take 1 [facility] oL 500 mg 5-27 tablet by [facility] o f tablet 00:00: mouth (three) Medical times Branch daily as needed for Pain (scale 4-6). methocarbam 2-0 Yes [id number] 500mg Take 1 [facility] oL 500 mg 5-27 tablet by [facility] o f tablet 00:00: mouth (three) Medical times Branch daily as needed for Pain (scale 4-6). methocarbam 2-0 Yes [id number] 500mg Take 1 [facility] oL 500 mg 5-27 tablet by [facility] o f tablet 00:00: mouth (three) Medical times Branch daily as needed for Pain (scale 4-6). methocarbam 2-0 Yes [id number] 500mg Take 1 [facility] oL 500 mg 5-27 tablet by [facility] o f tablet 00:00: mouth (three) Medical times [facility] daily as needed for Pain (scale 4-6). methocarbam 2022-0 Yes [id number] 500mg Take 1 [facility] oL 500 mg 5-27 tablet by [facility] o f tablet 00:00: mouth 3 (three) Medical times [facility] daily as needed for Pain (scale 4-6). methocarbam 2022-0 Yes [id number] 500mg Take 1 [facility] oL 500 mg 5-27 tablet by [facility] o f tablet 00:00: mouth 3 (three) Medical times [facility] daily as needed for Pain (scale 4-6). methocarbam 2-0 Yes [id number] 500mg Take 1 [facility] oL 500 mg 5-27 tablet by [facility] o f tablet 00:00: mouth 3 (three) Medical times Branch daily as needed for Pain (scale 4-6). methocarbam 2-0 Yes [id number] 500mg Take 1 [facility] oL 500 mg 5-27 tablet by [facility] o f tablet 00:00: mouth 3 (three) Medical times [facility] daily as needed for Pain (scale 4-6). methocarbam 2021-0 Yes [id number] 500mg Take 1 [facility] oL 500 mg 5-27 tablet by [facility] o f tablet 00:00: mouth (three) Medical times Branch daily as needed for Pain (scale 4-6). methocarbam 2021-0 Yes [id number] 500mg Take 1 [facility] oL 500 mg 5-27 tablet by [facility] o f tablet 00:00: mouth (three) Medical times [facility] daily as needed for Pain (scale 4-6). methocarbam 2021-0 Yes [id number] 500mg Take 1 [facility] oL 500 mg 5-27 tablet by [facility] o f tablet 00:00: mouth (three) Medical times [facility] daily as needed for Pain (scale 4-6). methocarbam 2-0 Yes [id number] 500mg Take 1 [facility] oL 500 mg 5-27 tablet by [facility] o f tablet 00:00: mouth (three) Medical times Branch daily as needed for Pain (scale 4-6). methocarbam 2-0 Yes [id number] 500mg Take 1 [facility] oL 500 mg 5-27 tablet by [facility] o f tablet 00:00: mouth (three) Medical times [facility] daily as needed for Pain (scale 4-6). methocarbam 2022-0 Yes [id number] 500mg Take 1 [facility] oL 500 mg 5-27 tablet by [facility] o f tablet 00:00: mouth 3 (three) Medical times [facility] daily as needed for Pain (scale 4-6). methocarbam 2022-0 Yes [id number] 500mg Take 1 [facility] oL 500 mg 5-27 tablet by [facility] o f tablet 00:00: mouth 3 (three) Medical times [facility] daily as needed for Pain (scale 4-6). methocarbam 2022-0 Yes [id number] 500mg Take 1 [facility] oL 500 mg 5-27 tablet by [facility] o f tablet 00:00: mouth 3 (three) Medical times [facility] daily as needed for Pain (scale 4-6). methocarbam 2022-0 Yes [id number] 500mg Take 1 [facility] oL 500 mg 5-27 tablet by [facility] o f tablet 00:00: mouth 3 (three) Medical times [facility] daily as needed for Pain (scale 4-6). methocarbam 2022-0 Yes [id number] 500mg Take 1 [facility] oL 500 mg 5-27 tablet by [facility] o f tablet 00:00: mouth 3 (three) Medical times [facility] daily as needed for Pain (scale 4-6). methocarbam 2-0 2022- No [id number] 500mg Take 1 [facility] oL 500 mg 5-27 - tablet by [facility] of tablet 00:00: 00:00 mouth 3 00 :00 (three) Medical times [facility] daily as needed for Pain (scale 4-6). omeprazole 2022-0 Yes 40mg Take 1 [facility] rs 40 mg 5-26 capsule by [facility] capsule 00:00: mouth (two) Medical times Branch daily. omeprazole 2022-0 Yes 40mg Take 1 [facility] rs 40 mg 5-26 capsule by [facility] capsule 00:00: mouth (two) Medical times Branch daily. omeprazole 2022-0 Yes 40mg Take 1 [facility] rs 40 mg 5-26 capsule by [facility] capsule 00:00: mouth (two) Medical times Branch daily. omeprazole 2022-0 Yes 40mg Take 1 [facility] rs 40 mg 5-26 capsule by [facility] of capsule 00:00: mouth (two) Medical times Branch daily. omeprazole 2022-0 Yes 40mg Take 1 [facility] rs 40 mg 5-26 capsule by [facility] of capsule 00:00: mouth 2 (two) Medical times [facility] daily. omeprazole 2022-0 Yes 40mg Take 1 [facility] rs 40 mg 5-26 capsule by [facility] of capsule 00:00: mouth (two) Medical times Branch daily. omeprazole 2022-0 Yes 40mg Take 1 [facility] rs 40 mg 5-26 capsule by [facility] of capsule 00:00: mouth (two) Medical times [facility] daily. omeprazole 2022-0 Yes 40mg Take 1 [facility] rs 40 mg 5-26 capsule by [facility] of capsule 00:00: mouth (two) Medical times [facility] daily. omeprazole 2022-0 Yes 40mg Take 1 [facility] rs 40 mg 5-26 capsule by [facility] of capsule 00:00: mouth (two) Medical times Branch daily. omeprazole 2022-0 Yes 40mg Take 1 [facility] rs 40 mg 5-26 capsule by [facility] of capsule 00:00: mouth (two) Medical times [facility] daily. omeprazole 2022-0 Yes 40mg Take 1 [facility] rs 40 mg 5-26 capsule by [facility] of capsule 00:00: mouth (two) Medical times Branch daily. omeprazole 2022-0 Yes 40mg Take 1 [facility] rs 40 mg 5-26 capsule by [facility] of capsule 00:00: mouth (two) Medical times Branch daily. omeprazole 2022-0 Yes 40mg Take 1 [facility] rs 40 mg 5-26 capsule by [facility] of capsule 00:00: mouth (two) Medical times [facility] daily. omeprazole 2022-0 Yes 40mg Take 1 [facility] rs 40 mg 5-26 capsule by [facility] of capsule 00:00: mouth (two) Medical times Branch daily. omeprazole 2022-0 Yes 40mg Take 1 [facility] rs 40 mg 5-26 capsule by [facility] of capsule 00:00: mouth (two) Medical times Branch daily. omeprazole 2022-0 Yes 40mg Take 1 [facility] rs 40 mg 5-26 capsule by [facility] of capsule 00:00: mouth (two) Medical times Branch daily. omeprazole 2022-0 Yes 40mg Take 1 [facility] rs 40 mg 5-26 capsule by [facility] of capsule 00:00: mouth (two) Medical times Branch daily. omeprazole 2022-0 Yes 40mg Take 1 [facility] rs 40 mg 5-26 capsule by [facility] of capsule 00:00: mouth (two) Medical times Branch daily. omeprazole 2022-0 Yes 40mg Take 1 [facility] rs 40 mg 5-26 capsule by [facility] of capsule 00:00: mouth (two) Medical times Branch daily. omeprazole 2022-0 Yes 40mg Take 1 [facility] rs 40 mg 5-26 capsule by [facility] of capsule 00:00: mouth (two) Medical times Branch daily. omeprazole 2022-0 Yes 40mg Take 1 [facility] rs 40 mg 5-26 capsule by [facility] of capsule 00:00: mouth (two) Medical times [facility] daily. omeprazole 2022-0 Yes 40mg Take 1 [facility] rs 40 mg 5-26 capsule by [facility] of capsule 00:00: mouth (two) Medical times Branch daily. omeprazole 2022-0 Yes 40mg Take 1 [facility] rs 40 mg 5-26 capsule by [facility] of capsule 00:00: mouth (two) Medical times Branch daily. omeprazole 2022-0 Yes 40mg Take 1 [facility] rs 40 mg 5-26 capsule by [facility] of capsule 00:00: mouth (two) Medical times [facility] daily. omeprazole 2022-0 Yes 40mg Take 1 [facility] rs 40 mg 5-26 capsule by [facility] of capsule 00:00: mouth (two) Medical times Branch daily. omeprazole 2022-0 Yes 40mg Take 1 [facility] rs 40 mg 5-26 capsule by [facility] of capsule 00:00: mouth (two) Medical times Branch daily. omeprazole 2022-0 Yes 40mg Take 1 [facility] rs 40 mg 5-26 capsule by [facility] of capsule 00:00: mouth (two) Medical times Branch daily. omeprazole 2022-0 Yes 40mg Take 1 [facility] rs 40 mg 5-26 capsule by [facility] of capsule 00:00: mouth (two) Medical times [facility] daily. omeprazole 2022-0 Yes 40mg Take 1 [facility] rs 40 mg 5-26 capsule by [facility] of capsule 00:00: mouth (two) Medical times Branch daily. omeprazole 2022-0 Yes 40mg Take 1 [facility] rs 40 mg 5-26 capsule by [facility] of capsule 00:00: mouth (two) Medical times Branch daily. omeprazole 2022-0 Yes 40mg Take 1 [facility] rs 40 mg 5-26 capsule by [facility] of capsule 00:00: mouth (two) Medical times Branch daily. omeprazole 2022-0 Yes 40mg Take 1 [facility] rs 40 mg 5-26 capsule by [facility] of capsule 00:00: mouth (two) Medical times Branch daily. omeprazole 2022-0 Yes 40mg Take 1 [facility] rs 40 mg 5-26 capsule by [facility] of capsule 00:00: mouth (two) Medical times Branch daily. omeprazole 2022-0 Yes 40mg Take 1 [facility] rs 40 mg 5-26 capsule by [facility] of capsule 00:00: mouth (two) Medical times Branch daily. omeprazole 2022-0 Yes 40mg Take 1 [facility] rs 40 mg 5-26 capsule by [facility] of capsule 00:00: mouth (two) Medical times Branch daily. omeprazole 2022-0 Yes 40mg Take 1 [facility] rs 40 mg 5-26 capsule by [facility] of capsule 00:00: mouth (two) Medical times Branch daily. omeprazole 2022-0 Yes 40mg Take 1 [facility] rs 40 mg 5-26 capsule by [facility] of capsule 00:00: mouth (two) Medical times Branch daily. omeprazole 2022-0 Yes 40mg Take 1 [facility] rs 40 mg 5-26 capsule by [facility] of capsule 00:00: mouth (two) Medical times Branch daily. omeprazole 2022-0 Yes 40mg Take 1 [facility] rs 40 mg 5-26 capsule by [facility] of capsule 00:00: mouth (two) Medical times Branch daily. omeprazole 2022-0 Yes 40mg Take 1 [facility] rs 40 mg 5-26 capsule by [facility] of capsule 00:00: mouth (two) Medical times Branch daily. omeprazole 2022-0 Yes 40mg Take 1 [facility] rs 40 mg 5-26 capsule by [facility] of capsule 00:00: mouth (two) Medical times Branch daily. omeprazole 2022-0 Yes 40mg Take 1 [facility] rs 40 mg 5-26 capsule by [facility] of capsule 00:00: mouth (two) Medical times Branch daily. omeprazole 2022-0 Yes 40mg Take 1 [facility] rs 40 mg 5-26 capsule by [facility] of capsule 00:00: mouth (two) Medical times Branch daily. omeprazole 2022-0 Yes 40mg Take 1 [facility] rs 40 mg 5-26 capsule by [facility] of capsule 00:00: mouth (two) Medical times Branch daily. omeprazole 2022-0 Yes 40mg Take 1 [facility] rs 40 mg 5-26 capsule by [facility] of capsule 00:00: mouth (two) Medical times [facility] daily. omeprazole 2022-0 Yes 40mg Take 1 [facility] rs 40 mg 5-26 capsule by [facility] of capsule 00:00: mouth (two) Medical times Branch daily. omeprazole 2022-0 Yes 40mg Take 1 [facility] rs 40 mg 5-26 capsule by [facility] of capsule 00:00: mouth (two) Medical times [facility] daily. omeprazole 2022-0 Yes 40mg Take 1 [facility] rs 40 mg 5-26 capsule by [facility] of capsule 00:00: mouth (two) Medical times Branch daily. omeprazole 2022-0 Yes 40mg Take 1 [facility] rs 40 mg 5-26 capsule by [facility] of capsule 00:00: mouth (two) Medical times Branch daily. omeprazole 2022-0 Yes 40mg Take 1 [facility] rs 40 mg 5-26 capsule by [facility] of capsule 00:00: mouth (two) Medical times [facility] daily. omeprazole 2022-0 Yes 40mg Take 1 [facility] rs 40 mg 5-26 capsule by [facility] of capsule 00:00: mouth (two) Medical times Branch daily. omeprazole 2022-0 Yes 40mg Take 1 [facility] rs 40 mg 5-26 capsule by [facility] of capsule 00:00: mouth (two) Medical times Branch daily. omeprazole 2022-0 Yes 40mg Take 1 [facility] rs 40 mg 5-26 capsule by [facility] of capsule 00:00: mouth (two) Medical times [facility] daily. omeprazole 2022-0 Yes 40mg Take 1 [facility] rs 40 mg 5-26 capsule by [facility] of capsule 00:00: mouth (two) Medical times Branch daily. omeprazole 2022-0 Yes 40mg Take 1 [facility] rs 40 mg 5-26 capsule by [facility] of capsule 00:00: mouth (two) Medical times Branch daily. omeprazole 2022-0 Yes 40mg Take 1 [facility] rs 40 mg 5-26 capsule by [facility] of capsule 00:00: mouth (two) Medical times [facility] daily. omeprazole 2022-0 Yes 40mg Take 1 [facility] rs 40 mg 5-26 capsule by [facility] of capsule 00:00: mouth (two) Medical times Branch daily. omeprazole 2022-0 Yes 40mg Take 1 [facility] rs 40 mg 5-26 capsule by [facility] of capsule 00:00: mouth (two) Medical times Branch daily. omeprazole 2022-0 Yes 40mg Take 1 [facility] rs 40 mg 5-26 capsule by [facility] of capsule 00:00: mouth (two) Medical times Branch daily. omeprazole 2022-0 Yes 40mg Take 1 [facility] rs 40 mg 5-26 capsule by [facility] of capsule 00:00: mouth (two) Medical times Branch daily. omeprazole 2022-0 Yes 40mg Take 1 [facility] rs 40 mg 5-26 capsule by [facility] of capsule 00:00: mouth (two) Medical times Branch daily. omeprazole 2022-0 Yes 40mg Take 1 [facility] rs 40 mg 5-26 capsule by [facility] of capsule 00:00: mouth (two) Medical times Branch daily. omeprazole 2022-0 Yes 40mg Take 1 [facility] rs 40 mg 5-26 capsule by [facility] of capsule 00:00: mouth (two) Medical times [facility] daily. omeprazole 2022-0 Yes 40mg Take 1 [facility] rs 40 mg 5-26 capsule by [facility] of capsule 00:00: mouth (two) Medical times [facility] daily. omeprazole 2022-0 Yes 40mg Take 1 [facility] rs 40 mg 5-26 capsule by [facility] of capsule 00:00: mouth (two) Medical times Branch daily. omeprazole 2022-0 Yes 40mg Take 1 [facility] rs 40 mg 5-26 capsule by [facility] of capsule 00:00: mouth (two) Medical times [facility] daily. omeprazole 2022-0 Yes 40mg Take 1 [facility] rs 40 mg 5-26 capsule by [facility] of capsule 00:00: mouth (two) Medical times [facility] daily. omeprazole 2022-0 Yes 40mg Take 1 [facility] rs 40 mg 5-26 capsule by [facility] of capsule 00:00: mouth (two) Medical times Branch daily. omeprazole 2022-0 Yes 40mg Take 1 [facility] rs 40 mg 5-26 capsule by [facility] of capsule 00:00: mouth (two) Medical times [facility] daily. omeprazole 2022-0 Yes 40mg Take 1 [facility] rs 40 mg 5-26 capsule by [facility] of capsule 00:00: mouth (two) Medical times Branch daily. omeprazole 2022-0 Yes 40mg Take 1 [facility] rs 40 mg 5-26 capsule by [facility] of capsule 00:00: mouth (two) Medical times Branch daily. omeprazole 2022-0 Yes 40mg Take 1 [facility] rs 40 mg 5-26 capsule by [facility] of capsule 00:00: mouth (two) Medical times Branch daily. omeprazole 2022-0 Yes 40mg Take 1 [facility] rs 40 mg 5-26 capsule by [facility] of capsule 00:00: mouth (two) Medical times Branch daily. omeprazole 2022-0 Yes 40mg Take 1 [facility] rs 40 mg 5-26 capsule by [facility] of capsule 00:00: mouth (two) Medical times [facility] daily. omeprazole 2022-0 Yes 40mg Take 1 [facility] rs 40 mg 5-26 capsule by [facility] of capsule 00:00: mouth (two) Medical times Branch daily. omeprazole 2022-0 Yes 40mg Take 1 [facility] rs 40 mg 5-26 capsule by [facility] of capsule 00:00: mouth (two) Medical times Branch daily. omeprazole 2022-0 Yes 40mg Take 1 [facility] rs 40 mg 5-26 capsule by [facility] of capsule 00:00: mouth (two) Medical times [facility] daily. omeprazole 2022-0 Yes 40mg Take 1 [facility] rs 40 mg 5-26 capsule by [facility] of capsule 00:00: mouth (two) Medical times [facility] daily. omeprazole 2022-0 Yes 40mg Take 1 [facility] rs 40 mg 5-26 capsule by [facility] of capsule 00:00: mouth (two) Medical times Branch daily. omeprazole 2022-0 Yes 40mg Take 1 [facility] rs 40 mg 5-26 capsule by [facility] of capsule 00:00: mouth (two) Medical times Branch daily. omeprazole 2022-0 Yes 40mg Take 1 [facility] rs 40 mg 5-26 capsule by [facility] of capsule 00:00: mouth (two) Medical times [facility] daily. omeprazole 2022-0 Yes 40mg Take 1 [facility] rs 40 mg 5-26 capsule by [facility] of capsule 00:00: mouth (two) Medical times [facility] daily. omeprazole 2022-0 Yes 40mg Take 1 [facility] rs 40 mg 5-26 capsule by [facility] of capsule 00:00: mouth (two) Medical times [facility] daily. omeprazole 2022-0 Yes 40mg Take 1 [facility] rs 40 mg 5-26 capsule by [facility] of capsule 00:00: mouth (two) Medical times [facility] daily. omeprazole 2022-0 Yes 40mg Take 1 [facility] rs 40 mg 5-26 capsule by [facility] of capsule 00:00: mouth (two) Medical times [facility] daily. omeprazole 2022-0 Yes 40mg Take 1 [facility] rs 40 mg 5-26 capsule by [facility] of capsule 00:00: mouth (two) Medical times [facility] daily. omeprazole 2022-0 Yes 40mg Take 1 [facility] rs 40 mg 5-26 capsule by [facility] of capsule 00:00: mouth (two) Medical times [facility] daily. omeprazole 2022-0 Yes 40mg Take 1 [facility] rs 40 mg 5-26 capsule by [facility] of capsule 00:00: mouth (two) Medical times [facility] daily. omeprazole 2022-0 Yes 40mg Take 1 [facility] rs 40 mg 5-26 capsule by [facility] of capsule 00:00: mouth (two) Medical times [facility] daily. omeprazole 2022-0 Yes 40mg Take 1 [facility] rs 40 mg 5-26 capsule by [facility] of capsule 00:00: mouth (two) Medical times [facility] daily. omeprazole 2022-0 Yes 40mg Take 1 [facility] rs 40 mg 5-26 capsule by [facility] of capsule 00:00: mouth (two) Medical times [facility] daily. omeprazole 2022-0 Yes 40mg Take 1 [facility] rs 40 mg 5-26 capsule by [facility] of capsule 00:00: mouth (two) Medical times [facility] daily. omeprazole 2022-0 Yes 40mg Take 1 [facility] rs 40 mg 5-26 capsule by [facility] of capsule 00:00: mouth (two) Medical times [facility] daily. omeprazole 2022-0 Yes 40mg Take 1 [facility] rs 40 mg 5-26 capsule by [facility] of capsule 00:00: mouth (two) Medical times [facility] daily. omeprazole 2022-0 Yes 40mg Take 1 [facility] rs 40 mg 5-26 capsule by [facility] of capsule 00:00: mouth (two) Medical times [facility] daily. omeprazole 2022-0 Yes 40mg Take 1 [facility] rs 40 mg 5-26 capsule by [facility] of capsule 00:00: mouth (two) Medical times [facility] daily. omeprazole 2022-0 Yes 40mg Take 1 [facility] rs 40 mg 5-26 capsule by [facility] of capsule 00:00: mouth (two) Medical times [facility] daily. omeprazole 2022-0 Yes 40mg Take 1 [facility] rs 40 mg 5-26 capsule by [facility] of capsule 00:00: mouth (two) Medical times [facility] daily. omeprazole 2022-0 Yes 40mg Take 1 [facility] rs 40 mg 5-26 capsule by [facility] of capsule 00:00: mouth (two) Medical times [facility] daily. omeprazole 2022-0 Yes 40mg Take 1 [facility] rs 40 mg 5-26 capsule by [facility] of capsule 00:00: mouth (two) Medical times [facility] daily. omeprazole 2022-0 Yes 40mg Take 1 [facility] rs 40 mg 5-26 capsule by [facility] of capsule 00:00: mouth (two) Medical times [facility] daily. omeprazole 2022-0 Yes 40mg Take 1 [facility] rs 40 mg 5-26 capsule by [facility] of capsule 00:00: mouth (two) Medical times [facility] daily. omeprazole 2022-0 Yes 40mg Take 1 [facility] rs 40 mg 5-26 capsule by [facility] of capsule 00:00: mouth (two) Medical times [facility] daily. omeprazole 2022-0 Yes 40mg Take 1 [facility] rs 40 mg 5-26 capsule by [facility] of capsule 00:00: mouth 2 (two) Medical times [facility] daily. omeprazole 2022-0 Yes 40mg Take 1 [facility] rs 40 mg 5-26 capsule by [facility]y of capsule 00:00: mouth 2 00 (two) Medical times [facility] daily. omeprazole 2022-0 Yes 40mg Take 1 [facility] rs 40 mg 5-26 capsule by [facility] of capsule 00:00: mouth 2 00 (two) Medical times [facility] daily. omeprazole 2022-0 Yes 40mg Take 1 [facility] rs 40 mg 5-26 capsule by [facility] of capsule 00:00: mouth 2 [place] (two) Medical times Branch daily. omeprazole 2022-0 Yes 40mg Take 1 [facility] rs 40 mg 5-26 capsule by [facility] of capsule 00:00: mouth 2 [place] (two) Medical times [facility] daily. omeprazole 2022-0 Yes 40mg Take 1 [facility] rs 40 mg 5-26 capsule by [facility] of capsule 00:00: mouth 2 [place] (two) Medical times [facility] daily. omeprazole 2022-0 2023- No 40mg Take 1 [facility] 40 mg 5-26 02-28 capsule by [facility] of capsule 00:00: 00:00 mouth 2 [place] 00 :00 (two) Medical times Branch daily. tiotropium 2021-0 Yes [facility] (SPIRIVA 5-16 with ity of WITH 12:08: HandiHaler [place] HANDIHALER) 57 18 mcg and Me dical 18 mcg inhalation Branch inhalation capsules EPINEPHrine 2021-0 Yes epinephrin [facility] 0.3 mg/0.3 5-16 e 0.3 ity of mL 12:08: mg/0.3 mL [place] injection 57 injection, Medi marily auto-injec Branch tor tiotropium 2021-0 Yes [facility] (SPIRIVA 5-16 with ity of WITH 12:08: HandiHaler [place] HANDIHALER) 57 18 mcg and Me dical 18 mcg inhalation Branch inhalation capsules EPINEPHrine 2021-0 Yes epinephrin [facility] 0.3 mg/0.3 5-16 e 0.3 ity of mL 12:08: mg/0.3 mL [place] injection 57 injection, Medi marily auto-injec Branch tor tiotropium 2022-0 Yes [facility] (SPIRIVA 5-16 with ity of WITH 12:08: HandiHaler [place] HANDIHALER) 57 18 mcg and Me dical 18 mcg inhalation Branch inhalation capsules EPINEPHrine Yes epinephrin [facility] 0.3 mg/0.3 5-16 e 0.3 ity of mL 12:08: mg/0.3 mL [place] injection 57 injection, Medi marily auto-injec Branch tor tiotropium Yes [facility] (SPIRIVA 5-16 with ity of WITH 12:08: HandiHaler [place] HANDIHALER) 57 18 mcg and Me dical 18 mcg inhalation Branch inhalation capsules EPINEPHrine Yes epinephrin [facility] 0.3 mg/0.3 5-16 e 0.3 ity of mL 12:08: mg/0.3 mL [place] injection 57 injection, Medi marily auto-injec Branch tor tiotropium Yes [facility] (SPIRIVA 5-16 with ity of WITH 12:08: HandiHaler [place] HANDIHALER) 57 18 mcg and Me dical 18 mcg inhalation Branch inhalation capsules EPINEPHrine Yes epinephrin [facility] 0.3 mg/0.3 5-16 e 0.3 ity of mL 12:08: mg/0.3 mL [place] injection 57 injection, Medi marily auto-injec Branch tor tiotropium Yes [facility] ([facility] 5-16 with ity of WITH 12:08: [facility] [place] HANDIHAL[facility]) 57 18 mcg and Me dical 18 mcg inhalation Branch inhalation capsules EPINEPHrine Yes epinephrin [facility] 0.3 mg/0.3 5-16 e 0.3 ity of mL 12:08: mg/0.3 mL [place] injection 57 injection, [facility]i marily auto-injec Branch tor tiotropium Yes [facility] ([facility] 5-16 with ity of WITH 12:08: [facility] [place] HAND[facility]) 57 18 mcg and Me dical 18 mcg inhalation Branch inhalation capsules EPINEPHrine Yes epinephrin [facility] 0.3 mg/0.3 5-16 e 0.3 ity of mL 12:08: mg/0.3 mL [place] injection 57 injection, Medi marily auto-injec [facility] tor tiotropium Yes [facility] (SP[facility]A 5-16 with ity of WITH 12:08: [facility] [place] HAND[facility]) 57 18 mcg and Me dical 18 mcg inhalation Branch inhalation capsules EPINEPHrine Yes epinephrin [facility] 0.3 mg/0.3 5-16 e 0.3 ity of mL 12:08: mg/0.3 mL [place] injection 57 injection, Medi marily auto-injec Branch tor tiotropium Yes [facility] (SP[facility]A 5-16 with ity of WITH 12:08: [facility] [place] HAND[facility]) 57 18 mcg and Me dical 18 mcg inhalation Branch inhalation capsules EPINEPHrine Yes epinephrin [facility] 0.3 mg/0.3 5-16 e 0.3 ity of mL 12:08: mg/0.3 mL [place] injection 57 injection, Medi marily auto-injec Branch tor tiotropium Yes [facility] (SPIRIVA 5-16 with ity of WITH 12:08: [facility] [place] HAND[facility]) 57 18 mcg and Me dical 18 mcg inhalation Branch inhalation capsules EPINEPHrine Yes epinephrin [facility] 0.3 mg/0.3 5-16 e 0.3 ity of mL 12:08: mg/0.3 mL [place] injection 57 injection, Medi marily auto-injec Branch tor tiotropium Yes [facility] (SPIRIVA 5-16 with ity of WITH 12:08: [facility] [place] HAND[facility]) 57 18 mcg and Me dical 18 mcg inhalation Branch inhalation capsules EPINEPHrine Yes epinephrin [facility] 0.3 mg/0.3 5-16 e 0.3 ity of mL 12:08: mg/0.3 mL [place] injection 57 injection, Medi marily auto-injec Branch tor tiotropium Yes [facility] (SP[facility]A 5-16 with ity of WITH 12:08: [facility] [place] HAND[facility]) 57 18 mcg and Me dical 18 mcg inhalation Branch inhalation capsules EPINEPHrine Yes epinephrin [facility] 0.3 mg/0.3 5-16 e 0.3 ity of mL 12:08: mg/0.3 mL [place] injection 57 injection, Medi marily auto-injec Branch tor tiotropium 0 Yes [facility] (SP[facility] 5-16 with ity of WITH 12:08: [facility] [place] HAND[facility]) 57 18 mcg and Me dical 18 mcg inhalation Branch inhalation capsules EPINEPHrine Yes epinephrin [facility] 0.3 mg/0.3 5-16 e 0.3 ity of mL 12:08: mg/0.3 mL [place] injection 57 injection, Medi marily auto-injec Branch tor tiotropium Yes [facility] (SPIR[facility]A 5-16 with ity of WITH 12:08: [facility] [place] HAND[facility]) 57 18 mcg and Me dical 18 mcg inhalation Branch inhalation capsules EPINEPHrine Yes epinephrin [facility] 0.3 mg/0.3 5-16 e 0.3 ity of mL 12:08: mg/0.3 mL [place] injection 57 injection, Medi marily auto-injec Branch tor tiotropium Yes [facility] (SPIRIVA 5-16 with ity of WITH 12:08: [facility] [place] HAND[facility]) 57 18 mcg and Me dical 18 mcg inhalation Branch inhalation capsules EPINEPHrine Yes epinephrin [facility] 0.3 mg/0.3 5-16 e 0.3 ity of mL 12:08: mg/0.3 mL [place] injection 57 injection, [facility] marily auto-injec Branch tor tiotropium Yes [facility] (SP[facility]A 5-16 with ity of WITH 12:08: [facility] [place] HAND[facility]) 57 18 mcg and Me dical 18 mcg inhalation Branch inhalation capsules EPINEPHrine Yes epinephrin [facility] 0.3 mg/0.3 5-16 e 0.3 ity of mL 12:08: mg/0.3 mL [place] injection 57 injection, Medi marily auto-injec Branch tor tiotropium Yes [facility] (SP[facility]A 5-16 with ity of WITH 12:08: [facility] [place] HAND[facility]) 57 18 mcg and Me dical 18 mcg inhalation Branch inhalation capsules EPINEPHrine Yes epinephrin [facility] 0.3 mg/0.3 5-16 e 0.3 ity of mL 12:08: mg/0.3 mL [place] injection 57 injection, Medi marily auto-injec Branch tor tiotropium Yes [facility] (SPIRIVA 5-16 with ity of WITH 12:08: [facility] [place] HAND[facility]) 57 18 mcg and Me dical 18 mcg inhalation Branch inhalation capsules EPINEPHrine Yes epinephrin [facility] 0.3 mg/0.3 5-16 e 0.3 ity of mL 12:08: mg/0.3 mL [place] injection 57 injection, Medi marily auto-injec Branch tor tiotropium Yes [facility] (SPIRIVA 5-16 with ity of WITH 12:08: [facility] [place] HAND[facility]) 57 18 mcg and Me dical 18 mcg inhalation Branch inhalation capsules EPINEPHrine Yes epinephrin [facility] 0.3 mg/0.3 5-16 e 0.3 ity of mL 12:08: mg/0.3 mL [place] injection 57 injection, Medi marily auto-injec Branch tor tiotropium Yes [facility] (SPIRIVA 5-16 with ity of WITH 12:08: [facility] [place] HAND[facility]) 57 18 mcg and Me dical 18 mcg inhalation Branch inhalation capsules EPINEPHrine Yes epinephrin [facility] 0.3 mg/0.3 5-16 e 0.3 ity of mL 12:08: mg/0.3 mL [place] injection 57 injection, Medi marily auto-injec Branch tor tiotropium Yes [facility] (SPIRIVA 5-16 with ity of WITH 12:08: [facility] [place] HAND[facility]) 57 18 mcg and Me dical 18 mcg inhalation Branch inhalation capsules EPINEPHrine Yes epinephrin [facility] 0.3 mg/0.3 5-16 e 0.3 ity of mL 12:08: mg/0.3 mL [place] injection 57 injection, Medi marily auto-injec Branch tor tiotropium Yes [facility] (SP[facility]IVA 5-16 with ity of WITH 12:08: [facility] [place] HAND[facility]) 57 18 mcg and Me dical 18 mcg inhalation Branch inhalation capsules EPINEPHrine Yes epinephrin [facility] 0.3 mg/0.3 5-16 e 0.3 ity of mL 12:08: mg/0.3 mL [place] injection 57 injection, Medi marily auto-injec Branch tor tiotropium Yes [facility] (SPIRIVA 5-16 with ity of WITH 12:08: [facility] [place] HAND[facility]) 57 18 mcg and Me dical 18 mcg inhalation Branch inhalation capsules EPINEPHrine Yes epinephrin [facility] 0.3 mg/0.3 5-16 e 0.3 ity of mL 12:08: mg/0.3 mL [place] injection 57 injection, Medi marily auto-injec Branch tor tiotropium Yes [facility] (SPIRIVA 5-16 with ity of WITH 12:08: [facility] [place] HAND[facility]) 57 18 mcg and Me dical 18 mcg inhalation Branch inhalation capsules EPINEPHrine Yes epinephrin [facility] 0.3 mg/0.3 5-16 e 0.3 ity of mL 12:08: mg/0.3 mL [place] injection 57 injection, Medi marily auto-injec Branch tor tiotropium Yes [facility] (SPIRIVA 5-16 with ity of WITH 12:08: [facility] [place] HAND[facility]) 57 18 mcg and Me dical 18 mcg inhalation Branch inhalation capsules EPINEPHrine Yes epinephrin [facility] 0.3 mg/0.3 5-16 e 0.3 ity of mL 12:08: mg/0.3 mL [place] injection 57 injection, Medi mar[facility] auto-injec Branch tor tiotropium Yes [facility] (SPIRIVA 5-16 with ity of WITH 12:08: [facility] [place] HAND[facility]) 57 18 mcg and Me dical 18 mcg inhalation Branch inhalation capsules EPINEPHrine Yes epinephrin [facility] 0.3 mg/0.3 5-16 e 0.3 ity of mL 12:08: mg/0.3 mL [place] injection 57 injection, Medi marily auto-injec Branch tor tiotropium Yes [facility] (SPIRIVA 5-16 with ity of WITH 12:08: [facility] [place] HAND[facility]) 57 18 mcg and Me dical 18 mcg inhalation Branch inhalation capsules EPINEPHrine Yes epinephrin [facility] 0.3 mg/0.3 5-16 e 0.3 ity of mL 12:08: mg/0.3 mL [place] injection 57 injection, Medi marily auto-injec Branch tor tiotropium Yes [facility] (SPIRIVA 5-16 with ity of WITH 12:08: [facility] [place] HAND[facility]) 57 18 mcg and Me dical 18 mcg inhalation Branch inhalation capsules EPINEPHrine Yes epinephrin [facility] 0.3 mg/0.3 5-16 e 0.3 ity of mL 12:08: mg/0.3 mL [place] injection 57 injection, Medi marily auto-injec Branch tor tiotropium Yes [facility] (SPIRIVA 5-16 with ity of WITH 12:08: [facility] [place] HAND[facility]) 57 18 mcg and Me dical 18 mcg inhalation Branch inhalation capsules EPINEPHrine Yes epinephrin [facility] 0.3 mg/0.3 5-16 e 0.3 ity of mL 12:08: mg/0.3 mL [place] injection 57 injection, Medi mar[facility] auto-injec Branch tor tiotropium Yes [facility] (SPIRIVA 5-16 with ity of WITH 12:08: [facility] [place] HAND[facility]AL[facility]) 57 18 mcg and Me dical 18 mcg inhalation Branch inhalation capsules EPINEPHrine Yes epinephrin [facility] 0.3 mg/0.3 5-16 e 0.3 ity of mL 12:08: mg/0.3 mL [place] injection 57 injection, Medi marily auto-injec Branch tor tiotropium Yes [facility] (SPIRIVA 5-16 with ity of WITH 12:08: [facility] [place] HANDIHAL[facility]) 57 18 mcg and Me dical 18 mcg inhalation Branch inhalation capsules EPINEPHrine Yes epinephrin [facility] 0.3 mg/0.3 5-16 e 0.3 ity of mL 12:08: mg/0.3 mL [place] injection 57 injection, Medi marily auto-injec Branch tor tiotropium Yes [facility] (SPIRIVA 5-16 with ity of WITH 12:08: [facility] [place] HAND[facility]AL[facility]) 57 18 mcg and Me dical 18 mcg inhalation Branch inhalation capsules EPINEPHrine 0 Yes epinephrin [facility] 0.3 mg/0.3 5-16 e 0.3 ity of mL 12:08: mg/0.3 mL [place] injection 57 injection, Medi marily auto-injec Branch tor tiotropium 0 Yes [facility] (SPIRIVA 5-16 with ity of WITH 12:08: [facility] [place] HANDIHAL[facility]) 57 18 mcg and Me dical 18 mcg inhalation Branch inhalation capsules EPINEPHrine Yes epinephrin [facility] 0.3 mg/0.3 5-16 e 0.3 ity of mL 12:08: mg/0.3 mL [place] injection 57 injection, Medi marily auto-injec Branch tor tiotropium Yes [facility] (SPIRIVA 5-16 with ity of WITH 12:08: [facility] [place] HANDIHAL[facility]) 57 18 mcg and Me dical 18 mcg inhalation Branch inhalation capsules EPINEPHrine Yes epinephrin [facility] 0.3 mg/0.3 5-16 e 0.3 ity of mL 12:08: mg/0.3 mL [place] injection 57 injection, [facility] marily auto-injec Branch tor hydrOXYzine 0 Yes as needed. Univers 50 mg 5-09 ity of tablet 09:19: [address] hydrOXYzine 2021-0 Yes as needed. [facility] 50 mg 5-09 ity of tablet 09:19: [address] hydrOXYzine 2021-0 Yes as needed. [facility] 50 mg 5-09 ity of tablet 09:19: [address] hydrOXYzine 2021-0 Yes as needed. [facility] 50 mg 5-09 ity of tablet 09:19: [address] hydrOXYzine 2021-0 Yes as needed. [facility] 50 mg 5-09 ity of tablet 09:19: [address] hydrOXYzine 2021-0 Yes as needed. [facility] 50 mg 5-09 ity of tablet 09:19: [address] hydrOXYzine 2021-0 Yes as needed. [facility] 50 mg 5-09 ity of tablet 09:19: [address] hydrOXYzine 2021-0 Yes as needed. [facility] 50 mg 5-09 ity of tablet 09:19: [address] hydrOXYzine 2022-0 Yes as needed. [facility] 50 mg 5-09 ity of tablet 09:19: [address] hydrOXYzine 2022-0 Yes as needed. [facility] 50 mg 5-09 ity of tablet 09:19: [address] hydrOXYzine 2022-0 Yes as needed. [facility] 50 mg 5-09 ity of tablet 09:19: [address] hydrOXYzine 2022-0 Yes as needed. [facility] 50 mg 5-09 ity of tablet 09:19: [address] hydrOXYzine 2022-0 Yes as needed. [facility] 50 mg 5-09 ity of tablet 09:19: [address] hydrOXYzine 2022-0 Yes as needed. [facility] 50 mg 5-09 ity of tablet 09:19: [address] hydrOXYzine 2022-0 Yes as needed. [facility] 50 mg 5-09 ity of tablet 09:19: [address] hydrOXYzine 2022-0 Yes as needed. [facility] 50 mg 5-09 ity of tablet 09:19: [address] hydrOXYzine 2022-0 Yes as needed. [facility] 50 mg 5-09 ity of tablet 09:19: [address] hydrOXYzine 2022-0 Yes as needed. [facility] 50 mg 5-09 ity of tablet 09:19: [address] hydrOXYzine 2022-0 Yes as needed. [facility] 50 mg 5-09 ity of tablet 09:19: [address] hydrOXYzine 2022-0 Yes as needed. [facility] 50 mg 5-09 ity of tablet 09:19: [address] hydrOXYzine 2022-0 Yes as needed. [facility] 50 mg 5-09 ity of tablet 09:19: [address] hydrOXYzine 2022-0 Yes as needed. [facility] 50 mg 5-09 ity of tablet 09:19: [address] hydrOXYzine 2022-0 Yes as needed. [facility] 50 mg 5-09 ity of tablet 09:19: [address] hydrOXYzine 2022-0 Yes as needed. [facility] 50 mg 5-09 ity of tablet 09:19: [address] hydrOXYzine 2022-0 Yes as needed. [facility] 50 mg 5-09 ity of tablet 09:19: [address] hydrOXYzine 2022-0 Yes as needed. [facility] 50 mg 5-09 ity of tablet 09:19: [address] hydrOXYzine 2022-0 Yes as needed. [facility] 50 mg 5-09 ity of tablet 09:19: [address] hydrOXYzine 2-0 Yes as needed. [facility] 50 mg 5-09 ity of tablet 09:19: [address] hydrOXYzine 2-0 Yes as needed. [facility] 50 mg 5-09 ity of tablet 09:19: [address] hydrOXYzine 2-0 Yes as needed. [facility] 50 mg 5-09 ity of tablet 09:19: [address] hydrOXYzine 2-0 Yes as needed. [facility] 50 mg 5-09 ity of tablet 09:19: [address] hydrOXYzine 2021-0 Yes as needed. [facility] 50 mg 5-09 ity of tablet 09:19: [address] hydrOXYzine 2021-0 Yes as needed. [facility] 50 mg 5-09 ity of tablet 09:19: [address] hydrOXYzine 2021-0 Yes as needed. [facility] 50 mg 5-09 ity of tablet 09:19: [address] furosemide 2022-0 Yes 80mg Take 1 [facility] 80 mg 5-09 tablet by ity of tablet 00:00: mouth [place] 00 every Medical morning Branch and evening. furosemide 2022-0 Yes 80mg Take 1 [facility] 80 mg 5-09 tablet by ity of tablet 00:00: mouth [place] 00 every Medical morning Branch and evening. furosemide 2022-0 Yes 80mg Take 1 [facility] 80 mg 5-09 tablet by ity of tablet 00:00: mouth [place] 00 every Medical morning Branch and evening. furosemide 2022-0 Yes 80mg Take 1 [facility] 80 mg 5-09 tablet by ity of tablet 00:00: mouth [place] 00 every Medical morning Branch and evening. furosemide 2022-0 Yes 80mg Take 1 [facility] 80 mg 5-09 tablet by ity of tablet 00:00: mouth [place] 00 every Medical morning Branch and evening. furosemide 2022-0 Yes 80mg Take 1 [facility] 80 mg 5-09 tablet by ity of tablet 00:00: mouth [place] 00 every Medical morning Branch and evening. furosemide 2022-0 Yes 80mg Take 1 [facility] 80 mg 5-09 tablet by ity of tablet 00:00: mouth [place] 00 every Medical morning Branch and evening. furosemide 2022-0 Yes 80mg Take 1 [facility] 80 mg 5-09 tablet by ity of tablet 00:00: mouth [place] 00 every Medical morning Branch and evening. furosemide 2022-0 Yes 80mg Take 1 [facility] 80 mg 5-09 tablet by ity of tablet 00:00: mouth [place] 00 every Medical morning Branch and evening. furosemide 2022-0 Yes 80mg Take 1 [facility] 80 mg 5-09 tablet by ity of tablet 00:00: mouth [place] 00 every Medical morning Branch and evening. furosemide 2022-0 Yes 80mg Take 1 [facility] rs 80 mg 5-09 tablet by ity of tablet 00:00: mouth [place] 00 every Medical morning Branch and evening. furosemide 2022-0 Yes 80mg Take 1 [facility] 80 mg 5-09 tablet by ity of tablet 00:00: mouth [place] 00 every Medical morning Branch and evening. furosemide 2022-0 Yes 80mg Take 1 [facility] rs 80 mg 5-09 tablet by ity of tablet 00:00: mouth [place] 00 every Medical morning Branch and evening. furosemide 2022-0 Yes 80mg Take 1 [facility] 80 mg 5-09 tablet by ity of tablet 00:00: mouth [place] 00 every Medical morning Branch and evening. furosemide 2022-0 Yes 80mg Take 1 [facility] rs 80 mg 5-09 tablet by ity of tablet 00:00: mouth [place] 00 every Medical morning Branch and evening. furosemide 2022-0 Yes 80mg Take 1 [facility] 80 mg 5-09 tablet by ity of tablet 00:00: mouth [place] 00 every Medical morning Branch and evening. furosemide 2022-0 Yes 80mg Take 1 [facility] 80 mg 5-09 tablet by ity of tablet 00:00: mouth [place] 00 every Medical morning Branch and evening. furosemide 2022-0 Yes 80mg Take 1 [facility] 80 mg 5-09 tablet by ity of tablet 00:00: mouth [place] 00 every Medical morning Branch and evening. furosemide 2022-0 Yes 80mg Take 1 [facility] 80 mg 5-09 tablet by ity of tablet 00:00: mouth [place] 00 every Medical morning Branch and evening. furosemide 2022-0 Yes 80mg Take 1 [facility] 80 mg 5-09 tablet by ity of tablet 00:00: mouth [place] 00 every Medical morning Branch and evening. furosemide 2022-0 Yes 80mg Take 1 [facility] 80 mg 5-09 tablet by ity of tablet 00:00: mouth [place] 00 every Medical morning Branch and evening. furosemide 2022-0 Yes 80mg Take 1 [facility] 80 mg 5-09 tablet by ity of tablet 00:00: mouth [place] 00 every Medical morning Branch and evening. furosemide 2022-0 Yes 80mg Take 1 [facility] 80 mg 5-09 tablet by ity of tablet 00:00: mouth [place] 00 every Medical morning Branch and evening. furosemide 2022-0 Yes 80mg Take 1 [facility] 80 mg 5-09 tablet by ity of tablet 00:00: mouth [place] 00 every Medical morning Branch and evening. furosemide 2022-0 Yes 80mg Take 1 [facility] 80 mg 5-09 tablet by ity of tablet 00:00: mouth [place] 00 every Medical morning Branch and evening. furosemide 2022-0 Yes 80mg Take 1 [facility] 80 mg 5-09 tablet by ity of tablet 00:00: mouth [place] 00 every Medical morning Branch and evening. furosemide 2022-0 Yes 80mg Take 1 [facility] 80 mg 5-09 tablet by ity of tablet 00:00: mouth [place] 00 every Medical morning Branch and evening. furosemide 2022-0 Yes 80mg Take 1 [facility] 80 mg 5-09 tablet by ity of tablet 00:00: mouth [place] 00 every Medical morning Branch and evening. furosemide 2022-0 Yes 80mg Take 1 [facility] 80 mg 5-09 tablet by ity of tablet 00:00: mouth [place] 00 every Medical morning Branch and evening. furosemide 2022-0 Yes 80mg Take 1 [facility] 80 mg 5-09 tablet by ity of tablet 00:00: mouth [place] 00 every Medical morning Branch and evening. furosemide 2022-0 Yes 80mg Take 1 [facility] rs 80 mg 5-09 tablet by ity of tablet 00:00: mouth [place] 00 every Medical morning Branch and evening. furosemide 2022-0 Yes 80mg Take 1 [facility] rs 80 mg 5-09 tablet by ity of tablet 00:00: mouth [place] 00 every Medical morning Branch and evening. furosemide 2022-0 Yes 80mg Take 1 [facility] rs 80 mg 5-09 tablet by ity of tablet 00:00: mouth [place] 00 every Medical morning Branch and evening. furosemide 2022-0 Yes 80mg Take 1 [facility] 80 mg 5-09 tablet by ity of tablet 00:00: mouth [place] 00 every Medical morning Branch and evening. furosemide 2022-0 Yes 80mg Take 1 [facility] 80 mg 5-09 tablet by ity of tablet 00:00: mouth [place] 00 every Medical morning Branch and evening. furosemide 2022-0 Yes 80mg Take 1 [facility] 80 mg 5-09 tablet by ity of tablet 00:00: mouth [place] 00 every Medical morning Branch and evening. furosemide 2022-0 Yes 80mg Take 1 [facility] 80 mg 5-09 tablet by ity of tablet 00:00: mouth [place] 00 every Medical morning Branch and evening. furosemide 2022-0 Yes 80mg Take 1 [facility] 80 mg 5-09 tablet by ity of tablet 00:00: mouth [place] 00 every Medical morning Branch and evening. furosemide 2022-0 Yes 80mg Take 1 [facility] 80 mg 5-09 tablet by ity of tablet 00:00: mouth [place] 00 every Medical morning Branch and evening. furosemide 2022-0 Yes 80mg Take 1 [facility] 80 mg 5-09 tablet by ity of tablet 00:00: mouth [place] 00 every Medical morning Branch and evening. furosemide 2022-0 Yes 80mg Take 1 [facility] rs 80 mg 5-09 tablet by ity of tablet 00:00: mouth [place] 00 every Medical morning Branch and evening. furosemide 2022-0 Yes 80mg Take 1 [facility] 80 mg 5-09 tablet by ity of tablet 00:00: mouth [place] 00 every Medical morning Branch and evening. furosemide 2022-0 Yes 80mg Take 1 [facility] 80 mg 5-09 tablet by ity of tablet 00:00: mouth [place] 00 every Medical morning Branch and evening. furosemide 2022-0 Yes 80mg Take 1 [facility] 80 mg 5-09 tablet by ity of tablet 00:00: mouth [place] 00 every Medical morning Branch and evening. furosemide 2022-0 Yes 80mg Take 1 [facility] 80 mg 5-09 tablet by ity of tablet 00:00: mouth [place] 00 every Medical morning Branch and evening. furosemide 2022-0 Yes 80mg Take 1 [facility] 80 mg 5-09 tablet by ity of tablet 00:00: mouth [place] 00 every Medical morning Branch and evening. furosemide 2022-0 Yes 80mg Take 1 [facility] rs 80 mg 5-09 tablet by ity of tablet 00:00: mouth [place] 00 every Medical morning Branch and evening. furosemide 2022-0 Yes 80mg Take 1 [facility] 80 mg 5-09 tablet by ity of tablet 00:00: mouth [place] 00 every Medical morning Branch and evening. furosemide 2022-0 Yes 80mg Take 1 [facility] rs 80 mg 5-09 tablet by ity of tablet 00:00: mouth [place] 00 every Medical morning Branch and evening. furosemide 2022-0 Yes 80mg Take 1 [facility] rs 80 mg 5-09 tablet by ity of tablet 00:00: mouth [place] 00 every Medical morning Branch and evening. furosemide 2022-0 Yes 80mg Take 1 [facility] rs 80 mg 5-09 tablet by ity of tablet 00:00: mouth [place] 00 every Medical morning Branch and evening. furosemide 2022-0 Yes 80mg Take 1 [facility] rs 80 mg 5-09 tablet by ity of tablet 00:00: mouth [place] 00 every Medical morning Branch and evening. furosemide 2022-0 Yes 80mg Take 1 [facility] rs 80 mg 5-09 tablet by ity of tablet 00:00: mouth [place] 00 every Medical morning Branch and evening. furosemide 2022-0 Yes 80mg Take 1 [facility] rs 80 mg 5-09 tablet by ity of tablet 00:00: mouth [place] 00 every Medical morning Branch and evening. furosemide 2022-0 Yes 80mg Take 1 [facility] rs 80 mg 5-09 tablet by ity of tablet 00:00: mouth [place] 00 every Medical morning Branch and evening. furosemide 2022-0 Yes 80mg Take 1 [facility] rs 80 mg 5-09 tablet by ity of tablet 00:00: mouth [place] 00 every Medical morning Branch and evening. furosemide 2022-0 Yes 80mg Take 1 [facility] rs 80 mg 5-09 tablet by ity of tablet 00:00: mouth [place] 00 every Medical morning Branch and evening. furosemide 2022-0 Yes 80mg Take 1 [facility] rs 80 mg 5-09 tablet by ity of tablet 00:00: mouth [place] 00 every Medical morning Branch and evening. furosemide 2022-0 Yes 80mg Take 1 [facility] rs 80 mg 5-09 tablet by ity of tablet 00:00: mouth [place] 00 every Medical morning Branch and evening. furosemide 2022-0 Yes 80mg Take 1 [facility] rs 80 mg 5-09 tablet by ity of tablet 00:00: mouth [place] 00 every Medical morning Branch and evening. furosemide 2022-0 Yes 80mg Take 1 [facility] rs 80 mg 5-09 tablet by ity of tablet 00:00: mouth [place] 00 every Medical morning Branch and evening. furosemide 2022-0 Yes 80mg Take 1 [facility] rs 80 mg 5-09 tablet by ity of tablet 00:00: mouth [place] 00 every Medical morning Branch and evening. furosemide 2022-0 Yes 80mg Take 1 [facility] rs 80 mg 5-09 tablet by ity of tablet 00:00: mouth [place] 00 every Medical morning Branch and evening. furosemide 2022-0 Yes 80mg Take 1 [facility] rs 80 mg 5-09 tablet by ity of tablet 00:00: mouth [place] 00 every Medical morning Branch and evening. furosemide 2022-0 2023- No 80mg Take 1 [facility] ers 80 mg 5-09 -11 tablet by ity of tablet 00:00: 00:00 mouth [place] 00 :00 every Medical morning Branch and evening. traMADoL 50 2021-0 Yes 4647 50mg Take 1 [facility] ers mg tablet 4-05 tablet by ity o f 00:00: mouth [place] 00 every 6 Medical (six) Branch hours as needed for Pain (scale 7-10). Indication s: acute pain traMADoL 50 2021-0 Yes 4647 50mg Take 1 [facility] ers mg tablet 4-05 tablet by ity o f 00:00: mouth [place] 00 every 6 Medical (six) Branch hours as needed for Pain (scale 7-10). Indication s: acute pain traMADoL 50 2021-0 Yes 4647 50mg Take 1 [facility] ers mg tablet 4-05 tablet by ity o f 00:00: mouth [place] 00 every 6 Medical (six) Branch hours as needed for Pain (scale 7-10). Indication s: acute pain traMADoL 50 2022-0 Yes 4647 50mg Take 1 [facility] ers mg tablet 4-05 tablet by ity o f 00:00: mouth [place] 00 every 6 Medical (six) Branch hours as needed for Pain (scale 7-10). Indication s: acute pain traMADoL 50 2-0 Yes 4647 50mg Take 1 [facility] mg tablet 4-05 tablet by ity o f 00:00: mouth [place] 00 every 6 Medical (six) Branch hours as needed for Pain (scale 7-10). Indication s: acute pain traMADoL 50 2-0 Yes 4647 50mg Take 1 [facility] mg tablet 4-05 tablet by ity o f 00:00: mouth [place] 00 every 6 Medical (six) Branch hours as needed for Pain (scale 7-10). Indication s: acute pain traMADoL 50 2-0 Yes 4647 50mg Take 1 [facility] mg tablet 4-05 tablet by ity o f 00:00: mouth [place] 00 every 6 Medical (six) Branch hours as needed for Pain (scale 7-10). Indication s: acute pain traMADoL 50 2-0 Yes 4647 50mg Take 1 [facility] mg tablet 4-05 tablet by ity o f 00:00: mouth [place] 00 every 6 Medical (six) Branch hours as needed for Pain (scale 7-10). Indication s: acute pain traMADoL 50 2021-0 Yes 4647 50mg Take 1 [facility] mg tablet 4-05 tablet by ity o f 00:00: mouth [place] 00 every 6 Medical (six) Branch hours as needed for Pain (scale 7-10). Indication s: acute pain traMADoL 50 2021-0 Yes 4647 50mg Take 1 [facility] mg tablet 4-05 tablet by ity o f 00:00: mouth [place] 00 every 6 Medical (six) Branch hours as needed for Pain (scale 7-10). Indication s: acute pain traMADoL 50 2-0 Yes 4647 50mg Take 1 [facility] mg tablet 4-05 tablet by ity o f 00:00: mouth [place] 00 every 6 Medical (six) Branch hours as needed for Pain (scale 7-10). Indication s: acute pain traMADoL 50 2-0 Yes 4647 50mg Take 1 [facility] mg tablet 4-05 tablet by ity o f 00:00: mouth [place] 00 every 6 Medical (six) Branch hours as needed for Pain (scale 7-10). Indication s: acute pain traMADoL 50 2-0 Yes 4647 50mg Take 1 [facility] mg tablet 4-05 tablet by ity o f 00:00: mouth [place] 00 every 6 Medical (six) Branch hours as needed for Pain (scale 7-10). Indication s: acute pain traMADoL 50 2-0 Yes [id number] 50mg Take 1 [facility] mg tablet 4-05 tablet by ity o f 00:00: mouth [place] 00 every 6 Medical (six) Branch hours as needed for Pain (scale 7-10). Indication s: acute pain traMADoL 50 2-0 Yes [id number] 50mg Take 1 [facility] mg tablet 4-05 tablet by ity o f 00:00: mouth [place] 00 every 6 Medical (six) Branch hours as needed for Pain (scale 7-10). Indication s: acute pain traMADoL 50 2021-0 Yes [id number] 50mg Take 1 [facility] mg tablet 4-05 tablet by ity o f 00:00: mouth [place] 00 every 6 Medical (six) Branch hours as needed for Pain (scale 7-10). Indication s: acute pain traMADoL 50 2021-0 Yes [id number] 50mg Take 1 [facility] mg tablet 4-05 tablet by ity o f 00:00: mouth [place] 00 every 6 Medical (six) Branch hours as needed for Pain (scale 7-10). Indication s: acute pain traMADoL 50 2021-0 Yes [id number] 50mg Take 1 [facility] mg tablet 4-05 tablet by ity o f 00:00: mouth [place] 00 every 6 Medical (six) Branch hours as needed for Pain (scale 7-10). Indication s: acute pain traMADoL 50 2021-0 Yes [id number] 50mg Take 1 [facility] mg tablet 4-05 tablet by ity o f 00:00: mouth [place] 00 every 6 Medical (six) Branch hours as needed for Pain (scale 7-10). Indication s: acute pain traMADoL 50 2021-0 2- No 4647 50mg Take 1 [facility] mg tablet 4-05 10-05 tablet by ity of 00:00: 00:00 mouth [place] 00 :00 every 6 Medical (six) Branch hours as needed for Pain (scale 7-10). Indication s: acute pain traMADoL 50 2021-0 2022- No 4647 50mg Take 1 [facility] mg tablet 4-05 10-05 tablet by ity of 00:00: 00:00 mouth [place] 00 :00 every 6 Medical (six) Branch hours as needed for Pain (scale 7-10). Indication s: acute pain traMADoL 50 2021-0 2- No 4647 50mg Take 1 [facility] mg tablet 4-05 10-05 tablet by ity of 00:00: 00:00 mouth [place] 00 :00 every 6 Medical (six) Branch hours as needed for Pain (scale 7-10). Indication s: acute pain albuterol 0 Yes [id number] 2{puff} Inhale 2 [facility] (PROAIR 3-04 Puffs ity of HFA) 90 00:00: every 6 [place] mcg/actuati 00 (six) Medical on inhaler hours as Branc h needed for Wheezing or Shortness of Breath. albuterol 0 Yes [id number] 2{puff} Inhale 2 [facility] (PROAIR 3-04 Puffs ity of HFA) 90 00:00: every 6 [place] mcg/actuati 00 (six) Medical on inhaler hours as Branc h needed for Wheezing or Shortness of Breath. albuterol 0 Yes [id number] 2{puff} Inhale 2 [facility] (PROAIR 3-04 Puffs ity of HFA) 90 00:00: every 6 [place] mcg/actuati 00 (six) Medical on inhaler hours as Branc h needed for Wheezing or Shortness of Breath. albuterol 0 Yes [id number] 2{puff} Inhale 2 [facility] (PROAIR 3-04 Puffs ity of HFA) 90 00:00: every 6 [place] mcg/actuati 00 (six) Medical on inhaler hours as Branc h needed for Wheezing or Shortness of Breath. albuterol 2021-0 Yes [id number] 2{puff} Inhale 2 [facility] (PROAIR 3-04 Puffs ity of HFA) 90 00:00: every 6 [place] mcg/actuati 00 (six) Medical on inhaler hours as Branc h needed for Wheezing or Shortness of Breath. albuterol 2021-0 Yes [id number] 2{puff} Inhale 2 [facility] (PROAIR 3-04 Puffs ity of HFA) 90 00:00: every 6 [place] mcg/actuati 00 (six) Medical on inhaler hours as Branc h needed for Wheezing or Shortness of Breath. albuterol 2021-0 Yes [id number] 2{puff} Inhale 2 [facility] (PROAIR 3-04 Puffs ity of HFA) 90 00:00: every 6 [place] mcg/actuati 00 (six) Medical on inhaler hours as Branc h needed for Wheezing or Shortness of Breath. albuterol 0 Yes [id number] 2{puff} Inhale 2 [facility] (PROAIR 3-04 Puffs ity of HFA) 90 00:00: every 6 [place] mcg/actuati 00 (six) Medical on inhaler hours as Branc h needed for Wheezing or Shortness of Breath. albuterol 0 Yes [id number] 2{puff} Inhale 2 [facility] (PROAIR 3-04 Puffs ity of HFA) 90 00:00: every 6 [place] mcg/actuati 00 (six) Medical on inhaler hours as Branc h needed for Wheezing or Shortness of Breath. albuterol 2021-0 Yes [id number] 2{puff} Inhale 2 [facility] (PROAIR 3-04 Puffs ity of HFA) 90 00:00: every 6 [place] mcg/actuati 00 (six) Medical on inhaler hours as Branc h needed for Wheezing or Shortness of Breath. albuterol 0 Yes [id number] 2{puff} Inhale 2 [facility] (PROAIR 3-04 Puffs ity of HFA) 90 00:00: every 6 [place] mcg/actuati 00 (six) Medical on inhaler hours as Branc h needed for Wheezing or Shortness of Breath. albuterol 0 Yes [id number] 2{puff} Inhale 2 [facility] (PROAIR 3-04 Puffs ity of HFA) 90 00:00: every 6 [place] mcg/actuati 00 (six) Medical on inhaler hours as Branc h needed for Wheezing or Shortness of Breath. albuterol 0 Yes [id number] 2{puff} Inhale 2 [facility] (PROAIR 3-04 Puffs ity of HFA) 90 00:00: every 6 [place] mcg/actuati 00 (six) Medical on inhaler hours as Branc h needed for Wheezing or Shortness of Breath. albuterol 0 Yes [id number] 2{puff} Inhale 2 [facility] (PROAIR 3-04 Puffs ity of HFA) 90 00:00: every 6 [place] mcg/actuati 00 (six) Medical on inhaler hours as Branc h needed for Wheezing or Shortness of Breath. albuterol Yes [id number] 2{puff} Inhale 2 [facility] (PROAIR 3-04 Puffs ity of HFA) 90 00:00: every 6 [place] mcg/actuati 00 (six) Medical on inhaler hours as Branc h needed for Wheezing or Shortness of Breath. albuterol 0 Yes [id number] 2{puff} Inhale 2 [facility] (PROAIR 3-04 Puffs ity of HFA) 90 00:00: every 6 [place] mcg/actuati 00 (six) Medical on inhaler hours as Branc h needed for Wheezing or Shortness of Breath. albuterol 2021-0 Yes [id number] 2{puff} Inhale 2 [facility] (PROAIR 3-04 Puffs ity of HFA) 90 00:00: every 6 [place] mcg/actuati 00 (six) Medical on inhaler hours as Branc h needed for Wheezing or Shortness of Breath. albuterol Yes [id number] 2{puff} Inhale 2 [facility] (PROAIR 3-04 Puffs ity of HFA) 90 00:00: every 6 [place] mcg/actuati 00 (six) Medical on inhaler hours as Branc h needed for Wheezing or Shortness of Breath. albuterol 0 Yes [id number] 2{puff} Inhale 2 [facility] (PROAIR 3-04 Puffs ity of HFA) 90 00:00: every 6 [place] mcg/actuati 00 (six) Medical on inhaler hours as Branc h needed for Wheezing or Shortness of Breath. albuterol 0 Yes [id number] 2{puff} Inhale 2 [facility] (PROAIR 3-04 Puffs ity of HFA) 90 00:00: every 6 [place] mcg/actuati 00 (six) Medical on inhaler hours as Branc h needed for Wheezing or Shortness of Breath. albuterol 0 Yes [id number] 2{puff} Inhale 2 [facility] (PROAIR 3-04 Puffs ity of HFA) 90 00:00: every 6 [place] mcg/actuati 00 (six) Medical on inhaler hours as Branc h needed for Wheezing or Shortness of Breath. albuterol 0 Yes [id number] 2{puff} Inhale 2 [facility] (PROAIR 3-04 Puffs ity of HFA) 90 00:00: every 6 [place] mcg/actuati 00 (six) Medical on inhaler hours as Branc h needed for Wheezing or Shortness of Breath. albuterol 0 Yes [id number] 2{puff} Inhale 2 [facility] (PROAIR 3-04 Puffs ity of HFA) 90 00:00: every 6 [place] mcg/actuati 00 (six) Medical on inhaler hours as Branc h needed for Wheezing or Shortness of Breath. albuterol 0 Yes [id number] 2{puff} Inhale 2 [facility] (PROAIR 3-04 Puffs ity of HFA) 90 00:00: every 6 [place] mcg/actuati 00 (six) Medical on inhaler hours as Branc h needed for Wheezing or Shortness of Breath. albuterol 0 Yes [id number] 2{puff} Inhale 2 [facility] (PROAIR 3-04 Puffs ity of HFA) 90 00:00: every 6 [place] mcg/actuati 00 (six) Medical on inhaler hours as Branc h needed for Wheezing or Shortness of Breath. albuterol 0 Yes [id number] 2{puff} Inhale 2 [facility] (PROAIR 3-04 Puffs ity of HFA) 90 00:00: every 6 [place] mcg/actuati 00 (six) Medical on inhaler hours as Branc h needed for Wheezing or Shortness of Breath. albuterol 0 Yes [id number] 2{puff} Inhale 2 [facility] (PROAIR 3-04 Puffs ity of HFA) 90 00:00: every 6 [place] mcg/actuati 00 (six) Medical on inhaler hours as Branc h needed for Wheezing or Shortness of Breath. albuterol 2021-0 Yes [id number] 2{puff} Inhale 2 [facility] (PROAIR 3-04 Puffs ity of HFA) 90 00:00: every 6 [place] mcg/actuati 00 (six) Medical on inhaler hours as Branc h needed for Wheezing or Shortness of Breath. albuterol 2021-0 Yes [id number] 2{puff} Inhale 2 [facility] (PROAIR 3-04 Puffs ity of HFA) 90 00:00: every 6 [place] mcg/actuati 00 (six) Medical on inhaler hours as Branc h needed for Wheezing or Shortness of Breath. albuterol 0 Yes [id number] 2{puff} Inhale 2 [facility] (PROAIR 3-04 Puffs ity of HFA) 90 00:00: every 6 [place] mcg/actuati 00 (six) Medical on inhaler hours as Branc h needed for Wheezing or Shortness of Breath. albuterol 2021-0 Yes [id number] 2{puff} Inhale 2 [facility] (PROAIR 3-04 Puffs ity of HFA) 90 00:00: every 6 [place] mcg/actuati 00 (six) Medical on inhaler hours as Branc h needed for Wheezing or Shortness of Breath. albuterol 0 Yes [id number] 2{puff} Inhale 2 [facility] (PROAIR 3-04 Puffs ity of HFA) 90 00:00: every 6 [place] mcg/actuati 00 (six) Medical on inhaler hours as Branc h needed for Wheezing or Shortness of Breath. albuterol 0 Yes [id number] 2{puff} Inhale 2 [facility] (PROAIR 3-04 Puffs ity of HFA) 90 00:00: every 6 [place] mcg/actuati 00 (six) Medical on inhaler hours as Branc h needed for Wheezing or Shortness of Breath. albuterol 2021-0 Yes [id number] 2{puff} Inhale 2 [facility] (PROAIR 3-04 Puffs ity of HFA) 90 00:00: every 6 [place] mcg/actuati 00 (six) Medical on inhaler hours as Branc h needed for Wheezing or Shortness of Breath. albuterol 2021-0 Yes [id number] 2{puff} Inhale 2 [facility] (PROAIR 3-04 Puffs ity of HFA) 90 00:00: every 6 [place] mcg/actuati 00 (six) Medical on inhaler hours as Branc h needed for Wheezing or Shortness of Breath. albuterol 2021-0 Yes [id number] 2{puff} Inhale 2 [facility] (PROAIR 3-04 Puffs ity of HFA) 90 00:00: every 6 [place] mcg/actuati 00 (six) Medical on inhaler hours as Branc h needed for Wheezing or Shortness of Breath. albuterol Yes [id number] 2{puff} Inhale 2 [facility] (PROAIR 3-04 Puffs ity of HFA) 90 00:00: every 6 [place] mcg/actuati 00 (six) Medical on inhaler hours as Branc h needed for Wheezing or Shortness of Breath. albuterol 0 Yes [id number] 2{puff} Inhale 2 [facility] (PROAIR 3-04 Puffs ity of HFA) 90 00:00: every 6 [place] mcg/actuati 00 (six) Medical on inhaler hours as Branc h needed for Wheezing or Shortness of Breath. albuterol 0 Yes [id number] 2{puff} Inhale 2 [facility] (PROAIR 3-04 Puffs ity of HFA) 90 00:00: every 6 [place] mcg/actuati 00 (six) Medical on inhaler hours as Branc h needed for Wheezing or Shortness of Breath. albuterol Yes [id number] 2{puff} Inhale 2 [facility] (PROAIR 3-04 Puffs ity of HFA) 90 00:00: every 6 [place] mcg/actuati 00 (six) Medical on inhaler hours as Branc h needed for Wheezing or Shortness of Breath. albuterol 0 Yes [id number] 2{puff} Inhale 2 [facility] (PROAIR 3-04 Puffs ity of HFA) 90 00:00: every 6 [place] mcg/actuati 00 (six) Medical on inhaler hours as Branc h needed for Wheezing or Shortness of Breath. albuterol 0 Yes [id number] 2{puff} Inhale 2 [facility] (PROAIR 3-04 Puffs ity of HFA) 90 00:00: every 6 [place] mcg/actuati 00 (six) Medical on inhaler hours as Branc h needed for Wheezing or Shortness of Breath. albuterol 0 Yes [id number] 2{puff} Inhale 2 [facility] (PROAIR 3-04 Puffs ity of HFA) 90 00:00: every 6 [place] mcg/actuati 00 (six) Medical on inhaler hours as Branc h needed for Wheezing or Shortness of Breath. albuterol Yes [id number] 2{puff} Inhale 2 [facility] (PROAIR 3-04 Puffs ity of HFA) 90 00:00: every 6 [place] mcg/actuati 00 (six) Medical on inhaler hours as Branc h needed for Wheezing or Shortness of Breath. albuterol 0 Yes [id number] 2{puff} Inhale 2 [facility] (PROAIR 3-04 Puffs ity of HFA) 90 00:00: every 6 [place] mcg/actuati 00 (six) Medical on inhaler hours as Branc h needed for Wheezing or Shortness of Breath. albuterol 2021-0 Yes [id number] 2{puff} Inhale 2 [facility] (PROAIR 3-04 Puffs ity of HFA) 90 00:00: every 6 [place] mcg/actuati 00 (six) Medical on inhaler hours as Branc h needed for Wheezing or Shortness of Breath. albuterol 0 Yes [id number] 2{puff} Inhale 2 [facility] (PROAIR 3-04 Puffs ity of HFA) 90 00:00: every 6 [place] mcg/actuati 00 (six) Medical on inhaler hours as Branc h needed for Wheezing or Shortness of Breath. albuterol 0 Yes [id number] 2{puff} Inhale 2 [facility] (PROAIR 3-04 Puffs ity of HFA) 90 00:00: every 6 [place] mcg/actuati 00 (six) Medical on inhaler hours as Branc h needed for Wheezing or Shortness of Breath. albuterol 0 Yes [id number] 2{puff} Inhale 2 [facility] (PROAIR 3-04 Puffs ity of HFA) 90 00:00: every 6 [place] mcg/actuati 00 (six) Medical on inhaler hours as Branc h needed for Wheezing or Shortness of Breath. albuterol 0 Yes [id number] 2{puff} Inhale 2 [facility] (PROAIR 3-04 Puffs ity of HFA) 90 00:00: every 6 [place] mcg/actuati 00 (six) Medical on inhaler hours as Branc h needed for Wheezing or Shortness of Breath. albuterol 0 Yes [id number] 2{puff} Inhale 2 [facility] (PROAIR 3-04 Puffs ity of HFA) 90 00:00: every 6 [place] mcg/actuati 00 (six) Medical on inhaler hours as Branc h needed for Wheezing or Shortness of Breath. albuterol 0 Yes [id number] 2{puff} Inhale 2 [facility] (PROAIR 3-04 Puffs ity of HFA) 90 00:00: every 6 [place] mcg/actuati 00 (six) Medical on inhaler hours as Branc h needed for Wheezing or Shortness of Breath. albuterol 2021-0 Yes [id number] 2{puff} Inhale 2 [facility] (PROAIR 3-04 Puffs ity of HFA) 90 00:00: every 6 [place] mcg/actuati 00 (six) Medical on inhaler hours as Branc h needed for Wheezing or Shortness of Breath. albuterol 2021-0 Yes [id number] 2{puff} Inhale 2 [facility] (PROAIR 3-04 Puffs ity of HFA) 90 00:00: every 6 [place] mcg/actuati 00 (six) Medical on inhaler hours as Branc h needed for Wheezing or Shortness of Breath. albuterol 0 Yes [id number] 2{puff} Inhale 2 [facility] (PROAIR 3-04 Puffs ity of HFA) 90 00:00: every 6 [place] mcg/actuati 00 (six) Medical on inhaler hours as Branc h needed for Wheezing or Shortness of Breath. albuterol 0 Yes [id number] 2{puff} Inhale 2 [facility] (PROAIR 3-04 Puffs ity of HFA) 90 00:00: every 6 [place] mcg/actuati 00 (six) Medical on inhaler hours as Branc h needed for Wheezing or Shortness of Breath. albuterol 2021-0 Yes [id number] 2{puff} Inhale 2 [facility] (PROAIR 3-04 Puffs ity of HFA) 90 00:00: every 6 [place] mcg/actuati 00 (six) Medical on inhaler hours as Branc h needed for Wheezing or Shortness of Breath. albuterol 2021-0 Yes [id number] 2{puff} Inhale 2 [facility] (PROAIR 3-04 Puffs ity of HFA) 90 00:00: every 6 [place] mcg/actuati 00 (six) Medical on inhaler hours as Branc h needed for Wheezing or Shortness of Breath. albuterol 2021-0 Yes [id number] 2{puff} Inhale 2 [facility] (PROAIR 3-04 Puffs ity of HFA) 90 00:00: every 6 [place] mcg/actuati 00 (six) Medical on inhaler hours as Branc h needed for Wheezing or Shortness of Breath. albuterol 2021-0 Yes [id number] 2{puff} Inhale 2 [facility] (PROAIR 3-04 Puffs ity of HFA) 90 00:00: every 6 [place] mcg/actuati 00 (six) Medical on inhaler hours as Branc h needed for Wheezing or Shortness of Breath. albuterol 2021-0 Yes [id number] 2{puff} Inhale 2 [facility] (PROAIR 3-04 Puffs ity of HFA) 90 00:00: every 6 [place] mcg/actuati 00 (six) Medical on inhaler hours as Branc h needed for Wheezing or Shortness of Breath. albuterol 0 Yes [id number] 2{puff} Inhale 2 [facility] (PROAIR 3-04 Puffs ity of HFA) 90 00:00: every 6 [place] mcg/actuati 00 (six) Medical on inhaler hours as Branc h needed for Wheezing or Shortness of Breath. albuterol 2021-0 Yes [id number] 2{puff} Inhale 2 [facility] (PROAIR 3-04 Puffs ity of HFA) 90 00:00: every 6 [place] mcg/actuati 00 (six) Medical on inhaler hours as Branc h needed for Wheezing or Shortness of Breath. albuterol 2021-0 Yes [id number] 2{puff} Inhale 2 [facility] (PROAIR 3-04 Puffs ity of HFA) 90 00:00: every 6 [place] mcg/actuati 00 (six) Medical on inhaler hours as Branc h needed for Wheezing or Shortness of Breath. albuterol 2021-0 Yes [id number] 2{puff} Inhale 2 [facility] (PROAIR 3-04 Puffs ity of HFA) 90 00:00: every 6 [place] mcg/actuati 00 (six) Medical on inhaler hours as Branc h needed for Wheezing or Shortness of Breath. albuterol 0 Yes [id number] 2{puff} Inhale 2 [facility] (PROAIR 3-04 Puffs ity of HFA) 90 00:00: every 6 [place] mcg/actuati 00 (six) Medical on inhaler hours as Branc h needed for Wheezing or Shortness of Breath. albuterol 0 Yes [id number] 2{puff} Inhale 2 [facility] (PROAIR 3-04 Puffs ity of HFA) 90 00:00: every 6 [place] mcg/actuati 00 (six) Medical on inhaler hours as Branc h needed for Wheezing or Shortness of Breath. albuterol 0 Yes [id number] 2{puff} Inhale 2 [facility] (PROAIR 3-04 Puffs ity of HFA) 90 00:00: every 6 [place] mcg/actuati 00 (six) Medical on inhaler hours as Branc h needed for Wheezing or Shortness of Breath. albuterol Yes [id number] 2{puff} Inhale 2 [facility] (PROAIR 3-04 Puffs ity of HFA) 90 00:00: every 6 [place] mcg/actuati 00 (six) Medical on inhaler hours as Branc h needed for Wheezing or Shortness of Breath. albuterol 0 Yes [id number] 2{puff} Inhale 2 [facility] (PROAIR 3-04 Puffs ity of HFA) 90 00:00: every 6 [place] mcg/actuati 00 (six) Medical on inhaler hours as Branc h needed for Wheezing or Shortness of Breath. albuterol 0 Yes [id number] 2{puff} Inhale 2 [facility] (PROAIR 3-04 Puffs ity of HFA) 90 00:00: every 6 [place] mcg/actuati 00 (six) Medical on inhaler hours as Branc h needed for Wheezing or Shortness of Breath. albuterol 0 Yes [id number] 2{puff} Inhale 2 [facility] (PROAIR 3-04 Puffs ity of HFA) 90 00:00: every 6 [place] mcg/actuati 00 (six) Medical on inhaler hours as Branc h needed for Wheezing or Shortness of Breath. albuterol Yes [id number] 2{puff} Inhale 2 [facility] (PROAIR 3-04 Puffs ity of HFA) 90 00:00: every 6 [place] mcg/actuati 00 (six) Medical on inhaler hours as Branc h needed for Wheezing or Shortness of Breath. albuterol 0 Yes [id number] 2{puff} Inhale 2 [facility] (PROAIR 3-04 Puffs ity of HFA) 90 00:00: every 6 [place] mcg/actuati 00 (six) Medical on inhaler hours as Branc h needed for Wheezing or Shortness of Breath. albuterol 0 Yes [id number] 2{puff} Inhale 2 [facility] (PROAIR 3-04 Puffs ity of HFA) 90 00:00: every 6 [place] mcg/actuati 00 (six) Medical on inhaler hours as Branc h needed for Wheezing or Shortness of Breath. albuterol Yes [id number] 2{puff} Inhale 2 [facility] (PROAIR 3-04 Puffs ity of HFA) 90 00:00: every 6 [place] mcg/actuati 00 (six) Medical on inhaler hours as Branc h needed for Wheezing or Shortness of Breath. albuterol Yes [id number] 2{puff} Inhale 2 [facility] (PROAIR 3-04 Puffs ity of HFA) 90 00:00: every 6 [place] mcg/actuati 00 (six) Medical on inhaler hours as Branc h needed for Wheezing or Shortness of Breath. albuterol 0 Yes [id number] 2{puff} Inhale 2 [facility] (PROAIR 3-04 Puffs ity of HFA) 90 00:00: every 6 [place] mcg/actuati 00 (six) Medical on inhaler hours as Branc h needed for Wheezing or Shortness of Breath. albuterol 0 Yes [id number] 2{puff} Inhale 2 [facility] (PROAIR 3-04 Puffs ity of HFA) 90 00:00: every 6 [place] mcg/actuati 00 (six) Medical on inhaler hours as Branc h needed for Wheezing or Shortness of Breath. albuterol 0 Yes [id number] 2{puff} Inhale 2 [facility] (PROAIR 3-04 Puffs ity of HFA) 90 00:00: every 6 [place] mcg/actuati 00 (six) Medical on inhaler hours as Branc h needed for Wheezing or Shortness of Breath. albuterol Yes [id number] 2{puff} Inhale 2 [facility] (PROAIR 3-04 Puffs ity of HFA) 90 00:00: every 6 [place] mcg/actuati 00 (six) Medical on inhaler hours as Branc h needed for Wheezing or Shortness of Breath. albuterol Yes [id number] 2{puff} Inhale 2 [facility] (PROAIR 3-04 Puffs ity of HFA) 90 00:00: every 6 [place] mcg/actuati 00 (six) Medical on inhaler hours as Branc h needed for Wheezing or Shortness of Breath. albuterol Yes [id number] 2{puff} Inhale 2 [facility] (PROAIR 3-04 Puffs ity of HFA) 90 00:00: every 6 [place] mcg/actuati 00 (six) Medical on inhaler hours as Branc h needed for Wheezing or Shortness of Breath. albuterol Yes [id number] 2{puff} Inhale 2 [facility] (PROAIR 3-04 Puffs ity of HFA) 90 00:00: every 6 [place] mcg/actuati 00 (six) Medical on inhaler hours as Branc h needed for Wheezing or Shortness of Breath. albuterol 3- No [id number] 2{puff} Inhale 2 [facility] (PROAIR 3-04 02-06 Puffs ity of HFA) 90 00:00: 00:00 every 6 [place] mcg/actuati 00 :00 (six) Medical on inhaler hours as Branc h needed for Wheezing or Shortness of Breath. ezetimibe 0 Yes [id number] 10mg Take 1 Un trudy 10 mg 2-06 tablet by [facility] of tablet 00:00: mouth [place] 00 daily. Medical REPLACES Branch ROSUVASTAT IN. ezetimibe 0 Yes [id number] 10mg Take 1 Un trudy 10 mg 2-06 tablet by ity of tablet 00:00: mouth [place] 00 daily. Medical REPLACES Branch ROSUVASTAT IN. ezetimibe 2-0 Yes [id number] 10mg Take 1 Un trudy 10 mg 2-06 tablet by ity of tablet 00:00: mouth [place] 00 daily. Medical REPLACES Branch ROSUVASTAT IN. ezetimibe 2021-0 Yes [id number] 10mg Take 1 Un trudy 10 mg 2-06 tablet by [facility]y of tablet 00:00: mouth [place] 00 daily. Medical REPLACES Branch ROSUVASTAT IN. ezetimibe 2021-0 Yes [id number] 10mg Take 1 Un trudy 10 mg 2-06 tablet by [facility]y of tablet 00:00: mouth [place] 00 daily. Medical REPLACES Branch ROSUVASTAT IN. ezetimibe 2021-0 Yes [id number] 10mg Take 1 Un trudy 10 mg 2-06 tablet by ity of tablet 00:00: mouth [place] 00 daily. Medical REPLACES Branch ROSUVASTAT IN. ezetimibe 2021-0 Yes [id number] 10mg Take 1 Un trudy 10 mg 2-06 tablet by ity of tablet 00:00: mouth [place] 00 daily. Medical REPLACES Branch ROSUVASTAT IN. ezetimibe 2021-0 Yes [id number] 10mg Take 1 Un trudy 10 mg 2-06 tablet by ity of tablet 00:00: mouth [place] 00 daily. Medical REPLACES Branch ROSUVASTAT IN. ezetimibe 2021-0 Yes [id number] 10mg Take 1 Un trudy 10 mg 2-06 tablet by ity of tablet 00:00: mouth [place] 00 daily. Medical REPLACES Branch ROSUVASTAT IN. ezetimibe 2021-0 Yes [id number] 10mg Take 1 Un trudy 10 mg 2-06 tablet by ity of tablet 00:00: mouth [place] 00 daily. Medical REPLACES Branch ROSUVASTAT IN. ezetimibe 2-0 Yes [id number] 10mg Take 1 Un trudy 10 mg 2-06 tablet by ity of tablet 00:00: mouth [place] 00 daily. Medical REPLACES Branch ROSUVASTAT IN. ezetimibe 2-0 Yes [id number] 10mg Take 1 Un trudy 10 mg 2-06 tablet by ity of tablet 00:00: mouth [place] 00 daily. Medical REPLACES Branch ROSUVASTAT IN. ezetimibe 2021-0 Yes [id number] 10mg Take 1 Un trudy 10 mg 2-06 tablet by ity of tablet 00:00: mouth [place] 00 daily. Medical REPLACES Branch ROSUVASTAT IN. ezetimibe 2-0 Yes [id number] 10mg Take 1 Un trudy 10 mg 2-06 tablet by ity of tablet 00:00: mouth [place] 00 daily. Medical REPLACES Branch ROSUVASTAT IN. ezetimibe 2021-0 Yes [id number] 10mg Take 1 Un trudy 10 mg 2-06 tablet by ity of tablet 00:00: mouth [place] 00 daily. Medical REPLACES Branch ROSUVASTAT IN. ezetimibe 2021-0 Yes [id number] 10mg Take 1 Un trudy 10 mg 2-06 tablet by ity of tablet 00:00: mouth [place] 00 daily. Medical REPLACES Branch ROSUVASTAT IN. ezetimibe 2021-0 Yes [id number] 10mg Take 1 Un trudy 10 mg 2-06 tablet by ity of tablet 00:00: mouth [place] 00 daily. Medical REPLACES Branch ROSUVASTAT IN. ezetimibe 2021-0 Yes [id number] 10mg Take 1 Un trudy 10 mg 2-06 tablet by ity of tablet 00:00: mouth [place] 00 daily. Medical REPLACES Branch ROSUVASTAT IN. ezetimibe 2021-0 Yes [id number] 10mg Take 1 Un trudy 10 mg 2-06 tablet by ity of tablet 00:00: mouth [place] 00 daily. Medical REPLACES Branch ROSUVASTAT IN. ezetimibe 2021-0 Yes [id number] 10mg Take 1 Un trudy 10 mg 2-06 tablet by ity of tablet 00:00: mouth [place] 00 daily. Medical REPLACES Branch ROSUVASTAT IN. ezetimibe 2021-0 Yes [id number] 10mg Take 1 Un trudy 10 mg 2-06 tablet by ity of tablet 00:00: mouth [place] 00 daily. Medical REPLACES Branch ROSUVASTAT IN. ezetimibe 2-0 Yes [id number] 10mg Take 1 Un trudy 10 mg 2-06 tablet by ity of tablet 00:00: mouth [place] 00 daily. Medical REPLACES Branch ROSUVASTAT IN. ezetimibe 2021-0 Yes [id number] 10mg Take 1 Un tr[facility] 10 mg 2-06 tablet by [facility] tablet 00:00: mouth [place] 00 daily. Medical REPLACES [facility] ROSUVASTAT IN. ezetimibe 2022-0 Yes [id number] 10mg Take 1 Un trud[facility] 10 mg 2-06 tablet by [facility] tablet 00:00: mouth [place] 00 daily. Medical REPLACES [facility] ROSUVASTAT IN. ezetimibe 2022-0 Yes [id number] 10mg Take 1 Un trudy 10 mg 2-06 tablet by [facility] tablet 00:00: mouth [place] 00 daily. Medical REPLACES [facility] ROSUVASTAT IN. ezetimibe 2022-0 Yes [id number] 10mg Take 1 Un trudy 10 mg 2-06 tablet by [facility] tablet 00:00: mouth [place] 00 daily. Medical REPLACES [facility] ROSUVASTAT IN. ezetimibe 2-0 Yes [id number] 10mg Take 1 Un tr[facility] 10 mg 2-06 tablet by [facility] tablet 00:00: mouth [place] 00 daily. Medical REPLACES [facility] ROSUVASTAT IN. ezetimibe 2-0 Yes [id number] 10mg Take 1 Un trud[facility] 10 mg 2-06 tablet by [facility] of tablet 00:00: mouth [place] 00 daily. Medical REPLACES [facility] ROSUVASTAT IN. ezetimibe 2-0 Yes [id number] 10mg Take 1 Un trud[facility] 10 mg 2-06 tablet by [facility]y of tablet 00:00: mouth [place] 00 daily. [facility] ROSUVASTAT IN. ezetimibe 2022-0 Yes [id number] 10mg Take 1 [facility] 10 mg 2-06 tablet by [facility] tablet 00:00: mouth [place] 00 daily. [facility] ROS[facility]ASTAT IN. ezetimibe 2022-0 Yes [id number] 10mg Take 1 [facility] 10 mg 2-06 tablet by [facility] tablet 00:00: mouth [place] 00 daily. [facility] ROS[facility] IN. ezetimibe 2022-0 Yes [id number] 10mg Take 1 [facility] 10 mg 2-06 tablet by [facility] tablet 00:00: mouth [place] 00 daily. [facility] ROS[facility] IN. ezetimibe 2022-0 Yes [id number] 10mg Take 1 [facility] 10 mg 2-06 tablet by [facility] tablet 00:00: mouth [place] 00 daily. [facility] ROSUVASTAT IN. ezetimibe 2022-0 Yes [id number] 10mg Take 1 [facility] 10 mg 2-06 tablet by [facility] tablet 00:00: mouth [place] 00 daily. [facility] ROSUVASTAT IN. ezetimibe 2022-0 Yes [id number] 10mg Take 1 [facility] 10 mg 2-06 tablet by [facility] tablet 00:00: mouth [place] 00 daily. [facility] ROSUVA[facility] IN. ezetimibe 2022-0 Yes [id number] 10mg Take 1 [facility] 10 mg 2-06 tablet by [facility] tablet 00:00: mouth [place] 00 daily. [facility] ROSUVASTAT IN. ezetimibe 2-0 Yes [id number] 10mg Take 1 [facility] 10 mg 2-06 tablet by [facility] tablet 00:00: mouth [place] 00 daily. [facility] ROSUVA[facility] IN. ezetimibe 2-0 Yes [id number] 10mg Take 1 [facility] 10 mg 2-06 tablet by [facility] tablet 00:00: mouth [place] 00 daily. [facility] ROS[facility]ASTAT IN. ezetimibe 2-0 Yes [id number] 10mg Take 1 [facility] 10 mg 2-06 tablet by [facility] tablet 00:00: mouth [place] 00 daily. [facility] ROSUVASTAT IN. ezetimibe 2022-0 Yes [id number] 10mg Take 1 [facility] 10 mg 2-06 tablet by [facility] tablet 00:00: mouth [place] 00 daily. [facility] ROSUVASTAT IN. ezetimibe 2022-0 Yes [id number] 10mg Take 1 [facility] 10 mg 2-06 tablet by [facility] tablet 00:00: mouth [place] 00 daily. [facility] ROSUVASTAT IN. ezetimibe 2022-0 Yes [id number] 10mg Take 1 [facility] 10 mg 2-06 tablet by [facility] tablet 00:00: mouth [place] 00 daily. [facility] ROSUVASTAT IN. ezetimibe 2022-0 Yes [id number] 10mg Take 1 [facility] 10 mg 2-06 tablet by [facility] tablet 00:00: mouth [place] 00 daily. [facility] ROSUVASTAT IN. ezetimibe 2022-0 Yes [id number] 10mg Take 1 [facility] 10 mg 2-06 tablet by [facility] tablet 00:00: mouth [place] 00 daily. [facility] ROSUVASTAT IN. ezetimibe 2022-0 Yes [id number] 10mg Take 1 [facility] 10 mg 2-06 tablet by [facility] tablet 00:00: mouth [place] 00 daily. [facility] ROSUVASTAT IN. ezetimibe 2-0 Yes [id number] 10mg Take 1 [facility] 10 mg 2-06 tablet by [facility] tablet 00:00: mouth [place] 00 daily. [facility] ROSUVASTAT IN. ezetimibe 2-0 Yes [id number] 10mg Take 1 [facility] 10 mg 2-06 tablet by [facility] tablet 00:00: mouth [place] 00 daily. [facility] ROSUVASTAT IN. ezetimibe 2-0 Yes [id number] 10mg Take 1 [facility] 10 mg 2-06 tablet by [facility] tablet 00:00: mouth [place] 00 daily. [facility] ROSUVASTAT IN. ezetimibe 2-0 Yes [id number] 10mg Take 1 [facility] 10 mg 2-06 tablet by [facility] tablet 00:00: mouth [place] 00 daily. [facility] ROSUVASTAT IN. ezetimibe 2022-0 Yes [id number] 10mg Take 1 [facility] 10 mg 2-06 tablet by [facility] tablet 00:00: mouth [place] 00 daily. [facility] ROSUVASTAT IN. ezetimibe 2-0 Yes [id number] 10mg Take 1 [facility] 10 mg 2-06 tablet by [facility] tablet 00:00: mouth [place] 00 daily. [facility] ROSUVASTAT IN. ezetimibe 2022-0 Yes [id number] 10mg Take 1 [facility] 10 mg 2-06 tablet by [facility] tablet 00:00: mouth [place] 00 daily. [facility] ROSUVASTAT IN. ezetimibe 2022-0 Yes [id number] 10mg Take 1 [facility] 10 mg 2-06 tablet by [facility] tablet 00:00: mouth [place] 00 daily. [facility] ROSUVASTAT IN. ezetimibe 2-0 Yes [id number] 10mg Take 1 [facility] 10 mg 2-06 tablet by [facility] tablet 00:00: mouth [place] 00 daily. [facility] ROSUVASTAT IN. ezetimibe 2021-0 Yes [id number] 10mg Take 1 [facility] 10 mg 2-06 tablet by [facility] tablet 00:00: mouth [place] 00 daily. [facility] ROSUVASTAT IN. ezetimibe 2021-0 Yes [id number] 10mg Take 1 [facility] 10 mg 2-06 tablet by [facility] tablet 00:00: mouth [place] 00 daily. [facility] ROSUVASTAT IN. ezetimibe 2021-0 Yes [id number] 10mg Take 1 [facility] 10 mg 2-06 tablet by [facility] tablet 00:00: mouth [place] 00 daily. [facility] ROSUVASTAT IN. ezetimibe 2021-0 Yes [id number] 10mg Take 1 [facility] 10 mg 2-06 tablet by [facility] tablet 00:00: mouth [place] 00 daily. [facility] ROSUVASTAT IN. ezetimibe 2021-0 Yes [id number] 10mg Take 1 [facility] 10 mg 2-06 tablet by [facility] tablet 00:00: mouth [place] 00 daily. [facility] ROSUVASTAT IN. ezetimibe 2021-0 Yes [id number] 10mg Take 1 [facility] 10 mg 2-06 tablet by [facility] tablet 00:00: mouth [place] 00 daily. [facility] ROSUVA[facility] IN. ezetimibe 2-0 Yes [id number] 10mg Take 1 [facility] 10 mg 2-06 tablet by [facility] tablet 00:00: mouth [place] 00 daily. [facility] ROSUVA[facility] IN. ezetimibe 2-0 Yes [id number] 10mg Take 1 [facility] 10 mg 2-06 tablet by [facility] tablet 00:00: mouth [place] 00 daily. [facility] ROSUVASTAT IN. ezetimibe 2-0 Yes [id number] 10mg Take 1 [facility] 10 mg 2-06 tablet by [facility] tablet 00:00: mouth [place] 00 daily. [facility] ROSUVASTAT IN. ezetimibe 2022-0 Yes [id number] 10mg Take 1 [facility] 10 mg 2-06 tablet by [facility] tablet 00:00: mouth [place] 00 daily. [facility] ROSUVA[facility] IN. ezetimibe 2-0 Yes [id number] 10mg Take 1 [facility] 10 mg 2-06 tablet by [facility] tablet 00:00: mouth [place] 00 daily. [facility] ROSUVASTAT IN. ezetimibe 2021-0 Yes [id number] 10mg Take 1 [facility] 10 mg 2-06 tablet by [facility] tablet 00:00: mouth [place] 00 daily. [facility] ROSUVA[facility] IN. ezetimibe 2021-0 Yes [id number] 10mg Take 1 [facility] 10 mg 2-06 tablet by [facility] tablet 00:00: mouth [place] 00 daily. [facility] ROSUVA[facility] IN. ezetimibe 2021-0 Yes [id number] 10mg Take 1 [facility] 10 mg 2-06 tablet by [facility] tablet 00:00: mouth [place] 00 daily. [facility] ROSUVA[facility] IN. ezetimibe 2021-0 Yes [id number] 10mg Take 1 [facility] 10 mg 2-06 tablet by [facility] tablet 00:00: mouth [place] 00 daily. [facility] ROSUVA[facility] IN. ezetimibe 2021-0 Yes [id number] 10mg Take 1 [facility] 10 mg 2-06 tablet by [facility] tablet 00:00: mouth [place] 00 daily. [facility] ROS[facility] IN. ezetimibe 2021-0 Yes [id number] 10mg Take 1 [facility] 10 mg 2-06 tablet by [facility] tablet 00:00: mouth [place] 00 daily. [facility] ROSUVA[facility] IN. ezetimibe 2021-0 Yes [id number] 10mg Take 1 [facility] 10 mg 2-06 tablet by [facility] tablet 00:00: mouth [place] 00 daily. [facility] ROSUVA[facility] IN. ezetimibe 2-0 Yes [id number] 10mg Take 1 [facility] 10 mg 2-06 tablet by [facility] tablet 00:00: mouth [place] 00 daily. [facility] ROSUVA[facility] IN. ezetimibe 2021-0 Yes [id number] 10mg Take 1 [facility] 10 mg 2-06 tablet by [facility] tablet 00:00: mouth [place] 00 daily. [facility] ROSUVASTAT IN. ezetimibe 2-0 Yes [id number] 10mg Take 1 [facility] 10 mg 2-06 tablet by [facility] tablet 00:00: mouth [place] 00 daily. [facility] ROSUVASTAT IN. ezetimibe 2022-0 Yes [id number] 10mg Take 1 [facility] 10 mg 2-06 tablet by [facility] tablet 00:00: mouth [place] 00 daily. [facility] ROSUVA[facility] IN. ezetimibe 2-0 Yes [id number] 10mg Take 1 [facility] 10 mg 2-06 tablet by [facility] tablet 00:00: mouth [place] 00 daily. [facility] ROSUVA[facility] IN. ezetimibe 2-0 Yes [id number] 10mg Take 1 [facility] 10 mg 2-06 tablet by [facility] tablet 00:00: mouth [place] 00 daily. [facility] ROSUVA[facility] IN. ezetimibe 2021-0 Yes [id number] 10mg Take 1 [facility] 10 mg 2-06 tablet by [facility] tablet 00:00: mouth [place] 00 daily. [facility] ROSUVA[facility] IN. ezetimibe 2-0 Yes [id number] 10mg Take 1 [facility] 10 mg 2-06 tablet by [facility] tablet 00:00: mouth [place] 00 daily. [facility] ROSUVA[facility] IN. ezetimibe 2-0 Yes [id number] 10mg Take 1 [facility] 10 mg 2-06 tablet by [facility] tablet 00:00: mouth [place] 00 daily. [facility] ROSUVASTAT IN. ezetimibe 2022-0 Yes [id number] 10mg Take 1 [facility] 10 mg 2-06 tablet by [facility] tablet 00:00: mouth [place] 00 daily. [facility] ROSUVASTAT IN. ezetimibe 2022-0 Yes [id number] 10mg Take 1 [facility] 10 mg 2-06 tablet by [facility] tablet 00:00: mouth [place] 00 daily. [facility] ROSUVA[facility] IN. ezetimibe 2022-0 Yes [id number] 10mg Take 1 [facility] 10 mg 2-06 tablet by [facility] tablet 00:00: mouth [place] 00 daily. [facility] ROSUVA[facility] IN. ezetimibe 2022-0 Yes [id number] 10mg Take 1 [facility] 10 mg 2-06 tablet by [facility] tablet 00:00: mouth [place] 00 daily. [facility] ROSUVA[facility] IN. ezetimibe 2022-0 Yes [id number] 10mg Take 1 [facility] 10 mg 2-06 tablet by [facility] tablet 00:00: mouth [place] 00 daily. [facility] ROSUVA[facility] IN. ezetimibe 2022-0 Yes [id number] 10mg Take 1 [facility] 10 mg 2-06 tablet by [facility] tablet 00:00: mouth [place] 00 daily. [facility] ROSUVA[facility] IN. ezetimibe 2-0 Yes [id number] 10mg Take 1 [facility] 10 mg 2-06 tablet by [facility] tablet 00:00: mouth [place] 00 daily. [facility] ROSUVASTAT IN. ezetimibe 2-0 Yes [id number] 10mg Take 1 [facility] 10 mg 2-06 tablet by [facility] tablet 00:00: mouth [place] 00 daily. [facility] ROSUVASTAT IN. ezetimibe 2-0 Yes [id number] 10mg Take 1 [facility] 10 mg 2-06 tablet by [facility] tablet 00:00: mouth [place] 00 daily. [facility] ROSUVASTAT IN. ezetimibe 2022-0 Yes [id number] 10mg Take 1 [facility] 10 mg 2-06 tablet by [facility] tablet 00:00: mouth [place] 00 daily. [facility] ROSUVASTAT IN. ezetimibe 2022-0 Yes [id number] 10mg Take 1 [facility] 10 mg 2-06 tablet by [facility] tablet 00:00: mouth [place] 00 daily. [facility] ROSUVASTAT IN. ezetimibe 2022-0 Yes [id number] 10mg Take 1 [facility] 10 mg 2-06 tablet by [facility] tablet 00:00: mouth [place] 00 daily. [facility] ROSUVASTAT IN. ezetimibe 2022-0 Yes [id number] 10mg Take 1 [facility] 10 mg 2-06 tablet by [facility] tablet 00:00: mouth [place] 00 daily. [facility] ROSUVASTAT IN. ezetimibe 2-0 Yes [id number] 10mg Take 1 [facility] 10 mg 2-06 tablet by [facility] tablet 00:00: mouth [place] 00 daily. [facility] ROSUVASTAT IN. ezetimibe 2022-0 Yes [id number] 10mg Take 1 [facility] 10 mg 2-06 tablet by [facility] tablet 00:00: mouth [place] 00 daily. [facility] ROSUVASTAT IN. ezetimibe 2-0 Yes [id number] 10mg Take 1 [facility] 10 mg 2-06 tablet by [facility] tablet 00:00: mouth [place] 00 daily. [facility] ROSUVASTAT IN. ezetimibe 2-0 Yes [id number] 10mg Take 1 [facility] 10 mg 2-06 tablet by [facility] tablet 00:00: mouth [place] 00 daily. [facility] ROSUVASTAT IN. ezetimibe 2-0 Yes [id number] 10mg Take 1 [facility] 10 mg 2-06 tablet by [facility] tablet 00:00: mouth [place] 00 daily. [facility] ROSUVASTAT IN. ezetimibe 2-0 Yes [id number] 10mg Take 1 [facility] 10 mg 2-06 tablet by [facility] tablet 00:00: mouth [place] 00 daily. [facility] ROSUVASTAT IN. ezetimibe 2022-0 Yes [id number] 10mg Take 1 [facility] 10 mg 2-06 tablet by [facility] tablet 00:00: mouth [place] 00 daily. [facility] ROSUVASTAT IN. ezetimibe 2-0 Yes [id number] 10mg Take 1 [facility] 10 mg 2-06 tablet by [facility] tablet 00:00: mouth [place] 00 daily. [facility] ROSUVASTAT IN. ezetimibe 2022-0 Yes [id number] 10mg Take 1 [facility] 10 mg 2-06 tablet by [facility] tablet 00:00: mouth [place] 00 daily. [facility] ROSUVASTAT IN. ezetimibe 2022-0 Yes [id number] 10mg Take 1 [facility] 10 mg 2-06 tablet by [facility] tablet 00:00: mouth [place] 00 daily. [facility] ROSUVASTAT IN. ezetimibe 2-0 Yes [id number] 10mg Take 1 [facility] 10 mg 2-06 tablet by [facility] tablet 00:00: mouth [place] 00 daily. [facility] ROSUVASTAT IN. ezetimibe 2-0 Yes [id number] 10mg Take 1 [facility] 10 mg 2-06 tablet by [facility] tablet 00:00: mouth [place] 00 daily. [facility] ROSUVASTAT IN. ezetimibe 2-0 Yes [id number] 10mg Take 1 [facility] 10 mg 2-06 tablet by [facility] tablet 00:00: mouth [place] 00 daily. [facility] ROSUVASTAT IN. ezetimibe 2-0 Yes [id number] 10mg Take 1 [facility] 10 mg 2-06 tablet by [facility] tablet 00:00: mouth [place] 00 daily. [facility] ROSUVASTAT IN. ezetimibe 2-0 Yes [id number] 10mg Take 1 [facility] 10 mg 2-06 tablet by [facility] tablet 00:00: mouth [place] 00 daily. [facility] ROSUVASTAT IN. ezetimibe 2-0 Yes [id number] 10mg Take 1 [facility] 10 mg 2-06 tablet by [facility] tablet 00:00: mouth [place] 00 daily. [facility] ROSUVASTAT IN. ezetimibe 2-0 Yes [id number] 10mg Take 1 [facility] 10 mg 2-06 tablet by [facility] tablet 00:00: mouth [place] 00 daily. [facility] ROSUVASTAT IN. empaglifloz 2022-0 Yes [id number] 10mg Take 1 [facility] tablet by [facility] ([place]) 00:00: mouth [place] 10 mg 00 daily. [facility] empaglifloz 2022-0 Yes [id number] 10mg Take 1 [facility] 2[facility]03 tablet by [facility] ([place]) 00:00: mouth [place] 10 mg 00 daily. [facility] empaglifloz 2022-0 Yes [id number] 10mg Take 1 [facility] 2[facility]03 tablet by [facility] ([place]) 00:00: mouth [place] 10 mg 00 daily. [facility] empaglifloz 2022-0 Yes [id number] 10mg Take 1 [facility] 2[facility]03 tablet by [facility] ([place]) 00:00: mouth [place] 10 mg 00 daily. [facility] empaglifloz 2022-0 Yes [id number] 10mg Take 1 [facility] 2[facility]03 tablet by [facility] ([place]) 00:00: mouth [place] 10 mg 00 daily. [facility] empaglifloz 2022-0 Yes [id number] 10mg Take 1 [facility] 2[facility]03 tablet by [facility] ([place]) 00:00: mouth [place] 10 mg 00 daily. [facility] empaglifloz 2022-0 Yes [id number] 10mg Take 1 [facility] 2[facility]03 tablet by [facility] ([place]) 00:00: mouth [place] 10 mg 00 daily. [facility] empaglifloz 2022-0 Yes [id number] 10mg Take 1 [facility] 2[facility]03 tablet by [facility] ([place]) 00:00: mouth [place] 10 mg 00 daily. [facility] empaglifloz 2022-0 Yes [id number] 10mg Take 1 [facility] 2[facility]03 tablet by [facility] ([place]) 00:00: mouth [place] 10 mg 00 daily. [facility] empaglifloz 2022-0 Yes [id number] 10mg Take 1 [facility] 2[facility]03 tablet by [facility] ([place]) 00:00: mouth [place] 10 mg 00 daily. [facility] empaglifloz 2022-0 Yes [id number] 10mg Take 1 [facility] 2[facility]03 tablet by [facility] ([place]) 00:00: mouth [place] 10 mg 00 daily. [facility] empaglifloz 2022-0 Yes [id number] 10mg Take 1 [facility] 2[facility]03 tablet by [facility] ([place]) 00:00: mouth [place] 10 mg 00 daily. [facility] empaglifloz 2022-0 Yes [id number] 10mg Take 1 [facility] 2[facility]03 tablet by [facility] ([place]) 00:00: mouth [place] 10 mg 00 daily. [facility] empaglifloz 2022-0 Yes [id number] 10mg Take 1 [facility] 2[facility]03 tablet by [facility] ([place]) 00:00: mouth [place] 10 mg 00 daily. [facility] empaglifloz 2022-0 Yes [id number] 10mg Take 1 [facility] 2[facility]03 tablet by [facility] ([place]) 00:00: mouth [place] 10 mg 00 daily. [facility] empaglifloz 2022-0 Yes [id number] 10mg Take 1 [facility] 2[facility]03 tablet by [facility] ([place]) 00:00: mouth [place] 10 mg 00 daily. [facility] empaglifloz 2022-0 Yes [id number] 10mg Take 1 [facility] 2[facility]03 tablet by [facility] ([place]) 00:00: mouth [place] 10 mg 00 daily. [facility] empaglifloz 2022-0 Yes [id number] 10mg Take 1 [facility] 2[facility]03 tablet by [facility] ([place]) 00:00: mouth [place] 10 mg 00 daily. [facility] empaglifloz 2022-0 Yes [id number] 10mg Take 1 [facility] 2[facility]03 tablet by [facility] ([place]) 00:00: mouth [place] 10 mg 00 daily. [facility] empaglifloz 2022-0 Yes [id number] 10mg Take 1 [facility] 2[facility]03 tablet by [facility] ([place]) 00:00: mouth [place] 10 mg 00 daily. [facility] empaglifloz 2022-0 Yes [id number] 10mg Take 1 [facility] 2[facility]03 tablet by [facility] ([place]) 00:00: mouth [place] 10 mg 00 daily. [facility] empaglifloz 2022-0 Yes [id number] 10mg Take 1 [facility] 2[facility]03 tablet by [facility] ([place]) 00:00: mouth [place] 10 mg 00 daily. [facility] empaglifloz 2022-0 Yes [id number] 10mg Take 1 [facility] 2[facility]03 tablet by [facility] ([place]) 00:00: mouth [place] 10 mg 00 daily. [facility] empaglifloz 2022-0 Yes [id number] 10mg Take 1 [facility]03 tablet by [facility] ([place]) 00:00: mouth [place] 10 mg 00 daily. [facility] empaglifloz 2022-0 Yes [id number] 10mg Take 1 [facility] 2[facility]03 tablet by [facility] ([place]) 00:00: mouth [place] 10 mg 00 daily. [facility] empaglifloz 2022-0 Yes [id number] 10mg Take 1 [facility] 2[facility]03 tablet by [facility] ([place]) 00:00: mouth [place] 10 mg 00 daily. [facility] empaglifloz 2022-0 Yes [id number] 10mg Take 1 [facility] 2[facility]03 tablet by [facility] ([place]) 00:00: mouth [place] 10 mg 00 daily. [facility] empaglifloz 2022-0 Yes [id number] 10mg Take 1 [facility] 2[facility]03 tablet by [facility] ([place]) 00:00: mouth [place] 10 mg 00 daily. [facility] empaglifloz 2022-0 Yes [id number] 10mg Take 1 [facility] 2[facility]03 tablet by [facility] ([place]) 00:00: mouth [place] 10 mg 00 daily. [facility] empaglifloz 2022-0 Yes [id number] 10mg Take 1 [facility] 2[facility]03 tablet by [facility] ([place]) 00:00: mouth [place] 10 mg 00 daily. [facility] empaglifloz 2022-0 Yes [id number] 10mg Take 1 [facility] 2[facility]03 tablet by [facility] ([place]) 00:00: mouth [place] 10 mg 00 daily. [facility] empaglifloz 2022-0 Yes [id number] 10mg Take 1 [facility] 2[facility]03 tablet by [facility] ([place]) 00:00: mouth [place] 10 mg 00 daily. [facility] empaglifloz 2022-0 Yes [id number] 10mg Take 1 [facility] 2[facility]03 tablet by [facility] ([place]) 00:00: mouth [place] 10 mg 00 daily. [facility] empaglifloz 2022-0 Yes [id number] 10mg Take 1 [facility] 2[facility]03 tablet by [facility] ([place]) 00:00: mouth [place] 10 mg 00 daily. [facility] empaglifloz 2022-0 Yes [id number] 10mg Take 1 [facility] 2[facility]03 tablet by [facility] ([place]) 00:00: mouth [place] 10 mg 00 daily. [facility] empaglifloz 2022-0 Yes [id number] 10mg Take 1 [facility] 2[facility]03 tablet by [facility] ([place]) 00:00: mouth [place] 10 mg 00 daily. [facility] empaglifloz 2022-0 Yes [id number] 10mg Take 1 [facility] 2[facility]03 tablet by [facility] ([place]) 00:00: mouth [place] 10 mg 00 daily. [facility] empaglifloz 2022-0 Yes [id number] 10mg Take 1 [facility] 2[facility]03 tablet by [facility] ([place]) 00:00: mouth [place] 10 mg 00 daily. [facility] empaglifloz 2022-0 Yes [id number] 10mg Take 1 [facility] 2[facility]03 tablet by [facility] ([place]) 00:00: mouth [place] 10 mg 00 daily. [facility] empaglifloz 2022-0 Yes [id number] 10mg Take 1 [facility] 2[facility]03 tablet by [facility] ([place]) 00:00: mouth [place] 10 mg 00 daily. [facility] empaglifloz 2022-0 Yes [id number] 10mg Take 1 [facility] 2[facility]03 tablet by [facility] ([place]) 00:00: mouth [place] 10 mg 00 daily. [facility] empaglifloz 2022-0 Yes [id number] 10mg Take 1 [facility] 2[facility]03 tablet by [facility] ([place]) 00:00: mouth [place] 10 mg 00 daily. [facility] empaglifloz 2022-0 Yes [id number] 10mg Take 1 [facility] 2[facility]03 tablet by [facility] ([place]) 00:00: mouth [place] 10 mg 00 daily. [facility] empaglifloz 2022-0 Yes [id number] 10mg Take 1 [facility] 2[facility]03 tablet by [facility] ([place]) 00:00: mouth [place] 10 mg 00 daily. [facility] empaglifloz 2022-0 Yes [id number] 10mg Take 1 [facility] 2[facility]03 tablet by [facility] ([place]) 00:00: mouth [place] 10 mg 00 daily. [facility] empaglifloz 2022-0 Yes [id number] 10mg Take 1 [facility] 2[facility]03 tablet by [facility] ([place]) 00:00: mouth [place] 10 mg 00 daily. [facility] empaglifloz 2022-0 Yes [id number] 10mg Take 1 [facility] 2[facility]03 tablet by [facility] ([place]) 00:00: mouth [place] 10 mg 00 daily. [facility] empaglifloz 2022-0 Yes [id number] 10mg Take 1 [facility] 2[facility]03 tablet by [facility] ([place]) 00:00: mouth [place] 10 mg 00 daily. [facility] empaglifloz 2022-0 Yes [id number] 10mg Take 1 [facility] 2[facility]03 tablet by [facility] ([place]) 00:00: mouth [place] 10 mg 00 daily. [facility] empaglifloz 2022-0 Yes [id number] 10mg Take 1 [facility] 2[facility]03 tablet by [facility] ([place]) 00:00: mouth [place] 10 mg 00 daily. [facility] empaglifloz 2022-0 Yes [id number] 10mg Take 1 [facility] 2[facility]03 tablet by [facility] ([place]) 00:00: mouth [place] 10 mg 00 daily. [facility] empaglifloz 2022-0 Yes [id number] 10mg Take 1 [facility] 2[facility]03 tablet by [facility] ([place]) 00:00: mouth [place] 10 mg 00 daily. [facility] empaglifloz 2022-0 Yes [id number] 10mg Take 1 [facility] 2[facility]03 tablet by [facility] ([place]) 00:00: mouth [place] 10 mg 00 daily. [facility] empaglifloz 2022-0 Yes [id number] 10mg Take 1 [facility] 2[facility]03 tablet by [facility] ([place]) 00:00: mouth [place] 10 mg 00 daily. [facility] empaglifloz 2022-0 Yes [id number] 10mg Take 1 [facility] 2[facility]03 tablet by [facility] ([place]) 00:00: mouth [place] 10 mg 00 daily. [facility] empaglifloz 2022-0 Yes [id number] 10mg Take 1 [facility] 2[facility]03 tablet by [facility] ([place]) 00:00: mouth [place] 10 mg 00 daily. [facility] empaglifloz 2022-0 Yes [id number] 10mg Take 1 [facility] 2[facility]03 tablet by [facility] ([place]) 00:00: mouth [place] 10 mg 00 daily. [facility] empaglifloz 2022-0 Yes [id number] 10mg Take 1 [facility] 2[facility]03 tablet by [facility] ([place]) 00:00: mouth [place] 10 mg 00 daily. [facility] empaglifloz 2022-0 Yes [id number] 10mg Take 1 [facility] 2[facility]03 tablet by [facility] ([place]) 00:00: mouth [place] 10 mg 00 daily. [facility] empaglifloz 2022-0 Yes [id number] 10mg Take 1 [facility] 2[facility]03 tablet by [facility] ([place]) 00:00: mouth [place] 10 mg 00 daily. [facility] empaglifloz 2022-0 Yes [id number] 10mg Take 1 [facility] 2[facility]03 tablet by [facility] ([place]) 00:00: mouth [place] 10 mg 00 daily. [facility] empaglifloz 2022-0 Yes [id number] 10mg Take 1 [facility] 2[facility]03 tablet by [facility] ([place]) 00:00: mouth [place] 10 mg 00 daily. [facility] empaglifloz 2022-0 Yes [id number] 10mg Take 1 [facility] 2[facility]03 tablet by [facility] ([place]) 00:00: mouth [place] 10 mg 00 daily. [facility] empaglifloz 2022-0 Yes [id number] 10mg Take 1 [facility] 2[facility]03 tablet by [facility] ([place]) 00:00: mouth [place] 10 mg 00 daily. [facility] empaglifloz 2022-0 Yes [id number] 10mg Take 1 [facility] 2[facility]03 tablet by [facility] ([place]) 00:00: mouth [place] 10 mg 00 daily. [facility] empaglifloz 2022-0 Yes [id number] 10mg Take 1 [facility] 2[facility]03 tablet by [facility] ([place]) 00:00: mouth [place] 10 mg 00 daily. [facility] empaglifloz 2022-0 Yes [id number] 10mg Take 1 [facility] 2[facility]03 tablet by [facility] ([place]) 00:00: mouth [place] 10 mg 00 daily. [facility] empaglifloz 2022-0 Yes [id number] 10mg Take 1 [facility] 2[facility]03 tablet by [facility] ([place]) 00:00: mouth [place] 10 mg 00 daily. [facility] empaglifloz 2022-0 Yes [id number] 10mg Take 1 [facility] 2[facility]03 tablet by [facility] ([place]) 00:00: mouth [place] 10 mg 00 daily. [facility] empaglifloz 2022-0 Yes [id number] 10mg Take 1 [facility] 2[facility]03 tablet by [facility] ([place]) 00:00: mouth [place] 10 mg 00 daily. [facility] empaglifloz 2022-0 Yes [id number] 10mg Take 1 [facility] 2[facility]03 tablet by [facility] ([place]) 00:00: mouth [place] 10 mg 00 daily. [facility] empaglifloz 2022-0 Yes [id number] 10mg Take 1 [facility] 2[facility]03 tablet by [facility] ([place]) 00:00: mouth [place] 10 mg 00 daily. [facility] empaglifloz 2022-0 Yes [id number] 10mg Take 1 [facility] 2[facility]03 tablet by [facility] ([place]) 00:00: mouth [place] 10 mg 00 daily. [facility] empaglifloz 2022-0 Yes [id number] 10mg Take 1 [facility] 2[facility]03 tablet by [facility] ([place]) 00:00: mouth [place] 10 mg 00 daily. [facility] empaglifloz 2022-0 Yes [id number] 10mg Take 1 [facility] 2[facility]03 tablet by [facility] ([place]) 00:00: mouth [place] 10 mg 00 daily. [facility] empaglifloz 2022-0 Yes [id number] 10mg Take 1 [facility] 2[facility]03 tablet by [facility] ([place]) 00:00: mouth [place] 10 mg 00 daily. [facility] empaglifloz 2022-0 Yes [id number] 10mg Take 1 [facility] 2[facility]03 tablet by [facility] ([place]) 00:00: mouth [place] 10 mg 00 daily. [facility] empaglifloz 2022-0 Yes [id number] 10mg Take 1 [facility] 2[facility]03 tablet by [facility] ([place]) 00:00: mouth [place] 10 mg 00 daily. [facility] empaglifloz 2022-0 Yes [id number] 10mg Take 1 [facility] 2[facility]03 tablet by [facility] ([place]) 00:00: mouth [place] 10 mg 00 daily. [facility] empaglifloz 2022-0 Yes [id number] 10mg Take 1 [facility] 2[facility]03 tablet by [facility] ([place]) 00:00: mouth [place] 10 mg 00 daily. [facility] empaglifloz 2022-0 Yes [id number] 10mg Take 1 [facility] 2[facility]03 tablet by [facility] ([place]) 00:00: mouth [place] 10 mg 00 daily. [facility] empaglifloz 2022-0 Yes [id number] 10mg Take 1 [facility] 2[facility]03 tablet by [facility] ([place]) 00:00: mouth [place] 10 mg 00 daily. [facility] empaglifloz 2022-0 Yes [id number] 10mg Take 1 [facility]-03 tablet by [facility] of (JARDI[facility]) 00:00: mouth [place] 10 mg 00 daily. [facility] empaglifloz 2022-0 Yes [id number] 10mg Take 1 [facility] 2-03 tablet by [facility] of ([place]) 00:00: mouth [place] 10 mg 00 daily. [facility] empaglifloz 2022-0 Yes [id number] 10mg Take 1 [facility] in 2-03 tablet by [facility] of ([place]) 00:00: mouth [place] 10 mg 00 daily. [facility] empaglifloz 2022-0 Yes [id number] 10mg Take 1 [facility] in 2-03 tablet by [facility] of ([place]) 00:00: mouth [place] 10 mg 00 daily. [facility] empaglifloz 2022-0 Yes [id number] 10mg Take 1 [facility] in 2-03 tablet by [facility] of ([place]) 00:00: mouth [place] 10 mg 00 daily. [facility] empaglifloz 2022-0 Yes [id number] 10mg Take 1 [facility] in 2-03 tablet by [facility] of ([place]) 00:00: mouth [place] 10 mg 00 daily. [facility] empaglifloz 2022-0 Yes [id number] 10mg Take 1 [facility] in 2-03 tablet by [facility] of ([place]) 00:00: mouth [place] 10 mg 00 daily. [facility] empaglifloz 2022-0 Yes [id number] 10mg Take 1 [facility] in 2-03 tablet by [facility] of ([place]) 00:00: mouth [place] 10 mg 00 daily. [facility] empaglifloz 2022-0 Yes [id number] 10mg Take 1 [facility] in 2-03 tablet by [facility] of ([place]) 00:00: mouth [place] 10 mg 00 daily. [facility] empaglifloz 2022-0 Yes [id number] 10mg Take 1 [facility] in 2-03 tablet by [facility] of ([place]) 00:00: mouth [place] 10 mg 00 daily. [facility] empaglifloz 2022-0 Yes [id number] 10mg Take 1 [facility] in 2-03 tablet by [facility] of ([place]) 00:00: mouth [place] 10 mg 00 daily. [facility] empaglifloz 2022-0 Yes [id number] 10mg Take 1 [facility] in 2-03 tablet by [facility] of ([place]) 00:00: mouth [place] 10 mg 00 daily. [facility] empaglifloz 2022-0 Yes [id number] 10mg Take 1 [facility] in 2-03 tablet by [facility] of ([place]) 00:00: mouth [place] 10 mg 00 daily. [facility] empaglifloz 2022-0 Yes [id number] 10mg Take 1 [facility] in 2-03 tablet by [facility] of ([place]) 00:00: mouth [place] 10 mg 00 daily. [facility] empaglifloz 2022-0 Yes [id number] 10mg Take 1 [facility] in 2-03 tablet by [facility] of ([place]) 00:00: mouth [place] 10 mg 00 daily. [facility] empaglifloz 2022-0 Yes [id number] 10mg Take 1 [facility] in 2-03 tablet by [facility] of ([place]) 00:00: mouth [place] 10 mg 00 daily. [facility] empaglifloz 2022-0 Yes [id number] 10mg Take 1 [facility] in 2-03 tablet by [facility] of ([place]) 00:00: mouth [place] 10 mg 00 daily. [facility] empaglifloz 2022-0 Yes [id number] 10mg Take 1 [facility] in 2-03 tablet by [facility] of ([place]) 00:00: mouth [place] 10 mg 00 daily. [facility] empaglifloz 2022-0 Yes [id number] 10mg Take 1 [facility] in 2-03 tablet by [facility] of ([place]) 00:00: mouth [place] 10 mg 00 daily. [facility] empaglifloz 2022-0 Yes [id number] 10mg Take 1 [facility] in 2-03 tablet by [facility] of ([place]) 00:00: mouth [place] 10 mg 00 daily. [facility] empaglifloz 2022-0 Yes [id number] 10mg Take 1 [facility] in 2-03 tablet by [facility] of ([place]) 00:00: mouth [place] 10 mg 00 daily. [facility] empaglifloz 2022-0 Yes [id number] 10mg Take 1 [facility] in 2-03 tablet by [facility] of ([place]) 00:00: mouth [place] 10 mg 00 daily. [facility] empaglifloz 2022-0 Yes [id number] 10mg Take 1 [facility] in 2-03 tablet by [facility] of ([place]) 00:00: mouth [place] 10 mg 00 daily. [facility] empaglifloz 2022-0 Yes [id number] 10mg Take 1 [facility] in 2-03 tablet by [facility] of ([place]) 00:00: mouth [place] 10 mg 00 daily. [facility] empaglifloz 2022-0 Yes [id number] 10mg Take 1 [facility] in 2-03 tablet by [facility] of ([place]) 00:00: mouth [place] 10 mg 00 daily. [facility] empaglifloz 2022-0 Yes [id number] 10mg Take 1 [facility] in 2-03 tablet by [facility] of ([place]) 00:00: mouth [place] 10 mg 00 daily. [facility] empaglifloz 2022-0 Yes [id number] 10mg Take 1 [facility] in 2-03 tablet by [facility] of ([place]) 00:00: mouth [place] 10 mg 00 daily. [facility] empaglifloz 2022-0 Yes [id number] 10mg Take 1 [facility] in 2-03 tablet by [facility] of ([place]) 00:00: mouth [place] 10 mg 00 daily. [facility] empaglifloz 2022-0 Yes [id number] 10mg Take 1 [facility] in 2-03 tablet by [facility] of ([place]) 00:00: mouth [place] 10 mg 00 daily. [facility] KCL 20 mEq 2022-0 Yes 20meq Take 1 [facility] ers tablet 1-06 tablet by it[facility] of 00:00: mouth [place] 00 daily. [facility] KCL 20 mEq 2022-0 Yes 20meq Take 1 [facility] ers tablet 1-06 tablet by ity of 00:00: mouth [place] 00 daily. [facility] KCL 20 mEq 2022-0 Yes 20meq Take 1 [facility] ers tablet 1-06 tablet by ity of 00:00: mouth [place] 00 daily. [facility] KCL 20 mEq 2022-0 Yes 20meq Take 1 [facility] ers tablet 1-06 tablet by ity of 00:00: mouth [place] 00 daily. [facility] KCL 20 mEq 2022-0 Yes 20meq Take 1 [facility] ers tablet 1-06 tablet by ity of 00:00: mouth [place] 00 daily. [facility] KCL 20 mEq 2022-0 Yes 20meq Take 1 [facility] ers tablet 1-06 tablet by ity of 00:00: mouth [place] 00 daily. [facility] KCL 20 mEq 2022-0 Yes 20meq Take 1 [facility] ers tablet 1-06 tablet by ity of 00:00: mouth [place] 00 daily. [facility] KCL 20 mEq 2022-0 Yes 20meq Take 1 [facility] tablet 1-06 tablet by ity of 00:00: mouth [place] 00 daily. [facility] KCL 20 mEq 2022-0 Yes 20meq Take 1 [facility] tablet 1-06 tablet by ity of 00:00: mouth [place] 00 daily. [facility] KCL 20 mEq 2022-0 Yes 20meq Take 1 [facility] tablet 1-06 tablet by ity of 00:00: mouth [place] 00 daily. [facility] KCL 20 mEq 2022-0 Yes 20meq Take 1 [facility] tablet 1-06 tablet by ity of 00:00: mouth [place] 00 daily. [facility] KCL 20 mEq 2022-0 Yes 20meq Take 1 [facility] tablet 1-06 tablet by ity of 00:00: mouth [place] 00 daily. [facility] KCL 20 mEq 2022-0 Yes 20meq Take 1 [facility] tablet 1-06 tablet by ity of 00:00: mouth [place] 00 daily. [facility] KCL 20 mEq 2022-0 Yes 20meq Take 1 [facility] tablet 1-06 tablet by ity of 00:00: mouth [place] 00 daily. [facility] KCL 20 mEq 2022-0 Yes 20meq Take 1 [facility] tablet 1-06 tablet by ity of 00:00: mouth [place] 00 daily. [facility] KCL 20 mEq 2022-0 Yes 20meq Take 1 [facility] ers tablet 1-06 tablet by ity of 00:00: mouth [place] 00 daily. [facility] KCL 20 mEq 2022-0 Yes 20meq Take 1 [facility] tablet 1-06 tablet by ity of 00:00: mouth [place] 00 daily. [facility] KCL 20 mEq 2022-0 Yes 20meq Take 1 [facility] ers tablet 1-06 tablet by ity of 00:00: mouth [place] 00 daily. [facility] KCL 20 mEq 2022-0 Yes 20meq Take 1 [facility] tablet 1-06 tablet by ity of 00:00: mouth [place] 00 daily. [facility] KCL 20 mEq 2022-0 Yes 20meq Take 1 [facility] tablet 1-06 tablet by ity of 00:00: mouth [place] 00 daily. [facility] KCL 20 mEq 2022-0 Yes 20meq Take 1 [facility] tablet 1-06 tablet by ity of 00:00: mouth [place] 00 daily. [facility] KCL 20 mEq 2022-0 Yes 20meq Take 1 [facility] ers tablet 1-06 tablet by ity of 00:00: mouth [place] 00 daily. [facility] KCL 20 mEq 2022-0 Yes 20meq Take 1 [facility] ers tablet 1-06 tablet by ity of 00:00: mouth [place] 00 daily. [facility] KCL 20 mEq 2022-0 Yes 20meq Take 1 [facility] tablet 1-06 tablet by ity of 00:00: mouth [place] 00 daily. [facility] KCL 20 mEq 2022-0 Yes 20meq Take 1 [facility] ers tablet 1-06 tablet by ity of 00:00: mouth [place] 00 daily. [facility] KCL 20 mEq 2022-0 Yes 20meq Take 1 [facility] tablet 1-06 tablet by ity of 00:00: mouth [place] 00 daily. [facility] KCL 20 mEq 2022-0 Yes 20meq Take 1 [facility] tablet 1-06 tablet by ity of 00:00: mouth [place] 00 daily. [facility] KCL 20 mEq 2022-0 Yes 20meq Take 1 [facility] tablet 1-06 tablet by it[facility] of 00:00: mouth [place] 00 daily. [facility] KCL 20 mEq 2022-0 Yes 20meq Take 1 [facility] tablet 1-06 tablet by [facility] of 00:00: mouth [place] 00 daily. [facility] KCL 20 mEq 2022-0 Yes 20meq Take 1 [facility] tablet 1-06 tablet by ity of 00:00: mouth [place] 00 daily. [facility] KCL 20 mEq 2022-0 Yes 20meq Take 1 [facility] tablet 1-06 tablet by ity of 00:00: mouth [place] 00 daily. [facility] KCL 20 mEq 2022-0 Yes 20meq Take 1 [facility] tablet 1-06 tablet by ity of 00:00: mouth [place] 00 daily. [facility] KCL 20 mEq 2022-0 Yes 20meq Take 1 [facility] tablet 1-06 tablet by ity of 00:00: mouth [place] 00 daily. [facility] KCL 20 mEq 2022-0 Yes 20meq Take 1 [facility] tablet 1-06 tablet by ity of 00:00: mouth [place] 00 daily. [facility] KCL 20 mEq 2022-0 Yes 20meq Take 1 [facility] tablet 1-06 tablet by ity of 00:00: mouth [place] 00 daily. [facility] KCL 20 mEq 2022-0 Yes 20meq Take 1 [facility] ers tablet 1-06 tablet by ity of 00:00: mouth [place] 00 daily. [facility] KCL 20 mEq 2022-0 Yes 20meq Take 1 [facility] tablet 1-06 tablet by ity of 00:00: mouth [place] 00 daily. [facility] KCL 20 mEq 2022-0 Yes 20meq Take 1 [facility] tablet 1-06 tablet by ity of 00:00: mouth [place] 00 daily. [facility] KCL 20 mEq 2022-0 Yes 20meq Take 1 [facility] tablet 1-06 tablet by ity of 00:00: mouth [place] 00 daily. [facility] KCL 20 mEq 2022-0 Yes 20meq Take 1 [facility] tablet 1-06 tablet by ity of 00:00: mouth [place] 00 daily. [facility] KCL 20 mEq 2022-0 Yes 20meq Take 1 [facility] tablet 1-06 tablet by ity of 00:00: mouth [place] 00 daily. [facility] KCL 20 mEq 2022-0 Yes 20meq Take 1 [facility] tablet 1-06 tablet by ity of 00:00: mouth [place] 00 daily. [facility] KCL 20 mEq 2022-0 Yes 20meq Take 1 [facility] tablet 1-06 tablet by ity of 00:00: mouth [place] 00 daily. [facility] KCL 20 mEq 2022-0 Yes 20meq Take 1 [facility] tablet 1-06 tablet by ity of 00:00: mouth [place] 00 daily. [facility] KCL 20 mEq 2022-0 Yes 20meq Take 1 [facility] tablet 1-06 tablet by ity of 00:00: mouth [place] 00 daily. [facility] KCL 20 mEq 2022-0 Yes 20meq Take 1 [facility] tablet 1-06 tablet by ity of 00:00: mouth [place] 00 daily. [facility] KCL 20 mEq 2022-0 Yes 20meq Take 1 [facility] tablet 1-06 tablet by ity of 00:00: mouth [place] 00 daily. [facility] KCL 20 mEq 2022-0 Yes 20meq Take 1 [facility] tablet 1-06 tablet by ity of 00:00: mouth [place] 00 daily. [facility] KCL 20 mEq 2022-0 Yes 20meq Take 1 [facility] tablet 1-06 tablet by ity of 00:00: mouth [place] 00 daily. [facility] KCL 20 mEq 2022-0 Yes 20meq Take 1 [facility] tablet 1-06 tablet by ity of 00:00: mouth [place] 00 daily. [facility] KCL 20 mEq 2022-0 Yes 20meq Take 1 [facility] tablet 1-06 tablet by ity of 00:00: mouth [place] 00 daily. [facility] KCL 20 mEq 2022-0 Yes 20meq Take 1 [facility] tablet 1-06 tablet by ity of 00:00: mouth [place] 00 daily. [facility] KCL 20 mEq 2022-0 Yes 20meq Take 1 [facility] tablet 1-06 tablet by ity of 00:00: mouth [place] 00 daily. [facility] KCL 20 mEq 2022-0 Yes 20meq Take 1 [facility] tablet 1-06 tablet by ity of 00:00: mouth [place] 00 daily. [facility] KCL 20 mEq 2022-0 Yes 20meq Take 1 [facility] tablet 1-06 tablet by ity of 00:00: mouth [place] 00 daily. [facility] KCL 20 mEq 2022-0 Yes 20meq Take 1 [facility] tablet 1-06 tablet by ity of 00:00: mouth [place] 00 daily. [facility] KCL 20 mEq 2022-0 Yes 20meq Take 1 [facility] tablet 1-06 tablet by ity of 00:00: mouth [place] 00 daily. [facility] KCL 20 mEq 2022-0 Yes 20meq Take 1 [facility] tablet 1-06 tablet by ity of 00:00: mouth [place] 00 daily. [facility] KCL 20 mEq 2022-0 Yes 20meq Take 1 [facility] tablet 1-06 tablet by ity of 00:00: mouth [place] 00 daily. [facility] KCL 20 mEq 2022-0 Yes 20meq Take 1 [facility] tablet 1-06 tablet by ity of 00:00: mouth [place] 00 daily. [facility] KCL 20 mEq 2022-0 Yes 20meq Take 1 [facility] tablet 1-06 tablet by ity of 00:00: mouth [place] 00 daily. [facility] KCL 20 mEq 2022-0 Yes 20meq Take 1 [facility] tablet 1-06 tablet by ity of 00:00: mouth [place] 00 daily. [facility] KCL 20 mEq 2022-0 Yes 20meq Take 1 [facility] tablet 1-06 tablet by ity of 00:00: mouth [place] 00 daily. [facility] KCL 20 mEq 2022-0 Yes 20meq Take 1 [facility] tablet 1-06 tablet by ity of 00:00: mouth [place] 00 daily. [facility] KCL 20 mEq 2022-0 Yes 20meq Take 1 [facility] tablet 1-06 tablet by ity of 00:00: mouth [place] 00 daily. [facility] KCL 20 mEq 2-0 Yes 20meq Take 1 [facility] tablet 1-06 tablet by ity of 00:00: mouth [place] 00 daily. [facility] KCL 20 mEq 2-0 Yes 20meq Take 1 [facility] tablet 1-06 tablet by ity of 00:00: mouth [place] 00 daily. [facility] KCL 20 mEq 2-0 Yes 20meq Take 1 [facility] tablet 1-06 tablet by ity of 00:00: mouth [place] 00 daily. [facility] KCL 20 mEq 2022-0 2023- No 20meq Take 1 [facility] vers tablet 08-11 tablet by ity of 00:00: 00:00 mouth [place] 00 :00 daily. [facility] KCL 20 mEq 2022-0 2023- No 20meq Take 1 [facility] vers tablet 08-11- tablet by ity of 00:00: 00:00 mouth [place] 00 :00 daily. [facility] KCL 20 mEq 2022-0 2023- No 20meq Take 1 [facility] vers tablet 08-11 tablet by ity of 00:00: 00:00 mouth [place] 00 :00 daily. [facility] fluticasone 2020-0 Yes [id number] 1{puff} Inhale 1 [facility] propion-logan 8-18 Puff every it y of meteroL 00:00: 12 [place] (ADVAIR 00 (twelve) Medical DISKUS) hours. Branch 250-50 mcg/dose inhalation disk albuterol 2020-0 Yes [id number] 2.5mg Inhale 3 [facility] 2.5 mg /3 8-18 mL every 4 ity of mL (0.083 00:00: (four) [place] %) 00 hours as Medical nebulizer needed for Bran ch solution Wheezing or Shortness of Breath. fluticasone 2020-0 Yes [id number] 1{puff} Inhale 1 [facility] propion-logan 8-18 Puff every it y of meteroL 00:00: 12 [place] (ADVAIR 00 (twelve) Medical DISKUS) hours. Branch 250-50 mcg/dose inhalation disk albuterol 2020-0 Yes [id number] 2.5mg Inhale 3 [facility] 2.5 mg /3 8-18 mL every 4 ity of mL (0.083 00:00: (four) [place] %) 00 hours as Medical nebulizer needed for Bran ch solution Wheezing or Shortness of Breath. fluticasone 2021-0 Yes [id number] 1{puff} Inhale 1 [facility] propion-logan 8-18 Puff every it y of meteroL 00:00: 12 [place] (ADVAIR 00 (twelve) Medical DISKUS) hours. Branch 250-50 mcg/dose inhalation disk albuterol 2021-0 Yes [id number] 2.5mg Inhale 3 [facility] 2.5 mg /3 8-18 mL every 4 ity of mL (0.083 00:00: (four) [place] %) 00 hours as Medical nebulizer needed for Bran ch solution Wheezing or Shortness of Breath. fluticasone 2021-0 Yes [id number] 1{puff} Inhale 1 [facility] propion-logan 8-18 Puff every it y of meteroL 00:00: 12 [place] (ADVAIR 00 (twelve) Medical DISKUS) hours. Branch 250-50 mcg/dose inhalation disk albuterol 202-0 Yes [id number] 2.5mg Inhale 3 [facility] 2.5 mg /3 8-18 mL every 4 ity of mL (0.083 00:00: (four) [place] %) 00 hours as Medical nebulizer needed for Bran ch solution Wheezing or Shortness of Breath. fluticasone 2021-0 Yes [id number] 1{puff} Inhale 1 [facility] propion-logan 8-18 Puff every it y of meteroL 00:00: 12 [place] (ADVAIR 00 (twelve) Medical DISKUS) hours. Branch 250-50 mcg/dose inhalation disk albuterol 2021-0 Yes [id number] 2.5mg Inhale 3 [facility] 2.5 mg /3 8-18 mL every 4 ity of mL (0.083 00:00: (four) [place] %) 00 hours as Medical nebulizer needed for Bran ch solution Wheezing or Shortness of Breath. fluticasone 2021-0 Yes [id number] 1{puff} Inhale 1 [facility] propion-logan 8-18 Puff every it y of meteroL 00:00: 12 [place] (ADVAIR 00 (twelve) Medical DISKUS) hours. Branch 250-50 mcg/dose inhalation disk albuterol 2021-0 Yes [id number] 2.5mg Inhale 3 [facility] 2.5 mg /3 8-18 mL every 4 ity of mL (0.083 00:00: (four) [place] %) 00 hours as Medical nebulizer needed for Bran ch solution Wheezing or Shortness of Breath. fluticasone 2021-0 Yes [id number] 1{puff} Inhale 1 [facility] propion-logan 8-18 Puff every it y of meteroL 00:00: 12 [place] (ADVAIR 00 ([facility]) Medical DISKUS) hours. Branch 250-50 mcg/dose inhalation disk albuterol 2021-0 Yes [id number] 2.5mg Inhale 3 [facility] 2.5 mg /3 8-18 mL every 4 ity of mL (0.083 00:00: (four) [place] %) 00 hours as Medical nebulizer needed for Bran ch solution Wheezing or Shortness of Breath. fluticasone 1-0 Yes [id number] 1{puff} Inhale 1 [facility] propion-logan 8-18 Puff every it y of meteroL 00:00: 12 [place] (ADVAIR ([facility]) Medical DISKUS) hours. Branch 250-50 mcg/dose inhalation disk albuterol 2021-0 Yes [id number] 2.5mg Inhale 3 [facility] 2.5 mg /3 8-18 mL every 4 ity of mL (0.083 00:00: (four) [place] %) 00 hours as Medical nebulizer needed for Bran ch solution Wheezing or Shortness of Breath. fluticasone 2021-0 Yes [id number] 1{puff} Inhale 1 [facility] propion-logan 8-18 Puff every it y of meteroL 00:00: 12 [place] (ADVAIR 00 (twelve) Medical DISKUS) hours. Branch 250-50 mcg/dose inhalation disk albuterol 2021-0 Yes [id number] 2.5mg Inhale 3 [facility] 2.5 mg /3 8-18 mL every 4 ity of mL (0.083 00:00: (four) [place] %) 00 hours as Medical nebulizer needed for Bran ch solution Wheezing or Shortness of Breath. fluticasone 2021-0 Yes [id number] 1{puff} Inhale 1 [facility] propion-logan 8-18 Puff every it y of meteroL 00:00: 12 [place] (ADVAIR 00 (twelve) Medical DISKUS) hours. Branch 250-50 mcg/dose inhalation disk albuterol 2021-0 Yes [id number] 2.5mg Inhale 3 [facility] 2.5 mg /3 8-18 mL every 4 ity of mL (0.083 00:00: (four) [place] %) 00 hours as Medical nebulizer needed for Bran ch solution Wheezing or Shortness of Breath. fluticasone 2021-0 Yes [id number] 1{puff} Inhale 1 [facility] propion-logan 8-18 Puff every it y of meteroL 00:00: 12 [place] (ADVAIR 00 (twelve) Medical DISKUS) hours. Branch 250-50 mcg/dose inhalation disk albuterol 2021-0 Yes [id number] 2.5mg Inhale 3 [facility] 2.5 mg /3 8-18 mL every 4 ity of mL (0.083 00:00: (four) [place] %) 00 hours as Medical nebulizer needed for Bran ch solution Wheezing or Shortness of Breath. fluticasone 2020-0 Yes [id number] 1{puff} Inhale 1 [facility] propion-logan 8-18 Puff every it y of meteroL 00:00: 12 [place] (ADVAIR 00 (twelve) Medical DISKUS) hours. Branch 250-50 mcg/dose inhalation disk albuterol 2021-0 Yes [id number] 2.5mg Inhale 3 [facility] 2.5 mg /3 8-18 mL every 4 ity of mL (0.083 00:00: (four) [place] %) 00 hours as Medical nebulizer needed for Bran ch solution Wheezing or Shortness of Breath. fluticasone 1-0 Yes [id number] 1{puff} Inhale 1 [facility] propion-logan 8-18 Puff every it y of meteroL 00:00: 12 [place] (ADVAIR 00 (twelve) Medical DISKUS) hours. Branch 250-50 mcg/dose inhalation disk albuterol 2021-0 Yes [id number] 2.5mg Inhale 3 [facility] 2.5 mg /3 8-18 mL every 4 ity of mL (0.083 00:00: (four) [place] %) 00 hours as Medical nebulizer needed for Bran ch solution Wheezing or Shortness of Breath. fluticasone 2021-0 Yes [id number] 1{puff} Inhale 1 [facility] propion-logan 8-18 Puff every it y of meteroL 00:00: 12 [place] (ADVAIR 00 (twelve) Medical DISKUS) hours. Branch 250-50 mcg/dose inhalation disk albuterol 2020-0 Yes [id number] 2.5mg Inhale 3 [facility] 2.5 mg /3 8-18 mL every 4 ity of mL (0.083 00:00: (four) [place] %) 00 hours as Medical nebulizer needed for Bran ch solution Wheezing or Shortness of Breath. fluticasone 2020-0 Yes [id number] 1{puff} Inhale 1 [facility] propion-logan 8-18 Puff every it y of meteroL 00:00: 12 [place] (ADVAIR 00 (twelve) Medical DISKUS) hours. Branch 250-50 mcg/dose inhalation disk albuterol 2020-0 Yes [id number] 2.5mg Inhale 3 [facility] 2.5 mg /3 8-18 mL every 4 ity of mL (0.083 00:00: (four) [place] %) 00 hours as Medical nebulizer needed for Bran ch solution Wheezing or Shortness of Breath. fluticasone 2020-0 Yes [id number] 1{puff} Inhale 1 [facility] propion-logan 8-18 Puff every it y of meteroL 00:00: 12 [place] (ADVAIR 00 (twelve) Medical DISKUS) hours. Branch 250-50 mcg/dose inhalation disk albuterol 2020-0 Yes [id number] 2.5mg Inhale 3 [facility] 2.5 mg /3 8-18 mL every 4 ity of mL (0.083 00:00: (four) [place] %) 00 hours as Medical nebulizer needed for Bran ch solution Wheezing or Shortness of Breath. fluticasone 2020-0 Yes [id number] 1{puff} Inhale 1 [facility] propion-logan 8-18 Puff every it y of meteroL 00:00: 12 [place] (ADVAIR 00 (twelve) Medical DISKUS) hours. Branch 250-50 mcg/dose inhalation disk albuterol 2020-0 Yes [id number] 2.5mg Inhale 3 [facility] 2.5 mg /3 8-18 mL every 4 ity of mL (0.083 00:00: (four) [place] %) 00 hours as Medical nebulizer needed for Bran ch solution Wheezing or Shortness of Breath. fluticasone 2021-0 Yes [id number] 1{puff} Inhale 1 [facility] propion-logan 8-18 Puff every it y of meteroL 00:00: 12 [place] (ADVAIR 00 (twelve) Medical DISKUS) hours. Branch 250-50 mcg/dose inhalation disk albuterol 2021-0 Yes [id number] 2.5mg Inhale 3 [facility] 2.5 mg /3 8-18 mL every 4 ity of mL (0.083 00:00: (four) [place] %) 00 hours as Medical nebulizer needed for Bran ch solution Wheezing or Shortness of Breath. fluticasone 2021-0 Yes [id number] 1{puff} Inhale 1 [facility] propion-logan 8-18 Puff every it y of meteroL 00:00: 12 [place] (ADVAIR 00 (twelve) Medical DISKUS) hours. Branch 250-50 mcg/dose inhalation disk albuterol 2021-0 Yes [id number] 2.5mg Inhale 3 [facility] 2.5 mg /3 8-18 mL every 4 ity of mL (0.083 00:00: (four) [place] %) 00 hours as Medical nebulizer needed for Bran ch solution Wheezing or Shortness of Breath. fluticasone 2021-0 Yes [id number] 1{puff} Inhale 1 [facility] propion-logan 8-18 Puff every it y of meteroL 00:00: 12 [place] (ADVAIR 00 (twelve) Medical DISKUS) hours. Branch 250-50 mcg/dose inhalation disk albuterol 2021-0 Yes [id number] 2.5mg Inhale 3 [facility] 2.5 mg /3 8-18 mL every 4 ity of mL (0.083 00:00: (four) [place] %) 00 hours as Medical nebulizer needed for Bran ch solution Wheezing or Shortness of Breath. fluticasone 2021-0 Yes [id number] 1{puff} Inhale 1 [facility] propion-logan 8-18 Puff every it y of meteroL 00:00: 12 [place] (ADVAIR 00 (twelve) Medical DISKUS) hours. Branch 250-50 mcg/dose inhalation disk albuterol 2021-0 Yes [id number] 2.5mg Inhale 3 [facility] 2.5 mg /3 8-18 mL every 4 ity of mL (0.083 00:00: (four) [place] %) 00 hours as Medical nebulizer needed for Bran ch solution Wheezing or Shortness of Breath. fluticasone 2020-0 Yes [id number] 1{puff} Inhale 1 [facility] propion-logan 8-18 Puff every it y of meteroL 00:00: 12 [place] (ADVAIR 00 (twelve) Medical DISKUS) hours. Branch 250-50 mcg/dose inhalation disk albuterol 2020-0 Yes [id number] 2.5mg Inhale 3 [facility] 2.5 mg /3 8-18 mL every 4 ity of mL (0.083 00:00: (four) [place] %) 00 hours as Medical nebulizer needed for Bran ch solution Wheezing or Shortness of Breath. fluticasone 2020-0 Yes [id number] 1{puff} Inhale 1 [facility] propion-logan 8-18 Puff every it y of meteroL 00:00: 12 [place] (ADVAIR 00 (twelve) Medical DISKUS) hours. Branch 250-50 mcg/dose inhalation disk albuterol 2020-0 Yes [id number] 2.5mg Inhale 3 [facility] 2.5 mg /3 8-18 mL every 4 ity of mL (0.083 00:00: (four) [place] %) 00 hours as Medical nebulizer needed for Bran ch solution Wheezing or Shortness of Breath. fluticasone 2020-0 Yes [id number] 1{puff} Inhale 1 [facility] propion-logan 8-18 Puff every it y of meteroL 00:00: 12 [place] (ADVAIR 00 (twelve) Medical DISKUS) hours. Branch 250-50 mcg/dose inhalation disk albuterol 2020-0 Yes [id number] 2.5mg Inhale 3 [facility] 2.5 mg /3 8-18 mL every 4 ity of mL (0.083 00:00: (four) [place] %) 00 hours as Medical nebulizer needed for Bran ch solution Wheezing or Shortness of Breath. fluticasone 2020-0 Yes [id number] 1{puff} Inhale 1 [facility] propion-logan 8-18 Puff every it y of meteroL 00:00: 12 [place] (ADVAIR 00 (twelve) Medical DISKUS) hours. Branch 250-50 mcg/dose inhalation disk albuterol 2021-0 Yes [id number] 2.5mg Inhale 3 [facility] 2.5 mg /3 8-18 mL every 4 ity of mL (0.083 00:00: (four) [place] %) 00 hours as Medical nebulizer needed for Bran ch solution Wheezing or Shortness of Breath. fluticasone 2021-0 Yes [id number] 1{puff} Inhale 1 [facility] propion-logan 8-18 Puff every it y of meteroL 00:00: 12 [place] (ADVAIR 00 (twelve) Medical DISKUS) hours. Branch 250-50 mcg/dose inhalation disk albuterol 2021-0 Yes [id number] 2.5mg Inhale 3 [facility] 2.5 mg /3 8-18 mL every 4 ity of mL (0.083 00:00: (four) [place] %) 00 hours as Medical nebulizer needed for Bran ch solution Wheezing or Shortness of Breath. fluticasone 1-0 Yes [id number] 1{puff} Inhale 1 [facility] propion-logan 8-18 Puff every it y of meteroL 00:00: 12 [place] (ADVAIR 00 (twelve) Medical DISKUS) hours. Branch 250-50 mcg/dose inhalation disk albuterol 2020-0 Yes [id number] 2.5mg Inhale 3 [facility] 2.5 mg /3 8-18 mL every 4 ity of mL (0.083 00:00: (four) [place] %) 00 hours as Medical nebulizer needed for Bran ch solution Wheezing or Shortness of Breath. fluticasone 1-0 Yes [id number] 1{puff} Inhale 1 [facility] propion-logan 8-18 Puff every it y of meteroL 00:00: 12 [place] (ADVAIR 00 (twelve) Medical DISKUS) hours. Branch 250-50 mcg/dose inhalation disk albuterol 2021-0 Yes [id number] 2.5mg Inhale 3 [facility] 2.5 mg /3 8-18 mL every 4 ity of mL (0.083 00:00: (four) [place] %) 00 hours as Medical nebulizer needed for Bran ch solution Wheezing or Shortness of Breath. fluticasone 2020-0 Yes [id number] 1{puff} Inhale 1 [facility] 8-18 Puff every it y of meteroL 00:00: 12 [place] (ADVAIR 00 (twelve) Medical DISKUS) hours. Branch 250-50 mcg/dose inhalation disk albuterol 2020-0 Yes [id number] 2.5mg Inhale 3 [facility] 2.5 mg /3 8-18 mL every 4 ity of mL (0.083 00:00: (four) [place] %) 00 hours as Medical nebulizer needed for Bran ch solution Wheezing or Shortness of Breath. fluticasone 2020-0 Yes [id number] 1{puff} Inhale 1 [facility] 8-18 Puff every it y of meteroL 00:00: 12 [place] (ADVAIR 00 (twelve) Medical DISKUS) hours. Branch 250-50 mcg/dose inhalation disk albuterol 2020-0 Yes [id number] 2.5mg Inhale 3 [facility] 2.5 mg /3 8-18 mL every 4 ity of mL (0.083 00:00: (four) [place] %) 00 hours as Medical nebulizer needed for Bran ch solution Wheezing or Shortness of Breath. fluticasone 2020-0 Yes [id number] 1{puff} Inhale 1 [facility] 8-18 Puff every it y of meteroL 00:00: 12 [place] (ADVAIR 00 (twelve) Medical DISKUS) hours. Branch 250-50 mcg/dose inhalation disk albuterol 2020-0 Yes [id number] 2.5mg Inhale 3 [facility] 2.5 mg /3 8-18 mL every 4 ity of mL (0.083 00:00: (four) [place] %) 00 hours as Medical nebulizer needed for Bran ch solution Wheezing or Shortness of Breath. fluticasone 2020-0 Yes [id number] 1{puff} Inhale 1 [facility] 8-18 Puff every it y of meteroL 00:00: 12 [place] (ADVAIR 00 (twelve) Medical DISKUS) hours. Branch 250-50 mcg/dose inhalation disk albuterol 202-0 Yes [id number] 2.5mg Inhale 3 [facility] 2.5 mg /3 8-18 mL every 4 ity of mL (0.083 00:00: (four) [place] %) 00 hours as Medical nebulizer needed for Bran ch solution Wheezing or Shortness of Breath. fluticasone 2021-0 Yes [id number] 1{puff} Inhale 1 [facility] 8-18 Puff every it y of meteroL 00:00: 12 [place] (ADVAIR 00 (twelve) Medical DISKUS) hours. Branch 250-50 mcg/dose inhalation disk albuterol 2021-0 Yes [id number] 2.5mg Inhale 3 [facility] 2.5 mg /3 8-18 mL every 4 ity of mL (0.083 00:00: (four) [place] %) 00 hours as Medical nebulizer needed for Bran ch solution Wheezing or Shortness of Breath. fluticasone 2020-0 Yes [id number] 1{puff} Inhale 1 [facility] 8-18 Puff every it y of meteroL 00:00: 12 [place] (ADVAIR (twelve) Medical DISKUS) hours. Branch 250-50 mcg/dose inhalation disk albuterol 2020-0 Yes [id number] 2.5mg Inhale 3 [facility] 2.5 mg /3 8-18 mL every 4 ity of mL (0.083 00:00: (four) [place] %) 00 hours as Medical nebulizer needed for Bran ch solution Wheezing or Shortness of Breath. fluticasone 1-0 Yes [id number] 1{puff} Inhale 1 [facility] 8-18 Puff every it y of meteroL 00:00: 12 [place] (ADVAIR 00 (twelve) Medical DISKUS) hours. Branch 250-50 mcg/dose inhalation disk albuterol 2021-0 Yes [id number] 2.5mg Inhale 3 [facility] 2.5 mg /3 8-18 mL every 4 ity of mL (0.083 00:00: (four) [place] %) 00 hours as Medical nebulizer needed for Bran ch solution Wheezing or Shortness of Breath. fluticasone 2021-0 Yes [id number] 1{puff} Inhale 1 [facility] 8-18 Puff every it y of meteroL 00:00: 12 [place] (ADVAIR 00 (twelve) Medical DISKUS) hours. Branch 250-50 mcg/dose inhalation disk albuterol 202-0 Yes [id number] 2.5mg Inhale 3 [facility] 2.5 mg /3 8-18 mL every 4 ity of mL (0.083 00:00: (four) [place] %) 00 hours as Medical nebulizer needed for Bran ch solution Wheezing or Shortness of Breath. fluticasone 2020-0 Yes [id number] 1{puff} Inhale 1 [facility] 8-18 Puff every it y of meteroL 00:00: 12 [place] (ADVAIR 00 (twelve) Medical DISKUS) hours. Branch 250-50 mcg/dose inhalation disk albuterol 2020-0 Yes [id number] 2.5mg Inhale 3 [facility] 2.5 mg /3 8-18 mL every 4 ity of mL (0.083 00:00: (four) [place] %) 00 hours as Medical nebulizer needed for Bran ch solution Wheezing or Shortness of Breath. fluticasone 2020-0 Yes [id number] 1{puff} Inhale 1 [facility] 8-18 Puff every it y of meteroL 00:00: 12 [place] (ADVAIR 00 (twelve) Medical DISKUS) hours. Branch 250-50 mcg/dose inhalation disk albuterol 2020-0 Yes [id number] 2.5mg Inhale 3 [facility] 2.5 mg /3 8-18 mL every 4 ity of mL (0.083 00:00: (four) [place] %) 00 hours as Medical nebulizer needed for Bran ch solution Wheezing or Shortness of Breath. fluticasone 2020-0 Yes [id number] 1{puff} Inhale 1 [facility] 8-18 Puff every it y of meteroL 00:00: 12 [place] (ADVAIR 00 (twelve) Medical DISKUS) hours. Branch 250-50 mcg/dose inhalation disk albuterol 2021-0 Yes [id number] 2.5mg Inhale 3 [facility] 2.5 mg /3 8-18 mL every 4 ity of mL (0.083 00:00: (four) [place] %) 00 hours as Medical nebulizer needed for Bran ch solution Wheezing or Shortness of Breath. fluticasone 2020-0 Yes [id number] 1{puff} Inhale 1 [facility] 8-18 Puff every it y of meteroL 00:00: 12 [place] (ADVAIR 00 (twelve) Medical DISKUS) hours. Branch 250-50 mcg/dose inhalation disk albuterol 2021-0 Yes [id number] 2.5mg Inhale 3 [facility] 2.5 mg /3 8-18 mL every 4 ity of mL (0.083 00:00: (four) [place] %) 00 hours as Medical nebulizer needed for Bran ch solution Wheezing or Shortness of Breath. fluticasone 1-0 Yes [id number] 1{puff} Inhale 1 [facility] 8-18 Puff every it y of meteroL 00:00: 12 [place] (ADVAIR 00 (twelve) Medical DISKUS) hours. Branch 250-50 mcg/dose inhalation disk albuterol 2020-0 Yes [id number] 2.5mg Inhale 3 [facility] 2.5 mg /3 8-18 mL every 4 ity of mL (0.083 00:00: (four) [place] %) 00 hours as Medical nebulizer needed for Bran ch solution Wheezing or Shortness of Breath. fluticasone 2020-0 Yes [id number] 1{puff} Inhale 1 [facility] 8-18 Puff every it y of meteroL 00:00: 12 [place] (ADVAIR 00 (twelve) Medical DISKUS) hours. Branch 250-50 mcg/dose inhalation disk albuterol 1-0 Yes [id number] 2.5mg Inhale 3 [facility] 2.5 mg /3 8-18 mL every 4 ity of mL (0.083 00:00: (four) [place] %) 00 hours as Medical nebulizer needed for Bran ch solution Wheezing or Shortness of Breath. fluticasone 1-0 Yes [id number] 1{puff} Inhale 1 [facility] 8-18 Puff every it y of meteroL 00:00: 12 [place] (ADVAIR 00 (twelve) Medical DISKUS) hours. Branch 250-50 mcg/dose inhalation disk albuterol 2021-0 Yes [id number] 2.5mg Inhale 3 [facility] 2.5 mg /3 8-18 mL every 4 ity of mL (0.083 00:00: (four) [place] %) 00 hours as Medical nebulizer needed for Bran ch solution Wheezing or Shortness of Breath. fluticasone 2020-0 Yes [id number] 1{puff} Inhale 1 [facility] 8-18 Puff every it y of meteroL 00:00: 12 [place] (ADVAIR 00 (twelve) Medical DISKUS) hours. Branch 250-50 mcg/dose inhalation disk albuterol 2020-0 Yes [id number] 2.5mg Inhale 3 [facility] 2.5 mg /3 8-18 mL every 4 ity of mL (0.083 00:00: (four) [place] %) 00 hours as Medical nebulizer needed for Bran ch solution Wheezing or Shortness of Breath. fluticasone 2020-0 Yes [id number] 1{puff} Inhale 1 [facility] 8-18 Puff every it y of meteroL 00:00: 12 [place] (ADVAIR 00 (twelve) Medical DISKUS) hours. Branch 250-50 mcg/dose inhalation disk albuterol 2020-0 Yes [id number] 2.5mg Inhale 3 [facility] 2.5 mg /3 8-18 mL every 4 ity of mL (0.083 00:00: (four) [place] %) 00 hours as Medical nebulizer needed for Bran ch solution Wheezing or Shortness of Breath. fluticasone 2020-0 Yes [id number] 1{puff} Inhale 1 [facility] 8-18 Puff every it y of meteroL 00:00: 12 [place] (ADVAIR 00 (twelve) Medical DISKUS) hours. Branch 250-50 mcg/dose inhalation disk albuterol 2020-0 Yes [id number] 2.5mg Inhale 3 [facility] 2.5 mg /3 8-18 mL every 4 ity of mL (0.083 00:00: (four) [place] %) 00 hours as Medical nebulizer needed for Bran ch solution Wheezing or Shortness of Breath. fluticasone 2020-0 Yes [id number] 1{puff} Inhale 1 [facility] 8-18 Puff every it y of meteroL 00:00: 12 [place] (ADVAIR 00 (twelve) Medical DISKUS) hours. Branch 250-50 mcg/dose inhalation disk albuterol 2020-0 Yes [id number] 2.5mg Inhale 3 [facility] 2.5 mg /3 8-18 mL every 4 ity of mL (0.083 00:00: ([facility] [place] %) 00 hours as Medical nebulizer needed for Bran ch solution Wheezing or Shortness of Breath. albuterol 2020-0 Yes [id number] 2.5mg Inhale 3 [facility] 2.5 mg /3 8-18 mL every 4 ity of mL (0.083 00:00: ([facility] [place] %) 00 hours as Medical nebulizer needed for Bran ch solution Wheezing or Shortness of Breath. albuterol 2020-0 Yes [id number] 2.5mg Inhale 3 [facility] 2.5 mg /3 8-18 mL every 4 ity of mL (0.083 00:00: ([facility] [place] %) 00 hours as Medical nebulizer needed for Bran ch solution Wheezing or Shortness of Breath. albuterol 2020-0 Yes [id number] 2.5mg Inhale 3 [facility] 2.5 mg /3 8-18 mL every 4 ity of mL (0.083 00:00: ([facility] [place] %) 00 hours as Medical nebulizer needed for Bran ch solution Wheezing or Shortness of Breath. albuterol 2020-0 Yes [id number] 2.5mg Inhale 3 [facility] 2.5 mg /3 8-18 mL every 4 ity of mL (0.083 00:00: ([facility] [place] %) 00 hours as Medical nebulizer needed for Bran ch solution Wheezing or Shortness of Breath. albuterol 2020-0 Yes [id number] 2.5mg Inhale 3 [facility] 2.5 mg /3 8-18 mL every 4 ity of mL (0.083 00:00: ([facility] [place] %) 00 hours as Medical nebulizer needed for Bran ch solution Wheezing or Shortness of Breath. albuterol 2020-0 Yes [id number] 2.5mg Inhale 3 [facility] 2.5 mg /3 8-18 mL every 4 ity of mL (0.083 00:00: ([facility] [place] %) 00 hours as Medical nebulizer needed for Bran ch solution Wheezing or Shortness of Breath. albuterol 2020-0 Yes [id number] 2.5mg Inhale 3 [facility] 2.5 mg /3 8-18 mL every 4 ity of mL (0.083 00:00: ([facility] [place] %) 00 hours as Medical nebulizer needed for Bran ch solution Wheezing or Shortness of Breath. albuterol 2020-0 Yes [id number] 2.5mg Inhale 3 [facility] 2.5 mg /3 8-18 mL every 4 ity of mL (0.083 00:00: ([facility] [place] %) 00 hours as Medical nebulizer needed for Bran ch solution Wheezing or Shortness of Breath. albuterol 2020-0 Yes [id number] 2.5mg Inhale 3 [facility] 2.5 mg /3 8-18 mL every 4 ity of mL (0.083 00:00: ([facility] [place] %) 00 hours as Medical nebulizer needed for Bran ch solution Wheezing or Shortness of Breath. albuterol 2020-0 Yes [id number] 2.5mg Inhale 3 [facility] 2.5 mg /3 8-18 mL every 4 ity of mL (0.083 00:00: ([facility] [place] %) 00 hours as Medical nebulizer needed for Bran ch solution Wheezing or Shortness of Breath. albuterol 2020-0 Yes [id number] 2.5mg Inhale 3 [facility] 2.5 mg /3 8-18 mL every 4 ity of mL (0.083 00:00: ([facility] [place] %) 00 hours as Medical nebulizer needed for Bran ch solution Wheezing or Shortness of Breath. albuterol 2020-0 Yes [id number] 2.5mg Inhale 3 [facility] 2.5 mg /3 8-18 mL every 4 ity of mL (0.083 00:00: ([facility] [place] %) 00 hours as Medical nebulizer needed for Bran ch solution Wheezing or Shortness of Breath. albuterol 2020-0 Yes [id number] 2.5mg Inhale 3 [facility] 2.5 mg /3 8-18 mL every 4 ity of mL (0.083 00:00: ([facility] [place] %) 00 hours as Medical nebulizer needed for Bran ch solution Wheezing or Shortness of Breath. albuterol 2020-0 Yes [id number] 2.5mg Inhale 3 [facility] 2.5 mg /3 8-18 mL every 4 ity of mL (0.083 00:00: ([facility] [place] %) 00 hours as Medical nebulizer needed for Bran ch solution Wheezing or Shortness of Breath. albuterol 2020-0 Yes [id number] 2.5mg Inhale 3 [facility] 2.5 mg /3 8-18 mL every 4 ity of mL (0.083 00:00: (four) [place] %) 00 hours as Medical nebulizer needed for Bran ch solution Wheezing or Shortness of Breath. albuterol 2020-0 Yes [id number] 2.5mg Inhale 3 [facility] 2.5 mg /3 8-18 mL every 4 ity of mL (0.083 00:00: (four) [place] %) 00 hours as Medical nebulizer needed for Bran ch solution Wheezing or Shortness of Breath. albuterol 2020-0 Yes [id number] 2.5mg Inhale 3 [facility] 2.5 mg /3 8-18 mL every 4 ity of mL (0.083 00:00: (four) [place] %) 00 hours as Medical nebulizer needed for Bran ch solution Wheezing or Shortness of Breath. albuterol 2020-0 Yes [id number] 2.5mg Inhale 3 [facility] 2.5 mg /3 8-18 mL every 4 ity of mL (0.083 00:00: (four) [place] %) 00 hours as Medical nebulizer needed for Bran ch solution Wheezing or Shortness of Breath. albuterol 2020-0 Yes [id number] 2.5mg Inhale 3 [facility] 2.5 mg /3 8-18 mL every 4 ity of mL (0.083 00:00: (four) [place] %) 00 hours as Medical nebulizer needed for Bran ch solution Wheezing or Shortness of Breath. albuterol 2020-0 Yes [id number] 2.5mg Inhale 3 [facility] 2.5 mg /3 8-18 mL every 4 ity of mL (0.083 00:00: (four) [place] %) 00 hours as Medical nebulizer needed for Bran ch solution Wheezing or Shortness of Breath. albuterol 2020-0 Yes [id number] 2.5mg Inhale 3 [facility] 2.5 mg /3 8-18 mL every 4 ity of mL (0.083 00:00: (four) [place] %) 00 hours as Medical nebulizer needed for Bran ch solution Wheezing or Shortness of Breath. albuterol 2020-0 Yes [id number] 2.5mg Inhale 3 [facility] 2.5 mg /3 8-18 mL every 4 ity of mL (0.083 00:00: (four) [place] %) 00 hours as Medical nebulizer needed for Bran ch solution Wheezing or Shortness of Breath. albuterol 2020-0 Yes [id number] 2.5mg Inhale 3 [facility] 2.5 mg /3 8-18 mL every 4 ity of mL (0.083 00:00: (four) [place] %) 00 hours as Medical nebulizer needed for Bran ch solution Wheezing or Shortness of Breath. albuterol 2020-0 Yes [id number] 2.5mg Inhale 3 [facility] 2.5 mg /3 8-18 mL every 4 ity of mL (0.083 00:00: (four) [place] %) 00 hours as Medical nebulizer needed for Bran ch solution Wheezing or Shortness of Breath. albuterol 2020-0 Yes [id number] 2.5mg Inhale 3 [facility] 2.5 mg /3 8-18 mL every 4 ity of mL (0.083 00:00: (four) [place] %) 00 hours as Medical nebulizer needed for Bran ch solution Wheezing or Shortness of Breath. albuterol 2020-0 Yes [id number] 2.5mg Inhale 3 [facility] 2.5 mg /3 8-18 mL every 4 ity of mL (0.083 00:00: (four) [place] %) 00 hours as Medical nebulizer needed for Bran ch solution Wheezing or Shortness of Breath. albuterol 2020-0 Yes [id number] 2.5mg Inhale 3 [facility] 2.5 mg /3 8-18 mL every 4 ity of mL (0.083 00:00: (four) [place] %) 00 hours as Medical nebulizer needed for Bran ch solution Wheezing or Shortness of Breath. albuterol 2020-0 Yes [id number] 2.5mg Inhale 3 [facility] 2.5 mg /3 8-18 mL every 4 ity of mL (0.083 00:00: (four) [place] %) 00 hours as Medical nebulizer needed for Bran ch solution Wheezing or Shortness of Breath. albuterol 2020-0 Yes [id number] 2.5mg Inhale 3 [facility] 2.5 mg /3 8-18 mL every 4 ity of mL (0.083 00:00: ([facility] [place] %) 00 hours as Medical nebulizer needed for Bran ch solution Wheezing or Shortness of Breath. albuterol 2020-0 Yes [id number] 2.5mg Inhale 3 [facility] 2.5 mg /3 8-18 mL every 4 ity of mL (0.083 00:00: ([facility] [place] %) 00 hours as Medical nebulizer needed for Bran ch solution Wheezing or Shortness of Breath. albuterol 2020-0 Yes [id number] 2.5mg Inhale 3 [facility] 2.5 mg /3 8-18 mL every 4 ity of mL (0.083 00:00: ([facility] [place] %) 00 hours as Medical nebulizer needed for Bran ch solution Wheezing or Shortness of Breath. albuterol 2020-0 Yes [id number] 2.5mg Inhale 3 [facility] 2.5 mg /3 8-18 mL every 4 ity of mL (0.083 00:00: ([facility] [place] %) 00 hours as Medical nebulizer needed for Bran ch solution Wheezing or Shortness of Breath. albuterol 2020-0 Yes [id number] 2.5mg Inhale 3 [facility] 2.5 mg /3 8-18 mL every 4 ity of mL (0.083 00:00: ([facility] [place] %) 00 hours as Medical nebulizer needed for Bran ch solution Wheezing or Shortness of Breath. albuterol 2020-0 Yes [id number] 2.5mg Inhale 3 [facility] 2.5 mg /3 8-18 mL every 4 ity of mL (0.083 00:00: ([facility] [place] %) 00 hours as Medical nebulizer needed for Bran ch solution Wheezing or Shortness of Breath. albuterol 2020-0 Yes [id number] 2.5mg Inhale 3 [facility] 2.5 mg /3 8-18 mL every 4 ity of mL (0.083 00:00: ([facility] [place] %) 00 hours as Medical nebulizer needed for Bran ch solution Wheezing or Shortness of Breath. albuterol 2020-0 Yes [id number] 2.5mg Inhale 3 [facility] 2.5 mg /3 8-18 mL every 4 ity of mL (0.083 00:00: ([facility] [place] %) 00 hours as Medical nebulizer needed for Bran ch solution Wheezing or Shortness of Breath. albuterol 2020-0 Yes [id number] 2.5mg Inhale 3 [facility] 2.5 mg /3 8-18 mL every 4 ity of mL (0.083 00:00: ([facility] [place] %) 00 hours as Medical nebulizer needed for Bran ch solution Wheezing or Shortness of Breath. albuterol 2020-0 Yes [id number] 2.5mg Inhale 3 [facility] 2.5 mg /3 8-18 mL every 4 ity of mL (0.083 00:00: ([facility] [place] %) 00 hours as Medical nebulizer needed for Bran ch solution Wheezing or Shortness of Breath. albuterol 2020-0 Yes [id number] 2.5mg Inhale 3 [facility] 2.5 mg /3 8-18 mL every 4 ity of mL (0.083 00:00: ([facility] [place] %) 00 hours as Medical nebulizer needed for Bran ch solution Wheezing or Shortness of Breath. albuterol 2020-0 Yes [id number] 2.5mg Inhale 3 [facility] 2.5 mg /3 8-18 mL every 4 ity of mL (0.083 00:00: ([facility] [place] %) 00 hours as Medical nebulizer needed for Bran ch solution Wheezing or Shortness of Breath. albuterol 2020-0 Yes [id number] 2.5mg Inhale 3 [facility] 2.5 mg /3 8-18 mL every 4 ity of mL (0.083 00:00: ([facility] [place] %) 00 hours as Medical nebulizer needed for Bran ch solution Wheezing or Shortness of Breath. albuterol 2020-0 Yes [id number] 2.5mg Inhale 3 [facility] 2.5 mg /3 8-18 mL every 4 ity of mL (0.083 00:00: ([facility] [place] %) 00 hours as Medical nebulizer needed for Bran ch solution Wheezing or Shortness of Breath. albuterol 2020-0 Yes [id number] 2.5mg Inhale 3 [facility] 2.5 mg /3 8-18 mL every 4 ity of mL (0.083 00:00: ([facility] [place] %) 00 hours as Medical nebulizer needed for Bran ch solution Wheezing or Shortness of Breath. albuterol 1-0 Yes [id number] 2.5mg Inhale 3 [facility] 2.5 mg /3 8-18 mL every 4 ity of mL (0.083 00:00: (four) [place] %) 00 hours as Medical nebulizer needed for Bran ch solution Wheezing or Shortness of Breath. albuterol 2020-0 Yes [id number] 2.5mg Inhale 3 [facility] 2.5 mg /3 8-18 mL every 4 ity of mL (0.083 00:00: (four) [place] %) 00 hours as Medical nebulizer needed for Bran ch solution Wheezing or Shortness of Breath. albuterol 2020-0 Yes [id number] 2.5mg Inhale 3 [facility] 2.5 mg /3 8-18 mL every 4 ity of mL (0.083 00:00: (four) [place] %) 00 hours as Medical nebulizer needed for Bran ch solution Wheezing or Shortness of Breath. albuterol 2020-0 Yes [id number] 2.5mg Inhale 3 [facility] 2.5 mg /3 8-18 mL every 4 ity of mL (0.083 00:00: (four) [place] %) 00 hours as Medical nebulizer needed for Bran ch solution Wheezing or Shortness of Breath. albuterol 2020-0 Yes [id number] 2.5mg Inhale 3 [facility] 2.5 mg /3 8-18 mL every 4 ity of mL (0.083 00:00: (four) [place] %) 00 hours as Medical nebulizer needed for Bran ch solution Wheezing or Shortness of Breath. albuterol 2020-0 Yes [id number] 2.5mg Inhale 3 [facility] 2.5 mg /3 8-18 mL every 4 ity of mL (0.083 00:00: (four) [place] %) 00 hours as Medical nebulizer needed for Bran ch solution Wheezing or Shortness of Breath. albuterol 2020-0 Yes [id number] 2.5mg Inhale 3 [facility] 2.5 mg /3 8-18 mL every 4 ity of mL (0.083 00:00: (four) [place] %) 00 hours as Medical nebulizer needed for Bran ch solution Wheezing or Shortness of Breath. albuterol 2020-0 Yes [id number] 2.5mg Inhale 3 [facility] 2.5 mg /3 8-18 mL every 4 ity of mL (0.083 00:00: (four) [place] %) 00 hours as Medical nebulizer needed for Bran ch solution Wheezing or Shortness of Breath. albuterol 2020-0 Yes [id number] 2.5mg Inhale 3 [facility] 2.5 mg /3 8-18 mL every 4 ity of mL (0.083 00:00: (four) [place] %) 00 hours as Medical nebulizer needed for Bran ch solution Wheezing or Shortness of Breath. albuterol 2020-0 Yes [id number] 2.5mg Inhale 3 [facility] 2.5 mg /3 8-18 mL every 4 ity of mL (0.083 00:00: (four) [place] %) 00 hours as Medical nebulizer needed for Bran ch solution Wheezing or Shortness of Breath. albuterol 2020-0 Yes [id number] 2.5mg Inhale 3 [facility] 2.5 mg /3 8-18 mL every 4 ity of mL (0.083 00:00: (four) [place] %) 00 hours as Medical nebulizer needed for Bran ch solution Wheezing or Shortness of Breath. albuterol 2020-0 Yes [id number] 2.5mg Inhale 3 [facility] 2.5 mg /3 8-18 mL every 4 ity of mL (0.083 00:00: (four) [place] %) 00 hours as Medical nebulizer needed for Bran ch solution Wheezing or Shortness of Breath. albuterol 2020-0 Yes [id number] 2.5mg Inhale 3 [facility] 2.5 mg /3 8-18 mL every 4 ity of mL (0.083 00:00: (four) [place] %) 00 hours as Medical nebulizer needed for Bran ch solution Wheezing or Shortness of Breath. albuterol 2020-0 Yes [id number] 2.5mg Inhale 3 [facility] 2.5 mg /3 8-18 mL every 4 ity of mL (0.083 00:00: (four) [place] %) 00 hours as Medical nebulizer needed for Bran ch solution Wheezing or Shortness of Breath. albuterol 2020-0 Yes [id number] 2.5mg Inhale 3 [facility] 2.5 mg /3 8-18 mL every 4 ity of mL (0.083 00:00: ([facility] [place] %) 00 hours as Medical nebulizer needed for Bran ch solution Wheezing or Shortness of Breath. albuterol 2020-0 Yes [id number] 2.5mg Inhale 3 [facility] 2.5 mg /3 8-18 mL every 4 ity of mL (0.083 00:00: ([facility] [place] %) 00 hours as Medical nebulizer needed for Bran ch solution Wheezing or Shortness of Breath. albuterol 2020-0 Yes [id number] 2.5mg Inhale 3 [facility] 2.5 mg /3 8-18 mL every 4 ity of mL (0.083 00:00: ([facility] [place] %) 00 hours as Medical nebulizer needed for Bran ch solution Wheezing or Shortness of Breath. albuterol 0 Yes [id number] 2.5mg Inhale 3 [facility] 2.5 mg /3 8-18 mL every 4 ity of mL (0.083 00:00: ([facility] [place] %) 00 hours as Medical nebulizer needed for Bran ch solution Wheezing or Shortness of Breath. albuterol 0 Yes [id number] 2.5mg Inhale 3 [facility] 2.5 mg /3 8-18 mL every 4 ity of mL (0.083 00:00: (four) [place] %) 00 hours as Medical nebulizer needed for Bran ch solution Wheezing or Shortness of Breath. albuterol 0 Yes [id number] 2.5mg Inhale 3 [facility] 2.5 mg /3 8-18 mL every 4 ity of mL (0.083 00:00: (four) [place] %) 00 hours as Medical nebulizer needed for Bran ch solution Wheezing or Shortness of Breath. albuterol 2020-0 Yes [id number] 2.5mg Inhale 3 [facility] 2.5 mg /3 8-18 mL every 4 ity of mL (0.083 00:00: (four) [place] %) 00 hours as Medical nebulizer needed for Bran ch solution Wheezing or Shortness of Breath. fluticasone 2021- No [id number] 1{puff} Inhale 1 [facility] 8-18 12-16 Puff every i ty of meteroL 00:00: 00:00 12 [place] (ADVAIR 00 :00 (twelve) Medical DISKUS) hours. Branch 250-50 mcg/dose inhalation disk fluticasone 0 2- No [id number] 1{puff} Inhale 1 [facility] propion-[facility] 8-18 12-16 Puff every i ty of meteroL 00:00: 00:00 12 [place] (ADVAIR 00 :00 (twelve) Medical DISKUS) hours. Branch 250-50 mcg/dose inhalation disk busPIRone 2020-0 Yes [id number] 5mg Take 0.5-1 [facility] 10 mg 8-03 tablets by ity of tablet 00:00: mouth (two) Medical times Branch daily as needed (anxiety). busPIRone 2020-0 Yes [id number] 5mg Take 0.5-1 [facility] 10 mg 8-03 tablets by ity of tablet 00:00: mouth (two) Medical times Branch daily as needed (anxiety). busPIRone 2020-0 Yes [id number] 5mg Take 0.5-1 [facility] 10 mg 8-03 tablets by ity of tablet 00:00: mouth (two) Medical times Branch daily as needed (anxiety). busPIRone 1-0 Yes [id number] 5mg Take 0.5-1 [facility] 10 mg 8-03 tablets by ity of tablet 00:00: mouth (two) Medical times Branch daily as needed (anxiety). busPIRone 2020-0 Yes [id number] 5mg Take 0.5-1 [facility] 10 mg 8-03 tablets by ity of tablet 00:00: mouth (two) Medical times Branch daily as needed (anxiety). busPIRone 2021-0 Yes [id number] 5mg Take 0.5-1 [facility] 10 mg 8-03 tablets by ity of tablet 00:00: mouth (two) Medical times Branch daily as needed (anxiety). busPIRone 2021-0 Yes [id number] 5mg Take 0.5-1 [facility] 10 mg 8-03 tablets by ity of tablet 00:00: mouth (two) Medical times Branch daily as needed (anxiety). busPIRone 2021-0 Yes [id number] 5mg Take 0.5-1 [facility] 10 mg 8-03 tablets by ity of tablet 00:00: mouth 2 (two) Medical times Branch daily as needed (anxiety). busPIRone 2021-0 Yes [id number] 5mg Take 0.5-1 [facility] 10 mg 8-03 tablets by ity of tablet 00:00: mouth 2 (two) Medical times Branch daily as needed (anxiety). busPIRone 2021-0 Yes [id number] 5mg Take 0.5-1 [facility] 10 mg 8-03 tablets by ity of tablet 00:00: mouth 2 00 (two) Medical times Branch daily as needed (anxiety). busPIRone 2021-0 Yes [id number] 5mg Take 0.5-1 [facility] 10 mg 8-03 tablets by ity of tablet 00:00: mouth 2 (two) Medical times Branch daily as needed (anxiety). busPIRone 2021-0 Yes [id number] 5mg Take 0.5-1 [facility] 10 mg 8-03 tablets by ity of tablet 00:00: mouth (two) Medical times Branch daily as needed (anxiety). busPIRone 2021-0 Yes [id number] 5mg Take 0.5-1 [facility] 10 [facility] 8-03 tablets by [facility] tablet 00:00: mouth (two) Medical times [facility] daily as needed (anxiety). busPIRone 2021-0 Yes [id number] 5mg Take 0.5-1 [facility] 10 mg 8-03 tablets by [facility] tablet 00:00: mouth (two) Medical times [facility] daily as needed (anxiety). busPIRone 2021-0 Yes [id number] 5mg Take 0.5-1 [facility] 10 mg 8-03 tablets by [facility] tablet 00:00: mouth (two) Medical times [facility] daily as needed (anxiety). busPIRone 2021-0 Yes [id number] 5mg Take 0.5-1 [facility] 10 mg 8-03 tablets by [facility] tablet 00:00: mouth 2 (two) Medical times [facility] daily as needed (anxiety). busPIRone 2021-0 Yes [id number] 5mg Take 0.5-1 [facility] 10 mg 8-03 tablets by [facility] tablet 00:00: mouth (two) Medical times [facility] daily as needed (anxiety). busPIRone 2021-0 Yes [id number] 5mg Take 0.5-1 [facility] 10 mg 8-03 tablets by [facility] tablet 00:00: mouth (two) Medical times [facility] daily as needed (anxiety). busPIRone 2021-0 Yes [id number] 5mg Take 0.5-1 [facility] 10 mg 8-03 tablets by [facility] tablet 00:00: mouth (two) Medical times [facility] daily as needed (anxiety). busPIRone 2021-0 Yes [id number] 5mg Take 0.5-1 [facility] 10 mg 8-03 tablets by [facility] tablet 00:00: mouth (two) Medical times [facility] daily as needed (anxiety). busPIRone 2021-0 Yes [id number] 5mg Take 0.5-1 [facility] 10 mg 8-03 tablets by [facility] tablet 00:00: mouth (two) Medical times [facility] daily as needed (anxiety). busPIRone 2021-0 Yes [id number] 5mg Take 0.5-1 [facility] 10 mg 8-03 tablets by [facility] tablet 00:00: mouth (two) Medical times [facility] daily as needed (anxiety). busPIRone 2021-0 Yes [id number] 5mg Take 0.5-1 [facility] 10 mg 8-03 tablets by [facility] tablet 00:00: mouth (two) Medical times [facility] daily as needed (anxiety). busPIRone 2021-0 Yes [id number] 5mg Take 0.5-1 [facility] 10 mg 8-03 tablets by [facility] tablet 00:00: mouth (two) Medical times [facility] daily as needed (anxiety). busPIRone 2021-0 Yes [id number] 5mg Take 0.5-1 [facility] 10 mg 8-03 tablets by [facility] tablet 00:00: mouth (two) Medical times [facility] daily as needed (anxiety). busPIRone 2021-0 Yes [id number] 5mg Take 0.5-1 [facility] 10 mg 8-03 tablets by [facility] tablet 00:00: mouth (two) Medical times [facility] daily as needed (anxiety). busPIRone 2021-0 Yes [id number] 5mg Take 0.5-1 [facility] 10 mg 8-03 tablets by [facility] tablet 00:00: mouth (two) Medical times [facility] daily as needed (anxiety). busPIRone 2021-0 Yes [id number] 5mg Take 0.5-1 [facility] 10 mg 8-03 tablets by [facility] tablet 00:00: mouth (two) Medical times [facility] daily as needed (anxiety). busPIRone 2021-0 Yes [id number] 5mg Take 0.5-1 [facility] 10 mg 8-03 tablets by [facility] tablet 00:00: mouth (two) Medical times [facility] daily as needed (anxiety). busPIRone 2021-0 Yes [id number] 5mg Take 0.5-1 [facility] 10 mg 8-03 tablets by [facility] tablet 00:00: mouth (two) Medical times [facility] daily as needed (anxiety). busPIRone 2021-0 Yes [id number] 5mg Take 0.5-1 [facility] 10 mg 8-03 tablets by [facility] tablet 00:00: mouth (two) Medical times [facility] daily as needed (anxiety). busPIRone 2021-0 Yes [id number] 5mg Take 0.5-1 [facility] 10 mg 8-03 tablets by [facility] tablet 00:00: mouth (two) Medical times [facility] daily as needed (anxiety). busPIRone 2021-0 Yes [id number] 5mg Take 0.5-1 [facility] 10 mg 8-03 tablets by [facility] tablet 00:00: mouth (two) Medical times [facility] daily as needed (anxiety). busPIRone 2021-0 Yes [id number] 5mg Take 0.5-1 [facility] 10 mg 8-03 tablets by [facility] tablet 00:00: mouth (two) Medical times [facility] daily as needed (anxiety). busPIRone 2021-0 Yes [id number] 5mg Take 0.5-1 [facility] 10 mg 8-03 tablets by [facility] tablet 00:00: mouth (two) Medical times [facility] daily as needed (anxiety). busPIRone 2021-0 Yes [id number] 5mg Take 0.5-1 [facility] 10 mg 8-03 tablets by [facility] tablet 00:00: mouth 2 (two) Medical times [facility] daily as needed (anxiety). busPIRone 2021-0 Yes [id number] 5mg Take 0.5-1 [facility] 10 mg 8-03 tablets by [facility] tablet 00:00: mouth (two) Medical times [facility] daily as needed (anxiety). busPIRone 2021-0 Yes [id number] 5mg Take 0.5-1 [facility] 10 mg 8-03 tablets by [facility] tablet 00:00: mouth (two) Medical times [facility] daily as needed (anxiety). busPIRone 2021-0 Yes [id number] 5mg Take 0.5-1 [facility] 10 mg 8-03 tablets by [facility] tablet 00:00: mouth (two) Medical times [facility] daily as needed (anxiety). busPIRone 2021-0 Yes [id number] 5mg Take 0.5-1 [facility] 10 mg 8-03 tablets by [facility] tablet 00:00: mouth (two) Medical times [facility] daily as needed (anxiety). busPIRone 2021-0 Yes [id number] 5mg Take 0.5-1 [facility] 10 mg 8-03 tablets by [facility] tablet 00:00: mouth (two) Medical times [facility] daily as needed (anxiety). busPIRone 2021-0 Yes [id number] 5mg Take 0.5-1 [facility] 10 mg 8-03 tablets by [facility] tablet 00:00: mouth (two) Medical times [facility] daily as needed (anxiety). busPIRone 2021-0 Yes [id number] 5mg Take 0.5-1 [facility] 10 mg 8-03 tablets by [facility] tablet 00:00: mouth (two) Medical times [facility] daily as needed (anxiety). busPIRone 2021-0 Yes [id number] 5mg Take 0.5-1 [facility] 10 mg 8-03 tablets by [facility] tablet 00:00: mouth 2 (two) Medical times [facility] daily as needed (anxiety). busPIRone 2021-0 Yes [id number] 5mg Take 0.5-1 [facility] 10 mg 8-03 tablets by [facility] tablet 00:00: mouth (two) Medical times [facility] daily as needed (anxiety). busPIRone 2021-0 Yes [id number] 5mg Take 0.5-1 [facility] 10 mg 8-03 tablets by [facility] tablet 00:00: mouth (two) Medical times [facility] daily as needed (anxiety). busPIRone 2021-0 Yes [id number] 5mg Take 0.5-1 [facility] 10 mg 8-03 tablets by [facility] tablet 00:00: mouth (two) Medical times [facility] daily as needed (anxiety). busPIRone 2021-0 Yes [id number] 5mg Take 0.5-1 [facility] 10 mg 8-03 tablets by [facility] tablet 00:00: mouth (two) Medical times [facility] daily as needed (anxiety). busPIRone 2021-0 Yes [id number] 5mg Take 0.5-1 [facility] 10 mg 8-03 tablets by [facility] tablet 00:00: mouth (two) Medical times [facility] daily as needed (anxiety). busPIRone 2021-0 Yes [id number] 5mg Take 0.5-1 [facility] 10 mg 8-03 tablets by [facility] tablet 00:00: mouth (two) Medical times [facility] daily as needed (anxiety). busPIRone 2021-0 Yes [id number] 5mg Take 0.5-1 [facility] 10 mg 8-03 tablets by [facility] tablet 00:00: mouth (two) Medical times [facility] daily as needed (anxiety). busPIRone 2021-0 Yes [id number] 5mg Take 0.5-1 [facility] 10 mg 8-03 tablets by [facility] tablet 00:00: mouth (two) Medical times [facility] daily as needed (anxiety). busPIRone 2021-0 Yes [id number] 5mg Take 0.5-1 [facility] 10 mg 8-03 tablets by [facility] tablet 00:00: mouth 2 (two) Medical times [facility] daily as needed (anxiety). busPIRone 2021-0 Yes [id number] 5mg Take 0.5-1 [facility] 10 mg 8-03 tablets by [facility] tablet 00:00: mouth (two) Medical times [facility] daily as needed (anxiety). busPIRone 2021-0 Yes [id number] 5mg Take 0.5-1 [facility] 10 mg 8-03 tablets by [facility] tablet 00:00: mouth (two) Medical times [facility] daily as needed (anxiety). busPIRone 2021-0 Yes [id number] 5mg Take 0.5-1 [facility] 10 mg 8-03 tablets by [facility] tablet 00:00: mouth (two) Medical times [facility] daily as needed (anxiety). busPIRone 2021-0 Yes [id number] 5mg Take 0.5-1 [facility] 10 mg 8-03 tablets by [facility] tablet 00:00: mouth (two) Medical times [facility] daily as needed (anxiety). busPIRone 2021-0 Yes [id number] 5mg Take 0.5-1 [facility] 10 mg 8-03 tablets by [facility] tablet 00:00: mouth (two) Medical times [facility] daily as needed (anxiety). busPIRone 2021-0 Yes [id number] 5mg Take 0.5-1 [facility] 10 mg 8-03 tablets by [facility] tablet 00:00: mouth (two) Medical times [facility] daily as needed (anxiety). busPIRone 2021-0 Yes [id number] 5mg Take 0.5-1 [facility] 10 mg 8-03 tablets by [facility] tablet 00:00: mouth (two) Medical times [facility] daily as needed (anxiety). busPIRone 2021-0 Yes [id number] 5mg Take 0.5-1 [facility] 10 mg 8-03 tablets by [facility] tablet 00:00: mouth (two) Medical times [facility] daily as needed (anxiety). busPIRone 2021-0 Yes [id number] 5mg Take 0.5-1 [facility] 10 mg 8-03 tablets by [facility] tablet 00:00: mouth (two) Medical times [facility] daily as needed (anxiety). busPIRone 2021-0 Yes [id number] 5mg Take 0.5-1 [facility] 10 mg 8-03 tablets by [facility] tablet 00:00: mouth (two) Medical times [facility] daily as needed (anxiety). busPIRone 2021-0 Yes [id number] 5mg Take 0.5-1 [facility] 10 mg 8-03 tablets by [facility] tablet 00:00: mouth (two) Medical times [facility] daily as needed (anxiety). busPIRone 2021-0 Yes [id number] 5mg Take 0.5-1 [facility] 10 mg 8-03 tablets by [facility] tablet 00:00: mouth (two) Medical times [facility] daily as needed (anxiety). busPIRone 2021-0 Yes [id number] 5mg Take 0.5-1 [facility] 10 mg 8-03 tablets by [facility] tablet 00:00: mouth (two) Medical times [facility] daily as needed (anxiety). busPIRone 2021-0 Yes [id number] 5mg Take 0.5-1 [facility] 10 mg 8-03 tablets by [facility] tablet 00:00: mouth (two) Medical times [facility] daily as needed (anxiety). busPIRone 2021-0 Yes [id number] 5mg Take 0.5-1 [facility] 10 mg 8-03 tablets by [facility] tablet 00:00: mouth (two) Medical times [facility] daily as needed (anxiety). busPIRone 2021-0 Yes [id number] 5mg Take 0.5-1 [facility] 10 mg 8-03 tablets by [facility] tablet 00:00: mouth (two) Medical times [facility] daily as needed (anxiety). busPIRone 2021-0 Yes [id number] 5mg Take 0.5-1 [facility] 10 mg 8-03 tablets by [facility] tablet 00:00: mouth (two) Medical times [facility] daily as needed (anxiety). busPIRone 2021-0 Yes [id number] 5mg Take 0.5-1 [facility] 10 mg 8-03 tablets by [facility] tablet 00:00: mouth (two) Medical times [facility] daily as needed (anxiety). busPIRone 2021-0 Yes [id number] 5mg Take 0.5-1 [facility] 10 mg 8-03 tablets by [facility] tablet 00:00: mouth (two) Medical times [facility] daily as needed (anxiety). busPIRone 2021-0 Yes [id number] 5mg Take 0.5-1 [facility] 10 mg 8-03 tablets by [facility] tablet 00:00: mouth 2 00 (two) Medical times [facility] daily as needed (anxiety). busPIRone 2021-0 Yes [id number] 5mg Take 0.5-1 [facility] 10 mg 8-03 tablets by [facility] tablet 00:00: mouth 2 (two) Medical times [facility] daily as needed (anxiety). busPIRone 2021-0 Yes [id number] 5mg Take 0.5-1 [facility] 10 mg 8-03 tablets by [facility] tablet 00:00: mouth 2 00 (two) Medical times [facility] daily as needed (anxiety). busPIRone 2021-0 Yes [id number] 5mg Take 0.5-1 [facility] 10 mg 8-03 tablets by [facility] of tablet 00:00: mouth (two) Medical times [facility] daily as needed (anxiety). busPIRone 2021-0 Yes [id number] 5mg Take 0.5-1 [facility] 10 mg 8-03 tablets by [facility] of tablet 00:00: mouth (two) Medical times [facility] daily as needed (anxiety). busPIRone 2021-0 Yes [id number] 5mg Take 0.5-1 [facility] 10 mg 8-03 tablets by [facility] of tablet 00:00: mouth (two) Medical times [facility] daily as needed (anxiety). busPIRone 2021-0 Yes [id number] 5mg Take 0.5-1 [facility] 10 mg 8-03 tablets by [facility] tablet 00:00: mouth (two) Medical times [facility] daily as needed (anxiety). busPIRone 2021-0 Yes [id number] 5mg Take 0.5-1 [facility] 10 mg 8-03 tablets by [facility] of tablet 00:00: mouth 2 (two) Medical times [facility] daily as needed (anxiety). busPIRone 2021-0 Yes [id number] 5mg Take 0.5-1 [facility] 10 mg 8-03 tablets by [facility] of tablet 00:00: mouth 2 00 (two) Medical times [facility] daily as needed (anxiety). busPIRone 2021-0 Yes [id number] 5mg Take 0.5-1 [facility] 10 mg 8-03 tablets by [facility] of tablet 00:00: mouth (two) Medical times [facility] daily as needed (anxiety). busPIRone 2021-0 Yes [id number] 5mg Take 0.5-1 [facility] 10 mg 8-03 tablets by [facility] of tablet 00:00: mouth (two) Medical times [facility] daily as needed (anxiety). busPIRone 2021-0 Yes [id number] 5mg Take 0.5-1 [facility] 10 mg 8-03 tablets by [facility] of tablet 00:00: mouth (two) Medical times [facility] daily as needed (anxiety). busPIRone 2021-0 Yes [id number] 5mg Take 0.5-1 [facility] 10 mg 8-03 tablets by [facility] of tablet 00:00: mouth (two) Medical times [facility] daily as needed (anxiety). busPIRone 2021-0 Yes [id number] 5mg Take 0.5-1 [facility] 10 mg 8-03 tablets by [facility] of tablet 00:00: mouth (two) Medical times [facility] daily as needed (anxiety). busPIRone 2021-0 Yes [id number] 5mg Take 0.5-1 [facility] 10 mg 8-03 tablets by [facility] of tablet 00:00: mouth (two) Medical times [facility] daily as needed (anxiety). busPIRone 2021-0 Yes [id number] 5mg Take 0.5-1 [facility] 10 mg 8-03 tablets by [facility] of tablet 00:00: mouth (two) Medical times [facility] daily as needed (anxiety). busPIRone 2021-0 Yes [id number] 5mg Take 0.5-1 [facility] 10 mg 8-03 tablets by [facility] of tablet 00:00: mouth (two) Medical times [facility] daily as needed (anxiety). busPIRone 2021-0 Yes [id number] 5mg Take 0.5-1 [facility] 10 mg 8-03 tablets by [facility] of tablet 00:00: mouth 2 (two) Medical times [facility] daily as needed (anxiety). busPIRone 2021-0 Yes [id number] 5mg Take 0.5-1 [facility] 10 mg 8-03 tablets by [facility] of tablet 00:00: mouth (two) Medical times [facility] daily as needed (anxiety). busPIRone 2021-0 Yes [id number] 5mg Take 0.5-1 [facility] 10 mg 8-03 tablets by [facility] of tablet 00:00: mouth (two) Medical times [facility] daily as needed (anxiety). busPIRone 2021-0 Yes [id number] 5mg Take 0.5-1 [facility] 10 mg 8-03 tablets by [facility] of tablet 00:00: mouth (two) Medical times [facility] daily as needed (anxiety). busPIRone 2021-0 Yes [id number] 5mg Take 0.5-1 [facility] 10 mg 8-03 tablets by [facility] of tablet 00:00: mouth (two) Medical times [facility] daily as needed (anxiety). busPIRone 2021-0 Yes [id number] 5mg Take 0.5-1 [facility] 10 mg 8-03 tablets by [facility] of tablet 00:00: mouth (two) Medical times [facility] daily as needed (anxiety). busPIRone 2021-0 Yes [id number] 5mg Take 0.5-1 [facility] 10 mg 8-03 tablets by [facility] of tablet 00:00: mouth (two) Medical times [facility] daily as needed (anxiety). busPIRone 2021-0 Yes [id number] 5mg Take 0.5-1 [facility] 10 mg 8-03 tablets by [facility] of tablet 00:00: mouth (two) Medical times [facility] daily as needed (anxiety). busPIRone 2021-0 Yes [id number] 5mg Take 0.5-1 [facility] 10 mg 8-03 tablets by [facility] of tablet 00:00: mouth (two) Medical times [facility] daily as needed (anxiety). busPIRone 2021-0 Yes [id number] 5mg Take 0.5-1 [facility] 10 mg 8-03 tablets by [facility] of tablet 00:00: mouth (two) Medical times [facility] daily as needed (anxiety). busPIRone 2021-0 Yes [id number] 5mg Take 0.5-1 [facility] 10 mg 8-03 tablets by [facility] of tablet 00:00: mouth (two) Medical times [facility] daily as needed (anxiety). busPIRone 2021-0 Yes [id number] 5mg Take 0.5-1 [facility] 10 mg 8-03 tablets by [facility] of tablet 00:00: mouth (two) Medical times [facility] daily as needed (anxiety). busPIRone 2021-0 Yes [id number] 5mg Take 0.5-1 [facility] 10 mg 8-03 tablets by [facility] of tablet 00:00: mouth (two) Medical times Branch daily as needed (anxiety). busPIRone 2021-0 Yes [id number] 5mg Take 0.5-1 [facility] 10 mg 8-03 tablets by [facility] of tablet 00:00: mouth (two) Medical times [facility] daily as needed (anxiety). busPIRone 2021-0 Yes [id number] 5mg Take 0.5-1 [facility] 10 mg 8-03 tablets by [facility] of tablet 00:00: mouth (two) Medical times Branch daily as needed (anxiety). busPIRone 2021-0 Yes [id number] 5mg Take 0.5-1 [facility] 10 mg 8-03 tablets by [facility] of tablet 00:00: mouth (two) Medical times Branch daily as needed (anxiety). busPIRone 2021-0 Yes [id number] 5mg Take 0.5-1 [facility] 10 mg 8-03 tablets by [facility] of tablet 00:00: mouth (two) Medical times [facility] daily as needed (anxiety). busPIRone 2021-0 Yes [id number] 5mg Take 0.5-1 [facility] 10 mg 8-03 tablets by [facility] of tablet 00:00: mouth (two) Medical times [facility] daily as needed (anxiety). busPIRone 2021-0 Yes [id number] 5mg Take 0.5-1 [facility] 10 mg 8-03 tablets by [facility] of tablet 00:00: mouth (two) Medical times [facility] daily as needed (anxiety). busPIRone 2021-0 Yes [id number] 5mg Take 0.5-1 [facility] 10 mg 8-03 tablets by [facility] of tablet 00:00: mouth (two) Medical times [facility] daily as needed (anxiety). busPIRone Yes [id number] 5mg Take 0.5-1 [facility] 10 mg 8-03 tablets by [facility] of tablet 00:00: mouth 2 (two) Medical times [facility] daily as needed (anxiety). busPIRone Yes [id number] 5mg Take 0.5-1 [facility] 10 mg 8-03 tablets by [facility] of tablet 00:00: mouth 2 (two) Medical times [facility] daily as needed (anxiety). metFORMIN Yes [id number] 1000mg Take 2 [facility] 500 mg 5-25 tablets by [facility] of tablet 00:00: mouth 2 (two) Medical times Branch daily with meals. glimepiride Yes [id number] Take 1 [facility] 2 mg tablet 5-25 tablet by [facility] of 00:00: mouth once 00 daily with Medical breakfast Branch fluticasone Yes [id number] 2{spray Use 2 [facility] propionate 5-25 } Sprays in ity of 50 00:00: each [place] mcg/actuati 00 nostril Medic al on nasal daily. Branch spray metFORMIN Yes [id number] 1000mg Take 2 [facility] 500 mg 5-25 tablets by [facility] of tablet 00:00: mouth 2 (two) Medical times Branch daily with meals. glimepiride Yes [id number] Take 1 [facility] 2 mg tablet 5-25 tablet by [facility] of 00:00: mouth once 00 daily with Medical breakfast Branch fluticasone 0 Yes [id number] 2{spray Use 2 [facility] propionate 5-25 } Sprays in [facility]y of 50 00:00: each [place] mcg/actuati 00 nostril Medic al on nasal daily. Branch spray metFORMIN Yes [id number] 1000mg Take 2 [facility] 500 mg 5-25 tablets by [facility] of tablet 00:00: mouth 2 (two) Medical times Branch daily with meals. glimepiride Yes [id number] Take 1 [facility] 2 mg tablet 5-25 tablet by [facility]y of 00:00: mouth once 00 daily with Medical breakfast Branch fluticasone Yes [id number] 2{spray Use 2 [facility] propionate 5-25 } Sprays in ity of 50 00:00: each [place] mcg/actuati 00 nostril Medic al on nasal daily. Branch spray metFORMIN Yes [id number] 1000mg Take 2 [facility] 500 mg 5-25 tablets by [facility] of tablet 00:00: mouth 2 (two) Medical times Branch daily with meals. glimepiride Yes [id number] Take 1 [facility] 2 mg tablet 5-25 tablet by [facility]y of 00:00: mouth once daily with Medical breakfast Branch fluticasone 0 Yes [id number] 2{spray Use 2 [facility] propionate 5-25 } Sprays in [facility]y of 50 00:00: each [place] mcg/actuati 00 nostril Medic al on nasal daily. Branch spray metFORMIN Yes [id number] 1000mg Take 2 [facility] 500 mg 5-25 tablets by [facility] of tablet 00:00: mouth 2 (two) Medical times Branch daily with meals. glimepiride Yes [id number] Take 1 [facility] 2 mg tablet 5-25 tablet by [facility]y of 00:00: mouth once daily with Medical breakfast Branch fluticasone 0 Yes [id number] 2{spray Use 2 [facility] propionate 5-25 } Sprays in ity of 50 00:00: each [place] mcg/actuati 00 nostril Medic al on nasal daily. Branch spray metFORMIN Yes [id number] 1000mg Take 2 [facility] 500 mg 5-25 tablets by [facility] of tablet 00:00: mouth 2 (two) Medical times Branch daily with meals. glimepiride 0 Yes [id number] Take 1 [facility] 2 mg tablet 5-25 tablet by [facility]y of 00:00: mouth once daily with Medical breakfast Branch fluticasone 2020-0 Yes [id number] 2{spray Use 2 [facility] propionate 5-25 } Sprays in [facility]y of 50 00:00: each [place] mcg/actuati 00 nostril Medic al on nasal daily. Branch spray metFORMIN 0 Yes [id number] 1000mg Take 2 [facility] 500 mg 5-25 tablets by [facility] of tablet 00:00: mouth 2 (two) Medical times Branch daily with meals. glimepiride 0 Yes [id number] Take 1 [facility] 2 mg tablet 5-25 tablet by ity of 00:00: mouth once 00 daily with Medical breakfast Branch fluticasone Yes [id number] 2{spray Use 2 [facility] propionate 5-25 } Sprays in ity of 50 00:00: each [place] mcg/actuati 00 nostril Medic al on nasal daily. Branch spray metFORMIN 0 Yes [id number] 1000mg Take 2 [facility] 500 mg 5-25 tablets by [facility] of tablet 00:00: mouth 2 (two) Medical times Branch daily with meals. glimepiride Yes [id number] Take 1 [facility] 2 mg tablet 5-25 tablet by [facility] of 00:00: mouth once [place] 00 daily with Medical breakfast Branch fluticasone Yes [id number] 2{spray Use 2 [facility] propionate 5-25 } Sprays in [facility]y of 50 00:00: each [place] mcg/actuati 00 nostril Medic al on nasal daily. Branch spray metFORMIN Yes [id number] 1000mg Take 2 [facility] 500 mg 5-25 tablets by [facility] of tablet 00:00: mouth 2 [place] (two) Medical times Branch daily with meals. glimepiride Yes [id number] Take 1 [facility] 2 mg tablet 5-25 tablet by [facility]y of 00:00: mouth once [place] daily with Medical breakfast Branch fluticasone 0 Yes [id number] 2{spray Use 2 [facility] propionate 5-25 } Sprays in ity of 50 00:00: each [place] mcg/actuati 00 nostril Medic al on nasal daily. Branch spray metFORMIN 0 Yes [id number] 1000mg Take 2 [facility] 500 mg 5-25 tablets by [facility] of tablet 00:00: mouth 2 [place] (two) Medical times [place] daily with meals. glimepiride Yes [id number] Take 1 [facility] 2 mg tablet 5-25 tablet by ity of 00:00: mouth once 00 daily with Medical breakfast Branch fluticasone 2020-0 Yes [id number] 2{spray Use 2 [facility] propionate 5-25 } Sprays in ity of 50 00:00: each [place] mcg/actuati 00 nostril Medic al on nasal daily. Branch spray metFORMIN 2020-0 Yes [id number] 1000mg Take 2 [facility] 500 mg 5-25 tablets by [facility] of tablet 00:00: mouth 2 (two) Medical times Branch daily with meals. glimepiride 0 Yes [id number] Take 1 [facility] 2 mg tablet 5-25 tablet by [facility]y of 00:00: mouth once 00 daily with Medical breakfast Branch fluticasone 2020-0 Yes [id number] 2{spray Use 2 [facility] propionate 5-25 } Sprays in ity of 50 00:00: each [place] mcg/actuati 00 nostril Medic al on nasal daily. Branch spray metFORMIN 0 Yes [id number] 1000mg Take 2 [facility] 500 mg 5-25 tablets by [facility] of tablet 00:00: mouth 2 (two) Medical times Branch daily with meals. glimepiride Yes [id number] Take 1 [facility] 2 mg tablet 5-25 tablet by ity of 00:00: mouth once daily with Medical breakfast Branch fluticasone 0 Yes [id number] 2{spray Use 2 [facility] propionate 5-25 } Sprays in ity of 50 00:00: each [place] mcg/actuati 00 nostril Medic al on nasal daily. Branch spray metFORMIN 2020-0 Yes [id number] 1000mg Take 2 [facility] 500 mg 5-25 tablets by [facility] of tablet 00:00: mouth 2 (two) Medical times Branch daily with meals. glimepiride 0 Yes [id number] Take 1 [facility] 2 mg tablet 5-25 tablet by [facility]y of 00:00: mouth once 00 daily with Medical breakfast Branch fluticasone 2020-0 Yes [id number] 2{spray Use 2 [facility] propionate 5-25 } Sprays in ity of 50 00:00: each [place] mcg/actuati 00 nostril Medic al on nasal daily. Branch spray metFORMIN 2020-0 Yes [id number] 1000mg Take 2 [facility] 500 mg 5-25 tablets by [facility] of tablet 00:00: mouth 2 (two) Medical times Branch daily with meals. glimepiride 0 Yes [id number] Take 1 [facility] 2 mg tablet 5-25 tablet by ity of 00:00: mouth once 00 daily with Medical breakfast Branch fluticasone 2020-0 Yes [id number] 2{spray Use 2 [facility] propionate 5-25 } Sprays in ity of 50 00:00: each [place] mcg/actuati 00 nostril Medic al on nasal daily. Branch spray metFORMIN Yes [id number] 1000mg Take 2 [facility] 500 mg 5-25 tablets by [facility] of tablet 00:00: mouth 2 (two) Medical times Branch daily with meals. glimepiride Yes [id number] Take 1 [facility] 2 mg tablet 5-25 tablet by ity of 00:00: mouth once 00 daily with Medical breakfast Branch fluticasone 0 Yes [id number] 2{spray Use 2 [facility] propionate 5-25 } Sprays in ity of 50 00:00: each [place] mcg/actuati 00 nostril Medic al on nasal daily. Branch spray metFORMIN Yes [id number] 1000mg Take 2 [facility] 500 mg 5-25 tablets by [facility]y of tablet 00:00: mouth 2 (two) Medical times Branch daily with meals. glimepiride Yes [id number] Take 1 [facility] 2 mg tablet 5-25 tablet by ity of 00:00: mouth once daily with Medical breakfast Branch fluticasone 2020-0 Yes [id number] 2{spray Use 2 [facility] propionate 5-25 } Sprays in ity of 50 00:00: each [place] mcg/actuati 00 nostril Medic al on nasal daily. Branch spray metFORMIN 0 Yes [id number] 1000mg Take 2 [facility] 500 mg 5-25 tablets by [facility] of tablet 00:00: mouth 2 (two) Medical times Branch daily with meals. glimepiride 0 Yes [id number] Take 1 [facility] 2 mg tablet 5-25 tablet by ity of 00:00: mouth once 00 daily with Medical breakfast Branch fluticasone 2020-0 Yes [id number] 2{spray Use 2 [facility] propionate 5-25 } Sprays in ity of 50 00:00: each [place] mcg/actuati 00 nostril Medic al on nasal daily. Branch spray metFORMIN 0 Yes [id number] 1000mg Take 2 [facility] 500 mg 5-25 tablets by [facility] of tablet 00:00: mouth 2 (two) Medical times Branch daily with meals. glimepiride Yes [id number] Take 1 [facility] 2 mg tablet 5-25 tablet by ity of 00:00: mouth once 00 daily with Medical breakfast Branch fluticasone Yes [id number] 2{spray Use 2 [facility] propionate 5-25 } Sprays in ity of 50 00:00: each [place] mcg/actuati 00 nostril Medic al on nasal daily. Branch spray metFORMIN Yes [id number] 1000mg Take 2 [facility] 500 mg 5-25 tablets by [facility]y of tablet 00:00: mouth 2 (two) Medical times Branch daily with meals. glimepiride Yes [id number] Take 1 [facility] 2 mg tablet 5-25 tablet by ity of 00:00: mouth once [place] 00 daily with Medical breakfast Branch fluticasone Yes [id number] 2{spray Use 2 [facility] propionate 5-25 } Sprays in ity of 50 00:00: each [place] mcg/actuati 00 nostril Medic al on nasal daily. Branch spray metFORMIN Yes [id number] 1000mg Take 2 [facility] 500 mg 5-25 tablets by [facility] tablet 00:00: mouth 2 (two) Medical times Branch daily with meals. glimepiride Yes [id number] Take 1 [facility] 2 mg tablet 5-25 tablet by [facility] of 00:00: mouth once daily with Medical breakfast Branch fluticasone 0 Yes [id number] 2{spray Use 2 [facility] propionate 5-25 } Sprays in [facility]y of 50 00:00: each [place] mcg/actuati 00 nostril Medic al on nasal daily. Branch spray metFORMIN Yes [id number] 1000mg Take 2 [facility] 500 mg 5-25 tablets by [facility] of tablet 00:00: mouth 2 [place] (two) Medical times [place] daily with meals. glimepiride Yes [id number] Take 1 [facility] 2 mg tablet 5-25 tablet by [facility] of 00:00: mouth once 00 daily with Medical breakfast Branch fluticasone 0 Yes [id number] 2{spray Use 2 [facility] propionate 5-25 } Sprays in [facility] of 50 00:00: each [place] mcg/actuati 00 nostril Medic al on nasal daily. Branch spray metFORMIN Yes [id number] 1000mg Take 2 [facility] 500 mg 5-25 tablets by [facility] of tablet 00:00: mouth 2 (two) Medical times [facility] daily with meals. glimepiride Yes [id number] Take 1 [facility] 2 mg tablet 5-25 tablet by [facility] of 00:00: mouth once 00 daily with Medical breakfast Branch fluticasone 2020-0 Yes [id number] 2{spray Use 2 [facility] propionate 5-25 } Sprays in [facility] of 50 00:00: each [place] mcg/actuati 00 nostril Medic al on nasal daily. Branch spray metFORMIN Yes [id number] 1000mg Take 2 [facility] 500 mg 5-25 tablets by [facility] of tablet 00:00: mouth 2 (two) Medical times [facility] daily with meals. glimepiride Yes [id number] Take 1 [facility] 2 mg tablet 5-25 tablet by [facility] of 00:00: mouth once daily with Medical breakfast Branch fluticasone 2020- Yes [id number] 2{spray Use 2 [facility] propionate 5-25 } Sprays in [facility] of 50 00:00: each [place] mcg/actuati 00 nostril Medic al on nasal daily. Branch spray metFORMIN 2020- Yes [id number] 1000mg Take 2 [facility] 500 mg 5-25 tablets by [facility] of tablet 00:00: mouth 2 (two) Medical times [place] daily with meals. glimepiride Yes [id number] Take 1 [facility] 2 mg tablet 5-25 tablet by [facility] of 00:00: mouth once [place] daily with Medical breakfast Branch fluticasone 2020-0 Yes [id number] 2{spray Use 2 [facility] propionate 5-25 } Sprays in [facility]y of 50 00:00: each [place] mcg/actuati 00 nostril Medic al on nasal daily. Branch spray metFORMIN Yes [id number] 1000mg Take 2 [facility] 500 mg 5-25 tablets by [facility] of tablet 00:00: mouth 2 (two) Medical times [facility] daily with meals. glimepiride Yes [id number] Take 1 [facility] 2 mg tablet 5-25 tablet by [facility] of 00:00: mouth once 00 daily with Medical breakfast Branch fluticasone 2020-0 Yes [id number] 2{spray Use 2 [facility] propionate 5-25 } Sprays in [facility] of 50 00:00: each [place] mcg/actuati 00 nostril Medic al on nasal daily. Branch spray metFORMIN Yes [id number] 1000mg Take 2 [facility] 500 mg 5-25 tablets by [facility] of tablet 00:00: mouth 2 (two) Medical times [facility] daily with meals. glimepiride Yes [id number] Take 1 [facility] 2 mg tablet 5-25 tablet by [facility] of 00:00: mouth once 00 daily with Medical breakfast Branch fluticasone Yes [id number] 2{spray Use 2 [facility] propionate 5-25 } Sprays in [facility] of 50 00:00: each [place] mcg/actuati 00 nostril Medic al on nasal daily. Branch spray metFORMIN Yes [id number] 1000mg Take 2 [facility] 500 mg 5-25 tablets by [facility] of tablet 00:00: mouth 2 (two) Medical times [facility] daily with meals. glimepiride Yes [id number] Take 1 [facility] 2 mg tablet 5-25 tablet by [facility] of 00:00: mouth once daily with Medical breakfast Branch fluticasone Yes [id number] 2{spray Use 2 [facility] propionate 5-25 } Sprays in [facility] of 50 00:00: each [place] mcg/actuati 00 nostril Medic al on nasal daily. Branch spray metFORMIN Yes [id number] 1000mg Take 2 [facility] 500 mg 5-25 tablets by [facility] of tablet 00:00: mouth 2 [place] (two) Medical times [facility] daily with meals. glimepiride Yes [id number] Take 1 [facility] 2 mg tablet 5-25 tablet by [facility] of 00:00: mouth once 00 daily with Medical breakfast [facility] fluticasone 0 Yes [id number] 2{spray Use 2 [facility] propionate 5-25 } Sprays in [facility] of 50 00:00: each [place] mcg/actuati 00 nostril Medic al on nasal daily. Branch spray metFORMIN 0 Yes [id number] 1000mg Take 2 [facility] 500 mg 5-25 tablets by [facility] of tablet 00:00: mouth 2 [place] (two) Medical times [facility] daily with meals. glimepiride Yes [id number] Take 1 [facility] 2 mg tablet 5-25 tablet by [facility] of 00:00: mouth once 00 daily with Medical breakfast Branch fluticasone 0 Yes [id number] 2{spray Use 2 [facility] propionate 5-25 } Sprays in [facility] of 50 00:00: each [place] mcg/actuati 00 nostril Medic al on nasal daily. Branch spray metFORMIN Yes [id number] 1000mg Take 2 [facility] 500 mg 5-25 tablets by [facility] of tablet 00:00: mouth 2 (two) Medical times [facility] daily with meals. glimepiride Yes [id number] Take 1 [facility] 2 mg tablet 5-25 tablet by [facility] of 00:00: mouth once 00 daily with Medical breakfast Branch fluticasone Yes [id number] 2{spray Use 2 [facility] propionate 5-25 } Sprays in [facility] of 50 00:00: each [place] mcg/actuati 00 nostril Medic al on nasal daily. Branch spray metFORMIN Yes [id number] 1000mg Take 2 [facility] 500 mg 5-25 tablets by [facility] of tablet 00:00: mouth 2 (two) Medical times [facility] daily with meals. glimepiride Yes [id number] Take 1 [facility] 2 mg tablet 5-25 tablet by [facility] of 00:00: mouth once daily with Medical breakfast Branch fluticasone 0 Yes [id number] 2{spray Use 2 [facility] propionate 5-25 } Sprays in [facility] of 50 00:00: each [place] mcg/actuati 00 nostril Medic al on nasal daily. Branch spray metFORMIN Yes [id number] 1000mg Take 2 [facility] 500 mg 5-25 tablets by [facility] of tablet 00:00: mouth 2 [place] (two) Medical times [facility] daily with meals. glimepiride Yes [id number] Take 1 [facility] 2 mg tablet 5-25 tablet by [facility] of 00:00: mouth once 00 daily with Medical breakfast Branch fluticasone 0 Yes [id number] 2{spray Use 2 [facility] propionate 5-25 } Sprays in [facility] of 50 00:00: each [place] mcg/actuati 00 nostril Medic al on nasal daily. Branch spray metFORMIN 2021-0 Yes [id number] 1000mg Take 2 [facility] 500 mg 5-25 tablets by [facility] of tablet 00:00: mouth 2 (two) Medical times [facility] daily with meals. glimepiride Yes [id number] Take 1 [facility] 2 mg tablet 5-25 tablet by [facility] of 00:00: mouth once 00 daily with Medical breakfast Branch fluticasone 0 Yes [id number] 2{spray Use 2 [facility] propionate 5-25 } Sprays in [facility] of 50 00:00: each [place] mcg/actuati 00 nostril Medic al on nasal daily. Branch spray metFORMIN Yes [id number] 1000mg Take 2 [facility] 500 mg 5-25 tablets by [facility] of tablet 00:00: mouth 2 (two) Medical times [facility] daily with meals. glimepiride Yes [id number] Take 1 [facility] 2 mg tablet 5-25 tablet by [facility] of 00:00: mouth once 00 daily with Medical breakfast Branch fluticasone Yes [id number] 2{spray Use 2 [facility] propionate 5-25 } Sprays in [facility] of 50 00:00: each [place] mcg/actuati 00 nostril Medic al on nasal daily. Branch spray metFORMIN Yes [id number] 1000mg Take 2 [facility] 500 mg 5-25 tablets by [facility] of tablet 00:00: mouth 2 (two) Medical times [facility] daily with meals. glimepiride Yes [id number] Take 1 [facility] 2 mg tablet 5-25 tablet by [facility] of 00:00: mouth once daily with Medical breakfast Branch fluticasone 2020-0 Yes [id number] 2{spray Use 2 [facility] propionate 5-25 } Sprays in [facility] of 50 00:00: each [place] mcg/actuati 00 nostril Medic al on nasal daily. Branch spray metFORMIN Yes [id number] 1000mg Take 2 [facility] 500 mg 5-25 tablets by [facility] of tablet 00:00: mouth 2 (two) Medical times [facility] daily with meals. glimepiride Yes [id number] Take 1 [facility] 2 mg tablet 5-25 tablet by [facility] of 00:00: mouth once 00 daily with Medical breakfast [facility] fluticasone 2020-0 Yes [id number] 2{spray Use 2 [facility] propionate 5-25 } Sprays in [facility] of 50 00:00: each [place] mcg/actuati 00 nostril Medic al on nasal daily. Branch spray metFORMIN Yes [id number] 1000mg Take 2 [facility] 500 mg 5-25 tablets by [facility] of tablet 00:00: mouth 2 (two) Medical times [facility] daily with meals. glimepiride Yes [id number] Take 1 [facility] 2 mg tablet 5-25 tablet by [facility] of 00:00: mouth once 00 daily with Medical breakfast [facility] fluticasone 0 Yes [id number] 2{spray Use 2 [facility] propionate 5-25 } Sprays in [facility] of 50 00:00: each [place] mcg/actuati 00 nostril Medic al on nasal daily. Branch spray metFORMIN Yes [id number] 1000mg Take 2 [facility] 500 mg 5-25 tablets by [facility] of tablet 00:00: mouth 2 (two) Medical times [facility] daily with meals. glimepiride Yes [id number] Take 1 [facility] 2 mg tablet 5-25 tablet by [facility] of 00:00: mouth once 00 daily with Medical breakfast Branch fluticasone 0 Yes [id number] 2{spray Use 2 [facility] propionate 5-25 } Sprays in [facility] of 50 00:00: each [place] mcg/actuati 00 nostril Medic al on nasal daily. Branch spray metFORMIN 0 Yes [id number] 1000mg Take 2 [facility] 500 mg 5-25 tablets by [facility] of tablet 00:00: mouth 2 (two) Medical times [facility] daily with meals. glimepiride Yes [id number] Take 1 [facility] 2 mg tablet 5-25 tablet by [facility] of 00:00: mouth once 00 daily with Medical breakfast Branch fluticasone 0 Yes [id number] 2{spray Use 2 [facility] propionate 5-25 } Sprays in [facility] of 50 00:00: each [place] mcg/actuati 00 nostril Medic al on nasal daily. Branch spray metFORMIN 0 Yes [id number] 1000mg Take 2 [facility] 500 mg 5-25 tablets by [facility] of tablet 00:00: mouth 2 (two) Medical times [facility] daily with meals. glimepiride Yes [id number] Take 1 [facility] 2 mg tablet 5-25 tablet by [facility] of 00:00: mouth once 00 daily with Medical breakfast Branch fluticasone 2020-0 Yes [id number] 2{spray Use 2 [facility] propionate 5-25 } Sprays in [facility] of 50 00:00: each [place] mcg/actuati 00 nostril Medic al on nasal daily. Branch spray metFORMIN 0 Yes [id number] 1000mg Take 2 [facility] 500 mg 5-25 tablets by [facility] of tablet 00:00: mouth 2 (two) Medical times [facility] daily with meals. glimepiride Yes [id number] Take 1 [facility] 2 mg tablet 5-25 tablet by [facility] of 00:00: mouth once daily with Medical breakfast Branch fluticasone 0 Yes [id number] 2{spray Use 2 [facility] propionate 5-25 } Sprays in [facility] of 50 00:00: each [place] mcg/actuati 00 nostril Medic al on nasal daily. Branch spray metFORMIN Yes [id number] 1000mg Take 2 [facility] 500 mg 5-25 tablets by [facility] of tablet 00:00: mouth 2 [place] (two) Medical times [facility] daily with meals. glimepiride Yes [id number] Take 1 [facility] 2 mg tablet 5-25 tablet by [facility] of 00:00: mouth once [place] daily with Medical breakfast Branch fluticasone 2020-0 Yes [id number] 2{spray Use 2 [facility] propionate 5-25 } Sprays in [facility]y of 50 00:00: each [place] mcg/actuati 00 nostril Medic al on nasal daily. Branch spray metFORMIN 2020-0 Yes [id number] 1000mg Take 2 [facility] 500 mg 5-25 tablets by [facility] of tablet 00:00: mouth 2 [place] (two) Medical times [facility] daily with meals. glimepiride 0 Yes [id number] Take 1 [facility] 2 mg tablet 5-25 tablet by [facility] of 00:00: mouth once [place] daily with Medical breakfast Branch fluticasone 2020-0 Yes [id number] 2{spray Use 2 [facility] propionate 5-25 } Sprays in [facility]y of 50 00:00: each [place] mcg/actuati 00 nostril Medic al on nasal daily. Branch spray metFORMIN Yes [id number] 1000mg Take 2 [facility] 500 mg 5-25 tablets by [facility] of tablet 00:00: mouth 2 (two) Medical times [facility] daily with meals. glimepiride Yes [id number] Take 1 [facility] 2 mg tablet 5-25 tablet by [facility] of 00:00: mouth once 00 daily with Medical breakfast Branch fluticasone Yes [id number] 2{spray Use 2 [facility] propionate 5-25 } Sprays in [facility]y of 50 00:00: each [place] mcg/actuati 00 nostril Medic al on nasal daily. Branch spray metFORMIN Yes [id number] 1000mg Take 2 [facility] 500 mg 5-25 tablets by [facility] of tablet 00:00: mouth 2 (two) Medical times [facility] daily with meals. glimepiride Yes [id number] Take 1 [facility] 2 mg tablet 5-25 tablet by [facility] of 00:00: mouth once daily with Medical breakfast Branch fluticasone Yes [id number] 2{spray Use 2 [facility] propionate 5-25 } Sprays in [facility]y of 50 00:00: each [place] mcg/actuati 00 nostril Medic al on nasal daily. Branch spray metFORMIN Yes [id number] 1000mg Take 2 [facility] 500 mg 5-25 tablets by [facility] of tablet 00:00: mouth 2 (two) Medical times [facility] daily with meals. glimepiride Yes [id number] Take 1 [facility] 2 mg tablet 5-25 tablet by [facility] of 00:00: mouth once daily with Medical breakfast Branch fluticasone 2020-0 Yes [id number] 2{spray Use 2 [facility] propionate 5-25 } Sprays in [facility]y of 50 00:00: each [place] mcg/actuati 00 nostril Medic al on nasal daily. Branch spray metFORMIN 0 Yes [id number] 1000mg Take 2 [facility] 500 mg 5-25 tablets by [facility] of tablet 00:00: mouth 2 (two) Medical times [facility] daily with meals. glimepiride Yes [id number] Take 1 [facility] 2 mg tablet 5-25 tablet by [facility] of 00:00: mouth once daily with Medical breakfast Branch fluticasone Yes [id number] 2{spray Use 2 [facility] propionate 5-25 } Sprays in [facility] of 50 00:00: each [place] mcg/actuati 00 nostril Medic al on nasal daily. Branch spray metFORMIN Yes [id number] 1000mg Take 2 [facility] 500 mg 5-25 tablets by [facility] of tablet 00:00: mouth 2 (two) Medical times [facility] daily with meals. glimepiride Yes [id number] Take 1 [facility] 2 mg tablet 5-25 tablet by [facility] of 00:00: mouth once 00 daily with Medical breakfast Branch fluticasone Yes [id number] 2{spray Use 2 [facility] propionate 5-25 } Sprays in [facility]y of 50 00:00: each [place] mcg/actuati 00 nostril Medic al on nasal daily. Branch spray metFORMIN Yes [id number] 1000mg Take 2 [facility] 500 mg 5-25 tablets by [facility] of tablet 00:00: mouth 2 (two) Medical times [facility] daily with meals. glimepiride Yes [id number] Take 1 [facility] 2 mg tablet 5-25 tablet by [facility] of 00:00: mouth once [place] daily with Medical breakfast Branch fluticasone 0 Yes [id number] 2{spray Use 2 [facility] propionate 5-25 } Sprays in [facility]y of 50 00:00: each [place] mcg/actuati 00 nostril Medic al on nasal daily. Branch spray metFORMIN 0 Yes [id number] 1000mg Take 2 [facility] 500 mg 5-25 tablets by [facility] of tablet 00:00: mouth 2 [place] (two) Medical times [facility] daily with meals. glimepiride Yes [id number] Take 1 [facility] 2 mg tablet 5-25 tablet by [facility] of 00:00: mouth once [place] 00 daily with Medical breakfast Branch fluticasone 0 Yes [id number] 2{spray Use 2 [facility] propionate 5-25 } Sprays in [facility]y of 50 00:00: each [place] mcg/actuati 00 nostril Medic al on nasal daily. Branch spray metFORMIN 0 Yes [id number] 1000mg Take 2 [facility] 500 mg 5-25 tablets by [facility] of tablet 00:00: mouth 2 [place] (two) Medical times [facility] daily with meals. glimepiride 0 Yes [id number] Take 1 [facility] 2 mg tablet 5-25 tablet by [facility] of 00:00: mouth once 00 daily with Medical breakfast Branch fluticasone 2020-0 Yes [id number] 2{spray Use 2 [facility] propionate 5-25 } Sprays in [facility]y of 50 00:00: each [place] mcg/actuati 00 nostril Medic al on nasal daily. Branch spray metFORMIN 0 Yes [id number] 1000mg Take 2 [facility] 500 mg 5-25 tablets by [facility] of tablet 00:00: mouth 2 (two) Medical times [facility] daily with meals. glimepiride Yes [id number] Take 1 [facility] 2 mg tablet 5-25 tablet by [facility] of 00:00: mouth once [place] 00 daily with Medical breakfast Branch fluticasone 2020-0 Yes [id number] 2{spray Use 2 [facility] propionate 5-25 } Sprays in [facility]y of 50 00:00: each [place] mcg/actuati 00 nostril Medic al on nasal daily. Branch spray metFORMIN 0 Yes [id number] 1000mg Take 2 [facility] 500 mg 5-25 tablets by [facility] of tablet 00:00: mouth 2 (two) Medical times [facility] daily with meals. glimepiride 0 Yes [id number] Take 1 [facility] 2 mg tablet 5-25 tablet by [facility] of 00:00: mouth once daily with Medical breakfast Branch fluticasone 2020-0 Yes [id number] 2{spray Use 2 [facility] propionate 5-25 } Sprays in [facility]y of 50 00:00: each [place] mcg/actuati 00 nostril Medic al on nasal daily. Branch spray metFORMIN 2020-0 Yes [id number] 1000mg Take 2 [facility] 500 mg 5-25 tablets by [facility] of tablet 00:00: mouth 2 [place] (two) Medical times [facility] daily with meals. glimepiride 0 Yes [id number] Take 1 [facility] 2 mg tablet 5-25 tablet by [facility] of 00:00: mouth once [place] 00 daily with Medical breakfast Branch fluticasone 2020-0 Yes [id number] 2{spray Use 2 [facility] propionate 5-25 } Sprays in [facility]y of 50 00:00: each [place] mcg/actuati 00 nostril Medic al on nasal daily. Branch spray metFORMIN Yes [id number] 1000mg Take 2 [facility] 500 mg 5-25 tablets by [facility] of tablet 00:00: mouth 2 (two) Medical times [facility] daily with meals. glimepiride Yes [id number] Take 1 [facility] 2 mg tablet 5-25 tablet by [facility]y of 00:00: mouth once 00 daily with Medical breakfast Branch fluticasone Yes [id number] 2{spray Use 2 [facility] propionate 5-25 } Sprays in [facility]y of 50 00:00: each [place] mcg/actuati 00 nostril Medic al on nasal daily. Branch spray metFORMIN Yes [id number] 1000mg Take 2 [facility] 500 mg 5-25 tablets by [facility] of tablet 00:00: mouth 2 (two) Medical times [facility] daily with meals. glimepiride Yes [id number] Take 1 [facility] 2 mg tablet 5-25 tablet by [facility]y of 00:00: mouth once daily with Medical breakfast Branch fluticasone Yes [id number] 2{spray Use 2 [facility] propionate 5-25 } Sprays in [facility]y of 50 00:00: each [place] mcg/actuati 00 nostril Medic al on nasal daily. Branch spray metFORMIN Yes [id number] 1000mg Take 2 [facility] 500 mg 5-25 tablets by [facility] of tablet 00:00: mouth 2 (two) Medical times [facility] daily with meals. glimepiride Yes [id number] Take 1 [facility] 2 mg tablet 5-25 tablet by [facility]y of 00:00: mouth once daily with Medical breakfast Branch fluticasone 0 Yes [id number] 2{spray Use 2 [facility] propionate 5-25 } Sprays in [facility]y of 50 00:00: each [place] mcg/actuati 00 nostril Medic al on nasal daily. Branch spray metFORMIN Yes [id number] 1000mg Take 2 [facility] 500 mg 5-25 tablets by [facility] of tablet 00:00: mouth 2 (two) Medical times [facility] daily with meals. glimepiride Yes [id number] Take 1 [facility] 2 mg tablet 5-25 tablet by [facility] of 00:00: mouth once [place] 00 daily with Medical breakfast Branch fluticasone 2020- Yes [id number] 2{spray Use 2 [facility] propionate 5-25 } Sprays in [facility]y of 50 00:00: each [place] mcg/actuati 00 nostril Medic al on nasal daily. Branch spray metFORMIN 0 Yes [id number] 1000mg Take 2 [facility] 500 mg 5-25 tablets by [facility] of tablet 00:00: mouth 2 (two) Medical times [facility] daily with meals. glimepiride Yes [id number] Take 1 [facility] 2 mg tablet 5-25 tablet by [facility]y of 00:00: mouth once 00 daily with Medical breakfast Branch fluticasone Yes [id number] 2{spray Use 2 [facility] propionate 5-25 } Sprays in ity of 50 00:00: each [place] mcg/actuati 00 nostril Medic al on nasal daily. Branch spray metFORMIN Yes [id number] 1000mg Take 2 [facility] 500 mg 5-25 tablets by [facility] of tablet 00:00: mouth 2 [place] (two) Medical times [facility] daily with meals. glimepiride Yes [id number] Take 1 [facility] 2 mg tablet 5-25 tablet by [facility] of 00:00: mouth once [place] daily with Medical breakfast Branch fluticasone Yes [id number] 2{spray Use 2 [facility] propionate 5-25 } Sprays in ity of 50 00:00: each [place] mcg/actuati 00 nostril Medic al on nasal daily. Branch spray metFORMIN Yes [id number] 1000mg Take 2 [facility] 500 mg 5-25 tablets by [facility] of tablet 00:00: mouth 2 [place] (two) Medical times [facility] daily with meals. glimepiride Yes [id number] Take 1 [facility] 2 mg tablet 5-25 tablet by [facility]y of 00:00: mouth once [place] 00 daily with Medical breakfast Branch fluticasone 2020-0 Yes [id number] 2{spray Use 2 [facility] propionate 5-25 } Sprays in ity of 50 00:00: each [place] mcg/actuati 00 nostril Medic al on nasal daily. Branch spray metFORMIN Yes [id number] 1000mg Take 2 [facility] 500 mg 5-25 tablets by [facility] of tablet 00:00: mouth 2 (two) Medical times [facility] daily with meals. glimepiride 2020-0 Yes [id number] Take 1 [facility] 2 mg tablet 5-25 tablet by [facility]y of 00:00: mouth once daily with Medical breakfast Branch fluticasone 2020-0 Yes [id number] 2{spray Use 2 [facility] propionate 5-25 } Sprays in ity of 50 00:00: each [place] mcg/actuati 00 nostril Medic al on nasal daily. Branch spray metFORMIN 2020-0 Yes [id number] 1000mg Take 2 [facility] 500 mg 5-25 tablets by [facility] of tablet 00:00: mouth 2 (two) Medical times [facility] daily with meals. glimepiride 2020-0 Yes [id number] Take 1 [facility] 2 mg tablet 5-25 tablet by [facility] of 00:00: mouth once [place] daily with Medical breakfast Branch fluticasone 2020-0 Yes [id number] 2{spray Use 2 [facility] propionate 5-25 } Sprays in ity of 50 00:00: each [place] mcg/actuati 00 nostril Medic al on nasal daily. Branch spray metFORMIN 2020-0 Yes [id number] 1000mg Take 2 [facility] 500 mg 5-25 tablets by [facility] of tablet 00:00: mouth 2 (two) Medical times [facility] daily with meals. glimepiride 2020-0 Yes [id number] Take 1 [facility] 2 mg tablet 5-25 tablet by [facility]y of 00:00: mouth once daily with Medical breakfast Branch fluticasone 2020-0 Yes [id number] 2{spray Use 2 [facility] propionate 5-25 } Sprays in ity of 50 00:00: each [place] mcg/actuati 00 nostril Medic al on nasal daily. Branch spray metFORMIN 2020-0 Yes [id number] 1000mg Take 2 [facility] 500 mg 5-25 tablets by [facility] of tablet 00:00: mouth 2 (two) Medical times [facility] daily with meals. glimepiride 2020-0 Yes [id number] Take 1 [facility] 2 mg tablet 5-25 tablet by [facility]y of 00:00: mouth once [place] daily with Medical breakfast Branch fluticasone 2020-0 Yes [id number] 2{spray Use 2 [facility] propionate 5-25 } Sprays in ity of 50 00:00: each [place] mcg/actuati 00 nostril Medic al on nasal daily. Branch spray metFORMIN 0 Yes [id number] 1000mg Take 2 [facility] 500 mg 5-25 tablets by [facility] of tablet 00:00: mouth 2 (two) Medical times [facility] daily with meals. glimepiride 0 Yes [id number] Take 1 [facility] 2 mg tablet 5-25 tablet by [facility]y of 00:00: mouth once daily with Medical breakfast Branch fluticasone 0 Yes [id number] 2{spray Use 2 [facility] propionate 5-25 } Sprays in ity of 50 00:00: each [place] mcg/actuati 00 nostril Medic al on nasal daily. Branch spray metFORMIN Yes [id number] 1000mg Take 2 [facility] 500 mg 5-25 tablets by [facility] of tablet 00:00: mouth 2 (two) Medical times [facility] daily with meals. glimepiride Yes [id number] Take 1 [facility] 2 mg tablet 5-25 tablet by [facility]y of 00:00: mouth once daily with Medical breakfast Branch fluticasone 0 Yes [id number] 2{spray Use 2 [facility] propionate 5-25 } Sprays in ity of 50 00:00: each [place] mcg/actuati 00 nostril Medic al on nasal daily. Branch spray metFORMIN Yes [id number] 1000mg Take 2 [facility] 500 mg 5-25 tablets by [facility] of tablet 00:00: mouth 2 (two) Medical times [place] daily with meals. glimepiride 0 Yes [id number] Take 1 [facility] 2 mg tablet 5-25 tablet by ity of 00:00: mouth once daily with Medical breakfast Branch fluticasone 0 Yes [id number] 2{spray Use 2 [facility] propionate 5-25 } Sprays in ity of 50 00:00: each [place] mcg/actuati 00 nostril Medic al on nasal daily. Branch spray metFORMIN 0 Yes [id number] 1000mg Take 2 [facility] 500 mg 5-25 tablets by [facility] of tablet 00:00: mouth 2 (two) Medical times [facility] daily with meals. glimepiride 0 Yes [id number] Take 1 [facility] 2 mg tablet 5-25 tablet by [facility]y of 00:00: mouth once [place] 00 daily with Medical breakfast Branch fluticasone 2020-0 Yes [id number] 2{spray Use 2 [facility] propionate 5-25 } Sprays in ity of 50 00:00: each [place] mcg/actuati 00 nostril Medic al on nasal daily. Branch spray metFORMIN 0 Yes [id number] 1000mg Take 2 [facility] 500 mg 5-25 tablets by [facility] of tablet 00:00: mouth 2 [place] (two) Medical times [place] daily with meals. glimepiride Yes [id number] Take 1 [facility] 2 mg tablet 5-25 tablet by [facility]y of 00:00: mouth once [place] 00 daily with Medical breakfast Branch fluticasone Yes [id number] 2{spray Use 2 [facility] propionate 5-25 } Sprays in ity of 50 00:00: each [place] mcg/actuati 00 nostril Medic al on nasal daily. Branch spray metFORMIN 0 Yes [id number] 1000mg Take 2 [facility] 500 mg 5-25 tablets by [facility] of tablet 00:00: mouth 2 [place] (two) Medical times [place] daily with meals. glimepiride Yes [id number] Take 1 [facility] 2 mg tablet 5-25 tablet by [facility]y of 00:00: mouth once [place] daily with Medical breakfast Branch fluticasone Yes [id number] 2{spray Use 2 [facility] propionate 5-25 } Sprays in ity of 50 00:00: each [place] mcg/actuati 00 nostril Medic al on nasal daily. Branch spray metFORMIN 0 Yes [id number] 1000mg Take 2 [facility] 500 mg 5-25 tablets by [facility] of tablet 00:00: mouth 2 [place] (two) Medical times [place] daily with meals. glimepiride 0 Yes [id number] Take 1 [facility] 2 mg tablet 5-25 tablet by [facility]y of 00:00: mouth once [place] 00 daily with Medical breakfast Branch fluticasone 2020-0 Yes [id number] 2{spray Use 2 [facility] propionate 5-25 } Sprays in ity of 50 00:00: each [place] mcg/actuati 00 nostril Medic al on nasal daily. Branch spray metFORMIN 2020-0 Yes [id number] 1000mg Take 2 [facility] 500 mg 5-25 tablets by [facility] of tablet 00:00: mouth 2 (two) Medical times Branch daily with meals. glimepiride 2020-0 Yes [id number] Take 1 [facility] 2 mg tablet 5-25 tablet by ity of 00:00: mouth once 00 daily with Medical breakfast Branch fluticasone 2020-0 Yes [id number] 2{spray Use 2 [facility] propionate 5-25 } Sprays in ity of 50 00:00: each [place] mcg/actuati 00 nostril Medic al on nasal daily. Branch spray metFORMIN 2020-0 Yes [id number] 1000mg Take 2 [facility] 500 mg 5-25 tablets by [facility] of tablet 00:00: mouth 2 (two) Medical times Branch daily with meals. glimepiride 2020-0 Yes [id number] Take 1 [facility] 2 mg tablet 5-25 tablet by ity of 00:00: mouth once [place] daily with Medical breakfast Branch fluticasone 2020-0 Yes [id number] 2{spray Use 2 [facility] propionate 5-25 } Sprays in ity of 50 00:00: each [place] mcg/actuati 00 nostril Medic al on nasal daily. Branch spray metFORMIN 2020-0 Yes [id number] 1000mg Take 2 [facility] 500 mg 5-25 tablets by [facility] of tablet 00:00: mouth 2 [place] (two) Medical times Branch daily with meals. glimepiride 2020-0 Yes [id number] Take 1 [facility] 2 mg tablet 5-25 tablet by ity of 00:00: mouth once [place] daily with Medical breakfast Branch fluticasone 2020-0 Yes [id number] 2{spray Use 2 [facility] propionate 5-25 } Sprays in ity of 50 00:00: each [place] mcg/actuati 00 nostril Medic al on nasal daily. Branch spray metFORMIN 2020-0 Yes [id number] 1000mg Take 2 [facility] 500 mg 5-25 tablets by [facility] of tablet 00:00: mouth 2 [place] (two) Medical times Branch daily with meals. glimepiride 2020-0 Yes [id number] Take 1 [facility] 2 mg tablet 5-25 tablet by ity of 00:00: mouth once [place] 00 daily with Medical breakfast Branch fluticasone 2020-0 Yes [id number] 2{spray Use 2 [facility] propionate 5-25 } Sprays in ity of 50 00:00: each [place] mcg/actuati 00 nostril Medic al on nasal daily. Branch spray metFORMIN 0 Yes [id number] 1000mg Take 2 [facility] 500 mg 5-25 tablets by [facility] of tablet 00:00: mouth 2 (two) Medical times Branch daily with meals. glimepiride Yes [id number] Take 1 [facility] 2 mg tablet 5-25 tablet by ity of 00:00: mouth once daily with Medical breakfast Branch fluticasone 0 Yes [id number] 2{spray Use 2 [facility] propionate 5-25 } Sprays in ity of 50 00:00: each [place] mcg/actuati 00 nostril Medic al on nasal daily. Branch spray metFORMIN Yes [id number] 1000mg Take 2 [facility] 500 mg 5-25 tablets by [facility] of tablet 00:00: mouth 2 (two) Medical times Branch daily with meals. glimepiride Yes [id number] Take 1 [facility] 2 mg tablet 5-25 tablet by ity of 00:00: mouth once daily with Medical breakfast Branch fluticasone 0 Yes [id number] 2{spray Use 2 [facility] propionate 5-25 } Sprays in ity of 50 00:00: each [place] mcg/actuati 00 nostril Medic al on nasal daily. Branch spray metFORMIN 0 Yes [id number] 1000mg Take 2 [facility] 500 mg 5-25 tablets by [facility] of tablet 00:00: mouth 2 (two) Medical times Branch daily with meals. glimepiride 0 Yes [id number] Take 1 [facility] 2 mg tablet 5-25 tablet by ity of 00:00: mouth once daily with Medical breakfast Branch fluticasone 2020-0 Yes [id number] 2{spray Use 2 [facility] propionate 5-25 } Sprays in ity of 50 00:00: each [place] mcg/actuati 00 nostril Medic al on nasal daily. Branch spray metFORMIN 0 Yes [id number] 1000mg Take 2 [facility] 500 mg 5-25 tablets by ity of tablet 00:00: mouth 2 (two) Medical times Branch daily with meals. glimepiride 0 Yes [id number] Take 1 [facility] 2 mg tablet 5-25 tablet by ity of 00:00: mouth once [place] 00 daily with Medical breakfast Branch fluticasone Yes [id number] 2{spray Use 2 [facility] propionate 5-25 } Sprays in ity of 50 00:00: each [place] mcg/actuati 00 nostril Medic al on nasal daily. Branch spray metFORMIN 0 Yes [id number] 1000mg Take 2 [facility] 500 mg 5-25 tablets by it[facility] of tablet 00:00: mouth 2 (two) Medical times Branch daily with meals. glimepiride Yes [id number] Take 1 [facility] 2 mg tablet 5-25 tablet by ity of 00:00: mouth once [place] 00 daily with Medical breakfast Branch fluticasone Yes [id number] 2{spray Use 2 [facility] propionate 5-25 } Sprays in ity of 50 00:00: each [place] mcg/actuati 00 nostril Medic al on nasal daily. Branch spray metFORMIN Yes [id number] 1000mg Take 2 [facility] 500 mg 5-25 tablets by it[facility] of tablet 00:00: mouth 2 (two) Medical times Branch daily with meals. glimepiride Yes [id number] Take 1 [facility] 2 mg tablet 5-25 tablet by ity of 00:00: mouth once [place] daily with Medical breakfast Branch fluticasone 0 Yes [id number] 2{spray Use 2 [facility] propionate 5-25 } Sprays in ity of 50 00:00: each [place] mcg/actuati 00 nostril Medic al on nasal daily. Branch spray metFORMIN 0 Yes [id number] 1000mg Take 2 [facility] 500 mg 5-25 tablets by ity of tablet 00:00: mouth 2 [place] (two) Medical times [place] daily with meals. glimepiride Yes [id number] Take 1 [facility] 2 mg tablet 5-25 tablet by ity of 00:00: mouth once [place] 00 daily with Medical breakfast Branch fluticasone 2020-0 Yes [id number] 2{spray Use 2 [facility] propionate 5-25 } Sprays in ity of 50 00:00: each [place] mcg/actuati 00 nostril Medic al on nasal daily. Branch spray metFORMIN 2020-0 Yes [id number] 1000mg Take 2 [facility] 500 mg 5-25 tablets by [facility] of tablet 00:00: mouth 2 (two) Medical times Branch daily with meals. glimepiride 0 Yes [id number] Take 1 [facility] 2 mg tablet 5-25 tablet by ity of 00:00: mouth once 00 daily with Medical breakfast Branch fluticasone 2020-0 Yes [id number] 2{spray Use 2 [facility] propionate 5-25 } Sprays in ity of 50 00:00: each [place] mcg/actuati 00 nostril Medic al on nasal daily. Branch spray metFORMIN 0 Yes [id number] 1000mg Take 2 [facility] 500 mg 5-25 tablets by ity of tablet 00:00: mouth 2 (two) Medical times Branch daily with meals. glimepiride Yes [id number] Take 1 [facility] 2 mg tablet 5-25 tablet by ity of 00:00: mouth once 00 daily with Medical breakfast Branch fluticasone 2020- Yes [id number] 2{spray Use 2 [facility] propionate 5-25 } Sprays in ity of 50 00:00: each [place] mcg/actuati 00 nostril Medic al on nasal daily. Branch spray metFORMIN Yes [id number] 1000mg Take 2 [facility] 500 mg 5-25 tablets by [facility] of tablet 00:00: mouth 2 (two) Medical times Branch daily with meals. glimepiride 0 Yes [id number] Take 1 [facility] 2 mg tablet 5-25 tablet by ity of 00:00: mouth once 00 daily with Medical breakfast Branch fluticasone 2020-0 Yes [id number] 2{spray Use 2 [facility] propionate 5-25 } Sprays in ity of 50 00:00: each [place] mcg/actuati 00 nostril Medic al on nasal daily. Branch spray metFORMIN 2020-0 Yes [id number] 1000mg Take 2 [facility] 500 mg 5-25 tablets by [facility] of tablet 00:00: mouth 2 (two) Medical times Branch daily with meals. glimepiride 0 Yes [id number] Take 1 [facility] 2 mg tablet 5-25 tablet by ity of 00:00: mouth once 00 daily with Medical breakfast Branch fluticasone 2020-0 Yes [id number] 2{spray Use 2 [facility] propionate 5-25 } Sprays in ity of 50 00:00: each [place] mcg/actuati 00 nostril Medic al on nasal daily. Branch spray metFORMIN Yes [id number] 1000mg Take 2 [facility] 500 mg 5-25 tablets by it[facility] of tablet 00:00: mouth 2 (two) Medical times Branch daily with meals. glimepiride Yes [id number] Take 1 [facility] 2 mg tablet 5-25 tablet by ity of 00:00: mouth once 00 daily with Medical breakfast Branch fluticasone 0 Yes [id number] 2{spray Use 2 [facility] propionate 5-25 } Sprays in ity of 50 00:00: each [place] mcg/actuati 00 nostril Medic al on nasal daily. Branch spray metFORMIN Yes [id number] 1000mg Take 2 [facility] 500 mg 5-25 tablets by it[facility] of tablet 00:00: mouth 2 (two) Medical times Branch daily with meals. glimepiride Yes [id number] Take 1 [facility] 2 mg tablet 5-25 tablet by ity of 00:00: mouth once daily with Medical breakfast Branch fluticasone 0 Yes [id number] 2{spray Use 2 [facility] propionate 5-25 } Sprays in ity of 50 00:00: each [place] mcg/actuati 00 nostril Medic al on nasal daily. Branch spray metFORMIN 0 Yes [id number] 1000mg Take 2 [facility] 500 mg 5-25 tablets by [facility] of tablet 00:00: mouth 2 (two) Medical times Branch daily with meals. glimepiride Yes [id number] Take 1 [facility] 2 mg tablet 5-25 tablet by ity of 00:00: mouth once daily with Medical breakfast Branch fluticasone 2020-0 Yes [id number] 2{spray Use 2 [facility] propionate 5-25 } Sprays in ity of 50 00:00: each [place] mcg/actuati 00 nostril Medic al on nasal daily. Branch spray metFORMIN 0 Yes [id number] 1000mg Take 2 [facility] 500 mg 5-25 tablets by [facility] of tablet 00:00: mouth 2 (two) Medical times Branch daily with meals. glimepiride Yes [id number] Take 1 [facility] 2 mg tablet 5-25 tablet by ity of 00:00: mouth once 00 daily with Medical breakfast Branch fluticasone Yes [id number] 2{spray Use 2 [facility] propionate 5-25 } Sprays in ity of 50 00:00: each [place] mcg/actuati 00 nostril Medic al on nasal daily. Branch spray metFORMIN Yes [id number] 1000mg Take 2 [facility] 500 mg 5-25 tablets by [facility] of tablet 00:00: mouth 2 (two) Medical times Branch daily with meals. glimepiride Yes [id number] Take 1 [facility] 2 mg tablet 5-25 tablet by ity of 00:00: mouth once 00 daily with Medical breakfast Branch fluticasone Yes [id number] 2{spray Use 2 [facility] propionate 5-25 } Sprays in ity of 50 00:00: each [place] mcg/actuati 00 nostril Medic al on nasal daily. Branch spray metFORMIN Yes [id number] 1000mg Take 2 [facility] 500 mg 5-25 tablets by it[facility] of tablet 00:00: mouth 2 (two) Medical times Branch daily with meals. glimepiride Yes [id number] Take 1 [facility] 2 mg tablet 5-25 tablet by ity of 00:00: mouth once daily with Medical breakfast Branch fluticasone Yes [id number] 2{spray Use 2 [facility] propionate 5-25 } Sprays in ity of 50 00:00: each [place] mcg/actuati 00 nostril Medic al on nasal daily. Branch spray metFORMIN Yes [id number] 1000mg Take 2 [facility] 500 mg 5-25 tablets by ity of tablet 00:00: mouth 2 (two) Medical times Branch daily with meals. glimepiride Yes [id number] Take 1 [facility] 2 mg tablet 5-25 tablet by ity of 00:00: mouth once 00 daily with Medical breakfast Branch fluticasone 0 Yes [id number] 2{spray Use 2 [facility] propionate 5-25 } Sprays in ity of 50 00:00: each [place] mcg/actuati 00 nostril Medic al on nasal daily. Branch spray metFORMIN Yes [id number] 1000mg Take 2 [facility] 500 mg 5-25 tablets by it[facility] of tablet 00:00: mouth 2 (two) Medical times Branch daily with meals. glimepiride Yes [id number] Take 1 [facility] 2 mg tablet 5-25 tablet by ity of 00:00: mouth once 00 daily with Medical breakfast Branch fluticasone 2020-0 Yes [id number] 2{spray Use 2 [facility] propionate 5-25 } Sprays in ity of 50 00:00: each [place] mcg/actuati 00 nostril Medic al on nasal daily. Branch spray metFORMIN Yes [id number] 1000mg Take 2 [facility] 500 mg 5-25 tablets by ity of tablet 00:00: mouth 2 (two) Medical times Branch daily with meals. glimepiride Yes [id number] Take 1 [facility] 2 mg tablet 5-25 tablet by ity of 00:00: mouth once daily with Medical breakfast Branch fluticasone 2020- Yes [id number] 2{spray Use 2 [facility] propionate 5-25 } Sprays in ity of 50 00:00: each [place] mcg/actuati 00 nostril Medic al on nasal daily. Branch spray metFORMIN 2020- Yes [id number] 1000mg Take 2 [facility] 500 mg 5-25 tablets by [facility] of tablet 00:00: mouth 2 [place] (two) Medical times [place] daily with meals. glimepiride Yes [id number] Take 1 [facility] 2 mg tablet 5-25 tablet by ity of 00:00: mouth once [place] daily with Medical breakfast Branch fluticasone 2020-0 Yes [id number] 2{spray Use 2 [facility] propionate 5-25 } Sprays in ity of 50 00:00: each [place] mcg/actuati 00 nostril Medic al on nasal daily. Branch spray metFORMIN 2020- Yes [id number] 1000mg Take 2 [facility] 500 mg 5-25 tablets by it[facility] of tablet 00:00: mouth 2 [place] (two) Medical times Branch daily with meals. glimepiride 2020-0 Yes [id number] Take 1 [facility] 2 mg tablet 5-25 tablet by ity of 00:00: mouth once 00 daily with Medical breakfast Branch fluticasone 2020-0 Yes [id number] 2{spray Use 2 [facility] propionate 5-25 } Sprays in ity of 50 00:00: each [place] mcg/actuati 00 nostril Medic al on nasal daily. Branch spray metFORMIN Yes [id number] 1000mg Take 2 [facility] 500 mg 5-25 tablets by ity of tablet 00:00: mouth 2 (two) Medical times Branch daily with meals. glimepiride Yes [id number] Take 1 [facility] 2 mg tablet 5-25 tablet by ity of 00:00: mouth once 00 daily with Medical breakfast Branch fluticasone 0 Yes [id number] 2{spray Use 2 [facility] propionate 5-25 } Sprays in ity of 50 00:00: each [place] mcg/actuati 00 nostril Medic al on nasal daily. Branch spray metFORMIN Yes [id number] 1000mg Take 2 [facility] 500 mg 5-25 tablets by ity of tablet 00:00: mouth 2 (two) Medical times Branch daily with meals. glimepiride Yes [id number] Take 1 [facility] 2 mg tablet 5-25 tablet by ity of 00:00: mouth once 00 daily with Medical breakfast Branch fluticasone 0 Yes [id number] 2{spray Use 2 [facility] propionate 5-25 } Sprays in ity of 50 00:00: each [place] mcg/actuati 00 nostril Medic al on nasal daily. Branch spray metFORMIN 0 Yes [id number] 1000mg Take 2 [facility] 500 mg 5-25 tablets by ity of tablet 00:00: mouth 2 [place] (two) Medical times Branch daily with meals. glimepiride Yes [id number] Take 1 [facility] 2 mg tablet 5-25 tablet by ity of 00:00: mouth once 00 daily with Medical breakfast Branch fluticasone 2020-0 Yes [id number] 2{spray Use 2 [facility] propionate 5-25 } Sprays in ity of 50 00:00: each [place] mcg/actuati 00 nostril Medic al on nasal daily. Branch spray metFORMIN 0 Yes [id number] 1000mg Take 2 [facility] 500 mg 5-25 tablets by ity of tablet 00:00: mouth 2 (two) Medical times Branch daily with meals. glimepiride Yes [id number] Take 1 [facility] 2 mg tablet 5-25 tablet by ity of 00:00: mouth once [place] 00 daily with Medical breakfast Branch fluticasone Yes [id number] 2{spray Use 2 [facility] propionate 5-25 } Sprays in ity of 50 00:00: each [place] mcg/actuati 00 nostril Medic al on nasal daily. Branch spray metFORMIN Yes [id number] 1000mg Take 2 [facility] 500 mg 5-25 tablets by ity of tablet 00:00: mouth 2 (two) Medical times Branch daily with meals. glimepiride Yes [id number] Take 1 [facility] 2 mg tablet 5-25 tablet by ity of 00:00: mouth once 00 daily with Medical breakfast Branch fluticasone Yes [id number] 2{spray Use 2 [facility] propionate 5-25 } Sprays in ity of 50 00:00: each [place] mcg/actuati 00 nostril Medic al on nasal daily. Branch spray metFORMIN Yes [id number] 1000mg Take 2 [facility] 500 mg 5-25 tablets by ity of tablet 00:00: mouth 2 (two) Medical times Branch daily with meals. glimepiride Yes [id number] Take 1 [facility] 2 mg tablet 5-25 tablet by ity of 00:00: mouth once daily with Medical breakfast Branch fluticasone Yes [id number] 2{spray Use 2 [facility] propionate 5-25 } Sprays in ity of 50 00:00: each [place] mcg/actuati 00 nostril Medic al on nasal daily. Branch spray metFORMIN Yes [id number] 1000mg Take 2 [facility] 500 mg 5-25 tablets by ity of tablet 00:00: mouth 2 (two) Medical times [facility] daily with meals. glimepiride Yes [id number] Take 1 [facility] 2 mg tablet 5-25 tablet by ity of 00:00: mouth once [place] 00 daily with Medical breakfast Branch fluticasone Yes [id number] 2{spray Use 2 [facility] propionate 5-25 } Sprays in ity of 50 00:00: each [place] mcg/actuati 00 nostril Medic al on nasal daily. Branch spray metFORMIN Yes [id number] 1000mg Take 2 [facility] 500 mg 5-25 tablets by ity of tablet 00:00: mouth 2 (two) Medical times Branch daily with meals. glimepiride Yes [id number] Take 1 [facility] 2 mg tablet 5-25 tablet by ity of 00:00: mouth once 00 daily with Medical breakfast Branch fluticasone Yes [id number] 2{spray Use 2 [facility] propionate 5-25 } Sprays in ity of 50 00:00: each [place] mcg/actuati 00 nostril Medic al on nasal daily. Branch spray metFORMIN Yes [id number] 1000mg Take 2 [facility] 500 mg 5-25 tablets by ity of tablet 00:00: mouth 2 (two) Medical times Branch daily with meals. glimepiride Yes [id number] Take 1 [facility] 2 mg tablet 5-25 tablet by ity of 00:00: mouth once 00 daily with Medical breakfast Branch fluticasone Yes [id number] 2{spray Use 2 [facility] propionate 5-25 } Sprays in ity of 50 00:00: each [place] mcg/actuati 00 nostril Medic al on nasal daily. Branch spray metFORMIN Yes [id number] 1000mg Take 2 [facility] 500 mg 5-25 tablets by ity of tablet 00:00: mouth 2 (two) Medical times [facility] daily with meals. glimepiride Yes [id number] Take 1 [facility] 2 mg tablet 5-25 tablet by ity of 00:00: mouth once 00 daily with Medical breakfast Branch fluticasone 2020- Yes [id number] 2{spray Use 2 [facility] propionate 5-25 } Sprays in ity of 50 00:00: each [place] mcg/actuati 00 nostril Medic al on nasal daily. Branch spray metFORMIN Yes [id number] 1000mg Take 2 [facility] 500 mg 5-25 tablets by ity of tablet 00:00: mouth 2 (two) Medical times Branch daily with meals. glimepiride Yes [id number] Take 1 [facility] 2 mg tablet 5-25 tablet by ity of 00:00: mouth once 00 daily with Medical breakfast Branch fluticasone 2020-0 Yes [id number] 2{spray Use 2 [facility] propionate 5-25 } Sprays in ity of 50 00:00: each [place] mcg/actuati 00 nostril Medic al on nasal daily. Branch spray metFORMIN Yes [id number] 1000mg Take 2 [facility] 500 mg 5-25 tablets by ity of tablet 00:00: mouth 2 [place] 00 (two) Medical times Branch daily with meals. glimepiride Yes [id number] Take 1 [facility] 2 mg tablet 5-25 tablet by ity of 00:00: mouth once [place] 00 daily with Medical breakfast Branch fluticasone Yes [id number] 2{spray Use 2 [facility] propionate 5-25 } Sprays in ity of 50 00:00: each [place] mcg/actuati 00 nostril Medic al on nasal daily. Branch spray metFORMIN Yes [id number] 1000mg Take 2 [facility] 500 mg 5-25 tablets by ity of tablet 00:00: mouth 2 [place] 00 (two) Medical times [place] daily with meals. glimepiride Yes [id number] Take 1 [facility] 2 mg tablet 5-25 tablet by ity of 00:00: mouth once [place] 00 daily with Medical breakfast Branch fluticasone Yes [id number] 2{spray Use 2 [facility] propionate 5-25 } Sprays in ity of 50 00:00: each [place] mcg/actuati 00 nostril Medic al on nasal daily. Branch spray estradioL Yes [id number] 2mg Insert 1 [facility] (ESTRING) 2 3-18 Each into ity of mg (7.5 mcg 00:00: [place] /24 hour) 00 every 3 Medical vaginal (three) Branch ring months. follow package directions estradioL Yes [id number] 2mg Insert 1 [facility] (ESTRING) 2 3-18 Each into ity of mg (7.5 mcg 00:00: [place] /24 hour) 00 every 3 Medical vaginal (three) Branch ring months. follow package directions estradioL Yes [id number] 2mg Insert 1 [facility] (ESTRING) 2 3-18 Each into ity of mg (7.5 mcg 00:00: [place] /24 hour) 00 every 3 Medical vaginal (three) Branch ring months. follow package directions estradioL Yes [id number] 2mg Insert 1 [facility] (ESTRING) 2 3-18 Each into ity of mg (7.5 mcg 00:00: vagina [place] /24 hour) 00 every 3 Medical vaginal (three) Branch ring months. follow package directions estradioL Yes [id number] 2mg Insert 1 [facility] (ESTRING) 2 3-18 Each into ity of mg (7.5 mcg 00:00: [place] /24 hour) 00 every 3 Medical vaginal (three) Branch ring months. follow package directions estradioL Yes [id number] 2mg Insert 1 [facility] (ESTRING) 2 3-18 Each into ity of mg (7.5 mcg 00:00: vagina [place] /24 hour) 00 every 3 Medical vaginal (three) Branch ring months. follow package directions estradioL Yes [id number] 2mg Insert 1 [facility] (ESTRING) 2 3-18 Each into ity of mg (7.5 mcg 00:00: [place] /24 hour) 00 every 3 Medical vaginal (three) Branch ring months. follow package directions estradioL Yes [id number] 2mg Insert 1 [facility] (ESTRING) 2 3-18 Each into ity of mg (7.5 mcg 00:00: vagina [place] /24 hour) 00 every 3 Medical vaginal (three) Branch ring months. follow package directions estradioL Yes [id number] 2mg Insert 1 [facility] (ESTRING) 2 3-18 Each into ity of mg (7.5 mcg 00:00: vagina [place] /24 hour) 00 every 3 Medical vaginal (three) Branch ring months. follow package directions estradioL Yes [id number] 2mg Insert 1 [facility] (ESTRING) 2 3-18 Each into ity of mg (7.5 mcg 00:00: vagina [place] /24 hour) 00 every 3 Medical vaginal (three) Branch ring months. follow package directions estradioL Yes [id number] 2mg Insert 1 [facility] (ESTRING) 2 3-18 Each into ity of mg (7.5 mcg 00:00: vagina [place] /24 hour) 00 every 3 Medical vaginal (three) Branch ring months. follow package directions estradioL Yes [id number] 2mg Insert 1 [facility] (ESTRING) 2 3-18 Each into ity of mg (7.5 mcg 00:00: vagina [place] /24 hour) 00 every 3 Medical vaginal (three) Branch ring months. follow package directions estradioL Yes [id number] 2mg Insert 1 [facility] (ESTRING) 2 3-18 Each into ity of mg (7.5 mcg 00:00: vagina [place] /24 hour) 00 every 3 Medical vaginal (three) Branch ring months. follow package directions estradioL Yes [id number] 2mg Insert 1 [facility] (ESTRING) 2 3-18 Each into ity of mg (7.5 mcg 00:00: [place] /24 hour) 00 every 3 Medical vaginal (three) Branch ring months. follow package directions estradioL Yes [id number] 2mg Insert 1 [facility] (ESTRING) 2 3-18 Each into ity of mg (7.5 mcg 00:00: vagina [place] /24 hour) 00 every 3 Medical vaginal (three) Branch ring months. follow package directions estradioL Yes [id number] 2mg Insert 1 [facility] (ESTRING) 2 3-18 Each into ity of mg (7.5 mcg 00:00: vagina [place] /24 hour) 00 every 3 Medical vaginal (three) Branch ring months. follow package directions estradioL Yes [id number] 2mg Insert 1 [facility] (ESTRING) 2 3-18 Each into ity of mg (7.5 mcg 00:00: vagina [place] /24 hour) 00 every 3 Medical vaginal (three) Branch ring months. follow package directions estradioL Yes [id number] 2mg Insert 1 [facility] (ESTRING) 2 3-18 Each into ity of mg (7.5 mcg 00:00: vagina [place] /24 hour) 00 every 3 Medical vaginal (three) Branch ring months. follow package directions estradioL Yes [id number] 2mg Insert 1 [facility] (ESTRING) 2 3-18 Each into ity of mg (7.5 mcg 00:00: vagina [place] /24 hour) 00 every 3 Medical vaginal (three) Branch ring months. follow package directions estradioL Yes [id number] 2mg Insert 1 [facility] (ESTRING) 2 3-18 Each into ity of mg (7.5 mcg 00:00: vagina [place] /24 hour) 00 every 3 Medical vaginal (three) Branch ring months. follow package directions estradioL Yes [id number] 2mg Insert 1 [facility] (ESTRING) 2 3-18 Each into ity of mg (7.5 mcg 00:00: vagina [place] /24 hour) 00 every 3 Medical vaginal (three) Branch ring months. follow package directions estradioL Yes [id number] 2mg Insert 1 [facility] (ESTRING) 2 3-18 Each into ity of mg (7.5 mcg 00:00: vagina [place] /24 hour) 00 every 3 Medical vaginal (three) Branch ring months. follow package directions estradioL Yes [id number] 2mg Insert 1 [facility] (ESTRING) 2 3-18 Each into ity of mg (7.5 mcg 00:00: vagina [place] /24 hour) 00 every 3 Medical vaginal (three) Branch ring months. follow package directions estradioL Yes [id number] 2mg Insert 1 [facility] (ESTRING) 2 3-18 Each into ity of mg (7.5 mcg 00:00: vagina [place] /24 hour) 00 every 3 Medical vaginal (three) Branch ring months. follow package directions estradioL Yes [id number] 2mg Insert 1 [facility] (ESTRING) 2 3-18 Each into ity of mg (7.5 mcg 00:00: vagina [place] /24 hour) 00 every 3 Medical vaginal (three) Branch ring months. follow package directions estradioL Yes [id number] 2mg Insert 1 [facility] (ESTRING) 2 3-18 Each into ity of mg (7.5 mcg 00:00: vagina [place] /24 hour) 00 every 3 Medical vaginal (three) Branch ring months. follow package directions estradioL Yes [id number] 2mg Insert 1 [facility] (ESTRING) 2 3-18 Each into ity of mg (7.5 mcg 00:00: vagina [place] /24 hour) 00 every 3 Medical vaginal (three) Branch ring months. follow package directions estradioL Yes [id number] 2mg Insert 1 [facility] (ESTRING) 2 3-18 Each into ity of mg (7.5 mcg 00:00: vagina [place] /24 hour) 00 every 3 Medical vaginal (three) Branch ring months. follow package directions estradioL Yes [id number] 2mg Insert 1 [facility] (ESTRING) 2 3-18 Each into ity of mg (7.5 mcg 00:00: vagina [place] /24 hour) 00 every 3 Medical vaginal (three) Branch ring months. follow package directions estradioL Yes [id number] 2mg Insert 1 [facility] (ESTRING) 2 3-18 Each into ity of mg (7.5 mcg 00:00: vagina [place] /24 hour) 00 every 3 Medical vaginal (three) Branch ring months. follow package directions estradioL Yes [id number] 2mg Insert 1 [facility] (ESTRING) 2 3-18 Each into ity of mg (7.5 mcg 00:00: vagina [place] /24 hour) 00 every 3 Medical vaginal (three) Branch ring months. follow package directions estradioL Yes [id number] 2mg Insert 1 [facility] (ESTRING) 2 3-18 Each into ity of mg (7.5 mcg 00:00: vagina [place] /24 hour) 00 every 3 [facility] (three) Branch ring months. follow package directions estradioL Yes [id number] 2mg Insert 1 [facility] (E[facility]) 2 3-18 Each into [facility] mg (7.5 mcg 00:[place]: [place] /24 hour) 00 every 3 [facility] vaginal (three) Branch ring months. follow package directions estradioL Yes [id number] 2mg Insert 1 [facility] (ESTRING) 2 3-18 Each into [facility] mg (7.5 mcg 00:00: [place] /24 hour) 00 every 3 [facility] vaginal (three) Branch ring months. follow package directions estradioL Yes [id number] 2mg Insert 1 [facility] (ESTRING) 2 3-18 Each into [facility] mg (7.5 mcg 00:00: [place] /24 hour) 00 every 3 [facility] vaginal (three) Branch ring months. follow package directions estradioL Yes [id number] 2mg Insert 1 [facility] (ESTRING) 2 3-18 Each into [facility] mg (7.5 mcg 00:00: [place] /24 hour) 00 every 3 [facility] vaginal (three) Branch ring months. follow package directions estradioL Yes [id number] 2mg Insert 1 [facility] (ESTRING) 2 3-18 Each into [facility] mg (7.5 mcg 00:00: [place] /24 hour) 00 every 3 [facility] vaginal (three) Branch ring months. follow package directions estradioL Yes [id number] 2mg Insert 1 [facility] (ESTRING) 2 3-18 Each into [facility] mg (7.5 mcg 00:00: [place] /24 hour) 00 every 3 [facility] vaginal (three) Branch ring months. follow package directions estradioL Yes [id number] 2mg Insert 1 [facility] (ESTRING) 2 3-18 Each into [facility] of mg (7.5 mcg 00:00: [place] /24 hour) 00 every 3 [facility] vaginal (three) Branch ring months. follow package directions estradioL Yes [id number] 2mg Insert 1 [facility] (ESTRING) 2 3-18 Each into [facility] of mg (7.5 mcg 00:00: [place] /24 hour) 00 every 3 [facility] vaginal (three) Branch ring months. follow package directions estradioL Yes [id number] 2mg Insert 1 [facility] (ESTRING) 2 3-18 Each into [facility] of mg (7.5 mcg 00:00: [place] /24 hour) 00 every 3 [facility] vaginal (three) Branch ring months. follow package directions estradioL Yes [id number] 2mg Insert 1 [facility] (ESTRING) 2 3-18 Each into [facility] mg (7.5 mcg 00:00: [place] /24 hour) 00 every 3 [facility] vaginal (three) Branch ring months. follow package directions estradioL Yes [id number] 2mg Insert 1 [facility] (ESTRING) 2 3-18 Each into [facility] of mg (7.5 mcg 00:00: [place] /24 hour) 00 every 3 [facility] vaginal (three) Branch ring months. follow package directions estradioL Yes [id number] 2mg Insert 1 [facility] (ESTRING) 2 3-18 Each into [facility] mg (7.5 mcg 00:00: [place] /24 hour) 00 every 3 [facility] vaginal (three) Branch ring months. follow package directions estradioL Yes [id number] 2mg Insert 1 [facility] (ESTRING) 2 3-18 Each into [facility] mg (7.5 mcg 00:00: [facility] [place] /24 hour) 00 every 3 [facility] vaginal (three) Branch ring months. follow package directions estradioL Yes [id number] 2mg Insert 1 [facility] (ESTRING) 2 3-18 Each into [facility] mg (7.5 mcg 00:00: [place] /24 hour) 00 every 3 [facility] vaginal (three) Branch ring months. follow package directions estradioL Yes [id number] 2mg Insert 1 [facility] (ESTRING) 2 3-18 Each into [facility] of mg (7.5 mcg 00:00: [place] /24 hour) 00 every 3 [facility] vaginal (three) Branch ring months. follow package directions estradioL Yes [id number] 2mg Insert 1 [facility] (ESTRING) 2 3-18 Each into [facility] mg (7.5 mcg 00:00: [facility] [place] /24 hour) 00 every 3 [facility] vaginal (three) Branch ring months. follow package directions estradioL Yes [id number] 2mg Insert 1 [facility] (ESTRING) 2 3-18 Each into [facility] of mg (7.5 mcg 00:00: [facility] [place] /24 hour) 00 every 3 [facility] vaginal (three) Branch ring months. follow package directions estradioL Yes [id number] 2mg Insert 1 [facility] (ESTRING) 2 3-18 Each into [facility] mg (7.5 mcg 00:00: [facility] [place] /24 hour) 00 every 3 [facility] vaginal (three) Branch ring months. follow package directions estradioL Yes [id number] 2mg Insert 1 [facility] (ESTRING) 2 3-18 Each into [facility] mg (7.5 mcg 00:00: [facility] [place] /24 hour) 00 every 3 [facility] vaginal (three) Branch ring months. follow package directions estradioL Yes [id number] 2mg Insert 1 [facility] (ESTRING) 2 3-18 Each into [facility] of mg (7.5 mcg 00:00: [place] /24 hour) 00 every 3 [facility] vaginal (three) Branch ring months. follow package directions estradioL Yes [id number] 2mg Insert 1 [facility] (ESTRING) 2 3-18 Each into [facility] mg (7.5 mcg 00:00: [facility] [place] /24 hour) 00 every 3 [facility] vaginal (three) Branch ring months. follow package directions estradioL Yes [id number] 2mg Insert 1 [facility] (ESTRING) 2 3-18 Each into [facility] of mg (7.5 mcg 00:00: [facility] [place] /24 hour) 00 every 3 [facility] vaginal (three) Branch ring months. follow package directions estradioL Yes [id number] 2mg Insert 1 [facility] (ESTRING) 2 3-18 Each into [facility] of mg (7.5 mcg 00:00: [facility] [place] /24 hour) 00 every 3 [facility] vaginal (three) Branch ring months. follow package directions estradioL Yes [id number] 2mg Insert 1 [facility] (ESTRING) 2 3-18 Each into [facility] of mg (7.5 mcg 00:00: [facility] [place] /24 hour) 00 every 3 [facility] vaginal (three) Branch ring months. follow package directions estradioL Yes [id number] 2mg Insert 1 [facility] (ESTRING) 2 3-18 Each into [facility] mg (7.5 mcg 00:00: [facility] [place] /24 hour) 00 every 3 [facility] vaginal (three) Branch ring months. follow package directions estradioL Yes [id number] 2mg Insert 1 [facility] (ESTRING) 2 3-18 Each into [facility] of mg (7.5 mcg 00:00: [facility] [place] /24 hour) 00 every 3 [facility] vaginal (three) Branch ring months. follow package directions estradioL Yes [id number] 2mg Insert 1 [facility] (ESTRING) 2 3-18 Each into [facility] of mg (7.5 mcg 00:00: [place] /24 hour) 00 every 3 [facility] vaginal (three) Branch ring months. follow package directions estradioL Yes [id number] 2mg Insert 1 [facility] (ESTRING) 2 3-18 Each into [facility] mg (7.5 mcg 00:00: [facility] [place] /24 hour) 00 every 3 [facility] vaginal (three) Branch ring months. follow package directions estradioL Yes [id number] 2mg Insert 1 [facility] (ESTRING) 2 3-18 Each into [facility] mg (7.5 mcg 00:00: [facility] [place] /24 hour) 00 every 3 [facility] vaginal (three) Branch ring months. follow package directions estradioL Yes [id number] 2mg Insert 1 [facility] (ESTRING) 2 3-18 Each into [facility] mg (7.5 mcg 00:00: [facility] [place] /24 hour) 00 every 3 [facility] vaginal (three) Branch ring months. follow package directions estradioL Yes [id number] 2mg Insert 1 [facility] (ESTRING) 2 3-18 Each into [facility] of mg (7.5 mcg 00:00: [facility] [place] /24 hour) 00 every 3 [facility] vaginal (three) Branch ring months. follow package directions estradioL Yes [id number] 2mg Insert 1 [facility] (ESTRING) 2 3-18 Each into [facility] of mg (7.5 mcg 00:00: [facility] [place] /24 hour) 00 every 3 [facility] vaginal (three) Branch ring months. follow package directions estradioL Yes [id number] 2mg Insert 1 [facility] (ESTRING) 2 3-18 Each into [facility] of mg (7.5 mcg 00:00: [facility] [place] /24 hour) 00 every 3 [facility] vaginal (three) Branch ring months. follow package directions estradioL Yes [id number] 2mg Insert 1 [facility] (ESTRING) 2 3-18 Each into [facility] of mg (7.5 mcg 00:00: [facility] [place] /24 hour) 00 every 3 [facility] vaginal (three) Branch ring months. follow package directions estradioL Yes [id number] 2mg Insert 1 [facility] (ESTRING) 2 3-18 Each into [facility] of mg (7.5 mcg 00:00: [facility] [place] /24 hour) 00 every 3 [facility] vaginal (three) Branch ring months. follow package directions estradioL Yes [id number] 2mg Insert 1 [facility] (ESTRING) 2 3-18 Each into [facility] of mg (7.5 mcg 00:00: [facility] [place] /24 hour) 00 every 3 [facility] vaginal (three) Branch ring months. follow package directions estradioL Yes [id number] 2mg Insert 1 [facility] (ESTRING) 2 3-18 Each into [facility] of mg (7.5 mcg 00:00: [facility] [place] /24 hour) 00 every 3 [facility] vaginal (three) Branch ring months. follow package directions estradioL Yes [id number] 2mg Insert 1 [facility] (ESTRING) 2 3-18 Each into [facility] mg (7.5 mcg 00:00: [facility] [place] /24 hour) 00 every 3 [facility] vaginal (three) Branch ring months. follow package directions estradioL Yes [id number] 2mg Insert 1 [facility] (ESTRING) 2 3-18 Each into [facility] of mg (7.5 mcg 00:00: [facility] [place] /24 hour) 00 every 3 [facility] vaginal (three) Branch ring months. follow package directions estradioL Yes [id number] 2mg Insert 1 [facility] (ESTRING) 2 3-18 Each into [facility] of mg (7.5 mcg 00:00: [facility] [place] /24 hour) 00 every 3 [facility] vaginal (three) Branch ring months. follow package directions estradioL Yes [id number] 2mg Insert 1 [facility] (ESTRING) 2 3-18 Each into [facility] of mg (7.5 mcg 00:00: [facility] [place] /24 hour) 00 every 3 [facility] vaginal (three) Branch ring months. follow package directions estradioL Yes [id number] 2mg Insert 1 [facility] (ESTRING) 2 3-18 Each into [facility] of mg (7.5 mcg 00:00: [facility] [place] /24 hour) 00 every 3 [facility] vaginal (three) Branch ring months. follow package directions estradioL Yes [id number] 2mg Insert 1 [facility] (ESTRING) 2 3-18 Each into [facility] mg (7.5 mcg 00:00: [facility] [place] /24 hour) 00 every 3 [facility] vaginal (three) Branch ring months. follow package directions estradioL Yes [id number] 2mg Insert 1 [facility] (ESTRING) 2 3-18 Each into [facility] of mg (7.5 mcg 00:00: [facility] [place] /24 hour) 00 every 3 [facility] vaginal (three) Branch ring months. follow package directions estradioL Yes [id number] 2mg Insert 1 [facility] (ESTRING) 2 3-18 Each into [facility] of mg (7.5 mcg 00:00: [facility] [place] /24 hour) 00 every 3 [facility] vaginal (three) Branch ring months. follow package directions estradioL Yes [id number] 2mg Insert 1 [facility] (ESTRING) 2 3-18 Each into [facility] of mg (7.5 mcg 00:00: [facility] [place] /24 hour) 00 every 3 [facility] vaginal (three) Branch ring months. follow package directions estradioL Yes [id number] 2mg Insert 1 [facility] (ESTRING) 2 3-18 Each into [facility] of mg (7.5 mcg 00:00: [facility] [place] /24 hour) 00 every 3 [facility] vaginal (three) Branch ring months. follow package directions estradioL Yes [id number] 2mg Insert 1 [facility] (ESTRING) 2 3-18 Each into [facility] of mg (7.5 mcg 00:00: [facility] [place] /24 hour) 00 every 3 [facility] vaginal (three) Branch ring months. follow package directions estradioL Yes [id number] 2mg Insert 1 [facility] (ESTRING) 2 3-18 Each into [facility] of mg (7.5 mcg 00:00: [facility] [place] /24 hour) 00 every 3 [facility] vaginal (three) Branch ring months. follow package directions estradioL Yes [id number] 2mg Insert 1 [facility] (ESTRING) 2 3-18 Each into [facility] of mg (7.5 mcg 00:00: [facility] [place] /24 hour) 00 every 3 [facility] vaginal (three) Branch ring months. follow package directions estradioL Yes [id number] 2mg Insert 1 [facility] (ESTRING) 2 3-18 Each into [facility] of mg (7.5 mcg 00:00: [facility] [place] /24 hour) 00 every 3 [facility] vaginal (three) Branch ring months. follow package directions estradioL Yes [id number] 2mg Insert 1 [facility] (ESTRING) 2 3-18 Each into [facility] of mg (7.5 mcg 00:00: [facility] [place] /24 hour) 00 every 3 [facility] vaginal (three) Branch ring months. follow package directions estradioL Yes [id number] 2mg Insert 1 [facility] (ESTRING) 2 3-18 Each into [facility] of mg (7.5 mcg 00:00: [facility] [place] /24 hour) 00 every 3 [facility] vaginal (three) Branch ring months. follow package directions estradioL Yes [id number] 2mg Insert 1 [facility] (ESTRING) 2 3-18 Each into [facility] of mg (7.5 mcg 00:00: [facility] [place] /24 hour) 00 every 3 [facility] vaginal (three) Branch ring months. follow package directions estradioL Yes [id number] 2mg Insert 1 [facility] (ESTRING) 2 3-18 Each into [facility] of mg (7.5 mcg 00:00: [facility] [place] /24 hour) 00 every 3 [facility] vaginal (three) Branch ring months. follow package directions estradioL Yes [id number] 2mg Insert 1 [facility] (ESTRING) 2 3-18 Each into [facility] of mg (7.5 mcg 00:00: [facility] [place] /24 hour) 00 every 3 [facility] vaginal (three) Branch ring months. follow package directions estradioL Yes [id number] 2mg Insert 1 [facility] (ESTRING) 2 3-18 Each into [facility] of mg (7.5 mcg 00:00: [facility] [place] /24 hour) 00 every 3 [facility] vaginal (three) Branch ring months. follow package directions estradioL Yes [id number] 2mg Insert 1 [facility] (ESTRING) 2 3-18 Each into [facility] of mg (7.5 mcg 00:00: [facility] [place] /24 hour) 00 every 3 [facility] vaginal (three) Branch ring months. follow package directions estradioL Yes [id number] 2mg Insert 1 [facility] (ESTRING) 2 3-18 Each into [facility] of mg (7.5 mcg 00:00: [facility] [place] /24 hour) 00 every 3 [facility] vaginal (three) Branch ring months. follow package directions estradioL Yes [id number] 2mg Insert 1 [facility] (ESTRING) 2 3-18 Each into [facility] of mg (7.5 mcg 00:00: [facility] [place] /24 hour) 00 every 3 [facility] vaginal (three) Branch ring months. follow package directions estradioL Yes [id number] 2mg Insert 1 [facility] (ESTRING) 2 3-18 Each into [facility] of mg (7.5 mcg 00:00: [facility] [place] /24 hour) 00 every 3 [facility] vaginal (three) Branch ring months. follow package directions estradioL Yes [id number] 2mg Insert 1 [facility] (ESTRING) 2 3-18 Each into [facility] of mg (7.5 mcg 00:00: [facility] [place] /24 hour) 00 every 3 [facility] vaginal (three) Branch ring months. follow package directions estradioL Yes [id number] 2mg Insert 1 [facility] (ESTRING) 2 3-18 Each into [facility] of mg (7.5 mcg 00:00: [facility] [place] /24 hour) 00 every 3 [facility] vaginal (three) Branch ring months. follow package directions estradioL Yes [id number] 2mg Insert 1 [facility] (ESTRING) 2 3-18 Each into [facility] of mg (7.5 mcg 00:00: [facility] [place] /24 hour) 00 every 3 [facility] vaginal (three) Branch ring months. follow package directions estradioL Yes [id number] 2mg Insert 1 [facility] (ESTRING) 2 3-18 Each into [facility] of mg (7.5 mcg 00:00: [facility] [place] /24 hour) 00 every 3 [facility] vaginal (three) Branch ring months. follow package directions estradioL Yes [id number] 2mg Insert 1 [facility] (ESTRING) 2 3-18 Each into [facility] of mg (7.5 mcg 00:00: [facility] [place] /24 hour) 00 every 3 [facility] vaginal (three) Branch ring months. follow package directions estradioL Yes [id number] 2mg Insert 1 [facility] (ESTRING) 2 3-18 Each into [facility] of mg (7.5 mcg 00:00: [facility] [place] /24 hour) 00 every 3 [facility] vaginal (three) Branch ring months. follow package directions estradioL Yes [id number] 2mg Insert 1 [facility] (ESTRING) 2 3-18 Each into [facility] of mg (7.5 mcg 00:00: [facility] [place] /24 hour) 00 every 3 [facility] vaginal (three) Branch ring months. follow package directions estradioL Yes [id number] 2mg Insert 1 [facility] (ESTRING) 2 3-18 Each into [facility] of mg (7.5 mcg 00:00: [facility] [place] /24 hour) 00 every 3 [facility] vaginal (three) Branch ring months. follow package directions estradioL Yes [id number] 2mg Insert 1 [facility] (ESTRING) 2 3-18 Each into [facility] of mg (7.5 mcg 00:00: [facility] [place] /24 hour) 00 every 3 [facility] vaginal (three) Branch ring months. follow package directions estradioL Yes [id number] 2mg Insert 1 [facility] (ESTRING) 2 3-18 Each into [facility] of mg (7.5 mcg 00:00: [facility] [place] /24 hour) 00 every 3 [facility] vaginal (three) Branch ring months. follow package directions estradioL Yes [id number] 2mg Insert 1 [facility] (ESTRING) 2 3-18 Each into [facility] of mg (7.5 mcg 00:00: [facility] [place] /24 hour) 00 every 3 [facility] vaginal (three) Branch ring months. follow package directions estradioL Yes [id number] 2mg Insert 1 [facility] (ESTRING) 2 3-18 Each into [facility] of mg (7.5 mcg 00:00: [facility] [place] /24 hour) 00 every 3 [facility] vaginal (three) Branch ring months. follow package directions estradioL Yes [id number] 2mg Insert 1 [facility] (ESTRING) 2 3-18 Each into [facility] of mg (7.5 mcg 00:00: [facility] [place] /24 hour) 00 every 3 [facility] vaginal (three) Branch ring months. follow package directions estradioL Yes [id number] 2mg Insert 1 [facility] (ESTRING) 2 3-18 Each into [facility] of mg (7.5 mcg 00:00: [facility] [place] /24 hour) 00 every 3 [facility] vaginal (three) Branch ring months. follow package directions estradioL Yes [id number] 2mg Insert 1 [facility] (ESTRING) 2 3-18 Each into [facility] of mg (7.5 mcg 00:00: [facility] [place] /24 hour) 00 every 3 [facility] vaginal (three) Branch ring months. follow package directions estradioL Yes [id number] 2mg Insert 1 [facility] (ESTRING) 2 3-18 Each into [facility] of mg (7.5 mcg 00:00: [facility] [place] /24 hour) 00 every 3 [facility] vaginal (three) Branch ring months. follow package directions estradioL Yes [id number] 2mg Insert 1 [facility] (ESTRING) 2 3-18 Each into [facility] of mg (7.5 mcg 00:00: [facility] [place] /24 hour) 00 every 3 [facility] vaginal (three) Branch ring months. follow package directions estradioL Yes [id number] 2mg Insert 1 [facility] (ESTRING) 2 3-18 Each into [facility] of mg (7.5 mcg 00:00: [facility] [place] /24 hour) 00 every 3 [facility] vaginal (three) Branch ring months. follow package directions MELOXICAM Yes [id number] Take 1 [facility] 7.5 mg 3-08 9107 tablet by [facility] tablet 00:00: mouth once daily [facility] MELOXICAM 0 Yes [id number] Take 1 [facility] 7.5 mg 3-08 9107 tablet by [facility] of tablet 00:00: mouth once daily [facility] MELOXICAM 0 Yes [id number] Take 1 [facility] 7.5 mg 3-08 9107 tablet by [facility] of tablet 00:00: mouth once daily [facility] MELOXICAM 0 Yes [id number] Take 1 [facility] 7.5 mg 3-08 9107 tablet by [facility] of tablet 00:00: mouth once daily [facility] MELOXICAM Yes [id number] Take 1 [facility] 7.5 mg 3-08 9107 tablet by [facility] of tablet 00:00: mouth once daily [facility] MELOXICAM Yes [id number] Take 1 [facility] 7.5 mg 3-08 9107 tablet by [facility] of tablet 00:00: mouth once daily [facility] MELOXICAM Yes [id number] Take 1 [facility] 7.5 mg 3-08 9107 tablet by [facility] of tablet 00:00: mouth once daily [facility] MELOXICAM Yes [id number] Take 1 [facility] 7.5 mg 3-08 9107 tablet by [facility] of tablet 00:00: mouth once daily [facility] MELOXICAM 0 Yes [id number] Take 1 [facility] 7.5 mg 3-08 9107 tablet by [facility] of tablet 00:00: mouth once daily [facility] MELOXICAM 0 Yes [id number] Take 1 [facility] 7.5 mg 3-08 9107 tablet by [facility] of tablet 00:00: mouth once daily [facility] MELOXICAM 0 Yes [id number] Take 1 [facility] 7.5 mg 3-08 9107 tablet by [facility] of tablet 00:00: mouth once daily [facility] MELOXICAM 0 Yes [id number] Take 1 [facility] 7.5 mg 3-08 9107 tablet by [facility] of tablet 00:00: mouth once daily [facility] MELOXICAM 0 Yes [id number] Take 1 [facility] 7.5 mg 3-08 9107 tablet by [facility] of tablet 00:00: mouth once daily [facility] MELOXICAM Yes [id number] Take 1 [facility] 7.5 mg 3-08 9107 tablet by [facility] of tablet 00:00: mouth once daily [facility] MELOXICAM Yes [id number] Take 1 [facility] 7.5 mg 3-08 9107 tablet by [facility] of tablet 00:00: mouth once daily [facility] MELOXICAM Yes [id number] Take 1 [facility] 7.5 mg 3-08 9107 tablet by [facility] of tablet 00:00: mouth once daily [facility] MELOXICAM Yes [id number] Take 1 [facility] 7.5 mg 3-08 9107 tablet by [facility] of tablet 00:00: mouth once daily [facility] MELOXICAM Yes [id number] Take 1 [facility] 7.5 mg 3-08 9107 tablet by [facility] of tablet 00:00: mouth once daily [facility] MELOXICAM Yes [id number] Take 1 [facility] 7.5 mg 3-08 9107 tablet by [facility] of tablet 00:00: mouth once daily [facility] MELOXICAM Yes [id number] Take 1 [facility] 7.5 mg 3-08 9107 tablet by [facility] of tablet 00:00: mouth once daily [facility] MELOXICAM Yes [id number] Take 1 [facility] 7.5 mg 3-08 9107 tablet by [facility] of tablet 00:00: mouth once daily [facility] MELOXICAM Yes [id number] Take 1 [facility] 7.5 mg 3-08 9107 tablet by [facility] of tablet 00:00: mouth once daily [facility] MELOXICAM Yes [id number] Take 1 [facility] 7.5 mg 3-08 9107 tablet by [facility] of tablet 00:00: mouth once daily [facility] MELOXICAM Yes [id number] Take 1 [facility] 7.5 mg 3-08 9107 tablet by [facility] of tablet 00:00: mouth once daily [facility] MELOXICAM Yes [id number] Take 1 [facility] 7.5 mg 3-08 9107 tablet by [facility] of tablet 00:00: mouth once daily [facility] MELOXICAM Yes [id number] Take 1 [facility] 7.5 mg 3-08 9107 tablet by [facility] of tablet 00:00: mouth once daily [facility] MELOXICAM Yes [id number] Take 1 [facility] 7.5 mg 3-08 9107 tablet by [facility] of tablet 00:00: mouth once daily [facility] MELOXICAM Yes [id number] Take 1 [facility] 7.5 mg 3-08 9107 tablet by [facility] of tablet 00:00: mouth once daily [facility] MELOXICAM Yes [id number] Take 1 [facility] 7.5 mg 3-08 9107 tablet by [facility] of tablet 00:00: mouth once daily [facility] MELOXICAM Yes [id number] Take 1 [facility] 7.5 mg 3-08 9107 tablet by [facility] of tablet 00:00: mouth once daily [facility] MELOXICAM Yes [id number] Take 1 [facility] 7.5 mg 3-08 9107 tablet by [facility] of tablet 00:00: mouth once daily [facility] MELOXICAM Yes [id number] Take 1 [facility] 7.5 mg 3-08 9107 tablet by [facility] of tablet 00:00: mouth once daily [facility] MELOXICAM Yes [id number] Take 1 [facility] 7.5 mg 3-08 9107 tablet by [facility] of tablet 00:00: mouth once daily [facility] MELOXICAM Yes [id number] Take 1 [facility] 7.5 mg 3-08 9107 tablet by [facility] of tablet 00:00: mouth once daily [facility] MELOXICAM Yes [id number] Take 1 [facility] 7.5 mg 3-08 9107 tablet by [facility] of tablet 00:00: mouth once daily [facility] MELOXICAM Yes [id number] Take 1 [facility] 7.5 mg 3-08 9107 tablet by [facility] of tablet 00:00: mouth once daily [facility] MELOXICAM Yes [id number] Take 1 [facility] 7.5 mg 3-08 9107 tablet by [facility] of tablet 00:00: mouth once daily [facility] MELOXICAM Yes [id number] Take 1 [facility] 7.5 mg 3-08 9107 tablet by [facility] of tablet 00:00: mouth once daily [facility] MELOXICAM Yes [id number] Take 1 [facility] 7.5 mg 3-08 9107 tablet by [facility] of tablet 00:00: mouth once daily [facility] MELOXICAM Yes [id number] Take 1 [facility] 7.5 mg 3-08 9107 tablet by [facility] of tablet 00:00: mouth once daily [facility] MELOXICAM Yes [id number] Take 1 [facility] 7.5 mg 3-08 9107 tablet by [facility] of tablet 00:00: mouth once daily [facility] MELOXICAM Yes [id number] Take 1 [facility] 7.5 mg 3-08 9107 tablet by [facility] of tablet 00:00: mouth once daily [facility] MELOXICAM Yes [id number] Take 1 [facility] 7.5 mg 3-08 9107 tablet by [facility] of tablet 00:00: mouth once daily [facility] MELOXICAM Yes [id number] Take 1 [facility] 7.5 mg 3-08 9107 tablet by [facility] of tablet 00:00: mouth once daily [facility] MELOXICAM Yes [id number] Take 1 [facility] 7.5 mg 3-08 9107 tablet by [facility] of tablet 00:00: mouth once daily [facility] MELOXICAM Yes [id number] Take 1 [facility] 7.5 mg 3-08 9107 tablet by [facility] of tablet 00:00: mouth once daily [facility] MELOXICAM Yes [id number] Take 1 [facility] 7.5 mg 3-08 9107 tablet by [facility] of tablet 00:00: mouth once daily [facility] MELOXICAM Yes [id number] Take 1 [facility] 7.5 mg 3-08 9107 tablet by [facility] of tablet 00:00: mouth once daily [facility] MELOXICAM Yes [id number] Take 1 [facility] 7.5 mg 3-08 9107 tablet by [facility] of tablet 00:00: mouth once daily [facility] MELOXICAM Yes [id number] Take 1 [facility] 7.5 mg 3-08 9107 tablet by [facility] of tablet 00:00: mouth once daily [facility] MELOXICAM Yes [id number] Take 1 [facility] 7.5 mg 3-08 9107 tablet by [facility] of tablet 00:00: mouth once daily [facility] MELOXICAM Yes [id number] Take 1 [facility] 7.5 mg 3-08 9107 tablet by [facility] of tablet 00:00: mouth once daily [facility] MELOXICAM Yes [id number] Take 1 [facility] 7.5 mg 3-08 9107 tablet by [facility] of tablet 00:00: mouth once daily [facility] MELOXICAM Yes [id number] Take 1 [facility] 7.5 mg 3-08 9107 tablet by [facility] of tablet 00:00: mouth once daily [facility] MELOXICAM Yes [id number] Take 1 [facility] 7.5 mg 3-08 9107 tablet by [facility] of tablet 00:00: mouth once daily [facility] MELOXICAM Yes [id number] Take 1 [facility] 7.5 mg 3-08 9107 tablet by [facility] of tablet 00:00: mouth once daily [facility] MELOXICAM Yes [id number] Take 1 [facility] 7.5 mg 3-08 9107 tablet by [facility] of tablet 00:00: mouth once daily [facility] MELOXICAM Yes [id number] Take 1 [facility] 7.5 mg 3-08 9107 tablet by [facility] of tablet 00:00: mouth once daily [facility] MELOXICAM Yes [id number] Take 1 [facility] 7.5 mg 3-08 9107 tablet by [facility] of tablet 00:00: mouth once daily [facility] MELOXICAM Yes [id number] Take 1 [facility] 7.5 mg 3-08 9107 tablet by [facility] of tablet 00:00: mouth once daily [facility] MELOXICAM Yes [id number] Take 1 [facility] 7.5 mg 3-08 9107 tablet by [facility] of tablet 00:00: mouth once daily [facility] MELOXICAM Yes [id number] Take 1 [facility] 7.5 mg 3-08 9107 tablet by [facility] of tablet 00:00: mouth once daily [facility] MELOXICAM Yes [id number] Take 1 [facility] 7.5 mg 3-08 9107 tablet by [facility] of tablet 00:00: mouth once daily [facility] MELOXICAM Yes [id number] Take 1 [facility] 7.5 mg 3-08 9107 tablet by [facility] of tablet 00:00: mouth once daily [facility] MELOXICAM Yes [id number] Take 1 [facility] 7.5 mg 3-08 9107 tablet by [facility] of tablet 00:00: mouth once daily [facility] MELOXICAM Yes [id number] Take 1 [facility] 7.5 mg 3-08 9107 tablet by [facility] of tablet 00:00: mouth once daily [facility] MELOXICAM Yes [id number] Take 1 [facility] 7.5 mg 3-08 9107 tablet by [facility] tablet 00:00: mouth once daily [facility] MELOXICAM Yes [id number] Take 1 [facility] 7.5 mg 3-08 9107 tablet by [facility] tablet 00:00: mouth once daily [facility] MELOXICAM Yes [id number] Take 1 [facility] 7.5 mg 3-08 9107 tablet by [facility] of tablet 00:00: mouth once daily [facility] MELOXICAM Yes [id number] Take 1 [facility] 7.5 mg 3-08 9107 tablet by [facility] tablet 00:00: mouth once daily [facility] MELOXICAM Yes [id number] Take 1 [facility] 7.5 mg 3-08 9107 tablet by [facility] of tablet 00:00: mouth once daily [facility] MELOXICAM Yes [id number] Take 1 [facility] 7.5 mg 3-08 9107 tablet by [facility] of tablet 00:00: mouth once daily [facility] MELOXICAM Yes [id number] Take 1 [facility] 7.5 mg 3-08 9107 tablet by [facility] tablet 00:00: mouth once daily [facility] MELOXICAM Yes [id number] Take 1 [facility] 7.5 mg 3-08 9107 tablet by [facility] of tablet 00:00: mouth once daily [facility] MELOXICAM Yes [id number] Take 1 [facility] 7.5 mg 3-08 9107 tablet by [facility] of tablet 00:00: mouth once daily [facility] MELOXICAM Yes [id number] Take 1 [facility] 7.5 mg 3-08 9107 tablet by [facility] of tablet 00:00: mouth once daily [facility] MELOXICAM Yes [id number] Take 1 [facility] 7.5 mg 3-08 9107 tablet by [facility] of tablet 00:00: mouth once daily [facility] MELOXICAM Yes [id number] Take 1 [facility] 7.5 mg 3-08 9107 tablet by [facility] of tablet 00:00: mouth once daily [facility] MELOXICAM Yes [id number] Take 1 [facility] 7.5 mg 3-08 9107 tablet by [facility] of tablet 00:00: mouth once daily [facility] MELOXICAM Yes [id number] Take 1 [facility] 7.5 mg 3-08 9107 tablet by [facility] of tablet 00:00: mouth once daily [facility] MELOXICAM Yes [id number] Take 1 [facility] 7.5 mg 3-08 9107 tablet by [facility] of tablet 00:00: mouth once daily [facility] MELOXICAM Yes [id number] Take 1 [facility] 7.5 mg 3-08 9107 tablet by [facility] of tablet 00:00: mouth once daily [facility] MELOXICAM Yes [id number] Take 1 [facility] 7.5 mg 3-08 9107 tablet by [facility] of tablet 00:00: mouth once daily [facility] MELOXICAM Yes [id number] Take 1 [facility] 7.5 mg 3-08 9107 tablet by [facility] of tablet 00:00: mouth once daily [facility] MELOXICAM Yes [id number] Take 1 [facility] 7.5 mg 3-08 9107 tablet by [facility] of tablet 00:00: mouth once daily [facility] MELOXICAM Yes [id number] Take 1 [facility] 7.5 mg 3-08 9107 tablet by [facility] of tablet 00:00: mouth once [place] 00 daily [facility] MELOXICAM Yes [id number] Take 1 [facility] 7.5 mg 3-08 9107 tablet by [facility] of tablet 00:00: mouth once daily [facility] MELOXICAM Yes [id number] Take 1 [facility] 7.5 mg 3-08 9107 tablet by [facility] of tablet 00:00: mouth once [facility] MELOXICAM Yes [id number] Take 1 [facility] 7.5 mg 3-08 9107 tablet by [facility] of tablet 00:00: mouth once daily [facility] MELOXICAM Yes [id number] Take 1 [facility] 7.5 mg 3-08 9107 tablet by [facility] tablet 00:00: mouth once daily [facility] MELOXICAM Yes [id number] Take 1 [facility] 7.5 mg 3-08 9107 tablet by [facility] of tablet 00:00: mouth once daily [facility] MELOXICAM Yes [id number] Take 1 [facility] 7.5 mg 3-08 9107 tablet by [facility] tablet 00:00: mouth once [facility] MELOXICAM Yes [id number] Take 1 [facility] 7.5 mg 3-08 9107 tablet by [facility] tablet 00:00: mouth once daily [facility] MELOXICAM Yes [id number] Take 1 [facility] 7.5 mg 3-08 9107 tablet by [facility] of tablet 00:00: mouth once daily [facility] MELOXICAM Yes [id number] Take 1 [facility] 7.5 mg 3-08 9107 tablet by [facility] of tablet 00:00: mouth once daily [facility] MELOXICAM Yes [id number] Take 1 [facility] 7.5 mg 3-08 9107 tablet by [facility] of tablet 00:00: mouth once daily [facility] MELOXICAM Yes [id number] Take 1 [facility] 7.5 mg 3-08 9107 tablet by [facility] of tablet 00:00: mouth once daily [facility] MELOXICAM Yes [id number] Take 1 [facility] 7.5 mg 3-08 9107 tablet by [facility] of tablet 00:00: mouth once daily [facility] MELOXICAM Yes [id number] Take 1 [facility] 7.5 mg 3-08 9107 tablet by [facility] of tablet 00:00: mouth once daily [facility] MELOXICAM Yes [id number] Take 1 [facility] 7.5 mg 3-08 9107 tablet by [facility] tablet 00:00: mouth once daily [facility] MELOXICAM Yes [id number] Take 1 [facility] 7.5 mg 3-08 9107 tablet by [facility] of tablet 00:00: mouth once daily [facility] MELOXICAM Yes [id number] Take 1 [facility] 7.5 mg 3-08 9107 tablet by [facility] of tablet 00:00: mouth once daily [facility] MELOXICAM Yes [id number] Take 1 [facility] 7.5 mg 3-08 9107 tablet by [facility] of tablet 00:00: mouth once daily [facility] MELOXICAM Yes [id number] Take 1 [facility] 7.5 mg 3-08 9107 tablet by [facility] of tablet 00:00: mouth once daily [facility] MELOXICAM Yes [id number] Take 1 [facility] 7.5 mg 3-08 9107 tablet by [facility] of tablet 00:00: mouth once daily [facility] MELOXICAM Yes [id number] Take 1 [facility] 7.5 mg 3-08 9107 tablet by [facility] of tablet 00:00: mouth once daily [facility] MELOXICAM Yes [id number] Take 1 [facility] 7.5 mg 3-08 9107 tablet by [facility] of tablet 00:00: mouth once daily [facility] MELOXICAM Yes [id number] Take 1 [facility] 7.5 mg 3-08 9107 tablet by [facility] of tablet 00:00: mouth once daily [facility] MELOXICAM Yes [id number] Take 1 [facility] 7.5 mg 3-08 9107 tablet by [facility] tablet 00:00: mouth once daily [facility] MELOXICAM 3- No [id number] Take 1 [facility] 7.5 mg 3-08 -28 9107 tablet by [facility] of tablet 00:00: 00:00 mouth once s 00 :00 daily [facility] benzonatate Yes 100mg Q.[id number] Take 100 [facility] (TESSALON) 10-[id number] 100 MG 09:55: 3D mouth 3 [facility] capsule 34 (three) l times a day as needed for cough. montelukast Yes 10mg QD Take 10 mg [facility] (SINGULAIR) [address] 10 mg 09:55: nightly. [facility]ospita tablet 34 l albuterol Yes 2.5mg Q6H Take 2.5 [facility] (PROVENTIL) [address] 2.5 mg /3 09:55: nebulizati Ho spita mL (0.083 34 on every 6 l %) (six) nebulizer hours as solution needed for wheezing. budesonide- Yes 2{puff} Q.5D Inhale 2 [facility] formoterol [address] (SYMBICORT) 09:55: (two) Hospi ta 160-4.5 34 times a l mcg/actuati day. on inhaler omalizumab Yes Inject Metho di (XOLAIR) 10-[address] 150 mg 09:55: skin once. Hospi ta injection 34 l ipratropium Yes 3mL Q.25D Take 3 mL [facility] -albuterol 10-[address] (DUO-NEB) 09:55: nebulizati Ho spita 0.5-2.5 34 on 4 l mg/mL (four) nebulizer times a day. itraconazol Yes 200mg QD Take 200 M [facility] e 3-[address] (SPORANOX) 09:55: mouth [facility] 100 mg 34 daily. l capsule predniSONE Yes 10mg QD Take 10 mg [facility] (DELTASONE) [address] 10 mg 09:55: daily. [facility]ospita tablet 34 l calcium Yes 1{tbl} Q.5D Take 1 [facility] citrate-vit 10-[address] [facility] D3 09:55: mouth 2 [facility]ospita (CITRACAL+D 34 (two) l ) 315-200 times a mg-unit per day. tablet esomeprazol Yes 40mg QD Take 40 mg [facility] (NexIUM) 3-[address] 40 MG 09:55: daily [facility]ospita capsule 34 before l breakfast. albuterol 2017-0 Yes 2{puff} Q6H Inhale 2 [facility] (PROAIR 3-[address] HFA,PROVENT 09:55: every 6 [facility] [place] 34 (six) l HFA,VENTOLI hours as N HFA) 90 needed for mcg/actuati wheezing. on inhaler glimepiride 2017-0 Yes 2mg QD Take 2 mg [facility] (AMARYL) 2 -[address] MG tablet 09:55: daily [facility]ospita 34 before l breakfast. metFORMIN 2017-0 Yes 500mg Q.5D Take 500 [facility] (GLUCOPHAGE 3-[address] ) 500 mg 09:55: mouth 2 Hospit a tablet 34 (two) l times a day with meals. potassium 2017-0 Yes 10meq Q.5D Take 10 Meth iman chloride 3-[address] (K-DUR,KLOR 09:55: mouth 2 [facility] [place] -CON) 10 34 (two) l MEQ CR times a tablet day. pregabalin 2017-0 Yes 75mg Q.5D Take 75 mg [facility] (LYRICA) 75 -[address] MG capsule 09:55: (two) Hospit a 34 times a l day. cyclobenzap 2017-0 Yes 10mg Q.[id number] Take 10 mg [facility] rine 3-01 [id number] mouth [address] (FLEXERIL) 09:55: 3D (three) Hosp [facility] 10 mg 34 times a l tablet day as needed for muscle spasms. zolpidem 2017-0 Yes 10mg QD Take 10 mg [facility] (AMBIEN) 10 3-[address] mg tablet 09:55: nightly as Ho spita 34 needed for l sleep. benzonatate 2017-0 Yes 100mg Q.[id number] Take 100 [facility] (TESSALON) 3-[id number] 100 MG 09:55: 3D mouth 3 [facility]ospita capsule 34 (three) l times a day as needed for cough. montelukast 2017-0 Yes 10mg QD Take 10 mg [facility] (SINGULAIR) 3-[address] 10 mg 09:55: nightly. Hospita tablet 34 l albuterol Yes 2.5mg Q6H Take 2.5 [facility] (PROVENTIL) 3-[address] 2.5 mg /3 09:55: nebulizati Ho spita mL (0.083 34 on every 6 l %) (six) nebulizer hours as solution needed for wheezing. metFORMIN Yes 500mg Q.5D Take 500 [facility] (GLUCOPHAGE 3-[address] ) 500 mg 09:55: mouth 2 Hospit a tablet 34 (two) l times a day with meals. budesonide- Yes 2{puff} Q.5D Inhale 2 [facility] formoterol 3-[address] (SYMBICORT) 09:55: (two) Hospi ta 160-4.5 34 times a l mcg/actuati day. on inhaler omalizumab Yes Inject Metho di (XOLAIR) 10-[address] 150 mg 09:55: skin once. Hospi ta injection 34 l ipratropium Yes 3mL Q.25D Take 3 mL [facility] -albuterol -[address] (DUO-NEB) 09:55: nebulizati Ho spita 0.5-2.5 34 on 4 l mg/mL (four) nebulizer times a day. itraconazol Yes 200mg QD Take 200 M ethodi e 3-[address] (SPORANOX) 09:55: mouth Hospit a 100 mg 34 daily. l capsule predniSONE Yes 10mg QD Take 10 mg [facility] (DELTASONE) 10-[address] 10 mg 09:55: daily. Hospita tablet 34 l calcium Yes 1{tbl} Q.5D Take 1 [facility] citrate-vit 3-[address] [place] D3 09:55: mouth 2 Hospita (CITRACAL+D 34 (two) l ) 315-200 times a mg-unit per day. tablet esomeprazol Yes 40mg QD Take 40 mg [facility] (NexIUM) 3-[address] 40 MG 09:55: daily Hospita capsule 34 before l breakfast. albuterol Yes 2{puff} Q6H Inhale 2 M [facility] (PROAIR 3-[address] HFA,PROVENT 09:55: every 6 [facility] [place] 34 (six) l HFA,VENTOLI hours as N HFA) 90 needed for mcg/actuati wheezing. on inhaler glimepiride Yes 2mg QD Take 2 mg M [facility] (AMARYL) 2 3-[address] MG tablet 09:55: daily Hospita 34 before l breakfast. potassium 2017-0 Yes 10meq Q.5D Take 10 Meth iman chloride 3-[address] (K-DUR,KLOR 09:55: mouth 2 [facility] [place] -CON) 10 34 (two) l MEQ CR times a tablet day. pregabalin Yes 75mg Q.5D Take 75 mg [facility] (LYRICA) [address] MG capsule 09:55: (two) Hospit a 34 times a l day. cyclobenzap Yes 10mg Q.[id number] Take 10 mg [facility] rine 10-04 [id number] mouth [address] (FLEXERIL) 09:55: 3D (three) Hosp jimmy 10 mg 34 times a l tablet day as needed for muscle spasms. zolpidem Yes 10mg QD Take 10 mg [facility] (AMBIEN) [address] mg tablet 09:55: nightly as Ho spita 34 needed for l sleep. Immunizations Ordered Filled Immunization Date Status Comments [facility] e Immunization Name Name Influenza High Dose 2022-07-11 Completed [facility] 00:00:00 [facility] Pneumococcal 20 2022-07-11 Completed Universit y of Conjugate, PCV20 00:00:00 [facility] dical (Prevnar 20) Branch Influenza High Dose 2022-07-11 Completed [facility] 00:00:00 [facility] Pneumococcal 20 2022-07-11 Completed Universit y of Conjugate, PCV20 00:00:00 [facility] dical (Prevnar 20) Branch Influenza High Dose 2022-07-11 Completed [facility] 00:00:00 [facility] Pneumococcal 20 2022-07-11 Completed Universit y of Conjugate, PCV20 00:00:00 [facility] dical (Prevnar 20) [place] Influenza High Dose 2022-07-11 Completed [facility] of Quad 00:00:00 [facility] Pneumococcal 20 2022-07-11 Completed Universit y of Conjugate, PCV20 00:00:00 [facility] dical (Prevnar 20) Branch Influenza High Dose 2022-07-11 Completed [facility] 00:00:00 [facility] Pneumococcal 20 2022-07-11 Completed Universit y of Conjugate, PCV20 00:00:00 [facility] dical (Prevnar 20) Branch Influenza High Dose 2022-07-11 Completed [facility] 00:00:00 [facility] Pneumococcal 20 2022-07-11 Completed Universit y of Conjugate, PCV20 00:00:00 [facility] dical (Prevnar 20) Branch Influenza High Dose 2022-07-11 Completed [facility]ive [facility] of [facility] 00:00:00 [facility] Pneumococcal 20 2022-07-11 Completed Universit y of Conjugate, PCV20 00:00:00 [facility] dical (Prevnar 20) Branch Influenza High Dose 2022-07-11 Completed [facility] of [facility] 00:00:00 [facility] Pneumococcal 20 2022-07-11 Completed Universit y of Conjugate, PCV20 00:00:00 [facility] dical (Prevnar 20) Branch Influenza High Dose 2022-07-11 Completed Unive rs[facility] of Quad 00:00:00 [facility] Pneumococcal 20 2022-07-11 Completed Universit y of Conjugate, PCV20 00:00:00 [facility] dical (Prevnar 20) Branch TDAP 2022-02-13 Completed University of 00:00:00 [facility] TDAP 2022-02-13 Completed University of 00:00:00 [facility] TDAP 2022-02-13 Completed University of 00:00:00 [facility] TDAP 2022-02-13 Completed University of 00:00:00 [facility] TDAP 2022-02-13 Completed University of 00:00:00 [facility] TDAP 2022-02-13 Completed University of 00:00:00 [facility] TDAP 2022-02-13 Completed University of 00:00:00 [facility] TDAP 2022-02-13 Completed University of 00:00:00 [facility] TDAP 2022-02-13 Completed University of 00:00:00 [facility] TDAP 2022-02-13 Completed University of 00:00:00 [facility] TDAP 2022-02-13 Completed University of 00:00:00 [facility] TDAP 2022-02-13 Completed University of 00:00:00 [facility] TDAP 2022-02-13 Completed University of 00:00:00 [facility] TDAP 2022-02-13 Completed University of 00:00:00 [facility] TDAP 2022-02-13 Completed University of 00:00:00 [facility] TDAP 2022-02-13 Completed University of 00:00:00 [facility] TDAP 2022-02-13 Completed University of 00:00:00 [facility] TDAP 2022-02-13 Completed University of 00:00:00 [facility] TDAP 2022-02-13 Completed University of 00:00:00 [facility] TDAP 2022-02-13 Completed University of 00:00:00 [facility] TDAP 2022-02-13 Completed University of 00:00:00 [facility] TDAP 2022-02-13 Completed University of 00:00:00 [facility] TDAP 2022-02-13 Completed University of 00:00:00 [facility] TDAP 2022-02-13 Completed University of 00:00:00 [facility] TDAP 2022-02-13 Completed University of 00:00:00 [facility] TDAP 2022-02-13 Completed University of 00:00:00 [facility] TDAP 2022-02-13 Completed University of 00:00:00 [facility] TDAP 2022-02-13 Completed University of 00:00:00 [facility] TDAP 2022-02-13 Completed University of 00:00:00 [facility] TDAP 2022-02-13 Completed University of 00:00:00 [facility] TDAP 2022-02-13 Completed University of 00:00:00 [facility] TDAP 2022-02-13 Completed University of 00:00:00 [facility] TDAP 2022-02-13 Completed University of 00:00:00 [facility] TDAP 2022-02-13 Completed University of 00:00:00 [facility] TDAP 2022-02-13 Completed University of 00:00:00 [facility] TDAP 2022-02-13 Completed University of 00:00:00 [facility] Branch TDAP 2022-02-13 Completed University of 00:00:00 [facility] TDAP 2022-02-13 Completed University of 00:00:00 [facility] TDAP 2022-02-13 Completed University of 00:00:00 [place] [facility] TDAP 2022-02-13 Completed University of 00:00:00 [facility] TDAP 2022-02-13 Completed University of 00:00:00 [facility] TDAP 2022-02-13 Completed University of 00:00:00 [place] [facility] TDAP 2022-02-13 Completed University of 00:00:00 [facility] TDAP 2022-02-13 Completed University of 00:00:00 [facility] TDAP 2022-02-13 Completed University of 00:00:00 [facility] TDAP 2022-02-13 Completed University of 00:00:00 [facility] TDAP 2022-02-13 Completed University of 00:00:00 [facility] TDAP 2022-02-13 Completed University of 00:00:00 [facility] TDAP 2022-02-13 Completed University of 00:00:00 [facility] TDAP 2022-02-13 Completed University of 00:00:00 [facility] TDAP 2022-02-13 Completed University of 00:00:00 [facility] TDAP 2022-02-13 Completed University of 00:00:00 [facility] TDAP 2022-02-13 Completed University of 00:00:00 [facility] TDAP 2022-02-13 Completed University of 00:00:00 [facility] TDAP 2022-02-13 Completed University of 00:00:00 [facility] TDAP 2022-02-13 Completed University of 00:00:00 [facility] TDAP 2022-02-13 Completed University of 00:00:00 [facility] TDAP 2022-02-13 Completed University of 00:00:00 [facility] TDAP 2022-02-13 Completed University of 00:00:00 [facility] TDAP 2022-02-13 Completed University of 00:00:00 [facility] TDAP 2022-02-13 Completed University of 00:00:00 [facility] TDAP 2022-02-13 Completed University of 00:00:00 [facility] TDAP 2022-02-13 Completed University of 00:00:00 [facility] TDAP 2022-02-13 Completed University of 00:00:00 [facility] TDAP 2022-02-13 Completed University of 00:00:00 [place] [facility] TDAP 2022-02-13 Completed University of 00:00:00 [facility] TDAP 2022-02-13 Completed University of 00:00:00 [facility] TDAP 2022-02-13 Completed University of 00:00:00 [facility] TDAP 2022-02-13 Completed University of 00:00:00 [facility] TDAP 2022-02-13 Completed University of 00:00:00 [facility] TDAP 2022-02-13 Completed University of 00:00:00 [facility] TDAP 2022-02-13 Completed University of 00:00:00 [facility] TDAP 2022-02-13 Completed University of 00:00:00 [facility] TDAP 2022-02-13 Completed University of 00:00:00 [facility] TDAP 2022-02-13 Completed University of 00:00:00 [facility] TDAP 2022-02-13 Completed University of 00:00:00 [facility] TDAP 2022-02-13 Completed University of 00:00:00 [facility] TDAP 2022-02-13 Completed University of 00:00:00 [facility] TDAP 2022-02-13 Completed University of 00:00:00 [facility] TDAP 2022-02-13 Completed University of 00:00:00 [facility] TDAP 2022-02-13 Completed University of 00:00:00 [facility] TDAP 2022-02-13 Completed University of 00:00:00 [facility] TDAP 2022-02-13 Completed University of 00:00:00 [facility] TDAP 2022-02-13 Completed University of 00:00:00 [facility] TDAP 2022-02-13 Completed University of 00:00:00 [facility] TDAP 2022-02-13 Completed University of 00:00:00 [facility] TDAP 2022-02-13 Completed University of 00:00:00 [facility] TDAP 2022-02-13 Completed University of 00:00:00 [facility] TDAP 2022-02-13 Completed University of 00:00:00 [facility] TDAP 2022-02-13 Completed University of 00:00:00 [facility] TDAP 2022-02-13 Completed University of 00:00:00 [facility] TDAP 2022-02-13 Completed University of 00:00:00 [facility] TDAP 2022-02-13 Completed University of 00:00:00 [facility] TDAP 2022-02-13 Completed University of 00:00:00 [facility] TDAP 2022-02-13 Completed University of 00:00:00 [facility] TDAP 2022-02-13 Completed University of 00:00:00 [facility] TDAP 2022-02-13 Completed University of 00:00:00 [facility] TDAP 2022-02-13 Completed University of 00:00:00 [facility] TDAP 2022-02-13 Completed University of 00:00:00 [facility] TDAP 2022-02-13 Completed University of 00:00:00 [facility] TDAP 2022-02-13 Completed University of 00:00:00 [facility] TDAP 2022-02-13 Completed University of 00:00:00 [facility] TDAP 2022-02-13 Completed University of 00:00:00 [facility] TDAP 2022-02-13 Completed University of 00:00:00 [facility] TDAP 2022-02-13 Completed University of 00:00:00 [facility] TDAP 2022-02-13 Completed University of 00:00:00 [facility] TDAP 2022-02-13 Completed University of 00:00:00 [facility] TDAP 2022-02-13 Completed University of 00:00:00 [facility] TDAP 2022-02-13 Completed University of 00:00:00 [facility] TDAP 2022-02-13 Completed University of 00:00:00 [facility] TDAP 2022-02-13 Completed University of 00:00:00 [facility] SARS-COV-2 COVID-19 2021-08-02 Completed Unive rsity of PFIZER VACCINE 00:00:00 [facility] SARS-COV-2 COVID-19 2021-08-02 Completed Unive rsity of PFIZER VACCINE 00:00:00 [place] [facility] SARS-COV-2 COVID-19 2021-08-02 Completed Unive rsity of PFIZER VACCINE 00:00:00 [facility] SARS-COV-2 COVID-19 2021-08-02 Completed Unive rsity of PFIZER VACCINE 00:00:00 [facility] SARS-COV-2 COVID-19 2021-08-02 Completed Unive rsity of PFIZER VACCINE 00:00:00 [facility] SARS-COV-2 COVID-19 2021-08-02 Completed Unive rsity of PFIZER VACCINE 00:00:00 [facility] SARS-COV-2 COVID-19 2021-08-02 Completed Unive rsity of PFIZER VACCINE 00:00:00 [facility] SARS-COV-2 COVID-19 2021-08-02 Completed Unive rsity of PFIZER VACCINE 00:00:00 [facility] SARS-COV-2 COVID-19 2021-08-02 Completed Unive rsity of PFIZER VACCINE 00:00:00 [facility] SARS-COV-2 COVID-19 2021-08-02 Completed Unive rsity of PFIZER VACCINE 00:00:00 [facility] SARS-COV-2 COVID-19 2021-08-02 Completed Unive rsity of PFIZER VACCINE 00:00:00 [facility] SARS-COV-2 COVID-19 2021-08-02 Completed Unive rsity of PFIZER VACCINE 00:00:00 [facility] SARS-COV-2 COVID-19 2021-08-02 Completed Unive rsity of PFIZER VACCINE 00:00:00 [facility] SARS-COV-2 COVID-19 2021-08-02 Completed [facility] PFIZER VACCINE 00:00:00 [facility] SARS-COV-2 COVID-19 2021-08-02 Completed [facility] PFIZER VACCINE 00:00:00 [facility] SARS-COV-2 COVID-19 2021-08-02 Completed [facility] PFIZER VACCINE 00:00:00 [facility] SARS-COV-2 COVID-19 2021-08-02 Completed [facility] PFIZER VACCINE 00:00:00 [facility] SARS-COV-2 COVID-19 2021-08-02 Completed [facility] PFIZER VACCINE 00:00:00 [facility] SARS-COV-2 COVID-19 2021-08-02 Completed [facility] PFIZER VACCINE 00:00:00 [facility] SARS-COV-2 COVID-19 2021-08-02 Completed [facility] PFIZER VACCINE 00:00:00 [facility] SARS-COV-2 COVID-19 2021-08-02 Completed [facility] PFIZER VACCINE 00:00:00 [facility] SARS-COV-2 COVID-19 2021-08-02 Completed [facility] PFIZER VACCINE 00:00:00 [facility] SARS-COV-2 COVID-19 2021-08-02 Completed [facility] PFIZER VACCINE 00:00:00 [facility] SARS-COV-2 COVID-19 2021-08-02 Completed [facility] PFIZER VACCINE 00:00:00 [facility] SARS-COV-2 COVID-19 2021-08-02 Completed [facility] PFIZER VACCINE 00:00:00 [facility] SARS-COV-2 COVID-19 2021-08-02 Completed [facility] PFIZER VACCINE 00:00:00 [facility] SARS-COV-2 COVID-19 2021-08-02 Completed [facility] PFIZER VACCINE 00:00:00 [facility] SARS-COV-2 COVID-19 2021-08-02 Completed [facility] PFIZER VACCINE 00:00:00 [facility] SARS-COV-2 COVID-19 2021-08-02 Completed [facility] PFIZER VACCINE 00:00:00 [facility] SARS-COV-2 COVID-19 2021-08-02 Completed [facility] PFIZER VACCINE 00:00:00 [facility] SARS-COV-2 COVID-19 2021-08-02 Completed [facility] PFIZER VACCINE 00:00:00 [facility] SARS-COV-2 COVID-19 2021-08-02 Completed [facility] PFIZER VACCINE 00:00:00 [facility] SARS-COV-2 COVID-19 2021-08-02 Completed [facility] PFIZER VACCINE 00:00:00 [facility] SARS-COV-2 COVID-19 2021-08-02 Completed [facility] PFIZER VACCINE 00:00:00 [facility] SARS-COV-2 COVID-19 2021-08-02 Completed [facility] PFIZER VACCINE 00:00:00 [facility] SARS-COV-2 COVID-19 2021-08-02 Completed [facility] PFIZER VACCINE 00:00:00 [facility] SARS-COV-2 COVID-19 2021-08-02 Completed [facility] PFIZER VACCINE 00:00:00 [facility] SARS-COV-2 COVID-19 2021-08-02 Completed [facility] PFIZER VACCINE 00:00:00 [facility] SARS-COV-2 COVID-19 2021-08-02 Completed [facility] PFIZER VACCINE 00:00:00 [facility] SARS-COV-2 COVID-19 2021-08-02 Completed [facility] PFIZER VACCINE 00:00:00 [facility] SARS-COV-2 COVID-19 2021-08-02 Completed [facility] PFIZER VACCINE 00:00:00 [facility] SARS-COV-2 COVID-19 2021-08-02 Completed [facility] PFIZER VACCINE 00:00:00 [facility] SARS-COV-2 COVID-19 2021-08-02 Completed [facility] PFIZER VACCINE 00:00:00 [facility] SARS-COV-2 COVID-19 2021-08-02 Completed [facility] PFIZER VACCINE 00:00:00 [facility] SARS-COV-2 COVID-19 2021-08-02 Completed [facility] PFIZER VACCINE 00:00:00 [facility] SARS-COV-2 COVID-19 2021-08-02 Completed [facility] PFIZER VACCINE 00:00:00 [facility] SARS-COV-2 COVID-19 2021-08-02 Completed [facility] PFIZER VACCINE 00:00:00 [facility] SARS-COV-2 COVID-19 2021-08-02 Completed [facility] PFIZER VACCINE 00:00:00 [facility] SARS-COV-2 COVID-19 2021-08-02 Completed [facility] PFIZER VACCINE 00:00:00 [facility] SARS-COV-2 COVID-19 2021-08-02 Completed [facility] PFIZER VACCINE 00:00:00 [facility] SARS-COV-2 COVID-19 2021-08-02 Completed [facility] PFIZER VACCINE 00:00:00 [facility] SARS-COV-2 COVID-19 2021-08-02 Completed [facility] PFIZER VACCINE 00:00:00 [facility] SARS-COV-2 COVID-19 2021-08-02 Completed [facility] PFIZER VACCINE 00:00:00 [facility] SARS-COV-2 COVID-19 2021-08-02 Completed [facility] PFIZER VACCINE 00:00:00 [facility] SARS-COV-2 COVID-19 2021-08-02 Completed [facility] PFIZER VACCINE 00:00:00 [facility] SARS-COV-2 COVID-19 2021-08-02 Completed [facility] PFIZER VACCINE 00:00:00 [facility] SARS-COV-2 COVID-19 2021-08-02 Completed [facility] PFIZER VACCINE 00:00:00 [facility] SARS-COV-2 COVID-19 2021-08-02 Completed [facility] PFIZER VACCINE 00:00:00 [facility] SARS-COV-2 COVID-19 2021-08-02 Completed [facility] PFIZER VACCINE 00:00:00 [facility] SARS-COV-2 COVID-19 2021-08-02 Completed [facility] PFIZER VACCINE 00:00:00 [facility] SARS-COV-2 COVID-19 2021-08-02 Completed [facility] PFIZER VACCINE 00:00:00 [facility] SARS-COV-2 COVID-19 2021-08-02 Completed [facility] PFIZER VACCINE 00:00:00 [facility] SARS-COV-2 COVID-19 2021-08-02 Completed [facility] PFIZER VACCINE 00:00:00 [facility] SARS-COV-2 COVID-19 2021-08-02 Completed [facility] PFIZER VACCINE 00:00:00 [facility] SARS-COV-2 COVID-19 2021-08-02 Completed [facility] PFIZER VACCINE 00:00:00 [facility] SARS-COV-2 COVID-19 2021-08-02 Completed [facility] PFIZER VACCINE 00:00:00 [facility] SARS-COV-2 COVID-19 2021-08-02 Completed [facility] PFIZER VACCINE 00:00:00 [facility] SARS-COV-2 COVID-19 2021-08-02 Completed [facility] PFIZER VACCINE 00:00:00 [facility] SARS-COV-2 COVID-19 2021-08-02 Completed [facility] PFIZER VACCINE 00:00:00 [facility] SARS-COV-2 COVID-19 2021-08-02 Completed [facility] PFIZER VACCINE 00:00:00 [facility] SARS-COV-2 COVID-19 2021-08-02 Completed [facility] PFIZER VACCINE 00:00:00 [facility] SARS-COV-2 COVID-19 2021-08-02 Completed [facility] PFIZER VACCINE 00:00:00 [facility] SARS-COV-2 COVID-19 2021-08-02 Completed [facility] PFIZER VACCINE 00:00:00 [facility] SARS-COV-2 COVID-19 2021-08-02 Completed [facility] PFIZER VACCINE 00:00:00 [facility] SARS-COV-2 COVID-19 2021-08-02 Completed [facility] PFIZER VACCINE 00:00:00 [facility] SARS-COV-2 COVID-19 2021-08-02 Completed [facility] PFIZER VACCINE 00:00:00 [facility] SARS-COV-2 COVID-19 2021-08-02 Completed [facility] PFIZER VACCINE 00:00:00 [facility] SARS-COV-2 COVID-19 2021-08-02 Completed [facility] PFIZER VACCINE 00:00:00 [facility] SARS-COV-2 COVID-19 2021-08-02 Completed [facility] PFIZER VACCINE 00:00:00 [facility] SARS-COV-2 COVID-19 2021-08-02 Completed [facility] PFIZER VACCINE 00:00:00 [facility] SARS-COV-2 COVID-19 2021-08-02 Completed [facility] PFIZER VACCINE 00:00:00 [facility] SARS-COV-2 COVID-19 2021-08-02 Completed [facility] PFIZER VACCINE 00:00:00 [facility] SARS-COV-2 COVID-19 2021-08-02 Completed [facility] PFIZER VACCINE 00:00:00 [facility] SARS-COV-2 COVID-19 2021-08-02 Completed [facility] PFIZER VACCINE 00:00:00 [facility] SARS-COV-2 COVID-19 2021-08-02 Completed [facility] PFIZER VACCINE 00:00:00 [facility] SARS-COV-2 COVID-19 2021-08-02 Completed [facility] PFIZER VACCINE 00:00:00 [facility] SARS-COV-2 COVID-19 2021-08-02 Completed [facility] PFIZER VACCINE 00:00:00 [facility] SARS-COV-2 COVID-19 2021-08-02 Completed [facility] PFIZER VACCINE 00:00:00 [facility] SARS-COV-2 COVID-19 2021-08-02 Completed [facility] PFIZER VACCINE 00:00:00 [facility] SARS-COV-2 COVID-19 2021-08-02 Completed [facility] PFIZER VACCINE 00:00:00 [facility] SARS-COV-2 COVID-19 2021-08-02 Completed [facility] PFIZER VACCINE 00:00:00 [facility] SARS-COV-2 COVID-19 2021-08-02 Completed [facility] PFIZER VACCINE 00:00:00 [facility] SARS-COV-2 COVID-19 2021-08-02 Completed [facility] PFIZER VACCINE 00:00:00 [facility] SARS-COV-2 COVID-19 2021-08-02 Completed [facility] PFIZER VACCINE 00:00:00 [facility] SARS-COV-2 COVID-19 2021-08-02 Completed [facility] PFIZER VACCINE 00:00:00 [facility] SARS-COV-2 COVID-19 2021-08-02 Completed [facility] PFIZER VACCINE 00:00:00 [facility] SARS-COV-2 COVID-19 2021-08-02 Completed [facility] PFIZER VACCINE 00:00:00 [facility] SARS-COV-2 COVID-19 2021-08-02 Completed [facility] PFIZER VACCINE 00:00:00 [facility] SARS-COV-2 COVID-19 2021-08-02 Completed [facility] PFIZER VACCINE 00:00:00 [facility] SARS-COV-2 COVID-19 2021-08-02 Completed [facility] PFIZER VACCINE 00:00:00 [facility] SARS-COV-2 COVID-19 2021-08-02 Completed [facility] PFIZER VACCINE 00:00:00 [facility] SARS-COV-2 COVID-19 2021-08-02 Completed [facility] PFIZER VACCINE 00:00:00 [facility] SARS-COV-2 COVID-19 2021-08-02 Completed [facility] PFIZER VACCINE 00:00:00 [facility] SARS-COV-2 COVID-19 2021-08-02 Completed [facility] PFIZER VACCINE 00:00:00 [facility] SARS-COV-2 COVID-19 2021-08-02 Completed [facility] PFIZER VACCINE 00:00:00 [facility] SARS-COV-2 COVID-19 2021-08-02 Completed [facility] PFIZER VACCINE 00:00:00 [facility] SARS-COV-2 COVID-19 2021-08-02 Completed [facility] PFIZER VACCINE 00:00:00 [facility] SARS-COV-2 COVID-19 2021-08-02 Completed [facility] PFIZER VACCINE 00:00:00 [facility] SARS-COV-2 COVID-19 2021-08-02 Completed [facility] PFIZER VACCINE 00:00:00 [facility] SARS-COV-2 COVID-19 2021-08-02 Completed [facility] PFIZER VACCINE 00:00:00 [facility] SARS-COV-2 COVID-19 2021-08-02 Completed [facility] PFIZER VACCINE 00:00:00 [facility] Influenza Virus 2021-07-28 Completed [facility] 00:00[facility] Influenza Virus 2021-07-28 Completed [facility] Vaccine,quad 00:00:00 [facility] 65+ Influenza Virus 2021-07-28 Completed [facility] Vaccine,quad 00:00:00 [facility] 65+ Influenza Virus 2021-07-28 Completed [facility] Vaccine,quad 00:00:00 [facility] 65+ Influenza Virus 2021-07-28 Completed [facility] Vaccine,quad 00:00:00 [facility] 65+ Influenza Virus 2021-07-28 Completed [facility] Vaccine,quad 00:00:00 [facility] 65+ Influenza Virus 2021-07-28 Completed [facility] Vaccine,quad 00:00:00 [facility] 65+ Influenza Virus 2021-07-28 Completed [facility] Vaccine,quad 00:00:00 [facility] 65+ Influenza Virus 2021-07-28 Completed [facility] Vaccine,quad 00:00:00 [facility] 65+ Influenza Virus 2021-07-28 Completed [facility] Vaccine,quad 00:00:00 [facility] 65+ Influenza Virus 2021-07-28 Completed [facility] Vaccine,quad 00:00:00 [facility] 65+ Influenza Virus 2021-07-28 Completed [facility] Vaccine,quad 00:00:00 [facility] 65+ Influenza Virus 2021-07-28 Completed [facility] Vaccine,quad 00:00:00 [facility] 65+ Influenza Virus 2021-07-28 Completed [facility] Vaccine,quad 00:00:00 [facility] 65+ Influenza Virus 2021-07-28 Completed [facility] Vaccine,quad 00:00:00 [facility] 65+ Influenza Virus 2021-07-28 Completed [facility] Vaccine,quad 00:00:00 [facility] 65+ Influenza Virus 2021-07-28 Completed [facility] Vaccine,quad 00:00:00 [facility] 65+ Influenza Virus 2021-07-28 Completed [facility] Vaccine,quad 00:00:00 [facility] 65+ Influenza Virus 2021-07-28 Completed [facility] Vaccine,quad 00:00:00 [facility] 65+ Influenza Virus 2021-07-28 Completed [facility] Vaccine,quad 00:00:00 [facility] 65+ Influenza Virus 2021-07-28 Completed [facility] Vaccine,quad 00:00:00 [facility] 65+ Influenza Virus 2021-07-28 Completed [facility] Vaccine,quad 00:00:00 [facility] 65+ Influenza Virus 2021-07-28 Completed [facility] Vaccine,quad 00:00:00 [facility] 65+ Influenza Virus 2021-07-28 Completed [facility] Vaccine,quad 00:00:00 [facility] 65+ Influenza Virus 2021-07-28 Completed [facility] Vaccine,quad 00:00:00 [facility] 65+ Influenza Virus 2021-07-28 Completed [facility] Vaccine,quad 00:00:00 [facility] 65+ Influenza Virus 2021-07-28 Completed [facility] Vaccine,quad 00:00:00 [facility] 65+ Influenza Virus 2021-07-28 Completed [facility] Vaccine,quad 00:00:00 [facility] 65+ Influenza Virus 2021-07-28 Completed [facility] Vaccine,quad 00:00:00 [facility] 65+ Influenza Virus 2021-07-28 Completed [facility] Vaccine,quad 00:00:00 [facility] 65+ Influenza Virus 2021-07-28 Completed [facility] Vaccine,quad 00:00:00 [facility] 65+ Influenza Virus 2021-07-28 Completed [facility] Vaccine,quad 00:00:00 [facility] 65+ Influenza Virus 2021-07-28 Completed [facility] Vaccine,quad 00:00:00 [facility] 65+ Influenza Virus 2021-07-28 Completed [facility] Vaccine,quad 00:00:00 [facility] 65+ Influenza Virus 2021-07-28 Completed [facility] Vaccine,quad 00:00:00 [facility] 65+ Influenza Virus 2021-07-28 Completed [facility] Vaccine,quad 00:00:00 [facility] 65+ Influenza Virus 2021-07-28 Completed [facility] Vaccine,quad 00:00:00 [facility] 65+ Influenza Virus 2021-07-28 Completed [facility] Vaccine,quad 00:00:00 [facility] 65+ Influenza Virus 2021-07-28 Completed [facility] Vaccine,quad 00:00:00 [facility] 65+ Influenza Virus 2021-07-28 Completed [facility] Vaccine,quad 00:00:00 [facility] 65+ Influenza Virus 2021-07-28 Completed [facility] Vaccine,quad 00:00:00 [facility] 65+ Influenza Virus 2021-07-28 Completed [facility] Vaccine,quad 00:00:00 [facility] 65+ Influenza Virus 2021-07-28 Completed [facility] Vaccine,quad 00:00:00 [facility] 65+ Influenza Virus 2021-07-28 Completed [facility] Vaccine,quad 00:00:00 [facility] 65+ Influenza Virus 2021-07-28 Completed [facility] Vaccine,quad 00:00:00 [facility] 65+ Influenza Virus 2021-07-28 Completed [facility] Vaccine,quad 00:00:00 [facility] 65+ Influenza Virus 2021-07-28 Completed [facility] Vaccine,quad 00:00:00 [facility] 65+ Influenza Virus 2021-07-28 Completed [facility] Vaccine,quad 00:00:00 [facility] 65+ Influenza Virus 2021-07-28 Completed [facility] Vaccine,quad 00:00:00 [facility] 65+ Influenza Virus 2021-07-28 Completed [facility] Vaccine,quad 00:00:00 [facility] 65+ Influenza Virus 2021-07-28 Completed [facility] Vaccine,quad 00:00:00 [facility] 65+ Influenza Virus 2021-07-28 Completed [facility] Vaccine,quad 00:00:00 [facility] 65+ Influenza Virus 2021-07-28 Completed [facility] Vaccine,quad 00:00:00 [facility] 65+ Influenza Virus 2021-07-28 Completed [facility] Vaccine,quad 00:00:00 [facility] 65+ Influenza Virus 2021-07-28 Completed [facility] Vaccine,quad 00:00:00 [facility] 65+ Influenza Virus 2021-07-28 Completed [facility] Vaccine,quad 00:00:00 [facility] 65+ Influenza Virus 2021-07-28 Completed [facility] Vaccine,quad 00:00:00 [facility] 65+ Influenza Virus 2021-07-28 Completed [facility] Vaccine,quad 00:00:00 [facility] 65+ Influenza Virus 2021-07-28 Completed [facility] Vaccine,quad 00:00:00 [facility] 65+ Influenza Virus 2021-07-28 Completed [facility] Vaccine,quad 00:00:00 [facility] 65+ Influenza Virus 2021-07-28 Completed [facility] Vaccine,quad 00:00:00 [facility] 65+ Influenza Virus 2021-07-28 Completed [facility] Vaccine,quad 00:00:00 [facility] 65+ Influenza Virus 2021-07-28 Completed [facility] Vaccine,quad 00:00:00 [facility] 65+ Influenza Virus 2021-07-28 Completed [facility] Vaccine,quad 00:00:00 [facility] 65+ Influenza Virus 2021-07-28 Completed [facility] Vaccine,quad 00:00:00 [facility] 65+ Influenza Virus 2021-07-28 Completed [facility] Vaccine,quad 00:00:00 [facility] 65+ Influenza Virus 2021-07-28 Completed [facility] Vaccine,quad 00:00:00 [facility] 65+ Influenza Virus 2021-07-28 Completed [facility] Vaccine,quad 00:00:00 [facility] 65+ Influenza Virus 2021-07-28 Completed [facility] Vaccine,quad 00:00:00 [facility] 65+ Influenza Virus 2021-07-28 Completed [facility] Vaccine,quad 00:00:00 [facility] 65+ Influenza Virus 2021-07-28 Completed [facility] Vaccine,quad 00:00:00 [facility] 65+ Influenza Virus 2021-07-28 Completed [facility] Vaccine,quad 00:00:00 [facility] 65+ Influenza Virus 2021-07-28 Completed [facility] Vaccine,quad 00:00:00 [facility] 65+ Influenza Virus 2021-07-28 Completed [facility] Vaccine,quad 00:00:00 [facility] 65+ Influenza Virus 2021-07-28 Completed [facility] Vaccine,quad 00:00:00 [facility] 65+ Influenza Virus 2021-07-28 Completed [facility] Vaccine,quad 00:00:00 [facility] 65+ Influenza Virus 2021-07-28 Completed [facility] Vaccine,quad 00:00:00 [facility] 65+ Influenza Virus 2021-07-28 Completed [facility] Vaccine,quad 00:00:00 [facility] 65+ Influenza Virus 2021-07-28 Completed [facility] Vaccine,quad 00:00:00 [facility] 65+ Influenza Virus 2021-07-28 Completed [facility] Vaccine,quad 00:00:00 [facility] 65+ Influenza Virus 2021-07-28 Completed [facility] Vaccine,quad 00:00:00 [facility] 65+ Influenza Virus 2021-07-28 Completed [facility] Vaccine,quad 00:00:00 [facility] 65+ Influenza Virus 2021-07-28 Completed [facility] Vaccine,quad 00:00:00 [facility] 65+ Influenza Virus 2021-07-28 Completed [facility] Vaccine,quad 00:00:00 [facility] 65+ Influenza Virus 2021-07-28 Completed [facility] Vaccine,quad 00:00:00 [facility] 65+ Influenza Virus 2021-07-28 Completed [facility] Vaccine,quad 00:00:00 [facility] 65+ Influenza Virus 2021-07-28 Completed [facility] Vaccine,quad 00:00:00 [facility] 65+ Influenza Virus 2021-07-28 Completed [facility] Vaccine,quad 00:00:00 [facility] 65+ Influenza Virus 2021-07-28 Completed [facility] Vaccine,quad 00:00:00 [facility] 65+ Influenza Virus 2021-07-28 Completed [facility] Vaccine,quad 00:00:00 [facility] 65+ Influenza Virus 2021-07-28 Completed [facility] Vaccine,quad 00:00:00 [facility] 65+ Influenza Virus 2021-07-28 Completed [facility] Vaccine,quad 00:00:00 [facility] 65+ Influenza Virus 2021-07-28 Completed [facility] Vaccine,quad 00:00:00 [facility] 65+ Influenza Virus 2021-07-28 Completed [facility] Vaccine,quad 00:00:00 [facility]+ Influenza Virus 2021-07-28 Completed [facility] Influenza Virus 2021-07-28 Completed [facility]+ Influenza Virus 2021-07-28 Completed [facility] 00:00[facility]00 [facility] 65+ Influenza Virus 2021-07-28 Completed [facility] 00:00[facility]00 [facility] 65+ Influenza Virus 2021-07-28 Completed [facility] 00:00[facility]00 [facility]+ Influenza Virus 2021-07-28 Completed [facility] 00:00[facility]00 [facility] 65+ Influenza Virus 2021-07-28 Completed [facility] 00:00[facility]00 [facility] 65+ Influenza Virus 2021-07-28 Completed [facility] 00:00[facility]00 [facility] 65+ Influenza Virus 2021-07-28 Completed [facility] 00:00:00 [facility]+ Influenza Virus 2021-07-28 Completed [facility] 00:00[facility]00 [facility]+ Influenza Virus 2021-07-28 Completed [facility] 00:00:00 [facility] 65+ Influenza Virus 2021-07-28 Completed [facility] 00:00:00 [facility]+ Influenza Virus 2021-07-28 Completed [facility] 00:00:00 [facility] 65+ Influenza Virus 2021-07-28 Completed [facility] 00:00:00 [facility]+ Influenza Virus 2021-07-28 Completed [facility] 00:00:00 [facility] 65+ Influenza Virus 2021-07-28 Completed [facility] 00:00:00 [facility] [place] 65+ Influenza Virus 2021-07-28 Completed [facility] 00:[facility]00 [place] [facility] [place] 65+ SARS-COV-2 COVID-19 2020-09-16 Completed [facility] PFIZER VACCINE 00:00:00 [facility] SARS-COV-2 COVID-19 2020-09-16 Completed [facility] PFIZER VACCINE 00:00:00 [facility] SARS-COV-2 COVID-19 2020-09-16 Completed [facility] PFIZER VACCINE 00:00:00 [facility] SARS-COV-2 COVID-19 2020-09-16 Completed [facility] PFIZER VACCINE 00:00:00 [facility] SARS-COV-2 COVID-19 2020-09-16 Completed [facility] PFIZER VACCINE 00:00:00 [facility] SARS-COV-2 COVID-19 2020-09-16 Completed [facility] PFIZER VACCINE 00:00:00 [facility] SARS-COV-2 COVID-19 2020-09-16 Completed [facility] PFIZER VACCINE 00:00:00 [facility] SARS-COV-2 COVID-19 2020-09-16 Completed [facility] PFIZER VACCINE 00:00:00 [facility] SARS-COV-2 COVID-19 2020-09-16 Completed [facility] PFIZER VACCINE 00:00:00 [facility] SARS-COV-2 COVID-19 2020-09-16 Completed [facility] PFIZER VACCINE 00:00:00 [facility] SARS-COV-2 COVID-19 2020-09-16 Completed [facility] PFIZER VACCINE 00:00:00 [facility] SARS-COV-2 COVID-19 2020-09-16 Completed [facility] PFIZER VACCINE 00:00:00 [facility] SARS-COV-2 COVID-19 2020-09-16 Completed [facility] PFIZER VACCINE 00:00:00 [facility] SARS-COV-2 COVID-19 2020-09-16 Completed [facility] PFIZER VACCINE 00:00:00 [facility] SARS-COV-2 COVID-19 2020-09-16 Completed [facility] PFIZER VACCINE 00:00:00 [facility] SARS-COV-2 COVID-19 2020-09-16 Completed [facility] PFIZER VACCINE 00:00:00 [facility] SARS-COV-2 COVID-19 2020-09-16 Completed [facility] PFIZER VACCINE 00:00:00 [facility] SARS-COV-2 COVID-19 2020-09-16 Completed [facility] PFIZER VACCINE 00:00:00 [facility] SARS-COV-2 COVID-19 2020-09-16 Completed [facility] PFIZER VACCINE 00:00:00 [facility] SARS-COV-2 COVID-19 2020-09-16 Completed [facility] PFIZER VACCINE 00:00:00 [facility] SARS-COV-2 COVID-19 2020-09-16 Completed [facility] PFIZER VACCINE 00:00:00 [facility] SARS-COV-2 COVID-19 2020-09-16 Completed [facility] PFIZER VACCINE 00:00:00 [facility] SARS-COV-2 COVID-19 2020-09-16 Completed [facility] PFIZER VACCINE 00:00:00 [facility] SARS-COV-2 COVID-19 2020-09-16 Completed [facility] PFIZER VACCINE 00:00:00 [facility] SARS-COV-2 COVID-19 2020-09-16 Completed [facility] PFIZER VACCINE 00:00:00 [facility] SARS-COV-2 COVID-19 2020-09-16 Completed [facility] PFIZER VACCINE 00:00:00 [facility] SARS-COV-2 COVID-19 2020-09-16 Completed [facility] PFIZER VACCINE 00:00:00 [facility] SARS-COV-2 COVID-19 2020-09-16 Completed [facility] PFIZER VACCINE 00:00:00 [facility] SARS-COV-2 COVID-19 2020-09-16 Completed [facility] PFIZER VACCINE 00:00:00 [facility] SARS-COV-2 COVID-19 2020-09-16 Completed [facility] PFIZER VACCINE 00:00:00 [facility] SARS-COV-2 COVID-19 2020-09-16 Completed [facility] PFIZER VACCINE 00:00:00 [facility] SARS-COV-2 COVID-19 2020-09-16 Completed [facility] PFIZER VACCINE 00:00:00 [facility] SARS-COV-2 COVID-19 2020-09-16 Completed [facility] PFIZER VACCINE 00:00:00 [facility] SARS-COV-2 COVID-19 2020-09-16 Completed [facility] PFIZER VACCINE 00:00:00 [facility] SARS-COV-2 COVID-19 2020-09-16 Completed [facility] PFIZER VACCINE 00:00:00 [facility] SARS-COV-2 COVID-19 2020-09-16 Completed [facility] PFIZER VACCINE 00:00:00 [facility] SARS-COV-2 COVID-19 2020-09-16 Completed [facility] PFIZER VACCINE 00:00:00 [facility] SARS-COV-2 COVID-19 2020-09-16 Completed [facility] PFIZER VACCINE 00:00:00 [facility] SARS-COV-2 COVID-19 2020-09-16 Completed [facility] PFIZER VACCINE 00:00:00 [facility] SARS-COV-2 COVID-19 2020-09-16 Completed [facility] PFIZER VACCINE 00:00:00 [facility] SARS-COV-2 COVID-19 2020-09-16 Completed [facility] PFIZER VACCINE 00:00:00 [facility] SARS-COV-2 COVID-19 2020-09-16 Completed [facility] PFIZER VACCINE 00:00:00 [facility] SARS-COV-2 COVID-19 2020-09-16 Completed [facility] PFIZER VACCINE 00:00:00 [facility] SARS-COV-2 COVID-19 2020-09-16 Completed [facility] PFIZER VACCINE 00:00:00 [facility] SARS-COV-2 COVID-19 2020-09-16 Completed [facility] PFIZER VACCINE 00:00:00 [facility] SARS-COV-2 COVID-19 2020-09-16 Completed [facility] PFIZER VACCINE 00:00:00 [facility] SARS-COV-2 COVID-19 2020-09-16 Completed [facility] PFIZER VACCINE 00:00:00 [facility] SARS-COV-2 COVID-19 2020-09-16 Completed [facility] PFIZER VACCINE 00:00:00 [facility] SARS-COV-2 COVID-19 2020-09-16 Completed [facility] PFIZER VACCINE 00:00:00 [facility] SARS-COV-2 COVID-19 2020-09-16 Completed [facility] PFIZER VACCINE 00:00:00 [facility] SARS-COV-2 COVID-19 2020-09-16 Completed [facility] PFIZER VACCINE 00:00:00 [facility] SARS-COV-2 COVID-19 2020-09-16 Completed [facility] PFIZER VACCINE 00:00:00 [facility] SARS-COV-2 COVID-19 2020-09-16 Completed [facility] PFIZER VACCINE 00:00:00 [facility] SARS-COV-2 COVID-19 2020-09-16 Completed [facility] PFIZER VACCINE 00:00:00 [facility] SARS-COV-2 COVID-19 2020-09-16 Completed [facility] PFIZER VACCINE 00:00:00 [facility] SARS-COV-2 COVID-19 2020-09-16 Completed [facility] PFIZER VACCINE 00:00:00 [facility] SARS-COV-2 COVID-19 2020-09-16 Completed [facility] PFIZER VACCINE 00:00:00 [facility] SARS-COV-2 COVID-19 2020-09-16 Completed [facility] PFIZER VACCINE 00:00:00 [facility] SARS-COV-2 COVID-19 2020-09-16 Completed [facility] PFIZER VACCINE 00:00:00 [facility] SARS-COV-2 COVID-19 2020-09-16 Completed [facility] PFIZER VACCINE 00:00:00 [facility] SARS-COV-2 COVID-19 2020-09-16 Completed [facility] PFIZER VACCINE 00:00:00 [facility] SARS-COV-2 COVID-19 2020-09-16 Completed [facility] PFIZER VACCINE 00:00:00 [facility] SARS-COV-2 COVID-19 2020-09-16 Completed [facility] PFIZER VACCINE 00:00:00 [facility] SARS-COV-2 COVID-19 2020-09-16 Completed [facility] PFIZER VACCINE 00:00:00 [facility] SARS-COV-2 COVID-19 2020-09-16 Completed [facility] PFIZER VACCINE 00:00:00 [facility] SARS-COV-2 COVID-19 2020-09-16 Completed [facility] PFIZER VACCINE 00:00:00 [facility] SARS-COV-2 COVID-19 2020-09-16 Completed [facility] PFIZER VACCINE 00:00:00 [facility] SARS-COV-2 COVID-19 2020-09-16 Completed [facility] PFIZER VACCINE 00:00:00 [facility] SARS-COV-2 COVID-19 2020-09-16 Completed [facility] PFIZER VACCINE 00:00:00 [facility] SARS-COV-2 COVID-19 2020-09-16 Completed [facility] PFIZER VACCINE 00:00:00 [facility] SARS-COV-2 COVID-19 2020-09-16 Completed [facility] PFIZER VACCINE 00:00:00 [facility] SARS-COV-2 COVID-19 2020-09-16 Completed [facility] PFIZER VACCINE 00:00:00 [facility] SARS-COV-2 COVID-19 2020-09-16 Completed [facility] PFIZER VACCINE 00:00:00 [facility] SARS-COV-2 COVID-19 2020-09-16 Completed [facility] PFIZER VACCINE 00:00:00 [facility] SARS-COV-2 COVID-19 2020-09-16 Completed [facility] PFIZER VACCINE 00:00:00 [facility] SARS-COV-2 COVID-19 2020-09-16 Completed [facility] PFIZER VACCINE 00:00:00 [facility] SARS-COV-2 COVID-19 2020-09-16 Completed [facility] PFIZER VACCINE 00:00:00 [facility] SARS-COV-2 COVID-19 2020-09-16 Completed [facility] PFIZER VACCINE 00:00:00 [facility] SARS-COV-2 COVID-19 2020-09-16 Completed [facility] PFIZER VACCINE 00:00:00 [facility] SARS-COV-2 COVID-19 2020-09-16 Completed [facility] PFIZER VACCINE 00:00:00 [facility] SARS-COV-2 COVID-19 2020-09-16 Completed [facility] PFIZER VACCINE 00:00:00 [facility] SARS-COV-2 COVID-19 2020-09-16 Completed [facility] PFIZER VACCINE 00:00:00 [facility] SARS-COV-2 COVID-19 2020-09-16 Completed [facility] PFIZER VACCINE 00:00:00 [facility] SARS-COV-2 COVID-19 2020-09-16 Completed [facility] PFIZER VACCINE 00:00:00 [facility] SARS-COV-2 COVID-19 2020-09-16 Completed [facility] PFIZER VACCINE 00:00:00 [facility] SARS-COV-2 COVID-19 2020-09-16 Completed [facility] PFIZER VACCINE 00:00:00 [facility] SARS-COV-2 COVID-19 2020-09-16 Completed [facility] PFIZER VACCINE 00:00:00 [facility] SARS-COV-2 COVID-19 2020-09-16 Completed [facility] PFIZER VACCINE 00:00:00 [facility] SARS-COV-2 COVID-19 2020-09-16 Completed [facility] PFIZER VACCINE 00:00:00 [facility] SARS-COV-2 COVID-19 2020-09-16 Completed [facility] PFIZER VACCINE 00:00:00 [facility] SARS-COV-2 COVID-19 2020-09-16 Completed [facility] PFIZER VACCINE 00:00:00 [facility] SARS-COV-2 COVID-19 2020-09-16 Completed [facility] PFIZER VACCINE 00:00:00 [facility] SARS-COV-2 COVID-19 2020-09-16 Completed [facility] PFIZER VACCINE 00:00:00 [facility] SARS-COV-2 COVID-19 2020-09-16 Completed [facility] PFIZER VACCINE 00:00:00 [facility] SARS-COV-2 COVID-19 2020-09-16 Completed [facility] PFIZER VACCINE 00:00:00 [facility] SARS-COV-2 COVID-19 2020-09-16 Completed [facility] PFIZER VACCINE 00:00:00 [facility] SARS-COV-2 COVID-19 2020-09-16 Completed [facility] PFIZER VACCINE 00:00:00 [facility] SARS-COV-2 COVID-19 2020-09-16 Completed [facility] PFIZER VACCINE 00:00:00 [facility] SARS-COV-2 COVID-19 2020-09-16 Completed [facility] PFIZER VACCINE 00:00:00 [facility] SARS-COV-2 COVID-19 2020-09-16 Completed [facility] PFIZER VACCINE 00:00:00 [facility] SARS-COV-2 COVID-19 2020-09-16 Completed [facility] PFIZER VACCINE 00:00:00 [facility] SARS-COV-2 COVID-19 2020-09-16 Completed [facility] PFIZER VACCINE 00:00:00 [facility] SARS-COV-2 COVID-19 2020-09-16 Completed [facility] PFIZER VACCINE 00:00:00 [facility] SARS-COV-2 COVID-19 2020-09-16 Completed [facility] PFIZER VACCINE 00:00:00 [facility] SARS-COV-2 COVID-19 2020-09-16 Completed [facility] PFIZER VACCINE 00:00:00 [facility] SARS-COV-2 COVID-19 2020-09-16 Completed [facility] PFIZER VACCINE 00:00:00 [facility] SARS-COV-2 COVID-19 2020-09-16 Completed [facility] PFIZER VACCINE 00:00:00 [facility] SARS-COV-2 COVID-19 2020-09-16 Completed [facility] PFIZER VACCINE 00:00:00 [facility] SARS-COV-2 COVID-19 2020-09-16 Completed [facility] PFIZER VACCINE 00:00:00 [facility] SARS-COV-2 COVID-19 2020-09-16 Completed [facility] PFIZER VACCINE 00:00:00 [facility] SARS-COV-2 COVID-19 2020-09-16 Completed [facility] PFIZER VACCINE 00:00:00 [facility] SARS-COV-2 COVID-19 2020-08-26 Completed [facility] PFIZER VACCINE 00:00:00 [facility] SARS-COV-2 COVID-19 2020-08-26 Completed [facility] PFIZER VACCINE 00:00:00 [facility] SARS-COV-2 COVID-19 2020-08-26 Completed [facility] PFIZER VACCINE 00:00:00 [facility] SARS-COV-2 COVID-19 2020-08-26 Completed [facility] PFIZER VACCINE 00:00:00 [facility] SARS-COV-2 COVID-19 2020-08-26 Completed [facility] PFIZER VACCINE 00:00:00 [facility] SARS-COV-2 COVID-19 2020-08-26 Completed [facility] PFIZER VACCINE 00:00:00 [facility] SARS-COV-2 COVID-19 2020-08-26 Completed [facility] PFIZER VACCINE 00:00:00 [facility] SARS-COV-2 COVID-19 2020-08-26 Completed [facility] PFIZER VACCINE 00:00:00 [facility] SARS-COV-2 COVID-19 2020-08-26 Completed [facility] PFIZER VACCINE 00:00:00 [facility] SARS-COV-2 COVID-19 2020-08-26 Completed [facility] PFIZER VACCINE 00:00:00 [facility] SARS-COV-2 COVID-19 2020-08-26 Completed [facility] PFIZER VACCINE 00:00:00 [facility] SARS-COV-2 COVID-19 2020-08-26 Completed [facility] PFIZER VACCINE 00:00:00 [facility] SARS-COV-2 COVID-19 2020-08-26 Completed [facility] PFIZER VACCINE 00:00:00 [facility] SARS-COV-2 COVID-19 2020-08-26 Completed [facility] PFIZER VACCINE 00:00:00 [facility] SARS-COV-2 COVID-19 2020-08-26 Completed [facility] PFIZER VACCINE 00:00:00 [facility] SARS-COV-2 COVID-19 2020-08-26 Completed [facility] PFIZER VACCINE 00:00:00 [facility] SARS-COV-2 COVID-19 2020-08-26 Completed [facility] PFIZER VACCINE 00:00:00 [facility] SARS-COV-2 COVID-19 2020-08-26 Completed [facility] PFIZER VACCINE 00:00:00 [facility] SARS-COV-2 COVID-19 2020-08-26 Completed [facility] PFIZER VACCINE 00:00:00 [facility] SARS-COV-2 COVID-19 2020-08-26 Completed [facility] PFIZER VACCINE 00:00:00 [facility] SARS-COV-2 COVID-19 2020-08-26 Completed [facility] PFIZER VACCINE 00:00:00 [facility] SARS-COV-2 COVID-19 2020-08-26 Completed [facility] PFIZER VACCINE 00:00:00 [facility] SARS-COV-2 COVID-19 2020-08-26 Completed [facility] PFIZER VACCINE 00:00:00 [facility] SARS-COV-2 COVID-19 2020-08-26 Completed [facility] PFIZER VACCINE 00:00:00 [facility] SARS-COV-2 COVID-19 2020-08-26 Completed [facility] PFIZER VACCINE 00:00:00 [facility] SARS-COV-2 COVID-19 2020-08-26 Completed [facility] PFIZER VACCINE 00:00:00 [facility] SARS-COV-2 COVID-19 2020-08-26 Completed [facility] PFIZER VACCINE 00:00:00 [facility] SARS-COV-2 COVID-19 2020-08-26 Completed [facility] PFIZER VACCINE 00:00:00 [facility] SARS-COV-2 COVID-19 2020-08-26 Completed [facility] PFIZER VACCINE 00:00:00 [facility] SARS-COV-2 COVID-19 2020-08-26 Completed [facility] PFIZER VACCINE 00:00:00 [facility] SARS-COV-2 COVID-19 2020-08-26 Completed [facility] PFIZER VACCINE 00:00:00 [facility] SARS-COV-2 COVID-19 2020-08-26 Completed [facility] PFIZER VACCINE 00:00:00 [facility] SARS-COV-2 COVID-19 2020-08-26 Completed [facility] PFIZER VACCINE 00:00:00 [facility] SARS-COV-2 COVID-19 2020-08-26 Completed [facility] PFIZER VACCINE 00:00:00 [facility] SARS-COV-2 COVID-19 2020-08-26 Completed [facility] PFIZER VACCINE 00:00:00 [facility] SARS-COV-2 COVID-19 2020-08-26 Completed [facility] PFIZER VACCINE 00:00:00 [facility] SARS-COV-2 COVID-19 2020-08-26 Completed [facility] PFIZER VACCINE 00:00:00 [facility] SARS-COV-2 COVID-19 2020-08-26 Completed [facility] PFIZER VACCINE 00:00:00 [facility] SARS-COV-2 COVID-19 2020-08-26 Completed [facility] PFIZER VACCINE 00:00:00 [facility] SARS-COV-2 COVID-19 2020-08-26 Completed [facility] PFIZER VACCINE 00:00:00 [facility] SARS-COV-2 COVID-19 2020-08-26 Completed [facility] PFIZER VACCINE 00:00:00 [facility] SARS-COV-2 COVID-19 2020-08-26 Completed [facility] PFIZER VACCINE 00:00:00 [facility] SARS-COV-2 COVID-19 2020-08-26 Completed [facility] PFIZER VACCINE 00:00:00 [facility] SARS-COV-2 COVID-19 2020-08-26 Completed [facility] PFIZER VACCINE 00:00:00 [facility] SARS-COV-2 COVID-19 2020-08-26 Completed [facility] PFIZER VACCINE 00:00:00 [facility] SARS-COV-2 COVID-19 2020-08-26 Completed [facility] PFIZER VACCINE 00:00:00 [facility] [facility] SARS-COV-2 COVID-19 2020-08-26 Completed [facility] PFIZER VACCINE 00:00:00 [facility] SARS-COV-2 COVID-19 2020-08-26 Completed [facility] PFIZER VACCINE 00:00:00 [facility] SARS-COV-2 COVID-19 2020-08-26 Completed [facility] PFIZER VACCINE 00:00:00 [facility] SARS-COV-2 COVID-19 2020-08-26 Completed [facility] PFIZER VACCINE 00:00:00 [facility] SARS-COV-2 COVID-19 2020-08-26 Completed [facility] PFIZER VACCINE 00:00:00 [facility] SARS-COV-2 COVID-19 2020-08-26 Completed [facility] PFIZER VACCINE 00:00:00 [facility] SARS-COV-2 COVID-19 2020-08-26 Completed [facility] PFIZER VACCINE 00:00:00 [facility] SARS-COV-2 COVID-19 2020-08-26 Completed [facility] PFIZER VACCINE 00:00:00 [facility] SARS-COV-2 COVID-19 2020-08-26 Completed [facility] PFIZER VACCINE 00:00:00 [facility] SARS-COV-2 COVID-19 2020-08-26 Completed [facility] PFIZER VACCINE 00:00:00 [facility] SARS-COV-2 COVID-19 2020-08-26 Completed [facility] PFIZER VACCINE 00:00:00 [facility] SARS-COV-2 COVID-19 2020-08-26 Completed [facility] PFIZER VACCINE 00:00:00 [facility] SARS-COV-2 COVID-19 2020-08-26 Completed [facility] PFIZER VACCINE 00:00:00 [facility] SARS-COV-2 COVID-19 2020-08-26 Completed [facility] PFIZER VACCINE 00:00:00 [facility] SARS-COV-2 COVID-19 2020-08-26 Completed [facility] PFIZER VACCINE 00:00:00 [facility] SARS-COV-2 COVID-19 2020-08-26 Completed [facility] PFIZER VACCINE 00:00:00 [facility] SARS-COV-2 COVID-19 2020-08-26 Completed [facility] PFIZER VACCINE 00:00:00 [facility] SARS-COV-2 COVID-19 2020-08-26 Completed [facility] PFIZER VACCINE 00:00:00 [facility] SARS-COV-2 COVID-19 2020-08-26 Completed [facility] PFIZER VACCINE 00:00:00 [facility] SARS-COV-2 COVID-19 2020-08-26 Completed [facility] PFIZER VACCINE 00:00:00 [facility] SARS-COV-2 COVID-19 2020-08-26 Completed [facility] PFIZER VACCINE 00:00:00 [facility] SARS-COV-2 COVID-19 2020-08-26 Completed [facility] PFIZER VACCINE 00:00:00 [facility] SARS-COV-2 COVID-19 2020-08-26 Completed [facility] PFIZER VACCINE 00:00:00 [facility] SARS-COV-2 COVID-19 2020-08-26 Completed [facility] PFIZER VACCINE 00:00:00 [facility] SARS-COV-2 COVID-19 2020-08-26 Completed [facility] PFIZER VACCINE 00:00:00 [facility] SARS-COV-2 COVID-19 2020-08-26 Completed [facility] PFIZER VACCINE 00:00:00 [facility] SARS-COV-2 COVID-19 2020-08-26 Completed [facility] PFIZER VACCINE 00:00:00 [facility] SARS-COV-2 COVID-19 2020-08-26 Completed [facility] PFIZER VACCINE 00:00:00 [facility] SARS-COV-2 COVID-19 2020-08-26 Completed [facility] PFIZER VACCINE 00:00:00 [facility] SARS-COV-2 COVID-19 2020-08-26 Completed [facility] PFIZER VACCINE 00:00:00 [facility] SARS-COV-2 COVID-19 2020-08-26 Completed [facility] PFIZER VACCINE 00:00:00 [facility] SARS-COV-2 COVID-19 2020-08-26 Completed [facility] PFIZER VACCINE 00:00:00 [facility] SARS-COV-2 COVID-19 2020-08-26 Completed [facility] PFIZER VACCINE 00:00:00 [facility] SARS-COV-2 COVID-19 2020-08-26 Completed [facility] PFIZER VACCINE 00:00:00 [facility] SARS-COV-2 COVID-19 2020-08-26 Completed [facility] PFIZER VACCINE 00:00:00 [facility] SARS-COV-2 COVID-19 2020-08-26 Completed [facility] PFIZER VACCINE 00:00:00 [facility] SARS-COV-2 COVID-19 2020-08-26 Completed [facility] PFIZER VACCINE 00:00:00 [facility] SARS-COV-2 COVID-19 2020-08-26 Completed [facility] PFIZER VACCINE 00:00:00 [facility] SARS-COV-2 COVID-19 2020-08-26 Completed [facility] PFIZER VACCINE 00:00:00 [facility] SARS-COV-2 COVID-19 2020-08-26 Completed [facility] PFIZER VACCINE 00:00:00 [facility] SARS-COV-2 COVID-19 2020-08-26 Completed [facility] PFIZER VACCINE 00:00:00 [facility] SARS-COV-2 COVID-19 2020-08-26 Completed [facility] PFIZER VACCINE 00:00:00 [facility] SARS-COV-2 COVID-19 2020-08-26 Completed [facility] PFIZER VACCINE 00:00:00 [facility] SARS-COV-2 COVID-19 2020-08-26 Completed [facility] PFIZER VACCINE 00:00:00 [facility] SARS-COV-2 COVID-19 2020-08-26 Completed [facility] PFIZER VACCINE 00:00:00 [facility] SARS-COV-2 COVID-19 2020-08-26 Completed [facility] PFIZER VACCINE 00:00:00 [facility] SARS-COV-2 COVID-19 2020-08-26 Completed [facility] PFIZER VACCINE 00:00:00 [facility] SARS-COV-2 COVID-19 2020-08-26 Completed [facility] PFIZER VACCINE 00:00:00 [facility] SARS-COV-2 COVID-19 2020-08-26 Completed [facility] PFIZER VACCINE 00:00:00 [facility] SARS-COV-2 COVID-19 2020-08-26 Completed [facility] PFIZER VACCINE 00:00:00 [facility] SARS-COV-2 COVID-19 2020-08-26 Completed [facility] PFIZER VACCINE 00:00:00 [facility] SARS-COV-2 COVID-19 2020-08-26 Completed [facility] PFIZER VACCINE 00:00:00 [facility] SARS-COV-2 COVID-19 2020-08-26 Completed [facility] PFIZER VACCINE 00:00:00 [facility] SARS-COV-2 COVID-19 2020-08-26 Completed [facility] PFIZER VACCINE 00:00:00 [facility] SARS-COV-2 COVID-19 2020-08-26 Completed [facility] PFIZER VACCINE 00:00:00 [facility] SARS-COV-2 COVID-19 2020-08-26 Completed [facility] PFIZER VACCINE 00:00:00 [facility] SARS-COV-2 COVID-19 2020-08-26 Completed [facility] PFIZER VACCINE 00:00:00 [facility] SARS-COV-2 COVID-19 2020-08-26 Completed [facility] PFIZER VACCINE 00:00:00 [facility] SARS-COV-2 COVID-19 2020-08-26 Completed [facility] PFIZER VACCINE 00:00:00 [facility] SARS-COV-2 COVID-19 2020-08-26 Completed [facility] PFIZER VACCINE 00:00:00 [facility] SARS-COV-2 COVID-19 2020-08-26 Completed [facility] PFIZER VACCINE 00:00:00 [facility] SARS-COV-2 COVID-19 2020-08-26 Completed [facility] PFIZER VACCINE 00:00:00 [facility] SARS-COV-2 COVID-19 2020-08-26 Completed [facility] PFIZER VACCINE 00:00:00 [facility] SARS-COV-2 COVID-19 2020-08-26 Completed [facility] PFIZER VACCINE 00:00:00 [facility] SARS-COV-2 COVID-19 2020-08-26 Completed [facility] PFIZER VACCINE 00:00:00 [facility] Influenza High Dose 2020-05-19 Completed [facility] 00:00:00 [facility] Influenza High Dose 2020-05-19 Completed [facility] 00:00:00 [facility] Influenza High Dose 2020-05-19 Completed [facility] 00:00:00 [facility] Influenza High Dose 2020-05-19 Completed [facility] 00:00:00 [facility] Influenza High Dose 2020-05-19 Completed [facility] 00:00:00 [facility] Influenza High Dose 2020-05-19 Completed [facility] 00:00:00 [facility] Influenza High Dose 2020-05-19 Completed [facility] 00:00:00 [facility] Influenza High Dose 2020-05-19 Completed [facility] 00:00:00 [facility] Influenza High Dose 2020-05-19 Completed [facility] 00:00:00 [facility] Influenza High Dose 2020-05-19 Completed [facility] 00:00:00 [facility] Influenza High Dose 2020-05-19 Completed [facility] 00:00:00 [facility] Influenza High Dose 2020-05-19 Completed [facility] 00:00:00 [facility] Influenza High Dose 2020-05-19 Completed [facility] 00:00:00 [facility] Influenza High Dose 2020-05-19 Completed [facility] 00:00:00 [facility] Influenza High Dose 2020-05-19 Completed [facility] 00:00:00 [facility] Influenza High Dose 2020-05-19 Completed [facility] 00:00:00 [facility] Influenza High Dose 2020-05-19 Completed [facility] of 00:00:00 [facility] Influenza High Dose 2020-05-19 Completed [facility] of 00:00:00 [facility] Influenza High Dose 2020-05-19 Completed [facility] 00[facility]00:00 [facility] Influenza High Dose 2020-05-19 Completed [facility] 00:00:00 [facility] Influenza High Dose 2020-05-19 Completed [facility] 00[facility]00:00 [facility] Influenza High Dose 2020-05-19 Completed [facility] 00:00:00 [facility] Influenza High Dose 2020-05-19 Completed [facility] 00:00:00 [facility] Influenza High Dose 2020-05-19 Completed [facility] 00:00:00 [facility] Influenza High Dose 2020-05-19 Completed [facility] 00:00:00 [facility] Influenza High Dose 2020-05-19 Completed [facility] 00:00:00 [facility] Influenza High Dose 2020-05-19 Completed [facility] 00:00:00 [facility] Influenza High Dose 2020-05-19 Completed [facility] 00:00:00 [facility] Influenza High Dose 2020-05-19 Completed [facility] 00:00:00 [facility] Influenza High Dose 2020-05-19 Completed [facility] 00:00:00 [facility] Influenza High Dose 2020-05-19 Completed [facility] 00:00:00 [facility] Influenza High Dose 2020-05-19 Completed [facility] 00:00:00 [facility] Influenza High Dose 2020-05-19 Completed [facility] 00:00:00 [facility] Influenza High Dose 2020-05-19 Completed [facility] 00:00:00 [facility] Influenza High Dose 2020-05-19 Completed [facility] 00:00:00 [facility] Influenza High Dose 2020-05-19 Completed [facility] 00:00:00 [facility] Influenza High Dose 2020-05-19 Completed [facility] 00:00:00 [facility] Influenza High Dose 2020-05-19 Completed [facility] 00:00:00 [facility] Influenza High Dose 2020-05-19 Completed [facility] 00:00:00 [facility] Influenza High Dose 2020-05-19 Completed [facility] 00:00:00 [facility] Influenza High Dose 2020-05-19 Completed [facility] 00:00:00 [facility] Influenza High Dose 2020-05-19 Completed [facility] 00:00:00 [facility] Influenza High Dose 2020-05-19 Completed [facility] 00:00:00 [facility] Influenza High Dose 2020-05-19 Completed [facility] 00:00:00 [facility] Influenza High Dose 2020-05-19 Completed [facility] 00:00:00 [facility] Influenza High Dose 2020-05-19 Completed [facility] 00:00:00 [facility] Influenza High Dose 2020-05-19 Completed [facility] 00:00:00 [facility] Influenza High Dose 2020-05-19 Completed [facility] 00:00:00 [facility] Influenza High Dose 2020-05-19 Completed [facility] 00:00:00 [facility] Influenza High Dose 2020-05-19 Completed [facility] 00:00:00 [facility] Influenza High Dose 2020-05-19 Completed [facility] 00:00:00 [facility] Influenza High Dose 2020-05-19 Completed [facility] 00:00:00 [facility] Influenza High Dose 2020-05-19 Completed [facility] 00:00:00 [facility] Influenza High Dose 2020-05-19 Completed [facility] 00:00:00 [facility] Influenza High Dose 2020-05-19 Completed [facility] 00:00:00 [facility] Influenza High Dose 2020-05-19 Completed [facility] 00:00:00 [facility] Influenza High Dose 2020-05-19 Completed [facility] 00:00:00 [facility] Influenza High Dose 2020-05-19 Completed [facility] 00:00:00 [facility] Influenza High Dose 2020-05-19 Completed [facility] 00:00:00 [facility] Influenza High Dose 2020-05-19 Completed [facility] 00:00:00 [facility] Influenza High Dose 2020-05-19 Completed [facility] 00:00:00 [facility] Influenza High Dose 2020-05-19 Completed [facility] 00:00:00 [facility] Influenza High Dose 2020-05-19 Completed [facility] 00:00:00 [facility] Influenza High Dose 2020-05-19 Completed [facility] 00:00:00 [facility] Influenza High Dose 2020-05-19 Completed [facility] 00:00:00 [facility] Influenza High Dose 2020-05-19 Completed [facility] 00:00:00 [facility] Influenza High Dose 2020-05-19 Completed [facility] 00:00:00 [facility] Influenza High Dose 2020-05-19 Completed [facility] 00:00:00 [facility] Influenza High Dose 2020-05-19 Completed [facility] 00:00:00 [facility] Influenza High Dose 2020-05-19 Completed [facility] 00:00:00 [facility] Influenza High Dose 2020-05-19 Completed [facility] 00:00:00 [facility] Influenza High Dose 2020-05-19 Completed [facility] 00:00:00 [facility] Influenza High Dose 2020-05-19 Completed [facility] 00:00:00 [facility] Influenza High Dose 2020-05-19 Completed [facility] 00:00:00 [facility] Influenza High Dose 2020-05-19 Completed [facility] 00:00:00 [facility] Influenza High Dose 2020-05-19 Completed [facility] 00:00:00 [facility] Influenza High Dose 2020-05-19 Completed [facility] 00:00:00 [facility] Influenza High Dose 2020-05-19 Completed [facility] 00:00:00 [facility] Influenza High Dose 2020-05-19 Completed [facility] 00:00:00 [facility] Influenza High Dose 2020-05-19 Completed [facility] 00:00:00 [facility] Influenza High Dose 2020-05-19 Completed [facility] 00:00:00 [facility] Influenza High Dose 2020-05-19 Completed [facility] 00:00:00 [facility] Influenza High Dose 2020-05-19 Completed [facility] 00:00:00 [facility] Influenza High Dose 2020-05-19 Completed [facility] 00:00:00 [facility] Influenza High Dose 2020-05-19 Completed [facility] 00:00:00 [facility] Influenza High Dose 2020-05-19 Completed [facility] 00:00:00 [facility] Influenza High Dose 2020-05-19 Completed [facility] 00:00:00 [facility] Influenza High Dose 2020-05-19 Completed [facility] 00:00:00 [facility] Influenza High Dose 2020-05-19 Completed [facility] 00:00:00 [facility] Influenza High Dose 2020-05-19 Completed [facility] 00:00:00 [facility] Influenza High Dose 2020-05-19 Completed [facility] 00:00:00 [facility] Influenza High Dose 2020-05-19 Completed [facility] 00:00:00 [facility] Influenza High Dose 2020-05-19 Completed [facility] 00:00:00 [facility] Influenza High Dose 2020-05-19 Completed [facility] 00:00:00 [facility] Influenza High Dose 2020-05-19 Completed [facility] 00:00:00 [facility] Influenza High Dose 2020-05-19 Completed [facility] 00:00:00 [facility] Influenza High Dose 2020-05-19 Completed [facility] 00:00:00 [facility] Influenza High Dose 2020-05-19 Completed [facility] 00:00:00 [facility] Influenza High Dose 2020-05-19 Completed [facility] 00:00:00 [facility] Influenza High Dose 2020-05-19 Completed [facility] 00:00:00 [facility] Influenza High Dose 2020-05-19 Completed [facility] 00:00:00 [facility] Influenza High Dose 2020-05-19 Completed [facility] 00:00:00 [facility] Influenza High Dose 2020-05-19 Completed [facility] 00:00:00 [facility] Influenza High Dose 2020-05-19 Completed [facility] 00:00:00 [facility] Influenza High Dose 2020-05-19 Completed [facility] 00:00:00 [facility] Influenza High Dose 2020-05-19 Completed [facility] 00:00:00 [facility] Influenza High Dose 2020-05-19 Completed [facility] 00:00:00 [facility] Influenza High Dose 2020-05-19 Completed [facility] 00:00:00 [facility] Influenza High Dose 2020-05-19 Completed [facility] 00:00:00 [facility] Influenza High Dose 2020-05-19 Completed [facility] 00:00:00 [facility] Influenza High Dose 2020-05-19 Completed [facility] 00:00:00 [facility] Influenza Virus 2020-05-18 Completed [facility] Vaccine Recomb Quad 00:00:00 [facility], Preserv and ABX Branc h Free 18-64 YRS Zoster Vaccine 2020-05-18 Completed [facility] Recombinant 00:00:00 [facility] Influenza Virus 2020-05-18 Completed [facility] Vaccine Recomb Quad 00:00:00 [facility], Preserv and ABX Branc h Free 18-64 YRS Zoster Vaccine 2020-05-18 Completed [facility] Recombinant 00:00:00 [facility] Influenza Virus 2020-05-18 Completed [facility] Vaccine Recomb Quad 00:00:00 [facility], Preserv and ABX Branc h Free 18-64 YRS Zoster Vaccine 2020-05-18 Completed [facility] Recombinant 00:00:00 [facility] Influenza Virus 2020-05-18 Completed [facility] Vaccine Recomb Quad 00:00:00 [facility], Preserv and ABX Branc h Free 18-64 YRS Zoster Vaccine 2020-05-18 Completed [facility] Recombinant 00:00:00 [facility] Influenza Virus 2020-05-18 Completed [facility] Vaccine Recomb Quad 00:00:00 [facility], Preserv and ABX Branc h Free 18-64 YRS Zoster Vaccine 2020-05-18 Completed [facility] Recombinant 00:00:00 [facility] Influenza Virus 2020-05-18 Completed [facility] Vaccine Recomb Quad 00:00:00 [facility], Preserv and ABX Branc h Free 18-64 YRS Zoster Vaccine 2020-05-18 Completed [facility] Recombinant 00:00:00 [facility] Influenza Virus 2020-05-18 Completed [facility] Vaccine Recomb Quad 00:00:00 [facility], Preserv and ABX Branc h Free 18-64 YRS Zoster Vaccine 2020-05-18 Completed [facility] Recombinant 00:00:00 [facility] Influenza Virus 2020-05-18 Completed [facility] Vaccine Recomb Quad 00:00:00 [facility], Preserv and ABX Branc h Free 18-64 YRS Zoster Vaccine 2020-05-18 Completed [facility] Recombinant 00:00:00 [facility] Influenza Virus 2020-05-18 Completed [facility] Vaccine Recomb Quad 00:00:00 [facility], Preserv and ABX Branc h Free 18-64 YRS Zoster Vaccine 2020-05-18 Completed [facility] Recombinant 00:00:00 [facility] Influenza Virus 2020-05-18 Completed [facility] Vaccine Recomb Quad 00:00:00 [facility], Preserv and ABX Branc h Free 18-64 YRS Zoster Vaccine 2020-05-18 Completed [facility] Recombinant 00:00:00 [facility] Influenza Virus 2020-05-18 Completed [facility] Vaccine Recomb Quad 00:00:00 [facility], Preserv and ABX Branc h Free 18-64 YRS Zoster Vaccine 2020-05-18 Completed [facility] Recombinant 00:00:00 [facility] Influenza Virus 2020-05-18 Completed [facility] Vaccine Recomb Quad 00:00:00 [facility], Preserv and ABX Branc h Free 18-64 YRS Zoster Vaccine 2020-05-18 Completed [facility] Recombinant 00:00:00 [facility] Influenza Virus 2020-05-18 Completed [facility] Vaccine Recomb Quad 00:00:00 [facility], Preserv and ABX Branc h Free 18-64 YRS Zoster Vaccine 2020-05-18 Completed [facility] Recombinant 00:00:00 [facility] Influenza Virus 2020-05-18 Completed [facility] Vaccine Recomb Quad 00:00:00 [facility], Preserv and ABX Branc h Free 18-64 YRS Zoster Vaccine 2020-05-18 Completed [facility] Recombinant 00:00:00 [facility] Influenza Virus 2020-05-18 Completed [facility] Vaccine Recomb Quad 00:00:00 [facility], Preserv and ABX Branc h Free 18-64 YRS Zoster Vaccine 2020-05-18 Completed [facility] Recombinant 00:00:00 [facility] Influenza Virus 2020-05-18 Completed [facility] Vaccine Recomb Quad 00[facility]00:00 [facility], Preserv and ABX Branc h Free 18-64 YRS Zoster Vaccine 2020-05-18 Completed [facility] Recombinant 00:00:00 [facility] Influenza Virus 2020-05-18 Completed [facility] Vaccine Recomb Quad 00:00:00 [facility], Preserv and ABX Branc h Free 18-64 YRS Zoster Vaccine 2020-05-18 Completed [facility] Recombinant 00:00:00 [facility] Influenza Virus 2020-05-18 Completed [facility] Vaccine Recomb Quad 00:00:00 [facility], Preserv and ABX Branc h Free 18-64 YRS Zoster Vaccine 2020-05-18 Completed [facility] Recombinant 00:00:00 [facility] Influenza Virus 2020-05-18 Completed [facility] Vaccine Recomb Quad 00:00:00 [facility], Preserv and ABX Branc h Free 18-64 YRS Zoster Vaccine 2020-05-18 Completed [facility] Recombinant 00:00:00 [facility] Influenza Virus 2020-05-18 Completed [facility] Vaccine Recomb Quad 00:00:00 [facility], Preserv and ABX Branc h Free 18-64 YRS Zoster Vaccine 2020-05-18 Completed [facility] Recombinant 00:00:00 [facility] Influenza Virus 2020-05-18 Completed [facility] Vaccine Recomb Quad 00:00:00 [facility], Preserv and ABX Branc h Free 18-64 YRS Zoster Vaccine 2020-05-18 Completed [facility] Recombinant 00:00:00 [facility] Influenza Virus 2020-05-18 Completed [facility] Vaccine Recomb Quad 00:00:00 [facility], Preserv and ABX Branc h Free 18-64 YRS Zoster Vaccine 2020-05-18 Completed [facility] Recombinant 00:00:00 [facility] Influenza Virus 2020-05-18 Completed [facility] Vaccine Recomb Quad 00:00:00 [facility], Preserv and ABX Branc h Free 18-64 YRS Zoster Vaccine 2020-05-18 Completed [facility] Recombinant 00:00:00 [facility] Influenza Virus 2020-05-18 Completed [facility] Vaccine Recomb Quad 00:00:00 [facility], Preserv and ABX Branc h Free 18-64 YRS Zoster Vaccine 2020-05-18 Completed [facility] Recombinant 00:00:00 [facility] Influenza Virus 2020-05-18 Completed [facility] Vaccine Recomb Quad 00:00:00 [facility], Preserv and ABX Branc h Free 18-64 YRS Zoster Vaccine 2020-05-18 Completed [facility] Recombinant 00:00:00 [facility] Influenza Virus 2020-05-18 Completed [facility] Vaccine Recomb Quad 00:00:00 [facility], Preserv and ABX Branc h Free 18-64 YRS Zoster Vaccine 2020-05-18 Completed [facility] Recombinant 00:00:00 [facility] Influenza Virus 2020-05-18 Completed [facility] Vaccine Recomb Quad 00:00:00 [facility], Preserv and ABX Branc h Free 18-64 YRS Zoster Vaccine 2020-05-18 Completed [facility] Recombinant 00:00:00 [facility] Influenza Virus 2020-05-18 Completed [facility] Vaccine Recomb Quad 00:00:00 [facility], Preserv and ABX Branc h Free 18-64 YRS Zoster Vaccine 2020-05-18 Completed [facility] Recombinant 00:00:00 [facility] Influenza Virus 2020-05-18 Completed [facility] Vaccine Recomb Quad 00:00:00 [facility], Preserv and ABX Branc h Free 18-64 YRS Zoster Vaccine 2020-05-18 Completed [facility] Recombinant 00:00:00 [facility] Influenza Virus 2020-05-18 Completed [facility] Vaccine Recomb Quad 00:00:00 [facility], Preserv and ABX Branc h Free 18-64 YRS Zoster Vaccine 2020-05-18 Completed [facility] Recombinant 00:00:00 [facility] Influenza Virus 2020-05-18 Completed [facility] Vaccine Recomb Quad 00:00:00 [facility], Preserv and ABX Branc h Free 18-64 YRS Zoster Vaccine 2020-05-18 Completed [facility] Recombinant 00:00:00 [facility] Influenza Virus 2020-05-18 Completed [facility] Vaccine Recomb Quad 00:00:00 [facility], Preserv and ABX Branc h Free 18-64 YRS Zoster Vaccine 2020-05-18 Completed [facility] Recombinant 00:00:00 [facility] Influenza Virus 2020-05-18 Completed [facility] Vaccine Recomb Quad 00:00:00 [facility], Preserv and ABX Branc h Free 18-64 YRS Zoster Vaccine 2020-05-18 Completed [facility] Recombinant 00:00:00 [facility] Influenza Virus 2020-05-18 Completed [facility] Vaccine Recomb Quad 00:00:00 [facility], Preserv and ABX Branc h Free 18-64 YRS Zoster Vaccine 2020-05-18 Completed [facility] Recombinant 00:00:00 [facility] Influenza Virus 2020-05-18 Completed [facility] Vaccine Recomb Quad 00:00:00 [facility], Preserv and ABX Branc h Free 18-64 YRS Zoster Vaccine 2020-05-18 Completed [facility] Recombinant 00:00:00 [facility] Influenza Virus 2020-05-18 Completed [facility] Vaccine Recomb Quad 00:00:00 [facility], Preserv and ABX Branc h Free 18-64 YRS Zoster Vaccine 2020-05-18 Completed [facility] Recombinant 00:00:00 [facility] Influenza Virus 2020-05-18 Completed [facility] Vaccine Recomb Quad 00:00:00 [facility], Preserv and ABX Branc h Free 18-64 YRS Zoster Vaccine 2020-05-18 Completed [facility] Recombinant 00:00:00 [facility] Influenza Virus 2020-05-18 Completed [facility] Vaccine Recomb Quad 00:00:00 [facility], Preserv and ABX Branc h Free 18-64 YRS Zoster Vaccine 2020-05-18 Completed [facility] Recombinant 00:00:00 [facility] Influenza Virus 2020-05-18 Completed [facility] Vaccine Recomb Quad 00:00:00 [facility], Preserv and ABX Branc h Free 18-64 YRS Zoster Vaccine 2020-05-18 Completed [facility] Recombinant 00:00:00 [facility] Influenza Virus 2020-05-18 Completed [facility] Vaccine Recomb Quad 00:00:00 [facility], Preserv and ABX Branc h Free 18-64 YRS Zoster Vaccine 2020-05-18 Completed [facility] Recombinant 00:00:00 [facility] Influenza Virus 2020-05-18 Completed [facility] Vaccine Recomb Quad 00:00:00 [facility], Preserv and ABX Branc h Free 18-64 YRS Zoster Vaccine 2020-05-18 Completed [facility] Recombinant 00:00:00 [facility] Influenza Virus 2020-05-18 Completed [facility] Vaccine Recomb Quad 00:00:00 [facility], Preserv and ABX Branc h Free 18-64 YRS Zoster Vaccine 2020-05-18 Completed [facility] Recombinant 00:00:00 [facility] Influenza Virus 2020-05-18 Completed [facility] Vaccine Recomb Quad 00:00:00 [facility], Preserv and ABX Branc h Free 18-64 YRS Zoster Vaccine 2020-05-18 Completed [facility] Recombinant 00:00:00 [facility] Influenza Virus 2020-05-18 Completed [facility] Vaccine Recomb Quad 00:00:00 [facility], Preserv and ABX Branc h Free 18-64 YRS Zoster Vaccine 2020-05-18 Completed [facility] Recombinant 00:00:00 [facility] Influenza Virus 2020-05-18 Completed [facility] Vaccine Recomb Quad 00:00:00 [facility], Preserv and ABX Branc h Free 18-64 YRS Zoster Vaccine 2020-05-18 Completed [facility] Recombinant 00:00:00 [facility] Influenza Virus 2020-05-18 Completed [facility] Vaccine Recomb Quad 00:00:00 [facility], Preserv and ABX Branc h Free 18-64 YRS Zoster Vaccine 2020-05-18 Completed [facility] Recombinant 00:00:00 [facility] Influenza Virus 2020-05-18 Completed [facility] Vaccine Recomb Quad 00:00:00 [facility], Preserv and ABX Branc h Free 18-64 YRS Zoster Vaccine 2020-05-18 Completed [facility] Recombinant 00:00:00 [facility] Influenza Virus 2020-05-18 Completed [facility] Vaccine Recomb Quad 00:00:00 [facility], Preserv and ABX Branc h Free 18-64 YRS Zoster Vaccine 2020-05-18 Completed [facility] Recombinant 00:00:00 [facility] Influenza Virus 2020-05-18 Completed [facility] Vaccine Recomb Quad 00:00:00 [facility], Preserv and ABX Branc h Free 18-64 YRS Zoster Vaccine 2020-05-18 Completed [facility] Recombinant 00:00:00 [facility] Influenza Virus 2020-05-18 Completed [facility] Vaccine Recomb Quad 00:00:00 [facility], Preserv and ABX Branc h Free 18-64 YRS Zoster Vaccine 2020-05-18 Completed [facility] Recombinant 00:00:00 [facility] Influenza Virus 2020-05-18 Completed [facility] Vaccine Recomb Quad 00:00:00 [facility], Preserv and ABX Branc h Free 18-64 YRS Zoster Vaccine 2020-05-18 Completed [facility] Recombinant 00:00:00 [facility] Influenza Virus 2020-05-18 Completed [facility] Vaccine Recomb Quad 00:00:00 [facility], Preserv and ABX Branc h Free 18-64 YRS Zoster Vaccine 2020-05-18 Completed [facility] Recombinant 00:00:00 [facility] Influenza Virus 2020-05-18 Completed [facility] Vaccine Recomb Quad 00:00:00 [facility], Preserv and ABX Branc h Free 18-64 YRS Zoster Vaccine 2020-05-18 Completed [facility] Recombinant 00:00:00 [facility] Influenza Virus 2020-05-18 Completed [facility] Vaccine Recomb Quad 00:00:00 [facility], Preserv and ABX Branc h Free 18-64 YRS Zoster Vaccine 2020-05-18 Completed [facility] Recombinant 00:00:00 [facility] Influenza Virus 2020-05-18 Completed [facility] Vaccine Recomb Quad 00:00:00 [facility], Preserv and ABX Branc h Free 18-64 YRS Zoster Vaccine 2020-05-18 Completed [facility] Recombinant 00:00:00 [facility] Influenza Virus 2020-05-18 Completed [facility] Vaccine Recomb Quad 00:00:00 [facility], Preserv and ABX Branc h Free 18-64 YRS Zoster Vaccine 2020-05-18 Completed [facility] Recombinant 00:00:00 [facility] Influenza Virus 2020-05-18 Completed [facility] Vaccine Recomb Quad 00:00:00 [facility], Preserv and ABX Branc h Free 18-64 YRS Zoster Vaccine 2020-05-18 Completed [facility] Recombinant 00:00:00 [facility] Influenza Virus 2020-05-18 Completed [facility] Vaccine Recomb Quad 00:00:00 [facility], Preserv and ABX Branc h Free 18-64 YRS Zoster Vaccine 2020-05-18 Completed [facility] Recombinant 00:00:00 [facility] Influenza Virus 2020-05-18 Completed [facility] Vaccine Recomb Quad 00:00:00 [facility], Preserv and ABX Branc h Free 18-64 YRS Zoster Vaccine 2020-05-18 Completed [facility] Recombinant 00:00:00 [facility] Influenza Virus 2020-05-18 Completed [facility] Vaccine Recomb Quad 00:00:00 [facility], Preserv and ABX Branc h Free 18-64 YRS Zoster Vaccine 2020-05-18 Completed [facility] Recombinant 00:00:00 [facility] Influenza Virus 2020-05-18 Completed [facility] Vaccine Recomb Quad 00:00:00 [facility], Preserv and ABX Branc h Free 18-64 YRS Zoster Vaccine 2020-05-18 Completed [facility] Recombinant 00:00:00 [facility] Influenza Virus 2020-05-18 Completed [facility] Vaccine Recomb Quad 00:00:00 [facility], Preserv and ABX Branc h Free 18-64 YRS Zoster Vaccine 2020-05-18 Completed [facility] Recombinant 00:00:00 [facility] Influenza Virus 2020-05-18 Completed [facility] Vaccine Recomb Quad 00:00:00 [facility], Preserv and ABX Branc h Free 18-64 YRS Zoster Vaccine 2020-05-18 Completed [facility] Recombinant 00:00:00 [facility] Influenza Virus 2020-05-18 Completed [facility] Vaccine Recomb Quad 00:00:00 [facility], Preserv and ABX Branc h Free 18-64 YRS Zoster Vaccine 2020-05-18 Completed [facility] Recombinant 00:00:00 [facility] Influenza Virus 2020-05-18 Completed [facility] Vaccine Recomb Quad 00:00:00 [facility], Preserv and ABX Branc h Free 18-64 YRS Zoster Vaccine 2020-05-18 Completed [facility] Recombinant 00:00:00 [facility] Influenza Virus 2020-05-18 Completed [facility] Vaccine Recomb Quad 00:00:00 [facility], Preserv and ABX Branc h Free 18-64 YRS Zoster Vaccine 2020-05-18 Completed [facility] Recombinant 00:00:00 [facility] Influenza Virus 2020-05-18 Completed [facility] Vaccine Recomb Quad 00:00:00 [facility], Preserv and ABX Branc h Free 18-64 YRS Zoster Vaccine 2020-05-18 Completed [facility] Recombinant 00:00:00 [facility] Influenza Virus 2020-05-18 Completed [facility] Vaccine Recomb Quad 00:00:00 [facility], Preserv and ABX Branc h Free 18-64 YRS Zoster Vaccine 2020-05-18 Completed [facility] Recombinant 00:00:00 [facility] Influenza Virus 2020-05-18 Completed [facility] Vaccine Recomb Quad 00:00:00 [facility], Preserv and ABX Branc h Free 18-64 YRS Zoster Vaccine 2020-05-18 Completed [facility] Recombinant 00:00:00 [facility] Influenza Virus 2020-05-18 Completed [facility] Vaccine Recomb Quad 00:00:00 [facility], Preserv and ABX Branc h Free 18-64 YRS Zoster Vaccine 2020-05-18 Completed [facility] Recombinant 00:00:00 [facility] Influenza Virus 2020-05-18 Completed [facility] Vaccine Recomb Quad 00:00:00 [facility], Preserv and ABX Branc h Free 18-64 YRS Zoster Vaccine 2020-05-18 Completed [facility] Recombinant 00:00:00 [facility] Influenza Virus 2020-05-18 Completed [facility] Vaccine Recomb Quad 00:00:00 [facility], Preserv and ABX Branc h Free 18-64 YRS Zoster Vaccine 2020-05-18 Completed [facility] Recombinant 00:00:00 [facility] Influenza Virus 2020-05-18 Completed [facility] Vaccine Recomb Quad 00:00:00 [facility], Preserv and ABX Branc h Free 18-64 YRS Zoster Vaccine 2020-05-18 Completed [facility] Recombinant 00:00:00 [facility] Influenza Virus 2020-05-18 Completed [facility] Vaccine Recomb Quad 00:00:00 [facility], Preserv and ABX Branc h Free 18-64 YRS Zoster Vaccine 2020-05-18 Completed [facility] Recombinant 00:00:00 [facility] Influenza Virus 2020-05-18 Completed [facility] Vaccine Recomb Quad 00:00:00 [facility], Preserv and ABX Branc h Free 18-64 YRS Zoster Vaccine 2020-05-18 Completed [facility] Recombinant 00:00:00 [facility] Influenza Virus 2020-05-18 Completed [facility] Vaccine Recomb Quad 00:00:00 [facility], Preserv and ABX Branc h Free 18-64 YRS Zoster Vaccine 2020-05-18 Completed [facility] Recombinant 00:00:00 [facility] Influenza Virus 2020-05-18 Completed [facility] Vaccine Recomb Quad 00:00:00 [facility], Preserv and ABX Branc h Free 18-64 YRS Zoster Vaccine 2020-05-18 Completed [facility] Recombinant 00:00:00 [facility] Influenza Virus 2020-05-18 Completed [facility] Vaccine Recomb Quad 00:00:00 [facility], Preserv and ABX Branc h Free 18-64 YRS Zoster Vaccine 2020-05-18 Completed [facility] Recombinant 00:00:00 [facility] Influenza Virus 2020-05-18 Completed [facility] Vaccine Recomb Quad 00:00:00 [facility], Preserv and ABX Branc h Free 18-64 YRS Zoster Vaccine 2020-05-18 Completed [facility] Recombinant 00:00:00 [facility] Influenza Virus 2020-05-18 Completed [facility] Vaccine Recomb Quad 00:00:00 [facility], Preserv and ABX Branc h Free 18-64 YRS Zoster Vaccine 2020-05-18 Completed [facility] Recombinant 00:00:00 [facility] Influenza Virus 2020-05-18 Completed [facility] Vaccine Recomb Quad 00:00:00 [facility], Preserv and ABX Branc h Free 18-64 YRS Zoster Vaccine 2020-05-18 Completed [facility] Recombinant 00:00:00 [facility] Influenza Virus 2020-05-18 Completed [facility] Vaccine Recomb Quad 00:00:00 [facility], Preserv and ABX Branc h Free 18-64 YRS Zoster Vaccine 2020-05-18 Completed [facility] Recombinant 00:00:00 [facility] Influenza Virus 2020-05-18 Completed [facility] Vaccine Recomb Quad 00:00:00 [facility], Preserv and ABX Branc h Free 18-64 YRS Zoster Vaccine 2020-05-18 Completed [facility] Recombinant 00:00:00 [facility] Influenza Virus 2020-05-18 Completed [facility] Vaccine Recomb Quad 00:00:00 [facility], Preserv and ABX Branc h Free 18-64 YRS Zoster Vaccine 2020-05-18 Completed [facility] Recombinant 00:00:00 [facility] Influenza Virus 2020-05-18 Completed [facility] Vaccine Recomb Quad 00:00:00 [facility], Preserv and ABX Branc h Free 18-64 YRS Zoster Vaccine 2020-05-18 Completed [facility] Recombinant 00:00:00 [facility] Influenza Virus 2020-05-18 Completed [facility] Vaccine Recomb Quad 00:00:00 [facility], Preserv and ABX Branc h Free 18-64 YRS Zoster Vaccine 2020-05-18 Completed [facility] Recombinant 00:00:00 [facility] Influenza Virus 2020-05-18 Completed [facility] Vaccine Recomb Quad 00:00:00 [facility], Preserv and ABX Branc h Free 18-64 YRS Zoster Vaccine 2020-05-18 Completed [facility] Recombinant 00:00:00 [facility] Influenza Virus 2020-05-18 Completed [facility] Vaccine Recomb Quad 00:00:00 [facility], Preserv and ABX Branc h Free 18-64 YRS Zoster Vaccine 2020-05-18 Completed [facility] Recombinant 00:00:00 [facility] Influenza Virus 2020-05-18 Completed [facility] Vaccine Recomb Quad 00:00:00 [facility], Preserv and ABX Branc h Free 18-64 YRS Zoster Vaccine 2020-05-18 Completed [facility] Recombinant 00:00:00 [facility] Influenza Virus 2020-05-18 Completed [facility] Vaccine Recomb Quad 00:00:00 [facility], Preserv and ABX Branc h Free 18-64 YRS Zoster Vaccine 2020-05-18 Completed [facility] Recombinant 00:00:00 [facility] Influenza Virus 2020-05-18 Completed [facility] Vaccine Recomb Quad 00:00:00 [facility], Preserv and ABX Branc h Free 18-64 YRS Zoster Vaccine 2020-05-18 Completed [facility] Recombinant 00:00:00 [facility] Influenza Virus 2020-05-18 Completed [facility] Vaccine Recomb Quad 00:00:00 [facility], Preserv and ABX Branc h Free 18-64 YRS Zoster Vaccine 2020-05-18 Completed [facility] Recombinant 00:00:00 [facility] Influenza Virus 2020-05-18 Completed [facility] Vaccine Recomb Quad 00:00:00 [facility], Preserv and ABX Branc h Free 18-64 YRS Zoster Vaccine 2020-05-18 Completed [facility] Recombinant 00:00:00 [facility] Influenza Virus 2020-05-18 Completed [facility] Vaccine Recomb Quad 00:00:00 [facility], Preserv and ABX Branc h Free 18-64 YRS Zoster Vaccine 2020-05-18 Completed [facility] Recombinant 00:00:00 [facility] Influenza Virus 2020-05-18 Completed [facility] Vaccine Recomb Quad 00:00:00 [facility], Preserv and ABX Branc h Free 18-64 YRS Zoster Vaccine 2020-05-18 Completed [facility] Recombinant 00:00:00 [facility] Influenza Virus 2020-05-18 Completed [facility] Vaccine Recomb Quad 00:00:00 [facility], Preserv and ABX Branc h Free 18-64 YRS Zoster Vaccine 2020-05-18 Completed [facility] Recombinant 00:00:00 [facility] Influenza Virus 2020-05-18 Completed [facility] Vaccine Recomb Quad 00:00:00 [facility], Preserv and ABX Branc h Free 18-64 YRS Zoster Vaccine 2020-05-18 Completed [facility] Recombinant 00:00:00 [facility] Influenza Virus 2020-05-18 Completed [facility] Vaccine Recomb Quad 00:00:00 [facility], Preserv and ABX Branc h Free 18-64 YRS Zoster Vaccine 2020-05-18 Completed [facility] Recombinant 00:00:00 [facility] Influenza Virus 2020-05-18 Completed [facility] Vaccine Recomb Quad 00:00:00 [facility], Preserv and ABX Branc h Free 18-64 YRS Zoster Vaccine 2020-05-18 Completed [facility] Recombinant 00:00:00 [facility] Influenza Virus 2020-05-18 Completed [facility] Vaccine Recomb Quad 00:00:00 [facility], Preserv and ABX Branc h Free 18-64 YRS Zoster Vaccine 2020-05-18 Completed [facility] Recombinant 00:00:00 [facility] Influenza Virus 2020-05-18 Completed [facility] Vaccine Recomb Quad 00:00:00 [facility], Preserv and ABX Branc h Free 18-64 YRS Zoster Vaccine 2020-05-18 Completed [facility] Recombinant 00:00:00 [facility] Influenza Virus 2020-05-18 Completed [facility] Vaccine Recomb Quad 00:00:00 [facility], Preserv and ABX Branc h Free 18-64 YRS Zoster Vaccine 2020-05-18 Completed [facility] Recombinant 00:00:00 [facility] Influenza Virus 2020-05-18 Completed [facility] Vaccine Recomb Quad 00:00:00 [facility], Preserv and ABX Branc h Free 18-64 YRS Zoster Vaccine 2020-05-18 Completed [facility] Recombinant 00:00:00 [facility] Influenza Virus 2020-05-18 Completed [facility] Vaccine Recomb Quad 00:00:00 [facility], Preserv and ABX Branc h Free 18-64 YRS Zoster Vaccine 2020-05-18 Completed [facility] Recombinant 00:00:00 [facility] Influenza Virus 2020-05-18 Completed [facility] Vaccine Recomb Quad 00:00:00 [facility], Preserv and ABX Branc h Free 18-64 YRS Zoster Vaccine 2020-05-18 Completed [facility] Recombinant 00:00:00 [facility] Influenza Virus 2020-05-18 Completed [facility] Vaccine Recomb Quad 00:00:00 [facility], Preserv and ABX Branc h Free 18-64 YRS Zoster Vaccine 2020-05-18 Completed [facility] Recombinant 00:00:00 [facility] Influenza Virus 2020-05-18 Completed [facility] Vaccine Recomb Quad 00:00:00 [facility], Preserv and ABX Branc h Free 18-64 YRS Zoster Vaccine 2020-05-18 Completed [facility] Recombinant 00:00:00 [facility] Influenza Virus 2020-05-18 Completed [facility] Vaccine Recomb Quad 00:00:00 [facility], Preserv and ABX Branc h Free 18-64 YRS Zoster Vaccine 2020-05-18 Completed [facility] Recombinant 00:00:00 [facility] Influenza Virus 2020-05-18 Completed [facility] Vaccine Recomb Quad 00:00:00 [facility], Preserv and ABX Branc h Free 18-64 YRS Zoster Vaccine 2020-05-18 Completed [facility] Recombinant 00:00:00 [facility] Influenza Virus 2020-05-18 Completed [facility] Vaccine Recomb Quad 00:00:00 [facility], Preserv and ABX Branc h Free 18-64 YRS Zoster Vaccine 2020-05-18 Completed [facility] Recombinant 00:00:00 [facility] Influenza Virus 2020-05-18 Completed [facility] Vaccine Recomb Quad 00:00:00 [facility], Preserv and ABX Branc h Free 18-64 YRS Zoster Vaccine 2020-05-18 Completed [facility] Recombinant 00:00:00 [facility] Twinrix (hep a/hep 2020-02-04 Completed [facility] b) 00:00:00 [facility] Zoster Vaccine 2020-02-04 Completed [facility] Recombinant 00:00:00 [facility] Twinrix (hep a/hep 2020-02-04 Completed [facility] b) 00:00:00 [facility] Zoster Vaccine 2020-02-04 Completed [facility] Recombinant 00:00:00 [facility] Twinrix (hep a/hep 2020-02-04 Completed [facility] b) 00:00:00 [facility] Zoster Vaccine 2020-02-04 Completed [facility] Recombinant 00:00:00 [facility] Twinrix (hep a/hep 2020-02-04 Completed [facility] b) 00:00:00 [facility] Zoster Vaccine 2020-02-04 Completed [facility] Recombinant 00:00:00 [facility] Twinrix (hep a/hep 2020-02-04 Completed [facility] b) 00:00:00 [facility] Zoster Vaccine 2020-02-04 Completed [facility] Recombinant 00:00:00 [facility] Twinrix (hep a/hep 2020-02-04 Completed [facility] b) 00:00:00 [facility] Zoster Vaccine 2020-02-04 Completed [facility] Recombinant 00:00:00 [facility] Twinrix (hep a/hep 2020-02-04 Completed [facility] b) 00:00:00 [facility] Zoster Vaccine 2020-02-04 Completed [facility] Recombinant 00:00:00 [facility] Twinrix (hep a/hep 2020-02-04 Completed [facility] b) 00:00:00 [facility] Zoster Vaccine 2020-02-04 Completed [facility] Recombinant 00:00:00 [facility] Twinrix (hep a/hep 2020-02-04 Completed [facility] b) 00:00:00 [facility] Zoster Vaccine 2020-02-04 Completed [facility] Recombinant 00:00:00 [facility] Twinrix (hep a/hep 2020-02-04 Completed [facility] b) 00:00:00 [facility] Zoster Vaccine 2020-02-04 Completed [facility] Recombinant 00:00:00 [facility] Twinrix (hep a/hep 2020-02-04 Completed [facility] b) 00:00:00 [facility] Zoster Vaccine 2020-02-04 Completed [facility] Recombinant 00:00:00 [facility] Twinrix (hep a/hep 2020-02-04 Completed [facility] b) 00:00:00 [facility] Zoster Vaccine 2020-02-04 Completed [facility] Recombinant 00:00:00 [facility] Twinrix (hep a/hep 2020-02-04 Completed [facility] b) 00:00:00 [facility] Zoster Vaccine 2020-02-04 Completed [facility] Recombinant 00:00:00 [facility] Twinrix (hep a/hep 2020-02-04 Completed [facility] b) 00:00:00 [facility] Zoster Vaccine 2020-02-04 Completed [facility] Recombinant 00:00:00 [facility] Twinrix (hep a/hep 2020-02-04 Completed [facility] b) 00:00:00 [facility] Zoster Vaccine 2020-02-04 Completed [facility] Recombinant 00:00:00 [facility] Twinrix (hep a/hep 2020-02-04 Completed [facility] b) 00:00:00 [facility] Zoster Vaccine 2020-02-04 Completed [facility] Recombinant 00:00:00 [facility] Twinrix (hep a/hep 2020-02-04 Completed [facility] b) 00:00:00 [facility] Zoster Vaccine 2020-02-04 Completed [facility] Recombinant 00:00:00 [facility] Twinrix (hep a/hep 2020-02-04 Completed [facility] b) 00:00:00 [facility] Zoster Vaccine 2020-02-04 Completed [facility] Recombinant 00:00:00 [facility] Twinrix (hep a/hep 2020-02-04 Completed [facility] b) 00:00:00 [facility] Zoster Vaccine 2020-02-04 Completed [facility] Recombinant 00:00:00 [facility] Twinrix (hep a/hep 2020-02-04 Completed [facility] b) 00:00:00 [facility] Zoster Vaccine 2020-02-04 Completed [facility] Recombinant 00:00:00 [facility] Twinrix (hep a/hep 2020-02-04 Completed [facility] b) 00:00:00 [facility] Zoster Vaccine 2020-02-04 Completed [facility] Recombinant 00:00:00 [facility] Twinrix (hep a/hep 2020-02-04 Completed [facility] b) 00:00:00 [facility] Zoster Vaccine 2020-02-04 Completed [facility] Recombinant 00:00:00 [facility] Twinrix (hep a/hep 2020-02-04 Completed [facility] b) 00:00:00 [facility] Zoster Vaccine 2020-02-04 Completed [facility] Recombinant 00:00:00 [facility] Twinrix (hep a/hep 2020-02-04 Completed [facility] b) 00:00:00 [facility] Zoster Vaccine 2020-02-04 Completed [facility] Recombinant 00:00:00 [facility] Twinrix (hep a/hep 2020-02-04 Completed [facility] b) 00:00:00 [facility] Zoster Vaccine 2020-02-04 Completed [facility] Recombinant 00:00:00 [facility] Twinrix (hep a/hep 2020-02-04 Completed [facility] b) 00:00:00 [facility] Zoster Vaccine 2020-02-04 Completed [facility] Recombinant 00:00:00 [facility] Twinrix (hep a/hep 2020-02-04 Completed [facility] b) 00:00:00 [facility] Zoster Vaccine 2020-02-04 Completed [facility] Recombinant 00:00:00 [facility] Twinrix (hep a/hep 2020-02-04 Completed [facility] b) 00:00:00 [facility] Zoster Vaccine 2020-02-04 Completed [facility] Recombinant 00:00:00 [facility] Twinrix (hep a/hep 2020-02-04 Completed [facility] b) 00:00:00 [facility] Zoster Vaccine 2020-02-04 Completed [facility] Recombinant 00:00:00 [facility] Twinrix (hep a/hep 2020-02-04 Completed [facility] b) 00:00:00 [facility] Zoster Vaccine 2020-02-04 Completed [facility] Recombinant 00:00:00 [facility] Twinrix (hep a/hep 2020-02-04 Completed [facility] b) 00:00:00 [facility] Zoster Vaccine 2020-02-04 Completed [facility] Recombinant 00:00:00 [facility] Twinrix (hep a/hep 2020-02-04 Completed [facility] b) 00:00:00 [facility] Zoster Vaccine 2020-02-04 Completed [facility] Recombinant 00:00:00 [facility] Twinrix (hep a/hep 2020-02-04 Completed [facility] b) 00:00:00 [facility] Zoster Vaccine 2020-02-04 Completed [facility] Recombinant 00:00:00 [facility] Twinrix (hep a/hep 2020-02-04 Completed [facility] b) 00:00:00 [facility] Zoster Vaccine 2020-02-04 Completed [facility] Recombinant 00:00:00 [facility] Twinrix (hep a/hep 2020-02-04 Completed [facility] b) 00:00:00 [facility] Zoster Vaccine 2020-02-04 Completed [facility] Recombinant 00:00:00 [facility] Twinrix (hep a/hep 2020-02-04 Completed [facility] b) 00:00:00 [facility] Zoster Vaccine 2020-02-04 Completed [facility] Recombinant 00:00:00 [facility] Twinrix (hep a/hep 2020-02-04 Completed [facility] b) 00:00:00 [facility] Zoster Vaccine 2020-02-04 Completed [facility] Recombinant 00:00:00 [facility] Twinrix (hep a/hep 2020-02-04 Completed [facility] b) 00:00:00 [facility] Zoster Vaccine 2020-02-04 Completed [facility] Recombinant 00:00:00 [facility] Twinrix (hep a/hep 2020-02-04 Completed [facility] b) 00:00:00 [facility] Zoster Vaccine 2020-02-04 Completed [facility] Recombinant 00:00:00 [facility] Twinrix (hep a/hep 2020-02-04 Completed [facility] b) 00:00:00 [facility] Zoster Vaccine 2020-02-04 Completed [facility] Recombinant 00:00:00 [facility] Twinrix (hep a/hep 2020-02-04 Completed [facility] b) 00:00:00 [facility] Zoster Vaccine 2020-02-04 Completed [facility] Recombinant 00:00:00 [facility] Twinrix (hep a/hep 2020-02-04 Completed [facility] b) 00:00:00 [facility] Zoster Vaccine 2020-02-04 Completed [facility] Recombinant 00:00:00 [facility] Twinrix (hep a/hep 2020-02-04 Completed [facility] b) 00:00:00 [facility] Zoster Vaccine 2020-02-04 Completed [facility] Recombinant 00:00:00 [facility] Twinrix (hep a/hep 2020-02-04 Completed [facility] b) 00:00:00 [facility] Zoster Vaccine 2020-02-04 Completed [facility] Recombinant 00:00:00 [facility] Twinrix (hep a/hep 2020-02-04 Completed [facility] b) 00:00:00 [facility] Zoster Vaccine 2020-02-04 Completed [facility] Recombinant 00:00:00 [facility] Twinrix (hep a/hep 2020-02-04 Completed [facility] b) 00:00:00 [facility] Zoster Vaccine 2020-02-04 Completed [facility] Recombinant 00:00:00 [facility] Twinrix (hep a/hep 2020-02-04 Completed [facility] b) 00:00:00 [facility] Zoster Vaccine 2020-02-04 Completed [facility] Recombinant 00:00:00 [facility] Twinrix (hep a/hep 2020-02-04 Completed [facility] b) 00:00:00 [facility] Zoster Vaccine 2020-02-04 Completed [facility] Recombinant 00:00:00 [facility] Twinrix (hep a/hep 2020-02-04 Completed [facility] b) 00:00:00 [facility] Zoster Vaccine 2020-02-04 Completed [facility] Recombinant 00:00:00 [facility] Twinrix (hep a/hep 2020-02-04 Completed [facility] b) 00:00:00 [facility] Zoster Vaccine 2020-02-04 Completed [facility] Recombinant 00:00:00 [facility] Twinrix (hep a/hep 2020-02-04 Completed [facility] b) 00:00:00 [facility] Zoster Vaccine 2020-02-04 Completed [facility] Recombinant 00:00:00 [facility] Twinrix (hep a/hep 2020-02-04 Completed [facility] b) 00:00:00 [facility] Zoster Vaccine 2020-02-04 Completed [facility] Recombinant 00:00:00 [facility] Twinrix (hep a/hep 2020-02-04 Completed [facility] b) 00:00:00 [facility] Zoster Vaccine 2020-02-04 Completed [facility] Recombinant 00:00:00 [facility] Twinrix (hep a/hep 2020-02-04 Completed [facility] b) 00:00:00 [facility] Zoster Vaccine 2020-02-04 Completed [facility] Recombinant 00:00:00 [facility] Twinrix (hep a/hep 2020-02-04 Completed [facility] b) 00:00:00 [facility] Zoster Vaccine 2020-02-04 Completed [facility] Recombinant 00:00:00 [facility] Twinrix (hep a/hep 2020-02-04 Completed [facility] b) 00:00:00 [facility] Zoster Vaccine 2020-02-04 Completed [facility] Recombinant 00:00:00 [facility] Twinrix (hep a/hep 2020-02-04 Completed [facility] b) 00:00:00 [facility] Zoster Vaccine 2020-02-04 Completed [facility] Recombinant 00:00:00 [facility] Twinrix (hep a/hep 2020-02-04 Completed [facility] b) 00:00:00 [facility] Zoster Vaccine 2020-02-04 Completed [facility] Recombinant 00:00:00 [facility] Twinrix (hep a/hep 2020-02-04 Completed [facility] b) 00:00:00 [facility] Zoster Vaccine 2020-02-04 Completed [facility] Recombinant 00:00:00 [facility] Twinrix (hep a/hep 2020-02-04 Completed [facility] b) 00:00:00 [facility] Zoster Vaccine 2020-02-04 Completed [facility] Recombinant 00:00:00 [facility] Twinrix (hep a/hep 2020-02-04 Completed [facility] b) 00:00:00 [facility] Zoster Vaccine 2020-02-04 Completed [facility] Recombinant 00:00:00 [facility] Twinrix (hep a/hep 2020-02-04 Completed [facility] b) 00:00:00 [facility] Zoster Vaccine 2020-02-04 Completed [facility] Recombinant 00:00:00 [facility] Twinrix (hep a/hep 2020-02-04 Completed [facility] b) 00:00:00 [facility] Zoster Vaccine 2020-02-04 Completed [facility] Recombinant 00:00:00 [facility] Twinrix (hep a/hep 2020-02-04 Completed [facility] b) 00:00:00 [facility] Zoster Vaccine 2020-02-04 Completed [facility] Recombinant 00:00:00 [facility] Twinrix (hep a/hep 2020-02-04 Completed [facility] b) 00:00:00 [facility] Zoster Vaccine 2020-02-04 Completed [facility] Recombinant 00:00:00 [facility] Twinrix (hep a/hep 2020-02-04 Completed [facility] b) 00:00:00 [facility] Zoster Vaccine 2020-02-04 Completed [facility] Recombinant 00:00:00 [facility] Twinrix (hep a/hep 2020-02-04 Completed [facility] b) 00:00:00 [facility] Zoster Vaccine 2020-02-04 Completed [facility] Recombinant 00:00:00 [facility] Twinrix (hep a/hep 2020-02-04 Completed [facility] b) 00:00:00 [facility] Zoster Vaccine 2020-02-04 Completed [facility] Recombinant 00:00:00 [facility] Twinrix (hep a/hep 2020-02-04 Completed [facility] b) 00:00:00 [facility] Zoster Vaccine 2020-02-04 Completed [facility] Recombinant 00:00:00 [facility] Twinrix (hep a/hep 2020-02-04 Completed [facility] b) 00:00:00 [facility] Zoster Vaccine 2020-02-04 Completed [facility] Recombinant 00:00:00 [facility] Twinrix (hep a/hep 2020-02-04 Completed [facility] b) 00:00:00 [facility] Zoster Vaccine 2020-02-04 Completed [facility] Recombinant 00:00:00 [facility] Twinrix (hep a/hep 2020-02-04 Completed [facility] b) 00:00:00 [facility] Zoster Vaccine 2020-02-04 Completed [facility] Recombinant 00:00:00 [facility] Twinrix (hep a/hep 2020-02-04 Completed [facility] b) 00:00:00 [facility] Zoster Vaccine 2020-02-04 Completed [facility] Recombinant 00:00:00 [facility] Twinrix (hep a/hep 2020-02-04 Completed [facility] b) 00:00:00 [facility] Zoster Vaccine 2020-02-04 Completed [facility] Recombinant 00:00:00 [facility] Twinrix (hep a/hep 2020-02-04 Completed [facility] b) 00:00:00 [facility] Zoster Vaccine 2020-02-04 Completed [facility] Recombinant 00:00:00 [facility] Twinrix (hep a/hep 2020-02-04 Completed [facility] b) 00:00:00 [facility] Zoster Vaccine 2020-02-04 Completed [facility] Recombinant 00:00:00 [facility] Twinrix (hep a/hep 2020-02-04 Completed [facility] b) 00:00:00 [facility] Zoster Vaccine 2020-02-04 Completed [facility] Recombinant 00:00:00 [facility] Twinrix (hep a/hep 2020-02-04 Completed [facility] b) 00:00:00 [facility] Zoster Vaccine 2020-02-04 Completed [facility] Recombinant 00:00:00 [facility] Twinrix (hep a/hep 2020-02-04 Completed [facility] b) 00:00:00 [facility] Zoster Vaccine 2020-02-04 Completed [facility] Recombinant 00:00:00 [facility] Twinrix (hep a/hep 2020-02-04 Completed [facility] b) 00:00:00 [facility] Zoster Vaccine 2020-02-04 Completed [facility] Recombinant 00:00:00 [facility] Twinrix (hep a/hep 2020-02-04 Completed [facility] b) 00:00:00 [facility] Zoster Vaccine 2020-02-04 Completed [facility] Recombinant 00:00:00 [facility] Twinrix (hep a/hep 2020-02-04 Completed [facility] b) 00:00:00 [facility] Zoster Vaccine 2020-02-04 Completed [facility] Recombinant 00:00:00 [facility] Twinrix (hep a/hep 2020-02-04 Completed [facility] b) 00:00:00 [facility] Zoster Vaccine 2020-02-04 Completed [facility] Recombinant 00:00:00 [facility] Twinrix (hep a/hep 2020-02-04 Completed [facility] b) 00:00:00 [facility] Zoster Vaccine 2020-02-04 Completed [facility] Recombinant 00:00:00 [facility] Twinrix (hep a/hep 2020-02-04 Completed [facility] b) 00:00:00 [facility] Zoster Vaccine 2020-02-04 Completed [facility] Recombinant 00:00:00 [facility] Twinrix (hep a/hep 2020-02-04 Completed [facility] b) 00:00:00 [facility] Zoster Vaccine 2020-02-04 Completed [facility] Recombinant 00:00:00 [facility] Twinrix (hep a/hep 2020-02-04 Completed [facility] b) 00:00:00 [facility] Zoster Vaccine 2020-02-04 Completed [facility] Recombinant 00:00:00 [facility] Twinrix (hep a/hep 2020-02-04 Completed [facility] b) 00:00:00 [facility] Zoster Vaccine 2020-02-04 Completed [facility] Recombinant 00:00:00 [facility] Twinrix (hep a/hep 2020-02-04 Completed [facility] b) 00:00:00 [facility] Zoster Vaccine 2020-02-04 Completed [facility] Recombinant 00:00:00 [facility] Twinrix (hep a/hep 2020-02-04 Completed [facility] b) 00:00:00 [facility] Zoster Vaccine 2020-02-04 Completed [facility] Recombinant 00:00:00 [facility] Twinrix (hep a/hep 2020-02-04 Completed [facility] b) 00:00:00 [facility] Zoster Vaccine 2020-02-04 Completed [facility] Recombinant 00:00:00 [facility] Twinrix (hep a/hep 2020-02-04 Completed [facility] b) 00:00:00 [facility] Zoster Vaccine 2020-02-04 Completed [facility] Recombinant 00:00:00 [facility] Twinrix (hep a/hep 2020-02-04 Completed [facility] b) 00:00:00 [facility] Zoster Vaccine 2020-02-04 Completed [facility] Recombinant 00:00:00 [facility] Twinrix (hep a/hep 2020-02-04 Completed [facility] b) 00:00:00 [facility] Zoster Vaccine 2020-02-04 Completed [facility] Recombinant 00:00:00 [facility] Twinrix (hep a/hep 2020-02-04 Completed [facility] b) 00:00:00 [facility] Zoster Vaccine 2020-02-04 Completed [facility] Recombinant 00:00:00 [facility] Twinrix (hep a/hep 2020-02-04 Completed [facility] b) 00:00:00 [facility] Zoster Vaccine 2020-02-04 Completed [facility] Recombinant 00:00:00 [facility] Twinrix (hep a/hep 2020-02-04 Completed [facility] b) 00:00:00 [facility] Zoster Vaccine 2020-02-04 Completed [facility] Recombinant 00:00:00 [facility] Twinrix (hep a/hep 2020-02-04 Completed [facility] b) 00:00:00 [facility] Zoster Vaccine 2020-02-04 Completed [facility] Recombinant 00:00:00 [facility] Twinrix (hep a/hep 2020-02-04 Completed [facility] b) 00:00:00 [facility] Zoster Vaccine 2020-02-04 Completed [facility] Recombinant 00:00:00 [facility] Twinrix (hep a/hep 2020-02-04 Completed [facility] b) 00:00:00 [facility] Zoster Vaccine 2020-02-04 Completed [facility] Recombinant 00:00:00 [facility] Twinrix (hep a/hep 2020-02-04 Completed [facility] b) 00:00:00 [facility] Zoster Vaccine 2020-02-04 Completed [facility] Recombinant 00:00:00 [facility] Twinrix (hep a/hep 2020-02-04 Completed [facility] b) 00:00:00 [facility] Zoster Vaccine 2020-02-04 Completed [facility] Recombinant 00:00:00 [facility] Twinrix (hep a/hep 2020-02-04 Completed [facility] b) 00:00:00 [facility] Zoster Vaccine 2020-02-04 Completed [facility] Recombinant 00:00:00 [facility] Twinrix (hep a/hep 2020-02-04 Completed [facility] b) 00:00:00 [facility] Zoster Vaccine 2020-02-04 Completed [facility] Recombinant 00:00:00 [facility] Twinrix (hep a/hep 2020-02-04 Completed [facility] b) 00:00:00 [facility] Zoster Vaccine 2020-02-04 Completed [facility] Recombinant 00:00:00 [facility] Twinrix (hep a/hep 2020-02-04 Completed [facility] b) 00:00:00 [facility] Zoster Vaccine 2020-02-04 Completed [facility] Recombinant 00:00:00 [facility] Twinrix (hep a/hep 2020-02-04 Completed [facility] b) 00:00:00 [facility] Zoster Vaccine 2020-02-04 Completed [facility] Recombinant 00:00:00 [facility] Twinrix (hep a/hep 2020-02-04 Completed [facility] b) 00:00:00 [facility] Zoster Vaccine 2020-02-04 Completed [facility] Recombinant 00:00:00 [facility] Twinrix (hep a/hep 2020-02-04 Completed [facility] b) 00:00:00 [facility] Zoster Vaccine 2020-02-04 Completed [facility] Recombinant 00:00:00 [facility] Twinrix (hep a/hep 2020-02-04 Completed [facility] b) 00:00:00 [facility] Zoster Vaccine 2020-02-04 Completed [facility] Recombinant 00:00:00 [facility] Twinrix (hep a/hep 2020-02-04 Completed [facility] b) 00:00:00 [facility] Zoster Vaccine 2020-02-04 Completed [facility] Recombinant 00:00:00 [facility] Twinrix (hep a/hep 2019-10-04 Completed [facility] b) 00:00:00 [facility] Twinrix (hep a/hep 2019-10-04 Completed [facility] b) 00:00:00 [facility] Twinrix (hep a/hep 2019-10-04 Completed [facility] b) 00:00:00 [facility] Twinrix (hep a/hep 2019-10-04 Completed [facility] b) 00:00:00 [facility] Twinrix (hep a/hep 2019-10-04 Completed [facility] b) 00:00:00 [facility] Twinrix (hep a/hep 2019-10-04 Completed [facility] b) 00:00:00 [facility] Twinrix (hep a/hep 2019-10-04 Completed [facility] b) 00:00:00 [facility] Twinrix (hep a/hep 2019-10-04 Completed [facility] b) 00:00:00 [facility] Twinrix (hep a/hep 2019-10-04 Completed Univer sity of b) 00:00:00 [facility] Twinrix (hep a/hep 2019-10-04 Completed Univer sity of b) 00:00:00 [facility] Twinrix (hep a/hep 2019-10-04 Completed Univer sity of b) 00:00:00 [facility] Twinrix (hep a/hep 2019-10-04 Completed [facility]iver sity of b) 00:00:00 [facility] Twinrix (hep a/hep 2019-10-04 Completed [facility] sity of b) 00:00:00 [facility] Twinrix (hep a/hep 2019-10-04 Completed Univer sity of b) 00:00:00 [facility] Twinrix (hep a/hep 2019-10-04 Completed Univer sity of b) 00:00:00 [facility] Twinrix (hep a/hep 2019-10-04 Completed [facility] sity of b) 00:00:00 [facility] Twinrix (hep a/hep 2019-10-04 Completed [facility] s[facility] of b) 00:00:00 [facility] Twinrix (hep a/hep 2019-10-04 Completed [facility] s[facility] of b) 00:00:00 [facility] Twinrix (hep a/hep 2019-10-04 Completed [facility] s[facility] of b) 00:00:00 [facility] Twinrix (hep a/hep 2019-10-04 Completed [facility] of b) 00:00:00 [facility] Twinrix (hep a/hep 2019-10-04 Completed [facility]iver sity of b) 00:00:00 [facility] Twinrix (hep a/hep 2019-10-04 Completed [facility] sity of b) 00:00:00 [facility] Twinrix (hep a/hep 2019-10-04 Completed [facility] of b) 00:00:00 [facility] Twinrix (hep a/hep 2019-10-04 Completed [facility] sity of b) 00:00:00 [facility] Twinrix (hep a/hep 2019-10-04 Completed [facility] sity of b) 00:00:00 [facility] Twinrix (hep a/hep 2019-10-04 Completed [facility] sity of b) 00:00:00 [facility] Twinrix (hep a/hep 2019-10-04 Completed [facility] sity of b) 00:00:00 [facility] Twinrix (hep a/hep 2019-10-04 Completed [facility] s[facility] of b) 00:00:00 [facility] Twinrix (hep a/hep 2019-10-04 Completed [facility] s[facility] of b) 00:00:00 [facility] Twinrix (hep a/hep 2019-10-04 Completed [facility] sity of b) 00:00:00 [facility] Twinrix (hep a/hep 2019-10-04 Completed Univer sity of b) 00:00:00 [facility] Twinrix (hep a/hep 2019-10-04 Completed [facility] sity of b) 00:00:00 [facility] Twinrix (hep a/hep 2019-10-04 Completed [facility] sity of b) 00:00:00 [facility] Twinrix (hep a/hep 2019-10-04 Completed [facility] sity of b) 00:00:00 [facility] Twinrix (hep a/hep 2019-10-04 Completed [facility] sity of b) 00:00:00 [facility] Twinrix (hep a/hep 2019-10-04 Completed [facility]iver sity of b) 00:00:00 [facility] Twinrix (hep a/hep 2019-10-04 Completed [facility]iver sity of b) 00:00:00 [facility] Twinrix (hep a/hep 2019-10-04 Completed [facility]iver sity of b) 00:00:00 [facility] Twinrix (hep a/hep 2019-10-04 Completed [facility]iver sity of b) 00:00:00 [facility] Twinrix (hep a/hep 2019-10-04 Completed [facility] s[facility] of b) 00:00:00 [facility] Twinrix (hep a/hep 2019-10-04 Completed [facility] sity of b) 00:00:00 [facility] Twinrix (hep a/hep 2019-10-04 Completed [facility] of b) 00:00:00 [facility] Twinrix (hep a/hep 2019-10-04 Completed Univer sity of b) 00:00:00 [facility] Twinrix (hep a/hep 2019-10-04 Completed [facility] s[facility] of b) 00:00:00 [facility] Twinrix (hep a/hep 2019-10-04 Completed Univer sity of b) 00:00:00 [facility] Twinrix (hep a/hep 2019-10-04 Completed [facility] sity of b) 00:00:00 [facility] Twinrix (hep a/hep 2019-10-04 Completed [facility] s[facility] of b) 00:00:00 [facility] Twinrix (hep a/hep 2019-10-04 Completed Univer sity of b) 00:00:00 [facility] Twinrix (hep a/hep 2019-10-04 Completed [facility]iver sity of b) 00:00:00 [facility] Twinrix (hep a/hep 2019-10-04 Completed Univer sity of b) 00:00:00 [facility] Twinrix (hep a/hep 2019-10-04 Completed [facility]iver sity of b) 00:00:00 [facility] Twinrix (hep a/hep 2019-10-04 Completed [facility] sity of b) 00:00:00 [facility] Twinrix (hep a/hep 2019-10-04 Completed [facility] of b) 00:00:00 [facility] Twinrix (hep a/hep 2019-10-04 Completed [facility] s[facility] of b) 00:00:00 [facility] Twinrix (hep a/hep 2019-10-04 Completed Univer sity of b) 00:00:00 [facility] Twinrix (hep a/hep 2019-10-04 Completed [facility] s[facility] of b) 00:00:00 [facility] Twinrix (hep a/hep 2019-10-04 Completed Univer sity of b) 00:00:00 [facility] Twinrix (hep a/hep 2019-10-04 Completed [facility] of b) 00:00:00 [facility] Twinrix (hep a/hep 2019-10-04 Completed [facility]iver sity of b) 00:00:00 [facility] Twinrix (hep a/hep 2019-10-04 Completed [facility] sity of b) 00:00:00 [facility] Twinrix (hep a/hep 2019-10-04 Completed [facility] sity of b) 00:00:00 [facility] Twinrix (hep a/hep 2019-10-04 Completed [facility] sity of b) 00:00:00 [facility] Twinrix (hep a/hep 2019-10-04 Completed [facility]iver sity of b) 00:00:00 [facility] Twinrix (hep a/hep 2019-10-04 Completed [facility] of b) 00:00:00 [facility] Twinrix (hep a/hep 2019-10-04 Completed [facility]iver sity of b) 00:00:00 [facility] Twinrix (hep a/hep 2019-10-04 Completed [facility] sity of b) 00:00:00 [facility] Twinrix (hep a/hep 2019-10-04 Completed Univer sity of b) 00:00:00 [facility] Twinrix (hep a/hep 2019-10-04 Completed [facility] sity of b) 00:00:00 [facility] Twinrix (hep a/hep 2019-10-04 Completed [facility] of b) 00:00:00 [facility] Twinrix (hep a/hep 2019-10-04 Completed Univer sity of b) 00:00:00 [facility] Twinrix (hep a/hep 2019-10-04 Completed [facility] of b) 00:00:00 [facility] Twinrix (hep a/hep 2019-10-04 Completed Univer sity of b) 00:00:00 [facility] Twinrix (hep a/hep 2019-10-04 Completed [facility] s[facility] of b) 00:00:00 [facility] Twinrix (hep a/hep 2019-10-04 Completed Univer sity of b) 00:00:00 [facility] Twinrix (hep a/hep 2019-10-04 Completed [facility] of b) 00:00:00 [facility] Twinrix (hep a/hep 2019-10-04 Completed Univer sity of b) 00:00:00 [facility] Twinrix (hep a/hep 2019-10-04 Completed [facility] sity of b) 00:00:00 [facility] Twinrix (hep a/hep 2019-10-04 Completed [facility] s[facility] of b) 00:00:00 [facility] Twin[facility] (hep a/hep 2019-10-04 Completed [facility] of b) 00:00:00 [facility] Twinrix (hep a/hep 2019-10-04 Completed [facility] of b) 00:00:00 [facility] Twinrix (hep a/hep 2019-10-04 Completed [facility]iver sity of b) 00:00:00 [facility] Twinrix (hep a/hep 2019-10-04 Completed [facility]iver sity of b) 00:00:00 [facility] Twinrix (hep a/hep 2019-10-04 Completed [facility]iver sity of b) 00:00:00 [facility] Twinrix (hep a/hep 2019-10-04 Completed [facility] sity of b) 00:00:00 [facility] Twin[facility] (hep a/hep 2019-10-04 Completed [facility]iver sity of b) 00:00:00 [facility] Twin[facility] (hep a/hep 2019-10-04 Completed [facility] sity of b) 00:00:00 [facility] Twin[facility] (hep a/hep 2019-10-04 Completed [facility] of b) 00:00:00 [facility] Twinrix (hep a/hep 2019-10-04 Completed [facility] s[facility] of b) 00:00:00 [facility] Twinrix (hep a/hep 2019-10-04 Completed [facility] s[facility] of b) 00:00:00 [facility] Twinrix (hep a/hep 2019-10-04 Completed [facility] s[facility] of b) 00:00:00 [facility] Twinrix (hep a/hep 2019-10-04 Completed [facility] of b) 00:00:00 [facility] Twinrix (hep a/hep 2019-10-04 Completed [facility] of b) 00:00:00 [facility] Twinrix (hep a/hep 2019-10-04 Completed [facility] of b) 00:00:00 [facility] Twinrix (hep a/hep 2019-10-04 Completed [facility] sity of b) 00:00:00 [facility] Twin[facility] (hep a/hep 2019-10-04 Completed [facility] of b) 00:00:00 [facility] Twinrix (hep a/hep 2019-10-04 Completed [facility] of b) 00:00:00 [facility] Twinrix (hep a/hep 2019-10-04 Completed [facility] of b) 00:00:00 [facility] Twinrix (hep a/hep 2019-10-04 Completed [facility] of b) 00:00:00 [facility] Twinrix (hep a/hep 2019-10-04 Completed [facility] sity of b) 00:00:00 [facility] Twinrix (hep a/hep 2019-10-04 Completed Univer sity of b) 00:00:00 [facility] Twinrix (hep a/hep 2019-10-04 Completed Univer sity of b) 00:00:00 [facility] Twinrix (hep a/hep 2019-10-04 Completed [facility] sity of b) 00:00:00 [facility] Twin[facility] (hep a/hep 2019-10-04 Completed [facility] sity of b) 00:00:00 [facility] Twin[facility] (hep a/hep 2019-10-04 Completed [facility] s[facility] of b) 00:00:00 [facility] Twin[facility] (hep a/hep 2019-10-04 Completed [facility] b) 00:00:00 [facility] Twinrix (hep a/hep 2019-10-04 Completed [facility] sity of b) 00:00:00 [facility] Twin[facility] (hep a/hep 2019-10-04 Completed [facility]iver sity of b) 00:00:00 [facility] Twinrix (hep a/hep 2019-10-04 Completed [facility] sity of b) 00:00:00 [facility] Twinrix (hep a/hep 2019-10-04 Completed [facility] sity of b) 00:00:00 [facility] Twin[facility] (hep a/hep 2019-10-04 Completed [facility] of b) 00:00:00 [facility] Twinrix (hep a/hep 2019-10-04 Completed [facility] of b) 00:00:00 [facility] Td 2019-08-14 Completed [facility] 00:00:00 [facility] Td 2019-08-14 Completed [facility] 00:00:00 [facility] Td 2019-08-14 Completed [facility] 00:00:00 [facility] Td 2019-08-14 Completed [facility] 00:00:00 [facility] Td 2019-08-14 Completed [facility] 00:00:00 [facility] Td 2019-08-14 Completed [facility] 00:00:00 [facility] Td 2019-08-14 Completed [facility] 00:00:00 [facility] Td 2019-08-14 Completed [facility] 00:00:00 [facility] Td 2019-08-14 Completed [facility] 00:00:00 [facility] Td 2019-08-14 Completed [facility] 00:00:00 [facility] Td 2019-08-14 Completed [facility] 00:00:00 [facility] Td 2019-08-14 Completed [facility] 00:00:00 [facility] Td 2019-08-14 Completed [facility] 00:00:00 [facility] Td 2019-08-14 Completed [facility] 00:00:00 [facility] Td 2019-08-14 Completed [facility] 00:00:00 [facility] Td 2019-08-14 Completed [facility] 00:00:00 [facility] Td 2019-08-14 Completed [facility] 00:00:00 [facility] Td 2019-08-14 Completed [facility] 00:00:00 [facility] Td 2019-08-14 Completed [facility] 00:00:00 [facility] Td 2019-08-14 Completed [facility] 00:00:00 [facility] Td 2019-08-14 Completed [facility] 00:00:00 [facility] Td 2019-08-14 Completed [facility] 00:00:00 [facility] Td 2019-08-14 Completed [facility] 00:00:00 [facility] Td 2019-08-14 Completed [facility] 00:00:00 [facility] Td 2019-08-14 Completed [facility] 00:00:00 [facility] Td 2019-08-14 Completed [facility] 00:00:00 [facility] Td 2019-08-14 Completed [facility] 00:00:00 [facility] Td 2019-08-14 Completed [facility] 00:00:00 [facility] Td 2019-08-14 Completed [facility] 00:00:00 [facility] Td 2019-08-14 Completed [facility] 00:00:00 [facility] Td 2019-08-14 Completed [facility] 00:00:00 [facility] Td 2019-08-14 Completed [facility] 00:00:00 [facility] Td 2019-08-14 Completed [facility] 00:00:00 [facility] Td 2019-08-14 Completed [facility] 00:00:00 [facility] Td 2019-08-14 Completed [facility] 00:00:00 [facility] Td 2019-08-14 Completed [facility] 00:00:00 [facility] Td 2019-08-14 Completed [facility] 00:00:00 [facility] Td 2019-08-14 Completed [facility] 00:00:00 [facility] Td 2019-08-14 Completed [facility] 00:00:00 [facility] Td 2019-08-14 Completed [facility] 00:00:00 [facility] Td 2019-08-14 Completed [facility] 00:00:00 [facility] Td 2019-08-14 Completed [facility] 00:00:00 [facility] Td 2019-08-14 Completed [facility] 00:00:00 [facility] Td 2019-08-14 Completed [facility] 00:00:00 [facility] Td 2019-08-14 Completed [facility] 00:00:00 [facility] Td 2019-08-14 Completed [facility] 00:00:00 [facility] Td 2019-08-14 Completed [facility] 00:00:00 [facility] Td 2019-08-14 Completed [facility] 00:00:00 [facility] Td 2019-08-14 Completed [facility] 00:00:00 [facility] Td 2019-08-14 Completed [facility] 00:00:00 [facility] Td 2019-08-14 Completed [facility] 00:00:00 [facility] TD, NOS 2019-08-14 Completed [facility] 00:00:00 [facility] TD, NOS 2019-08-14 Completed [facility] 00:00:00 [facility] TD, NOS 2019-08-14 Completed [facility] 00:00:00 [facility] TD, NOS 2019-08-14 Completed [facility] 00:00:00 [facility] TD, NOS 2019-08-14 Completed [facility] 00:00:00 [facility] TD, NOS 2019-08-14 Completed [facility] 00:00:00 [facility] TD, NOS 2019-08-14 Completed [facility] 00:00:00 [facility] TD, NOS 2019-08-14 Completed [facility] 00:00:00 [facility] TD, NOS 2019-08-14 Completed [facility] 00:00:00 [facility] TD, NOS 2019-08-14 Completed [facility] 00:00:00 [facility] TD, NOS 2019-08-14 Completed [facility] 00:00:00 [facility] TD, NOS 2019-08-14 Completed [facility] 00:00:00 [facility] TD, NOS 2019-08-14 Completed [facility] 00:00:00 [facility] TD, NOS 2019-08-14 Completed [facility] 00:00:00 [facility] TD, NOS 2019-08-14 Completed [facility] 00:00:00 [facility] TD, NOS 2019-08-14 Completed [facility] 00:00:00 [facility] TD, NOS 2019-08-14 Completed [facility] 00:00:00 [facility] TD, NOS 2019-08-14 Completed [facility] 00:00:00 [facility] TD, NOS 2019-08-14 Completed [facility] 00:00:00 [facility] TD, NOS 2019-08-14 Completed [facility] 00:00:00 [facility] TD, NOS 2019-08-14 Completed [facility] 00:00:00 [facility] TD, NOS 2019-08-14 Completed [facility] 00:00:00 [facility] TD, NOS 2019-08-14 Completed [facility] 00:00:00 [facility] TD, NOS 2019-08-14 Completed [facility] 00:00:00 [facility] TD, NOS 2019-08-14 Completed [facility] 00:00:00 [facility] TD, NOS 2019-08-14 Completed [facility] 00:00:00 [facility] TD, NOS 2019-08-14 Completed [facility] 00:00:00 [facility] TD, NOS 2019-08-14 Completed [facility] 00:00:00 [facility] TD, NOS 2019-08-14 Completed [facility] 00:00:00 [facility] TD, NOS 2019-08-14 Completed [facility] 00:00:00 [facility] TD, NOS 2019-08-14 Completed [facility] 00:00:00 [facility] TD, NOS 2019-08-14 Completed [facility] 00:00:00 [facility] TD, NOS 2019-08-14 Completed [facility] 00:00:00 [facility] TD, NOS 2019-08-14 Completed [facility] 00:00:00 [facility] TD, NOS 2019-08-14 Completed [facility] 00:00:00 [facility] TD, NOS 2019-08-14 Completed [facility] 00:00:00 [facility] TD, NOS 2019-08-14 Completed [facility] 00:00:00 [facility] TD, NOS 2019-08-14 Completed [facility] 00:00:00 [facility] TD, NOS 2019-08-14 Completed [facility] 00:00:00 [facility] TD, NOS 2019-08-14 Completed [facility] 00:00:00 [facility] TD, NOS 2019-08-14 Completed [facility] 00:00:00 [facility] TD, NOS 2019-08-14 Completed [facility] 00:00:00 [facility] TD, NOS 2019-08-14 Completed [facility] 00:00:00 [facility] TD, NOS 2019-08-14 Completed [facility] 00:00:00 [facility] TD, NOS 2019-08-14 Completed [facility] 00:00:00 [facility] TD, NOS 2019-08-14 Completed [facility] 00:00:00 [facility] TD, NOS 2019-08-14 Completed [facility] 00:00:00 [facility] TD, NOS 2019-08-14 Completed [facility] 00:00:00 [facility] TD, NOS 2019-08-14 Completed [facility] 00:00:00 [facility] TD, NOS 2019-08-14 Completed [facility] 00:00:00 [facility] TD, NOS 2019-08-14 Completed [facility] 00:00:00 [facility] TD, NOS 2019-08-14 Completed [facility] 00:00:00 [facility] TD, NOS 2019-08-14 Completed [facility] 00:00:00 [facility] TD, NOS 2019-08-14 Completed [facility] 00:00:00 [facility] TD, NOS 2019-08-14 Completed [facility] 00:00:00 [facility] TD, NOS 2019-08-14 Completed [facility] 00:00:00 [facility] TD, NOS 2019-08-14 Completed [facility] 00:00:00 [facility] TD, NOS 2019-08-14 Completed [facility] 00:00:00 [facility] TD, NOS 2019-08-14 Completed [facility] of 00:00:00 [facility] TD, NOS 2019-08-14 Completed [facility] 00:00:00 [facility] Influenza Virus 2019-08-01 Completed Universit y of Vaccine Recomb Quad 00:00:00 [facility] IM, Preserv and ABX Branc h Free 18-64 YRS Twinrix (hep a/hep 2019-08-01 Completed [facility]iver sity of b) 00:00:00 [facility] Influenza Virus 2019-08-01 Completed [facility] Vaccine Recomb Quad 00:00:00 [facility], Preserv and ABX Branc h Free 18-64 YRS Twinrix (hep a/hep 2019-08-01 Completed [facility]iver sity of b) 00:00:00 [facility] Influenza Virus 2019-08-01 Completed [facility] Vaccine Recomb Quad 00:00:00 [facility], Preserv and ABX Branc h Free 18-64 YRS Twinrix (hep a/hep 2019-08-01 Completed [facility]ity of b) 00:00:00 [facility] Influenza Virus 2019-08-01 Completed [facility] of Vaccine Recomb Quad 00:00:00 [facility], Preserv and ABX Branc h Free 18-64 YRS Twinrix (hep a/hep 2019-08-01 Completed [facility]iver sity of b) 00:00:00 [facility] Influenza Virus 2019-08-01 Completed [facility] of Vaccine Recomb Quad 00:00:00 [facility], Preserv and ABX Branc h Free 18-64 YRS Twinrix (hep a/hep 2019-08-01 Completed [facility] sity of b) 00:00:00 [facility] Influenza Virus 2019-08-01 Completed [facility] of Vaccine Recomb Quad 00:00:00 [facility], Preserv and ABX Branc h Free 18-64 YRS Twinrix (hep a/hep 2019-08-01 Completed [facility]iver sity of b) 00:00:00 [facility] Influenza Virus 2019-08-01 Completed [facility] Vaccine Recomb Quad 00:00:00 [facility], Preserv and ABX Branc h Free 18-64 YRS Twinrix (hep a/hep 2019-08-01 Completed [facility]iver sity of b) 00:00:00 [facility] Influenza Virus 2019-08-01 Completed [facility] Vaccine Recomb Quad 00:00:00 [facility], Preserv and ABX Branc h Free 18-64 YRS Twinrix (hep a/hep 2019-08-01 Completed [facility]ity of b) 00:00:00 [facility] Influenza Virus 2019-08-01 Completed [facility] Vaccine Recomb Quad 00:00:00 [facility], Preserv and ABX Branc h Free 18-64 YRS Twinrix (hep a/hep 2019-08-01 Completed [facility]ity of b) 00:00:00 [facility] Influenza Virus 2019-08-01 Completed [facility] Vaccine Recomb Quad 00:00:00 [facility], Preserv and ABX Branc h Free 18-64 YRS Twinrix (hep a/hep 2019-08-01 Completed [facility]ity of b) 00:00:00 [facility] Influenza Virus 2019-08-01 Completed [facility] Vaccine Recomb Quad 00:00:00 [facility], Preserv and ABX Branc h Free 18-64 YRS Twinrix (hep a/hep 2019-08-01 Completed [facility] sity of b) 00:00:00 [facility] Influenza Virus 2019-08-01 Completed [facility] Vaccine Recomb Quad 00:00:00 [facility], Preserv and ABX Branc h Free 18-64 YRS Twinrix (hep a/hep 2019-08-01 Completed [facility]ity of b) 00:00:00 [facility] Influenza Virus 2019-08-01 Completed [facility] Vaccine Recomb Quad 00:00:00 [facility], Preserv and ABX Branc h Free 18-64 YRS Twinrix (hep a/hep 2019-08-01 Completed [facility]ity of b) 00:00:00 [facility] Influenza Virus 2019-08-01 Completed [facility] Vaccine Recomb Quad 00:00:00 [facility], Preserv and ABX Branc h Free 18-64 YRS Twinrix (hep a/hep 2019-08-01 Completed [facility] sity of b) 00:00:00 [facility] Influenza Virus 2019-08-01 Completed [facility] Vaccine Recomb Quad 00:00:00 [facility], Preserv and ABX Branc h Free 18-64 YRS Twinrix (hep a/hep 2019-08-01 Completed [facility]ity of b) 00:00:00 [facility] Influenza Virus 2019-08-01 Completed [facility] Vaccine Recomb Quad 00:00:00 [facility], Preserv and ABX Branc h Free 18-64 YRS Twinrix (hep a/hep 2019-08-01 Completed [facility]ity of b) 00:00:00 [facility] Influenza Virus 2019-08-01 Completed [facility] Vaccine Recomb Quad 00:00:00 [facility], Preserv and ABX Branc h Free 18-64 YRS Twinrix (hep a/hep 2019-08-01 Completed [facility]ity of b) 00:00:00 [facility] Influenza Virus 2019-08-01 Completed [facility] of Vaccine Recomb Quad 00:00:00 [facility], Preserv and ABX Branc h Free 18-64 YRS Twinrix (hep a/hep 2019-08-01 Completed [facility]ity of b) 00:00:00 [facility] Influenza Virus 2019-08-01 Completed [facility] of Vaccine Recomb Quad 00:00:00 [facility], Preserv and ABX Branc h Free 18-64 YRS Twinrix (hep a/hep 2019-08-01 Completed [facility]ity of b) 00:00:00 [facility] Influenza Virus 2019-08-01 Completed [facility] Vaccine Recomb Quad 00:00:00 [facility], Preserv and ABX Branc h Free 18-64 YRS Twinrix (hep a/hep 2019-08-01 Completed [facility]ity of b) 00:00:00 [facility] Influenza Virus 2019-08-01 Completed [facility] Vaccine Recomb Quad 00:00:00 [facility], Preserv and ABX Branc h Free 18-64 YRS Twinrix (hep a/hep 2019-08-01 Completed [facility]ity of b) 00:00:00 [facility] Influenza Virus 2019-08-01 Completed [facility] Vaccine Recomb Quad 00:00:00 [facility], Preserv and ABX Branc h Free 18-64 YRS Twinrix (hep a/hep 2019-08-01 Completed [facility]ity of b) 00:00:00 [facility] Influenza Virus 2019-08-01 Completed [facility] Vaccine Recomb Quad 00:00:00 [facility], Preserv and ABX Branc h Free 18-64 YRS [facility]rix (hep a/hep 2019-08-01 Completed [facility] b) 00:00:00 [facility] [facility] Influenza Virus 2019-08-01 Completed [facility] Quad 00:00:00 [facility], Preserv and ABX Branc h Free 18-64 YRS Twinrix (hep a/hep 2019-08-01 Completed [facility] b) 00:00:00 [facility] Influenza Virus 2019-08-01 Completed [facility] Vaccine Recomb Quad 00:00:00 [facility], Preserv and ABX Branc h Free 18-64 YRS Twinrix (hep a/hep 2019-08-01 Completed [facility] b) 00:00:00 [facility] Influenza Virus 2019-08-01 Completed [facility] Vaccine Recomb Quad 00:00:00 [facility], Preserv and ABX Branc h Free 18-64 YRS Twinrix (hep a/hep 2019-08-01 Completed [facility] b) 00:00:00 [facility] Influenza Virus 2019-08-01 Completed [facility] Vaccine Recomb Quad 00:00:00 [facility], Preserv and ABX Branc h Free 18-64 YRS Twinrix (hep a/hep 2019-08-01 Completed [facility] b) 00:00:00 [facility] Influenza Virus 2019-08-01 Completed [facility] Vaccine Recomb Quad 00:00:00 [facility], Preserv and ABX Branc h Free 18-64 YRS Twinrix (hep a/hep 2019-08-01 Completed [facility] b) 00:00:00 [facility] Influenza Virus 2019-08-01 Completed [facility] Vaccine Recomb Quad 00:00:00 [facility], Preserv and ABX Branc h Free 18-64 YRS Twinrix (hep a/hep 2019-08-01 Completed [facility] b) 00:00:00 [facility] Influenza Virus 2019-08-01 Completed [facility] Vaccine Recomb Quad 00:00:00 [facility], Preserv and ABX Branc h Free 18-64 YRS Twinrix (hep a/hep 2019-08-01 Completed [facility] b) 00:00:00 [facility] Influenza Virus 2019-08-01 Completed [facility] Vaccine Recomb Quad 00:00:00 [facility], Preserv and ABX Branc h Free 18-64 YRS Twinrix (hep a/hep 2019-08-01 Completed [facility] b) 00:00:00 [facility] Influenza Virus 2019-08-01 Completed [facility] Vaccine Recomb Quad 00:00:00 [facility], Preserv and ABX Branc h Free 18-64 YRS Twinrix (hep a/hep 2019-08-01 Completed [facility] b) 00:00:00 [facility] Influenza Virus 2019-08-01 Completed [facility] Vaccine Recomb Quad 00:00:00 [facility], Preserv and ABX Branc h Free 18-64 YRS Twinrix (hep a/hep 2019-08-01 Completed [facility] b) 00:00:00 [facility] Influenza Virus 2019-08-01 Completed [facility] Vaccine Recomb Quad 00:00:00 [facility], Preserv and ABX Branc h Free 18-64 YRS Twinrix (hep a/hep 2019-08-01 Completed [facility] b) 00:00:00 [facility] Influenza Virus 2019-08-01 Completed [facility] Vaccine Recomb Quad 00:00:00 [facility], Preserv and ABX Branc h Free 18-64 YRS Twinrix (hep a/hep 2019-08-01 Completed [facility] b) 00:00:00 [facility] Influenza Virus 2019-08-01 Completed [facility] Vaccine Recomb Quad 00:00:00 [facility], Preserv and ABX Branc h Free 18-64 YRS Twinrix (hep a/hep 2019-08-01 Completed [facility] b) 00:00:00 [facility] Influenza Virus 2019-08-01 Completed [facility] Vaccine Recomb Quad 00:00:00 [facility], Preserv and ABX Branc h Free 18-64 YRS Twinrix (hep a/hep 2019-08-01 Completed [facility] b) 00:00:00 [facility] Influenza Virus 2019-08-01 Completed [facility] Vaccine Recomb Quad 00:00:00 [facility], Preserv and ABX Branc h Free 18-64 YRS Twinrix (hep a/hep 2019-08-01 Completed [facility] b) 00:00:00 [facility] Influenza Virus 2019-08-01 Completed [facility] Vaccine Recomb Quad 00:00:00 [facility], Preserv and ABX Branc h Free 18-64 YRS Twinrix (hep a/hep 2019-08-01 Completed [facility] b) 00:00:00 [facility] Influenza Virus 2019-08-01 Completed [facility] Vaccine Recomb Quad 00:00:00 [facility], Preserv and ABX Branc h Free 18-64 YRS Twinrix (hep a/hep 2019-08-01 Completed [facility] b) 00:00:00 [facility] Influenza Virus 2019-08-01 Completed [facility] Vaccine Recomb Quad 00:00:00 [facility], Preserv and ABX Branc h Free 18-64 YRS Twinrix (hep a/hep 2019-08-01 Completed [facility] b) 00:00:00 [facility] Influenza Virus 2019-08-01 Completed [facility] Vaccine Recomb Quad 00:00:00 [facility], Preserv and ABX Branc h Free 18-64 YRS Twinrix (hep a/hep 2019-08-01 Completed [facility] b) 00:00:00 [facility] Influenza Virus 2019-08-01 Completed [facility] Vaccine Recomb Quad 00:00:00 [facility], Preserv and ABX Branc h Free 18-64 YRS Twinrix (hep a/hep 2019-08-01 Completed [facility] b) 00:00:00 [facility] Influenza Virus 2019-08-01 Completed [facility] Vaccine Recomb Quad 00:00:00 [facility], Preserv and ABX Branc h Free 18-64 YRS Twinrix (hep a/hep 2019-08-01 Completed [facility] b) 00:00:00 [facility] Influenza Virus 2019-08-01 Completed [facility] Vaccine Recomb Quad 00:00:00 [facility], Preserv and ABX Branc h Free 18-64 YRS Twinrix (hep a/hep 2019-08-01 Completed [facility] b) 00:00:00 [facility] Influenza Virus 2019-08-01 Completed [facility] Vaccine Recomb Quad 00:00:00 [facility], Preserv and ABX Branc h Free 18-64 YRS Twinrix (hep a/hep 2019-08-01 Completed [facility] b) 00:00:00 [facility] Influenza Virus 2019-08-01 Completed [facility] Vaccine Recomb Quad 00:00:00 [facility], Preserv and ABX Branc h Free 18-64 YRS Twinrix (hep a/hep 2019-08-01 Completed [facility] b) 00:00:00 [facility] Influenza Virus 2019-08-01 Completed [facility] Vaccine Recomb Quad 00:00:00 [facility], Preserv and ABX Branc h Free 18-64 YRS Twinrix (hep a/hep 2019-08-01 Completed [facility] b) 00:00:00 [facility] Influenza Virus 2019-08-01 Completed [facility] Vaccine Recomb Quad 00:00:00 [facility], Preserv and ABX Branc h Free 18-64 YRS Twinrix (hep a/hep 2019-08-01 Completed [facility] b) 00:00:00 [facility] Influenza Virus 2019-08-01 Completed [facility] Vaccine Recomb Quad 00:00:00 [facility], Preserv and ABX Branc h Free 18-64 YRS Twinrix (hep a/hep 2019-08-01 Completed [facility] b) 00:00:00 [facility] Influenza Virus 2019-08-01 Completed [facility] Vaccine Recomb Quad 00:00:00 [facility], Preserv and ABX Branc h Free 18-64 YRS Twinrix (hep a/hep 2019-08-01 Completed [facility] b) 00:00:00 [facility] Influenza Virus 2019-08-01 Completed [facility] Vaccine Recomb Quad 00:00:00 [facility], Preserv and ABX Branc h Free 18-64 YRS Twinrix (hep a/hep 2019-08-01 Completed [facility] b) 00:00:00 [facility] Influenza Virus 2019-08-01 Completed [facility] Vaccine Recomb Quad 00:00:00 [facility], Preserv and ABX Branc h Free 18-64 YRS Twinrix (hep a/hep 2019-08-01 Completed [facility] b) 00:00:00 [facility] Influenza Virus 2019-08-01 Completed [facility] Vaccine Recomb Quad 00:00:00 [facility], Preserv and ABX Branc h Free 18-64 YRS Twinrix (hep a/hep 2019-08-01 Completed [facility] b) 00:00:00 [facility] Influenza Virus 2019-08-01 Completed [facility] Vaccine Recomb Quad 00:00:00 [facility], Preserv and ABX Branc h Free 18-64 YRS Twinrix (hep a/hep 2019-08-01 Completed [facility] b) 00:00:00 [facility] Influenza Virus 2019-08-01 Completed [facility] Vaccine Recomb Quad 00:00:00 [facility], Preserv and ABX Branc h Free 18-64 YRS Twinrix (hep a/hep 2019-08-01 Completed [facility] b) 00:00:00 [facility] Influenza Virus 2019-08-01 Completed [facility] Vaccine Recomb Quad 00:00:00 [facility], Preserv and ABX Branc h Free 18-64 YRS Twinrix (hep a/hep 2019-08-01 Completed [facility] b) 00:00:00 [facility] Influenza Virus 2019-08-01 Completed [facility] Vaccine Recomb Quad 00:00:00 [facility], Preserv and ABX Branc h Free 18-64 YRS Twinrix (hep a/hep 2019-08-01 Completed [facility] b) 00:00:00 [facility] Influenza Virus 2019-08-01 Completed [facility] Vaccine Recomb Quad 00:00:00 [facility], Preserv and ABX Branc h Free 18-64 YRS Twinrix (hep a/hep 2019-08-01 Completed [facility] b) 00:00:00 [facility] Influenza Virus 2019-08-01 Completed [facility] Vaccine Recomb Quad 00:00:00 [facility], Preserv and ABX Branc h Free 18-64 YRS Twinrix (hep a/hep 2019-08-01 Completed [facility] b) 00:00:00 [facility] Influenza Virus 2019-08-01 Completed [facility] Vaccine Recomb Quad 00:00:00 [facility], Preserv and ABX Branc h Free 18-64 YRS Twinrix (hep a/hep 2019-08-01 Completed [facility] b) 00:00:00 [facility] Influenza Virus 2019-08-01 Completed [facility] Vaccine Recomb Quad 00:00:00 [facility], Preserv and ABX Branc h Free 18-64 YRS Twinrix (hep a/hep 2019-08-01 Completed [facility] b) 00:00:00 [facility] Influenza Virus 2019-08-01 Completed [facility] Vaccine Recomb Quad 00:00:00 [facility], Preserv and ABX Branc h Free 18-64 YRS Twinrix (hep a/hep 2019-08-01 Completed [facility] b) 00:00:00 [facility] Influenza Virus 2019-08-01 Completed [facility] Vaccine Recomb Quad 00:00:00 [facility], Preserv and ABX Branc h Free 18-64 YRS Twinrix (hep a/hep 2019-08-01 Completed [facility] b) 00:00:00 [facility] Influenza Virus 2019-08-01 Completed [facility] Vaccine Recomb Quad 00:00:00 [facility], Preserv and ABX Branc h Free 18-64 YRS Twinrix (hep a/hep 2019-08-01 Completed [facility] b) 00:00:00 [facility] Influenza Virus 2019-08-01 Completed [facility] Vaccine Recomb Quad 00:00:00 [facility], Preserv and ABX Branc h Free 18-64 YRS Twinrix (hep a/hep 2019-08-01 Completed [facility] b) 00:00:00 [facility] Influenza Virus 2019-08-01 Completed [facility] Vaccine Recomb Quad 00:00:00 [facility], Preserv and ABX Branc h Free 18-64 YRS Twinrix (hep a/hep 2019-08-01 Completed [facility] b) 00:00:00 [facility] Influenza Virus 2019-08-01 Completed [facility] Vaccine Recomb Quad 00:00:00 [facility], Preserv and ABX Branc h Free 18-64 YRS Twinrix (hep a/hep 2019-08-01 Completed [facility] b) 00:00:00 [facility] Influenza Virus 2019-08-01 Completed [facility] Vaccine Recomb Quad 00:00:00 [facility], Preserv and ABX Branc h Free 18-64 YRS Twinrix (hep a/hep 2019-08-01 Completed [facility] b) 00:00:00 [facility] Influenza Virus 2019-08-01 Completed [facility] Vaccine Recomb Quad 00:00:00 [facility], Preserv and ABX Branc h Free 18-64 YRS Twinrix (hep a/hep 2019-08-01 Completed [facility] b) 00:00:00 [facility] Influenza Virus 2019-08-01 Completed [facility] Vaccine Recomb Quad 00:00:00 [facility], Preserv and ABX Branc h Free 18-64 YRS Twinrix (hep a/hep 2019-08-01 Completed [facility] b) 00:00:00 [facility] Influenza Virus 2019-08-01 Completed [facility] Vaccine Recomb Quad 00:00:00 [facility], Preserv and ABX Branc h Free 18-64 YRS Twinrix (hep a/hep 2019-08-01 Completed [facility] b) 00:00:00 [facility] Influenza Virus 2019-08-01 Completed [facility] Vaccine Recomb Quad 00:00:00 [facility], Preserv and ABX Branc h Free 18-64 YRS Twinrix (hep a/hep 2019-08-01 Completed [facility] b) 00:00:00 [facility] Influenza Virus 2019-08-01 Completed [facility] Vaccine Recomb Quad 00:00:00 [facility], Preserv and ABX Branc h Free 18-64 YRS Twinrix (hep a/hep 2019-08-01 Completed [facility] b) 00:00:00 [facility] Influenza Virus 2019-08-01 Completed [facility] Vaccine Recomb Quad 00:00:00 [facility], Preserv and ABX Branc h Free 18-64 YRS Twinrix (hep a/hep 2019-08-01 Completed [facility] b) 00:00:00 [facility] Influenza Virus 2019-08-01 Completed [facility] Vaccine Recomb Quad 00:00:00 [facility], Preserv and ABX Branc h Free 18-64 YRS Twinrix (hep a/hep 2019-08-01 Completed [facility] b) 00:00:00 [facility] Influenza Virus 2019-08-01 Completed [facility] Vaccine Recomb Quad 00:00:00 [facility], Preserv and ABX Branc h Free 18-64 YRS Twinrix (hep a/hep 2019-08-01 Completed [facility] b) 00:00:00 [facility] Influenza Virus 2019-08-01 Completed [facility] Vaccine Recomb Quad 00:00:00 [facility], Preserv and ABX Branc h Free 18-64 YRS Twinrix (hep a/hep 2019-08-01 Completed [facility] b) 00:00:00 [facility] Influenza Virus 2019-08-01 Completed [facility] Vaccine Recomb Quad 00:00:00 [facility], Preserv and ABX Branc h Free 18-64 YRS Twinrix (hep a/hep 2019-08-01 Completed [facility] b) 00:00:00 [facility] Influenza Virus 2019-08-01 Completed [facility] Vaccine Recomb Quad 00:00:00 [facility], Preserv and ABX Branc h Free 18-64 YRS Twinrix (hep a/hep 2019-08-01 Completed [facility] b) 00:00:00 [facility] Influenza Virus 2019-08-01 Completed [facility] Vaccine Recomb Quad 00:00:00 [facility], Preserv and ABX Branc h Free 18-64 YRS Twinrix (hep a/hep 2019-08-01 Completed [facility] b) 00:00:00 [facility] Influenza Virus 2019-08-01 Completed [facility] Vaccine Recomb Quad 00:00:00 [facility], Preserv and ABX Branc h Free 18-64 YRS Twinrix (hep a/hep 2019-08-01 Completed [facility] b) 00:00:00 [facility] Influenza Virus 2019-08-01 Completed [facility] Vaccine Recomb Quad 00:00:00 [facility], Preserv and ABX Branc h Free 18-64 YRS Twinrix (hep a/hep 2019-08-01 Completed [facility] b) 00:00:00 [facility] Influenza Virus 2019-08-01 Completed [facility] Vaccine Recomb Quad 00:00:00 [facility], Preserv and ABX Branc h Free 18-64 YRS Twinrix (hep a/hep 2019-08-01 Completed [facility] b) 00:00:00 [facility] Influenza Virus 2019-08-01 Completed [facility] Vaccine Recomb Quad 00:00:00 [facility], Preserv and ABX Branc h Free 18-64 YRS Twinrix (hep a/hep 2019-08-01 Completed [facility] b) 00:00:00 [facility] Influenza Virus 2019-08-01 Completed [facility] Vaccine Recomb Quad 00:00:00 [facility], Preserv and ABX Branc h Free 18-64 YRS Twinrix (hep a/hep 2019-08-01 Completed [facility] b) 00:00:00 [facility] Influenza Virus 2019-08-01 Completed [facility] Vaccine Recomb Quad 00:00:00 [facility], Preserv and ABX Branc h Free 18-64 YRS Twinrix (hep a/hep 2019-08-01 Completed [facility] b) 00:00:00 [facility] Influenza Virus 2019-08-01 Completed [facility] Vaccine Recomb Quad 00:00:00 [facility], Preserv and ABX Branc h Free 18-64 YRS Twinrix (hep a/hep 2019-08-01 Completed [facility] b) 00:00:00 [facility] Influenza Virus 2019-08-01 Completed [facility] Vaccine Recomb Quad 00:00:00 [facility], Preserv and ABX Branc h Free 18-64 YRS Twinrix (hep a/hep 2019-08-01 Completed [facility] b) 00:00:00 [facility] Influenza Virus 2019-08-01 Completed [facility] Vaccine Recomb Quad 00:00:00 [facility], Preserv and ABX Branc h Free 18-64 YRS Twinrix (hep a/hep 2019-08-01 Completed [facility] b) 00:00:00 [facility] Influenza Virus 2019-08-01 Completed [facility] Vaccine Recomb Quad 00:00:00 [facility], Preserv and ABX Branc h Free 18-64 YRS Twinrix (hep a/hep 2019-08-01 Completed [facility] b) 00:00:00 [facility] Influenza Virus 2019-08-01 Completed [facility] Vaccine Recomb Quad 00:00:00 [facility], Preserv and ABX Branc h Free 18-64 YRS Twinrix (hep a/hep 2019-08-01 Completed [facility] b) 00:00:00 [facility] Influenza Virus 2019-08-01 Completed [facility] Vaccine Recomb Quad 00:00:00 [facility], Preserv and ABX Branc h Free 18-64 YRS Twinrix (hep a/hep 2019-08-01 Completed [facility] b) 00:00:00 [facility] Influenza Virus 2019-08-01 Completed [facility] Vaccine Recomb Quad 00:00:00 [facility], Preserv and ABX Branc h Free 18-64 YRS Twinrix (hep a/hep 2019-08-01 Completed [facility] b) 00:00:00 [facility] Influenza Virus 2019-08-01 Completed [facility] Vaccine Recomb Quad 00:00:00 [facility], Preserv and ABX Branc h Free 18-64 YRS Twinrix (hep a/hep 2019-08-01 Completed [facility] b) 00:00:00 [facility] Influenza Virus 2019-08-01 Completed [facility] Vaccine Recomb Quad 00:00:00 [facility], Preserv and ABX Branc h Free 18-64 YRS Twinrix (hep a/hep 2019-08-01 Completed [facility] b) 00:00:00 [facility] Influenza Virus 2019-08-01 Completed [facility] Vaccine Recomb Quad 00:00:00 [facility], Preserv and ABX Branc h Free 18-64 YRS Twinrix (hep a/hep 2019-08-01 Completed [facility] b) 00:00:00 [facility] Influenza Virus 2019-08-01 Completed [facility] Vaccine Recomb Quad 00:00:00 [facility], Preserv and ABX Branc h Free 18-64 YRS Twinrix (hep a/hep 2019-08-01 Completed [facility] b) 00:00:00 [facility] Influenza Virus 2019-08-01 Completed [facility] Vaccine Recomb Quad 00:00:00 [facility], Preserv and ABX Branc h Free 18-64 YRS Twinrix (hep a/hep 2019-08-01 Completed [facility] b) 00:00:00 [facility] Influenza Virus 2019-08-01 Completed [facility] Vaccine Recomb Quad 00:00:00 [facility], Preserv and ABX Branc h Free 18-64 YRS Twinrix (hep a/hep 2019-08-01 Completed [facility] b) 00:00:00 [facility] Influenza Virus 2019-08-01 Completed [facility] Vaccine Recomb Quad 00:00:00 [facility], Preserv and ABX Branc h Free 18-64 YRS Twinrix (hep a/hep 2019-08-01 Completed [facility] b) 00:00:00 [facility] Influenza Virus 2019-08-01 Completed [facility] Vaccine Recomb Quad 00:00:00 [facility], Preserv and ABX Branc h Free 18-64 YRS Twinrix (hep a/hep 2019-08-01 Completed [facility] b) 00:00:00 [facility] Influenza Virus 2019-08-01 Completed [facility] Vaccine Recomb Quad 00:00:00 [facility], Preserv and ABX Branc h Free 18-64 YRS Twinrix (hep a/hep 2019-08-01 Completed [facility] b) 00:00:00 [facility] Influenza Virus 2019-08-01 Completed [facility] Vaccine Recomb Quad 00:00:00 [facility], Preserv and ABX Branc h Free 18-64 YRS Twinrix (hep a/hep 2019-08-01 Completed [facility] b) 00:00:00 [facility] Influenza Virus 2019-08-01 Completed [facility] Vaccine Recomb Quad 00:00:00 [facility], Preserv and ABX Branc h Free 18-64 YRS Twinrix (hep a/hep 2019-08-01 Completed [facility] b) 00:00:00 [facility] Influenza Virus 2019-08-01 Completed [facility] Vaccine Recomb Quad 00:00:00 [facility], Preserv and ABX Branc h Free 18-64 YRS Twinrix (hep a/hep 2019-08-01 Completed [facility] b) 00:00:00 [facility] Influenza Virus 2019-08-01 Completed [facility] Vaccine Recomb Quad 00:00:00 [facility], Preserv and ABX Branc h Free 18-64 YRS Twinrix (hep a/hep 2019-08-01 Completed [facility] b) 00:00:00 [facility] Influenza Virus 2019-08-01 Completed [facility] Vaccine Recomb Quad 00:00:00 [facility], Preserv and ABX Branc h Free 18-64 YRS Twinrix (hep a/hep 2019-08-01 Completed [facility] b) 00:00:00 [facility] Influenza Virus 2019-08-01 Completed [facility] Vaccine Recomb Quad 00:00:00 [facility], Preserv and ABX Branc h Free 18-64 YRS Twinrix (hep a/hep 2019-08-01 Completed [facility] b) 00:00:00 [facility] Influenza Virus 2019-08-01 Completed [facility] Vaccine Recomb Quad 00:00:00 [facility], Preserv and ABX Branc h Free 18-64 YRS Twinrix (hep a/hep 2019-08-01 Completed [facility] b) 00:00:00 [facility] Influenza Virus 2019-08-01 Completed [facility] Vaccine Recomb Quad 00:00:00 [facility], Preserv and ABX Branc h Free 18-64 YRS Twinrix (hep a/hep 2019-08-01 Completed [facility] b) 00:00:00 [facility] Pneumococcal 2019-01-10 Completed [facility] Polysaccharide, 00:00:00 [facility] PPSV23 (PNEUMOVAX) Branch Pneumococcal 2019-01-10 Completed [facility] Polysaccharide, 00:00:00 [facility] PPSV23 (PNEUMOVAX) Branch Pneumococcal 2019-01-10 Completed [facility] Polysaccharide, 00:00:00 [facility] PPSV23 (PNEUMOVAX) Branch Pneumococcal 2019-01-10 Completed [facility] Polysaccharide, 00:00:00 [facility] PPSV23 (PNEUMOVAX) Branch Pneumococcal 2019-01-10 Completed [facility] Polysaccharide, 00:00:00 [facility] PPSV23 (PNEUMOVAX) Branch Pneumococcal 2019-01-10 Completed [facility] Polysaccharide, 00:00:00 [facility] PPSV23 (PNEUMOVAX) Branch Pneumococcal 2019-01-10 Completed [facility] Polysaccharide, 00:00:00 [facility] PPSV23 (PNEUMOVAX) Branch Pneumococcal 2019-01-10 Completed [facility] Polysaccharide, 00:00:00 [facility] PPSV23 (PNEUMOVAX) Branch Pneumococcal 2019-01-10 Completed [facility] Polysaccharide, 00:00:00 [facility] PPSV23 (PNEUMOVAX) Branch Pneumococcal 2019-01-10 Completed [facility] Polysaccharide, 00:00:00 [facility] PPSV23 (PNEUMOVAX) Branch Pneumococcal 2019-01-10 Completed [facility] Polysaccharide, 00:00:00 [facility] PPSV23 (PNEUMOVAX) Branch Pneumococcal 2019-01-10 Completed [facility] Polysaccharide, 00:00:00 [facility] PPSV23 (PNEUMOVAX) Branch Pneumococcal 2019-01-10 Completed [facility] Polysaccharide, 00:00:00 [facility] PPSV23 (PNEUMOVAX) Branch Pneumococcal 2019-01-10 Completed [facility] Polysaccharide, 00:00:00 [facility] PPSV23 (PNEUMOVAX) Branch Pneumococcal 2019-01-10 Completed [facility] Polysaccharide, 00:00:00 [facility] PPSV23 (PNEUMOVAX) Branch Pneumococcal 2019-01-10 Completed [facility] Polysaccharide, 00:00:00 [facility] PPSV23 (PNEUMOVAX) Branch Pneumococcal 2019-01-10 Completed [facility] Polysaccharide, 00:00:00 [facility] PPSV23 (PNEUMOVAX) Branch Pneumococcal 2019-01-10 Completed [facility] Polysaccharide, 00:00:00 [facility] PPSV23 (PNEUMOVAX) Branch Pneumococcal 2019-01-10 Completed [facility] Polysaccharide, 00:00:00 [facility] PPSV23 (PNEUMOVAX) Branch Pneumococcal 2019-01-10 Completed [facility] Polysaccharide, 00:00:00 [facility] PPSV23 (PNEUMOVAX) Branch Pneumococcal 2019-01-10 Completed [facility] Polysaccharide, 00:00:00 [facility] PPSV23 (PNEUMOVAX) Branch Pneumococcal 2019-01-10 Completed [facility] Polysaccharide, 00:00:00 [facility] PPSV23 (PNEUMOVAX) Branch Pneumococcal 2019-01-10 Completed [facility] Polysaccharide, 00:00:00 [facility] PPSV23 (PNEUMOVAX) Branch Pneumococcal 2019-01-10 Completed [facility] Polysaccharide, 00:00:00 [facility] PPSV23 (PNEUMOVAX) Branch Pneumococcal 2019-01-10 Completed [facility] Pol[facility], 00:[facility]:00 [place] [facility] PPSV23 (PNEUMOVAX) Branch Pneumococcal 2019-01-10 Completed [facility] Polysaccharide, 00:00:00 [place] [facility] PPSV23 (PNEUMOVAX) Branch Pneumococcal 2019-01-10 Completed [facility] Polysaccharide, 00:00:00 [place] [facility] PPSV23 (PNEUMOVAX) Branch Pneumococcal 2019-01-10 Completed [facility] Polysaccharide, 00:00:00 [place] [facility] PPSV23 (PNEUMOVAX) Branch Pneumococcal 2019-01-10 Completed [facility] Polysaccharide, 00:00:00 [place] [facility] PPSV23 (PNEUMOVAX) Branch Pneumococcal 2019-01-10 Completed [facility] Polysaccharide, 00:00:00 [place] [facility] PPSV23 (PNEUMOVAX) Branch Pneumococcal 2019-01-10 Completed [facility] Polysaccharide, 00:00:00 [place] [facility] PPSV23 (PNEUMOVAX) Branch Pneumococcal 2019-01-10 Completed [facility] Polysaccharide, 00:00:00 [place] [facility] PPSV23 (PNEUMOVAX) Branch Pneumococcal 2019-01-10 Completed [facility] Polysaccharide, 00:00:00 [place] [facility] PPSV23 (PNEUMOVAX) Branch Pneumococcal 2019-01-10 Completed [facility] Polysaccharide, 00:00:00 [place] [facility] PPSV23 (PNEUMOVAX) Branch Pneumococcal 2019-01-10 Completed [facility] Polysaccharide, 00:00:00 [place] [facility] PPSV23 (PNEUMOVAX) Branch Pneumococcal 2019-01-10 Completed [facility] Polysaccharide, 00:00:00 [place] [facility] PPSV23 (PNEUMOVAX) Branch Pneumococcal 2019-01-10 Completed [facility] Polysaccharide, 00:00:00 [place] [facility] PPSV23 (PNEUMOVAX) Branch Pneumococcal 2019-01-10 Completed [facility] Polysaccharide, 00:00:00 [place] [facility] PPSV23 (PNEUMOVAX) Branch Pneumococcal 2019-01-10 Completed [facility] Polysaccharide, 00:00:00 [place] [facility] PPSV23 (PNEUMOVAX) Branch Pneumococcal 2019-01-10 Completed [facility] Polysaccharide, 00:00:00 [place] [facility] PPSV23 (PNEUMOVAX) Branch Pneumococcal 2019-01-10 Completed [facility] Polysaccharide, 00:00:00 [place] [facility] PPSV23 (PNEUMOVAX) Branch Pneumococcal 2019-01-10 Completed [facility] Polysaccharide, 00:00:00 [place] [facility] PPSV23 (PNEUMOVAX) Branch Pneumococcal 2019-01-10 Completed [facility] Polysaccharide, 00:00:00 [place] [facility] PPSV23 (PNEUMOVAX) Branch Pneumococcal 2019-01-10 Completed [facility] Polysaccharide, 00:00:00 [place] [facility] PPSV23 (PNEUMOVAX) Branch Pneumococcal 2019-01-10 Completed [facility] Polysaccharide, 00:00:00 [place] [facility] PPSV23 (PNEUMOVAX) Branch Pneumococcal 2019-01-10 Completed [facility] Polysaccharide, 00:00:00 [place] [facility] PPSV23 (PNEUMOVAX) Branch Pneumococcal 2019-01-10 Completed [facility] Polysaccharide, 00:00:00 [place] [facility] PPSV23 (PNEUMOVAX) Branch Pneumococcal 2019-01-10 Completed [facility] Polysaccharide, 00:00:00 [place] [facility] PPSV23 (PNEUMOVAX) Branch Pneumococcal 2019-01-10 Completed [facility] Polysaccharide, 00:00:00 [place] [facility] PPSV23 (PNEUMOVAX) Branch Pneumococcal 2019-01-10 Completed [facility] Polysaccharide, 00:00:00 [place] [facility] PPSV23 (PNEUMOVAX) Branch Pneumococcal 2019-01-10 Completed [facility] Polysaccharide, 00:00:00 [place] [facility] PPSV23 (PNEUMOVAX) Branch Pneumococcal 2019-01-10 Completed [facility] Polysaccharide, 00:00:00 [place] [facility] PPSV23 (PNEUMOVAX) Branch Pneumococcal 2019-01-10 Completed [facility] Polysaccharide, 00:00:00 [place] [facility] PPSV23 (PNEUMOVAX) Branch Pneumococcal 2019-01-10 Completed [facility] Polysaccharide, 00:00:00 [place] [facility] PPSV23 (PNEUMOVAX) Branch Pneumococcal 2019-01-10 Completed [facility] Polysaccharide, 00:00:00 [place] [facility] PPSV23 (PNEUMOVAX) Branch Pneumococcal 2019-01-10 Completed [facility] Polysaccharide, 00:00:00 [place] [facility] PPSV23 (PNEUMOVAX) Branch Pneumococcal 2019-01-10 Completed [facility] Polysaccharide, 00:00:00 [place] [facility] PPSV23 (PNEUMOVAX) Branch Pneumococcal 2019-01-10 Completed [facility] Polysaccharide, 00:00:00 [place] [facility] PPSV23 (PNEUMOVAX) Branch Pneumococcal 2019-01-10 Completed [facility] Polysaccharide, 00:00:00 [place] [facility] PPSV23 (PNEUMOVAX) Branch Pneumococcal 2019-01-10 Completed [facility] Polysaccharide, 00:00:00 [place] [facility] PPSV23 (PNEUMOVAX) Branch Pneumococcal 2019-01-10 Completed [facility] Polysaccharide, 00:00:00 [place] [facility] PPSV23 (PNEUMOVAX) Branch Pneumococcal 2019-01-10 Completed [facility] Polysaccharide, 00:00:00 [place] [facility] PPSV23 (PNEUMOVAX) Branch Pneumococcal 2019-01-10 Completed [facility] Polysaccharide, 00:00:00 [place] [facility] PPSV23 (PNEUMOVAX) Branch Pneumococcal 2019-01-10 Completed [facility] Polysaccharide, 00:00:00 [place] [facility] PPSV23 (PNEUMOVAX) Branch Pneumococcal 2019-01-10 Completed [facility] Polysaccharide, 00:00:00 [place] [facility] PPSV23 (PNEUMOVAX) Branch Pneumococcal 2019-01-10 Completed [facility] Polysaccharide, 00:00:00 [place] [facility] PPSV23 (PNEUMOVAX) Branch Pneumococcal 2019-01-10 Completed [facility] Polysaccharide, 00:00:00 [place] [facility] PPSV23 (PNEUMOVAX) Branch Pneumococcal 2019-01-10 Completed [facility] Polysaccharide, 00:00:00 [place] [facility] PPSV23 (PNEUMOVAX) Branch Pneumococcal 2019-01-10 Completed [facility] Polysaccharide, 00:00:00 [place] [facility] PPSV23 (PNEUMOVAX) Branch Pneumococcal 2019-01-10 Completed [facility] Polysaccharide, 00:00:00 [place] [facility] PPSV23 (PNEUMOVAX) Branch Pneumococcal 2019-01-10 Completed [facility] Polysaccharide, 00:00:00 [place] [facility] PPSV23 (PNEUMOVAX) Branch Pneumococcal 2019-01-10 Completed [facility] Polysaccharide, 00:00:00 [place] [facility] PPSV23 (PNEUMOVAX) Branch Pneumococcal 2019-01-10 Completed [facility] Polysaccharide, 00:00:00 [place] [facility] PPSV23 (PNEUMOVAX) Branch Pneumococcal 2019-01-10 Completed [facility] Polysaccharide, 00:00:00 [place] [facility] PPSV23 (PNEUMOVAX) Branch Pneumococcal 2019-01-10 Completed [facility] Polysaccharide, 00:00:00 [place] [facility] PPSV23 (PNEUMOVAX) Branch Pneumococcal 2019-01-10 Completed [facility] Polysaccharide, 00:00:00 [place] [facility] PPSV23 (PNEUMOVAX) Branch Pneumococcal 2019-01-10 Completed [facility] Polysaccharide, 00:00:00 [place] [facility] PPSV23 (PNEUMOVAX) Branch Pneumococcal 2019-01-10 Completed [facility] Polysaccharide, 00:00:00 [place] [facility] PPSV23 (PNEUMOVAX) Branch Pneumococcal 2019-01-10 Completed [facility] Polysaccharide, 00:00:00 [place] [facility] PPSV23 (PNEUMOVAX) Branch Pneumococcal 2019-01-10 Completed [facility] Polysaccharide, 00:00:00 [place] [facility] PPSV23 (PNEUMOVAX) Branch Pneumococcal 2019-01-10 Completed [facility] Polysaccharide, 00:00:00 [place] [facility] PPSV23 (PNEUMOVAX) Branch Pneumococcal 2019-01-10 Completed [facility] Polysaccharide, 00:00:00 [place] [facility] PPSV23 (PNEUMOVAX) Branch Pneumococcal 2019-01-10 Completed [facility] Polysaccharide, 00:00:00 [place] [facility] PPSV23 (PNEUMOVAX) Branch Pneumococcal 2019-01-10 Completed [facility] Polysaccharide, 00:00:00 [place] [facility] PPSV23 (PNEUMOVAX) Branch Pneumococcal 2019-01-10 Completed [facility] Polysaccharide, 00:00:00 [place] [facility] PPSV23 (PNEUMOVAX) Branch Pneumococcal 2019-01-10 Completed [facility] Polysaccharide, 00:00:00 [place] [facility] PPSV23 (PNEUMOVAX) Branch Pneumococcal 2019-01-10 Completed [facility] Polysaccharide, 00:00:00 [place] [facility] PPSV23 (PNEUMOVAX) Branch Pneumococcal 2019-01-10 Completed [facility] Polysaccharide, 00:00:00 [place] [facility] PPSV23 (PNEUMOVAX) Branch Pneumococcal 2019-01-10 Completed [facility] Polysaccharide, 00:00:00 [place] [facility] PPSV23 (PNEUMOVAX) Branch Pneumococcal 2019-01-10 Completed [facility] Polysaccharide, 00:00:00 [place] [facility] PPSV23 (PNEUMOVAX) Branch Pneumococcal 2019-01-10 Completed [facility] Polysaccharide, 00:00:00 [place] [facility] PPSV23 (PNEUMOVAX) Branch Pneumococcal 2019-01-10 Completed [facility] Polysaccharide, 00:00:00 [place] [facility] PPSV23 (PNEUMOVAX) Branch Pneumococcal 2019-01-10 Completed [facility] Polysaccharide, 00:00:00 [place] [facility] PPSV23 (PNEUMOVAX) Branch Pneumococcal 2019-01-10 Completed [facility] Polysaccharide, 00:00:00 [place] [facility] PPSV23 (PNEUMOVAX) Branch Pneumococcal 2019-01-10 Completed [facility] Polysaccharide, 00:00:00 [place] [facility] PPSV23 (PNEUMOVAX) Branch Pneumococcal 2019-01-10 Completed [facility] Polysaccharide, 00:00:00 [place] [facility] PPSV23 (PNEUMOVAX) Branch Pneumococcal 2019-01-10 Completed [facility] Polysaccharide, 00:00:00 [place] [facility] PPSV23 (PNEUMOVAX) Branch Pneumococcal 2019-01-10 Completed [facility] Polysaccharide, 00:00:00 [place] [facility] PPSV23 (PNEUMOVAX) Branch Pneumococcal 2019-01-10 Completed [facility] Polysaccharide, 00:00:00 [place] [facility] PPSV23 (PNEUMOVAX) Branch Pneumococcal 2019-01-10 Completed [facility] Polysaccharide, 00:00:00 [place] [facility] PPSV23 (PNEUMOVAX) Branch Pneumococcal 2019-01-10 Completed [facility] Polysaccharide, 00:00:00 [place] [facility] PPSV23 (PNEUMOVAX) Branch Pneumococcal 2019-01-10 Completed [facility] Polysaccharide, 00:00:00 [place] [facility] PPSV23 (PNEUMOVAX) Branch Pneumococcal 2019-01-10 Completed [facility] Polysaccharide, 00:00:00 [place] [facility] PPSV23 (PNEUMOVAX) Branch Pneumococcal 2019-01-10 Completed [facility] Polysaccharide, 00:00:00 [place] [facility] PPSV23 (PNEUMOVAX) Branch Pneumococcal 2019-01-10 Completed [facility] Polysaccharide, 00:00:00 [place] [facility] PPSV23 (PNEUMOVAX) Branch Pneumococcal 2019-01-10 Completed [facility] Polysaccharide, 00:00:00 [place] [facility] PPSV23 (PNEUMOVAX) Branch Pneumococcal 2019-01-10 Completed [facility] Polysaccharide, 00:00:00 [place] [facility] PPSV23 (PNEUMOVAX) Branch Pneumococcal 2019-01-10 Completed [facility] Polysaccharide, 00:00:00 [place] [facility] PPSV23 (PNEUMOVAX) Branch Pneumococcal 2019-01-10 Completed [facility] Polysaccharide, 00:00:00 [place] [facility] PPSV23 (PNEUMOVAX) Branch Pneumococcal 2019-01-10 Completed [facility] Polysaccharide, 00:00:00 [place] [facility] PPSV23 (PNEUMOVAX) Branch Pneumococcal 2019-01-10 Completed [facility] Polysaccharide, 00:00:00 [place] [facility] PPSV23 (PNEUMOVAX) [place] Zoster Vaccine 2018-04-26 Completed [facility] Recombinant 00:00:00 [facility] Zoster Vaccine 2018-04-26 Completed [facility] of Recombinant 00:00:00 [facility] Zoster Vaccine 2018-04-26 Completed [facility] of Recombinant 00:00:00 [facility] Zoster Vaccine 2018-04-26 Completed [facility] of Recombinant 00:00:00 [facility] Zoster Vaccine 2018-04-26 Completed [facility] of Recombinant 00:00:00 [facility] Zoster Vaccine 2018-04-26 Completed [facility] of Recombinant 00:00:00 [facility] Zoster Vaccine 2018-04-26 Completed [facility] of Recombinant 00:00:00 [facility] Zoster Vaccine 2018-04-26 Completed [facility] of Recombinant 00:00:00 [facility] Zoster Vaccine 2018-04-26 Completed [facility] of Recombinant 00:00:00 [facility] Zoster Vaccine 2018-04-26 Completed [facility] of Recombinant 00:00:00 [facility] Zoster Vaccine 2018-04-26 Completed [facility] of Recombinant 00:00:00 [facility] Zoster Vaccine 2018-04-26 Completed [facility] of Recombinant 00:00:00 [facility] Zoster Vaccine 2018-04-26 Completed [facility] of Recombinant 00:00:00 [facility] Zoster Vaccine 2018-04-26 Completed [facility] of Recombinant 00:00:00 [facility] Zoster Vaccine 2018-04-26 Completed [facility] of Recombinant 00:00:00 [facility] Zoster Vaccine 2018-04-26 Completed [facility] of Recombinant 00:00:00 [facility] Zoster Vaccine 2018-04-26 Completed [facility] of Recombinant 00:00:00 [facility] Zoster Vaccine 2018-04-26 Completed [facility] of Recombinant 00:00:00 [facility] Zoster Vaccine 2018-04-26 Completed [facility] of Recombinant 00:00:00 [facility] Zoster Vaccine 2018-04-26 Completed [facility] of Recombinant 00:00:00 [facility] Zoster Vaccine 2018-04-26 Completed [facility] of Recombinant 00:00:00 [facility] Zoster Vaccine 2018-04-26 Completed [facility] of Recombinant 00:00:00 [facility] Zoster Vaccine 2018-04-26 Completed [facility] of Recombinant 00:00:00 [facility] Zoster Vaccine 2018-04-26 Completed [facility] of Recombinant 00:00:00 [facility] Zoster Vaccine 2018-04-26 Completed [facility] of Recombinant 00:00:00 [facility] Zoster Vaccine 2018-04-26 Completed [facility] of Recombinant 00:00:00 [facility] Zoster Vaccine 2018-04-26 Completed [facility] Recombinant 00:00:00 [place] [facility] [place] Zoster Vaccine 2018-04-26 Completed [facility] Recombinant 00:00:00 [facility] Zoster Vaccine 2018-04-26 Completed [facility] Recombinant 00:00:00 [facility] Zoster Vaccine 2018-04-26 Completed [facility] Recombinant 00:00:00 [facility] Zoster Vaccine 2018-04-26 Completed [facility] Recombinant 00:00:00 [facility] Zoster Vaccine 2018-04-26 Completed [facility] Recombinant 00:00:00 [facility] Zoster Vaccine 2018-04-26 Completed [facility] of Recombinant 00:00:00 [facility] Zoster Vaccine 2018-04-26 Completed [facility] of Recombinant 00:00:00 [facility] Zoster Vaccine 2018-04-26 Completed [facility] of Recombinant 00:00:00 [facility] Zoster Vaccine 2018-04-26 Completed [facility] of Recombinant 00:00:00 [facility] Zoster Vaccine 2018-04-26 Completed [facility] of Recombinant 00:00:00 [facility] Zoster Vaccine 2018-04-26 Completed [facility] of Recombinant 00:00:00 [facility] Zoster Vaccine 2018-04-26 Completed [facility] of Recombinant 00:00:00 [facility] Zoster Vaccine 2018-04-26 Completed [facility] of Recombinant 00:00:00 [facility] Zoster Vaccine 2018-04-26 Completed [facility] of Recombinant 00:00:00 [facility] Zoster Vaccine 2018-04-26 Completed [facility] of Recombinant 00:00:00 [facility] Zoster Vaccine 2018-04-26 Completed [facility] of Recombinant 00:00:00 [facility] Zoster Vaccine 2018-04-26 Completed [facility] of Recombinant 00:00:00 [facility] Zoster Vaccine 2018-04-26 Completed [facility] Recombinant 00:00:00 [facility] [place] Zoster Vaccine 2018-04-26 Completed [facility] of Recombinant 00:00:00 [facility] Zoster Vaccine 2018-04-26 Completed [facility] Recombinant 00:00:00 [facility] [place] Zoster Vaccine 2018-04-26 Completed [facility] Recombinant 00:00:00 [facility] [place] Zoster Vaccine 2018-04-26 Completed [facility] Recombinant 00:00:00 [facility] Zoster Vaccine 2018-04-26 Completed [facility] Recombinant 00:00:00 [facility] Zoster Vaccine 2018-04-26 Completed [facility] Recombinant 00:00:00 [facility] Zoster Vaccine 2018-04-26 Completed [facility] Recombinant 00:00:00 [facility] Zoster Vaccine 2018-04-26 Completed [facility] Recombinant 00:00:00 [facility] Zoster Vaccine 2018-04-26 Completed [facility] Recombinant 00:00:00 [place] [facility] Zoster Vaccine 2018-04-26 Completed [facility] Recombinant 00:00:00 [facility] Zoster Vaccine 2018-04-26 Completed [facility] of Recombinant 00:00:00 [facility] Zoster Vaccine 2018-04-26 Completed [facility] of Recombinant 00:00:00 [facility] Zoster Vaccine 2018-04-26 Completed [facility] of Recombinant 00:00:00 [facility] Zoster Vaccine 2018-04-26 Completed [facility] of Recombinant 00:00:00 [facility] Zoster Vaccine 2018-04-26 Completed [facility] of Recombinant 00:00:00 [facility] Zoster Vaccine 2018-04-26 Completed [facility] of Recombinant 00:00:00 [facility] Zoster Vaccine 2018-04-26 Completed [facility] of Recombinant 00:00:00 [facility] Zoster Vaccine 2018-04-26 Completed [facility] of Recombinant 00:00:00 [facility] Zoster Vaccine 2018-04-26 Completed [facility] of Recombinant 00:00:00 [facility] Zoster Vaccine 2018-04-26 Completed [facility] of Recombinant 00:00:00 [facility] Zoster Vaccine 2018-04-26 Completed [facility] of Recombinant 00:00:00 [facility] Zoster Vaccine 2018-04-26 Completed [facility] of Recombinant 00:00:00 [facility] Zoster Vaccine 2018-04-26 Completed [facility] of Recombinant 00:00:00 [facility] Zoster Vaccine 2018-04-26 Completed [facility] of Recombinant 00:00:00 [facility] Zoster Vaccine 2018-04-26 Completed [facility] of Recombinant 00:00:00 [facility] Zoster Vaccine 2018-04-26 Completed [facility] of Recombinant 00:00:00 [facility] Zoster Vaccine 2018-04-26 Completed [facility] of Recombinant 00:00:00 [facility] Zoster Vaccine 2018-04-26 Completed [facility] of Recombinant 00:00:00 [facility] Zoster Vaccine 2018-04-26 Completed [facility] of Recombinant 00:00:00 [facility] Zoster Vaccine 2018-04-26 Completed [facility] of Recombinant 00:00:00 [facility] Zoster Vaccine 2018-04-26 Completed [facility] of Recombinant 00:00:00 [facility] Zoster Vaccine 2018-04-26 Completed [facility] of Recombinant 00:00:00 [facility] Zoster Vaccine 2018-04-26 Completed [facility] Recombinant 00:00:00 [facility] Zoster Vaccine 2018-04-26 Completed [facility] Recombinant 00:00:00 [facility] Zoster Vaccine 2018-04-26 Completed [facility] Recombinant 00:00:00 [facility] Zoster Vaccine 2018-04-26 Completed [facility] Recombinant 00:00:00 [facility] Zoster Vaccine 2018-04-26 Completed [facility] Recombinant 00:00:00 [facility] Zoster Vaccine 2018-04-26 Completed [facility] Recombinant 00:00:00 [facility] Zoster Vaccine 2018-04-26 Completed [facility] Recombinant 00:00:00 [facility] Zoster Vaccine 2018-04-26 Completed [facility] Recombinant 00:00:00 [facility] Zoster Vaccine 2018-04-26 Completed [facility] Recombinant 00:00:00 [facility] [place] Zoster Vaccine 2018-04-26 Completed [facility] of Recombinant 00:00:00 [facility] Zoster Vaccine 2018-04-26 Completed [facility] of Recombinant 00:00:00 [facility] Zoster Vaccine 2018-04-26 Completed [facility] of Recombinant 00:00:00 [facility] Zoster Vaccine 2018-04-26 Completed [facility] of Recombinant 00:00:00 [facility] Zoster Vaccine 2018-04-26 Completed [facility] Recombinant 00:00:00 [facility] Zoster Vaccine 2018-04-26 Completed [facility] of Recombinant 00:00:00 [facility] Zoster Vaccine 2018-04-26 Completed [facility] of Recombinant 00:00:00 [facility] Zoster Vaccine 2018-04-26 Completed [facility] of Recombinant 00:00:00 [facility] Zoster Vaccine 2018-04-26 Completed [facility] of Recombinant 00:00:00 [facility] Zoster Vaccine 2018-04-26 Completed [facility] of Recombinant 00:00:00 [facility] Zoster Vaccine 2018-04-26 Completed [facility] Recombinant 00:00:00 [facility] Zoster Vaccine 2018-04-26 Completed [facility] Recombinant 00:00:00 [facility] [place] Zoster Vaccine 2018-04-26 Completed [facility] of Recombinant 00:00:00 [facility] Zoster Vaccine 2018-04-26 Completed [facility] Recombinant 00:00:00 [facility] [place] Zoster Vaccine 2018-04-26 Completed [facility] of Recombinant 00:00:00 [facility] Zoster Vaccine 2018-04-26 Completed [facility] of Recombinant 00:00:00 [facility] Zoster Vaccine 2018-04-26 Completed [facility] Recombinant 00:00:00 [facility] Zoster Vaccine 2018-04-26 Completed [facility] Recombinant 00:00:00 [facility] Zoster Vaccine 2018-04-26 Completed [facility] of Recombinant 00:00:00 [facility] Zoster Vaccine 2018-04-26 Completed [facility] of Recombinant 00:00:00 [facility] Zoster Vaccine 2018-04-26 Completed [facility] of Recombinant 00:00:00 [facility] Zoster Vaccine 2018-04-26 Completed [facility] of Recombinant 00:00:00 [facility] Zoster Vaccine 2018-04-26 Completed [facility] of Recombinant 00:00:00 [facility] Zoster Vaccine 2018-04-26 Completed [facility] of Recombinant 00:00:00 [facility] Zoster Vaccine 2018-04-26 Completed [facility] of Recombinant 00:00:00 [facility] TDAP (ADACEL) 2018-03-27 Completed [facility] of VACCINE 00:00:00 [facility] Influenza Virus 2018-03-27 Completed [facility]it [facility] Vaccine 00:00:00 [facility] TDAP (ADACEL) 2018-03-27 Completed [facility] of VACCINE 00:00:00 [facility] Influenza Virus 2018-03-27 Completed [facility] y of Vaccine 00:00:00 [facility] TDAP (ADACEL) 2018-03-27 Completed [facility] of VACCINE 00:00:00 [facility] Influenza Virus 2018-03-27 Completed [facility] y of Vaccine 00:00:00 [facility] TDAP (ADACEL) 2018-03-27 Completed [facility] of VACCINE 00:00:00 [facility] Influenza Virus 2018-03-27 Completed [facility]it y of Vaccine 00:00:00 [facility] TDAP (ADACEL) 2018-03-27 Completed [facility] of VACCINE 00:00:00 [facility] Influenza Virus 2018-03-27 Completed [facility] Vaccine 00:00:00 [facility] TDAP (ADACEL) 2018-03-27 Completed [facility] of VACCINE 00:00:00 [facility] Influenza Virus 2018-03-27 Completed [facility] Vaccine 00:00:00 [facility] TDAP (ADACEL) 2018-03-27 Completed [facility] of VACCINE 00:00:00 [facility] Influenza Virus 2018-03-27 Completed [facility] Vaccine 00:00:00 [facility] TDAP (ADACEL) 2018-03-27 Completed [facility] of VACCINE 00:00:00 [facility] Influenza Virus 2018-03-27 Completed [facility] Vaccine 00:00:00 [facility] TDAP (ADACEL) 2018-03-27 Completed [facility] VACCINE 00:00:00 [facility] Influenza Virus 2018-03-27 Completed [facility] Vaccine 00:00:00 [facility] TDAP (ADACEL) 2018-03-27 Completed [facility] of VACCINE 00:00:00 [facility] Influenza Virus 2018-03-27 Completed [facility]it [facility] Vaccine 00:00:00 [facility] TDAP (ADACEL) 2018-03-27 Completed [facility] of VACCINE 00:00:00 [facility] Influenza Virus 2018-03-27 Completed [facility] Vaccine 00:00:00 [facility] TDAP (ADACEL) 2018-03-27 Completed [facility] VACCINE 00:00:00 [facility] Influenza Virus 2018-03-27 Completed [facility] Vaccine 00:00:00 [facility] TDAP (ADACEL) 2018-03-27 Completed [facility] VACCINE 00:00:00 [facility] Influenza Virus 2018-03-27 Completed [facility] Vaccine 00:00:00 [facility] TDAP (ADACEL) 2018-03-27 Completed [facility] VACCINE 00:00:00 [facility] Influenza Virus 2018-03-27 Completed [facility] Vaccine 00:00:00 [facility] TDAP (ADACEL) 2018-03-27 Completed [facility] VACCINE 00:00:00 [facility] Influenza Virus 2018-03-27 Completed [facility] Vaccine 00:00:00 [facility] TDAP (ADACEL) 2018-03-27 Completed [facility] VACCINE 00:00:00 [facility] Influenza Virus 2018-03-27 Completed [facility] Vaccine 00:00:00 [facility] TDAP (ADACEL) 2018-03-27 Completed [facility] VACCINE 00:00:00 [facility] Influenza Virus 2018-03-27 Completed [facility] Vaccine 00:00:00 [facility] TDAP (ADACEL) 2018-03-27 Completed [facility] VACCINE 00:00:00 [facility] Influenza Virus 2018-03-27 Completed [facility] Vaccine 00:00:00 [facility] TDAP (ADACEL) 2018-03-27 Completed [facility] VACCINE 00:00:00 [facility] Influenza Virus 2018-03-27 Completed [facility] Vaccine 00:00:00 [facility] TDAP (ADACEL) 2018-03-27 Completed [facility] VACCINE 00:00:00 [facility] Influenza Virus 2018-03-27 Completed [facility] Vaccine 00:00:00 [facility] TDAP (ADACEL) 2018-03-27 Completed [facility] VACCINE 00:00:00 [facility] Influenza Virus 2018-03-27 Completed [facility] Vaccine 00:00:00 [facility] TDAP (ADACEL) 2018-03-27 Completed [facility] VACCINE 00:00:00 [facility] Influenza Virus 2018-03-27 Completed [facility] Vaccine 00:00:00 [facility] TDAP (ADACEL) 2018-03-27 Completed [facility] VACCINE 00:00:00 [facility] Influenza Virus 2018-03-27 Completed [facility] Vaccine 00:00:00 [facility] TDAP (ADACEL) 2018-03-27 Completed [facility] VACCINE 00:00:00 [facility] Influenza Virus 2018-03-27 Completed [facility] Vaccine 00:00:00 [facility] TDAP (ADACEL) 2018-03-27 Completed [facility] VACCINE 00:00:00 [facility] Influenza Virus 2018-03-27 Completed [facility] Vaccine 00:00:00 [facility] TDAP (ADACEL) 2018-03-27 Completed [facility] VACCINE 00:00:00 [facility] Influenza Virus 2018-03-27 Completed [facility] Vaccine 00:00:00 [facility] TDAP (ADACEL) 2018-03-27 Completed [facility] VACCINE 00:00:00 [facility] Influenza Virus 2018-03-27 Completed [facility] Vaccine 00:00:00 [facility] TDAP (ADACEL) 2018-03-27 Completed [facility] VACCINE 00:00:00 [facility] Influenza Virus 2018-03-27 Completed [facility] Vaccine 00:00:00 [facility] TDAP (ADACEL) 2018-03-27 Completed [facility] VACCINE 00:00:00 [facility] Influenza Virus 2018-03-27 Completed [facility] Vaccine 00:00:00 [facility] TDAP (ADACEL) 2018-03-27 Completed [facility] VACCINE 00:00:00 [facility] Influenza Virus 2018-03-27 Completed [facility] Vaccine 00:00:00 [facility] TDAP (ADACEL) 2018-03-27 Completed [facility] VACCINE 00:00:00 [facility] Influenza Virus 2018-03-27 Completed [facility] Vaccine 00:00:00 [facility] TDAP (ADACEL) 2018-03-27 Completed [facility] VACCINE 00:00:00 [facility] Influenza Virus 2018-03-27 Completed [facility] Vaccine 00:00:00 [facility] TDAP (ADACEL) 2018-03-27 Completed [facility] VACCINE 00:00:00 [facility] Influenza Virus 2018-03-27 Completed [facility] Vaccine 00:00:00 [facility] TDAP (ADACEL) 2018-03-27 Completed [facility] VACCINE 00:00:00 [facility] Influenza Virus 2018-03-27 Completed [facility] Vaccine 00:00:00 [facility] TDAP (ADACEL) 2018-03-27 Completed [facility] VACCINE 00:00:00 [facility] Influenza Virus 2018-03-27 Completed [facility] Vaccine 00:00:00 [facility] TDAP (ADACEL) 2018-03-27 Completed [facility] VACCINE 00:00:00 [facility] Influenza Virus 2018-03-27 Completed [facility] Vaccine 00:00:00 [facility] TDAP (ADACEL) 2018-03-27 Completed [facility] VACCINE 00:00:00 [facility] Influenza Virus 2018-03-27 Completed [facility] Vaccine 00:00:00 [facility] TDAP (ADACEL) 2018-03-27 Completed [facility] VACCINE 00:00:00 [facility] Influenza Virus 2018-03-27 Completed [facility] Vaccine 00:00:00 [facility] TDAP (ADACEL) 2018-03-27 Completed [facility] VACCINE 00:00:00 [facility] Influenza Virus 2018-03-27 Completed [facility] Vaccine 00:00:00 [facility] TDAP (ADACEL) 2018-03-27 Completed [facility] VACCINE 00:00:00 [facility] Influenza Virus 2018-03-27 Completed [facility] Vaccine 00:00:00 [facility] TDAP (ADACEL) 2018-03-27 Completed [facility] VACCINE 00:00:00 [facility] Influenza Virus 2018-03-27 Completed [facility] Vaccine 00:00:00 [facility] TDAP (ADACEL) 2018-03-27 Completed [facility] VACCINE 00:00:00 [facility] Influenza Virus 2018-03-27 Completed [facility] Vaccine 00:00:00 [facility] TDAP (ADACEL) 2018-03-27 Completed [facility] VACCINE 00:00:00 [facility] Influenza Virus 2018-03-27 Completed [facility] Vaccine 00:00:00 [facility] TDAP (ADACEL) 2018-03-27 Completed [facility] VACCINE 00:00:00 [facility] Influenza Virus 2018-03-27 Completed [facility] Vaccine 00:00:00 [facility] TDAP (ADACEL) 2018-03-27 Completed [facility] VACCINE 00:00:00 [facility] Influenza Virus 2018-03-27 Completed [facility] Vaccine 00:00:00 [facility] TDAP (ADACEL) 2018-03-27 Completed [facility] VACCINE 00:00:00 [facility] Influenza Virus 2018-03-27 Completed [facility] Vaccine 00:00:00 [facility] TDAP (ADACEL) 2018-03-27 Completed [facility] VACCINE 00:00:00 [facility] Influenza Virus 2018-03-27 Completed [facility] Vaccine 00:00:00 [facility] TDAP (ADACEL) 2018-03-27 Completed [facility] VACCINE 00:00:00 [facility] Influenza Virus 2018-03-27 Completed [facility] Vaccine 00:00:00 [facility] TDAP (ADACEL) 2018-03-27 Completed [facility] VACCINE 00:00:00 [facility] Influenza Virus 2018-03-27 Completed [facility] Vaccine 00:00:00 [facility] TDAP (ADACEL) 2018-03-27 Completed [facility] VACCINE 00:00:00 [facility] Influenza Virus 2018-03-27 Completed [facility] Vaccine 00:00:00 [facility] TDAP (ADACEL) 2018-03-27 Completed [facility] VACCINE 00:00:00 [facility] Influenza Virus 2018-03-27 Completed [facility] Vaccine 00:00:00 [facility] TDAP (ADACEL) 2018-03-27 Completed [facility] VACCINE 00:00:00 [facility] Influenza Virus 2018-03-27 Completed [facility] Vaccine 00:00:00 [facility] TDAP (ADACEL) 2018-03-27 Completed [facility] VACCINE 00:00:00 [facility] Influenza Virus 2018-03-27 Completed [facility] Vaccine 00:00:00 [facility] TDAP (ADACEL) 2018-03-27 Completed [facility] VACCINE 00:00:00 [facility] Influenza Virus 2018-03-27 Completed [facility] Vaccine 00:00:00 [facility] TDAP (ADACEL) 2018-03-27 Completed [facility] VACCINE 00:00:00 [facility] Influenza Virus 2018-03-27 Completed [facility] Vaccine 00:00:00 [facility] TDAP (ADACEL) 2018-03-27 Completed [facility] VACCINE 00:00:00 [facility] Influenza Virus 2018-03-27 Completed [facility] Vaccine 00:00:00 [facility] TDAP (ADACEL) 2018-03-27 Completed [facility] VACCINE 00:00:00 [facility] Influenza Virus 2018-03-27 Completed [facility] Vaccine 00:00:00 [facility] TDAP (ADACEL) 2018-03-27 Completed [facility] VACCINE 00:00:00 [facility] Influenza Virus 2018-03-27 Completed [facility] Vaccine 00:00:00 [facility] TDAP (ADACEL) 2018-03-27 Completed [facility] VACCINE 00:00:00 [facility] Influenza Virus 2018-03-27 Completed [facility] Vaccine 00:00:00 [facility] TDAP (ADACEL) 2018-03-27 Completed [facility] VACCINE 00:00:00 [facility] Influenza Virus 2018-03-27 Completed [facility] Vaccine 00:00:00 [facility] TDAP (ADACEL) 2018-03-27 Completed [facility] VACCINE 00:00:00 [facility] Influenza Virus 2018-03-27 Completed [facility] Vaccine 00:00:00 [facility] TDAP (ADACEL) 2018-03-27 Completed [facility] VACCINE 00:00:00 [facility] Influenza Virus 2018-03-27 Completed [facility] Vaccine 00:00:00 [facility] TDAP (ADACEL) 2018-03-27 Completed [facility] VACCINE 00:00:00 [facility] Influenza Virus 2018-03-27 Completed [facility] Vaccine 00:00:00 [facility] TDAP (ADACEL) 2018-03-27 Completed [facility] VACCINE 00:00:00 [facility] Influenza Virus 2018-03-27 Completed [facility] Vaccine 00:00:00 [facility] TDAP (ADACEL) 2018-03-27 Completed [facility] VACCINE 00:00:00 [facility] Influenza Virus 2018-03-27 Completed [facility] Vaccine 00:00:00 [facility] TDAP (ADACEL) 2018-03-27 Completed [facility] VACCINE 00:00:00 [facility] Influenza Virus 2018-03-27 Completed [facility] Vaccine 00:00:00 [facility] TDAP (ADACEL) 2018-03-27 Completed [facility] VACCINE 00:00:00 [facility] Influenza Virus 2018-03-27 Completed [facility] Vaccine 00:00:00 [facility] TDAP (ADACEL) 2018-03-27 Completed [facility] VACCINE 00:00:00 [facility] Influenza Virus 2018-03-27 Completed [facility] Vaccine 00:00:00 [facility] TDAP (ADACEL) 2018-03-27 Completed [facility] VACCINE 00:00:00 [facility] Influenza Virus 2018-03-27 Completed [facility] Vaccine 00:00:00 [facility] TDAP (ADACEL) 2018-03-27 Completed [facility] VACCINE 00:00:00 [facility] Influenza Virus 2018-03-27 Completed [facility] Vaccine 00:00:00 [facility] TDAP (ADACEL) 2018-03-27 Completed [facility] VACCINE 00:00:00 [facility] Influenza Virus 2018-03-27 Completed [facility] Vaccine 00:00:00 [facility] TDAP (ADACEL) 2018-03-27 Completed [facility] VACCINE 00:00:00 [facility] Influenza Virus 2018-03-27 Completed [facility] Vaccine 00:00:00 [facility] TDAP (ADACEL) 2018-03-27 Completed [facility] VACCINE 00:00:00 [facility] Influenza Virus 2018-03-27 Completed [facility] Vaccine 00:00:00 [facility] TDAP (ADACEL) 2018-03-27 Completed [facility] of VACCINE 00:00:00 [facility] Influenza Virus 2018-03-27 Completed [facility] Vaccine 00:00:00 [facility] TDAP (ADACEL) 2018-03-27 Completed [facility] of VACCINE 00:00:00 [facility] Influenza Virus 2018-03-27 Completed [facility] Vaccine 00:00:00 [facility] TDAP (ADACEL) 2018-03-27 Completed [facility] VACCINE 00:00:00 [facility] Influenza Virus 2018-03-27 Completed [facility] Vaccine 00:00:00 [facility] TDAP (ADACEL) 2018-03-27 Completed [facility] VACCINE 00:00:00 [facility] Influenza Virus 2018-03-27 Completed [facility] Vaccine 00:00:00 [facility] TDAP (ADACEL) 2018-03-27 Completed [facility] VACCINE 00:00:00 [facility] Influenza Virus 2018-03-27 Completed [facility] Vaccine 00:00:00 [facility] TDAP (ADACEL) 2018-03-27 Completed [facility] VACCINE 00:00:00 [facility] Influenza Virus 2018-03-27 Completed [facility] Vaccine 00:00:00 [facility] TDAP (ADACEL) 2018-03-27 Completed [facility] VACCINE 00:00:00 [facility] Influenza Virus 2018-03-27 Completed [facility] Vaccine 00:00:00 [facility] TDAP (ADACEL) 2018-03-27 Completed [facility] VACCINE 00:00:00 [facility] Influenza Virus 2018-03-27 Completed [facility] Vaccine 00:00:00 [facility] TDAP (ADACEL) 2018-03-27 Completed [facility] VACCINE 00:00:00 [facility] Influenza Virus 2018-03-27 Completed [facility] Vaccine 00:00:00 [facility] TDAP (ADACEL) 2018-03-27 Completed [facility] VACCINE 00:00:00 [facility] Influenza Virus 2018-03-27 Completed [facility] Vaccine 00:00:00 [facility] TDAP (ADACEL) 2018-03-27 Completed [facility] VACCINE 00:00:00 [facility] Influenza Virus 2018-03-27 Completed [facility] Vaccine 00:00:00 [facility] TDAP (ADACEL) 2018-03-27 Completed [facility] VACCINE 00:00:00 [facility] Influenza Virus 2018-03-27 Completed [facility] Vaccine 00:00:00 [facility] TDAP (ADACEL) 2018-03-27 Completed [facility] VACCINE 00:00:00 [facility] Influenza Virus 2018-03-27 Completed [facility] Vaccine 00:00:00 [facility] TDAP (ADACEL) 2018-03-27 Completed [facility] VACCINE 00:00:00 [facility] Influenza Virus 2018-03-27 Completed [facility] Vaccine 00:00:00 [facility] TDAP (ADACEL) 2018-03-27 Completed [facility] VACCINE 00:00:00 [facility] Influenza Virus 2018-03-27 Completed [facility] Vaccine 00:00:00 [facility] TDAP (ADACEL) 2018-03-27 Completed [facility] VACCINE 00:00:00 [facility] Influenza Virus 2018-03-27 Completed [facility] Vaccine 00:00:00 [facility] TDAP (ADACEL) 2018-03-27 Completed [facility] VACCINE 00:00:00 [facility] Influenza Virus 2018-03-27 Completed [facility] Vaccine 00:00:00 [facility] TDAP (ADACEL) 2018-03-27 Completed [facility] VACCINE 00:00:00 [facility] Influenza Virus 2018-03-27 Completed [facility] Vaccine 00:00:00 [facility] TDAP (ADACEL) 2018-03-27 Completed [facility] VACCINE 00:00:00 [facility] Influenza Virus 2018-03-27 Completed [facility] Vaccine 00:00:00 [facility] TDAP (ADACEL) 2018-03-27 Completed [facility] VACCINE 00:00:00 [facility] Influenza Virus 2018-03-27 Completed [facility] Vaccine 00:00:00 [facility] TDAP (ADACEL) 2018-03-27 Completed [facility] VACCINE 00:00:00 [facility] Influenza Virus 2018-03-27 Completed [facility] Vaccine 00:00:00 [facility] TDAP (ADACEL) 2018-03-27 Completed [facility] VACCINE 00:00:00 [facility] Influenza Virus 2018-03-27 Completed [facility] Vaccine 00:00:00 [facility] TDAP (ADACEL) 2018-03-27 Completed [facility] VACCINE 00:00:00 [facility] Influenza Virus 2018-03-27 Completed [facility] Vaccine 00:00:00 [facility] TDAP (ADACEL) 2018-03-27 Completed [facility] VACCINE 00:00:00 [facility] Influenza Virus 2018-03-27 Completed [facility] Vaccine 00:00:00 [facility] TDAP (ADACEL) 2018-03-27 Completed [facility] VACCINE 00:00:00 [facility] Influenza Virus 2018-03-27 Completed [facility] Vaccine 00:00:00 [facility] TDAP (ADACEL) 2018-03-27 Completed [facility] VACCINE 00:00:00 [facility] Influenza Virus 2018-03-27 Completed [facility] Vaccine 00:00:00 [facility] TDAP (ADACEL) 2018-03-27 Completed [facility] VACCINE 00:00:00 [facility] Influenza Virus 2018-03-27 Completed [facility] Vaccine 00:00:00 [facility] TDAP (ADACEL) 2018-03-27 Completed [facility] VACCINE 00:00:00 [facility] Influenza Virus 2018-03-27 Completed [facility] Vaccine 00:00:00 [facility] TDAP (ADACEL) 2018-03-27 Completed [facility] of VACCINE 00:00:00 [facility] Influenza Virus 2018-03-27 Completed [facility] Vaccine 00:00:00 [facility] TDAP (ADACEL) 2018-03-27 Completed [facility] VACCINE 00:00:00 [facility] Influenza Virus 2018-03-27 Completed [facility] Vaccine 00:00:00 [facility] TDAP (ADACEL) 2018-03-27 Completed [facility] VACCINE 00:00:00 [facility] Influenza Virus 2018-03-27 Completed [facility] Vaccine 00:00:00 [facility] TDAP (ADACEL) 2018-03-27 Completed [facility] VACCINE 00:00:00 [facility] Influenza Virus 2018-03-27 Completed [facility] Vaccine 00:00:00 [facility] TDAP (ADACEL) 2018-03-27 Completed [facility] VACCINE 00:00:00 [facility] Influenza Virus 2018-03-27 Completed [facility] Vaccine 00:00:00 [facility] TDAP (ADACEL) 2018-03-27 Completed [facility] VACCINE 00:00:00 [facility] Influenza Virus 2018-03-27 Completed [facility] Vaccine 00:00:00 [facility] TDAP (ADACEL) 2018-03-27 Completed [facility] VACCINE 00:00:00 [facility] Influenza Virus 2018-03-27 Completed [facility] Vaccine 00:00:00 [facility] TDAP (ADACEL) 2018-03-27 Completed [facility] VACCINE 00:00:00 [facility] Influenza Virus 2018-03-27 Completed [facility] Vaccine 00:00:00 [facility] TDAP (ADACEL) 2018-03-27 Completed [facility] VACCINE 00:00:00 [facility] Influenza Virus 2018-03-27 Completed [facility] Vaccine 00:00:00 [facility] TDAP (ADACEL) 2018-03-27 Completed [facility] VACCINE 00:00:00 [facility] Influenza Virus 2018-03-27 Completed [facility] Vaccine 00:00:00 [facility] Zoster Vaccine 2018-01-15 Completed [facility] of Recombinant 00:00:00 [facility] Zoster Vaccine 2018-01-15 Completed [facility] Recombinant 00:00:00 [facility] Zoster Vaccine 2018-01-15 Completed [facility] Recombinant 00:00:00 [facility] Zoster Vaccine 2018-01-15 Completed [facility] Recombinant 00:00:00 [facility] Zoster Vaccine 2018-01-15 Completed [facility] Recombinant 00:00:00 [facility] Zoster Vaccine 2018-01-15 Completed [facility] of Recombinant 00:00:00 [facility] Zoster Vaccine 2018-01-15 Completed [facility] of Recombinant 00:00:00 [facility] Zoster Vaccine 2018-01-15 Completed [facility] of Recombinant 00:00:00 [facility] Zoster Vaccine 2018-01-15 Completed [facility] Recombinant 00:00:00 [facility] Zoster Vaccine 2018-01-15 Completed [facility] of Recombinant 00:00:00 [facility] Zoster Vaccine 2018-01-15 Completed [facility] of Recombinant 00:00:00 [facility] Zoster Vaccine 2018-01-15 Completed [facility] of Recombinant 00:00:00 [facility] Zoster Vaccine 2018-01-15 Completed [facility] Recombinant 00:00:00 [facility] Zoster Vaccine 2018-01-15 Completed [facility] of Recombinant 00:00:00 [facility] Zoster Vaccine 2018-01-15 Completed [facility] Recombinant 00:00:00 [facility] Zoster Vaccine 2018-01-15 Completed [facility] Recombinant 00:00:00 [facility] Zoster Vaccine 2018-01-15 Completed [facility] Recombinant 00:00:00 [facility] Zoster Vaccine 2018-01-15 Completed [facility] of Recombinant 00:00:00 [facility] Zoster Vaccine 2018-01-15 Completed [facility] Recombinant 00:00:00 [facility] Zoster Vaccine 2018-01-15 Completed [facility] Recombinant 00:00:00 [facility] Zoster Vaccine 2018-01-15 Completed [facility] of Recombinant 00:00:00 [facility] Zoster Vaccine 2018-01-15 Completed [facility] of Recombinant 00:00:00 [facility] Zoster Vaccine 2018-01-15 Completed [facility] Recombinant 00:00:00 [facility] Zoster Vaccine 2018-01-15 Completed [facility] Recombinant 00:00:00 [facility] Zoster Vaccine 2018-01-15 Completed [facility] Recombinant 00:00:00 [facility] Zoster Vaccine 2018-01-15 Completed [facility] Recombinant 00:00:00 [facility] Zoster Vaccine 2018-01-15 Completed [facility] Recombinant 00:00:00 [facility] Zoster Vaccine 2018-01-15 Completed [facility] Recombinant 00:00:00 [facility] Zoster Vaccine 2018-01-15 Completed [facility] Recombinant 00:00:00 [facility] Zoster Vaccine 2018-01-15 Completed [facility] Recombinant 00:00:00 [facility] Zoster Vaccine 2018-01-15 Completed [facility] Recombinant 00:00:00 [facility] Zoster Vaccine 2018-01-15 Completed [facility] Recombinant 00:00:00 [facility] Zoster Vaccine 2018-01-15 Completed [facility] Recombinant 00:00:00 [facility] Zoster Vaccine 2018-01-15 Completed [facility] Recombinant 00:00:00 [facility] Zoster Vaccine 2018-01-15 Completed [facility] Recombinant 00:00:00 [facility] Zoster Vaccine 2018-01-15 Completed [facility] Recombinant 00:00:00 [facility] Zoster Vaccine 2018-01-15 Completed [facility] Recombinant 00:00:00 [facility] Zoster Vaccine 2018-01-15 Completed [facility] Recombinant 00:00:00 [facility] Zoster Vaccine 2018-01-15 Completed [facility] Recombinant 00:00:00 [facility] Zoster Vaccine 2018-01-15 Completed [facility] Recombinant 00:00:00 [facility] Zoster Vaccine 2018-01-15 Completed [facility] Recombinant 00:00:00 [facility] Zoster Vaccine 2018-01-15 Completed [facility] Recombinant 00:00:00 [facility] Zoster Vaccine 2018-01-15 Completed [facility] Recombinant 00:00:00 [facility] Zoster Vaccine 2018-01-15 Completed [facility] Recombinant 00:00:00 [facility] Zoster Vaccine 2018-01-15 Completed [facility] Recombinant 00:00:00 [facility] Zoster Vaccine 2018-01-15 Completed [facility] Recombinant 00:00:00 [facility] Zoster Vaccine 2018-01-15 Completed [facility] Recombinant 00:00:00 [facility] Zoster Vaccine 2018-01-15 Completed [facility] Recombinant 00:00:00 [facility] Zoster Vaccine 2018-01-15 Completed [facility] Recombinant 00:00:00 [facility] Zoster Vaccine 2018-01-15 Completed [facility] Recombinant 00:00:00 [facility] Zoster Vaccine 2018-01-15 Completed [facility] Recombinant 00:00:00 [facility] Zoster Vaccine 2018-01-15 Completed [facility] Recombinant 00:00:00 [facility] Zoster Vaccine 2018-01-15 Completed [facility] Recombinant 00:00:00 [facility] Zoster Vaccine 2018-01-15 Completed [facility] Recombinant 00:00:00 [facility] Zoster Vaccine 2018-01-15 Completed [facility] Recombinant 00:00:00 [facility] Zoster Vaccine 2018-01-15 Completed [facility] Recombinant 00:00:00 [facility] Zoster Vaccine 2018-01-15 Completed [facility] Recombinant 00:00:00 [facility] Zoster Vaccine 2018-01-15 Completed [facility] Recombinant 00:00:00 [facility] Zoster Vaccine 2018-01-15 Completed [facility] Recombinant 00:00:00 [facility] Zoster Vaccine 2018-01-15 Completed [facility] Recombinant 00:00:00 [facility] Zoster Vaccine 2018-01-15 Completed [facility] Recombinant 00:00:00 [facility] Zoster Vaccine 2018-01-15 Completed [facility] Recombinant 00:00:00 [facility] Zoster Vaccine 2018-01-15 Completed [facility] Recombinant 00:00:00 [facility] Zoster Vaccine 2018-01-15 Completed [facility] Recombinant 00:00:00 [facility] Zoster Vaccine 2018-01-15 Completed [facility] Recombinant 00:00:00 [facility] Zoster Vaccine 2018-01-15 Completed [facility] Recombinant 00:00:00 [facility] Zoster Vaccine 2018-01-15 Completed [facility] Recombinant 00:00:00 [facility] Zoster Vaccine 2018-01-15 Completed [facility] Recombinant 00:00:00 [facility] Zoster Vaccine 2018-01-15 Completed [facility] Recombinant 00:00:00 [facility] Zoster Vaccine 2018-01-15 Completed [facility] Recombinant 00:00:00 [facility] Zoster Vaccine 2018-01-15 Completed [facility] Recombinant 00:00:00 [facility] Zoster Vaccine 2018-01-15 Completed [facility] Recombinant 00:00:00 [facility] Zoster Vaccine 2018-01-15 Completed [facility] Recombinant 00:00:00 [facility] Zoster Vaccine 2018-01-15 Completed [facility] Recombinant 00:00:00 [facility] Zoster Vaccine 2018-01-15 Completed [facility] Recombinant 00:00:00 [facility] Zoster Vaccine 2018-01-15 Completed [facility] Recombinant 00:00:00 [facility] Zoster Vaccine 2018-01-15 Completed [facility] Recombinant 00:00:00 [facility] Zoster Vaccine 2018-01-15 Completed [facility] Recombinant 00:00:00 [facility] Zoster Vaccine 2018-01-15 Completed [facility] Recombinant 00:00:00 [facility] Zoster Vaccine 2018-01-15 Completed [facility] Recombinant 00:00:00 [facility] [place] Zoster Vaccine 2018-01-15 Completed [facility] Recombinant 00:00:00 [facility] Zoster Vaccine 2018-01-15 Completed [facility] Recombinant 00:00:00 [facility] Zoster Vaccine 2018-01-15 Completed [facility] Recombinant 00:00:00 [facility] Zoster Vaccine 2018-01-15 Completed [facility] Recombinant 00:00:00 [facility] Zoster Vaccine 2018-01-15 Completed [facility] Recombinant 00:00:00 [facility] [place] Zoster Vaccine 2018-01-15 Completed [facility] Recombinant 00:00:00 [facility] Zoster Vaccine 2018-01-15 Completed [facility] Recombinant 00:00:00 [facility] Zoster Vaccine 2018-01-15 Completed [facility] Recombinant 00:00:00 [facility] Zoster Vaccine 2018-01-15 Completed [facility] Recombinant 00:00:00 [facility] Zoster Vaccine 2018-01-15 Completed [facility] Recombinant 00:00:00 [facility] Zoster Vaccine 2018-01-15 Completed [facility] Recombinant 00:00:00 [facility] Zoster Vaccine 2018-01-15 Completed [facility] Recombinant 00:00:00 [facility] Zoster Vaccine 2018-01-15 Completed [facility] Recombinant 00:00:00 [facility] Zoster Vaccine 2018-01-15 Completed [facility] Recombinant 00:00:00 [facility] Zoster Vaccine 2018-01-15 Completed [facility] Recombinant 00:00:00 [facility] Zoster Vaccine 2018-01-15 Completed [facility] Recombinant 00:00:00 [facility] Zoster Vaccine 2018-01-15 Completed [facility] Recombinant 00:00:00 [facility] Zoster Vaccine 2018-01-15 Completed [facility] Recombinant 00:00:00 [facility] Zoster Vaccine 2018-01-15 Completed [facility] Recombinant 00:00:00 [facility] Zoster Vaccine 2018-01-15 Completed [facility] Recombinant 00:00:00 [facility] Zoster Vaccine 2018-01-15 Completed [facility] Recombinant 00:00:00 [facility] [place] Zoster Vaccine 2018-01-15 Completed [facility] Recombinant 00:00:00 [facility] Zoster Vaccine 2018-01-15 Completed [facility] Recombinant 00:00:00 [facility] Zoster Vaccine 2018-01-15 Completed [facility] Recombinant 00:00:00 [facility] Zoster Vaccine 2018-01-15 Completed [facility] Recombinant 00:00:00 [facility] Zoster Vaccine 2018-01-15 Completed [facility] Recombinant 00:00:00 [facility] Zoster Vaccine 2018-01-15 Completed [facility] Recombinant 00:00:00 [facility] Zoster Vaccine 2018-01-15 Completed [facility] Recombinant 00:00:00 [facility] Zoster Vaccine 2018-01-15 Completed [facility] Recombinant 00:00:00 [facility] Zoster Vaccine 2018-01-15 Completed [facility] Recombinant 00:00:00 [facility] Zoster Vaccine 2018-01-15 Completed [facility] Recombinant 00:00:00 [facility] Pneumococcal 2017-01-04 Completed [facility] o f Polysaccharide, 00:00:00 [place] [facility] PPSV23 (PNEUMOVAX) Branch Pneumococcal 2017-01-04 Completed [facility] o f Polysaccharide, 00:00:00 [place] [facility] PPSV23 (PNEUMOVAX) Branch Pneumococcal 2017-01-04 Completed [facility] o f Polysaccharide, 00:00:00 [place] [facility] PPSV23 (PNEUMOVAX) Branch Pneumococcal 2017-01-04 Completed [facility] o f Polysaccharide, 00:00:00 [place] [facility] PPSV23 (PNEUMOVAX) Branch Pneumococcal 2017-01-04 Completed [facility] o f Polysaccharide, 00:00:00 [place] [facility] PPSV23 (PNEUMOVAX) Branch Pneumococcal 2017-01-04 Completed [facility] o f Polysaccharide, 00:00:00 [place] [facility] PPSV23 (PNEUMOVAX) Branch Pneumococcal 2017-01-04 Completed [facility] o f Polysaccharide, 00:00:00 [place] [facility] PPSV23 (PNEUMOVAX) Branch Pneumococcal 2017-01-04 Completed [facility] o f Polysaccharide, 00:00:00 [place] [facility] PPSV23 (PNEUMOVAX) Branch Pneumococcal 2017-01-04 Completed [facility] o f Polysaccharide, 00:00:00 [place] [facility] PPSV23 (PNEUMOVAX) Branch Pneumococcal 2017-01-04 Completed [facility] o f Polysaccharide, 00:00:00 [place] [facility] PPSV23 (PNEUMOVAX) Branch Pneumococcal 2017-01-04 Completed [facility] o f Polysaccharide, 00:00:00 [place] [facility] PPSV23 (PNEUMOVAX) Branch Pneumococcal 2017-01-04 Completed [facility] o f Polysaccharide, 00:00:00 [place] [facility] PPSV23 (PNEUMOVAX) Branch Pneumococcal 2017-01-04 Completed [facility] o f Polysaccharide, 00:00:00 [place] [facility] PPSV23 (PNEUMOVAX) Branch Pneumococcal 2017-01-04 Completed [facility] o f Polysaccharide, 00:00:00 [place] [facility] PPSV23 (PNEUMOVAX) Branch Pneumococcal 2017-01-04 Completed [facility] o f Polysaccharide, 00:00:00 [place] [facility] PPSV23 (PNEUMOVAX) Branch Pneumococcal 2017-01-04 Completed [facility] o f Polysaccharide, 00:00:00 [place] [facility] PPSV23 (PNEUMOVAX) Branch Pneumococcal 2017-01-04 Completed [facility] o f Polysaccharide, 00:00:00 [place] [facility] PPSV23 (PNEUMOVAX) Branch Pneumococcal 2017-01-04 Completed [facility] o f Polysaccharide, 00:00:00 [place] [facility] PPSV23 (PNEUMOVAX) Branch Pneumococcal 2017-01-04 Completed [facility] o f Polysaccharide, 00:00:00 [place] [facility] PPSV23 (PNEUMOVAX) Branch Pneumococcal 2017-01-04 Completed [facility] o f Polysaccharide, 00:00:00 [place] [facility] PPSV23 (PNEUMOVAX) Branch Pneumococcal 2017-01-04 Completed [facility] o f Polysaccharide, 00:00:00 [place] [facility] PPSV23 (PNEUMOVAX) Branch Pneumococcal 2017-01-04 Completed [facility] o f Polysaccharide, 00:00:00 [place] [facility] PPSV23 (PNEUMOVAX) Branch Pneumococcal 2017-01-04 Completed [facility] o f Polysaccharide, 00:00:00 [place] [facility] PPSV23 (PNEUMOVAX) Branch Pneumococcal 2017-01-04 Completed [facility] o f Polysaccharide, 00:00:00 [place] [facility] PPSV23 (PNEUMOVAX) Branch Pneumococcal 2017-01-04 Completed [facility] o f Polysaccharide, 00:00:00 [place] [facility] PPSV23 (PNEUMOVAX) Branch Pneumococcal 2017-01-04 Completed [facility] o f Polysaccharide, 00:00:00 [place] [facility] PPSV23 (PNEUMOVAX) Branch Pneumococcal 2017-01-04 Completed [facility] o f Polysaccharide, 00:00:00 [place] [facility] PPSV23 (PNEUMOVAX) Branch Pneumococcal 2017-01-04 Completed [facility] o f Polysaccharide, 00:00:00 [place] [facility] PPSV23 (PNEUMOVAX) Branch Pneumococcal 2017-01-04 Completed [facility] o f Polysaccharide, 00:00:00 [place] [facility] PPSV23 (PNEUMOVAX) Branch Pneumococcal 2017-01-04 Completed [facility] o f Polysaccharide, 00:00:00 [place] [facility] PPSV23 (PNEUMOVAX) Branch Pneumococcal 2017-01-04 Completed [facility] o f Polysaccharide, 00:00:00 [place] [facility] PPSV23 (PNEUMOVAX) Branch Pneumococcal 2017-01-04 Completed [facility] o f Polysaccharide, 00:00:00 [place] [facility] PPSV23 (PNEUMOVAX) Branch Pneumococcal 2017-01-04 Completed [facility] o f Polysaccharide, 00:00:00 [place] [facility] PPSV23 (PNEUMOVAX) Branch Pneumococcal 2017-01-04 Completed [facility] o f Polysaccharide, 00:00:00 [place] [facility] PPSV23 (PNEUMOVAX) Branch Pneumococcal 2017-01-04 Completed [facility] o f Polysaccharide, 00:00:00 [place] [facility] PPSV23 (PNEUMOVAX) Branch Pneumococcal 2017-01-04 Completed [facility] o f Polysaccharide, 00:00:00 [place] [facility] PPSV23 (PNEUMOVAX) Branch Pneumococcal 2017-01-04 Completed [facility] o f Polysaccharide, 00:00:00 [place] [facility] PPSV23 (PNEUMOVAX) Branch Pneumococcal 2017-01-04 Completed [facility] o f Polysaccharide, 00:00:00 [place] [facility] PPSV23 (PNEUMOVAX) Branch Pneumococcal 2017-01-04 Completed [facility] o f Polysaccharide, 00:00:00 [place] [facility] PPSV23 (PNEUMOVAX) Branch Pneumococcal 2017-01-04 Completed [facility] o f Polysaccharide, 00:00:00 [place] [facility] PPSV23 (PNEUMOVAX) Branch Pneumococcal 2017-01-04 Completed [facility] o f Polysaccharide, 00:00:00 [place] [facility] PPSV23 (PNEUMOVAX) Branch Pneumococcal 2017-01-04 Completed [facility] o f Polysaccharide, 00:00:00 [place] [facility] PPSV23 (PNEUMOVAX) Branch Pneumococcal 2017-01-04 Completed [facility] o f Polysaccharide, 00:00:00 [place] [facility] PPSV23 (PNEUMOVAX) Branch Pneumococcal 2017-01-04 Completed [facility] o f Polysaccharide, 00:00:00 [place] [facility] PPSV23 (PNEUMOVAX) Branch Pneumococcal 2017-01-04 Completed [facility] o f Polysaccharide, 00:00:00 [place] [facility] PPSV23 (PNEUMOVAX) Branch Pneumococcal 2017-01-04 Completed [facility] o f Polysaccharide, 00:00:00 [place] [facility] PPSV23 (PNEUMOVAX) Branch Pneumococcal 2017-01-04 Completed [facility] o f Polysaccharide, 00:00:00 [place] [facility] PPSV23 (PNEUMOVAX) Branch Pneumococcal 2017-01-04 Completed [facility] o f Polysaccharide, 00:00:00 [place] [facility] PPSV23 (PNEUMOVAX) Branch Pneumococcal 2017-01-04 Completed [facility] o f Polysaccharide, 00:00:00 [place] [facility] PPSV23 (PNEUMOVAX) Branch Pneumococcal 2017-01-04 Completed [facility] o f Polysaccharide, 00:00:00 [place] [facility] PPSV23 (PNEUMOVAX) Branch Pneumococcal 2017-01-04 Completed [facility] o f Polysaccharide, 00:00:00 [place] [facility] PPSV23 (PNEUMOVAX) Branch Pneumococcal 2017-01-04 Completed [facility] o f Polysaccharide, 00:00:00 [place] [facility] PPSV23 (PNEUMOVAX) Branch Pneumococcal 2017-01-04 Completed [facility] o f Polysaccharide, 00:00:00 [place] [facility] PPSV23 (PNEUMOVAX) Branch Pneumococcal 2017-01-04 Completed [facility] o f Polysaccharide, 00:00:00 [place] [facility] PPSV23 (PNEUMOVAX) Branch Pneumococcal 2017-01-04 Completed [facility] o f Polysaccharide, 00:00:00 [place] [facility] PPSV23 (PNEUMOVAX) Branch Pneumococcal 2017-01-04 Completed [facility] o f Polysaccharide, 00:00:00 [place] [facility] PPSV23 (PNEUMOVAX) Branch Pneumococcal 2017-01-04 Completed [facility] o f Polysaccharide, 00:00:00 [place] [facility] PPSV23 (PNEUMOVAX) Branch Pneumococcal 2017-01-04 Completed [facility] o f Polysaccharide, 00:00:00 [place] [facility] PPSV23 (PNEUMOVAX) Branch Pneumococcal 2017-01-04 Completed [facility] o f Polysaccharide, 00:00:00 [place] [facility] PPSV23 (PNEUMOVAX) Branch Pneumococcal 2017-01-04 Completed [facility] o f Polysaccharide, 00:00:00 [place] [facility] PPSV23 (PNEUMOVAX) Branch Pneumococcal 2017-01-04 Completed [facility] o f Polysaccharide, 00:00:00 [place] [facility] PPSV23 (PNEUMOVAX) Branch Pneumococcal 2017-01-04 Completed [facility] o f Polysaccharide, 00:00:00 [place] [facility] PPSV23 (PNEUMOVAX) Branch Pneumococcal 2017-01-04 Completed [facility] o f Polysaccharide, 00:00:00 [place] [facility] PPSV23 (PNEUMOVAX) Branch Pneumococcal 2017-01-04 Completed [facility] o f Polysaccharide, 00:00:00 [place] [facility] PPSV23 (PNEUMOVAX) Branch Pneumococcal 2017-01-04 Completed [facility] o f Polysaccharide, 00:00:00 [place] [facility] PPSV23 (PNEUMOVAX) Branch Pneumococcal 2017-01-04 Completed [facility] o f Polysaccharide, 00:00:00 [place] [facility] PPSV23 (PNEUMOVAX) Branch Pneumococcal 2017-01-04 Completed [facility] o f Polysaccharide, 00:00:00 [place] [facility] PPSV23 (PNEUMOVAX) Branch Pneumococcal 2017-01-04 Completed [facility] o f Polysaccharide, 00:00:00 [place] [facility] PPSV23 (PNEUMOVAX) Branch Pneumococcal 2017-01-04 Completed [facility] o f Polysaccharide, 00:00:00 [place] [facility] PPSV23 (PNEUMOVAX) Branch Pneumococcal 2017-01-04 Completed [facility] o f Polysaccharide, 00:00:00 [place] [facility] PPSV23 (PNEUMOVAX) Branch Pneumococcal 2017-01-04 Completed [facility] o f Polysaccharide, 00:00:00 [place] [facility] PPSV23 (PNEUMOVAX) Branch Pneumococcal 2017-01-04 Completed [facility] o f Polysaccharide, 00:00:00 [place] [facility] PPSV23 (PNEUMOVAX) Branch Pneumococcal 2017-01-04 Completed [facility] o f Polysaccharide, 00:00:00 [place] [facility] PPSV23 (PNEUMOVAX) Branch Pneumococcal 2017-01-04 Completed [facility] o f Polysaccharide, 00:00:00 [place] [facility] PPSV23 (PNEUMOVAX) Branch Pneumococcal 2017-01-04 Completed [facility] o f Polysaccharide, 00:00:00 [place] [facility] PPSV23 (PNEUMOVAX) Branch Pneumococcal 2017-01-04 Completed [facility] o f Polysaccharide, 00:00:00 [place] [facility] PPSV23 (PNEUMOVAX) Branch Pneumococcal 2017-01-04 Completed [facility] o f Polysaccharide, 00:00:00 [place] [facility] PPSV23 (PNEUMOVAX) Branch Pneumococcal 2017-01-04 Completed [facility] o f Polysaccharide, 00:00:00 [place] [facility] PPSV23 (PNEUMOVAX) Branch Pneumococcal 2017-01-04 Completed [facility] o f Polysaccharide, 00:00:00 [place] [facility] PPSV23 (PNEUMOVAX) Branch Pneumococcal 2017-01-04 Completed [facility] o f Polysaccharide, 00:00:00 [place] [facility] PPSV23 (PNEUMOVAX) Branch Pneumococcal 2017-01-04 Completed [facility] o f Polysaccharide, 00:00:00 [place] [facility] PPSV23 (PNEUMOVAX) Branch Pneumococcal 2017-01-04 Completed [facility] o f Polysaccharide, 00:00:00 [place] [facility] PPSV23 (PNEUMOVAX) Branch Pneumococcal 2017-01-04 Completed [facility] o f Polysaccharide, 00:00:00 [place] [facility] PPSV23 (PNEUMOVAX) Branch Pneumococcal 2017-01-04 Completed [facility] o f Polysaccharide, 00:00:00 [place] [facility] PPSV23 (PNEUMOVAX) Branch Pneumococcal 2017-01-04 Completed [facility] o f Polysaccharide, 00:00:00 [place] [facility] PPSV23 (PNEUMOVAX) Branch Pneumococcal 2017-01-04 Completed [facility] o f Polysaccharide, 00:00:00 [place] [facility] PPSV23 (PNEUMOVAX) Branch Pneumococcal 2017-01-04 Completed [facility] o f Polysaccharide, 00:00:00 [place] [facility] PPSV23 (PNEUMOVAX) Branch Pneumococcal 2017-01-04 Completed [facility] o f Polysaccharide, 00:00:00 [place] [facility] PPSV23 (PNEUMOVAX) Branch Pneumococcal 2017-01-04 Completed [facility] o f Polysaccharide, 00:00:00 [place] [facility] PPSV23 (PNEUMOVAX) Branch Pneumococcal 2017-01-04 Completed [facility] o f Polysaccharide, 00:00:00 [place] [facility] PPSV23 (PNEUMOVAX) Branch Pneumococcal 2017-01-04 Completed [facility] o f Polysaccharide, 00:00:00 [place] [facility] PPSV23 (PNEUMOVAX) Branch Pneumococcal 2017-01-04 Completed [facility] o f Polysaccharide, 00:00:00 [place] [facility] PPSV23 (PNEUMOVAX) Branch Pneumococcal 2017-01-04 Completed [facility] o f Polysaccharide, 00:00:00 [place] [facility] PPSV23 (PNEUMOVAX) Branch Pneumococcal 2017-01-04 Completed [facility] o f Polysaccharide, 00:00:00 [place] [facility] PPSV23 (PNEUMOVAX) Branch Pneumococcal 2017-01-04 Completed [facility] o f Polysaccharide, 00:00:00 [place] [facility] PPSV23 (PNEUMOVAX) Branch Pneumococcal 2017-01-04 Completed [facility] o f Polysaccharide, 00:00:00 [place] [facility] PPSV23 (PNEUMOVAX) Branch Pneumococcal 2017-01-04 Completed [facility] o f Polysaccharide, 00:00:00 [place] [facility] PPSV23 (PNEUMOVAX) Branch Pneumococcal 2017-01-04 Completed [facility] o f Polysaccharide, 00:00:00 [place] [facility] PPSV23 (PNEUMOVAX) Branch Pneumococcal 2017-01-04 Completed [facility] o f Polysaccharide, 00:00:00 [place] [facility] PPSV23 (PNEUMOVAX) Branch Pneumococcal 2017-01-04 Completed [facility] o f Polysaccharide, 00:00:00 [place] [facility] PPSV23 (PNEUMOVAX) Branch Pneumococcal 2017-01-04 Completed [facility] o f Polysaccharide, 00:00:00 [place] [facility] PPSV23 (PNEUMOVAX) Branch Pneumococcal 2017-01-04 Completed [facility] o f Polysaccharide, 00:00:00 [place] [facility] PPSV23 (PNEUMOVAX) Branch Pneumococcal 2017-01-04 Completed [facility] o f Polysaccharide, 00:00:00 [place] [facility] PPSV23 (PNEUMOVAX) Branch Pneumococcal 2017-01-04 Completed [facility] o f Polysaccharide, 00:00:00 [place] [facility] PPSV23 (PNEUMOVAX) Branch Pneumococcal 2017-01-04 Completed [facility] o f Polysaccharide, 00:00:00 [place] [facility] PPSV23 (PNEUMOVAX) Branch Pneumococcal 2017-01-04 Completed [facility] o f Polysaccharide, 00:00:00 [place] [facility] PPSV23 (PNEUMOVAX) Branch Pneumococcal 2017-01-04 Completed [facility] o f Polysaccharide, 00:00:00 [place] [facility] PPSV23 (PNEUMOVAX) Branch Pneumococcal 2017-01-04 Completed [facility] o f Polysaccharide, 00:00:00 [place] [facility] PPSV23 (PNEUMOVAX) Branch Pneumococcal 2017-01-04 Completed [facility] o f Polysaccharide, 00:00:00 [place] [facility] PPSV23 (PNEUMOVAX) Branch Pneumococcal 2017-01-04 Completed [facility] o f Polysaccharide, 00:00:00 [place] [facility] PPSV23 (PNEUMOVAX) Branch Pneumococcal 2017-01-04 Completed [facility] o f Polysaccharide, 00:00:00 [place] [facility] PPSV23 (PNEUMOVAX) Branch Vital Signs Vital Name Observation Time Observation Value Comments Source Heart rate 2022-10-03 17:15:00 95 /min [facility] Respiratory rate 2022-10-03 17:15:00 18 /min [facility] Oxygen saturation 2022-10-03 17:15:00 99 /min Uni versity of in Arterial blood [place] [facility] Pulse oximetry Branch Systolic blood 2022-10-03 17:14:00 104 mm[Hg] Univer sity of pressure [facility] Diastolic blood 2022-10-03 17:14:00 75 mm[Hg] Unive rsity of [facility] Body temperature 2022-10-03 17:14:00 36.06 [place] [facility] of [facility] Body weight 2022-10-03 09:30:00 88.633 kg [facility] ty [facility] BMI 2022-10-03 09:30:00 34.61 kg/m2 [facility] ty of [facility] Body height 2022-09-28 21:45:00 160 [address] [facility] Systolic blood 2022-09-28 14:27:00 143 mm[Hg] Univer sity of [facility] Diastolic blood 2022-09-28 14:27:00 64 mm[Hg] Unive rsity of [facility] Heart rate 2022-09-28 14:27:00 84 /min [facility] Body height 2022-09-28 14:27:00 160 cm [facility] Body weight 2022-09-28 14:27:00 87.544 kg [facility] BMI 2022-09-28 14:27:00 34.19 kg/m2 Universi ty of [facility] Oxygen saturation 2022-09-28 14:27:00 98 /min Uni versity of in Arterial blood [facility] by Pulse oximetry Branch Systolic blood 2022-09-28 16:22:00 124 mm[Hg] Univer sity of pressure [facility] Diastolic blood 2022-09-28 16:22:00 68 mm[Hg] Unive rsity of [facility] Body temperature 2022-09-28 16:22:00 37.5 [place] [facility] [facility] Body height 2022-09-28 16:22:00 160 cm [facility] Body weight 2022-09-28 16:22:00 89.086 kg [facility] BMI 2022-09-28 16:22:00 34.79 kg/m2 [facility] Systolic blood 2022-09-08 18:39:00 115 mm[Hg] [facility] Diastolic blood 2022-09-08 18:39:00 80 mm[Hg] [facility] Heart rate 2022-09-08 18:39:00 78 /min [facility] Body temperature 2022-09-08 18:39:00 37 [place] [facility] Respiratory rate 2022-09-08 18:39:00 20 /min [facility] Body height 2022-09-08 18:39:00 160 cm [facility] Body weight 2022-09-08 18:39:00 87.544 kg [facility] BMI 2022-09-08 18:39:00 34.19 kg/m2 [facility] Oxygen saturation 2022-09-08 18:39:00 99 /min Uni [facility] in [facility]ial blood [facility] Body height 2022-08-28 20:45:00 160 cm [facility] Body weight 2022-08-28 20:45:00 86.183 kg [facility] BMI 2022-08-28 20:45:00 33.66 kg/m2 [facility] Systolic blood 2022-08-17 21:12:00 115 mm[Hg] [facility] Diastolic blood 2022-08-17 21:12:00 75 mm[Hg] [facility] Heart rate 2022-08-17 21:12:00 85 /min [facility] Body height 2022-08-17 21:12:00 160 cm [facility] Body weight 2022-08-17 21:12:00 86.365 kg [facility] BMI 2022-08-17 21:12:00 33.73 kg/m2 [facility] Oxygen saturation 2022-08-17 21:12:00 97 /min [facility] in [facility] blood [place] [facility] Systolic blood 2022-08-16 23:00:00 141 mm[Hg] Univer sity of pressure [facility] Diastolic blood 2022-08-16 23:00:00 130 mm[Hg] Unive rsity of pressure [facility] Heart rate 2022-08-16 23:00:00 96 /min [facility] Body temperature 2022-08-16 23:00:00 36.89 Paola [facility] Respiratory rate 2022-08-16 23:00:00 14 /min Univ ersity of [facility] Oxygen saturation 2022-08-16 23:00:00 97 /min Uni versity of in Arterial blood [facility] by [facility] Body weight 2022-08-16 21:57:00 87.227 kg [facility] BMI 2022-08-16 21:57:00 37.56 kg/m2 [facility] Body height 2022-08-02 20:50:00 152.4 cm [facility] Body weight 2022-08-02 20:50:00 86.183 kg [facility] BMI 2022-08-02 20:50:00 37.11 kg/m2 [facility] Systolic blood 2022-08-01 14:51:00 126 mm[Hg] Univer sity of pressure [facility] Diastolic blood 2022-08-01 14:51:00 68 mm[Hg] Unive rsity of pressure [facility] Heart rate 2022-08-01 14:51:00 94 /min [facility] Body temperature 2022-08-01 14:51:00 36.61 Paola [facility] Respiratory rate 2022-08-01 14:51:00 18 /min [facility] of [facility] Body height 2022-08-01 14:51:00 152.4 cm [facility] Body weight 2022-08-01 14:51:00 86.183 kg [facility] [place] [facility] [place] BMI 2022-08-01 14:51:00 37.11 kg/m2 [facility] of [facility] Systolic blood 2022-07-21 16:13:00 125 mm[Hg] Univer sity of pressure [facility] Diastolic blood 2022-07-21 16:13:00 85 mm[Hg] [facility] Heart rate 2022-07-21 16:13:00 86 /min [facility] Respiratory rate 2022-07-21 16:13:00 19 /min [facility] Body height 2022-07-21 16:13:00 160 cm [facility] Body weight 2022-07-21 16:13:00 86.183 kg est. in WC [facility] BMI 2022-07-21 16:13:00 33.66 kg/m2 [facility] Oxygen saturation 2022-07-21 16:13:00 99 /min Uni versity of in Arterial blood [place] [facility] Systolic blood 2022-07-20 15:43:00 137 mm[Hg] [facility] Diastolic blood 2022-07-20 15:43:00 71 mm[Hg] [facility] Heart rate 2022-07-20 15:43:00 97 /min [facility] Body temperature 2022-07-20 15:43:00 37 [place] [facility] Respiratory rate 2022-07-20 15:43:00 19 /min [facility] Body weight 2022-07-20 15:43:00 86.546 kg [facility] BMI 2022-07-20 15:43:00 33.80 kg/m2 [facility] Oxygen saturation 2022-07-20 15:43:00 99 /min Uni vers[facility] of in Arterial blood [place] [facility] Systolic blood 2022-07-04 22:14:00 127 mm[Hg] [facility] Diastolic blood 2022-07-04 22:14:00 72 mm[Hg] [facility] Heart rate 2022-07-04 22:14:00 77 /min [facility] Respiratory rate 2022-07-04 22:14:00 18 /min [facility] Oxygen saturation 2022-07-04 22:14:00 100 /min [facility] vers[facility] in Arterial blood [place] [facility] Body temperature 2022-07-04 17:30:00 37.33 [place] [facility] Body weight 2022-07-04 17:30:00 85.684 kg [facility] BMI 2022-07-04 17:30:00 33.46 kg/m2 [facility] Systolic blood 2022-06-20 21:37:00 107 mm[Hg] [facility] Diastolic blood 2022-06-20 21:37:00 64 mm[Hg] [facility] Heart rate 2022-06-20 21:37:00 73 /min [facility] Body temperature 2022-06-20 21:37:00 36.5 [place] [facility] Respiratory rate 2022-06-20 21:37:00 18 /min [facility] Oxygen saturation 2022-06-20 21:37:00 96 /min [facility] vers[facility] in [facility]ial blood [place] [facility] Body weight 2022-06-16 11:00:00 85.73 kg [facility] BMI 2022-06-16 11:00:00 33.48 kg/m2 [facility] Body height 2022-06-15 19:33:00 160 cm [facility] Systolic blood 2022-06-15 20:50:00 139 mm[Hg] [facility] Diastolic blood 2022-06-15 20:50:00 66 mm[Hg] [facility] Respiratory rate 2022-06-15 20:50:00 17 /min [facility] Oxygen saturation 2022-06-15 20:50:00 100 /min Uni vers[facility] in Arterial blood [place] [facility] Body temperature 2022-06-15 19:33:00 36.44 [place] [facility] Body height 2022-06-15 19:33:00 160 cm [facility] Body weight 2022-06-15 19:33:00 86.183 kg [facility] BMI 2022-06-15 19:33:00 33.48 kg/m2 [facility] Body height 2022-06-07 19:08:00 160 cm [facility] Body weight 2022-06-07 19:08:00 86.637 kg [facility] BMI 2022-06-07 19:08:00 33.83 kg/m2 [facility] Systolic blood 2022-05-26 18:56:00 118 mm[Hg] [facility] Diastolic blood 2022-05-26 18:56:00 75 mm[Hg] [facility] Heart rate 2022-05-26 18:44:00 90 /min [facility] Body height 2022-05-26 18:44:00 160 cm [facility] Body weight 2022-05-26 18:44:00 86.864 kg [facility] BMI 2022-05-26 18:44:00 33.92 kg/m2 [facility] Oxygen saturation 2022-05-26 18:44:00 97 /min Uni vers[facility] of in Arterial blood [facility] Systolic blood 2022-05-19 14:00:00 117 mm[Hg] [facility] Diastolic blood 2022-05-19 14:00:00 65 mm[Hg] Unive rsity of [facility] Heart rate 2022-05-19 14:00:00 81 /min [facility] [place] [facility] [place] Body temperature 2022-05-19 14:00:00 36.78 [place] [facility] Respiratory rate 2022-05-19 14:00:00 18 /min [facility] Body weight 2022-05-19 14:00:00 87.091 kg [facility] BMI 2022-05-19 14:00:00 32.96 kg/m2 [facility] Oxygen saturation 2022-05-19 14:00:00 98 /min Uni vers[facility] in Arterial blood [place] [facility] Systolic blood 2022-05-10 19:08:00 131 mm[Hg] [facility] Diastolic blood 2022-05-10 19:08:00 69 mm[Hg] [facility] Heart rate 2022-05-10 19:08:00 88 /min [facility] Body temperature 2022-05-10 19:08:00 37.44 [place] [facility] Respiratory rate 2022-05-10 19:08:00 22 /min [facility] Body height 2022-05-10 19:08:00 162.6 cm [facility] Body weight 2022-05-10 19:08:00 84.369 kg [facility] BMI 2022-05-10 19:08:00 31.93 kg/m2 [facility] Oxygen saturation 2022-05-10 19:08:00 98 /min Uni vers[facility] of in Ar[facility]ial blood [facility] Systolic blood 2022-04-13 15:16:00 107 mm[Hg] [facility] Diastolic blood 2022-04-13 15:16:00 64 mm[Hg] [facility] Heart rate 2022-04-13 15:16:00 79 /min [facility] Body temperature 2022-04-13 15:16:00 36.17 [place] [facility] Respiratory rate 2022-04-13 15:16:00 18 /min [facility] Body height 2022-04-13 15:16:00 160 cm [facility] Body weight 2022-04-13 15:16:00 85.684 kg [facility] BMI 2022-04-13 15:16:00 33.46 kg/m2 [facility] Oxygen saturation 2022-04-13 15:16:00 97 /min Uni vers[facility] of in Arterial blood [place] [facility] Systolic blood 2022-04-12 19:55:00 123 mm[Hg] [facility] Diastolic blood 2022-04-12 19:55:00 84 mm[Hg] [facility] Heart rate 2022-04-12 19:55:00 91 /min [facility] Body height 2022-04-12 19:55:00 160 cm Universi [facility] Body weight 2022-04-12 19:55:00 85.276 kg [facility] BMI 2022-04-12 19:55:00 33.30 [facility] Oxygen saturation 2022-04-12 19:55:00 98 /min Uni versity of in Arterial blood [facility] by [facility] Branch Systolic blood 2022-04-06 21:00:00 123 mm[Hg] Univer sity of [facility] Diastolic blood 2022-04-06 21:00:00 86 mm[facility]Hg[facility] 2022-04-06 21:00:00 85 /min [facility] Body temperature 2022-04-06 21:00:00 36.67 [facility] 2022-04-06 21:00:00 160 cm [facility] Body weight 2022-04-06 21:00:00 85.458 kg [facility] BMI 2022-04-06 21:00:00 33.37 kg/m2 [facility] Oxygen saturation 2022-04-06 21:00:00 97 /min Uni versity of in Arterial blood [facility] by [facility] Procedures Procedure Date / Time Performing Clinician Source Performed POCT GLUCOSE (AUTOMATED) 2022-10-03 18:20:00 Myrna Renteria [facility] POCT GLUCOSE (AUTOMATED) 2022-10-03 14:18:00 Myrna Renteria [facility] POCT GLUCOSE (AUTOMATED) 2022-10-03 14:16:00 Myrna Renteria [facility] BASIC METABOLIC PANEL (NA, 2022-10-03 10:49:00 Ramiro Monsivais [facility] K, CL, CO2, GLUCOSE, BUN, Medica l Branch CREATININE, [place]) CBC WITH DIFF 2022-10-03 10:49:00 Ramiro Monsivais [facility] POCT GLUCOSE (AUTOMATED) 2022-10-03 03:17:00 Myrna Renteria [facility] POCT GLUCOSE (AUTOMATED) 2022-10-02 22:29:00 [facility]) 2022-10-02 17:33:00 [facility] ([facility]OMATED) 2022-10-02 13:54:00 Myrna Renteria [facility] BASIC METABOLIC PANEL (NA, 2022-10-02 09:30:00 [facility], CO2, GLUCOSE, BUN, Medica [facility] Branch CREATININE, CA) CBC WITH DIFF 2022-10-02 09:30:00 Ramiro Monsivais [facility] POCT GLUCOSE (AUTOMATED) 2022-10-02 03:03:00 [facility] ([facility]OMATED) 2022-10-01 22:28:00 Myrna Renteria [facility] POCT GLUCOSE (AUTOMATED) 2022-10-01 17:14:00 Myrna Renteria [facility] POCT GLUCOSE (AUTOMATED) 2022-10-01 14:11:00 [facility] ([facility]OMATED) 2022-09-30 22:46:00 [facility] ([facility]OMATED) 2022-09-30 17:39:00 Myrna Renteria [facility] POCT GLUCOSE (AUTOMATED) 2022-09-30 13:53:00 Myrna Renteria [facility] BASIC METABOLIC PANEL (NA, 2022-09-30 09:30:00 Ramiro Monsivais [facility] K, CL, CO2, GLUCOSE, BUN, Medica l Branch CREATININE, CA) CBC WITH DIFF 2022-09-30 09:30:00 [facility] 2022-09-30 09:30:00 Hill Loco [facility] POCT GLUCOSE (AUTOMATED) 2022-09-30 02:30:00 [facility] ([facility]OMATED) 2022-09-29 22:53:00 [facility] (AUTOMATED) 2022-09-29 17:48:00 Myra, Myrna [facility] XR CHEST 2 VW 2022-09-29 17:38:12 Myrna Renteria [facility] POCT GLUCOSE (AUTOMATED) 2022-09-29 13:49:00 Myrna Renteria [facility] CT FOOT RIGHT W CONTRAST 2022-09-29 10:09:45 Donell Mosher [facility] CT FOOT LEFT W CONTRAST 2022-09-29 10:02:05 Donell Mosher [facility] PHOSPHORUS 2022-09-29 09:45:00 Vidhi [facility] CREATINE KINASE 2022-09-29 09:45:00 Vidhi talia [facility] MAGNESIUM 2022-09-29 09:45:00 Vidhi [facility] TROPONIN I 2022-09-29 09:45:00 Vidhi [facility] COMP. METABOLIC PANEL 2022-09-29 09:45:00 Donell Mosher [facility] ([id number]) [facility] SEDIMENTATION RATE 2022-09-29 09:45:00 Donell Mosher [facility] CBC WITH DIFF 2022-09-29 09:45:00 Vidhi talia [facility] PROTHROMBIN TIME / INR 2022-09-29 09:45:00 Donell Mosher [facility] N-TERMINAL PRO-BNP 2022-09-29 09:45:00 Donell Mosher [facility] PROCALCITONIN 2022-09-29 09:45:00 Donell Mosher [facility] XR CHEST 1 VW 2022-09-29 06:59:00 Donell Mosher [facility] CT KNEE RIGHT W CONTRAST 2022-09-29 06:59:00 Donell Mosher [facility] URINE DRUG (IMMUNOASSAY) - 2022-09-29 05:54:00 Donell Mosher [facility] COMPREHENSIVE DRUG SCREEN [facility] PNEUMOCOCCAL ANTIGEN 2022-09-29 05:54:00 Donell Mosher [facility] UREA NITROGEN, URINE RANDOM 2022-09-29 05:54:00 Donell Mosher [facility] SODIUM, URINE RANDOM 2022-09-29 05:54:00 Donell Mosher [facility] PROTEIN CREAT RATIO URINE 2022-09-29 05:54:00 Donell Mosher [facility] URINALYSIS 2022-09-29 05:53:00 Donell Mosher [facility] URINE CULTURE 2022-09-29 05:53:00 Vidhi talia [facility] RESPIRATORY PANEL BY PCR 2022-09-29 05:52:00 Donell Mosher [facility] COVID-19 (ID NOW RAPID 2022-09-29 05:52:00 Donell Mosher [facility] TESTING) Medical Branch LAB ONLY COVID 2022-09-29 05:52:00 Donell Mosher [facility] POCT GLUCOSE (AUTOMATED) 2022-09-29 03:13:00 Myrna Renteria [facility] POCT GLUCOSE (AUTOMATED) 2022-09-28 22:55:00 Myrna Renteria [facility] MAGNESIUM 2022-09-28 21:56:00 Myrna Renteria [facility] TROPONIN I 2022-09-28 21:56:00 Myrna Renteria [facility] THYROID STIMULATING HORMONE 2022-09-28 21:56:00 Donell Mosher [facility] BASIC METABOLIC PANEL (NA, 2022-09-28 21:56:00 Myrna Renteria [facility] K, CL, CO2, GLUCOSE, BUN, Medica l Branch CREATININE, [place]) LIPID PANEL ([id number])(TOTAL 2022-09-28 21:56:[address] [facility] CHOLESTEROL, TRIGLYCERIDES, [facility] marily Branch HDL) CBC WITH DIFF 2022-09-28 21:56:00 Myrna Renteria [facility] GLYCOSYLATED HEMOGLOBIN 2022-09-28 21:56:00 Myrna Renteria [facility] (A1C) [facility] N-TERMINAL PRO-BNP 2022-09-28 21:56:00 Myrna Renteria [facility] CONSENT/REFUSAL FOR 2022-09-28 18:40:02 [facility] DIAGNOSIS AND TREATMENT [place] [facility] POCT URINALYSIS 2022-09-28 00:00:00 [facility] 2022-09-08 18:21:00 Khadijah Lopez [facility] CONSENT/REFUSAL FOR 2022-09-08 18:20:08 Doctor Unassbryan, [facility] DIAGNOSIS AND TREATMENT [place] [facility] [place] CBC WITH DIFF 2022-09-08 18:09:00 Khadijah Lopez [facility] PROTHROMBIN TIME / INR 2022-09-08 18:09:00 Khadijah Lopez [facility] ACTIVATED PARTIAL THRMPLAS 2022-09-08 18:09:00 Khadijah Lopez [facility] XR CHEST 2 VW 2022-09-08 16:44:34 Khadijah Lopez [facility] ASSIGNMENT OF BENEFITS 2022-09-08 16:14:19 Doctor Unassigned, [facility] Name [facility] [place] XR CHEST 1 VW 2022-08-16 22:48:58 Singer [facility] URINALYSIS 2022-08-16 22:21:00 Varma [facility] TROPONIN I 2022-08-16 22:11:00 Singer [facility] COMP. METABOLIC PANEL 2022-08-16 22:11:00 Melvin Varma [facility] ([id number]) [facility] CBC WITH DIFF 2022-08-16 22:11:00 Singer [facility] N-TERMINAL PRO-BNP 2022-08-16 22:11:00 Singer Melvin [facility] CONSENT/REFUSAL FOR 2022-08-16 21:45:54 [facility]nea [facility] DIAGNOSIS AND TREATMENT [place] [facility] [place] POCT URINALYSIS W/O 2022-08-01 00:00:00 Abhilash Fonseca [facility] SPECIFIC GRAVITY [facility] URIC ACID 2022-07-26 20:13:00 Khadijah Lopez [facility] SEDIMENTATION RATE 2022-07-26 20:13:00 Khadijah Lopez [facility] CBC WITH DIFF 2022-07-26 20:13:00 Khadijah Lopez [facility] EKG-12 LEAD 2022-07-04 18:08:20 Padmaja Luis [facility] CONSENT/REFUSAL FOR 2022-07-04 17:26:33 Doctor Unassigned, [facility] DIAGNOSIS AND TREATMENT [place] [facility] [id number] 2022-06-21 00:00:00 [facility] [id number] 2022-06-21 00:00:00 [facility] POCT GLUCOSE (AUTOMATED) 2022-06-20 17:34:00 TeloveimuahSean Uni [facility] BASIC METABOLIC PANEL (NA, 2022-06-20 15:51:00 TeqwimuahSean U [facility] K, CL, CO2, GLUCOSE, BUN, Medica l Branch CREATININE, [place]) CBC WITH DIFF 2022-06-20 15:51:00 Sean Madrid [facility] POCT GLUCOSE (AUTOMATED) 2022-06-20 13:34:00 TeqwimkieranhAmanday Uni [facility] POCT GLUCOSE (AUTOMATED) 2022-06-20 02:58:00 TeqwimuahAmanday [facility] POCT GLUCOSE (AUTOMATED) 2022-06-20 02:30:00 Teqwimuah, Sean [facility] POCT GLUCOSE (AUTOMATED) 2022-06-19 23:10:00 Teqwimuah, Sean [facility] POCT GLUCOSE (AUTOMATED) 2022-06-19 18:24:00 Teqwimuah, Sean [facility] POCT GLUCOSE (AUTOMATED) 2022-06-19 18:24:00 Teqwimuah, Sean [facility] POCT GLUCOSE (AUTOMATED) 2022-06-19 13:18:00 Sean Madrid [facility] POCT GLUCOSE (AUTOMATED) 2022-06-19 13:18:00 Amanda Madridy [facility] POCT GLUCOSE (AUTOMATED) 2022-06-19 02:16:00 Sean Madrid [facility] POCT GLUCOSE (AUTOMATED) 2022-06-19 02:16:00 Sean Madrid [facility] POCT GLUCOSE (AUTOMATED) 2022-06-18 22:22:00 Sean Madrid [facility] POCT GLUCOSE (AUTOMATED) 2022-06-18 22:22:00 Sean Madrid Uni [facility]ity of [facility] XR FOOT 3+ VW LEFT 2022-06-18 18:46:04 Sean Madrid [facility] XR FOOT 3+ VW LEFT 2022-06-18 18:46:04 Sean Madrid [facility] POCT GLUCOSE (AUTOMATED) 2022-06-18 18:13:00 Sean Madrid [facility] POCT GLUCOSE (AUTOMATED) 2022-06-18 18:13:00 Sean Madrid [facility] POCT GLUCOSE (AUTOMATED) 2022-06-18 14:33:00 Sean Madrid [facility] POCT GLUCOSE (AUTOMATED) 2022-06-18 14:33:00 Sean Madrid [facility] POCT GLUCOSE (AUTOMATED) 2022-06-18 02:33:00 Amanda Madridy [facility] POCT GLUCOSE (AUTOMATED) 2022-06-18 02:33:00 Amanda Madridy [facility] POCT GLUCOSE (AUTOMATED) 2022-06-17 22:49:00 Amanda Madridy [facility] POCT GLUCOSE (AUTOMATED) 2022-06-17 22:49:00 Amanda Madridy [facility] POCT GLUCOSE (AUTOMATED) 2022-06-17 17:36:00 Teqwimuah, Sean [facility] POCT GLUCOSE (AUTOMATED) 2022-06-17 17:36:00 Teqwimuah, Sean [facility] POCT GLUCOSE (AUTOMATED) 2022-06-17 13:35:00 Teqwimuah, Sean [facility] POCT GLUCOSE (AUTOMATED) 2022-06-17 13:35:00 Teqwimuah, Sean [facility] POCT GLUCOSE (AUTOMATED) 2022-06-17 02:33:00 Teqwimuah, Sean [facility] POCT GLUCOSE (AUTOMATED) 2022-06-17 02:33:00 Teqwimuah, Sean [facility] POCT GLUCOSE (AUTOMATED) 2022-06-16 22:48:00 Teqwimuah, Sean [facility] POCT GLUCOSE (AUTOMATED) 2022-06-16 22:48:00 Teqwimuah, Sean [facility] POCT GLUCOSE (AUTOMATED) 2022-06-16 18:11:00 Teqwimuah, Sean [facility] POCT GLUCOSE (AUTOMATED) 2022-06-16 18:11:00 Teqwimuah, Sean Uni versity of [facility] POCT GLUCOSE (AUTOMATED) 2022-06-16 14:36:00 Teqwimuah, Sean Uni versity of [facility] POCT GLUCOSE (AUTOMATED) 2022-06-16 14:36:00 Teqwimuah, Sean Uni versity of [facility] BASIC METABOLIC PANEL (NA, 2022-06-16 11:11:00 Teqwimkieranh, Sean [facility] [place] K, CL, CO2, GLUCOSE, BUN, Medica l Branch CREATININE, CA) CBC WITH DIFF 2022-06-16 11:11:00 TeSean astorga [facility] o f [facility] BASIC METABOLIC PANEL (NA, 2022-06-16 11:11:00 Teqwimuah, Sean [facility] [place] K, CL, CO2, GLUCOSE, BUN, Medica l Branch CREATININE, CA) CBC WITH DIFF 2022-06-16 11:11:00 Sean [place] [facility] POCT GLUCOSE (AUTOMATED) 2022-06-16 01:56:00 Erika [place] [facility] POCT GLUCOSE (AUTOMATED) 2022-06-16 01:56:00 Sean [place] [facility] XR CHEST 1 VW 2022-06-15 23:31:24 Roberto [facility] [place] XR CHEST 1 VW 2022-06-15 23:31:24 Roberto [facility] [place] ELECTROPHYSIOLOGY PROCEDURE 2022-06-15 22:25:00 [facility] ELECTROPHYSIOLOGY PROCEDURE 2022-06-15 22:25:00 [facility] CATH PROCEDURE LOG 2022-06-15 21:08:14 Vinayak [facility] CATH PROCEDURE LOG 2022-06-15 21:08:14 Vinayak [facility] BASIC METABOLIC PANEL (NA, 2022-06-15 18:53:00 [facility]per [facility], CL, CO2, GLUCOSE, BUN, Medica l Branch CREATININE, CA) CBC WITH DIFF 2022-06-15 18:53:00 Vinayak Prosper [facility] PROTHROMBIN TIME / INR 2022-06-15 18:53:00 Prosper Licea [facility] ACTIVATED PARTIAL THRMPLAS 2022-06-15 18:53:00 Prosper Licea U [facility] BASIC METABOLIC PANEL (NA, 2022-06-15 18:53:00 Prosper Licea U [facility] K, CL, CO2, GLUCOSE, BUN, Medica l Branch CREATININE, CA) CBC WITH DIFF 2022-06-15 18:53:[address] [facility] PROTHROMBIN TIME / INR 2022-06-15 18:53:00 Prosper Licea [facility] ACTIVATED PARTIAL THRMPLAS 2022-06-15 18:53:00 Prosper Licea [facility] [facility] [place] MODE Medical Branch ASSIGNMENT OF BENEFITS 2022-06-15 17:51:25 Doctor Unassigned, [facility] [place] [facility] ASSIGNMENT OF BENEFITS 2022-05-19 13:50:27 Doctor Unassigned, [facility] Name Medical Branch XR SHOULDER 2+ VW LEFT 2022-05-10 19:58:11 Johan Gates [facility] CONSENT/REFUSAL FOR 2022-05-10 18:43:23 Doctor [facility] DIAGNOSIS AND TREATMENT [place] [facility] [place] MEDICATION CORRESPONDENCE 2022-04-27 05:01:00 Doctor Doran [facility] [place] [facility] [place] REFERRAL- REQUEST/RESPONSE 2022-03-31 05:01:00 Doctor Andreea , [facility] Name Medical [place] Plan of Care Planned Activity Planned Date Details Comments Source Future Scheduled 2022-10-03 COVID-19 VACCINE (#1) [facility] Test 14:05:44 [code = COVID-19 VACCINE (#1)] Future Scheduled 2022-10-03 BREAST CANCER [facility] Test 14:05:44 SCREENING [code = BREAST CANCER SCREENING] Future Scheduled 2022-10-03 COLONOSCOPY SCREENING [facility] Test 14:05:44 [code = COLONOSCOPY SCREENING] Future Scheduled 2022-10-03 SHINGLES VACCINES (1 Met [facility] Test 14:05:44 of 2) [code = SHINGLES VACCINES (1 of 2)] Future Scheduled 2022-10-03 65+ P[facility]OCOCCAL [facility] Test 14:05:44 VACCINE (1 - PCV) [code = 65+ PNEUMOCOCCAL VACCINE (1 - PCV)] Future Scheduled 2022-10-03 INFLUENZA VACCINE [facility] Test 14:05:44 [code = INFLUENZA VACCINE] Future Scheduled 2022-06-10 HEPATITIS B VACCINES Met [facility] Test 13:46:02 (1 of 3 - 3-dose series) [code = HEPATITIS B VACCINES (1 of 3 - 3-dose series)] Future Scheduled 2022-06-10 COVID-19 VACCINE (#1) [facility] Test 13:46:02 [code = COVID-19 VACCINE (#1)] Future Scheduled 2022-06-10 BREAST CANCER [facility] Test 13:46:02 SCREENING [code = BREAST CANCER SCREENING] Future Scheduled 2022-06-10 COLONOSCOPY SCREENING [facility] Test 13:46:02 [code = COLONOSCOPY SCREENING] Future Scheduled 2022-06-10 SHINGLES VACCINES (1 Met [facility] Hospital Test 13:46:02 of 2) [code = SHINGLES VACCINES (1 of 2)] Future Scheduled 2022-06-10 65+ PNEUMOCOCCAL [facility] Test 13:46:02 VACCINE (1 - PCV) [code = 65+ PNEUMOCOCCAL VACCINE (1 - PCV)] Future Scheduled 2022-06-10 INFLUENZA VACCINE Method ist Hospital Test 13:46:02 [code = INFLUENZA VACCINE] Medication 2022-10-04 KCL 20 mEq tablet [facility] 00:00:00 [code = 2931082] Medical Bra [facility] Encounters Start End Encounter Admission Attending Care Care Encounter Source Date/Time Date/Time Type Type Clinicians Facility Department ID 2022-08-30 Inpatient Loc LOPEZ [facility] SOR [id number] Univers 13:27:36 KHADIJAH [facility] 2021-08-17 Outpatient R JENNIFER [facility] STOKER ERECTOR [id number] Univers 13:54:32 [facility] 2021-08-09 Outpatient R JENNIFER [facility] STOK[employer] ERECTOR [id number] Univers 02:22:26 [facility] 2021-06-07 Outpatient R JENNIFER [facility] VLS [id number] Univers 07:39:01 JESSA [facility] 2021-06-06 Emergency [facility] [id number] Univers 10:09[facility]26 [facility]-06-06 Emergency [facility] [id number] Univers 01:54:03 ity [facility] 2021-06-04 Emergency [facility] [id number] Univers 07:23:41 ity [facility] 2021-06-03 Emergency [facility] [id number] Univers 00:13:37 [facility] 2021-06-02 Outpatient JENNIFER [facility] [id number] Univers 14:58:03 JESSA [facility] 2022-11-30 2022-11-30 Outpatient Loc LICEA [facility] [id number] Univers 10:40:00 10:40:00 PROSPER ity [facility] 2022-11-28 2022-11-28 [id number] Univers 10:30:00 10:30:00 YAN rees [facility] 2022-11-14 2022-11-14 [facility] [id number] Univers 10:30:00 10:30:00 YAN ity [facility] 2022-09-28 2022-10-03 [facility] [id number] Univers 14:23:00 13:16:00 MYRNA rees [facility] 2022-09-28 2022-10-03 [facility] 1.2.840.114 [id number] Univers 14:23:00 13:16:00 Encounter Myrna BUDDY 350.1.13.10 [place] [id number] [address] 2022-10-02 2022-10-02 [facility]phone [facility] 1.2.146.515 [id number] Univers 00:00:00 00:00:00 Shiwan [place] 350.1.13.10 i [place] [id number] [address] 2022-10-02 2022-10-02 Telephone [facility] 1.2.734.677 [id number] Univers 00:00:00 00:00:00 Shiwan [place] 350.1.13.10 i [place] [id number] Co dic[address] 2022-09-29 2022-09-29 Telephone [facility] 1.2.157.369 [id number] Univers 00:00:00 00:00:00 Shiwan [place] 350.1.13.10 i [place] [phone] Co dic[address] 2022-09-28 2022-09-28 Outpatient [facility] [id number] Univers 15:30:00 15:30:00 AYN rees [facility] 2022-09-28 2022-09-28 [facility] [id number] Univers 11:00:00 14:22:00 HILL rees o f [facility] 2022-09-28 2022-09-28 Office [facility] 1.2.840.114 [id number] Univers 08:00:00 11:34:40 Visit Yan [facility] 350.1.13.10 it y of [facility] 4.2.7.2.686 Sal as SHERRIE?BLEA [id number] Co benedicto KAPLAN [address] [place] [address] OFFICE [facility] 2022-09-28 2022-09-28 Office [facility] 1.2.840.114 [id number] Univers 10:20:00 10:40:00 Visit Yangsameer ADAMSONTATUM 350.1.13.10 ity of [facility] [place] [id number] [address] 2022-09-28 2022-09-28 Outpatient Loc JOCELIN [facility] [id number] Univers 10:30:00 10:30:00 YAN rees [facility] 2022-09-27 2022-09-27 Telephone [facility] 1.2.064.300 [id number] Univers 00:00:00 00:00:00 Hill ADAMSONTATUM 350.1.13.10 ity of [facility] [place] [id number] Co jose[address] 2022-09-25 2022-09-25 Telephone [facility] 1.2.130.222 [id number] Univers 00:00:00 00:00:00 Hill NAYLOR 350.1.13.10 ity of [facility] [place] [id number] [address] 2022-09-25 2022-09-25 Telephone [facility] 1.2.840.114 [id number] Univers 00:00:00 00:00:00 Khadijah Ahuja HEALTH 350.1.13.10 it y of [place] 4.2.7.2.686 Sal as SHERRIE?BLEA [id number] Co benedicto KAPLAN [address] [facility] OFFICE [facility] 2022-09-22 2022-09-22 Telephone [facility] 1.2.840.114 10 [id number] Univers 00:00:00 00:00:00 Khadijah Ahuja HEALTH 350.1.13.10 it y of [place] 4.2.7.2.686 Sal as SHERRIE?BLEA [phone] Co benedicto KAPLAN 198 [facility] OFFICE [facility] 2022-09-22 2022-09-22 Telephone [facility] 1.2.840.114 10 [id number] Univers 00:00:00 00:00:00 Khadijah Ahuja HEALTH 350.1.13.10 it y of [place] 4.2.7.2.686 Sal as SHERRIE?BLEA [id number] Co benedicto KAPLAN 198 [facility] 2022-09-19 2022-09-19 Telephone [facility] 1.2.707.908 [id number] Univers 00:00:00 00:00:00 Chyna [place] 350.1.13.10 i [place] [id number] Co benedicto NAL 085 [facility] 2022-09-18 2022-09-18 Telephone [facility] 1.2.005.015 [id number] Univers 00:00:00 00:00:00 Prosper [place] 350.1.13.10 i [place] [id number] Co benedicto NAL 059 [facility] 2022-09-14 2022-09-14 Outpatient R JAMILA [facility] [id number] Univers 10:30:00 10:30:00 SABRINA rees [facility] 2022-09-14 2022-09-14 Telephone [facility] 1.2.272.579 [id number] Univers 00:00:00 00:00:00 Prosper [place] 350.1.13.10 i ty of [facility] [place] [phone] Me dical NAL 059 [facility] 2022-09-13 2022-09-13 Telephone [facility] 1.2.840.114 10 [id number] Univers 00:00:00 00:00:00 Khadijah Ahuja [facility] 350.1.13.10 it y of [facility] 4.2.7.2.686 Sal as SHERRIE?BLEA [id number] Co benedicto KAPLAN [address] [facility] OFFICE [facility] 2022-09-12 2022-09-12 Telephone [facility] 1.2.840.114 10 [id number] Univers 00:00:00 00:00:00 Khadijah Ahuja HEALTH 350.1.13.10 it y of [facility] 4.2.7.2.686 Sal as SHERRIE?BLEA [id number] Co benedicto KAPLAN 198 [facility] 2022-09-11 2022-09-11 Telephone [facility] 1.2.840.114 10 [id number] Univers 00:00:00 00:00:00 Khadijah Ahuja [facility] 350.1.13.10 it y of [facility] 4.2.7.2.686 Sal as SHERRIE?BLEA [id number] Co benedicto KAPLAN 198 [facility] 2022-09-08 2022-09-08 Emergency [facility] 1.2.840.114 [id number] Univers 12:41:00 13:49:00 Shelley NAYL[place] 350.1.13.10 [place] [id number] [facility] [address] [place] 2022-09-08 2022-09-08 Medical Records Tech Vasu, Dionte Lab Main [facility] 1.2.8 40.114 [id number] Univers 12:00:00 12:15:00 Visit Khadijah Lopez 350.1.13.10 ity of [facility] [place] [id number] Co dical NAL 353 [facility] 2022-09-08 2022-09-08 Out[facility] ERT [id number] Univers 12:00:00 12:00:00 KHADIJAH ity of [facility] 2022-09-08 2022-09-08 Hospital [facility] 1.2.840.114 [id number] Univers 10:20:21 10:22:00 Encounter Khadijah NAYLOR 350.1.13.10 ity of [facility] [place] [id number] [facility] [address] [place] 2022-09-08 2022-09-08 Outpatient R [facility] [id number] Univers 10:20:20 10:22:00 KHADIJAH ity [facility] 2022-09-08 2022-09-08 Orders Doctor RINA 1.2.840.114 [id number] Univers 00:00:00 00:00:00 Only Unassigned, JUSTYNA 350.1.13.10 ity of [place] [facility] 4.2.7.2.686 Sal as [phone] [facility] [address] [place] 2022-09-08 2022-09-08 Telephone [facility] 1.2.126.923 [id number] Univers 00:00:00 00:00:00 Sabrina S HEALTH 350.1.13.10 it y of [place] 4.2.7.2.686 Sal as SHERRIE?BLEA [phone] Co dicelvis KAPLAN 198 [facility] OFFICE [facility] 2022-09-08 2022-09-08 Telephone [facility] 1.2.840.114 10 [id number] Univers 00:00:00 00:00:00 Khadijah L HEALTH 350.1.13.10 it y of [facility] 4.2.7.2.686 Sal as SHERRIE?BLEA [id number] Co dicelvis [facility] 198 [facility] OFFICE [facility] 2022-09-08 2022-09-08 Refevelyne Paulino [facility] 1.2.840.114 [id number] Univers 00:00:00 00:00:00 Jerardon BUDDY 350.1.13.10 i ty of [facility] [place] [phone] Co dical NAL 085 [facility] 2022-09-06 2022-09-06 Telephone [facility] 1.2.921.948 [id number] Univers 00:00:00 00:00:00 Yan HEALTH 350.1.13.10 it y of [place] 4.2.7.2.686 Sal as SHERRIE?BLEA [id number] Co dical ROSAURA 044 [facility] 2022-09-04 2022-09-04 Outpatient R MARIAN [facility] [id number] Univers 15:00:00 15:00:00 ANALY rees [facility] 2022-09-01 2022-09-01 [facility] [id number] Univers 10:15:00 13:03:19 KHADIJAH rees [facility] 2022-09-01 2022-09-01 Ancillary Neha Donovan [facility] 1 .2.840.114 [id number] Univers 10:15:00 13:03:19 Visit Khadijah Lopez 350.1.13.10 [place] [phone] Me dical CRICKET 179 [facility] 2022-08-31 2022-08-31 Telephone [facility] 1.2.541.713 [id number] Univers 00:00:00 00:00:00 Yan HEALTH 350.1.13.10 it y of [place] 4.2.7.2.686 Sal as SHERRIE?BLEA [phone] Co dical ROSAURA 044 [facility] 2022-08-30 2022-08-30 Patient [facility] 1.2.840.114 [id number] Univers 00:00:00 00:00:00 Outreach May HEALTH 350.1.13.10 i ty of [place] 4.2.7.2.686 Sal as SHERRIE?BLEA [id number] Co dical COLEENEY 198 [facility] 2022-08-30 2022-08-30 Telephone [facility] 1.2.480.820 [id number] Univers 00:00:00 00:00:00 May HEALTH 350.1.13.10 it y of [place] 4.2.7.2.686 Sal as SHERRIE?BLEA [id number] Me dical KNEY 198 [facility] OFFICE [facility] 2022-08-29 2022-08-29 Outpatient R JAMILA [facility] [id number] Univers 14:45:00 14:45:00 SABRINA [facility] 2022-08-29 2022-08-29 Telephone Jocelin [facility] 1.2.824.032 [id number] Univers 00:00:00 00:00:00 Yan HEALTH 350.1.13.10 it y of [place] 4.2.7.2.686 Sal as SHERRIE?BLEA [id number] Me dical ROSAURA 044 [facility] OFFICE [facility] 2022-08-28 2022-08-28 Outpatient [facility] [id number] Univers 14:45:00 15:56:20 KHADIJAH [facility] 2022-08-28 2022-08-28 Office Sabrina Marino [facility] 1.2.840.114 [id number] Univers 14:45:00 15:56:20 Visit Lopez [facility] 350.1.13.10 ity of [place] 4.2.7.2.686 Sal as SHERRIE?BLEA [id number] Co dical KNEY 198 [facility] OFFICE [facility] 2022-08-28 2022-08-28 [facility] 1.2.840.114 [id number] Univers 00:00:00 00:00:00 Surgery Khadijah L [employer] 350.1.13.10 it y of [place] 4.2.7.2.686 Sal as SHERRIE?BLEA [phone] Me dical KNEY 198 [facility] OFFICE [facility] 2022-08-28 2022-08-28 Cameron Loco [facility] 1.2.840.114 [id number] Univers 00:00:00 00:00:00 Hill [place] 350.1.13.10 ity of [place] [phone] Me dical NAL 059 [facility] 2022-08-25 2022-08-25 Outpatient R JAMILA [facility] [id number] Univers 10:45:00 10:45:00 SABRINA rees [facility] 2022-08-24 2022-08-24 Outpatient R ROBERTO, [facility] [id number] Univers 10:00:00 23:59:00 RUTHIE rees [facility] 2022-08-17 2022-08-17 Outpatient R JOCELIN [facility] [id number] Univers 16:20:00 23:59:00 YAN rees [facility] 2022-08-17 2022-08-17 [facility] 1.2.840.114 [id number] Univers 15:00:00 16:08:33 Visit Yan HEALTH 350.1.13.10 it y of [place] 4.2.7.2.686 Sal as SHERRIE?BLEA [id number] [facility] 0[address] [facility] OFFICE [facility] 2022-08-16 2022-08-16 Emergency X SINGER [facility] ERT [id number] Univers 15:59:00 17:43:00 MELVIN rees [facility] 2022-08-16 2022-08-16 Emergency [facility] 1.2.713.917 [id number] Univers 15:59:00 17:43:00 Melvin NAYLOR 350.1.13.10 i ty of [place] 4.2.7.2.686 [place] [facility] [id number] [address] 2022-08-09 2022-08-09 Telephone Jessica [facility] 1.2.840.114 [id number] Univers 00:00:00 00:00:00 Khadijah L HEALTH 350.1.13.10 it y of [place] 4.2.7.2.686 Sal as SHERRIE?BLEA [id number] [facility] [address] [place] MEDICAL OFFICE [facility] 2022-08-03 2022-08-03 Telephone Jocelin [facility] 1.2.947.881 [id number] Univers 00:00:00 00:00:00 Yan HEALTH 350.1.13.10 it y of [place] 4.2.7.2.686 Sal as SHERRIE?BLEA [id number] Co benedicto [facility] [address] [place] MEDICAL OFFICE BUILDING 2022-08-02 2022-08-02 Office Sabrina Marino [facility] 1.2.840.114 [id number] Univers 14:45:00 15:00:00 Visit Khadijah Lopez [facility] 350.1.13.10 ity of [place] 4.2.7.2.686 Sal as SHERRIE?BLEA [phone] Co dical [address] OFFICE [facility] 2022-08-02 2022-08-02 Outpatient R JESSICA [facility] [id number] Univers 14:45:00 14:45:00 [facility] 2022-08-01 2022-08-01 Outpatient R ABHILASH FONSECA [facility] [id number] Univers 08:30:00 09:26:08 ity [facility] 2022-08-01 2022-08-01 Office Abhilash Fonseca [facility] 1.2.985.402 [id number] Univers 08:30:00 09:26:08 [facility] 350.1.13.10 i ty [facility] [place]2.7.2.[place] [phone] Co dicelvis [place] [id number] Branch [facility] 2022-07-28 2022-07-28 Outpatient R JOCELIN [facility] [id number] Univers 09:30:00 09:30:00 YAN [facility] 2022-07-28 2022-07-28 Outpatient R VINAYAK [facility] [id number] Univers 08:20:00 08:20:00 [facility] 2022-07-28 2022-07-28 Outpatient R VINAYAK [facility] [id number] Univers 08:20:00 08:20:00 PROSPER [facility] 2022-07-28 2022-07-28 Outpatient R VINAYAK [facility] [id number] Univers 08:20:00 08:20:[address] [facility] 2022-07-27 2022-07-27 Outpatient R ROBERTO [facility] [id number] Univers 09:40:00 09:40:00 RUTHIE [facility] 2022-07-27 2022-07-27 Outpatient R VINAYAK [facility] [id number] Univers 09:40:00 09:40:00 PROSPER ayan [facility] 2022-07-26 2022-07-26 Outpatient SFA JOSE [id number] Nando 15:59:35 15:59:35 [id number] F Kiet 2022-07-26 2022-07-26 Medical Records Tech Lab, Ang - Db [facility] 1.2.840.1 14 [id number] Univers 14:00:00 14:34:06 Visit Khadijah Lopez [facility] 350.1.13.10 ity of [facility] 4.2.7.2.686 Sal as SHERRIE?BLEA [phone] Co joseelvis KAPLAN [address] [facility] OFFICE [facility] 2022-07-26 2022-07-26 Outpatient R JESSICA [facility] [id number] Univers 13:30:00 14:00:06 KHADIJAH ayan [facility] 2022-07-26 2022-07-26 Office [facility] 1.2.594.719 [id number] Univers 13:30:00 14:00:06 Visit Khadijah [facility] 350.1.13.10 it y of [place] 4.2.7.2.686 Sal as SHERRIE?BLEA [id number] Co joseelvis KAPLAN 198 [facility] OFFICE [facility] 2022-07-21 2022-07-21 Outpatient R CHYNA PAULINO [facility] [id number] Univers 10:00:00 10:53:33 CHYNA PAULINO i ty of [facility] 2022-07-21 2022-07-21 Office Joe [facility] 1.2.840.114 [id number] Univers 10:00:00 10:30:00 Visit Chyna NAYLOR 350.1.13.10 i ty of [facility] [place] [phone] [place] ben[place]icto [place] 085 [facility] 2022-07-21 2022-07-21 Refill Joe [facility] 1.2.840.114 [id number] Univers 00:00:00 00:00:00 Chyna NAYLOR 350.1.13.10 i ty [place] [phone] Me dical NAL 085 [facility] 2022-07-20 2022-07-20 Outpatient R VINAYAK [facility] [id number] Univers 09:40:00 10:18:15 [place] ity [facility] 2022-07-20 2022-07-20 [facility] 1.2.840.114 [id number] Univers 09:40:00 10:00:00 Visit Prosper [place] 350.1.13.10 i ty of [facility] [place] [phone] Me dical NAL 059 [facility] 2022-07-17 2022-07-17 Outpatient R JENNIFER [facility] [id number] Univers 11:00:00 11:00:00 [facility] 2022-07-17 2022-07-17 [facility]phone [facility] [id number] Univers 00:00:00 00:00:00 [facility] [employer] 350.1.13.10 [place] [phone] [facility] [address] [place] OFFICE [facility] 2022-07-12 2022-07-12 [facility]ill [facility] [id number] Univers 00:00:00 00:00:00 [employer] HEALTH 350.1.13.10 it y of [place] 4.2.7.2.686 Sal as SHERRIE?BLEA [phone] Co ben[place]icto KAPLAN 198 [facility] OFFICE [facility] 2022-07-07 2022-07-07 Telephone [facility] 1.2.840.114 [id number] Univers 00:00:00 00:00:00 Khadijah L HEALTH 350.1.13.10 it y of [place] 4.2.7.2.686 Sal as SHERRIE?BLEA [phone] [place] ben[place]icto KAPLAN 198 [facility] OFFICE [facility] 2022-07-04 2022-07-04 Emergency X Padmaja LUIS [facility] ERT [id number] Univers 11:33:00 16:18:00 ity [facility] 2022-07-04 2022-07-04 Emergency Toby, K [facility] 1.2.840.114 [id number] Univers 11:33:00 16:18:00 Kalyn BUDDY 350.1.13.10 i ty of [facility] [place].2.7.2.[place] [id number] [facility] [address] [place] 2022-07-04 2022-07-04 Telephone [facility] 1.2.208.355 [id number] Univers 00:00:00 00:00:00 Yan HEALTH 350.1.13.10 it y of [place] 4.2.7.2.686 Sal as SHERRIE?BLEA [id number] Co dical KNEY [address] [place] MEDICAL OFFICE BUILDING 2022-07-03 2022-07-03 Telephone [facility] 1.2.804.854 [id number] Univers 00:00:00 00:00:00 [facility] BUDDY 350.1.13.10 i ty of [place].2.7.[place] [facility] [phone] Co dicelvis NAL 059 [facility] 2022-06-20 2022-07-01 Inpatient ERASMO Catalan REHA [id number] [facility] 17:57:00 08:24:[address] [facility] 2022-06-23 2022-06-23 Outpatient Loc LOPEZ [facility] [id number] Univers 10:30:00 10:30:00 KHADIJAH [facility] 2022-06-22 2022-06-22 Outpatient TORO Wills LABO [id number] [facility] 13:54:00 13:54:00 Alex 37 [facility] 2022-06-15 2022-06-20 Outpatient Loc MADRID [facility] [id number] Univers 11:55:00 17:05:00 SEAN [facility] 2022-06-15 2022-06-20 [facility] Luz [facility] 1.2.840.114 [id number] Univers 11:55:00 17:05:00 Encounter Teqwimuah, Sean HEALTH 350.1.13.10 ity of [place] [phone] [facility] [address] ([facility]) 2022-06-15 2022-06-15 Surgery Vinayak [facility] 1.2.840.114 [id number] Univers 14:00:00 15:30:00 Prosper HEALTH 350.1.13.10 it y of [place] [id number] [facility] [address] ([facility]) 2022-06-15 2022-06-15 Orders Doctor RINA 1.2.840.114 [id number] Univers 00:00:00 00:00:00 Only Unassigned, JUSTYNA 350.1.13.10 ity of [place] [facility] 4.2.7.2.686 Sal as [id number] [facility] [address] 2022-06-07 2022-06-07 Medical Records Tech Lab, Ang - Abdullahi [facility] 1.2.840.1 14 [id number] Univers 15:00:00 15:15:00 Visit Khadijah Lopez [facility] 350.1.13.10 ity of [place] 4.2.7.2.686 Sal as SHERRIE?BLEA [id number] [facility] [address] [place] MEDICAL OFFICE BUILDING 2022-06-07 2022-06-07 Outpatient [facility] [id number] Univers 14:30:00 14:34:09 KHADIJAH [facility] 2022-06-07 2022-06-07 Office [facility] 1.2.902.309 [id number] Univers 14:30:00 14:34:09 Visit Khadijah [facility] 350.1.13.10 it y of [place] 4.2.7.2.686 Sal as SHERRIE?BLEA [id number] [facility] [address] [place] MEDICAL OFFICE BUILDING 2022-06-05 2022-06-05 Telephone [facility] 1.2.840.114 [id number] Univers 00:00:00 00:00:00 Khadijah [employer] 350.1.13.10 it y of [place] 4.2.7.2.686 Sal as SHERRIE?BLEA [id number] Co benedicto KAPLAN 198 [facility] OFFICE [facility] 2022-06-05 2022-06-05 Telephone [facility] 1.2.994.948 [id number] Univers 00:00:00 00:00:00 Hill NAYLOR 350.1.13.10 ity of [facility] 4.2.7.2.[place] [id number] Co dicelvis NAL 059 [facility] 2022-05-26 2022-05-26 Outpatient R [facility] [id number] Univers 13:30:00 14:36:39 YAN ity [facility] 2022-05-26 2022-05-26 Office [facility] 1.2.840.114 [id number] Univers 13:30:00 14:36:39 Visit [facility] 350.1.13.10 it y of [place] 4.2.7.2.686 Sal as SHERRIE?BLEA [id number] Co benedicto KAPLAN 044 [facility] 2022-05-23 2022-05-23 Telephone [facility] 1.2.436.529 [id number] Univers 00:00:00 00:00:00 Prosper [facility] 350.1.13.10 i ty of [place] 4.2.7.2.[place] [id number] [facility] NAL [address] [place] [address] 2022-05-19 2022-05-19 Outpatient R [facility] [id number] Univers 09:00:00 09:42:04 PROSPER ity of [facility] 2022-05-19 2022-05-19 Office [facility] 1.2.840.114 [id number] Univers 09:00:00 09:42:04 Visit Prosper [facility] 350.1.13.10 i ty of [facility] 4.2.7.2.[place] [phone] Co dicnd NAL [address] [place] [address] 2022-05-19 2022-05-19 Orders Doctor FLYNN 1.2.840.114 [id number] Univers 00:00:00 00:00:00 Only Unassigned, JUSTYNA 350.1.13.10 ity of [facility] 4.2.7.2.686 Sal as [phone] [facility] [address] 2022-05-12 2022-05-12 Outpatient R YADY [facility] [id number] Univers 15:20:00 15:20:00 HILL rees o f [facility] 2022-05-10 2022-05-10 Emergency X [facility] ERT [id number] Univers 14:10:00 17:02:00 JOHAN itayan [facility] 2022-05-10 2022-05-10 Emergency [facility] 1.2.979.902 [id number] Univers 14:10:00 17:02:00 Johan NAYLOR 350.1.13.10 i ty [place].2.7.2.[place] [id number] [facility] [address] [place] 2022-05-10 2022-05-10 Nurse RINA Nair 1.2.840.114 [id number] Univers 00:00:00 00:00:00 Triage Akbar JANSEN 350.1.13.10 ity of [facility] 4.2.7.2.686 Sal as [phone] [facility] [address] [place] 2022-05-10 2022-05-10 Telephone [facility] 1.2.682.167 [id number] Univers 00:00:00 00:00:00 Prosper NAYLOR 350.1.13.10 i ty of [place] 4.2.7.2.[place] [id number] Co dical NAL 059 [facility] 2022-05-05 2022-05-05 Outpatient R ROSS [facility] [id number] Univers 16:00:00 16:00:00 SAMIA rees [facility] 2022-05-02 2022-05-[address] [facility] 1.2.840.114 [id number] Univers 00:00:00 00:00:00 Samia NAYLOR 350.1.13.10 i ty of [place] 4.2.7.2.[place] [id number] Co dical NAL 134 [facility] 2022-05-02 2022-05-[address] [facility] [facility] 1.2.840.114 [id number] Univers 00:00:00 00:00:00 Samia NAYLOR 350.1.13.10 i ty of [facility] 4.2.7.2.[place] [id number] Co dical NAL 134 [facility] 2022-04-28 2022-04-[address] [facility] 1.2.840.114 [id number] Univers 00:00:00 00:00:00 Samia NAYLOR 350.1.13.10 i ty of [facility] 4.2.7.2.[place] [id number] Co dical NAL 134 [facility] 2022-04-27 2022-04-27 Orders Doctor RINA 1.2.840.114 [id number] Univers 00:00:00 00:00:00 Only Unassigned, JUSTYNA 350.1.13.10 ity of [place] [facility] 4.2.7.2.686 Sal as [phone] [facility] [address] 2022-04-27 2022-04-27 Refill [facility] 1.2.840.114 [id number] Univers 00:00:00 00:00:00 Chyna GIVENSPEC 350.1.13.10 ity of [facility] 4.2.7.2.[place] CENTER [id number] [facility] AND DELIA [address] [place] [facility] 2022-04-26 2022-04-26 Medical Records Tech Dionte Leone Lab Main [facility] 1.2.8 40.114 [id number] Univers 13:30:00 13:45:00 Visit Samia Hawkins BUDDY 350.1.13.10 ity of [facility] 4.2.7.2.[place] [id number] Co dical NAL 353 [facility] 2022-04-26 2022-04-26 Outpatient [facility] [id number] Univers 13:30:00 13:30:00 SAMIA rees of [facility] 2022-04-25 2022-04-[address] [facility] 1.2.840.114 [id number] Univers 00:00:00 00:00:00 Samia [place] 350.1.13.10 i ty of [place].2.7.2.686 [place] [id number] Co benedicto NAL 134 [facility] 2022-04-24 2022-04-24 Telephone [facility] 1.2.711.467 [id number] Univers 00:00:00 00:00:00 Mattie HEALTH 350.1.13.10 it y of [place].2.[place] [id number] [facility] [address] [place] OFFICE [facility] 2022-04-20 2022-04-20 Telephone [facility] 1.2.840.114 [id number] Univers 00:00:00 00:00:00 Khadijah L HEALTH 350.1.13.10 it y of [place] 4.2.7.2.686 Sal as SHERRIE?BLEA [id number] Co benedicto KAPLAN 198 [facility] OFFICE [facility] 2022-04-20 2022-04-20 Telephone [facility] 1.2.840.114 [id number] Univers 00:00:00 00:00:00 Khadijah Ahuja HEALTH 350.1.13.10 it y of [place] 4.2.7.2.686 Sal as SHERRIE?BLEA [id number] Co benedicto KAPLAN 198 [facility] OFFICE [facility] 2022-04-19 2022-04-19 Telephone [facility] 1.2.050.097 [id number] Univers 00:00:00 00:00:00 Prosper JUAN DIEGOTON 350.1.13.10 i ty of [place] 4.2.7.2.686 [place] [phone] Co benedicto HARLEY 059 [facility] 2022-04-18 2022-04-18 Outpatient R [facility] [id number] Univers 15:04:54 23:59:00 MATTIE rees [facility] 2022-04-18 2022-04-18 Outpatient R [facility] [id number] Univers 00:00:00 00:00:00 MATTIE rees [facility] 2022-04-18 2022-04-18 Cameron Paulino [facility] 1.2.840.114 [id number] Univers 00:00:00 00:00:00 Chyna NAYLOR 350.1.13.10 i ty of [place] 4.2.7.2.686 [place] SHANNAN [id number] Co benedicto HARLEY 085 [facility] 2022-04-14 2022-04-14 Outpatient [facility] [id number] Univers 16:30:00 16:30:00 SAMIA [facility] 2022-04-13 2022-04-13 Outpatient R [facility] [id number] Univers 10:30:00 10:59:24 MATTIE [facility] 2022-04-13 2022-04-13 Office [facility] 1.2.840.114 [id number] Univers 10:30:00 10:59:24 Visit [facility] 350.1.13.10 it y of [place]2.7.2.[place] RAY [id number] [facility] [address] [place] OFFICE [facility] 2022-04-13 2022-04-13 Outpatient R OrlandoKAILASHKETTERING [facility] [id number] Univers 10:30:00 10:59:24 MATTIE [facility] 2022-04-12 2022-04-12 Outpatient R [facility] [id number] Univers 15:15:00 15:18:19 KHADIJAH [facility] 2022-04-12 2022-04-12 Office [facility] 1.2.291.052 [id number] Univers 15:15:00 15:18:19 Visit [facility] 350.1.13.10 it y of [place] 4.2.7.2.686 Sal as SHERRIE?BLEA [phone] Co benedicto KAPLAN 198 [facility] 2022-04-12 2022-04-12 Outpatient R [facility] [id number] Univers 15:15:00 15:18:19 KHADIJAH [facility] 2022-04-06 2022-04-06 Office [facility] 1.2.840.114 [id number] Univers 16:00:00 16:30:00 Visit [facility] 350.1.13.10 it y of [place].2.[place] RAY [id number] [place] [address] [place] OFFICE BUILDING 2022-04-06 2022-04-06 Outpatient R [facility] [id number] Univers 16:00:00 16:00:00 [facility] ity [facility] 2022-03-31 2022-03-31 Orders Doctor RINA 1.2.840.114 [id number] Univers 00:00:00 00:00:00 Only Unassigned, JUSTYNA 350.1.13.10 ity of [place] [facility] 4.2.7.2.686 Sal as [id number] [facility] [address] 2022-03-30 2022-03-30 Outpatient R [facility] [id number] Univers 12:16:01 23:59:00 [facility] 2022-03-30 2022-03-30 Hospital Jennifer [facility] 1.2.840.114 [id number] Univers 12:16:01 23:59:00 Encounter [facility] 350.1.13.10 ity of [facility] 4.2.7.2.686 [place] [id number] [facility] [address] [place] 2022-03-30 2022-03-30 Outpatient R [facility] [id number] Univers 12:16:01 23:59:00 [facility] ity [facility] 2022-03-24 2022-03-24 Outpatient R LUZ [facility]IATITOKET[facility]ING [facility] [id number] Univers 10:20:00 23:59:00 PROSPER ity [facility] [address] [facility] 1.2.840.114 [id number] Univers 00:00:00 00:00:00 Samia NAYLOR 350.1.13.10 i ty of [place] 4.2.7.2.[place] [id number] Co dical [address] 2022-03-16 2022-03-16 Outpatient R [facility] [id number] Univers 10:15:00 10:15:00 KHADIJAH [facility] 2022-03-14 2022-03-14 Telephone Vinayak [facility] 1.2.001.540 [id number] Univers 00:00:00 00:00:00 Prosper NAYLOR 350.1.13.10 i ty of [place] 4.2.7.2.[place] [id number] Co dical NAL 059 [facility] 2022-03-13 2022-03-13 Ancillary Missy Bey [facility] 1.2.840 .114 [id number] Univers 10:15:00 11:00:00 Visit Khadijah Lopez 350.1.13.10 ity of [place] 4.2.7.2.[place] [id number] Co dical NAL 179 [facility] 2022-03-13 2022-03-13 Outpatient Loc LOPEZ [facility] [id number] Univers 10:15:00 10:15:00 [facility] 2022-03-13 2022-03-13 Orders Doctor RINA 1.2.840.114 [id number] Univers 00:00:00 00:00:00 Only Unassigned, JUSTYNA 350.1.13.10 ity of [place] [facility] 4.2.7.2.686 Sal as [id number] [address] 2022-03-13 2022-03-13 Refevelyne Paulino [facility] 1.2.840.114 [id number] Univers 00:00:00 00:00:00 Chyna NAYLOR 350.1.13.10 i ty of [place] 4.2.7.2.[place] [id number] Co dical NAL 085 [facility] 2022-03-07 2022-03-07 Outpatient Loc LOPEZ [facility] [id number] Univers 11:00:00 11:00:00 [facility] 2022-03-07 2022-03-07 Jad [facility]CR[facility] 1.2.840.114 [id number] Univers 00:00:00 00:00:00 Management Ashkan NAYLOR 350.1.13.10 ity of [place].2.[place] [phone] [facility] 179 [facility] 2022-03-02 2022-03-02 Ancillary Brett, Cheryl A [facility] 1.2. 840.114 [id number] Univers 14:30:00 15:15:00 Visit Khadijah Lopez 350.1.13.10 ity of [place] 4.2.7.2.[place] [id number] [facility] 179 [facility] 2022-03-02 2022-03-02 Outpatient R [facility] [id number] Univers 14:30:00 14:30:00 [facility] 2022-03-02 2022-03-02 Telephone KAYCE [place] 1.2.042.690 [id number] Univers 00:00:00 00:00:00 Prosper JUSTYNA 350.1.13.10 it y of [facility] 4.2.7.2.686 Sal as [id number] [address] 2022-02-28 2022-02-28 Ancillary Sandie Barboza [facility] 1.2.840. 114 [id number] Univers 14:00:00 14:45:00 Visit Khadijah Lopez 350.1.13.10 ity of [place].2.[place] [id number] [address] 2022-02-28 2022-02-28 Outpatient R JESSICA [facility] [id number] Univers 14:00:00 14:00:00 [facility] 2022-02-28 2022-02-28 Telephone Kin [facility] 1.2.035.949 [id number] Univers 00:00:00 00:00:00 Berenice A HEALTH 350.1.13.10 i ty of [place] 4.2.7.2.686 Sal as SHERRIE?BLEA [id number] [address] 2022-02-24 2022-02-24 Outpatient R ROSS [facility] [id number] Univers 15:00:00 15:00:00 SAMIA rees [facility] 2022-02-23 2022-02-23 Outpatient R KIN, [facility] [id number] Univers 08:44:23 23:59:00 BERENICE rees [facility] 2022-02-23 2022-02-23 Outpatient R KIN, [facility] [id number] Univers 08:44:23 08:44:23 BERENICE rees [facility] 2022-02-23 2022-02-23 Outpatient R KIN, [facility] [id number] Univers 08:30:00 08:30:00 BERENICE rees [facility] 2022-02-23 2022-02-23 Outpatient R KIN, [facility] [id number] Univers 07:30:00 08:09:45 BERENICE rees [facility] 2022-02-23 2022-02-23 Office [facility] 1.2.840.114 [id number] Univers 07:30:00 08:09:45 Visit Berenice A [facility] 350.1.13.10 i ty of [place] 4.2.7.2.686 Sal as SHERRIE?BLEA [phone] Co dical KNEY 044 [facility] OFFICE [facility] 2022-02-22 2022-02-22 Ancillary Bey Missy [facility] 1.2.840 .114 [id number] Univers 09:30:00 10:15:00 Visit Khadijah Lopez 350.1.13.10 ity of [facility] 4.2.7.2.[place] [id number] Co dical NAL 179 [facility] 2022-02-20 2022-02-20 Nurse Visit, Dionte Nurse [facility] 1.2.840.1 14 [id number] Univers 10:30:00 12:09:24 Visit Mariela Barrientos 350.1.13. 10 ity of [facility] 4.2.7.2.[place] [phone] Co dical NAL 059 [facility] 2022-02-20 2022-02-20 Nurse Visit, [facility] Nurse [facility] 1.2.840.1 14 [id number] Univers 10:30:00 11:00:00 Visit Mariela Barrientos 350.1.13. 10 ity of [place] 4.2.7.2.[place] [id number] Co dical NAL 059 [facility] 2022-02-20 2022-02-20 Ancillary Agapito Willinghamard Neha [facility] 1 .2.840.114 [id number] Univers 09:30:00 10:43:16 Visit LopezYannickig Seymour NAYLOR 350.1.13.10 ity of [facility] 4.2.7.2.[place] [id number] Co dical NAL 179 [facility] 2022-02-20 2022-02-20 Outpatient R FLOYD [facility] [id number] Univers 10:30:00 10:30:00 MARIELA itayan of [facility] 2022-02-19 2022-02-19 Cameron Paulino [facility] 1.2.840.114 [id number] Univers 00:00:00 00:00:00 Chyna NAYLOR 350.1.13.10 i ty of [facility] 4.2.7.2.[place] [phone] [facility] NAL 085 [facility] 2022-02-16 2022-02-16 Outpatient R YADY [facility] [id number] Univers 09:00:00 09:00:00 HILL pagan [facility] 2022-02-13 2022-02-13 Telephone [facility] 1.2.840.114 [id number] Univers 00:00:00 00:00:00 Samia NAYLOR 350.1.13.10 i ty of [facility] 4.2.7.2.[place] [phone] Co dical NAL 098 [facility] 2022-02-07 2022-02-07 Urgent Shiraz Desai [facility] 1.2.840. 114 [id number] Univers 16:00:00 16:20:00 Care [facility] 350.1.13.10 ity of [facility] 4.2.7.2.686 Sal as SHERRIE?BLEA [id number] Co dical KNEY [address] [place] MEDICAL OFFICE [facility] 2022-02-07 2022-02-07 Outpatient R JEMAL [facility] [id number] Univers 16:00:00 16:00:00 ERINN ity [facility] 2022-02-07 2022-02-07 [facility] [id number] Univers 14:30:00 15:56:42 KHADIJAH ity [facility] 2022-02-07 2022-02-07 Ancillary Kath Donovansha [facility] 1 .2.840.114 [id number] Univers 14:30:00 15:56:42 Visit Khadijah Lopez 350.1.13.10 ity of [facility] 4.2.7.2.[place] [id number] Co dical NAL 179 [facility] 2022-02-07 2022-02-07 Outpatient [facility] [id number] Univers 14:30:00 15:56:42 [facility] 2022-02-07 2022-02-07 Orders Doctor RINA 1.2.840.114 [id number] Univers 00:00:00 00:00:00 Only Unassigned, JUSTYNA 350.1.13.10 ity of [place] [facility] 4.2.7.2.686 Sal as [id number] [address] 2022-02-07 2022-02-07 Case Agapito [facility] 1.2.840.114 [id number] Univers 00:00:00 00:00:00 Management BUDDY Yuan 350.1.13.10 ity of [facility] 4.2.7.2.[place] [id number] Co dical NAL 179 [facility] 2022-01-26 2022-01-26 [facility] [id number] Univers 10:30:00 10:30:00 BERENICE rees [facility] 2022-01-25 2022-01-25 Outpatient [facility] [id number] Univers 12:30:00 12:30:00 BERENICE ity of [facility] 2022-01-23 2022-01-23 Outpatient R SUNIL [facility] [id number] Univers 09:45:00 10:23:54 BAUTISTA ity [facility] 2022-01-23 2022-01-23 Office [facility] 1.2.840.114 [id number] Univers 09:45:00 10:23:54 Visit Bautista [place] 350.1.13.10 i ty of [place] [facility] 4.2.7.2.[place] [facility] [phone] Co dical [facility] 419 [facility] 2022-01-23 2022-01-23 Outpatient R SUNIL [facility] [id number] Univers 09:45:00 10:23:54 BAUTISTA ity [facility] 2022-01-23 2022-01-23 Outpatient R SUNIL, [facility] [id number] Univers 09:45:00 09:45:00 BAUTISTA ity [facility] 2022-01-16 2022-01-16 [facility] [id number] Univers 07:56:23 23:59:00 Encounter Bautista [place] [id number] ity of [place] [facility] [id number] [facility] [place] [id number] [address] 2022-01-16 2022-01-16 Outpatient R [facility] [id number] Univers 14:30:00 14:30:00 ity of [facility] 2022-01-16 2022-01-16 Outpatient R SUNIL [facility] [id number] Univers 07:55:32 07:55:32 BAUTISTA ity of [facility] 2022-01-16 2022-01-16 [facility] [id number] Univers 07:55:32 07:55:32 Encounter Bautista [place] [id number] ity of [facility] [id number] [id number] [address] 2022-01-16 2022-01-16 Outpatient R SUNIL [facility] [id number] Univers 00:00:00 00:00:00 BAUTISTA rees [facility] 2022-01-13 2022-01-13 Outpatient R VINAYAK [facility] [id number] Univers 08:00:00 23:59:00 PROSPER ity [facility] 2022-01-13 2022-01-13 Outpatient Loc LICEA [facility] [id number] Univers 08:00:00 23:59:00 PROSPER ity [facility] 2022-01-13 2022-01-13 Outpatient Loc LICEA [facility] [id number] Univers 08:00:00 08:00:00 PROSPER itayan [facility] 2022-01-12 2022-01-12 [facility] [id number] Univers 09:15:00 09:30:00 Visit [facility] [id number] it y of [place] [facility] [id number] [place]obby [facility] [id number] [facility] [address] [place] 2022-01-12 2022-01-12 Outpatient Loc ESPITIA [facility] [id number] Univers 09:15:00 09:15:00 BAUTISTA rees [facility] 2022-01-12 2022-01-12 Outpatient Loc ESPITIA [facility] [id number] Univers 09:15:00 09:15:00 BAUTISTA rees [facility] 2022-01-09 2022-01-09 Nurse Nurse, [facility] Surgery Faculty [facility] [id number] Univers 14:30:00 14:30:00 Visit Samia Hawkins [id number] ity of [place] [id number] [place] [facility] - DARLINGTONESSIO [phone] [facility] [address] BU[facility]ING 2022-01-09 2022-01-09 Outpatient R ROSS [facility] [id number] Univers 13:00:00 14:10:40 SAMIA barlowayan [facility] 2022-01-09 2022-01-09 [facility] 1.2.840.114 [id number] Univers 13:00:00 14:10:40 Visit Samia BUDDY 350.1.13.10 i ty of [facility] 4.2.7.2.[place] [facility] [phone] Me benedicto HARLEY 098 [facility] 2022-01-09 2022-01-09 Outpatient R [facility]S [facility] [id number] Univers 13:00:00 13:00:00 SAMIA rees [facility] 2022-01-09 2022-01-09 Outpatient R [facility]S [facility] [id number] Univers 13:00:00 13:00:00 SAMIA rees [facility] 2022-01-04 2022-01-04 [facility] [id number] Univers 15:30:00 16:34:54 [facility] 2022-01-04 2022-01-04 Office [facility] 1.2.647.991 [id number] Univers 15:30:00 16:34:54 Visit [facility] 350.1.13.10 it y of [facility] 4.2.7.2.686 Sal as SHERRIE?BLEA [phone] Co benedicto KNEY 198 [facility] OFFICE [facility] 2022-01-04 2022-01-04 [facility] [id number] Univers 15:30:00 15:30:00 [facility] 2021-12-30 2021-12-30 Emergency X TOBY, K [facility] ERT [id number] Univers 09:58:00 13:32:00 ity [facility] 2021-12-30 2021-12-30 Emergency Padmaja Luis [facility] 1.2.840.114 [id number] Univers 09:58:00 13:32:00 Kalyn NAYLOR 350.1.13.10 i ty of [place].2.[place] [phone] [facility] [address] [place] 2021-12-30 2021-12-30 Outpatient R CHYNA PAULINO [facility] 10 [id number] Univers 13:00:00 13:00:00 CHYNA PAULINO i ty of [facility] 2021-12-30 2021-12-[address] [facility] 1.2.840.114 [id number] Univers 00:00:00 00:00:00 Samiachandni NAYLOR 350.1.13.10 i ty of [facility] 4.2.[place].2.[place] [phone] [address] 2021-12-30 2021-12-30 Telephone [facility] 1.2.387.448 [id number] Univers 00:00:00 00:00:00 Yan HEALTH 350.1.13.10 it y of [facility] 4.2.7.2.686 Sal as SHERRIE?BLEA [phone] [address] OFFICE [facility] 2021-12-27 2021-12-27 [facility] 1.2.455.106 [id number] Univers 00:00:00 00:00:00 Yan HEALTH 350.1.13.10 it y of [place] 4.2.7.2.686 Sal as SHERRIE?BLEA [id number] [address] OFFICE [facility] 2021-12-22 2021-12-22 Outpatient R JENNIFER [facility] [id number] Univers 08:30:00 09:56:29 [facility] 2021-12-22 2021-12-22 [facility] 1.2.840.114 [id number] Univers 08:30:00 09:56:29 Visit [facility] 350.1.13.10 it y of [place] [phone] [address] OFFICE [facility] 2021-12-22 2021-12-22 Outpatient R JENNIFER [facility] [id number] Univers 08:30:00 08:30:00 [facility] 2021-12-22 2021-12-[address] [facility] 1.2.840.114 [id number] Univers 00:00:00 00:00:00 Samia HEALTH 350.1.13.10 it y of [place] [id number] [address] 2021-12-21 2021-12-21 Telephone Jennifer [facility] 1.2.285.590 [id number] Univers 00:00:00 00:00:00 [facility] 350.1.13.10 it y of [place] [id number] [address] 2021-12-21 2021-12-21 Telephone Ross [facility] 1.2.840.114 [id number] Univers 00:00:00 00:00:00 Samia NAYLOR 350.1.13.10 i ty of [place] 4.[place].2.[place] [phone] [address] 2021-12-19 2021-12-19 [facility] [id number] Univers 11:00:00 12:43:22 [facility] 2021-12-19 2021-12-19 Office [facility] 1.2.840.114 [id number] Univers 11:00:00 12:43:22 Visit Samia NAYLOR 350.1.13.10 i ty of [place] 4.[place].2.[place] [phone] [address] 2021-12-19 2021-12-19 [facility] [id number] Univers 11:00:00 12:43:22 SAMIA rees [facility] 2021-12-14 2021-12-14 Outpatient R [facility] [id number] Univers 08:30:00 08:30:00 ity [facility] 2021-12-12 2021-12-12 Outpatient R VINAYAK [facility] [id number] Univers 08:30:00 15:58:03 PROSPER itayan [facility] 2021-12-12 2021-12-12 Nurse Visit, Dionte Nurse [facility] 1.2.840.1 [id number] Univers 08:30:00 09:00:00 Visit Sewani, Prosper [place] 350.1.13.10 ity of [place].2.[place] [phone] Co dical NAL 059 [facility] 2021-12-12 2021-12-12 Outpatient R [facility] [id number] Univers 08:30:00 08:30:00 ity of [facility] 2021-12-12 2021-12-12 Outpatient R LUZ MARIATITO [facility] [id number] Univers 08:30:00 08:30:00 PROSPER ity of [facility] 2021-12-09 2021-12-09 Office [facility] 1.2.840.114 [id number] Univers 10:00:00 10:30:48 Visit Chyna NAYLOR 350.1.13.10 i ty of [place] 4.[place].2.[place] [id number] [facility] NAL 085 [facility] 2021-12-09 2021-12-09 Outpatient R CHYNA PAULINO [facility] [id number] Univers 10:00:00 10:30:48 CHYNA PAULINO i ty of [facility] 2021-12-09 2021-12-09 Outpatient R CHYNA PAULINO [facility] 10 [id number] Univers 10:00:00 10:00:00 JERARDO PAULINON i ty of [facility] 2021-12-09 2021-12-09 Outpatient R CHYNA PAULINO [facility] 10 [id number] Univers 10:00:00 10:00:00 CHYNA PAULINO i ty of [facility] 2021-12-09 2021-12-09 Office [facility] 1.2.840.114 [id number] Univers 09:40:00 09:55:18 Visit Prosper [place] 350.1.13.10 i ty [place] 4.[place].2.[place] [id number] Co dical NAL 059 [facility] 2021-12-09 2021-12-09 [facility] [id number] Univers 09:40:00 09:55:18 PROSPER ity of [facility] 2021-12-09 2021-12-09 Office Sewani [facility] 1.2.840.114 [id number] Univers 09:40:00 09:55:18 Visit Prosper NAYLOR 350.1.13.10 i ty of [place] 4.2.7.2.[place] [phone] Co dical NAL 059 [facility] 2021-12-08 2021-12-08 Kunal [facility] 1.2.881.948 [id number] Univers 00:00:00 00:00:00 Hill NAYLOR 350.1.13.10 ity of [facility] 4.2.7.2.[place] [phone] Co dic[address] 2021-12-07 2021-12-07 Outpatient Loc LOCO [facility] [id number] Univers 14:20:00 14:20:00 CLARITZANOEMY cabrera o [facility] 2021-12-07 2021-12-07 Outpatient Loc [facility]O [facility] [id number] Univers 14:20:00 14:20:00 CLARITZANOEMY cabrera o [facility] 2021-12-06 2021-12-06 Medical Records Tech Vasu, Dionte Lab Main [facility] 1.2.8 40.114 [id number] Univers 12:15:00 12:30:00 Visit Josias Lloyd Miguel A NAYLOR 350.1.13.1 0 ity of [place] [id number] [facility] 353 [facility] 2021-12-06 2021-12-06 Outpatient Loc LLOYD [facility] [id number] Univers 12:15:00 12:15:00 JOSIASAARON rees [facility] 2021-12-06 2021-12-06 Outpatient Loc LLOYD [facility] [id number] Univers 12:15:00 12:15:00 [facility] 2021-12-06 2021-12-06 Orders Doctor FLYNN 1.2.840.114 [id number] Univers 00:00:00 00:00:00 Only Unassigned, JUSTYNA 350.1.13.10 ity of [place] [facility] 4.2.7.2.686 Sal as [phone] [address] 2021-12-05 2021-12-05 Out[facility] [id number] Univers 11:30:00 12:00:51 BAUTISTA rees [facility] 2021-12-05 2021-12-05 Office [facility] 1.2.840.114 [id number] Univers 11:30:00 12:00:51 Visit Bautista NAYLOR 350.1.13.10 i ty of [place] [facility] 4.2.7.2.[place] [phone] Co dical NAL 419 [facility] 2021-11-28 2021-11-28 Outpatient R [facility] [id number] Univers 09:00:00 10:10:29 AVRIL rees [facility] 2021-11-28 2021-11-28 Office [facility] 1.2.914.682 [id number] Univers 09:00:00 10:10:29 Visit Avril NAYLOR 350.1.13.10 i ty of [facility] 4.2.7.2.[place] [id number] Co dical NAL 188 [facility] 2021-11-25 2021-11-25 Outpatient Loc [facility] [id number] Univers 14:30:00 14:30:00 YAN rees [facility] 2021-11-25 2021-11-25 Telephone [facility] 1.2.840.114 [id number] Univers 00:00:00 00:00:00 Avril ADAMSONTATUM 350.1.13.10 i ty of [facility] 4.2.7.2.[place] [id number] Co dical NAL 204 [facility] 2021-11-24 2021-11-24 Outpatient KOREY SRIVASTAVA [id number] [place] 04:51:00 04:51:00 BILITY [id number] da [facility] 2021-11-22 2021-11-22 Orders Doctor FLYNN 1.2.840.114 [id number] Univers 00:00:00 00:00:00 Only Unassigned, JUSTYNA 350.1.13.10 [facility] 4.2.7.2.686 Sal as [id number] [address] 2021-11-21 2021-11-21 Outpatient R МАРИНА [facility] [id number] Univers 08:00:00 08:34:41 AVRIL rees [facility] 2021-11-21 2021-11-21 Office М[facility] 1.2.381.308 [id number] Univers 08:00:00 08:34:41 Visit Avril BUDDY 350.1.13.10 i ty of [facility] 4.2.7.2.[place] [phone] [address] 2021-11-15 2021-11-15 Outpatient R [facility] [id number] Univers 13:00:00 14:08:50 AVRIL rees [facility] 2021-11-15 2021-11-15 Office М[facility]инаCR[facility] 1.2.424.773 [id number] Univers 13:00:00 14:08:50 Visit Avrilbernard NAYLOR 350.1.13.10 i ty of [facility] 4.2.7.2.[place] [phone] [address] 2021-11-15 2021-11-15 Outpatient R МАРИНА [facility] [id number] Univers 13:00:00 13:00:00 AVRIL rees [facility] 2021-11-15 2021-11-15 Office J[facility]elin[facility] 1.2.840.114 [id number] Univers 11:00:00 11:41:35 Visit [facility] 350.1.13.10 it y of [place] 4.2.7.2.686 Sal as SHERRIE?BLEA [phone] Co benedicto [address] OFFICE [facility] 2021-11-15 2021-11-15 Outpatient R [facility] [id number] Univers 11:00:00 11:41:35 YAN rees [facility] 2021-11-14 2021-11-14 Outpatient R МАРИНА [facility] [id number] Univers 10:45:00 10:45:00 AVRIL ayan [facility] 2021-11-14 2021-11-14 Telephone Марина AKKRISH 1.2.840.114 [id number] Univers 00:00:00 00:00:00 Avril ADAMSONTATUM 350.1.13.10 i ty [facility] 4.2.7.2.[place] [phone] Co dic[address] 2021-11-11 2021-11-11 Outpatient R WILLIAMSTARR [facility] [id number] Univers 19:30:00 19:30:00 [facility] 2021-11-11 2021-11-11 Outpatient R HEBER [facility] [id number] Univers 19:30:00 19:30:00 [facility] 2021-11-11 2021-11-11 Orders Doctor FLYNN 1.2.840.114 [id number] Univers 00:00:00 00:00:00 Only Unassigned, JUSTYNA 350.1.13.10 ity of [place] [facility] 4.2.7.2.686 Sal as [phone] [address] 2021-11-10 2021-11-10 Outpatient R [facility] [id number] Univers 08:15:00 09:03:27 AVRIL rees [facility] 2021-11-10 2021-11-10 Office Avril Roger [facility] 1.2.840.1 [id number] Univers 08:15:00 09:03:27 Visit Rm, Adc Surg Spec Procedure [place] 3 50.1.13.10 ity of [place].2.[place] [phone] Co dical [address] 2021-11-10 2021-11-10 Outpatient R МАРИНА [facility] [id number] Univers 08:15:00 09:03:27 AVRIL barlowayan [facility] 2021-11-09 2021-11-09 Outpatient R [facility] [id number] Univers 13:00:00 13:00:00 ity of [facility] 2021-11-09 2021-11-09 Outpatient R YADY [facility] [id number] Univers 09:40:00 09:40:00 HILL ity o f [facility] 2021-11-07 2021-11-08 Outpatient [facility] YULI [id number] Univers 06:47:00 14:29:00 BAUTISTA ity of [facility] 2021-11-07 2021-11-08 [facility] 1.2.840.114 [id number] Univers 06:47:00 14:29:00 Encounter Bautista NAYLOR 350.1.13.10 ity of [place].2.[place] CAMPUS [id number] [facility] [address] 2021-11-07 2021-11-08 Outpatient R [facility] YULI [id number] Univers 06:47:00 14:29:00 BAUTISTA ity of [facility] 2021-11-07 2021-11-07 Surgery [facility] 1.2.840.114 [id number] Univers 07:30:00 09:20:00 Bautista BUDDY 350.1.13.10 i ty of [place] 4[place]2.7.2.[place] SURGICAL [id number] [facility] [address] 2021-11-07 2021-11-07 Orders Doctor RINA 1.2.840.114 [id number] Univers 00:00:00 00:00:00 Only Unassigned, JUSTYNA 350.1.13.10 ity of [place] [facility] 4.2.7.2.686 Sal as [phone] [facility] [address] 2021-11-04 2021-11-04 [facility] 1.2.840.114 [id number] Univers 12:51:51 23:59:00 Encounter Bautistareji SCHNEIDER 350.1.13.10 ity of [place]2.[place].2.[place] [id number] [facility] [address] ([facility]) 2021-11-04 2021-11-04 [facility] 1.2.840.114 [id number] Univers 12:50:55 12:50:55 Encounter Bautista HEALTH 350.1.13.10 ity of [place].2.[place] [phone] [place] [address] [address] ([facility]) 2021-11-04 2021-11-04 [facility] [id number] Univers 12:50:55 12:50:55 BAUTISTA ity [facility] 2021-11-04 2021-11-04 Out[facility] [id number] Univers 12:50:15 12:50:15 BAUTISTA ity [facility] 2021-11-04 2021-11-04 [facility] 1.2.840.114 [id number] Univers 12:50:15 12:50:15 Encounter Bautista HEALTH 350.1.13.10 ity of [place]2.[place].2.[place] [phone] [address] ([facility]) 2021-11-03 2021-11-03 Outpatient R VINAYAK [facility] [id number] Univers 08:00:00 23:59:00 PROSPER ity [facility] 2021-11-03 2021-11-03 Outpatient R VINAYAK [facility] [id number] Univers 08:00:00 23:59:00 PROSPER ity [facility] 2021-11-03 2021-11-03 Outpatient R JOCELIN [facility] [id number] Univers 08:30:00 08:30:00 YAN ity [facility] 2021-11-02 2021-11-02 Telephone KAYCE [place] 1.2.937.734 [id number] Univers 00:00:00 00:00:00 Prosper JUSTYNA 350.1.13.10 it y of HOSPITAL 4.2.7.2.686 Sal as [phone] [place] [address] 2021-11-02 2021-11-02 Orders Doctor FLYNN 1.2.840.114 [id number] Univers 00:00:00 00:00:00 Only Unassigned, JUSTYNA 350.1.13.10 ity of [place] [facility] 4.2.7.2.686 Sal as [id number] [address] 2021-11-01 2021-11-01 Telephone Paulino [facility] 1.2.937.484 [id number] Univers 00:00:00 00:00:00 Chyna JUAN DIEGOTATUM 350.1.13.10 i ty of [place] 4.2.[place].2.[place] [id number] Co dical NAL 085 [facility] 2021-10-30 2021-10-30 Patient [facility] 1.2.840.114 [id number] Univers 00:00:00 00:00:00 Secure Msg Wondiful A HEALTH 350.1.13.10 ity of [place] 4.2.7.2.686 Sal as SHERRIE?BLEA [phone] [facility] 044 [facility] OFFICE [facility] 2021-10-27 2021-10-27 Case [facility] 1.2.840.114 [id number] Univers 00:00:00 00:00:00 Management Wondiful A HEALTH 350.1.13.10 ity of [place] 4.2.7.2.686 Sal as SHERRIE?BLEA [phone] [address] OFFICE [facility] 2021-10-25 2021-10-25 Outpatient R KARTIK [facility] [id number] Univers 10:00:00 10:41:58 WONDIFUL ity o f [facility] 2021-10-25 2021-10-25 Prep For [facility] 1.2.840.114 [id number] Univers 00:00:00 00:00:00 Surgery Bautista BUDDY 350.1.13.10 i ty of [place].2.[place] [phone] Co dical NAL 188 [facility] 2021-10-21 2021-10-21 Orders Doctor FLYNN 1.2.840.114 [id number] Univers 00:00:00 00:00:00 Only Unassigned, JUSTYNA 350.1.13.10 ity of [place] [facility] 4.2.7.2.686 Sal as [phone] [address] 2021-10-20 2021-10-20 Orders Doctor RINA 1.2.840.114 [id number] Univers 00:00:00 00:00:00 Only Unassigned, JUSTYNA 350.1.13.10 ity of [place] [facility] 4.2.7.2.686 Sal as [phone] [address] 2021-10-17 2021-10-17 Outpatient Loc VERDUGO [facility] [id number] Univers 11:00:00 23:59:00 WONDIFUL ity o f [facility] 2021-10-17 2021-10-17 Orders Doctor RINA 1.2.840.114 [id number] Univers 00:00:00 00:00:00 Only Unassigned, JUSTYNA 350.1.13.10 ity of [place] [facility] 4.2.7.2.686 Sal as [phone] [address] 2021-10-17 2021-10-17 Telephone Joe AKKRISH 1.2.151.090 [id number] Univers 00:00:00 00:00:00 Chyna NAYLOR 350.1.13.10 i ty of [place].2.[place] [phone] Co dical NAL 5 [facility] 2021-10-14 2021-10-14 Outpatient Loc SLAUGHTER [facility] [id number] Univers 09:30:00 09:30:00 MAHIN [facility] 2021-10-14 2021-10-14 Outpatient Loc SLAUGHTER [facility] [id number] Univers 09:30:00 09:30:00 MAHIN [facility] 2021-10-14 2021-10-14 Outpatient Loc SLAUGHTER [facility] [id number] Univers 09:30:00 09:30:00 MAHIN [facility] 2021-10-13 2021-10-13 Outpatient Loc LICEA [facility] [id number] Univers 10:00:00 23:59:00 PROSPER [facility] 2021-10-13 2021-10-13 Office [facility] 1.2.840.114 [id number] Univers 13:30:00 14:00:00 Visit Chyna NAYLOR 350.1.13.10 i ty of [facility] 4.2.7.2.686 [place] [facility] [id number] [facility] [address] [facility] 2021-10-13 2021-10-13 Outpatient R CHYNA PAULINO [facility] [id number] Univers 13:30:00 13:30:00 CHYNA PAULINO i ty of [facility] 2021-10-13 2021-10-13 Outpatient R CHYNA PAULINO [facility] [id number] Univers 13:30:00 13:30:00 CHYNA PAULINO i ty of [facility] 2021-10-13 2021-10-13 [facility] [id number] Univers 08:45:00 11:22:40 PROSPER ity [facility] 2021-10-13 2021-10-13 Office Vinayak [facility] 1.2.840.114 [id number] Univers 08:45:00 11:22:40 Visit [facility] 350.1.13.10 it y of [place].2.[place] [id number] [facility] [address] [place] OFFICE [facility] 2021-10-13 2021-10-13 Outpatient R VINAYAK [facility] [id number] Univers 08:45:00 11:22:40 PROSPER ity [facility] 2021-10-13 2021-10-13 Outpatient R VINAYAK [facility] [id number] Univers 08:45:00 08:45:00 PROSPER ity [facility] 2021-10-06 2021-10-07 Outpatient R ALISSA [facility] [id number] Univers 15:15:00 08:00:18 MASOUD ity [facility] 2021-10-06 2021-10-07 Ancillary Jacinda Hoover [facility] 1.2.840.114 [id number] Univers 15:15:00 08:00:18 Visit Masoud [place] 350.1.13.10 it[place] of [place] [phone] [facility] [address] 2021-10-06 2021-10-07 Outpatient R ALISSA [facility] [id number] Univers 15:15:00 08:00:18 [facility] 2021-10-06 2021-10-07 Outpatient R ALISSA [facility] [id number] Univers 15:15:00 08:00:18 [facility] 2021-10-07 2021-10-07 Patient Doctor [facility] 1.2.840.114 [id number] Univers 00:00:00 00:00:00 Secure Msg Unassigned, BUDDY 350.1.13.10 ity of [place] [phone] Co dical NAL 059 [facility] 2021-10-06 2021-10-06 Office Alissa [facility] 1.2.840.114 [id number] Univers 16:00:00 16:15:00 Visit Masoud WELDON 350.1.13.10 i ty [place]2.[place] [phone] [facility] [address] 2021-10-06 2021-10-06 Outpatient R ALISSA [facility] [id number] Univers 16:00:00 16:00:00 [facility] 2021-10-06 2021-10-06 Outpatient R ALISSA [facility] [id number] Univers 16:00:00 16:00:00 [facility] 2021-10-03 2021-10-03 Outpatient R VICKIE [facility] [id number] Univers 17:40:00 17:51:22 ZAINAB rees o f [facility] 2021-09-30 2021-09-30 Telephone Joe [facility] 1.2.760.342 [id number] Univers 00:00:00 00:00:00 Shiwan BUDDY 350.1.13.10 i ty of [place] [phone] Co dical NAL 085 [facility] 2021-09-29 2021-09-29 Office Alissa [facility] 1.2.840.114 [id number] Univers 09:45:00 11:28:30 Visit Masoud STAHLTANY 350.1.13.10 i ty of [facility] 4.[place].7.2.[place] [phone] [facility] [address] 2021-09-29 2021-09-29 Outpatient R ALISSA [facility] [id number] Univers 09:45:00 11:28:30 [facility] 2021-09-29 2021-09-29 [facility] [id number] Univers 09:45:00 09:45:00 [facility] 2021-09-29 2021-09-29 Orders Doctor RINA 1.2.840.114 [id number] Univers 00:00:00 00:00:00 Only Unassigned, JUSTYNA 350.1.13.10 ity of [facility] 4.2.7.2.686 [place] [phone] [facility] [address] 2021-09-27 2021-09-27 Outpatient R KARTIK [facility] [id number] Univers 13:30:00 13:30:00 WONDIFUL ity o f [facility] 2021-09-27 2021-09-27 Outpatient R ALISSA [facility] [id number] Univers 09:00:00 09:00:00 [facility] 2021-09-26 2021-09-26 Outpatient R SUNIL [facility] [id number] Univers 09:30:00 10:48:30 BAUTISTA [facility] 2021-09-23 2021-09-23 Outpatient R CHYNA PAULINO [facility] [id number] Univers 13:00:00 13:00:00 CHYNA PAULINO i ty of [facility] 2021-09-22 2021-09-22 Telephone Kartik [facility] 1.2.840.114 [id number] Univers 00:00:00 00:00:00 Wondiful A HEALTH 350.1.13.10 ity [facility] 4.2.7.2.686 Sal as SHERRIE?BLEA [phone] [facility] [address] MED[facility] 2021-09-21 2021-09-21 Orders Doctor RINA 1.2.840.114 [id number] Univers 00:00:00 00:00:00 Only Unassigned, JUSTYNA 350.1.13.10 ity of [facility] 4.2.7.2.686 Sal as [phone] [facility] [address] [place] 2021-09-20 2021-09-20 Outpatient R ALISSA [facility] [id number] Univers 13:00:00 13:00:00 MASOUD ity of [facility] 2021-09-20 2021-09-20 Transition SAMUEL Zhang 1.2.840.114 [id number] Univers 00:00:00 00:00:00 of Care Mimiemilie SPICER 350.1.13.10 i ty [place] [phone] [facility] [address] 2021-09-16 2021-09-19 Inpatient X [facility] [id number] Univers 11:37:00 20:10:00 MOSTAFA ity of [facility] 2021-09-16 2021-09-19 Hospital Parminder Shell 1.2.840.1 [id number] Univers 11:37:00 20:10:00 Encounter Fozia JamesonY 350.1.13.1 0 ity of [facility] 4.2.7.2.686 [facility] Elidia Short [id number] [facility] [address] 2021-09-16 2021-09-19 Inpatient X [facility] [id number] Univers 11:37:00 20:10:00 MOSTAFA ity [facility] 2021-09-15 2021-09-15 Orders Doctor FLYNN 1.2.840.114 [id number] Univers 00:00:00 00:00:00 Only Unassigned, JUSTYNA 350.1.13.10 ity of [place] [facility] 4.2.7.2.686 Sal as [phone] [address] 2021-09-13 2021-09-13 Telephone Jessica [facility] 1.2.840.114 [id number] Univers 00:00:00 00:00:00 Khadijah L HEALTH 350.1.13.10 it y of [place] 4.2.7.2.686 Sal as SHERRIE?BLEA [phone] Co benedicto KAPLAN [address] MEDICAL OFFICE [facility] 2021-09-12 2021-09-12 Outpatient R KARTIK [facility] [id number] Univers 14:43:48 23:59:00 WONDIFUL ity o f [facility] 2021-09-12 2021-09-12 [facility] 1.2.739.973 [id number] Univers 14:15:00 23:59:00 Encounter Wondiful A [place] 350.1.13.10 ity of [place] [phone] [facility] [address] 2021-09-11 2021-09-11 Case [facility] 1.2.840.114 [id number] Univers 00:00:00 00:00:00 Management Wondiful A HEALTH 350.1.13.10 ity of [place] 4.2.7.2.686 Sal as SHERRIE?BLEA [phone] Co benedicto KAPLAN [address] MEDICAL OFFICE [facility] 2021-09-08 2021-09-08 Medical Records Tech Lab, Ang - Db [facility] 1.2.840.1 [id number] Univers 09:00:00 09:15:00 Visit Delroy eVrdugokayminh Smith HEALTH 350.1.13.1 0 ity of [place] 4.2.7.2.686 Sal as SHERRIE?BLEA [id number] Co benedicto KAPLAN [address] MEDICAL OFFICE [facility] 2021-09-08 2021-09-08 Office Kartik [facility] 1.2.840.114 [id number] Univers 08:30:00 09:09:57 Visit Delroydiful A HEALTH 350.1.13.10 ity of [place] 4.2.7.2.686 Sal as SHERRIE?BLEA [phone] Co benedicto KAPLAN [address] MEDICAL OFFICE [facility] 2021-09-08 2021-09-08 Outpatient R KARTIK [facility] [id number] Univers 08:30:00 09:09:57 WONDIFUL ity o f [facility] 2021-09-08 2021-09-08 Outpatient R KARTIK [facility] [id number] Univers 08:30:00 09:09:57 WONDIFUL ity o f [facility] 2021-09-08 2021-09-08 Outpatient R KARTIK [facility] [id number] Univers 09:00:00 09:00:00 WONDIFUL ity o f [facility] 2021-09-08 2021-09-08 Outpatient R KARTIK [facility] [id number] Univers 08:30:00 08:30:00 WONDIFUL ity o f [facility] 2021-09-08 2021-09-08 Outpatient Loc VERDUGO [facility] [id number] Univers 08:30:00 08:30:00 WONDIFUL ity o f [facility] 2021-09-08 2021-09-08 Outpatient Loc VERDUGO [facility] [id number] Univers 08:30:00 08:30:00 WONDIFUL ity o f [facility] 2021-09-08 2021-09-08 Outpatient Loc VERDUGO [facility] [id number] Univers 08:30:00 08:30:00 WONDIFUL ity o f [facility] 2021-09-02 2021-09-02 Office Sabrina Marino [facility] 1.2.840.114 [id number] Univers 10:15:00 10:59:04 Visit Khadijah Lopez [facility].13.10 [facility] 4.2.7.2.686 Sal as SHERRIE?BLEA [phone] Co jose[address] MEDICAL OFFICE BUILDING 2021-09-02 2021-09-02 Outpatient Loc LOPEZ [facility] [id number] Univers 10:15:00 10:59:04 KHADIJAH rees [facility] 2021-09-02 2021-09-02 Outpatient R JESSICA [facility] [id number] Univers 10:15:00 10:59:04 KHADIJAH ity [facility] 2021-09-02 2021-09-02 Outpatient R JESSICA [facility] [id number] Univers 10:15:00 10:15:00 KHADIJAH rees [facility] 2021-09-02 2021-09-02 Telephone Jessica [facility] 1.2.840.114 [id number] Univers 00:00:00 00:00:00 Khadijah L HEALTH 350.1.13.10 it y of [place] 4.2.7.2.686 Sal as SHERRIE?BLEA [phone] Co dical KNEY [address] MEDICAL OFFICE BUILDING 2021-09-01 2021-09-01 Refill [facility] 1.2.840.114 [id number] Univers 00:00:00 00:00:00 Wondiful A HEALTH 350.1.13.10 ity of [place] 4.2.7.2.686 Sal as PROFESSIO [phone] Co dical NAL [address] OFFICE BUILDING ONE 2021-08-24 2021-08-24 Outpatient R KARTIK [facility] [id number] Univers 11:30:00 11:30:00 WONDIFUL ity o f [facility] 2021-08-24 2021-08-24 Outpatient R KARTIK [facility] [id number] Univers 11:30:00 11:30:00 WONDIFUL ity o f [facility] 2021-08-24 2021-08-24 Outpatient R KARTIK [facility] [id number] Univers 11:30:00 11:30:00 WONDIFUL ity o f [facility] 2021-08-24 2021-08-24 Outpatient R JESSICA [facility] NUT [id number] Univers 00:00:00 00:00:00 KHADIJAH rees [facility] 2021-08-24 2021-08-24 [facility] NUT [id number] Univers 00:00:00 00:00:00 KHADIJAH rees [facility] 2021-08-24 2021-08-24 Orders Doctor FLYNN 1.2.840.114 [id number] Univers 00:00:00 00:00:00 Only Unassigned, JUSTYNA 350.1.13.10 ity of [facility] 4.2.7.2.686 Sal as [phone] [address] 2021-08-18 2021-08-18 Outpatient R JEMAL [facility] [id number] Univers 11:00:00 11:27:14 ERINN ity of [facility] 2021-08-18 2021-08-18 Outpatient R JEMAL [facility] [id number] Univers 11:00:00 11:27:14 ERINN ity of [facility] 2021-08-18 2021-08-18 Outpatient R JEMAL [facility] [id number] Univers 11:00:00 11:27:14 ERINN ity of [facility] 2021-08-18 2021-08-18 Outpatient R JEMAL [facility] [id number] Univers 11:00:00 11:27:14 ERINN ity of [facility] 2021-08-18 2021-08-18 Urgent Demetrius Richard [facility] 1.2.840.114 [id number] Univers 11:00:00 11:20:00 Care Jemal Erinn HEALTH 350.1.13.10 ity of [facility] 4.2.7.2.686 Sal as SHERRIE?BLEA [phone] [facility] HORNE [address] MEDICAL OFFICE BUILDING 2021-08-17 2021-08-17 Telephone [facility] 1.2.840.114 [id number] Univers 00:00:00 00:00:00 Wondiful A HEALTH 350.1.13.10 ity of [facility] 4.2.7.2.686 Sal as SHERRIE?BLEA [phone] Co dicelvis KAPLAN [address] MEDICAL OFFICE BUILDING 2021-08-16 2021-08-16 Telephone [facility] 1.2.420.223 [id number] Univers 00:00:00 00:00:00 Sabrina S HEALTH 350.1.13.10 it y of [place] 4.2.7.2.686 Sal as SHERRIE?BLEA [phone] [facility] [address] MEDICAL OFFICE BUILDING 2021-08-16 2021-08-16 Orders Doctor FLYNN 1.2.840.114 [id number] Univers 00:00:00 00:00:00 Only Unassigned, JUSTYNA 350.1.13.10 [facility] 4.2.7.2.686 Sal as [phone] [address] 2021-08-15 2021-08-15 Outpatient R YADY, [facility] [id number] Univers 09:40:00 09:40:00 [facility] 2021-08-15 2021-08-15 Outpatient R YADY, [facility] [id number] Univers 09:40:00 09:40:00 [facility] cabrera [facility] 2021-08-15 2021-08-15 Outpatient R YADY, [facility] [id number] Univers 09:40:00 09:40:00 [facility] cabrera [facility] 2021-08-15 2021-08-15 Outpatient R YADY, [facility] [id number] Univers 09:40:00 09:40:00 [facility] 2021-08-15 2021-08-15 Telephone [facility] 1.2.584.560 [id number] Univers 00:00:00 00:00:00 Sabrina S HEALTH 350.1.13.10 it y of [facility] 4.2.7.2.686 Sal as SHERRIE?BLEA [phone] [address] OFFICE [facility] 2021-08-15 2021-08-15 Telephone [facility] 1.2.840.114 [id number] Univers 00:00:00 00:00:00 Khadijah L HEALTH 350.1.13.10 it y of [facility] 4.2.7.2.686 Sal as SHERRIE?BLEA [phone] [address] MEDICAL OFFICE [facility] 2021-08-11 2021-08-11 Outpatient R YADY, [facility] [id number] Univers 10:20:00 12:58:44 [facility] 2021-08-11 2021-08-11 Outpatient R YADY, [facility] [id number] Univers 10:20:00 12:58:44 [facility] cabrera [facility] 2021-08-11 2021-08-11 Outpatient R YADY [facility] [id number] Univers 10:20:00 12:58:44 QIASAMEER ity o f [facility] 2021-08-11 2021-08-11 Office KEELY Loco 1.2.840.114 [id number] Univers 10:20:00 10:40:00 Visit Hill PEDIATRIC 350.1.13.10 [place] [phone] [facility] PRIMARY [address] CARE CLINIC 2021-08-11 2021-08-11 Outpatient R YADY [facility] [id number] Univers 10:20:00 10:20:00 CLARITZANOEMY cainy o f [facility] 2021-08-08 2021-08-08 Telephone [facility] 1.2.840.114 [id number] Univers 00:00:00 00:00:00 Khadijah Ahuja [facility] 350.1.13.10 it y of [facility] 4.2.7.2.686 Sal as SHERRIE?BLEA [phone] Co dical KNEY [address] MEDICAL OFFICE BUILDING 2021-08-05 2021-08-05 [facility] [id number] Univers 00:00:00 00:00:00 KHADIJAH rees [facility] 2021-08-04 2021-08-04 [facility] 1.2.840.114 [id number] Univers 09:16:42 23:59:00 Encounter Khadijah NAYLOR 350.1.13.10 ity of [facility] [place] [phone] [facility] [address] 2021-08-04 2021-08-04 Medical Records Tech Vasu, Dionte Lab Main [facility] 1.2.8 40.114 [id number] Univers 09:15:00 09:30:00 Visit Khadijah Lopez 350.1.13.10 ity of [facility] [place] [phone] Co benedicto HARLEY [address] BUILDING 2021-08-04 2021-08-04 [facility] [id number] Univers 09:13:58 09:15:00 KHADIJAH rees [facility] 2021-08-04 2021-08-04 [facility] 1.2.840.114 [id number] Univers 09:13:58 09:15:00 Encounter Khadijah NAYLOR 350.1.13.10 ity of [place].2.[place] [phone] [facility] [address] 2021-08-04 2021-08-04 [facility] [id number] Univers 09:13:58 09:15:00 KHADIJAH rees [facility] 2021-08-04 2021-08-04 [facility] [id number] Univers 09:13:58 09:15:[address] [facility] 2021-08-04 2021-08-04 Orders Doctor RINA 1.2.840.114 [id number] Univers 00:00:00 00:00:00 Only Unassigned, JUSTYNA 350.1.13.10 ity of [place] [facility] 4.2.7.2.686 Sal as [phone] [facility] [address] 2021-08-04 2021-08-04 Telephone [facility] 1.2.840.114 [id number] Univers 00:00:00 00:00:00 Khadijah SCHNEIDER 350.1.13.10 it y of [facility] 4.2.7.2.686 Sal as SHERRIE?BLEA [phone] Co benedicto KAPLAN [address] [place] [address] MEDICAL OFFICE BUILDING 2021-08-04 2021-08-04 Telephone [facility] 1.2.840.114 [id number] Univers 00:00:00 00:00:00 Khadijah Ahuja HEALTH 350.1.13.10 it y of [place] 4.2.7.2.686 Sal as SHERRIE?BLEA [phone] Co benedicto KAPLAN [address] [place] [address] MEDICAL OFFICE [facility] 2021-08-03 2021-08-03 [facility] [id number] Univers 14:30:00 16:16:21 KHADIJAH rees [facility] 2021-08-03 2021-08-03 Office [facility] 1.2.062.417 [id number] Univers 14:30:00 16:16:21 [facility] 350.1.13.10 it y of [place] 4.2.7.2.686 Sal as SHERRIE?BLEA [phone] Co benedicto KAPLAN [address] MEDICAL OFFICE [facility] 2021-08-03 2021-08-03 Outpatient R JESSICA [facility] [id number] Univers 14:30:00 16:16:21 [facility] 2021-08-03 2021-08-03 Outpatient R JESSICA [facility] [id number] Univers 14:30:00 16:16:21 [facility] 2021-08-03 2021-08-03 Outpatient R JESSICA [facility] [id number] Univers 14:30:00 16:16:21 [facility] 2021-08-03 2021-08-03 Outpatient R JESSICA [facility] [id number] Univers 14:30:00 16:16:21 [facility] 2021-08-02 2021-08-02 Imm/Inj Vaccine, Ang Db Cbc [facility] 1. 2.840.114 [id number] Univers 08:10:00 08:39:27 Visit Judy Crow [facility] 350.1.13.10 ity [facility] 4.2.7.2.686 Sal as SHERRIE?BLEA [phone] Co joseelvis KAPLAN [address] MEDICAL OFFICE [facility] 2021-08-02 2021-08-02 Outpatient R OLI [facility] [id number] Univers 08:10:00 08:39:27 JUDY [facility] 2021-08-02 2021-08-02 Outpatient R OLI [facility] [id number] Univers 08:10:00 08:39:27 JUDY [facility] 2021-08-02 2021-08-02 Outpatient R [facility] [id number] Univers 08:10:00 08:10:[facility] 2021-08-02 2021-08-02 Outpatient R OLI [facility] [id number] Univers 08:10:00 08:10:00 JUDY ity of [facility] 2021-08-02 2021-08-02 Telephone Orthopedic [facility] 1.2.840.114 [id number] Univers 00:00:00 00:00:00 Clinic SPECIALTY 350.1.13.10 [place] [phone] Co benedicto LINARES 198 [facility] 2021-08-02 2021-08-02 Letter Orthopedic [facility] 1.2.840.114 [id number] Univers 00:00:00 00:00:00 (Out) Clinic SPECIALTY 350.1.13.10 [place] C[place] [phone] Co benedicto LINARES 198 [facility] 2021-08-02 2021-08-02 Telephone Jennifer, [facility] 1.2.082.198 [id number] Univers 00:00:00 00:00:00 Jessa HEALTH 350.1.13.10 it y of [place] [phone] [facility] [address] OFFICE BUILDING 2021-07-31 2021-07-31 Cameron [facility] 1.2.840.114 [id number] Univers 00:00:00 00:00:00 Shiirenen BUDDY 350.1.13.10 i ty of [place] [id number] Co benedicto HARLEY 085 [facility] 2021-07-28 2021-07-28 Hospital [facility] 1.2.724.784 [id number] Univers 13:45:00 23:59:00 Encounter Wondiful A HEALTH 350.1.13.10 ity of [place] 4.2.7.2.686 Sal as SHERRIE?BLEA [phone] Co benedicto KAPLAN 809 [facility] OFFICE [facility] 2021-07-28 2021-07-28 [facility] [id number] Univers 13:00:00 13:46:13 WONDIFUL ity o f [facility] 2021-07-28 2021-07-28 Office [facility] 1.2.840.114 [id number] Univers 13:00:00 13:46:13 Visit Wondiful A HEALTH 350.1.13.10 ity of [place] 4.2.7.2.686 Sal as SHERRIE?BLEA [phone] [facility] ROSAURA 044 [facility] OFFICE [facility] 2021-07-28 2021-07-28 Outpatient [facility] [id number] Univers 13:00:00 13:46:13 WONDIFUL ity o f [facility] 2021-07-28 2021-07-28 Outpatient R KARTIK, [facility] [id number] Univers 13:00:00 13:46:13 WONDIFUL ity o f [facility] 2021-07-28 2021-07-28 [facility] [id number] Univers 13:00:00 13:46:13 WONDIFUL ity o f [facility] 2021-07-28 2021-07-28 [facility] 1.2.922.966 [id number] Univers 13:35:00 13:44:00 Encounter Wondiful A HEALTH 350.1.13.10 ity of [place] 4.2.7.2.686 Sal as SHERRIE?BLEA [phone] [facility] COLEEN 809 [facility] OFFICE [facility] 2021-07-24 2021-07-24 Refill [facility] 1.2.840.114 [id number] Univers 00:00:00 00:00:00 Wondiful A [place] 350.1.13.10 ity of [facility] 4.2.[place].2.[place] [phone] [facility] 044 [facility] 2021-07-22 2021-07-22 Telephone [facility] 1.2.840.114 [id number] Univers 00:00:00 00:00:00 Wondiful A HEALTH 350.1.13.10 ity of [place] 4.2.7.2.686 Sal as SHERRIE?BLEA [phone] [facility] ROSAURA [address] MEDICAL OFFICE [facility] 2021-07-21 2021-07-21 Outpatient Loc VERDUGO [facility] [id number] Univers 14:00:00 14:00:00 WONDIFUL ity o f [facility] 2021-07-21 2021-07-21 Outpatient Loc VERDUGO [facility] [id number] Univers 14:00:00 14:00:00 WONDIFUL ity o f [facility] 2021-07-21 2021-07-21 Outpatient Loc VERDUGO [facility] [id number] Univers 14:00:00 14:00:00 WONDIFUL ity o f [facility] 2021-07-18 2021-07-18 Telephone [facility] 1.2.840.114 [id number] Univers 00:00:00 00:00:00 [facility] 350.1.13.10 it y of [place] 4.2.7.2.686 Sal as SHERRIE?BLEA [phone] Co benedicto [address] MEDICAL OFFICE BUILDING 2021-07-14 2021-07-14 Office [facility] 1.2.840.114 [id number] Univers 13:03:24 13:33:24 Visit [facility] 350.1.13.10 it y of [place]2.[place].2.686 [place]uel a RAY [phone] [place] [address] [place] OFFICE BUILDING 2021-07-14 2021-07-14 Outpatient Loc ABREU [facility] [id number] Univers 13:00:00 13:00:00 JESSA [facility] 2021-07-13 2021-07-13 Outpatient Loc FONSECA [facility] [id number] Univers 12:15:00 12:15:00 [facility] 2021-07-13 2021-07-13 Outpatient Loc FONSECA [facility] [id number] Univers 12:15:00 12:15:00 [facility] 2021-07-13 2021-07-13 Outpatient Loc FONSECA [facility] [id number] Univers 12:15:00 12:15:00 [facility] 2021-07-132021-07-13 Medical Records Tech Dionte Leone Lab Main [facility] 1.2.8 40.114 [id number] Univers 09:40:15 09:55:15 Visit Analy Fonseca 350.1.13 .10 ity of [place] [phone] Co dical NAL [address] BUILDING 2021-07-12 2021-07-12 Kunal [facility] 1.2.895.855 [id number] Univers 00:00:00 00:00:00 Jessa [employer] 350.1.13.10 it y of [place] RAY [id number] [facility] [address] OFFICE BUILDING 2021-07-07 2021-07-07 Refevelyne [facility] 1.2.840.114 [id number] Univers 00:00:00 00:00:00 Wondiful A HEALTH 350.1.13.10 ity of [facility] 4.2.7.2.686 Sal as PROFESSIO [phone] Co dical NAL 044 [facility] ONE 2021-07-06 2021-07-06 Outpatient R YADY, [facility] [id number] Univers 09:00:00 09:00:00 CLARITZANOEMY cainy o [facility] 2021-07-06 2021-07-06 Outpatient R YADY, [facility] [id number] Univers 09:00:00 09:00:00 HILL barlowy o [facility] 2021-07-06 2021-07-06 Outpatient R YADY, [facility] [id number] Univers 09:00:00 09:00:00 HILL ity o [facility] 2021-07-06 2021-07-06 Outpatient R YADY, [facility] [id number] Univers 09:00:00 09:00:00 CLARITZANOEMY cainy o [facility] 2021-07-06 2021-07-06 Outpatient R YADY, [facility] [id number] Univers 09:00:00 09:00:00 HILL barlowy o [facility] 2021-07-06 2021-07-06 Orders Doctor RINA 1.2.840.114 [id number] Univers 00:00:00 00:00:00 Only Unassigned, JUSTYNA 350.1.13.10 ity of [place] [facility] 4.2.7.2.686 Sal as [phone] [address] 2021-07-04 2021-07-04 Telephone Jennifer [facility] 1.2.627.040 [id number] Univers 00:00:00 00:00:00 [facility] 350.1.13.10 it [place] of [place] RAY [phone] [address] OFFICE BUILDING 2021-06-23 2021-06-23 Outpatient R [facility] [id number] Univers 10:30:00 11:55:55 RICSHONDA ity [facility] 2021-06-23 2021-06-23 Outpatient R [facility] [id number] Univers 10:30:00 11:55:55 RICSHONDA ity [facility] 2021-06-23 2021-06-23 Outpatient R [facility] [id number] Univers 10:30:00 11:55:55 RICSHONDA ity [facility] 2021-06-23 2021-06-23 Outpatient R [facility] [id number] Univers 10:30:00 11:55:55 RICSHONDA ity [facility] 2021-06-23 2021-06-23 Outpatient R [facility] [id number] Univers 10:30:00 11:55:55 RICSHONDA ity [facility] 2021-06-23 2021-06-23 Office [facility] 1.2.840.114 [id number] Univers 10:17:47 11:55:55 Visit Analy HEALTH 350.1.13.10 [place] of [place] RAY [id number] [address] OFFICE BUILDING 2021-06-23 2021-06-23 Outpatient R [facility] [id number] Univers 10:30:00 10:30:00 RICSHONDA ity of [facility] 2021-06-14 2021-06-14 Telephone [facility] 1.2.196.339 [id number] Univers 00:00:00 00:00:00 Jessa HEALTH 350.1.13.10 it y of [place]2.7.2.686 [place] RAY [phone] [place] [address] OFFICE BUILDING 2021-06-11 2021-06-11 Nurse RINA Villareal 1.2.871.384 [id number] Univers 00:00:00 00:00:00 Triage Fazal JUSTYNA 350.1.13.10 it y of [facility] 4.2.7.2.686 Sal as [phone] [address] 2021-06-11 2021-06-11 Refill [facility] [id number] Univers 00:00:00 00:00:00 Zainab J HEALTH 350.1.13.10 ity of [place] 4.2.7.2.686 Sal as PROFESSIO [phone] [facility] [address] OFF[facility] BUILD[facility] ONE 2021-06-11 2021-06-11 Nurse RINA Villareal [id number] Univers 00:00:00 00:00:00 Triage Fazal JUSTYNA 350.1.13.10 it y of [facility]OSPITAL 4.2.7.2.686 Sal as [id number] [address] 2021-06-08 2021-06-10 [facility] [id number] Univers 11:41:00 18:36:00 JESSA ity of [facility] 2021-06-08 2021-06-[address] [facility] [id number] Univers 11:41:00 18:36:00 Encounter Jessa HEALTH 350.1.13.10 ity [place].2.[place] [facility] [phone] [address] ([facility]) 2021-06-08 2021-06-10 Outpatient R [facility] [id number] Univers 11:41:00 18:36:00 JESSA ity [facility] 2021-06-08 2021-06-10 Outpatient R JENN[facility]ER [facility] [id number] Univers 11:41:00 18:36:00 JESSA ity [facility] 2021-06-08 2021-06-10 Outpatient R [facility] [id number] Univers 11:41:00 18:36:00 JESSA ity [facility] 2021-06-08 2021-06-08 Surgery [facility] [id number] Univers 12:45:00 17:00:00 Jessa SPECIALTY 350.1.13.10 ity of [facility] 4.2.7.2.686 [facility] AT [phone] Co [address] 2021-06-08 2021-06-08 Outpatient R JENNIFER [facility] [id number] Univers 12:45:00 12:45:00 [facility] 2021-[facility]-06 2021-06-06 [facility]phone [facility] 1.2.758.450 [id number] Univers 00:00:00 00:00:00 Jessa HEALTH 350.1.13.10 it y of [place] 4.2.7.2.686 [facility] [phone] [facility] [address] OFFICE BUILDING 2021-06-03 2021-06-03 Laboratory Only, Adc Test [facility] 1.2.840. 114 [id number] Univers 14:38:51 14:53:51 Only JenniferJessa dyer [place] 350.1.13.10 ity of [place] 4.2.7.2.686 [facility] [place] [phone] [facility] [address] 2021-06-03 2021-06-03 Outpatient R JENNIFER, [facility] [id number] Univers 14:15:00 14:15:00 JESSA ity [facility] 2021-05-24 2021-05-24 Cameron Verdugo [facility] 1.2.840.114 [id number] Univers 00:00:00 00:00:00 Wondiful A Health 350.1.13.10 ity of [place] 4.2.7.2.686 Sal as Professio [phone] Co benedicto [address] Office [facility] One 2021-05-24 2021-05-24 Telephone [facility] 1.2.840.114 [id number] Univers 00:00:00 00:00:00 Wondiful A HEALTH 350.1.13.10 ity of [place] 4.2.7.2.686 Sal as SHERRIE?BLEA [phone] Co benedicto [address] MEDICAL OFFICE BUILDING 2021-05-23 2021-05-23 [facility] 1.2.840.114 [id number] Univers 00:00:00 00:00:00 Wondiful A Health 350.1.13.10 ity of [place] 4.2.7.2.686 Sal as Sherrie?Blea [phone] [address] Office [facility] 2021-05-20 2021-05-20 Outpatient R YADY [facility] [id number] Univers 13:40:00 13:40:00 HILL rees o f [facility] 2021-05-18 2021-05-18 Telephone [facility] 1.2.942.385 [id number] Univers 00:00:00 00:00:00 Jerardon [place] 350.1.13.10 i ty of [place].2.7.2.686 [place] [phone] Co benedicto [facility] 085 [facility] 2021-05-17 2021-05-17 Medical Records Tech Lab, [facility] 1.2.840.114 [id number] Univers 11:08:09 11:23:09 Visit Jennifer Jessa [facility] 350.1.13.10 ity of [place].686 [place] [phone] [address] ([facility]) 2021-05-17 2021-05-17 [facility] [id number] Univers 10:30:00 10:30:00 [facility] 2021-05-17 2021-05-17 [facility] [id number] Univers 10:30:00 10:30:00 JESSA [facility] 2021-05-17 2021-05-17 [facility] [id number] Univers 10:30:00 10:30:00 JSESA [facility] 2021-05-17 2021-05-17 [facility] [id number] Univers 10:30:00 10:30:00 [facility] 2021-05-17 2021-05-17 Orders Doctor RINA 1.2.840.114 [id number] Univers 00:00:00 00:00:00 Only Unassigned, JUSTYNA 350.1.13.10 ity of [place] [facility] 4.2.7.2.686 Sal as [phone] [address] 2021-05-16 2021-05-16 [facility] 1.2.981.057 [id number] Univers 00:00:00 00:00:00 Chyna Naylor 350.1.13.10 i ty of [place] 4.2.7.2.686 [place] Profess[place] [phone] Co dical nal 085 Branch [facility] 2021-05-16 2021-05-16 Cameron [facility] 1.2.480.451 [id number] Univers 00:00:00 00:00:00 Mario Naylor 350.1.13.10 i ty of [place] 4.2.7.2.686 [place] Profess[place] [phone] Co dical nal [address] Building 2021-05-09 2021-05-09 [facility] 1.2.962.001 [id number] Univers 00:00:00 00:00:00 [facility] Health 350.1.13.10 it y of [place].2.7.2.686 [place] [phone] [facility] [address] Office Building 2021-05-03 2021-05-03 [facility] 1.2.840.114 [id number] Univers 00:00:00 00:00:00 Management Analy N Health 350.1.13.10 ity of [place]2.7.2.686 [place] [phone] [address] Office Building 2021-05-03 2021-05-03 [facility] 1.2.840.114 [id number] Univers 00:00:00 00:00:00 Management Analy [facility] 350.1.13.10 ity of [place]2.7.2.686 [place] [phone] [address] Office Building 2021-05-02 2021-05-02 Office [facility] 1.2.840.114 [id number] Univers 13:37:22 16:46:13 Visit [facility] 350.1.13.10 it y of [place]2.7.2.686 [place] [phone] [address] Office Building 2021-05-02 2021-05-02 Outpatient Loc [facility] [id number] Univers 13:30:00 13:30:00 [facility] 2021-05-02 2021-05-02 Orders Doctor RINA 1.2.840.114 [id number] Univers 00:00:00 00:00:00 Only Unassigned, TORNADO 350.1.13.10 ity of [place] [facility] 4.2.7.2.686 Sal as [phone] [address] 2021-04-27 2021-04-27 Outpatient Loc LOPEZ [facility] [id number] Univers 13:00:00 13:00:00 [facility] 2021-04-27 2021-04-27 Outpatient Loc LOPEZ [facility] [id number] Univers 13:00:00 13:00:00 [facility] 2021-04-27 2021-04-27 Outpatient Loc LOPEZ [facility] [id number] Univers 13:00:00 13:00:00 [facility] 2021-04-26 2021-04-26 Cameron Joaquin [facility] 1.2.840.114 [id number] Univers 00:00:00 00:00:00 [facility] 350.1.13.10 it y of [place] 4.2.7.2.686 Sal as Sherrie?Blea [phone] [facility] 370 [facility] Office [facility] 2021-04-25 2021-04-25 Orders Doctor FLYNN 1.2.840.114 [id number] Univers 00:00:00 00:00:00 Only Unassigned, JUSTYNA 350.1.13.10 ity of [place] [facility] 4.2.7.2.686 Sal as [phone] [address] 2021-04-14 2021-04-14 Urgent [place], [facility] 1.2.840.114 [id number] Univers 17:44:03 18:04:03 Care Zainab Johnston [facility] 350.1.13.10 ity of [place] 4.2.7.2.686 Sal as Sherrie?Blea [phone] [address] Office [facility] 2021-04-14 2021-04-14 Outpatient R VICKIE [facility] [id number] Univers 18:00:00 18:00:00 ZAINAB rees o f [facility] 2021-04-14 2021-04-14 Outpatient R JESSICA [facility] [id number] Univers 15:20:00 15:20:00 KHADIJAH rees [facility] 2021-04-05 2021-04-05 Orders Doctor FLYNN 1.2.840.114 [id number] Univers 00:00:00 00:00:00 Only Unassigned, JUSTYNA 350.1.13.10 ity of [place] [facility] 4.2.7.2.686 Sal as [phone] [address] 2021-03-24 2021-03-24 Telephone Jessica [facility] 1.2.840.114 [id number] Univers 00:00:00 00:00:00 Khadijah Naylor 350.1.13.10 i ty of [place].2.7.2.[place] [phone] [address] 2021-03-23 2021-03-23 Outpatient R CHYNA PAULINO [facility] [id number] Univers 14:00:00 14:42:25 JERARDO PAULINON i ty of [facility] 2021-03-23 2021-03-23 Outpatient R CHYNA PAULINO [facility] 10 [id number] Univers 14:00:00 14:42:25 CHYNA PAULINO i ty of [facility] 2021-03-23 2021-03-23 Outpatient R CHYNA PAULINO [facility] 10 [id number] Univers 14:00:00 14:42:25 CHYNA PAULINO i ty of [facility] 2021-03-23 2021-03-23 Outpatient R CHYNA PAULINO [facility] 10 [id number] Univers 14:00:00 14:42:25 CHYNA PAULINO i ty of [facility] 2021-03-23 2021-03-23 Office Joe AKKRISH 1.2.840.114 [id number] Univers 14:04:45 14:34:45 Visit Chyna [place] 350.1.13.10 i ty [facility] 4.2.7.2.686 [facility] Lakel[place] bobby Professio [phone] Co dical nal [address] [place] [address] 2021-03-23 2021-03-23 Outpatient R CHYNA PAULINO [facility] 10 [id number] Univers 14:00:00 14:00:00 CHYNA PAULINO i ty of [facility] 2021-03-18 2021-03-18 Outpatient R CHYNA PAULINO [facility] 10 [id number] Univers 14:00:00 14:00:00 CHYNA PAULINO i ty of [facility] 2021-03-18 2021-03-18 Outpatient R CHYNA PAULINO [facility] 10 [id number] Univers 14:00:00 14:00:00 JERARDO PAULINON i ty of [facility] 2021-03-18 2021-03-18 Outpatient R CHYNA PAULINO [facility] [id number] Univers 14:00:00 14:00:00 CHYNA PAULINO i ty of [facility] 2021-03-18 2021-03-18 Outpatient R CHYNA PAULINO [facility] [id number] Univers 14:00:00 14:00:00 CHYNA PAULINO i ty of [facility] 2021-03-18 2021-03-18 Outpatient R CHYNA PAULINO [facility] 10 [id number] Univers 14:00:00 14:00:00 CHYNA PAULINO i ty [facility] 2021-03-17 2021-03-17 Patient Doctor RINA 1.2.840.114 [id number] Univers 00:00:00 00:00:00 Secure Msg Unassigned, JUSTYNA 350.1.13.10 ity of [facility] 4.2.7.2.686 Sal as [phone] [address] 2021-03-16 2021-03-16 Telephone [facility] 1.2.840.114 [id number] Univers 00:00:00 00:00:00 Wondiful A [place] 350.1.13.10 ity of [place].2.7.2.686 [place] [phone] Co dical nal 044 [facility] 2021-03-11 2021-03-11 Telephone [facility] 1.2.840.114 [id number] Univers 00:00:00 00:00:00 Khadijah L Health 350.1.13.10 it y of Surgical 4.2.7.2.686 Sal as Specialti [phone] Co dical es 198 [facility] 2021-03-10 2021-03-10 Telephone [facility] 1.2.840.114 [id number] Univers 00:00:00 00:00:00 Wondiful A Health 350.1.13.10 ity of [place] 4.2.7.2.686 Sal as Professio [phone] Co dical nal [address] [place] Office Building One 2021-03-08 2021-03-08 Office [facility] 1.2.840.114 [id number] Univers 14:24:19 15:08:49 Visit Wondiful A Health 350.1.13.10 ity of [place] 4.2.7.2.686 Sal as Professio [phone] Co dical nal [address] [place] Office [facility] One 2021-03-08 2021-03-08 Outpatient R KARTIK [facility] [id number] Univers 14:15:00 15:08:49 WONDIFUL ity o f [facility] 2021-03-08 2021-03-08 Outpatient R KARTIK [facility] [id number] Univers 14:15:00 15:08:49 WONDIFUL ity o f [facility] 2021-03-08 2021-03-08 Outpatient R KARTIK [facility] [id number] Univers 14:15:00 15:08:49 WONDIFUL ity o f [facility] 2021-03-08 2021-03-08 Outpatient R KARTIK [facility] [id number] Univers 14:15:00 14:15:00 WONDIFUL ity o f [facility] 2021-03-07 2021-03-07 Orders Doctor RINA 1.2.840.114 [id number] Univers 00:00:00 00:00:00 Only Unassigned, JUSTYNA 350.1.13.10 ity of [place] [facility] 4.2.7.2.686 Sal as [phone] [facility] [address] 2021-03-02 2021-03-02 [facility] 1.2.840.114 [id number] Univers 13:30:00 23:59:00 Encounter Khadijah FRANCES 350.1.13.10 [place] [phone] [facility] 043 [address] 2021-03-02 2021-03-02 [facility] [id number] Univers 00:00:00 00:00:00 KHADIJAH ity of [facility] 2021-03-01 2021-03-01 [facility] 1.2.840.114 [id number] Univers 08:48:25 23:59:00 Encounter Hill Naylor 350.1.13.10 ity of [place].2.7.2.686 [place] [phone] [facility] 805 [address] 2021-03-01 2021-03-01 [facility] 1.2.840.114 [id number] Univers 08:47:40 08:47:40 Encounter Hill Naylor 350.1.13.10 ity of [place] 4.2.7.2.686 [facility] [phone] [facility] 8[address] 2021-03-01 2021-03-01 Outpatient R [facility] [id number] Univers 08:46:56 08:46:56 HILL barlowy o f [facility] 2021-03-01 2021-03-01 Outpatient R [facility] [id number] Univers 08:46:56 08:46:56 HILL barlowy o f [facility] 2021-03-01 2021-03-01 Outpatient R [facility] [id number] Univers 08:46:56 08:46:56 HILL barlowy o [facility] 2021-03-01 2021-03-01 [facility] 1.2.840.114 [id number] Univers 08:46:04 08:46:04 Encounter Hill Naylor 350.1.13.10 ity of [place] 4.2.7.2.686 [facility] [phone] [facility] [address] [place] 2021-03-01 2021-03-01 [facility] 1.2.840.114 [id number] Univers 08:30:00 08:45:00 Encounter Hill Naylor 350.1.13.10 ity of [place] 4.2.7.2.686 [facility] [phone] [facility] [address] 2021-03-01 2021-03-01 Outpatient R [facility] [id number] Univers 08:30:00 08:30:00 HILL rees o [facility] 2021-03-01 2021-03-01 Orders Doctor RINA 1.2.840.114 [id number] Univers 00:00:00 00:00:00 Only Unassigned, JUSTYNA 350.1.13.10 ity of [place] [facility] 4.2.7.2.686 Sal [phone] [facility] 009 [address] 2021-02-25 2021-02-25 Office [facility] 1.2.840.114 [id number] Univers 10:01:52 10:16:52 Visit Sabrina [facility] 350.1.13.10 it y of Surgical 4.2.7.2.686 Sal as Specialti [phone] Co joseal es 198 [facility] 2021-02-25 2021-02-25 Outpatient R JAMILA [facility] [id number] Univers 10:00:00 10:00:00 SABRINA ity of [facility] 2021-02-25 2021-02-25 Orders Doctor RINA 1.2.840.114 [id number] Univers 00:00:00 00:00:00 Only Unassigned, JUSTYNA 350.1.13.10 ity of [place] [facility] 4.2.7.2.686 Sal as [phone] [facility] [address] [place] 2021-02-24 2021-02-24 Emergency Padmaja Luis [facility] 1.2.840.114 [id number] Univers 15:56:00 21:39:00 Kalyn [place] 350.1.13.10 i ty of [place] 4.2.7.2.686 [place] [facility] [phone] [facility] [address] [place] 2021-02-24 2021-02-24 Orders Doctor RINA 1.2.840.114 [id number] Univers 00:00:00 00:00:00 Only Unassigned, JUSTYNA 350.1.13.10 ity of [place] [facility] 4.2.7.2.686 Sal as [phone] [facility] [address] [place] 2021-02-24 2021-02-24 Telephone [facility] 1.2.840.114 [id number] Univers 00:00:00 00:00:00 Wondiful A Health 350.1.13.10 ity of [place] 4.2.7.2.686 Sal as Professio [phone] Co dical nal [address] [place] Office Building One 2021-02-23 2021-02-23 Outpatient Loc LOCO [facility] [id number] Univers 10:40:00 10:40:00 HILL ity o f [facility] 2021-02-23 2021-02-23 Outpatient Loc LOCO [facility] [id number] Univers 10:40:00 10:40:00 HILL barlowy o f [facility] 2021-02-23 2021-02-23 Outpatient R YADY, [facility] [id number] Univers 10:40:00 10:40:00 HILL barlowy o [facility] 2021-02-23 2021-02-23 Outpatient R YADY, [facility] [id number] Univers 10:40:00 10:40:00 HILL rees o [facility] 2021-02-23 2021-02-23 Outpatient R YADY, [facility] [id number] Univers 10:40:00 10:40:00 HILL rees o [facility] 2021-02-23 2021-02-23 Telephone [facility] 1.2.840.114 [id number] Univers 00:00:00 00:00:00 Wondiful A Health 350.1.13.10 ity of [place] 4.2.7.2.686 Sal as Professio [phone] Co dical nal [address] [place] Office Building One 2021-02-18 2021-02-18 Office Yady, [facility] 1.2.840.114 [id number] Univers 10:55:09 11:53:01 Visit Hill [place] 350.1.13.10 ity of [place] 4.2.7.2.686 [place] [phone] Co dical nal 059 [facility] 2021-02-18 2021-02-18 Outpatient R YADY, [facility] [id number] Univers 10:00:00 11:53:01 HILL barlowy o [facility] 2021-02-18 2021-02-18 Outpatient R YADY, [facility] [id number] Univers 10:00:00 11:53:01 HILL barlowy o [facility] 2021-02-18 2021-02-18 Outpatient R YADY, [facility] [id number] Univers 10:00:00 11:53:01 HILL barlowy o [facility] 2021-02-18 2021-02-18 Outpatient R YADY, [facility] [id number] Univers 10:00:00 11:53:01 HILL muniz [facility] 2021-02-18 2021-02-18 Outpatient R YADY [facility] [id number] Univers 10:00:00 10:00:00 HILL muniz [facility] 2021-02-16 2021-02-16 Telephone [facility] 1.2.859.693 [id number] Univers 00:00:00 00:00:00 Chyna [place] 350.1.13.10 i ty of [place] 4.2.7.2.686 [place] Hunt [phone] [facility] [address] Building 2021-02-11 2021-02-11 Outpatient R JESSICA [facility] [id number] Univers 09:00:00 09:00:00 KHADIJAH ayan [facility] 2021-02-11 2021-02-11 Outpatient R JESSICA [facility] [id number] Univers 09:00:00 09:00:[address] [facility] 2021-02-11 2021-02-11 Outpatient R JESSICA [facility] [id number] Univers 09:00:00 09:00:[address] [facility] 2021-02-11 2021-02-11 [facility] [id number] Univers 09:00:00 09:00:[address] [facility] 2021-02-10 2021-02-10 Outpatient R CHYNA PAULINO [facility] [id number] Univers 11:30:00 11:30:00 CHYNA PAULINO i ty of [facility] 2021-02-10 2021-02-10 Office [facility] 1.2.840.114 [id number] Univers 10:24:31 10:54:31 Visit [facility] 350.1.13.10 it y of [place] 4[place]2.7.2.686 [place] [phone] [facility] 0[address] Office Building 2021-02-10 2021-02-10 [facility] [id number] Univers 10:30:00 10:30:00 JESSA [facility] 2021-02-07 2021-02-07 Outpatient R KARTIK [facility] [id number] Univers 11:30:00 11:30:00 WONDIFUL ity o f [facility] 2021-02-07 2021-02-07 Telephone [facility] 1.2.875.291 [id number] Univers 00:00:00 00:00:00 Chyna Naylor 350.1.13.10 i ty of [place] 4.2.7.2.686 [place] [phone] Co dical nal 085 [facility] 2021-01-31 2021-01-31 Refevelyne [facility]CR[facility] 1.2.840.114 [id number] Univers 00:00:00 00:00:00 Sabrina S Health 350.1.13.10 it y of Surgical 4.2.7.2.686 Sal as Specialti [phone] Co dical es 198 [facility] 2021-01-25 2021-01-25 Transition Samuel Zhang 1.2.840.114 [id number] Univers 00:00:00 00:00:00 of Care Mimi Seymour Spicer 350.1.13.10 i ty of [place]2.7.2.686 [place] [phone] [address] 2021-01-25 2021-01-25 Telephone [facility] 1.2.840.114 [id number] Univers 00:00:00 00:00:00 Wondiful A Health 350.1.13.10 ity of [place] 4.2.7.2.686 Sal as Professio [phone] Co dical nal [address] [place] Office [facility] One 2021-01-25 2021-01-25 Refevelyne [facility]CR[facility] 1.2.050.843 [id number] Univers 00:00:00 00:00:00 Mario Naylor 350.1.13.10 i ty of [place] 4.2.7.2.686 [place] [phone] Co dical nal 134 [facility] 2021-01-24 2021-01-24 Outpatient Loc PATTON [facility] [id number] Univers 08:30:00 08:30:00 MARIO ity [facility] 2021-01-24 2021-01-24 Outpatient R POOJA [facility] [id number] Univers 08:30:00 08:30:00 MARIO ity [facility] 2021-01-24 2021-01-24 Outpatient R POOJA, [facility] [id number] Univers 08:30:00 08:30:00 MARIO ity [facility] 2021-01-24 2021-01-24 Outpatient R POOJA, [facility] [id number] Univers 08:30:00 08:30:00 MARIO ity [facility] 2021-01-24 2021-01-24 Outpatient R POOJA [facility] [id number] Univers 08:30:00 08:30:00 [facility] 2021-01-20 2021-01-23 [facility] Johan Gates [facility] 1.2.840.1 14 [id number] Univers 12:54:00 14:12:00 Encounter Donell Mosher [place] 350.1.13.10 ity of HemanthFahad [place] 4.2.7.2.686 [facility] [phone] [address] 2021-01-20 2021-01-20 Urgent Provider, [facility] 1.2.840.114 [id number] Univers 11:45:02 12:40:03 Care Berenice Sanderson [facility] 350.1.13.10 ity of [place] 4.2.7.2.686 [facility] as Professio [phone] [facility] [address] Office Building One 2021-01-20 2021-01-20 Outpatient R [facility] [id number] Univers 11:20:00 11:20:00 ity of [facility] 2021-01-18 2021-01-18 Outpatient R YADY [facility] [id number] Univers 15:20:00 15:20:00 HILL barlowy o f [facility] 2021-01-18 2021-01-18 Outpatient R YADY [facility] [id number] Univers 15:20:00 15:20:00 HILL ity o f [facility] 2021-01-18 2021-01-18 Outpatient R YADY, [facility] [id number] Univers 15:20:00 15:20:00 HILL ity o f [facility] 2021-01-18 2021-01-18 Outpatient R YADY, [facility] [id number] Univers 15:20:00 15:20:00 HILL ity o [facility] 2021-01-18 2021-01-18 Outpatient R YADY, [facility] [id number] Univers 15:20:00 15:20:00 [facility] 2021-01-14 2021-01-14 Urgent Zainab Johnston [facility] 1.2.840 .114 [id number] Univers 19:01:27 19:33:12 Care Ruma [facility] Health 350.1.13. 10 ity of [place] 4.2.7.2.686 Sal as Professio [phone] [address] One 2021-01-14 2021-01-14 Outpatient R [facility] [id number] Univers 19:00:00 19:00:00 ity of [facility] 2021-01-14 2021-01-14 Telephone Kartik [facility] 1.2.840.114 [id number] Univers 00:00:00 00:00:00 Wondiful A Health 350.1.13.10 ity of [place] 4.2.7.2.686 Sal as Professio [phone] [address] One 2021-01-06 2021-01-06 Orders Doctor RINA 1.2.840.114 [id number] Univers 00:00:00 00:00:00 Only Unassigned, JUSTYNA 350.1.13.10 ity of [place] [facility] 4.2.7.2.686 Sal as [phone] [address] 2021-01-06 2021-01-06 Case Kartik [facility] 1.2.840.114 [id number] Univers 00:00:00 00:00:00 Management Wondiful A Health 350.1.13.10 ity of [place] 4.2.7.2.686 Sal as Professio [phone] [address] Office [facility] One 2020-12-29 2020-12-29 Outpatient R KARTIK [facility] [id number] Univers 08:00:00 08:33:19 WONDIFUL ity o f [facility] 2020-12-29 2020-12-29 Outpatient R KARTIK [facility] [id number] Univers 08:00:00 08:33:19 WONDIFUL ity o f [facility] 2020-12-29 2020-12-29 Outpatient R KARTIK [facility] [id number] Univers 08:00:00 08:33:19 WONDIFUL ity o f [facility] 2020-12-29 2020-12-29 Outpatient R KARTIK [facility] [id number] Univers 08:00:00 08:33:19 WONDIFUL ity o [facility] 2020-12-29 2020-12-29 Medical Records Tech Lab, [facility] Pob I [facility] 1.2. 840.114 [id number] Univers 07:57:57 08:17:57 Visit Randolph [facility] [id number] [facility]y of [place] [id number] Sal as Professio [phone] [address] [facility] 2020-12-29 2020-12-29 Outpatient R KARTIK [facility] [id number] Univers 08:00:00 08:00:00 WONDIFUL ity o f [facility] 2020-12-28 2020-12-28 Office Kartik [facility] [id number] Univers 13:55:02 14:24:22 Visit [facility] [id number] [facility] of [place] [id number] Sal as Professio [phone] [address] [facility] 2020-12-28 2020-12-28 Outpatient R KARTIK, [facility] [id number] Univers 14:00:00 14:00:00 WONDIFUL ity o f [facility] 2020-12-28 2020-12-28 Telephone [facility] 1.2.840.114 [id number] Univers 00:00:00 00:00:00 Wondiful A Health 350.1.13.10 ity of [place] 4.2.7.2.686 Sal as Professio [phone] [facility] 044 [facility] One 2020-12-24 2020-12-24 [facility] [id number] Univers 13:00:00 13:00:00 WONDIFUL ity o f [facility] 2020-12-22 2020-12-22 Telephone [facility] 1.2.840.114 [id number] Univers 00:00:00 00:00:00 Wondiful A Health 350.1.13.10 ity of [place] 4.2.7.2.686 Sal as Professio [phone] [facility] 044 [facility][Note 3] 2020-12-14 2020-12-14 Outpatient R YADY [facility] [id number] Univers 14:20:00 14:20:00 QIANGJUN ity o f [facility] 2020-12-13 2020-12-13 [place] [facility] 1.2.311.654 [id number] Univers 00:00:00 00:00:00 Qiasameer Naylor 350.1.13.10 it[place] of [place] [phone] [facility] 059 [facility] 2020-12-01 2020-12-01 Cameron [facility] 1.2.758.712 [id number] Univers 00:00:00 00:00:00 Mario Naylor 350.1.13.10 i [place] of [place] [phone] [facility] 134 [facility] 2020-11-23 2020-11-23 Orders Doctor RINA 1.2.840.114 [id number] Univers 00:00:00 00:00:00 Only Unassigned, JUSTYNA 350.1.13.10 ity of [place] [facility] 4.2.7.2.686 Sal as [phone] [address] 2020-11-16 2020-11-16 Outpatient R JENNIFER [facility] [id number] Univers 13:00:00 13:00:00 JESSA ity of [facility] 2020-11-15 2020-11-15 Office Jamila [facility] 1.2.840.114 [id number] Univers 15:14:54 15:29:54 Visit [facility] 350.1.13.10 it y of Surgical 4.2.7.2.686 Sal as Specialti [phone] Co dical es 198 [facility] 2020-11-15 2020-11-15 Outpatient R JAMILA [facility] [id number] Univers 15:15:00 15:15:00 SABRINA ity [facility] 2020-11-11 2020-11-11 Outpatient R CHYNA PAULINO [facility] [id number] Univers 09:00:00 09:00:00 CHYNA PAULINO i ty of [facility] 2020-11-04 2020-11-04 Orders Doctor FLYNN 1.2.840.114 [id number] Univers 00:00:00 00:00:00 Only Unassigned, JUSTYNA 350.1.13.10 ity of [place] [facility] 4.2.7.2.686 Sal as [phone] [address] 2020-11-03 2020-11-03 Refill Joe [facility] 1.2.840.114 [id number] Univers 00:00:00 00:00:00 [facility] [place] 350.1.13.10 i ty [facility] 4.2.7.2.[place] [phone] Co dical nal 085 [facility] 2020-10-28 2020-10-28 Outpatient R CHYNA PAULINO [facility] 10 [id number] Univers 10:40:00 10:40:00 CHYNA PAULINO i ty of [facility] 2020-10-25 2020-10-25 Case Pooja [facility] 1.2.597.667 [id number] Univers 00:00:00 00:00:00 Management Mario Naylor 350.1.13.10 it[place] of [place] [phone] Co dical nal 134 [facility] 2020-10-25 2020-10-25 Telephone [facility] 1.2.563.833 [id number] Univers 00:00:00 00:00:00 Hill Naylor 350.1.13.10 ity of [place].2.7.2.[place] [phone] Co dical nal 059 [facility] 2020-10-25 2020-10-25 Telephone [facility] 1.2.937.012 [id number] Univers 00:00:00 00:00:00 Gretairenemeredith Buddy 350.1.13.10 i ty of [place] 4.2.7.2.[place] [phone] Co dical nal 085 [facility] 2020-10-21 2020-10-21 Outpatient R POOJA [facility] [id number] Univers 16:00:00 16:00:00 MARIO itayan [facility] 2020-10-21 2020-10-21 Office [facility] 1.2.680.037 [id number] Univers 14:53:33 15:42:10 Visit Mario Naylor 350.1.13.10 i ty of [place] 4.2.7.2.[place] [phone] Co dical nal 134 [facility] 2020-10-20 2020-10-20 Outpatient R POOJA [facility] [id number] Univers 11:00:00 11:00:00 MARIO ity [facility] 2020-10-20 2020-10-20 Telephone [facility] 1.2.840.114 [id number] Univers 00:00:00 00:00:00 Wondiful A Jodange 350.1.13.10 ity of [place] 4.2.7.2.686 Sal as Professio [phone] Co dical nal [address] [place] Office [facility] One 2020-10-19 2020-10-19 Outpatient R RADIOLOGY [facility] [id number] Univers 09:18:13 23:59:00 ity of [facility] 2020-10-19 2020-10-19 Hospital Radiology [facility] 1.2.840.114 [id number] Univers 09:00:00 23:59:00 Encounter Buddy 350.1.13.10 ity of [place] 4.2.7.2.686 [place] [phone] [facility] [address] [place] 2020-10-19 2020-10-19 Telephone [facility] 1.2.840.114 [id number] Univers 00:00:00 00:00:00 Mario [place] 350.1.13.10 i ty of [place] 4.2.7.2.[place] [phone] Co dical nal 134 [facility] 2020-10-18 2020-10-18 Refevelyne Ver[facility] 1.2.840.114 [id number] Univers 00:00:00 00:00:00 Wondiful A Health 350.1.13.10 ity of [place] 4.2.7.2.686 Sal as Professio [phone] Co dical nal [address] [place] Office [facility] One 2020-10-16 2020-10-16 Cameron [facility] 1.2.840.114 [id number] Univers 00:00:00 00:00:00 Wondiful A Health 350.1.13.10 ity of [place] 4.2.7.2.686 Sal as Professio [phone] Co dical nal [address] [place] Office [facility] One 2020-10-13 2020-10-13 Telephone [facility] 1.2.850.941 [id number] Univers 00:00:00 00:00:00 Shiwan [place] 350.1.13.10 i ty of [place] 4.2.7.2.[place] [phone] Co dical nal 085 [facility] 2020-10-11 2020-10-11 Refevelyne Mar[facility]CROWNPOINT [facility] 1.2.840.114 [id number] Univers 00:00:00 00:00:00 Sabrina S Health 350.1.13.10 it y of Surgical 4.2.7.2.686 Sal as Specialti [phone] Co dical es 198 [facility] 2020-10-11 2020-10-11 Refill Joe [facility] 1.2.840.114 [id number] Univers 00:00:00 00:00:00 Chyna Naylor 350.1.13.10 i ty of [place] 4.2.7.2.[place] [phone] Co dical nal 085 [facility] 2020-09-28 2020-09-28 Refill Kartik [facility] 1.2.840.114 [id number] Univers 00:00:00 00:00:00 Wondiful A HEALTH 350.1.13.10 ity of [place] 4.2.7.2.[place] [phone] Med ical PLACIDO 044 [facility] 2020-09-17 2020-09-17 Office Joe [facility] 1.2.840.114 [id number] Univers 10:41:50 11:35:17 Visit Chyna [place] 350.1.13.10 i ty of [place] 4.2.7.2.[place] [phone] Co dical nal [address] [place] [address] 2020-09-17 2020-09-17 Outpatient R CHYNA PAULINO [facility] 10 [id number] Univers 11:00:00 11:00:00 CHYNA PAULINO i ty of [facility] 2020-09-16 2020-09-16 Outpatient Loc JC [facility] [id number] Univers 08:10:00 14:24:45 BOBBY ity [facility] 2020-09-16 2020-09-16 Outpatient Loc JC [facility] [id number] Univers 08:10:00 14:24:45 BOBBY cainy [facility] 2020-09-16 2020-09-16 Outpatient Loc JC [facility] [id number] Univers 08:10:00 14:24:45 BOBBY ity [facility] 2020-09-16 2020-09-16 Outpatient Loc JC [facility] [id number] Univers 08:10:00 08:10:00 BOBBY ity of [facility] 2020-09-15 2020-09-15 Orders Doctor RINA 1.2.840.114 [id number] Univers 00:00:00 00:00:00 Only Unassigned, JUSTYNA 350.1.13.10 ity of [place] [facility] 4.2.7.2.686 Sal as [phone] [address] 2020-09-06 2020-09-06 Case [facility] 1.2.660.558 [id number] Univers 00:00:00 00:00:00 Management Mario Naylor 350.1.13.10 ity of [place].2.7.2.[place] [phone] Co dical [address] 2020-09-06 2020-09-06 Telephone [facility] 1.2.840.114 [id number] Univers 00:00:00 00:00:00 Mario Naylor 350.1.13.10 i ty of [place] 4.2.7.2.686 [place] [phone] Co dic[address] 2020-09-03 2020-09-03 Telephone [facility] 1.2.840.114 [id number] Univers 00:00:00 00:00:00 Mario Naylor 350.1.13.10 i ty of [place].2.7.2.[place] [phone] Co dical nal [address] [place] [address] 2020-09-01 2020-09-01 [facility] [id number] Univers 15:20:00 15:20:00 HILL cainy o [facility] 2020-09-01 2020-09-01 Outpatient R YADY, [facility] [id number] Univers 15:20:00 15:20:00 HILL ity o f [facility] 2020-09-01 2020-09-01 [facility] [id number] Univers 15:20:00 15:20:00 HILL barlowy o [facility] 2020-08-26 2020-08-26 Outpatient R HOSEA [facility] [id number] Univers 08:20:00 08:31:37 BOBBY cabrera [facility] 2020-08-26 2020-08-26 Outpatient R HOSEA [facility] [id number] Univers 08:20:00 08:20:00 BOBBY ayan [facility] 2020-08-24 2020-08-24 Patient Vishnu [facility] 1.2.840.114 [id number] Univers 00:00:00 00:00:00 Outreach Santiago PRIMARY 350.1.13.10 i ty of [facility] 4.2.7.2.686 [place] [phone] Me dical [address] [place] 2020-08-24 2020-08-24 Telephone Pooja [facility] 1.2.840.114 [id number] Univers 00:00:00 00:00:00 Mario [place] 350.1.13.10 i ty of [place] 4.2.7.2.[place] [phone] Me dical nal 134 [facility] 2020-08-19 2020-08-19 Outpatient R JESSICA [facility] [id number] Univers 13:15:00 14:13:37 KHADIJAH cabrera [facility] 2020-08-19 2020-08-19 Office Sabrina Marino [facility] 1.2.840.114 [id number] Univers 13:14:03 13:29:03 Visit Khadijah Lopez [facility] 350.1.13.10 ity of Surgical 4.2.7.2.686 Sal as Specialti [phone] Co dical es 198 [facility] 2020-08-19 2020-08-19 Outpatient R JESSICA [facility] [id number] Univers 13:15:00 13:15:00 KHADIJAH barlowayan [facility] 2020-08-18 2020-08-18 Outpatient R HOSEA [facility] [id number] Univers 09:40:00 09:40:00 BOBBY [facility] 2020-08-17 2020-08-17 Office Pooja [facility] 1.2.064.772 [id number] Univers 10:54:00 11:57:52 Visit Mario Naylor 350.1.13.10 i ty of [place].2.7.2.[place] [phone] Co dical nal 134 [facility] 2020-08-17 2020-08-17 [facility] 1.2.840.114 [id number] Univers 08:37:39 09:39:54 Visit Amanda [place] 350.1.13.10 ity of [place] 4.2.7.2.[place] [phone] Co dical nal 205 [facility] 2020-08-17 2020-08-17 [facility] [id number] Univers 08:30:00 08:30:00 AMANDA pagan [facility] 2020-08-16 2020-08-16 Telephone Nurse, [facility] 1.2.840.114 [id number] Univers 00:00:00 00:00:00 Women's Buddy 350.1.13.10 i ty of Health [place] 4.2.7.2.[place] [phone] [facility] nal 134 [facility] 2020-08-16 2020-08-16 Telephone [facility] 1.2.986.663 [id number] Univers 00:00:00 00:00:00 Hill Naylor 350.1.13.10 ity of [place] 4.2.7.2.[place] [phone] Co dical nal 059 [facility] 2020-08-13 2020-08-13 Outpatient R YADY [facility] [id number] Univers 10:00:00 10:00:00 HILL pagan [facility] 2020-08-12 2020-08-12 Office [facility] 1.2.840.114 [id number] Univers 10:16:26 11:25:07 Visit [facility] 350.1.13.10 it [place]2.7.2.686 [place] [phone] [facility] 098 [facility] 2020-08-12 2020-08-12 Outpatient R JENNIFER, [facility] [id number] Univers 10:30:00 10:30:00 JESSA rees [facility] 2020-08-11 2020-08-11 Refevelyne ReesebertCROWNPOINT [facility] 1.2.840.114 [id number] Univers 00:00:00 00:00:00 Wondiful A [facility] 350.1.13.10 ity of [place] 4.2.7.2.686 Sal as Professio [phone] Co dical nal 044 [facility] One 2020-08-10 2020-08-10 [facility] [id number] Univers 08:40:00 08:40:00 HILL rees o f [facility] 2020-08-10 2020-08-10 Case [facility] 1.2.719.971 [id number] Univers 00:00:00 00:00:00 Management Mario Naylor 350.1.13.10 ity of [place] 4.2.7.2.[place] [phone] Co dical nal 134 [facility] 2020-08-10 2020-08-10 Telephone [facility] 1.2.840.114 [id number] Univers 00:00:00 00:00:00 Mario Naylor 350.1.13.10 i ty of [place] 4.2.7.2.[place] [phone] Co dical nal 134 [facility] 2020-08-05 2020-08-05 Outpatient R JENNIFER [facility] [id number] Univers 14:30:00 14:30:00 JESSA rees [facility] 2020-08-05 2020-08-05 Outpatient R JENNIFER [facility] [id number] Univers 08:30:00 08:30:00 JESSA rees [facility] 2020-07-27 2020-07-27 Office [facility] 1.2.840.114 [id number] Univers 16:11:24 17:01:19 Visit Hill Naylor 350.1.13.10 ity of [place] 4.2.7.2.[place] [phone] Co dical nal 059 [facility] 2020-07-27 2020-07-27 [facility] [id number] Univers 16:40:00 16:40:00 HILL muniz f [facility] 2020-07-22 2020-07-22 Orders Doctor RINA 1.2.840.114 [id number] Univers 00:00:00 00:00:00 Only Unassigned, JUSTYNA 350.1.13.10 [facility] 4.2.7.2.686 Sal as [phone] [address] 2020-07-21 2020-07-21 Office [facility] 1.2.582.429 [id number] Univers 07:59:04 08:45:15 Visit Mario Naylor 350.1.13.10 i ty of [place] 4.2.7.2.[place] [phone] Co dical nal 134 [facility] 2020-07-21 2020-07-21 Out[facility] [id number] Univers 08:00:00 08:00:00 MARIO cabrera [facility] 2020-07-20 2020-07-20 Refevelyne Paul[facility] 1.2.840.114 [id number] Univers 00:00:00 00:00:00 Chyna Naylor 350.1.13.10 i ty of [place] 4.2.7.2.686 [place] [phone] Co dical nal 085 [facility] 2020-07-14 2020-07-14 Cameron [facility] 1.2.840.114 [id number] Univers 00:00:00 00:00:00 Wondiful A Health 350.1.13.10 ity of [place] 4.2.7.2.686 Sal as Professio [phone] Co dical nal [address] [place] Office [facility] One 2020-07-12 2020-07-12 Outpatient [facility] [id number] Univers 09:45:38 23:59:00 AMANDA pagan [facility] 2020-07-12 2020-07-12 [facility] 1.2.840.114 [id number] Univers 09:45:00 23:59:00 Encounter Amanda Y HEALTH 350.1.13.10 ity of CLINICS [place]2.7.2.[place] [phone] [facility] [address] [place] 2020-07-12 2020-07-12 Office Faculty, Vascular Surg UNIVERS 1 .2.840.114 [id number] Univers 07:59:00 09:32:08 Visit [facility] 350.1.13.10 ity of [facility] 4.2.7.2.686 [place] [phone] [facility] [address] 2020-07-12 2020-07-12 Transition LisajfSamuel 1.2.840.114 [id number] Univers 00:00:00 00:00:00 of Care Mimi Spicer 350.1.13.10 i ty of [place] 4.2.7.2.686 [place] [phone] [facility] [address] [place] 2020-07-06 2020-07-09 Inpatient U MONET [facility] [id number] Univers 17:44:00 14:19:00 ity of [facility] 2020-07-06 2020-07-09 Hospital Mon[facility] 1.2.840.114 [id number] Univers 17:44:00 14:19:00 Encounter Buddy 350.1.13.10 ity of [place] 4.2.7.2.686 [place] [phone] [facility] [address] 2020-07-07 2020-07-07 Telephone [facility] 1.2.730.894 [id number] Univers 00:00:00 00:00:00 Shiirenen Buddy 350.1.13.10 i ty of [place] 4.2.7.2.[place] [phone] Co dical [facility] 085 [facility] 2020-07-06 2020-07-06 Office [facility] 1.2.840.114 [id number] Univers 15:57:44 16:46:10 Visit Hill Naylor 350.1.13.10 ity of [place] 4.2.7.2.686 [place] [phone] Co dicelvis nal 059 [facility] 2020-07-06 2020-07-06 Office Kartik [facility] 1.2.840.114 [id number] Univers 09:31:55 10:31:52 Visit Wondiful A Health 350.1.13.10 ity of [place] 4.2.7.2.686 Sal as Professio [phone] [facility] 044 [facility][Note 3] 2020-07-02 2020-07-02 Telephone Kartik [facility] 1.2.840.114 [id number] Univers 00:00:00 00:00:00 Wondiful A Health 350.1.13.10 ity of [place] 4.2.7.2.686 Sal as Professio [phone] [address] 2020-07-02 2020-07-02 Telephone Provider, [facility] 1.2.840.114 [id number] Univers 00:00:00 00:00:00 Ang [facility] 350.1.13.10 ity of Care [place] 4.2.7.2.686 Sal as Professio [phone] [address] 2020-06-30 2020-06-30 Cameron Monreal [facility] 1.2.840.114 [id number] Univers 00:00:00 00:00:00 Yan Health 350.1.13.10 it y of [place] 4.2.7.2.686 Sal as Professio [phone] [address] 2020-06-28 2020-06-28 Emergency X DOUG AKKRISH ERT [id number] Univers 18:09:00 22:56:00 SANA ity of [facility] 2020-06-28 2020-06-28 Emergency Doug [facility] 1.2.482.312 [id number] Univers 18:09:00 22:56:00 Sana S [place] 350.1.13.10 i ty of [place] 4.2.7.2.686 [place] [phone] [facility] [address] [place] [address] 2020-06-28 2020-06-28 Urgent Provider, [facility] 1.2.840.114 [id number] Univers 15:21:29 17:25:37 Care Yan Monreal Health 350.1.13.10 ity of [place] 4.2.7.2.686 Sal as Professio [phone] [facility] [address] [place] Office [facility] 2020-06-28 2020-06-28 Medical Records Tech Vasu, Dionte Lab Main [facility] 1.2.8 40.114 [id number] Univers 16:59:11 17:14:11 Visit Yan Monreal 350.1.13.10 ity of [place] 4.2.7.2.[place] [phone] [facility] 353 [facility] 2020-06-28 2020-06-28 Outpatient R JOCELIN [facility] [id number] Univers 15:20:00 15:20:00 YAN ity of [facility] 2020-06-28 2020-06-28 Telephone Kartik [facility] 1.2.840.114 [id number] Univers 00:00:00 00:00:00 Wondiful A Health 350.1.13.10 ity of [place] 4.2.7.2.686 Sal as Professio [phone] [address] Office [facility] 2020-06-28 2020-06-28 Orders Doctor RINA 1.2.840.114 [id number] Univers 00:00:00 00:00:00 Only Unassigned, JUSTYNA 350.1.13.10 ity of [place] [facility] 4.2.7.2.686 Sal as [phone] [address] 2020-06-24 2020-06-24 Office Kartik [facility] 1.2.840.114 [id number] Univers 15:49:51 16:35:11 Visit Wondiful A Health 350.1.13.10 ity of [place] 4.2.7.2.686 Sal as Professio [phone] [address] Office [facility] 2020-06-24 2020-06-24 Outpatient R KARTIK [facility] [id number] Univers 15:45:00 15:45:00 WONDIFUL ity o f [facility] 2020-06-23 2020-06-23 Kunal Verdugo [facility] 1.2.840.114 [id number] Univers 00:00:00 00:00:00 Wondiful A Health 350.1.13.10 ity of [place] 4.2.7.2.686 Sal as Professio [phone] [address] Office [facility] 2020-06-20 2020-06-20 Urgent Provider, [facility] 1.2.840.114 [id number] Univers 12:04:35 12:40:09 Care Demetrius [facility] 350.1.13.10 ity of [place] 4.2.7.2.686 Sal as Professio [phone] [address] Office [facility] 2020-06-20 2020-06-20 Outpatient R NATANAEL [facility] [id number] Univers 12:00:00 12:00:00 RANIA ity of [facility] 2020-06-20 2020-06-20 Refill [facility] 1.2.840.114 [id number] Univers 00:00:00 00:00:00 Wondiful A Health 350.1.13.10 ity of [place] 4.2.7.2.686 Sal as Professio [phone] [address] Office [facility] 2020-06-17 2020-06-17 Urgent Provider, [facility] 1.2.840.114 [id number] Univers 08:32:13 10:42:19 Care Berenice [facility] 350.1.13.10 ity of [place] 4.2.7.2.686 Sal as Professio [phone] [address] Office [facility] 2020-06-17 2020-06-17 Medical Records Tech Lab, Adc Fam Pob I [facility] 1.2. 840.114 [id number] Univers 09:32:40 09:52:40 Visit Berenice [facility] 350.1.13.10 ity of [place] 4.2.7.2.686 Sal as Professio [phone] [address] Office Building [facility] 2020-06-17 2020-06-17 Outpatient R KIN, [facility] [id number] Univers 08:40:00 08:40:00 BERENICE ity of [facility] 2020-06-07 2020-06-07 Orders Doctor RINA 1.2.840.114 [id number] Univers 00:00:00 00:00:00 Only Unassigned, JUSTYNA 350.1.13.10 ity of [place] [facility] 4.2.7.2.686 Sal as [phone] [address] 2020-06-02 2020-06-02 Telephone [facility] 1.2.840.114 [id number] Univers 00:00:00 00:00:00 Wondiful A Health 350.1.13.10 ity of [place] 4.2.7.2.686 Sal as Professio [phone] Co dical nal [address] [place] Office [facility] One 2020-06-01 2020-06-01 Outpatient R RADIOLOGY [facility] [id number] Univers 08:12:31 23:59:00 ity of [facility] 2020-06-01 2020-06-01 [facility] Radiology [facility] 1.2.840.114 [id number] Univers 08:12:31 23:59:00 Encounter [place] 350.1.13.10 ity of [place] 4.2.7.2.686 [facility] [phone] [address] 2020-06-01 2020-06-01 [facility] Radiology [facility] 1.2.840.114 [id number] Univers 08:00:00 08:11:00 Encounter [place] 350.1.13.10 ity of [place] 4.2.7.2.686 [facility] [phone] [address] 2020-06-01 2020-06-01 Outpatient R RADIOLOGY [facility] [id number] Univers 00:00:00 00:00:00 ity of [facility] 2020-05-27 2020-05-27 Telephone [facility] 1.2.840.114 [id number] Univers 00:00:00 00:00:00 Wondiful A Health 350.1.13.10 ity of [place] 4.2.7.2.686 Sal as Professio [phone] Co dical nal 044 [place] Office [facility] 2020-05-25 2020-05-25 Orders Doctor RINA [id number] Univers 00:00:00 00:00:00 Only Unassigned, JUSTYNA [id number] ity of [place] [facility] [id number] Sal as [phone] [address] 2020-05-21 2020-05-21 Outpatient R CHYNA PAULINO [facility] [id number] Univers 13:00:00 13:00:00 CHYNA PAULINO i ty of [facility] 2020-05-21 2020-05-21 Medical Records [facility], [facility] Pob I [facility] 1.2. [id number] Univers 08:22:16 08:42:16 Visit Randolph Verdugo Jodange [id number] 0 ity of [place] [id number] Sal as Professio [phone] [facility]44 [facility][Note 3] 2020-05-21 2020-05-21 Outpatient R KARTIK [facility] [id number] Univers 08:40:00 08:40:00 WONDIFUL ity o f [facility] 2020-05-21 2020-05-21 Telephone [facility] 1.2.085.494 [id number] Univers 00:00:00 00:00:00 Chyna [place] 350.1.13.10 [place] [phone] Co dical nal 085 [facility] 2020-05-20 2020-05-20 Outpatient R CHYNA PAULINO [facility] 10 [id number] Univers 14:40:00 14:40:00 CHYNA PAULINO i ty of [facility] 2020-05-20 2020-05-20 Office [facility] 1.2.840.114 [id number] Univers 11:39:49 12:21:56 Visit Chyna [place] 350.1.13.10 i [place]2.7.2.[place] [phone] Co dical nal 085 [facility] 2020-05-20 2020-05-20 Office [facility] 1.2.840.114 [id number] [facility] 10:31:36 11:23:27 Visit Wondiful A Health 350.1.13.10 ity of [place] 4.2.7.2.686 Sal as Professio [phone] Co jose[address] Office [facility] One 2020-05-19 2020-05-19 Telephone [facility] 1.2.840.114 [id number] Univers 00:00:00 00:00:00 Wondiful A Health 350.1.13.10 ity of [place] 4.2.7.2.686 Sal as Professio [phone] [address] One 2020-05-17 2020-05-17 Refill [facility] 1.2.840.114 [id number] Univers 00:00:00 00:00:00 Wondiful A Health 350.1.13.10 ity of [place] 4.2.7.2.686 Sal as Professio [phone] [address] One 2020-05-04 2020-05-04 Telephone [facility] 1.2.840.114 [id number] Univers 00:00:00 00:00:00 Wondiful A Health 350.1.13.10 ity of [place] 4.2.7.2.686 Sal as Professio [phone] [address] Office [facility] One 2020-04-29 2020-04-29 Outpatient R KARTIK [facility] [id number] Univers 11:56:24 23:59:00 WONDIFUL ity o f [facility] 2020-04-29 2020-04-29 Hospital [facility] 1.2.465.676 [id number] Univers 11:56:24 23:59:00 Encounter Wondiful A [place] 350.1.13.10 ity of [place].2.[place] [phone] [facility] [address] [place] [address] 2020-04-29 2020-04-29 Office [facility] 1.2.840.114 [id number] Univers 10:05:47 11:20:59 Visit Wondiful A Health 350.1.13.10 ity of [place] 4.2.7.2.686 Sal as Professio [phone] [address] 2020-04-29 2020-04-29 Outpatient R KARTIK [facility] [id number] Univers 10:15:00 10:15:00 WONDIFUL ity o f [facility] 2020-04-29 2020-04-29 Orders Doctor RINA 1.2.840.114 [id number] Univers 00:00:00 00:00:00 Only Unassigned, JUSTYNA 350.1.13.10 ity of [place] [facility] 4.2.7.2.686 Sal as [phone] [address] 2020-04-29 2020-04-29 Telephone [facility] 1.2.840.114 [id number] Univers 00:00:00 00:00:00 Wondiful A Health 350.1.13.10 ity of [place] 4.2.7.2.686 Sal as Professio [phone] [address] 2020-04-21 2020-04-21 Office [facility] 1.2.792.299 [id number] Univers 10:06:23 10:47:52 Visit Mario Buddy 350.1.13.10 i ty [place].2.[place] [phone] [address] 2020-04-21 2020-04-21 [facility] [id number] Univers 10:00:00 10:00:00 MARIO ity of [facility] 2020-04-20 2020-04-20 Refill [facility] 1.2.835.293 [id number] Univers 00:00:00 00:00:00 Mario Naylor 350.1.13.10 i ty [place].2.[place] [phone] [address] 2020-04-07 2020-04-07 [facility] [id number] Univers 08:00:00 08:00:00 MARIO ity of [facility] 2020-04-05 2020-04-05 Urgent Provider, [facility] 1.2.840.114 [id number] Univers 13:27:17 14:13:08 Care Yan [facility] 350.1.13.10 ity of [place] 4.2.7.2.686 Sal as Professio [phone] [address] Office [facility] 2020-04-05 2020-04-05 Outpatient R JOCELIN [facility] [id number] Univers 13:40:00 13:40:00 YAN ity of [facility] 2020-04-05 2020-04-05 Outpatient R [facility] [id number] Univers 12:40:00 12:40:00 ity of [facility] 2020-04-05 2020-04-05 Telephone [facility] 1.2.840.114 [id number] Univers 00:00:00 00:00:00 Wondiful A Health 350.1.13.10 ity of [place] 4.2.7.2.686 Sal as Professio [phone] [address] 2020-03-04 2020-03-04 Telephone [facility] 1.2.840.114 [id number] Univers 00:00:00 00:00:00 Wondiful A [place] 350.1.13.10 ity of [place].2.[place] [phone] [address] 2020-03-02 2020-03-02 Refill [facility] 1.2.840.114 [id number] Univers 00:00:00 00:00:00 Wondiful A Health 350.1.13.10 ity of [place] 4.2.7.2.686 Sal as Professio [phone] [address] Office [facility] 2020-03-01 2020-03-01 Orders Doctor RINA 1.2.840.114 [id number] Univers 00:00:00 00:00:00 Only Unassigned, JUSTYNA 350.1.13.10 ity of [place] [facility] 4.2.7.2.686 Sal as [phone] [address] 2020-02-27 2020-02-27 Outpatient R CHYNA PAULINO [facility] 10 [id number] Univers 10:00:00 10:00:00 CHYNA PAULINO i ty of [facility] 2020-02-23 2020-02-23 Refill [facility] 1.2.840.114 [id number] Univers 00:00:00 00:00:00 Wondiful A Health 350.1.13.10 ity of [place] 4.2.7.2.686 Sal as Professio [phone] [facility] [address] [place] One 2020-02-19 2020-02-19 Orders Doctor FLYNN 1.2.840.114 [id number] Univers 00:00:00 00:00:00 Only Unassigned, JUSTYNA 350.1.13.10 ity of [place] [facility] 4.2.7.2.686 Sal as [phone] [address] 2020-02-10 2020-02-10 Orders Doctor FLYNN 1.2.840.114 [id number] Univers 00:00:00 00:00:00 Only Unassigned, JUSTYNA 350.1.13.10 ity of [place] [facility] 4.2.7.2.686 Sal as [phone] [address] 2020-02-05 2020-02-05 Office [facility] 1.2.840.114 [id number] Univers 12:45:55 13:45:31 Visit Kathrin Naylor 350.1.13.10 i ty of [place]2.7.2.[place] [phone] Co dical nal 134 [facility] 2020-02-05 2020-02-05 Outpatient R ARLENE [facility] [id number] Univers 13:00:00 13:00:00 KATHRIN ity of [facility] 2020-02-05 2020-02-05 Telephone [facility] 1.2.840.114 [id number] Univers 00:00:00 00:00:00 Wondiful A [place] 350.1.13.10 ity of [place]2.7.2.[place] [phone] [facility] 044 [facility] 2020-01-30 2020-01-30 Telephone Kartik [facility] 1.2.840.114 [id number] Univers 00:00:00 00:00:00 Wondiful A Health 350.1.13.10 ity of [place] 4.2.7.2.686 Sal as Professio [phone] [facility] [address] [place] [address] One 2020-01-26 2020-01-26 Hospital Radiology [facility] 1.2.840.114 [id number] Univers 07:37:00 23:59:00 Encounter Health 350.1.13.10 [place] of [place]2.7.2.686 [place] [phone] [address] ([facility]) 2020-01-26 2020-01-26 Outpatient R RADIOLOGY [facility] [id number] Univers 07:30:00 07:36:00 ity of [facility] 2020-01-26 2020-01-26 Hospital Radiology [facility] 1.2.840.114 [id number] Univers 07:30:00 07:36:00 Encounter Health 350.1.13.10 [place]2.[place] [phone] [address] ([facility]) 2020-01-21 2020-01-21 Orders Doctor RINA 1.2.840.114 [id number] Univers 00:00:00 00:00:00 Only Unassigned, JUSTYNA 350.1.13.10 ity of [place] [facility] 4.2.7.2.686 Sal as [phone] [place] [address] [place] 2020-01-20 2020-01-20 Telephone [facility] 1.2.840.114 [id number] Univers 00:00:00 00:00:00 Kathrin Buddy 350.1.13.10 i ty of [place].2.7.2.[place] [phone] [facility] nal 134 [facility] 2020-01-19 2020-01-19 Telephone [facility] 1.2.840.114 [id number] Univers 00:00:00 00:00:00 Wondiful A Health 350.1.13.10 ity of [place] 4.2.7.2.686 Sal as Professio [phone] Co dical nal [address] [place] [address] One 2020-01-19 2020-01-19 Telephone HUDSON Jacobs 1.2.840.114 [id number] Univers 00:00:00 00:00:00 Kathrin Naylor 350.1.13.10 i ty of [place].2.7.2.[place] [phone] Co dical nal 134 [facility] 2020-01-15 2020-01-15 Telephone RINA Agustin 1.2.312.195 [id number] Univers 00:00:00 00:00:00 Hayde KIMBLEY 350.1.13.10 i ty of HOSPITAL 4.2.7.2.686 Sal as [phone] [facility] [address] [place] 2020-01-14 2020-01-14 Patient Doctor RINA 1.2.840.114 [id number] Univers 00:00:00 00:00:00 Secure Msg Unassigned, JUSTYNA 350.1.13.10 ity of [place] [facility] 4.2.7.2.686 Sal as [phone] [facility] [address] [place] 2020-01-13 2020-01-13 Outpatient R [facility] [id number] Univers 13:40:00 13:40:00 ity of [facility] 2020-01-12 2020-01-12 Telephone Kartik AKKRISH 1.2.840.114 [id number] Univers 00:00:00 00:00:00 Wondiful A HEALTH 350.1.13.10 ity of [place].7.2.[place] [facility] [phone] [facility] 2020-01-02 2020-01-02 Orders Doctor RINA 1.2.840.114 [id number] Univers 00:00:00 00:00:00 Only Unassigned, JUSTYNA 350.1.13.10 ity of [place] [facility] 4.2.7.2.686 Sal as [phone] [facility] [address] [place] 2020-01-01 2020-01-01 Telephone Kartik [facility] 1.2.840.114 [id number] Univers 00:00:00 00:00:00 Wondiful A Health 350.1.13.10 ity of [place] 4.2.7.2.686 Sal as Professio [phone] [address] Office [facility] 2019-12-17 2019-12-17 Telephone [facility] 1.2.840.114 [id number] Univers 00:00:00 00:00:00 Wondiful A Health 350.1.13.10 ity of [place] 4.2.7.2.686 Sal as Professio [phone] [address] Office [facility] 2019-12-17 2019-12-17 Orders RINA Verdugo 1.2.840.114 [id number] Univers 00:00:00 00:00:00 Only Wondiful A JUSTYNA 350.1.13.10 ity of [facility] 4.2.7.2.686 Sal as [phone] [address] 2019-12-15 2019-12-15 [facility]medici [facility] 1.2.840.114 [id number] Univers 10:40:01 15:03:42 ne Visit Wondiful A [place] 350.1.13.10 ity of [place]2.7.2.[place] [phone] [address] 2019-12-15 2019-12-15 [facility] [id number] Univers 13:15:00 13:15:00 WONDIFUL ity o f [facility] 2019-12-15 2019-12-15 Telephone [facility] 1.2.840.114 [id number] Univers 00:00:00 00:00:00 Wondiful A Health 350.1.13.10 ity of [place] 4.2.7.2.686 Sal as Professio [phone] [address] Office [facility] 2019-12-14 2019-12-14 Nurse RINA Arevalo 1.2.840.114 [id number] Univers 00:00:00 00:00:00 Triage Viji Silva JUSTYNA 350.1.13.10 ity of HOSPITAL 4.2.7.2.686 Sal as [phone] [address] 2019-12-05 2019-12-05 Outpatient R ARLENE [facility] [id number] Univers 10:00:00 10:00:00 KATHRIN ity [facility] 2019-11-28 2019-11-28 Outpatient R CHYNA PAULINO [facility] 10 [id number] Univers 09:40:00 09:40:00 CHYNA PAULINO i ty of [facility] 2019-11-28 2019-11-28 Telemedici [facility] 1.2.840.114 [id number] Univers 08:04:39 08:24:39 ne Visit Chyna Naylor 350.1.13.10 ity [facility] 4.2.7.2.[place] [phone] Co dical nal 085 [facility] 2019-11-24 2019-11-24 [facility] 1.2.840.114 [id number] Univers 00:00:00 00:00:00 [place] HEALTH 350.1.13.10 it y of [place]2.7.2.[place] [phone] Med ical PLACIDO 044 [facility] 2019-11-24 2019-11-24 RefMaryanne [facility] 1.2.840.114 [id number] Univers 00:00:00 00:00:00 [place] HEALTH 350.1.13.10 it y of [place]2.7.2.[place] [phone] Med ical PLACIDO 044 [facility] 2019-11-24 2019-11-24 [facility] 1.2.840.114 [id number] Univers 00:00:00 00:00:00 [place]rinayan [place] 350.1.13.10 i ty [facility] 4.2.7.2.[place] [phone] Co dical nal 134 [facility] 2019-11-12 2019-11-12 Telephone [facility] 1.2.840.114 [id number] Univers 00:00:00 00:00:00 Rickavithaonda N SPECIALTY 350.1.13.10 ity of C[place]2.7.2.[place] C[place] AT [phone] Co dical VICTORY 098 [facility] 2019-11-11 2019-11-11 Outpatient R KARTIK [facility] [id number] Univers 10:00:00 10:00:00 WONDIFUL ity o f [facility] 2019-11-11 2019-11-11 Telemedici [facility] 1.2.840.114 [id number] Univers 07:30:37 08:00:37 ne Visit Wondiful A Buddy 350.1.13.10 ity of [place] 4[place]2.7.2.[place] [phone] Co dical nal 044 [facility] 2019-11-03 2019-11-03 Patient Doctor [facility] 1.2.840.114 [id number] Univers 00:00:00 00:00:00 Secure Msg Unassigned, SPECIALTY 350.1.13.10 ity of [place] CARE 4.2.7.2.[place] C[place] [phone] Co dical VICTORY 020 [facility] 2019-10-31 2019-10-31 Outpatient R ARLENE [facility] [id number] Univers 09:00:00 09:00:00 KATHRIN cainayan of [facility] 2019-10-28 2019-10-28 Telephone [facility] 1.2.840.114 [id number] Univers 00:00:00 00:00:00 Kathrin Naylor 350.1.13.10 i ty of [place] 4.2.7.2.[place] [phone] Co dical nal 134 [facility] 2019-10-22 2019-10-22 Case [facility] 1.2.840.114 [id number] Univers 00:00:00 00:00:00 Management Analy N SPECIALTY 350.1.13.10 ity of C[place]2.7.2.[place] AT [phone] Co dical VICTORY 098 [facility] 2019-10-20 2019-10-20 Telephone [facility] 1.2.527.293 [id number] Univers 00:00:00 00:00:00 Jessa SPECIALTY 350.1.13.10 ity of [place]2.7.2.[place] AT [phone] Co benedicto LINARES [address] [place] [address] 2019-10-16 2019-10-16 Office [facility] 1.2.840.114 [id number] Univers 08:51:56 12:02:48 Visit Jessa SPECIALTY 350.1.13.10 ity of C[place] 4[place]2.7.2.[place] AT [phone] Co benedicto LINDO[address] 2019-10-16 2019-10-16 Outpatient R [facility] [id number] Univers 09:00:00 09:00:00 JESSA ity [facility] 2019-10-16 2019-10-16 Orders Doctor RINA 1.2.840.114 [id number] Univers 00:00:00 00:00:00 Only Unassigned, JUSTYNA 350.1.13.10 ity of [place] [facility] 4.2.7.2.686 Sal as [phone] [address] 2019-10-03 2019-10-03 Office [facility] 1.2.840.114 [id number] Univers 12:54:17 14:22:37 Visit Kathrin Naylor 350.1.13.10 i ty [place] 4.2.7.2.[place] [phone] Co dicelvis [facility] 134 [facility] 2019-10-03 2019-10-03 Outpatient R [facility] [id number] Univers 13:30:00 13:30:00 KATHRIN ity [facility] 2019-10-02 2019-10-02 Orders Doctor RINA 1.2.840.114 [id number] Univers 00:00:00 00:00:00 Only Unassigned, JUSTYNA 350.1.13.10 ity of [place] [facility] 4.2.7.2.686 Sal as [phone] [address] 2019-10-01 2019-10-01 Case [facility] 1.2.840.114 [id number] Univers 00:00:00 00:00:00 Management Wondiful A Health 350.1.13.10 ity of [place] 4.2.7.2.686 Sal as Professio [phone] [address] Office [facility] 2019-09-29 2019-09-29 Telephone [facility] 1.2.840.114 [id number] Univers 00:00:00 00:00:00 Wondiful A Health 350.1.13.10 ity of [place] 4.2.7.2.686 Sal as Professio [phone] [address] 2019-09-26 2019-09-26 Outpatient R KARTIK [facility] [id number] Univers 10:00:00 10:48:11 WONDIFUL ity o f [facility] 2019-09-26 2019-09-26 Office [facility] 1.2.840.114 [id number] Univers 09:42:52 10:48:11 Visit Wondiful A Health 350.1.13.10 ity of [place] 4.2.7.2.686 Sal as Professio [phone] [address] 2019-09-26 2019-09-26 Telephone [place] [facility]CR[facility] 1.2.840.114 [id number] Univers 00:00:00 00:00:00 Wondiful A Health 350.1.13.10 ity of [place] 4.2.7.2.686 Sal as Professio [phone] [address] 2019-09-26 2019-09-26 Telephone [facility] 1.2.840.114 [id number] Univers 00:00:00 00:00:00 Kathrin Buddy 350.1.13.10 i ty of [place].2.7.2.[place] [phone] [facility] nal 134 [facility] 2019-09-23 2019-09-23 Telephone Jocelin [facility] 1.2.648.123 [id number] Univers 00:00:00 00:00:00 Yan Health 350.1.13.10 it y of [place] 4.2.7.2.686 Sal as Professio [phone] Co dical nal [address] [place] Office [facility] 2019-09-17 2019-09-17 Telephone [facility] 1.2.277.835 [id number] Univers 00:00:00 00:00:00 Jessa SPECIALTY 350.1.13.10 ity of CARE [place]2.7.2.[place] C[place] AT [phone] Co joseelvis LINARES 098 [facility] 2019-09-16 2019-09-16 [facility] [id number] Univers 09:28:37 23:59:00 YAN ity of [facility] 2019-09-16 2019-09-16 [facility] 1.2.840.114 [id number] Univers 09:28:00 23:59:00 Encounter Yan [place] 350.1.13.10 ity of [place]2.7.2.686 [place] [phone] [address] 2019-09-16 2019-09-16 Office [facility] 1.2.840.114 [id number] Univers 08:28:08 09:00:50 Visit [facility] 350.1.13.10 it y of [place] 4.2.7.2.686 Sal as Professio [phone] Co benedicto nal 044 [facility][Note 3] 2019-09-16 2019-09-16 Out[facility] [id number] Univers 08:20:00 09:00:50 YAN ity of [facility] 2019-09-12 2019-09-12 Outpatient [facility] [id number] Univers 08:16:28 23:59:00 JESSA ity of [facility] 2019-09-12 2019-09-[address] [facility] 1.2.840.114 [id number] Univers 08:16:00 23:59:00 Encounter Jessa SPECIALTY 350.1.13.10 ity of C[place]2.7.2.[place] AT [phone] Co joseelvis LINDOAyan 807 [facility] 2019-09-04 2019-09-04 Office [facility] 1.2.840.114 [id number] Univers 08:31:40 10:00:50 Visit Jessa SPECIALTY 350.1.13.10 ity of C[place]2.7.2.[place] AT [phone] Co joseelvis LINDOY 098 [facility] 2019-09-04 2019-09-04 Orders Doctor RINA 1.2.840.114 [id number] Univers 00:00:00 00:00:00 Only Unassigned, JUSTYNA 350.1.13.10 ity of [place] [facility] 4.2.7.2.686 Sal as [phone] [address] 2019-08-19 2019-08-19 Telephone [facility] 1.2.840.114 [id number] Univers 00:00:00 00:00:00 Wondiful A Health 350.1.13.10 ity of [place] 4.2.7.2.686 Sal as Professio [phone] Co joseelvis nal [address] [place] [address] One 2019-08-14 2019-08-14 Emergency X HERNANDEZ, [facility] ERT [id number] Univers 19:41:36 21:48:00 DEEPA ity of [facility] 2019-08-14 2019-08-14 Outpatient R MARJORIE [facility] [id number] Univers 09:30:00 09:30:00 IRAJ ity of [facility] 2019-08-12 2019-08-12 [facility] [id number] Univers 15:15:00 16:06:47 WONDIFUL ity o f [facility] 2019-04-25 2019-04-25 Orders Doctor RINA 1.2.840.114 [id number] Univers 00:00:00 00:00:00 Only Unassigned, JUSTYNA 350.1.13.10 ity of [place] [facility] 4.2.7.2.686 Sal as [phone] [address] 2019-04-24 2019-04-24 Orders Doctor FLYNN 1.2.840.114 [id number] Univers 00:00:00 00:00:00 Only Unassigned, JUSTYNA 350.1.13.10 ity of [place] [facility] 4.2.7.2.686 Sal as [phone] [address] 2019-04-24 2019-04-24 Telephone Joe [facility] 1.2.151.069 [id number] Univers 00:00:00 00:00:00 Chyna Naylor 350.1.13.10 i ty of [place].7.2.[place] [phone] [address] 2019-04-23 2019-04-23 [facility] 1.2.468.022 [id number] Univers 07:39:18 11:39:00 Encounter Hossein Naylor 350.1.13.10 ity of [place]2.7.2.[place] [phone] [address] 2019-04-21 2019-04-21 Orders Doctor RINA 1.2.840.114 [id number] Univers 00:00:00 00:00:00 Only Unassigned, JUSTYNA 350.1.13.10 ity of [place] [facility] 4.2.7.2.686 Sal as [phone] [address] 2019-04-18 2019-04-18 Office Joe [facility] 1.2.840.114 [id number] Univers 14:06:32 15:17:55 Visit Chyna Naylor 350.1.13.10 i ty of [place]2.7.2.[place] [phone] [address] 2019-04-18 2019-04-18 Outpatient R CHYNA PAULINO [facility] 10 [id number] Univers 13:30:00 15:17:55 CHYNA PAULINO i ty of [facility] 2019-04-18 2019-04-18 Orders Doctor RINA 1.2.840.114 [id number] Univers 00:00:00 00:00:00 Only Unassigned, JUSTYNA 350.1.13.10 ity of [place] [facility] 4.2.7.2.686 Sal as [phone] [address] 2019-04-15 2019-04-15 Telephone Joe [facility] 1.2.599.603 [id number] Univers 00:00:00 00:00:00 Shiwan [place] 350.1.13.10 i ty of [place].2.7.2.[place] [phone] [facility] 085 [facility] 2019-04-11 2019-04-11 Office Jocelin [facility] 1.2.840.114 [id number] Univers 12:28:18 13:50:27 Visit Yan [facility] 350.1.13.10 it y of [place] 4.2.7.2.686 Sal as Professio [phone] [facility] [address] [place] Office [facility] One 2019-04-11 2019-04-11 Telephone [facility] 1.2.561.753 [id number] Univers 00:00:00 00:00:00 Chyna Naylor 350.1.13.10 i ty of [place].2.7.2.[place] [phone] [address] 2019-04-11 2019-04-11 Orders Doctor RINA 1.2.840.114 [id number] Univers 00:00:00 00:00:00 Only Unassigned, JUSTYNA 350.1.13.10 ity of [place] [facility] 4.2.7.2.686 Sal as [phone] [address] 2019-04-08 2019-04-08 Orders Doctor RINA 1.2.840.114 [id number] [facility] 00:00:00 00:00:00 Only Unassigned, JUSTYNA 350.1.13.10 ity of [place] [facility] 4.2.7.2.686 Sal as [phone] [address] 2019-04-02 2019-04-02 [facility] [id number] [id number] Univers 08:11:51 11:11:00 Encounter Hossein Naylor 350.1.13.10 [place]2.[place] [phone] [place] [id number] [place] 2019-04-02 2019-04-02 Anesthesia [facility] 1.2.840.114 [id number] Univers 10:11:00 10:42:00 Rolan Naylor 350.1.13.10 [place] 4[place]7.2.[place] [phone] [facility] 020 [place] 2019-04-01 2019-04-01 Telephone Joe [facility] 1.2.168.133 [id number] Univers 00:00:00 00:00:00 Shiwan Buddy 350.1.13.10 [place]2.[place] [phone] [facility] 085 [facility] 2019-03-27 2019-03-27 Orders Doctor RINA 1.2.840.114 [id number] Univers 00:00:00 00:00:00 Only Unassigned, JUSTYNA 350.1.13.10 ity of [place] [facility] 4.2.7.2.686 Sal as [phone] [address] 2019-03-25 2019-03-25 Office Kartik AKKRISH 1.2.840.114 [id number] Univers 08:39:11 09:20:33 Visit [employer] 350.1.13.10 ity of [place] 4.2.7.2.686 Sal as Professio [phone] [facility] 044 [place] Office [facility] 2019-03-25 2019-03-25 Telephone Joe [facility] 1.2.797.141 [id number] Univers 00:00:00 00:00:00 Chyna Naylor 350.1.13.10 i [place]2.[place] [phone] [facility] 085 [facility] 2019 2019 [facility] 1.2.840.114 [id number] Univers 13:16:00 14:05:44 Visit Chyna Naylor 350.1.13.10 [place] [phone] [facility] 0[facility] 2019 2019 Orders Doctor RINA [id number] [id number] Univers 00:00:00 00:00:00 Only Unassigned, JUSTYNA 350.1.13.10 [facility] 4.2.7.2.686 Sal as [phone] [address] 2019-03-13 2019-03-13 Office Gisele [facility] 1.2.840.114 [id number] [facility] 08:29:51 09:03:17 Visit Isaiah Naylor 350.1.13.10 [place] [phone] Co dical nal 134 [facility] 2019-03-06 2019-03-06 [facility]phone [facility] [id number] Univers 00:00:00 00:00:00 Chyna [place] 350.1.13.10 [place] [phone] Co dicnd nal 085 [facility] 2019-03-04 2019-03-04 Telephone Abhilash Fonseca [facility] 1.2.840.114 [id number] Univers 00:00:00 00:00:00 Rj Naylor 350.1.13.10 [place] [phone] Co dical nal 134 [facility] 2018-11-11 2018-11-11 Outpatient R CHYNA PAULINO [facility] 10 [id number] [facility] 07:36:19 12:38:00 CHYNA PAULINO i ty of [facility] Results Test Description Test Time Test Comments Results Result Comments Source POCT GLUCOSE (AUTOMATED) 2022-10-03 18:29:07 Test Item Value Reference Range Interpretation Comme nts POCT GLU (test code = 1354856973) 234 mg/dL 70-110 H Lab Interpretation (test code = 72589-7) Abnormal [facility] GLUCOSE (AUTOMATED)2022-10-03 14:22:46 Test Item Value Reference Range Interpretation Comments POCT GLU (test code = 4088309908) 205 mg/dL 70-110 H Lab Interpretation (test code = Abnormal 60696-2) [facility] GLUCOSE (AUTOMATED)2022-10-03 14:22:46 Test Item Value Reference Range Interpretation Comments POCT GLU (test code = 1854949949) 203 mg/dL 70-110 H Lab Interpretation (test code = Abnormal 19597-1) [facility]22-[facility] 03:20:43 Test Item Value Reference Range Interpretation Comments POCT GLU (test code = 0938314642) 212 mg/dL 70-110 H Lab Interpretation (test code = Abnormal 26632-3) [facility] GLUCOSE (AUTOMATED)2022-10-03 00:07:30 Test Item Value Reference Range Interpretation Comments POCT GLU (test code = 9408758744) 105 mg/dL 70-110 Lab Interpretation (test code = Normal 04386-2) [facility] GLUCOSE (AUTOMATED)2022-10-02 18:01:44 Test Item Value Reference Range Interpretation Comments POCT GLU (test code = 3131323182) 161 mg/dL 70-110 H Lab Interpretation (test code = Abnormal 28075-1) [facility] GLUCOSE (AUTOMATED)2022-10-02 15:02:33 Test Item Value Reference Range Interpretation Comments POCT GLU (test code = 7727565281) 173 mg/dL 70-110 H Lab Interpretation (test code = Abnormal 93213-3) [facility] GLUCOSE (AUTOMATED)2022-10-02 09:57:59 Test Item Value Reference Range Interpretation Comments POCT GLU (test code = 5262231971) 280 mg/dL 70-110 H Lab Interpretation (test code = Abnormal 79839-5) [facility] GLUCOSE (AUTOMATED)2022-10-01 22:32:40 Test Item Value Reference Range Interpretation Comments POCT GLU (test code = 2414308970) 161 mg/dL 70-110 H Lab Interpretation (test code = Abnormal 73775-1) [facility] GLUCOSE (AUTOMATED)2022-10-01 18:12:43 Test Item Value Reference Range Interpretation Comments POCT GLU (test code = 6802103578) 255 mg/dL 70-110 H Lab Interpretation (test code = Abnormal 66503-1) [facility] GLUCOSE (AUTOMATED)2022-10-01 14:14:02 Test Item Value Reference Range Interpretation Comments POCT GLU (test code = 8259054411) 177 mg/dL 70-110 H Lab Interpretation (test code = Abnormal 70991-7) [facility] GLUCOSE (AUTOMATED)2022-09-30 22:54:59 Test Item Value Reference Range Interpretation Comments POCT GLU (test code = 7577907852) 146 mg/dL 70-110 H Lab Interpretation (test code = Abnormal 48487-1) [facility] GLUCOSE (AUTOMATED)2022-09-30 18:06:29 Test Item Value Reference Range Interpretation Comments POCT GLU (test code = 6624640378) 193 mg/dL 70-110 H Lab Interpretation (test code = Abnormal 76603-0) [facility] GLUCOSE (AUTOMATED)2022-09-30 14:07:11 Test Item Value Reference Range Interpretation Comments POCT GLU (test code = 9676623873) 150 mg/dL 70-110 H Lab Interpretation (test code = Abnormal 14983-6) [facility] GLUCOSE (AUTOMATED)2022-09-30 02:33:22 Test Item Value Reference Range Interpretation Comments POCT GLU (test code = 6134811169) 210 mg/dL 70-110 H Lab Interpretation (test code = Abnormal 56528-7) [facility] GLUCOSE (AUTOMATED)2022-09-29 22:56:31 Test Item Value Reference Range Interpretation Comments POCT GLU (test code = 7497024553) 141 mg/dL 70-110 H Lab Interpretation (test code = Abnormal 01952-7) [facility] 19:21:11 Test Item Value Reference Range Interpretation Comments Procalcitonin (test 0.03 ng/mL <=0.07 code = 9815934813) BAM (test code = BAM) INTERPRETATION OF PROCALCITONIN RESULTS IN ADULTS >= 18 YEARS OF AGE Initiation and discontinuation of antibiotics on patients with suspected or confirmed Lower Respiratory Tract Infection in Adults >= 18 years of age. + +-------- --------+ + -----+|Procalcitonin |Interpretation ?|Antibiotic ? ? |Considerations ? |ng/mL ? | ?|recommendation | ? + +-------- --------+ + -----+| <0.1 ? | Bacterial ? ? ?| Strongly ? ? ?| ? | ?| infection very | discouraged ? | Overruling: ? | ?| unlikely ? ? ? | ? | ? Clinically unstable ? ? ? + +-------- --------+ + ? High risk for adverse ? ? | <0.25 ?| Bacterial ? ? ?| Discouraged ? | ? outcome ? | ?| infection ? ? ?| ? | ? SEE IMPORTANT NOTE ?| ?| unlikely ? ? ? | ? | ? + +-------- --------+ + -----+| >=0.25 ? ? ? | Bacterial ? ? ?| Encouraged ? ?| ? | ?| infection ? ? ?| ? | ? | ?| likely ? | ? | Consider treatment failure ?+ +------- ---------+ -+ if levels does not decrease | >0.5 ? | Bacterial ? ? ?| Strongly ? ? ?| appropriately ? | ?| infection very | encouraged ? ?| ? | ?| likely ? | ? | ? + +-------- --------+ + -----+ Discontinuation of antibiotics in high-acuity patients with suspected or confirmed sepsis in Adults >= 18 years of age. + +-------- --------+ + -----+|Procalcitonin |Interpretation ?|Antibiotic ? ? |Considerations ? |ng/mL ? | ?|recommendation | ? + +-------- --------+ + -----+| <0.25 ?| Bacterial ? ? ?| Strongly ? ? ?| ? | ?| infection very | discouraged ? | Overruling: ? | ?| unlikely ? ? ? | ? | ? Clinically unstable ? ? ? + +-------- --------+ + ? High risk for adverse ? ? | <0.5 or drop | Bacterial ? ? ?| Discouraged ? | ? outcome ? | >80% from ? ?| infection ? ? ?| ? | ? SEE IMPORTANT NOTE ?| highest PCT ?| unlikely ? ? ? | ? | ? | level ?| ?| ? | ? + +-------- --------+ + -----+| >=0.5 ?| Bacterial ? ? ?| Encouraged ? ?| ? | ?| infection ? ? ?| ? | ? | ?| likely ? | ? | Consider treatment failure ?+ +------- ---------+ -+ if levels does not decrease | >1.0 ? | Bacterial ? ? ?| Strongly ? ? ?| appropriately ? | ?| infection very | encouraged ? ?| ? | ?| likely ? | ? | ? + +-------- --------+ + -----+ Percentage of drop of Procalcitonin calculation for Discontinuation of antibiotics in high-acuity patients with suspected or confirmed sepsis in Adults >= 18 years of age. ? Procalcitonin highest{}-Procalcitonin current{}Delta Procalcitonin = x100% ? Procalcitonin current {} IMPORTANT NOTE: Procalcitonin may be elevated without bacterial infection by physiologic stress related to trauma, warren, chronic dialysis, metastatic cancer, surgery in the past seven days, malaria, some fungal infections, and some forms of vasculitis. The interpretation algorithm may not apply to patients with immunosuppression (equivalent of >10 mg of prednisone daily), HIV with CD4 cell count < 350 cells/mm3, active malignancy on systemic chemotherapy, solid organ transplant or hematopoietic stem cell transplantation, or hospital acquired pneumonia. Additionally, some clinical trials of procalcitonin have excluded patients with shock requiring vasopressor use, acute respiratory failure requiring mechanical ventilation, or those with known lung abscess/empyema. For further information please refer to:[email or web address] Lab Interpretation Normal (test code = 71573-9) [facility] 17:59:51 Test Item Value Reference Range Interpretation Comments POCT GLU (test code = 5949298154) 250 mg/dL 70-110 H Lab Interpretation (test code = Abnormal 41944-7) [facility]2022-09-29 14:01:33 Test Item Value Reference Range Interpretation Comments POCT GLU (test code = 3622018774) 189 mg/dL 70-110 H Lab Interpretation (test code = Abnormal 71031-9) [facility] [id number] 13:02:54 Test Item Value Reference Range Interpretation Comments TROPONIN I (test code = 0.024 ng/mL <=0.034 4130169524) BMA (test code = BAM) Reference (Normal) Range (defined by the 99th percentile reference limit): <= 0.034 ng/mL Note: Cardiac troponin begins to rise 3-4 hours after the onset of ischemia. Repeat in 4-6 hours if the sample was drawn within 3-4 hours of the onset of the symptom and found normal. Diagnosis of myocardial injury is made with acute changes in cTn concentrations with at least one serial sample above the 99th percentile upper reference limit (URL), taken together with the patient's clinical presentation. Biotin has been reported to cause a negative bias, interpret results relative to patient's use of biotin. Lab Interpretation Normal (test code = 69078-3) [facility]. METABOLIC PANEL (40746)2022-09-29 13:00:05 Test Item Value Reference Range Interpretation Comments NA (test code = 139 mmol/L 135-145 2524595367) K (test code = 4.1 mmol/L 3.5-5.0 8337796952) CL (test code = 104 mmol/L 98-108 9005522451) CO2 TOTAL (test code = 24 mmol/L 23-31 0989889156) AGAP (test code = 11 2-16 4454075740) BUN (test code = 17 mg/dL 7-23 2676298729) GLUCOSE (test code = 156 mg/dL 70-110 H 4333240270) CREATININE (test code = 0.66 mg/dL 0.50-1.04 5621247871) TOTAL BILI (test code = 0.9 mg/dL 0.1-1.3 0375539694) CALCIUM (test code = 9.0 mg/dL 8.6-10.6 5662402698) T PROTEIN (test code = 8.0 g/dL 6.3-8.2 6559192835) ALBUMIN (test code = 4.5 g/dL 3.5-5.0 0033419910) ALK PHOS (test code = 92 U/L 34-122 8147641218) ALTv (test code = 24 U/L 5-35 1742-6) AST(SGOT) (test code = 25 U/L 13-40 1779912603) eGFR (test code = 89.6 mL/min/1.73m2 7504475068) BAM (test code = BAM) Association of Glomerular Filtration Rate (GFR) and Staging of Kidney Disease* + --+ --+ ------+| GFR (mL/min/1.73 m2) ?| With Kidney Damage ?| ?Without Kidney Damage+ --------+ --------+ +| ?>90 ?| ?Stage one ?| ? Normal ?+ ---+ ---+ -------+| ?60-89 ?| ?Stage two ?| ? Decreased GFR ? + --+ --+ ------+| ?30-59 ?| ?Stage three ?| ? Stage three ? + --+ --+ ------+| ?15-29 ?| ?Stage four ? | ? Stage four ?+ ---+ ---+ -------+| ?<15 (or dialysis) ? ?| ?Stage five ? | ? Stage five ?+ ---+ ---+ -------+ *Each stage assumes the associated GFR level has been in effect for at least three months. ?Stages 1 to 5, with or without kidney disease, indicate chronic kidney disease. Notes: Determination of stages one and two (with eGFR >59mL/min/1.73 m2) requires estimation of kidney damage for at least three months as defined by structural or functional abnormalities of the kidney, manifested by either:Pathological abnormalities or Markers of kidney damage (including abnormalities in the composition of the blood or urine or abnormalities in imaging tests). Lab Interpretation Abnormal (test code = 93710-2) [facility]MINAL [id number] 12:59:49 Test Item Value Reference Range Interpretation Comments NT-proBNP (test code = 271 pg/mL <=125 H 7257024259) BAM (test code = BAM) Biotin has been reported to cause a negative bias, interpret results relative to patient's use of biotin. Lab Interpretation (test Abnormal code = 09346-2) [facility]2023-02-24 12:49:30 Test Item Value Reference Range Interpretation Comments MAGNESIUM (test code = 0714835748) 2.1 mg/dL 1.7-2.4 Lab Interpretation (test code = Normal 88229-1) [facility]OS[facility]US2023-02-24 12:48:54 Test Item Value Reference Range Interpretation Comments PHOSPHORUS (test code = 2945553537) 2.8 mg/dL 2.5-5.0 Lab Interpretation (test code = Normal 47807-1) [facility] CenterCREATINE [id number] 12:48:34 Test Item Value Reference Range Interpretation Comments CK (test code = 8371510113) 90 U/L 33-194 Lab Interpretation (test code = Normal 13002-0) [facility] CenterSEDIMENTATION [id number] 11:45:53 Test Item Value Reference Range Interpretation Comments ESR (test code = 22 See_Comment H [Automated message] 99887-6) The system [employer] h generated this result transmitted ref erence range: 0 - 20 m m/HR. The reference r hailey was not used to interpret this result as normal/abnor mal. Lab Interpretation (test Abnormal code = 26382-4) [facility] CenterProthrombin Time / [id number] 10:39:54 Test Item Value Reference Range Interpretation Comments PROTIME PATIENT (test 13.0 See_Comment [Auto mated message] code = 5964-2) The system [employer] ich generated this result transmitted ref erence range: 12.0 - 1 4.7 Seconds. The re ference range was not u sed to interpret this result as normal/abnor mal. INR (test code = 6301-6) 1.0 Nor mal INR <1.1; Warfarin Therap eutic range 2.0 to 3. 0 or 2.5 to 3.5, dep ending upon the indica tions. Lab Interpretation (test Normal code = 53790-1) [facility] WITH [id number] 10:34:36 Test Item Value Reference Range Interpretation Comments WBC (test code = 4.92 See_Comment [Automated 6690-2) message] The sy stem which generated this result transmitted reference range : 4.30 - 11.10 10*3/?L. The reference range was not used to interpret this result as normal/abnormal . RBC (test code = 4.66 See_Comment [Automated 789-8) message] The sy stem which generated this result transmitted reference range : 3.93 - 5.25 10*6/?L. The reference range was not used to interpret this result as normal/abnormal . HGB (test code = 13.8 g/dL 11.6-15.0 718-7) HCT (test code = 41.8 % 35.7-45.2 4544-3) MCV (test code = 89.7 fL 80.6-95.5 787-2) MCH (test code = 29.6 pg 25.9-32.8 785-6) MCHC (test code = 33.0 g/dL 31.6-35.1 786-4) RDW-SD (test code = 41.9 fL 39.0-49.9 15309-5) RDW-CV (test code = 12.9 % 12.0-15.5 788-0) PLT (test code = 262 See_Comment [Automated 777-3) message] The sy stem which generated this result transmitted reference range : 166 - 358 10*3/ ?L. The reference r hailey was not used to interpret this result as normal/abnormal . MPV (test code = 10.1 fL 9.5-12.9 25306-4) NRBC/100 WBC (test 0.0 See_Comment [Automat ed code = 1866612912) message] The system which generated this result transmitted reference range : 0.0 - 10.0 /100 WBCs. The refer ence range was not u sed to interpret th is result as normal/abnormal . NRBC x10^3 (test code See_Comment [Auto mated = 6676154175) message] The s ystem which generated this result transmitted reference range : 10*3/?L. The reference range was not used to interpret this result as normal/abnormal . GRAN MAT (NEUT) % 78.9 % (test code = 770-8) IMM GRAN % (test code 0.20 % = 4658175895) LYMPH % (test code = 17.7 % 736-9) MONO % (test code = 1.6 % 5905-5) EOS % (test code = 1.0 % 713-8) BASO % (test code = 0.6 % 706-2) GRAN MAT x10^3(ANC) 3.88 10*3/uL 1.88-7.09 (test code = 1969188325) IMM GRAN x10^3 (test 0.00-0.06 code = 0462436948) LYMPH x10^3 (test code 0.87 10*3/uL 1.32-3.29 L = 731-0) MONO x10^3 (test code 0.08 10*3/uL 0.33-0.92 L = 742-7) EOS x10^3 (test code = 0.05 10*3/uL 0.03-0.39 711-2) BASO x10^3 (test code 0.03 10*3/uL 0.01-0.07 = 704-7) Lab Interpretation Abnormal (test code = 30673-3) [facility] GLUCOSE (AUTOMATED)2022-09-29 03:25:52 Test Item Value Reference Range Interpretation Comments POCT GLU (test code = 1978051116) 152 mg/dL 70-110 H Lab Interpretation (test code = Abnormal 56409-2) [facility] GLUCOSE (AUTOMATED)2022-09-28 22:58:36 Test Item Value Reference Range Interpretation Comments POCT GLU (test code = 3004980390) 171 mg/dL 70-110 H Lab Interpretation (test code = Abnormal 60409-2) [facility] URINALYSIS W SPECIFIC [id number] 15:15:00 Test Item Value Reference Range Interpretation Comments POCT U SP GRAV (test code = 1.015 mg/dl 1.005-1.025 3255) POCT PH U (test code = 3254) 6 mg/dl 5-8 POCT U LEUK EST (test code = + Negative - Negative 3263) POCT U NIT (test code = neg Negative - Negative 3262) POCT U PROT (test code = neg Negative - Negative 3259) POCT U GLU (test code = neg Negative - Negative 3256) POCT U KETONE (test code = neg Negative - Negative 3258) POCT U UROBILI (test code = neg 0.2-1 3260) POCT U BILI (test code = neg Negative - Negative 3261) POCT U BLD (test code = trace Negative - Negative 3257) POCT U COLOR (test code = light yellow 3266) POCT U APPEAR (test code = clear 3267) [facility] URINALYSIS W SPECIFIC [id number] 15:15:00 Test Item Value Reference Range Interpretation Comments POCT U SP GRAV (test code = 1.015 mg/dl 1.005-1.025 3255) POCT PH U (test code = 3254) 6 mg/dl 5-8 POCT U LEUK EST (test code = + Negative - Negative 3263) POCT U NIT (test code = neg Negative - Negative 3262) POCT U PROT (test code = neg Negative - Negative 3259) POCT U GLU (test code = neg Negative - Negative 3256) POCT U KETONE (test code = neg Negative - Negative 3258) POCT U UROBILI (test code = neg 0.2-1 3260) POCT U BILI (test code = neg Negative - Negative 3261) POCT U BLD (test code = trace Negative - Negative 3257) POCT U COLOR (test code = light yellow 3266) POCT U APPEAR (test code = clear 3267) [place] [id number] 18:33:33 Test Item Value Reference Range Interpretation Comments APTT Patient (test 31 See_Comment [Automat ed code = 3173-2) message] The system which generated this result transmitted reference range : 23 - 38 Seconds . The reference range was not used to interpr et this result as normal/abnormal . BAM (test code = BAM) The [facility] patient population mean normal value for aPTT is 30 seconds. Lab Interpretation Normal (test code = 79892-8) [place] [id number] 18:33:33 Test Item Value Reference Range Interpretation Comments APTT Patient (test 31 See_Comment [Automat ed code = 3173-2) message] The system which generated this result transmitted reference range : 23 - 38 Seconds . The reference range was not used to interpr et this result as normal/abnormal . BAM (test code = BAM) The [facility] patient population mean normal value for aPTT is 30 seconds. Lab Interpretation Normal (test code = 64255-6) [facility] / [id number] 18:31:10 Test Item Value Reference Range Interpretation Comments PROTIME PATIENT (test 13.2 See_Comment [Auto mated message] code = 5964-2) The system [facility] generated this result transmitted ref erence range: 12.0 - 1 4.7 Seconds. The re ference range was not u sed to interpret this result as normal/abnor mal. INR (test code = 6301-6) 1.0 Nor mal INR <1.1; Warfarin Therap eutic range 2.0 to 3. 0 or 2.5 to 3.5, dep ending upon the indica tions. Lab Interpretation (test Normal code = 38604-7) [facility] / [id number] 18:31:10 Test Item Value Reference Range Interpretation Comments PROTIME PATIENT (test 13.2 See_Comment [Auto mated message] code = 5964-2) The system [facility] generated this result transmitted ref erence range: 12.0 - 1 4.7 Seconds. The re ference range was not u sed to interpret this result as normal/abnor mal. INR (test code = 6301-6) 1.0 Nor mal INR <1.1; Warfarin Therap eutic range 2.0 to 3. 0 or 2.5 to 3.5, dep ending upon the indica tions. Lab Interpretation (test Normal code = 77473-2) [facility] WITH [id number] 18:25:14 Test Item Value Reference Range Interpretation Comments WBC (test code = 6.00 See_Comment [Automated message] 6690-2) The system [facility] generated this result transmitted ref erence range: 4.30 - 1 1.10 10*3/?L. The re ference range was not u sed to interpret this result as normal/abnor mal. RBC (test code = 4.64 See_Comment [Automated message] 789-8) The system [employer] generated this result transmitted ref erence range: 3.93 - 5 .25 10*6/?L. The re ference range was not u sed to interpret this result as normal/abnor mal. HGB (test code = 13.7 g/dL 11.6-15.0 718-7) HCT (test code = 42.1 % 35.7-45.2 4544-3) MCV (test code = 90.7 fL 80.6-95.5 787-2) MCH (test code = 29.5 pg 25.9-32.8 785-6) MCHC (test code = 32.5 g/dL 31.6-35.1 786-4) RDW-SD (test code 42.2 fL 39.0-49.9 = 73468-7) RDW-CV (test code 13.0 % 12.0-15.5 = 788-0) PLT (test code = 274 See_Comment [Automated message] 777-3) The system [employer] generated this result transmitted ref erence range: 166 - 35 8 10*3/?L. The re ference range was not u sed to interpret this result as normal/abnor mal. MPV (test code = 9.7 fL 9.5-12.9 67625-7) NRBC/100 WBC (test 0.0 See_Comment [Automat ed message] code = 0393705088) The syste m which generated this result transmitted ref erence range: 0.0 - 10 .0 /100 WBCs. The refer ence range was not u sed to interpret this result as normal/abnor mal. NRBC x10^3 (test See_Comment [Automated message] code = 8839485296) The syste m which generated this result transmitted ref erence range: 10*3/?L. The reference range was not used to interpr et this result as normal/abnormal . GRAN MAT (NEUT) % 57.8 % (test code = 770-8) IMM GRAN % (test 0.20 % code = 6369984550) LYMPH % (test code 28.5 % = 736-9) MONO % (test code 9.0 % = 5905-5) EOS % (test code = 3.8 % 713-8) BASO % (test code 0.7 % = 706-2) GRAN MAT 3.47 10*3/uL 1.88-7.09 x10^3(ANC) (test code = 4776335532) IMM GRAN x10^3 0.00-0.06 (test code = 3743683175) LYMPH x10^3 (test 1.71 10*3/uL 1.32-3.29 code = 731-0) MONO x10^3 (test 0.54 10*3/uL 0.33-0.92 code = 742-7) EOS x10^3 (test 0.23 10*3/uL 0.03-0.39 code = 711-2) BASO x10^3 (test 0.04 10*3/uL 0.01-0.07 code = 704-7) [facility] WITH [id number] 18:25:14 Test Item Value Reference Range Interpretation Comments WBC (test code = 6.00 See_Comment [Automated message] 1690-2) The system [employer] generated this result transmitted ref erence range: 4.30 - 1 1.10 10*3/?L. The re ference range was not u sed to interpret this result as normal/abnor mal. RBC (test code = 4.64 See_Comment [Automated message] 039-8) The system [employer] generated this result transmitted ref erence range: 3.93 - 5 .25 10*6/?L. The re ference range was not u sed to interpret this result as normal/abnor mal. HGB (test code = 13.7 g/dL 11.6-15.0 718-7) HCT (test code = 42.1 % 35.7-45.2 4544-3) MCV (test code = 90.7 fL 80.6-95.5 787-2) MCH (test code = 29.5 pg 25.9-32.8 785-6) MCHC (test code = 32.5 g/dL 31.6-35.1 786-4) RDW-SD (test code 42.2 fL 39.0-49.9 = 05100-3) RDW-CV (test code 13.0 % 12.0-15.5 = 788-0) PLT (test code = 274 See_Comment [Automated message] 777-3) The system whic h generated this result transmitted ref erence range: 166 - 35 8 10*3/?L. The re ference range was not u sed to interpret this result as normal/abnor mal. MPV (test code = 9.7 fL 9.5-12.9 93680-0) NRBC/100 WBC (test 0.0 See_Comment [Automat ed message] code = [id number]) The syste m which generated this result transmitted ref erence range: 0.0 - 10 .0 /100 WBCs. The refer ence range was not u sed to interpret this result as normal/abnor mal. NRBC x10^3 (test See_Comment [Automated message] code = 6374848767) The syste m which generated this result transmitted ref erence range: 10*3/?L. The reference range was not used to interpr et this result as normal/abnormal . GRAN MAT (NEUT) % 57.8 % (test code = 770-8) IMM GRAN % (test 0.20 % code = 6113214619) LYMPH % (test code 28.5 % = 736-9) MONO % (test code 9.0 % = 5905-5) EOS % (test code = 3.8 % 713-8) BASO % (test code 0.7 % = 706-2) GRAN MAT 3.47 10*3/uL 1.88-7.09 x10^3(ANC) (test code = 0361338420) IMM GRAN x10^3 0.00-0.06 (test code = 7475329880) LYMPH x10^3 (test 1.71 10*3/uL 1.32-3.29 code = 731-0) MONO x10^3 (test 0.54 10*3/uL 0.33-0.92 code = 742-7) EOS x10^3 (test 0.23 10*3/uL 0.03-0.39 code = 711-2) BASO x10^3 (test 0.04 10*3/uL 0.01-0.07 code = 704-7) [facility] [id number] 22:51:25 Test Item Value Reference Interpretation Comments Range TROPONIN I (test 0.023 ng/mL See_Comment [Automated code = 1111557328) message] The system which generated this result transmitted reference range : <=0.034. The reference range was not used to interpret this result as normal/abnormal . BAM (test code = Reference (Normal) BAM) Range (defined by the 99th percentile reference limit): <= 0.034 ng/mL Note: Cardiac troponin begins to rise 3-4 hours after the onset of ischemia. Repeat in 4-6 hours if the sample was drawn within 3-4 hours of the onset of the symptom and found normal. Diagnosis of myocardial injury is made with acute changes in cTn concentrations with at least one serial sample above the 99th percentile upper reference limit (URL), taken together with the patient's clinical presentation. Biotin has been reported to cause a negative bias, interpret results relative to patient's use of biotin. Lab Interpretation Normal (test code = 25277-1) [facility] [id number] 22:48:02 Test Item Value Reference Range Interpretation Comments NT-proBNP (test code 256 pg/mL See_Comment H [Autom ated = 3953371100) message] The system which generated this result transmitted reference range : <=125. The reference range was not used to interpret this result as normal/abnormal . BAM (test code = BAM) Biotin has been reported to cause a negative bias, interpret results relative to patient's use of biotin. Lab Interpretation Abnormal (test code = 87419-2) [facility]COMP. METABOLIC PANEL ([id number] 22:39:04 Test Item Value Reference Range Interpretation Comments NA (test code = 141 mmol/L 135-145 1116777135) K (test code = 3.7 mmol/L 3.5-5.0 1044037584) CL (test code = 105 mmol/L 98-108 0186678782) CO2 TOTAL (test code = 27 mmol/L 23-31 9055552751) AGAP (test code = 2-16 9582303782) BUN (test code = 13 mg/dL 7-23 5189485670) GLUCOSE (test code = 119 mg/dL 70-110 H 3724755009) CREATININE (test code = 0.66 mg/dL 0.50-1.04 2505265985) TOTAL BILI (test code = 0.9 mg/dL 0.1-1.6 9862795718) CALCIUM (test code = 9.2 mg/dL 8.6-10.6 4657738937) T PROTEIN (test code = 7.2 g/dL 6.3-8.2 9187176498) ALBUMIN (test code = 4.4 g/dL 3.5-5.0 0963225394) ALK PHOS (test code = 97 U/L 34-122 1027670986) ALTv (test code = 19 U/L 5-35 2-6) AST(SGOT) (test code = 21 U/L 13-40 5741270133) eGFR (test code = mL/min/1.73m2 7022782091) BAM (test code = BAM) Association of Glomerular Filtration Rate (GFR) and Staging of Kidney Disease* + --+ --+ ------+| GFR (mL/min/1.73 m2) ?| With Kidney Damage ?| ?Without Kidney Damage+ --------+ --------+ +| ?>90 ?| ?Stage one ?| ? Normal ?+ ---+ ---+ -------+| ?60-89 ?| ?Stage two ?| ? Decreased GFR ? + --+ --+ ------+| ?30-59 ?| ?Stage three ?| ? Stage three ? + --+ --+ ------+| ?15-29 ?| ?Stage four ? | ? Stage four ?+ ---+ ---+ -------+| ?<15 (or dialysis) ? ?| ?Stage five ? | ? Stage five ?+ ---+ ---+ -------+ *Each stage assumes the associated GFR level has been in effect for at least three months. ?Stages 1 to 5, with or without kidney disease, indicate chronic kidney disease. Notes: Determination of stages one and two (with eGFR >59mL/min/1.73 m2) requires estimation of kidney damage for at least three months as defined by structural or functional abnormalities of the kidney, manifested by either:Pathological abnormalities or Markers of kidney damage (including abnormalities in the composition of the blood or urine or abnormalities in imaging tests). Lab Interpretation Abnormal (test code = 11919-3) [facility] WITH [id number] 22:24:42 Test Item Value Reference Range Interpretation Comments WBC (test code = See_Comment [Automated message] 6690-2) The system [employer] generated this result transmitted ref erence range: 4.30 - 1 1.10 10*3/?L. The re ference range was not u sed to interpret this result as normal/abnor mal. RBC (test code = See_Comment [Automated message] 789-8) The system [employer] generated this result transmitted ref erence range: 3.93 - 5 .25 10*6/?L. The re ference range was not u sed to interpret this result as normal/abnor mal. HGB (test code = 12.7 g/dL 11.6-15.0 718-7) HCT (test code = 40.0 % 35.7-45.2 4544-3) MCV (test code = 90.9 fL 80.6-95.5 787-2) MCH (test code = 28.9 pg 25.9-32.8 785-6) MCHC (test code = 31.8 g/dL 31.6-35.1 786-4) RDW-SD (test code 44.0 fL 39.0-49.9 = 94061-0) RDW-CV (test code 13.2 % 12.0-15.5 = 788-0) PLT (test code = See_Comment [Automated message] 777-3) The system [employer] generated this result transmitted ref erence range: 166 - 35 8 10*3/?L. The re ference range was not u sed to interpret this result as normal/abnor mal. MPV (test code = 9.7 fL 9.5-12.9 97284-1) NRBC/100 WBC (test See_Comment [Automat ed message] code = 5969592889) The [employer] [place] which generated this result transmitted ref erence range: 0.0 - 10 .0 /100 WBCs. The refer ence range was not u sed to interpret this result as normal/abnor mal. NRBC x10^3 (test See_Comment [Automated message] code = 2537240054) The syste m which generated this result transmitted ref erence range: 10*3/?L. The reference range was not used to interpr et this result as normal/abnormal . GRAN MAT (NEUT) % 66.6 % (test code = 770-8) IMM GRAN % (test 0.20 % code = 1496607139) LYMPH % (test code 20.6 % = 736-9) MONO % (test code 8.9 % = 5905-5) EOS % (test code = 3.1 % 713-8) BASO % (test code 0.6 % = 706-2) GRAN MAT 5.37 10*3/uL 1.88-7.09 x10^3(ANC) (test code = 2452791797) IMM GRAN x10^3 0.00-0.06 (test code = 1431292079) LYMPH x10^3 (test 1.66 10*3/uL 1.32-3.29 code = 731-0) MONO x10^3 (test 0.72 10*3/uL 0.33-0.92 code = 742-7) EOS x10^3 (test 0.25 10*3/uL 0.03-0.39 code = 711-2) BASO x10^3 (test 0.05 10*3/uL 0.01-0.07 code = 704-7) [facility] URINALYSIS W/O SPECIFIC [id number] 14:50:00 Test Item Value Reference Range Interpretation Comments POCT PH U (test code = 3254) n/a 5-8 POCT U LEUK EST (test code = n/a Negative - Negative 3263) POCT U NIT (test code = 3262) n/a Negative - Negative POCT U PROT (test code = 3259) negative Negative - Negative POCT U GLU (test code = 3256) negative Negative - Negative POCT U KETONE (test code = 3258) n/a Negative - Negative POCT U BLD (test code = 3257) n/a Negative - Negative [facility] URINALYSIS W/O SPECIFIC [id number] 14:50:00 Test Item Value Reference Range Interpretation Comments POCT PH U (test code = 3254) n/a 5-8 POCT U LEUK EST (test code = n/a Negative - Negative 3263) POCT U NIT (test code = 3262) n/a Negative - Negative POCT U PROT (test code = 3259) negative Negative - Negative POCT U GLU (test code = 3256) negative Negative - Negative POCT U KETONE (test code = 3258) n/a Negative - Negative POCT U BLD (test code = 3257) n/a Negative - [facility] [id number] 14:50:00 Test Item Value Reference Range Interpretation Comments POCT PH U (test code = 3254) n/a 5-8 POCT U LEUK EST (test code = n/a Negative - Negative 3263) POCT U NIT (test code = 3262) n/a Negative - Negative POCT U PROT (test code = 3259) negative Negative - Negative POCT U GLU (test code = 3256) negative Negative - Negative POCT U KETONE (test code = 3258) n/a Negative - Negative POCT U BLD (test code = 3257) n/a Negative - Negative [facility] [id number] 14:50:00 Test Item Value Reference Range Interpretation Comments POCT PH U (test code = 3254) n/a 5-8 POCT U LEUK EST (test code = n/a Negative - Negative 3263) POCT U NIT (test code = 3262) n/a Negative - Negative POCT U PROT (test code = 3259) negative Negative - Negative POCT U GLU (test code = 3256) negative Negative - Negative POCT U KETONE (test code = 3258) n/a Negative - Negative POCT U BLD (test code = 3257) n/a Negative - Negative [facility] CenterSEDIMENTATION [id number] 09:14:48 Test Item Value Reference Range Interpretation Comments ESR (test code = 17904-9) See_Comment [ Automated message] The system [employer] generated this result transmitted ref erence range: 2 - 30 m m/HR. The reference r hailey was not used to interpret this result as normal/abnor mal. Lab Interpretation (test Normal code = 95730-8) [facility] [id number] 09:14:48 Test Item Value Reference Range Interpretation Comments ESR (test code = 63563-0) See_Comment [ Automated message] The system [employer] generated this result transmitted ref erence range: 2 - 30 m m/HR. The reference r hailey was not used to interpret this result as normal/abnor mal. Lab Interpretation (test Normal code = 57668-5) [facility] [id number] 09:14:48 Test Item Value Reference Range Interpretation Comments ESR (test code = 54756-4) See_Comment [ Automated message] The system [employer] generated this result transmitted ref erence range: 2 - 30 m m/HR. The reference r hailey was not used to interpret this result as normal/abnor mal. Lab Interpretation (test Normal code = 78720-3) [facility] [id number] 08:56:29 Test Item Value Reference Range Interpretation Comments URIC ACID (test code = 2321212828) 4.7 mg/dL 2.9-6.0 Lab Interpretation (test code = Normal 88910-4) [facility] [id number] 08:56:29 Test Item Value Reference Range Interpretation Comments URIC ACID (test code = 3830891258) 4.7 mg/dL 2.9-6.0 Lab Interpretation (test code = Normal 33037-4) [facility] [id number] 08:56:29 Test Item Value Reference Range Interpretation Comments URIC ACID (test code = 4952531584) 4.7 mg/dL 2.9-6.0 Lab Interpretation (test code = Normal 31494-5) [facility] WITH [id number] 08:17:22 Test Item Value Reference Range Interpretation Comments WBC (test code = See_Comment H [Automated 5292-2) message] The sy stem which generated this result transmitted reference range : 4.30 - 11.10 10*3/?L. The reference range was not used to interpret this result as normal/abnormal . RBC (test code = See_Comment [Automated 789-8) message] The sy stem which generated this result transmitted reference range : 3.93 - 5.25 10*6/?L. The reference range was not used to interpret this result as normal/abnormal . HGB (test code = 13.0 g/dL 11.6-15.0 718-7) HCT (test code = 40.2 % 35.7-45.2 4544-3) MCV (test code = 90.7 fL 80.6-95.5 787-2) MCH (test code = 29.3 pg 25.9-32.8 785-6) MCHC (test code = 32.3 g/dL 31.6-35.1 786-4) RDW-SD (test code = 43.9 fL 39.0-49.9 81145-0) RDW-CV (test code = 13.3 % 12.0-15.5 788-0) PLT (test code = See_Comment [Automated 777-3) message] The sy stem which generated this result transmitted reference range : 166 - 358 10*3/ ?L. The reference r hailey was not used to interpret this result as normal/abnormal . MPV (test code = 10.4 fL 9.5-12.9 41901-0) NRBC/100 WBC (test See_Comment [Automat ed code = 9961310370) message] The system which generated this result transmitted reference range : 0.0 - 10.0 /100 WBCs. The refer ence range was not u sed to interpret th is result as normal/abnormal . NRBC x10^3 (test code See_Comment [Auto mated = 6872027206) message] The s ystem which generated this result transmitted reference range : 10*3/?L. The reference range was not used to interpret this result as normal/abnormal . GRAN MAT (NEUT) % 64.6 % (test code = 770-8) IMM GRAN % (test code 0.30 % = 0421150389) LYMPH % (test code = 25.2 % 736-9) MONO % (test code = 8.7 % 5905-5) EOS % (test code = 0.7 % 713-8) BASO % (test code = 0.5 % 706-2) GRAN MAT x10^3(ANC) 7.47 10*3/uL 1.88-7.09 H (test code = 9653538607) IMM GRAN x10^3 (test 0.03 10*3/uL 0.00-0.06 code = 3100466634) LYMPH x10^3 (test code 2.91 10*3/uL 1.32-3.29 = 731-0) MONO x10^3 (test code 1.00 10*3/uL 0.33-0.92 H = 742-7) EOS x10^3 (test code = 0.08 10*3/uL 0.03-0.39 711-2) BASO x10^3 (test code 0.06 10*3/uL 0.01-0.07 = 704-7) Lab Interpretation Abnormal (test code = 28081-3) [facility] WITH [id number] 08:17:22 Test Item Value Reference Range Interpretation Comments WBC (test code = See_Comment H [Automated 0661-2) message] The sy stem which generated this result transmitted reference range : 4.30 - 11.10 10*3/?L. The reference range was not used to interpret this result as normal/abnormal . RBC (test code = See_Comment [Automated 636-8) message] The sy stem which generated this result transmitted reference range : 3.93 - 5.25 10*6/?L. The reference range was not used to interpret this result as normal/abnormal . HGB (test code = 13.0 g/dL 11.6-15.0 718-7) HCT (test code = 40.2 % 35.7-45.2 4544-3) MCV (test code = 90.7 fL 80.6-95.5 787-2) MCH (test code = 29.3 pg 25.9-32.8 785-6) MCHC (test code = 32.3 g/dL 31.6-35.1 786-4) RDW-SD (test code = 43.9 fL 39.0-49.9 14659-2) RDW-CV (test code = 13.3 % 12.0-15.5 788-0) PLT (test code = See_Comment [Automated 229-3) message] The sy stem which generated this result transmitted reference range : 166 - 358 10*3/ ?L. The reference r hailey was not used to interpret this result as normal/abnormal . MPV (test code = 10.4 fL 9.5-12.9 93078-5) NRBC/100 WBC (test See_Comment [Automat ed code = 1785436521) message] The system which generated this result transmitted reference range : 0.0 - 10.0 /100 WBCs. The refer ence range was not u sed to interpret th is result as normal/abnormal . NRBC x10^3 (test code See_Comment [Auto mated = 7848177200) message] The s ystem which generated this result transmitted reference range : 10*3/?L. The reference range was not used to interpret this result as normal/abnormal . GRAN MAT (NEUT) % 64.6 % (test code = 770-8) IMM GRAN % (test code 0.30 % = 1673423422) LYMPH % (test code = 25.2 % 736-9) MONO % (test code = 8.7 % 5905-5) EOS % (test code = 0.7 % 713-8) BASO % (test code = 0.5 % 706-2) GRAN MAT x10^3(ANC) 7.47 10*3/uL 1.88-7.09 H (test code = 2102017689) IMM GRAN x10^3 (test 0.03 10*3/uL 0.00-0.06 code = 9744786255) LYMPH x10^3 (test code 2.91 10*3/uL 1.32-3.29 = 731-0) MONO x10^3 (test code 1.00 10*3/uL 0.33-0.92 H = 742-7) EOS x10^3 (test code = 0.08 10*3/uL 0.03-0.39 711-2) BASO x10^3 (test code 0.06 10*3/uL 0.01-0.07 = 704-7) Lab Interpretation Abnormal (test code = 18558-3) [facility] WITH [id number] 08:17:22 Test Item Value Reference Range Interpretation Comments WBC (test code = See_Comment H [Automated 6690-2) message] The sy stem which generated this result transmitted reference range : 4.30 - 11.10 10*3/?L. The reference range was not used to interpret this result as normal/abnormal . RBC (test code = See_Comment [Automated 789-8) message] The sy stem which generated this result transmitted reference range : 3.93 - 5.25 10*6/?L. The reference range was not used to interpret this result as normal/abnormal . HGB (test code = 13.0 g/dL 11.6-15.0 718-7) HCT (test code = 40.2 % 35.7-45.2 4544-3) MCV (test code = 90.7 fL 80.6-95.5 787-2) MCH (test code = 29.3 pg 25.9-32.8 785-6) MCHC (test code = 32.3 g/dL 31.6-35.1 786-4) RDW-SD (test code = 43.9 fL 39.0-49.9 07878-2) RDW-CV (test code = 13.3 % 12.0-15.5 788-0) PLT (test code = See_Comment [Automated 777-3) message] The sy stem which generated this result transmitted reference range : 166 - 358 10*3/ ?L. The reference r hailey was not used to interpret this result as normal/abnormal . MPV (test code = 10.4 fL 9.5-12.9 04391-9) NRBC/100 WBC (test See_Comment [Automat ed code = 3424664663) message] The system which generated this result transmitted reference range : 0.0 - 10.0 /100 WBCs. The refer ence range was not u sed to interpret th is result as normal/abnormal . NRBC x10^3 (test code See_Comment [Auto mated = 5310288634) message] The s ystem which generated this result transmitted reference range : 10*3/?L. The reference range was not used to interpret this result as normal/abnormal . GRAN MAT (NEUT) % 64.6 % (test code = 770-8) IMM GRAN % (test code 0.30 % = 6082506155) LYMPH % (test code = 25.2 % 736-9) MONO % (test code = 8.7 % 5905-5) EOS % (test code = 0.7 % 713-8) BASO % (test code = 0.5 % 706-2) GRAN MAT x10^3(ANC) 7.47 10*3/uL 1.88-7.09 H (test code = 3827534113) IMM GRAN x10^3 (test 0.03 10*3/uL 0.00-0.06 code = 7905437865) LYMPH x10^3 (test code 2.91 10*3/uL 1.32-3.29 = 731-0) MONO x10^3 (test code 1.00 10*3/uL 0.33-0.92 H = 742-7) EOS x10^3 (test code = 0.08 10*3/uL 0.03-0.39 711-2) BASO x10^3 (test code 0.06 10*3/uL 0.01-0.07 = 704-7) Lab Interpretation Abnormal (test code = 11641-5) [id number] 07:05:00 Test Item Value Reference Range Interpretation Comments GLUBED (test code = 92 mg/dL 74-106 N Performe d by certified GLUBED) test engine operator at [facility] [id number] 18:54:00 Test Item Value Reference Range Interpretation Comments GLUBED (test code = 112 mg/dL 74-106 H Performe d by certified GLUBED) test engine operator at [facility] [id number] 15:38:00 Test Item Value Reference Range Interpretation Comments GLUBED (test code = 117 mg/dL 74-106 H Performe d by certified GLUBED) test engine operator at [facility] [id number] 12:07:00 Test Item Value Reference Range Interpretation Comments GLUBED (test code = 75 mg/dL 74-106 N Performe d by certified GLUBED) test engine operator at [facility] [id number] 11:25:00 Test Item Value Reference Range Interpretation Comments GLUBED (test code = 59 mg/dL 74-106 L Performe d by certified GLUBED) test engine operator at [facility] [id number] 07:27:00 Test Item Value Reference Range Interpretation Comments GLUBED (test code = 78 mg/dL 74-106 N Performe d by certified GLUBED) test engine operator at [facility] [id number] 19:55:00 Test Item Value Reference Range Interpretation Comments GLUBED (test code = 73 mg/dL 74-106 L Performe d by certified GLUBED) test engine operator at [facility] [id number] 16:05:00 Test Item Value Reference Range Interpretation Comments GLUBED (test code = 122 mg/dL 74-106 H Performe d by certified GLUBED) test engine operator at [facility] [id number] 20:19:00 Test Item Value Reference Range Interpretation Comments GLUBED (test code = 121 mg/dL 74-106 H Performe d by certified GLUBED) test engine operator at [facility] [id number] 15:21:00 Test Item Value Reference Range Interpretation Comments GLUBED (test code = 125 mg/dL 74-106 H Performe d by certified GLUBED) test engine operator at [facility] [id number] 11:11:00 Test Item Value Reference Range Interpretation Comments GLUBED (test code = 102 mg/dL 74-106 N Performe d by certified GLUBED) test engine operator at [facility] [id number] 07:24:00 Test Item Value Reference Range Interpretation Comments GLUBED (test code = 94 mg/dL 74-106 N Performe d by certified GLUBED) test engine operator at [facility] BASIC METABOLIC [id number] 06:08:00 Test Item Value Reference Range Interpretation Comments SODIUM (test code = 142 mmol/L 136-145 N NA) POTASSIUM (test 4.0 mmol/L 3.5-5.1 N code = K) CHLORIDE (test code 105.0 mmol/L 98-107 N = CL) CARBON DIOXIDE 27.0 mmol/L 21-32 N (test code = CO2) ANION GAP (test 14.0 10-20 N code = GAP) GLUCOSE (test code 82 mg/dL 74-106 N = GLU) BLOOD UREA NITROGEN 12 mg/dL 7-18 N (test code = BUN) GLOMERULAR > 60 mL/min See_Comment The Glomerular FILTRATION RATE Filtration R ate is a (test code = GFR) calculated parameterbased on serum Creatinin e, patient age and sex. GFR valuesless than 60 mL/min/1.73 squ are meters are nick cative ofChronic Kidne y Disease. Values less than 15 mL/min/1.73squa re meters indicate Kidney failure. The calculation for GFR is based on the CK D-EPI (2020) calculat ion. This formulais race indifferent and is the recommended for claudia for GFRby the N [facility] for Ad[facility].The GFR will not calculate i f the sex is unknown or if thepatient's ag e is <18 years. [Aut omated message] The sy stem which generated this result transmit raphael reference range : >=60. The reference r hailey was not used to interpret this result as normal/abnor mal. CREATININE (test 0.80 mg/dL 0.55-1.02 N Note yepez ge in code = CREAT) reference rang e due to change in reage nt. BUN/CREATININE 15.2 10-20 N RATIO (test code = BUN/CREA) CALCIUM (test code 8.6 mg/dL 8.5-10.1 N = CA) CBC W/AUTO [id number] 06:01:00 Test Item Value Reference Range Interpretation Comments WHITE BLOOD CELL (test code = 7.0 K/mm3 4.5-12.5 N WBC) RED BLOOD CELL (test code = 4.66 mill/mm3 3.7-5.2 N RBC) HEMOGLOBIN (test code = HGB) 13.7 gram/dL 11.5-15.5 N HEMATOCRIT (test code = HCT) 42.6 % 36.0-46.0 N MEAN CELL VOLUME (test code = 91.4 fL 80-98 N MCV) MEAN CELL HGB (test code = MCH) 29.4 picogram 27.0-33.0 N MEAN CELL HGB CONCETRATION 32.2 gram/dL 33.0-36.0 L (test code = MCHC) RED CELL DISTRIBUTION WIDTH 12.7 % 11.6-16.2 N (test code = RDW) RED CELL DISTRIBUTION WIDTH SD 42.2 fL 37.0-51.0 N (test code = RDW-SD) PLATELET COUNT (test code = 227 K/mm3 150-450 N PLT) MEAN PLATELET VOLUME (test code 10.0 fL 6.7-11.0 N = MPV) NEUTROPHIL % (test code = NT%) 55.4 % 39.0-69.0 N IMMATURE GRANULOCYTE % (test 0.1 % 0.0-5.0 N code = IG%) LYMPHOCYTE % (test code = LY%) 26.7 % 25.0-55.0 N MONOCYTE % (test code = MO%) 7.5 % 0.0-10.0 N EOSINOPHIL % (test code = EO%) 9.2 % 0.0-5.0 H BASOPHIL % (test code = BA%) 1.1 % 0.0-1.0 H NUCLEATED RBC % (test code = 0.0 % 0-0 N NRBC%) NEUTROPHIL # (test code = NT#) 3.88 K/mm3 1.8-7.7 N IMMATURE GRANULOCYTE # (test 0.01 x10 3/uL 0-0.03 N code = IG#) LYMPHOCYTE # (test code = LY#) 1.88 K/mm3 1.0-5.0 N MONOCYTE # (test code = MO#) 0.53 K/mm3 0-0.8 N EOSINOPHIL # (test code = EO#) 0.65 K/mm3 0.0-0.5 H BASOPHIL # (test code = BA#) 0.08 K/mm3 0.0-0.2 N NUCLEATED RBC # (test code = 0.00 K/mm3 0.0-0.1 N NRBC#) [id number] 19:27:00 Test Item Value Reference Range Interpretation Comments GLUBED (test code = 93 mg/dL 74-106 N Performe d by certified GLUBED) test engine operator at [facility] [id number] 16:15:00 Test Item Value Reference Range Interpretation Comments GLUBED (test code = 82 mg/dL 74-106 N Performe d by certified GLUBED) test engine operator at [facility] [id number] 13:49:00 Test Item Value Reference Range Interpretation Comments GLUBED (test code = 94 mg/dL 74-106 N Performe d by certified GLUBED) test engine operator at [facility] [id number] 12:18:00 Test Item Value Reference Range Interpretation Comments GLUBED (test code = 83 mg/dL 74-106 N Performe d by certified GLUBED) test engine operator at [facility] [id number] 11:37:00 Test Item Value Reference Range Interpretation Comments GLUBED (test code = 51 mg/dL 74-106 L Performe d by certified GLUBED) test engine operator at [facility] [id number] 07:29:00 Test Item Value Reference Range Interpretation Comments GLUBED (test code = 82 mg/dL 74-106 N Performe d by certified GLUBED) test engine operator at [facility] [id number] 19:40:00 Test Item Value Reference Range Interpretation Comments GLUBED (test code = 102 mg/dL 74-106 N Performe d by certified GLUBED) test engine operator at [facility] [id number] 16:49:00 Test Item Value Reference Range Interpretation Comments GLUBED (test code = 96 mg/dL 74-106 N Performe d by certified GLUBED) test engine operator at [facility] [id number] 11:52:00 Test Item Value Reference Range Interpretation Comments GLUBED (test code = 83 mg/dL 74-106 N Performe d by certified GLUBED) test engine operator at [facility] [id number] 07:05:00 Test Item Value Reference Range Interpretation Comments GLUBED (test code = 82 mg/dL 74-106 N Performe d by certified GLUBED) test engine operator at [facility] [id number] 18:56:00 Test Item Value Reference Range Interpretation Comments GLUBED (test code = 79 mg/dL 74-106 N Performe d by certified GLUBED) test engine operator at [facility] [id number] 15:43:00 Test Item Value Reference Range Interpretation Comments GLUBED (test code = 89 mg/dL 74-106 N Performe d by certified GLUBED) test engine operator at [facility] [id number] 11:24:00 Test Item Value Reference Range Interpretation Comments GLUBED (test code = 95 mg/dL 74-106 N Performe d by certified GLUBED) test engine operator at [facility] [id number] 07:51:00 Test Item Value Reference Range Interpretation Comments GLUBED (test code = 97 mg/dL 74-106 N Performe d by certified GLUBED) test engine operator at [facility] [id number] 19:00:00 Test Item Value Reference Range Interpretation Comments GLUBED (test code = 106 mg/dL 74-106 N Performe d by certified GLUBED) test engine operator at [facility] [id number] 16:14:00 Test Item Value Reference Range Interpretation Comments GLUBED (test code = 89 mg/dL 74-106 N Performe d by certified GLUBED) test engine operator at [facility] [id number] 11:18:00 Test Item Value Reference Range Interpretation Comments GLUBED (test code = 118 mg/dL 74-106 H Performe d by certified GLUBED) test engine operator at [facility] [id number] 07:17:00 Test Item Value Reference Range Interpretation Comments GLUBED (test code = 84 mg/dL 74-106 N Performe d by certified GLUBED) test engine operator at [facility] [id number] 19:46:00 Test Item Value Reference Range Interpretation Comments GLUBED (test code = 96 mg/dL 74-106 N Performe d by certified GLUBED) test engine operator at [facility] [id number] 15:54:00 Test Item Value Reference Range Interpretation Comments GLUBED (test code = 138 mg/dL 74-106 H Performe d by certified GLUBED) test engine operator at [facility] [id number] 10:53:00 Test Item Value Reference Range Interpretation Comments GLUBED (test code = 99 mg/dL 74-106 N Performe d by certified GLUBED) test engine operator at [facility] [id number] 07:26:00 Test Item Value Reference Range Interpretation Comments GLUBED (test code = 87 mg/dL 74-106 N Performe d by certified GLUBED) test engine operator at [facility] [id number] 20:02:00 Test Item Value Reference Range Interpretation Comments GLUBED (test code = 85 mg/dL 74-106 N Performe d by certified GLUBED) test engine operator at [facility] [id number] 16:55:00 Test Item Value Reference Range Interpretation Comments GLUBED (test code = 141 mg/dL 74-106 H Performe d by certified GLUBED) test engine operator at [facility] [id number] 11:50:00 Test Item Value Reference Range Interpretation Comments GLUBED (test code = 90 mg/dL 74-106 N Performe d by certified GLUBED) test engine operator at [facility] - XR FOOT 3 + V [id number] 09:13:00 [facility])Name: BG OCHOA : 1955 Sex: F FAX: Alex Beltran DO [place]: B St: ADM FAX: Jose Ag DPM [phone] Name: BG OCHOA [facility] : 1955 Age/S: 67/F [address] [facility] Unit #: [id number] Loc: V.3089 [place], [place] [address]Mhva: Jose Ag DPM Acct: [id number] Dis Date: Status: ADM IN PHONE #: [phone] Exam Date: 0845 FAX #: [phone] Reason: pain left foot EXAMS: CPT CODE: [id number] XR FOOT 3 + V [id number] REASON FOR EXAM: pain left foot EXAM ORDER DATE: 06/22/2022 12:00 AM Ordering: Jose Ag DPM Attending:Alex Wills DO Location:[facility] PROCEDURE: - XR FOOT 3 + V LT FINDINGS: 3 views of the left foot were obtained. The osseous structures are unremarkable in size and shape. The joint spaces are maintained. No evidence of fracture. The phalanges are intact. The metatarsal and tarsal bones are unremarkable. Calcaneal osteophyte. Cortical screws imaged within the distal first metatarsal bone. There is no pericardial hardware lucency or fracture. On the lateral view, the screw appears to project through the posterior cortex next IMPRESSION: No acute abnormality. Questionable posterior penetration of the distal first metatarsal screw. No radiographic evidence of hardware failure. at 0913 Reported and signed by: Kashif Brown M.D. CC: Alex Wills DO; Jose Ag DPM Technologist: Ada Gordillo RT(R); RT YO(R) Trnscrd Date/Time/By: 06/22/2022 (912) : By: [email or web address] Orig Print D/T: S: 06/22/2022 (0916) PAGE1 Signed ReportGLUBED 2022-06-22 08:32:00 Test Item Value Reference Range Interpretation Comments GLUBED (test code = 118 mg/dL 74-106 H Performe d by certified GLUBED) test engine operator at [facility] [id number] 19:57:00 Test Item Value Reference Range Interpretation Comments GLUBED (test code = 134 mg/dL 74-106 H Performe d by certified GLUBED) test engine operator at [facility] [id number] 16:23:00 Test Item Value Reference Range Interpretation Comments GLUBED (test code = 91 mg/dL 74-106 N Performe d by certified GLUBED) test engine operator at [facility] - XR KNEE 1 OR 2 V [id number] 15:32:00 [facility])Name: BG OCHOA : 1955 Sex: F FAX: Alex Beltran DO [place]: B St: ADM Name: BG OCHOA [facility] : 1955 Age/S: 67/F [address] Unit #: [id number] Loc: V.3089 [place] [address] Phys: Alex Wills DO Acct: [id number] Dis Date: Status: ADM IN PHONE #: [phone] Exam Date: 06/21/2022 1510 FAX #: [phone] Reason: chronic left knee pain EXAMS: CPT CODE: [id number] XR KNEE 1 OR 2 [place] [id number] REASON FOR EXAM: chronic left knee pain EXAM ORDER DATE: 06/21/2022 12:00 AM Ordering M.D.: Alex Wills DO PROCEDURE: - XR KNEE 1 OR 2 V LT Comparison:Left knee radiographs June 2018 FINDINGS: No acute fracture. Bony trabecular pattern is unremarkable. No cortical destruction or periosteal reaction. No joint effusion is present. No stranding in Hoffa's fat pad. The medial compartment of the knee joint space is narrowed. Regional soft tissues are unremarkable. IMPRESSION: Mild to moderate degenerative changes of the left knee. Location: [facility] at 1532 Reported and signed by: Galindo Chu MD CC: Alex Wills DO Technologist: Marya Quintero RT(R); ... Trnscrd Date/Time/By: 06/21/2022 (1532) : By: [email or web address] Orig Print D/T: S: 06/21/2022 (5095) PAGE 1 Signed Report- XR CHEST 2 [id number] 15:27:00 [facility])Name: BG OCHOA : 1955 Sex: F FAX: Alex Beltran DO [place]: B St: ADM Name: BG OCHOA [facility] : 1955 Age/S: 67/F [address] [facility] Unit #: [id number] Loc: V.3089 [place] [address] Phys: Alex Wills DO Acct: [id number] Dis Date: Status: ADM IN PHONE #: [phone] Exam Date: 06/21/2022 1510 FAX #: [phone] Reason: baseline s/p ppm placement EXAMS: CPT CODE: [id number] XR CHEST 2 V 96525 REASON FOR EXAM: baseline s/p ppm placement Exam Order Date: 06/21/2022 12:00 AM Ordering MYunior: Alex Wills DO PROCEDURE: - XR CHEST 2 V COMPARISON: Rib series June 2018 FINDINGS: The lungs are clear. There isno pleural effusion or pneumothorax. Pulmonary vascularity is within normal limits. Cardiomediastinal silhouette is normal in size for technique. The mediastinal contours are within normal limits. There is a left subclavian pacemaker with leads in the right atrium and right ventricle and coronary sinus. Degenerative changes are present in the spine. The visualized upper abdomen is within normal limits. IMPRESSION: No acute cardiopulmonary process. Location: [facility] at 1527 Reported and signed by: Galindo Chu MD CC: Alex Wills DO Technologist: Marya Quintero RT(R); ... Trnscrd Date/Time/By: 06/21/2022 (1527) : By: [email or web address] Orig Print D/T: S: 06/21/2022 (5890) PAGE 1 Signed [id number] 11:29:00 Test Item Value Reference Range Interpretation Comments GLUBED (test code = 130 mg/dL 74-106 H Performe d by certified GLUBED) test engine operator at [facility] COMPREHENSIVE METABOLIC [id number] 07:13:00 Test Item Value Reference Range Interpretation Comments SODIUM (test code = 142 mmol/L 136-145 N NA) POTASSIUM (test 3.6 mmol/L 3.5-5.1 N code = K) CHLORIDE (test code 102.0 mmol/L 98-107 N = CL) CARBON DIOXIDE 30.0 mmol/L 21-32 N (test code = CO2) ANION GAP (test 13.6 10-20 N code = GAP) GLUCOSE (test code 113 mg/dL 74-106 H = GLU) BLOOD UREA NITROGEN 23 mg/dL 7-18 H (test code = BUN) GLOMERULAR > 60 mL/min See_Comment The Glomerular FILTRATION RATE Filtration R ate is a (test code = GFR) calculated parameterbased on serum Creatinin e, patient age and sex. GFR valuesless than 60 mL/min/1.73 squ are meters are nick cative ofChronic Kidne y Disease. Values less than 15 mL/min/1.73squa re meters indicate Kidney failure. The calculation for GFR is based on the CK D-EPI (2020) calculat ion. This formulais race indifferent and is the recommended for claudia for GFRby the N ational Kidney Foundati on for Adults.The GFR will not calculate i f the sex is unknown or if thepatient's ag e is <18 years. [Aut omated message] The sy stem which generated this result transmit raphael reference range : >=60. The reference r hailey was not used to interpret this result as normal/abnor mal. CREATININE (test 0.90 mg/dL 0.55-1.02 N Note yepez ge in code = CREAT) reference rang e due to change in reage nt. BUN/CREATININE 26.7 10-20 H RATIO (test code = BUN/CREA) TOTAL PROTEIN (test 7.5 gram/dL 6.4-8.2 N code = PROT) ALBUMIN (test code 3.8 g/dL 3.4-5.0 N = ALB) GLOBULIN (test code 3.7 gram/dL 2.7-4.2 N = GLOB) ALBUMIN/GLOBULIN 1.0 0.75-1.50 N RATIO (test code = A/G) CALCIUM (test code 9.3 mg/dL 8.5-10.1 N = CA) BILIRUBIN TOTAL 0.50 mg/dL 0.0-1.0 N (test code = BILT) SGOT/AST (test code 14 IUnit/L 15-37 L = AST) SGPT/ALT (test code 14 IUnit/L 12-78 N = ALT) ALKALINE 75 IUnit/L 45-117 N Note change i n PHOSPHATASE TOTAL reference range due to (test code = ALKP) change in reagent. [id number] 07:11:00 Test Item Value Reference Range Interpretation Comments GLUBED (test code = 124 mg/dL 74-106 H Performe d by certified GLUBED) test engine operator at [facility] CBC W/AUTO [id number] 06:50:00 Test Item Value Reference Range Interpretation Comments WHITE BLOOD CELL (test code = 11.2 K/mm3 4.5-12.5 N WBC) RED BLOOD CELL (test code = 5.23 mill/mm3 3.7-5.2 H RBC) HEMOGLOBIN (test code = HGB) 15.1 gram/dL 11.5-15.5 N HEMATOCRIT (test code = HCT) 47.0 % 36.0-46.0 H MEAN CELL VOLUME (test code = 89.9 fL 80-98 N MCV) MEAN CELL HGB (test code = MCH) 28.9 picogram 27.0-33.0 N MEAN CELL HGB CONCETRATION 32.1 gram/dL 33.0-36.0 L (test code = MCHC) RED CELL DISTRIBUTION WIDTH 12.8 % 11.6-16.2 N (test code = RDW) RED CELL DISTRIBUTION WIDTH SD 42.2 fL 37.0-51.0 N (test code = RDW-SD) PLATELET COUNT (test code = 286 K/mm3 150-450 N PLT) MEAN PLATELET VOLUME (test code 9.6 fL 6.7-11.0 N = MPV) NEUTROPHIL % (test code = NT%) 63.0 % 39.0-69.0 N IMMATURE GRANULOCYTE % (test 0.3 % 0.0-5.0 N code = IG%) LYMPHOCYTE % (test code = LY%) 21.0 % 25.0-55.0 L MONOCYTE % (test code = MO%) 8.7 % 0.0-10.0 N EOSINOPHIL % (test code = EO%) 6.1 % 0.0-5.0 H BASOPHIL % (test code = BA%) 0.9 % 0.0-1.0 N NUCLEATED RBC % (test code = 0.0 % 0-0 N NRBC%) NEUTROPHIL # (test code = NT#) 7.05 K/mm3 1.8-7.7 N IMMATURE GRANULOCYTE # (test 0.03 x10 3/uL 0-0.03 N code = IG#) LYMPHOCYTE # (test code = LY#) 2.35 K/mm3 1.0-5.0 N MONOCYTE # (test code = MO#) 0.97 K/mm3 0-0.8 H EOSINOPHIL # (test code = EO#) 0.68 K/mm3 0.0-0.5 H BASOPHIL # (test code = BA#) 0.10 K/mm3 0.0-0.2 N NUCLEATED RBC # (test code = 0.00 K/mm3 0.0-0.1 N NRBC#) [id number] 20:24:00 Test Item Value Reference Range Interpretation Comments GLUBED (test code = 146 mg/dL 74-106 H Performe d by certified GLUBED) test engine operator at [facility] POCT GLUCOSE (AUTOMATED)2022-06-20 17:36:20 Test Item Value Reference Range Interpretation Comments POCT GLU (test code = 9266104476) 163 mg/dL 70-110 H Lab Interpretation (test code = Abnormal 00573-6) [facility] GLUCOSE (AUTOMATED)2022-06-20 13:42:53 Test Item Value Reference Range Interpretation Comments POCT GLU (test code = 5142807917) 113 mg/dL 70-110 H Lab Interpretation (test code = Abnormal 74002-3[facility] 03:01:11 Test Item Value Reference Range Interpretation Comments POCT GLU (test code = 2941577390) 136 mg/dL 70-110 H Lab Interpretation (test code = Abnormal 51822-8) [facility] GLUCOSE (AUTOMATED)2022-06-20 02:31:28 Test Item Value Reference Range Interpretation Comments POCT GLU (test code = 6674765390) 149 mg/dL 70-110 H Lab Interpretation (test code = Abnormal 03684-2) [facility] GLUCOSE (AUTOMATED)2022-06-19 23:12:09 Test Item Value Reference Range Interpretation Comments POCT GLU (test code = 8914558529) 216 mg/dL 70-110 H Lab Interpretation (test code = Abnormal 59632-1) [facility] GLUCOSE (AUTOMATED)2022-06-19 18:52:43 Test Item Value Reference Range Interpretation Comments POCT GLU (test code = 0839425189) 250 mg/dL 70-110 H Lab Interpretation (test code = Abnormal 51628-3) [facility] GLUCOSE (AUTOMATED)2022-06-19 18:52:43 Test Item Value Reference Range Interpretation Comments POCT GLU (test code = 7067800925) 250 mg/dL 70-110 H Lab Interpretation (test code = Abnormal 03455-7) [facility] GLUCOSE (AUTOMATED)2022-06-19 13:38:43 Test Item Value Reference Range Interpretation Comments POCT GLU (test code = 9823163984) 140 mg/dL 70-110 H Lab Interpretation (test code = Abnormal 07163-0) [facility] GLUCOSE (AUTOMATED)2022-06-19 13:38:43 Test Item Value Reference Range Interpretation Comments POCT GLU (test code = 6357937192) 140 mg/dL 70-110 H Lab Interpretation (test code = Abnormal 74452-8) [facility] GLUCOSE (AUTOMATED)2022-06-19 02:18:38 Test Item Value Reference Range Interpretation Comments POCT GLU (test code = 4718055888) 114 mg/dL 70-110 H Lab Interpretation (test code = Abnormal 00927-3) [facility] GLUCOSE (AUTOMATED)2022-06-19 02:18:38 Test Item Value Reference Range Interpretation Comments POCT GLU (test code = 0146246197) 114 mg/dL 70-110 H Lab Interpretation (test code = Abnormal 58351-1) [facility] GLUCOSE (AUTOMATED)2022-06-18 22:47:24 Test Item Value Reference Range Interpretation Comments POCT GLU (test code = 8385272703) 205 mg/dL 70-110 H Lab Interpretation (test code = Abnormal 88349-0) [facility] GLUCOSE (AUTOMATED)2022-06-18 22:47:24 Test Item Value Reference Range Interpretation Comments POCT GLU (test code = 4939662902) 205 mg/dL 70-110 H Lab Interpretation (test code = Abnormal 91132-7) [facility] GLUCOSE (AUTOMATED)2022-06-18 18:25:31 Test Item Value Reference Range Interpretation Comments POCT GLU (test code = 6502962342) 180 mg/dL 70-110 H Lab Interpretation (test code = Abnormal 81413-9) [facility] GLUCOSE (AUTOMATED)2022-06-18 18:25:31 Test Item Value Reference Range Interpretation Comments POCT GLU (test code = 8404630875) 180 mg/dL 70-110 H Lab Interpretation (test code = Abnormal 13126-8) [facility] GLUCOSE (AUTOMATED)2022-06-18 14:35:36 Test Item Value Reference Range Interpretation Comments POCT GLU (test code = 7769723623) 101 mg/dL 70-110 Lab Interpretation (test code = Normal 88400-1) [facility] GLUCOSE (AUTOMATED)2022-06-18 14:35:36 Test Item Value Reference Range Interpretation Comments POCT GLU (test code = 6479398045) 101 mg/dL 70-110 Lab Interpretation (test code = Normal 37352-2) [facility] GLUCOSE (AUTOMATED)2022-06-18 02:34:23 Test Item Value Reference Range Interpretation Comments POCT GLU (test code = 9114384951) 174 mg/dL 70-110 H Lab Interpretation (test code = Abnormal 67378-5) [facility] 02:34:23 Test Item Value Reference Range Interpretation Comments POCT GLU (test code = 9843492180) 174 mg/dL 70-110 H Lab Interpretation (test code = Abnormal 69136-2) [facility] 22:55:40 Test Item Value Reference Range Interpretation Comments POCT GLU (test code = 1175640707) 152 mg/dL 70-110 H Lab Interpretation (test code = Abnormal 63858-4) [facility] GLUCOSE (AUTOMATED)2022-06-17 22:55:40 Test Item Value Reference Range Interpretation Comments POCT GLU (test code = 3571159816) 152 mg/dL 70-110 H Lab Interpretation (test code = Abnormal 65017-5) [facility] 18:10:26 Test Item Value Reference Range Interpretation Comments POCT GLU (test code = 6424177010) 154 mg/dL 70-110 H Lab Interpretation (test code = Abnormal 97717-2) [facility] 18:10:26 Test Item Value Reference Range Interpretation Comments POCT GLU (test code = 8234930739) 154 mg/dL 70-110 H Lab Interpretation (test code = Abnormal 52181-5) [facility] 13:36:48 Test Item Value Reference Range Interpretation Comments POCT GLU (test code = 1580165685) 146 mg/dL 70-110 H Lab Interpretation (test code = Abnormal 72135-1) [facility]17 13:36:48 Test Item Value Reference Range Interpretation Comments POCT GLU (test code = 1639045019) 146 mg/dL 70-110 H Lab Interpretation (test code = Abnormal 73735-9) [facility] GLUCOSE (AUTOMATED)2022-06-17 02:34:26 Test Item Value Reference Range Interpretation Comments POCT GLU (test code = 4428322429) 144 mg/dL 70-110 H Lab Interpretation (test code = Abnormal 84301-4) [facility]2022-06-17 02:34:26 Test Item Value Reference Range Interpretation Comments POCT GLU (test code = 2641984993) 144 mg/dL 70-110 H Lab Interpretation (test code = Abnormal 58938-3) [facility] GLUCOSE (AUTOMATED)2022-06-16 23:02:56 Test Item Value Reference Range Interpretation Comments POCT GLU (test code = 0880275164) 96 mg/dL 70-110 Lab Interpretation (test code = Normal 29922-5) [facility] GLUCOSE (AUTOMATED)2022-06-16 23:02:56 Test Item Value Reference Range Interpretation Comments POCT GLU (test code = 0129226657) 96 mg/dL 70-110 Lab Interpretation (test code = Normal 13019-4) [facility] GLUCOSE (AUTOMATED)2022-06-16 18:39:27 Test Item Value Reference Range Interpretation Comments POCT GLU (test code = 7571004184) 126 mg/dL 70-110 H Lab Interpretation (test code = Abnormal 78877-6) [facility] GLUCOSE (AUTOMATED)2022-06-16 18:39:27 Test Item Value Reference Range Interpretation Comments POCT GLU (test code = 3888890926) 126 mg/dL 70-110 H Lab Interpretation (test code = Abnormal 52424-5) [facility] GLUCOSE (AUTOMATED)2022-06-16 14:55:47 Test Item Value Reference Range Interpretation Comments POCT GLU (test code = 4363988195) 97 mg/dL 70-110 Lab Interpretation (test code = Normal 64515-1) [facility] GLUCOSE (AUTOMATED)2022-06-16 14:55:47 Test Item Value Reference Range Interpretation Comments POCT GLU (test code = 2881795789) 97 mg/dL 70-110 Lab Interpretation (test code = Normal 42708-0) [facility] GLUCOSE (AUTOMATED)2022-06-16 01:57:48 Test Item Value Reference Range Interpretation Comments POCT GLU (test code = 2898722304) 82 mg/dL 70-110 Lab Interpretation (test code = Normal 06553-9) [facility]2022-06-16 01:57:48 Test Item Value Reference Range Interpretation Comments POCT GLU (test code = 3646685730) 82 mg/dL 70-110 Lab Interpretation (test code = Normal 03510-7) [facility] METABOLIC PANEL (NA, K, CL, CO2, GLUCOSE, BUN, CREATININE, CA)2022-06-15 20:30:35 Test Item Value Reference Range Interpretation Comments NA (test code = 140 mmol/L 135-145 5909475850) K (test code = 3.3 mmol/L 3.5-5.0 L 5056958784) CL (test code = 105 mmol/L 98-108 5133796092) CO2 TOTAL (test code = 29 mmol/L 23-31 4419109099) AGAP (test code = 2-16 1781017326) BUN (test code = 16 mg/dL 7-23 0165666799) GLUCOSE (test code = 98 mg/dL 70-110 6196936469) CREATININE (test code = 0.53 mg/dL 0.50-1.04 3900349397) CALCIUM (test code = 8.8 mg/dL 8.6-10.6 4354981253) eGFR (test code = mL/min/1.73m2 1234317277) BAM (test code = BAM) Association of Glomerular Filtration Rate (GFR) and Staging of Kidney Disease* + --+ --+ ------+| GFR (mL/min/1.73 m2) ?| With Kidney Damage ?| ?Without Kidney Damage+ --------+ --------+ +| ?>90 ?| ?Stage one ?| ? Normal ?+ ---+ ---+ -------+| ?60-89 ?| ?Stage two ?| ? Decreased GFR ? + --+ --+ ------+| ?30-59 ?| ?Stage three ?| ? Stage three ? + --+ --+ ------+| ?15-29 ?| ?Stage four ? | ? Stage four ?+ ---+ ---+ -------+| ?<15 (or dialysis) ? ?| ?Stage five ? | ? Stage five ?+ ---+ ---+ -------+ *Each stage assumes the associated GFR level has been in effect for at least three months. ?Stages 1 to 5, with or without kidney disease, indicate chronic kidney disease. Notes: Determination of stages one and two (with eGFR >59mL/min/1.73 m2) requires estimation of kidney damage for at least three months as defined by structural or functional abnormalities of the kidney, manifested by either:Pathological abnormalities or Markers of kidney damage (including abnormalities in the composition of the blood or urine or abnormalities in imaging tests). Lab Interpretation Abnormal (test code = 07895-2) [facility] METABOLIC PANEL (NA, K, CL, CO2, GLUCOSE, BUN, CREATININE, CA)2022-06-15 20:30:35 Test Item Value Reference Range Interpretation Comments NA (test code = 140 mmol/L 135-145 5385899267) K (test code = 3.3 mmol/L 3.5-5.0 L 4398467224) CL (test code = 105 mmol/L 98-108 1929486435) CO2 TOTAL (test code = 29 mmol/L 23-31 1902442241) AGAP (test code = 2-16 0517491279) BUN (test code = 16 mg/dL 7-23 6899997646) GLUCOSE (test code = 98 mg/dL 70-110 1289943609) CREATININE (test code = 0.53 mg/dL 0.50-1.04 7402477555) CALCIUM (test code = 8.8 mg/dL 8.6-10.6 9641698887) eGFR (test code = mL/min/1.73m2 0710519202) BAM (test code = BAM) Association of Glomerular Filtration Rate (GFR) and Staging of Kidney Disease* + --+ --+ ------+| GFR (mL/min/1.73 m2) ?| With Kidney Damage ?| ?Without Kidney Damage+ --------+ --------+ +| ?>90 ?| ?Stage one ?| ? Normal ?+ ---+ ---+ -------+| ?60-89 ?| ?Stage two ?| ? Decreased GFR ? + --+ --+ ------+| ?30-59 ?| ?Stage three ?| ? Stage three ? + --+ --+ ------+| ?15-29 ?| ?Stage four ? | ? Stage four ?+ ---+ ---+ -------+| ?<15 (or dialysis) ? ?| ?Stage five ? | ? Stage five ?+ ---+ ---+ -------+ *Each stage assumes the associated GFR level has been in effect for at least three months. ?Stages 1 to 5, with or without kidney disease, indicate chronic kidney disease. Notes: Determination of stages one and two (with eGFR >59mL/min/1.73 m2) requires estimation of kidney damage for at least three months as defined by structural or functional abnormalities of the kidney, manifested by either:Pathological abnormalities or Markers of kidney damage (including abnormalities in the composition of the blood or urine or abnormalities in imaging tests). Lab Interpretation Abnormal (test code = 19211-0) [facility] [id number] 20:00:27 Test Item Value Reference Range Interpretation Comments PROTIME PATIENT (test See_Comment [Auto mated message] code = 5964-2) The system [employer] generated this result transmitted ref erence range: 10.1 - 1 2.6 Seconds. The re ference range was not u sed to interpret this result as normal/abnor mal. INR (test code = 6301-6) Nor mal INR <1.1; Warfarin Therap eutic range 2.0 to 3. 0 or 2.5 to 3.5, dep ending upon the indica tions. Lab Interpretation (test Normal code = 85056-7) [facility]27 Test Item Value Reference Range Interpretation Comments APTT Patient (test code = See_Comment [ Automated message] 3173-2) The system [employer] generated this result transmitted ref erence range: 26 - 36 Seconds. The re ference range was not u sed to interpret this result as normal/abnor mal. Lab Interpretation (test Normal code = 54646-1) [facility] / [id number] 20:00:27 Test Item Value Reference Range Interpretation Comments PROTIME PATIENT (test See_Comment [Auto mated message] code = 5964-2) The system [employer] generated this result transmitted ref erence range: 10.1 - 1 2.6 Seconds. The re ference range was not u sed to interpret this result as normal/abnor mal. INR (test code = 6301-6) Nor mal INR <1.1; Warfarin Therap eutic range 2.0 to 3. 0 or 2.5 to 3.5, dep ending upon the indica tions. Lab Interpretation (test Normal code = 56255-8) [facility] 20:00:27 Test Item Value Reference Range Interpretation Comments APTT Patient (test code = See_Comment [ Automated message] 3173-2) The system [employer] generated this result transmitted ref erence range: 26 - 36 Seconds. The re ference range was not u sed to interpret this result as normal/abnor mal. Lab Interpretation (test Normal code = 31416-1) [facility] WITH [id number] 19:48:45 Test Item Value Reference Range Interpretation Comments WBC (test code = See_Comment [Automated message] 6690-2) The system [employer] generated this result transmitted ref erence range: 4.30 - 1 1.10 10*3/?L. The re ference range was not u sed to interpret this result as normal/abnor mal. RBC (test code = See_Comment [Automated message] 789-8) The system [employer] generated this result transmitted ref erence range: 3.93 - 5 .25 10*6/?L. The re ference range was not u sed to interpret this result as normal/abnor mal. HGB (test code = 13.9 g/dL 11.6-15.0 718-7) HCT (test code = 43.1 % 35.7-45.2 4544-3) MCV (test code = 90.4 fL 80.6-95.5 787-2) MCH (test code = 29.1 pg 25.9-32.8 785-6) MCHC (test code = 32.3 g/dL 31.6-35.1 786-4) RDW-SD (test code 43.8 fL 39.0-49.9 = 60794-9) RDW-CV (test code 13.2 % 12.0-15.5 = 788-0) PLT (test code = See_Comment [Automated message] 777-3) The system whic h generated this result transmitted ref erence range: 166 - 35 8 10*3/?L. The re ference range was not u sed to interpret this result as normal/abnor mal. MPV (test code = 10.4 fL 9.5-12.9 47197-6) NRBC/100 WBC (test See_Comment [Automat ed message] code = 1299598482) The syste m which generated this result transmitted ref erence range: 0.0 - 10 .0 /100 WBCs. The refer ence range was not u sed to interpret this result as normal/abnor mal. NRBC x10^3 (test See_Comment [Automated message] code = 0044669993) The syste m which generated this result transmitted ref erence range: 10*3/?L. The reference range was not used to interpr et this result as normal/abnormal . GRAN MAT (NEUT) % 64.4 % (test code = 770-8) IMM GRAN % (test 0.20 % code = 5320823486) LYMPH % (test code 23.8 % = 736-9) MONO % (test code 7.0 % = 5905-5) EOS % (test code = 3.9 % 713-8) BASO % (test code 0.7 % = 706-2) GRAN MAT 5.57 10*3/uL 1.88-7.09 x10^3(ANC) (test code = 2081075860) IMM GRAN x10^3 0.00-0.06 (test code = 4767259358) LYMPH x10^3 (test 2.06 10*3/uL 1.32-3.29 code = 731-0) MONO x10^3 (test 0.61 10*3/uL 0.33-0.92 code = 742-7) EOS x10^3 (test 0.34 10*3/uL 0.03-0.39 code = 711-2) BASO x10^3 (test 0.06 10*3/uL 0.01-0.07 code = 704-7) [facility] WITH [id number] 19:48:45 Test Item Value Reference Range Interpretation Comments WBC (test code = See_Comment [Automated message] 6690-2) The system [employer] generated this result transmitted ref erence range: 4.30 - 1 1.10 10*3/?L. The re ference range was not u sed to interpret this result as normal/abnor mal. RBC (test code = See_Comment [Automated message] 789-8) The system [employer] generated this result transmitted ref erence range: 3.93 - 5 .25 10*6/?L. The re ference range was not u sed to interpret this result as normal/abnor mal. HGB (test code = 13.9 g/dL 11.6-15.0 718-7) HCT (test code = 43.1 % 35.7-45.2 4544-3) MCV (test code = 90.4 fL 80.6-95.5 787-2) MCH (test code = 29.1 pg 25.9-32.8 785-6) MCHC (test code = 32.3 g/dL 31.6-35.1 786-4) RDW-SD (test code 43.8 fL 39.0-49.9 = 41079-6) RDW-CV (test code 13.2 % 12.0-15.5 = 788-0) PLT (test code = See_Comment [Automated message] 777-3) The system [employer] generated this result transmitted ref erence range: 166 - 35 8 10*3/?L. The re ference range was not u sed to interpret this result as normal/abnor mal. MPV (test code = 10.4 fL 9.5-12.9 55689-6) NRBC/100 WBC (test See_Comment [Automat ed message] code = 9664812391) The syste [employer] which generated this result transmitted ref erence range: 0.0 - 10 .0 /100 WBCs. The refer ence range was not u sed to interpret this result as normal/abnor mal. NRBC x10^3 (test See_Comment [Automated message] code = 9402511696) The syste m which generated this result transmitted ref erence range: 10*3/?L. The reference range was not used to interpr et this result as normal/abnormal . GRAN MAT (NEUT) % 64.4 % (test code = 770-8) IMM GRAN % (test 0.20 % code = 7844255714) LYMPH % (test code 23.8 % = 736-9) MONO % (test code 7.0 % = 5905-5) EOS % (test code = 3.9 % 713-8) BASO % (test code 0.7 % = 706-2) GRAN MAT 5.57 10*3/uL 1.88-7.09 x10^3(ANC) (test code = 8040500250) IMM GRAN x10^3 0.00-0.06 (test code = 2326688462) LYMPH x10^3 (test 2.06 10*3/uL 1.32-3.29 code = 731-0) MONO x10^3 (test 0.61 10*3/uL 0.33-0.92 code = 742-7) EOS x10^3 (test 0.34 10*3/uL 0.03-0.39 code = 711-2) BASO x10^3 (test 0.06 10*3/uL 0.01-0.07 code = 704-7) [facility]"
[2022-10-03] MEDS ORDERED: ENOXAPARIN 40 MG/0.4 ML SQ SCH (15:00)
[2022-10-03] MEDS ORDERED: GLUCAGON 1 MG/VIAL IM PRN ×2 (15:03→15:09)
[2022-10-03] MEDS ORDERED: D10W 250 ML BAG IV PRN ×2 (15:11→15:25)
[2022-10-03] MEDS: INSULIN -REGULAR HUMAN 50 UNIT/0.5 ML ML SQ SCH ×2 (16:30→21:13)
[2022-10-03 16:34] VITALS: BMI 31.0
[2022-10-03] MEDS: ALBUTEROL 2.5 MG/3 ML NEB SOL NEB SCH ×2 (17:00→20:20)
[2022-10-03] MEDS: IPRATROPIUM BROM 0.5MG/2.5ML NEB SCH ×2 (17:00→20:20)
[2022-10-03] MEDS ORDERED: INSULIN LISPRO 100 UNIT/1 ML SQ SCH (17:00)
[2022-10-03] MEDS ORDERED: FUROSEMIDE 40 MG TABLET PO SCH (17:00)
[2022-10-03] MEDS: predniSONE 20 MG TAB PO SCH (17:22)
[2022-10-03] MEDS: glipiZIDE 5 MG TAB PO SCH (17:22)
[2022-10-03] MEDS: MELATONIN 3 MG TABLET PO PRN (19:47)
[2022-10-03] MEDS: GABAPENTIN 300 MG CAP PO SCH (19:47)
[2022-10-03] MEDS: ATORVASTATIN 20 MG TAB PO SCH (19:47)
[2022-10-03] MEDS: HYDROCODONE/APAP 5/325 MG TAB PO PRN (19:47)
[2022-10-03] MEDS: MAGNESIUM OXIDE 400 MG TAB PO SCH (19:47)
[2022-10-03] MEDS: BUDESONIDE 0.5 MG/2 ML NEB NEB SCH (20:20)
[2022-10-03 21:41] LABS: Specific Gravity 1.021 (1.005-1.030); Urine Bacteria <20 /HPF (<20); Urine Bilirubin NEGATIVE (Negative); Urine Blood Negative (Negative); Urine Clarity Clear (Clear); Urine Color Light-Yellow (Yellow); Urine Glucose NEGATIVE (Negative); Urine Mucus Slight /HPF (None Seen); Urine Protein NEGATIVE (Negative); Urine RBC None Seen /HPF (None Seen); Urine Urobilinogen Normal (Normal); Urine pH 5.5 (5.0-7.0)
[2022-10-04] MEDS: HYDROCODONE/APAP 5/325 MG TAB PO PRN (02:09)
[2022-10-04 04:35] LABS: Absolute Lymphocytes (CBC) 0.9 K/uL (0.7-4.9); Lymphocytes % 9.9 % (15.3-44.8); MPV 8.3 fL (7.6-11.3); RBC Red Blood Cell Count 4.61 M/uL (3.86-4.86)
[2022-10-04 04:52] LABS: Albumin 3.4 g/dL (3.4-5.0); Magnesium 2.3 mg/dL (1.6-2.4); Potassium 4.5 mmol/L (3.5-5.1)
[2022-10-04] MEDS: INSULIN -REGULAR HUMAN 50 UNIT/0.5 ML ML SQ SCH ×4 (06:54→19:55)
[2022-10-04] MEDS ORDERED: POTASSIUM CL SA 10 MEQ TAB PO SCH (08:00)
[2022-10-04] MEDS ORDERED: ENOXAPARIN 40 MG/0.4 ML SQ SCH ×2 (08:00→17:00)
[2022-10-04] MEDS ORDERED: FUROSEMIDE 40 MG TABLET PO SCH (08:00)
--- NOTE | 2022-10-04 08:04 | RAD REPORT ---
EXAM DESCRIPTION: Malaika Single View3 5:36 am CLINICAL HISTORY: Chest pain COMPARISON: 2020 FINDINGS: Mild bilateral lung opacities without obvious change. These may all be chronic or there ma y be a mild superimposed acute process Heart is mildly enlarged. Pacemaker leads in place
[2022-10-04] MEDS: POTASSIUM CL SA 10 MEQ TAB PO SCH ×2 (08:47→19:56)
[2022-10-04] MEDS: predniSONE 20 MG TAB PO SCH (08:48)
[2022-10-04] MEDS: GABAPENTIN 300 MG CAP PO SCH ×3 (08:48→19:57)
[2022-10-04] MEDS: glipiZIDE 5 MG TAB PO SCH ×2 (08:49→17:21)
[2022-10-04] MEDS: MAGNESIUM OXIDE 400 MG TAB PO SCH ×2 (08:49→19:59)
[2022-10-04] MEDS: ALBUTEROL 2.5 MG/3 ML NEB SOL NEB SCH ×2 (09:05→12:00)
[2022-10-04] MEDS: BUDESONIDE 0.5 MG/2 ML NEB NEB SCH ×2 (09:05→22:20)
[2022-10-04] MEDS: IPRATROPIUM BROM 0.5MG/2.5ML NEB SCH ×2 (09:05→12:00)
[2022-10-04] MEDS ORDERED: ALBUTEROL 2.5 MG/3 ML NEB SOL NEB PRN (12:29)
[2022-10-04] MEDS: LIDOCAINE 4% PATCH TOP SCH (14:40)
[2022-10-04] MEDS: FUROSEMIDE 40 MG TABLET PO SCH (19:56)
[2022-10-04] MEDS: APIXABAN 2.5 MG TABLET PO SCH (19:57)
[2022-10-04] MEDS: ATORVASTATIN 20 MG TAB PO SCH (19:58)
--- NOTE | 2022-10-04 20:19 | HP ---
Date of Admission: 10/03/2022 Date of Service: 10/04/2022. Time Of Service: 9 a.m. Chief Complaint: "Cannot walk. My legs are weak and I need to get better before hip replacement." History Of Present Illness: Ms. Scott is a 67-year-old right-handed patient with congestive heart failure, diabetes mellitus, hypertension, chronic pacemaker placement, who was scheduled to have right total hip replacement, but as part of her evaluation determined that she was in acute on chronic congestive heart failure. She came in at [facility] on the 28 of September with the weight gain, leg swelling, dyspnea on exertion and orthopnea. She lives alone in a trailer and typically was independent and able to ambulate with a cane and rolling walker but perform her activities of daily living without assistance. Due to swelling and pain on the right hip and lower extremity, she did require supplemental oxygen at 2 L and especially when asleep. Her surgery was scheduled. This is the right total hip replacement to be fixed. However, because of her acute on chronic congestive heart failure, she was then admitted for acute management to improve her condition and also to do so prior to surgery. She did have an x-ray which showed stable moderate cardiomegaly, mild pulmonary edema and she had a CT of the right hip confirmed as severe osteoarthritis and a possible lipoma on the right thigh, which the patient did say does give some pain. Her echocardiogram on the 29 of September showed acute on chronic diastolic congestive heart failure exacerbation. She received aggressive diuretics and fluid restriction for her pulmonary edema and extremity edema, which significantly improved her lower extremity swelling. Medical management included managing hypokalemia, hypomagnesemia, and her dyslipidemia. Those imbalances improved. She does have a history of severe asthma and was seen by the Pulmonary service. She received Dupixent shots twice a month for asthma and typically on the day does not require oxygen and treated and is without CHF exacerbation. Oxygen saturations may typically range from 91 to 98 on room air. She was seen by the Cardiology service. Found to have a beta- natriuretic peptide to be increased. The Orthopedic service again identified the severe right hip issues and the lipoma. Due to her complicated medical condition and the need for improving prior to surgery and the patient living alone in a small home with difficulty with weightbearing, she was unable to return home and unable to be able to improve in a setting other than in acute rehab with aggressive medical management. She currently is able to ambulate but is very unsteady with a rolling walker. Requires minimal assistance to get from sit to stand. As a result, she was now admitted to the acute inpatient rehabilitation unit for higher level of care and would not do well, if she would be discharged home or to a lower level of skilled service. Past Medical History: As noted above in addition to anxiety, arthritis, aspergillosis, asthma, candidal vulvovaginitis, congestive heart failure, chronic insomnia, she had a cystocele, depression, diabetes mellitus, diverticulosis, gastroesophageal reflux disease, hemorrhoids, hearing loss, history of urinary tract infection, dyslipidemia, hypertension, hypomagnesemia, chronic memory loss. She had varicose veins, vitamin D deficiency. Past Surgical History: Anterior colporrhaphy in 2015 and breast biopsy, 2018. Colonoscopy, 2015. Cystoscopy, 2015. Hysterectomy and laparoscopic surgery in 2020, and a mass excision in 2021. Had cataract, 2018. Posterior colporrhaphy, 2020. Had abdominal adhesions slice in 2020. Had a tension-free vaginal tape procedure in 2015, and sacrospinous ligament suspension in 2020. Allergies: ASPIRIN. WHILE AT [facility], SHE DID HAVE X-RAY OF THE RIGHT UPPER LEG, WHICH SUGGESTED A LIPOMA. CHEST X-RAY SHOWED A STABLE MODERATE CARDIOMEGALY. THERE WERE MULTIPLE LEAD PACEMAKER. THERE WAS PULMONARY EDEMA, STABLE INTERSTITIAL PROMINENCE IDENTIFIED. CT OF THE RIGHT FEMUR ON 09/29/2022 SHOWED SEVERE OSTEOARTHRITIS OF THE RIGHT HIP WITH MILD FLATTENING OF THE SUPERIOR ARTICULAR SURFACE OF THE RIGHT FEMUR HEAD. SMALL JOINT EFFUSION SEEN. THE ECHOCARDIOGRAM SHOWED EJECTION FRACTION 40% TO 45%. IMPAIRED RELAXATION. MILD TRANSVALVULAR REGURGITATION. RIGHT VENTRICULAR AREA SHOWED MILD TO MODERATE DILATATION. THERE IS MILDLY REDUCED SYSTOLIC FUNCTION. TRICUSPID VALVE SHOWED MILD TRANSVALVULAR REGURGITATION. THERE IS A 1 X 1 CM ECHOGENIC MASS IN THE RENAL ARTERY INFERIOR VENA CAVA JUNCTION. SHE DID HAVE A CONSULTATION WHILE AT [facility] FROM THE CARDIOLOGY SERVICE, WHICH SUGGESTED STABLE COMPENSATED OF 10/01/2022, AND SHE DID HAVE A SUGGESTION OF A SLEEP STUDY DUE TO OBESITY TO RULE OUT SLEEP APNEA AND THE ORTHOPEDIC SERVICE ARE MENTIONED. Family History: Noncontributory. Social History: Patient denies alcohol, tobacco, or IV drug use. Lives alone in a small trailer home. Review of Systems: She reports diffuse weakness, pain in the right thigh, swelling in the legs. She has difficulty with ambulation, unsteady gait. Some mild memory loss and some diffuse myalgias and arthralgias. She denies any rash, any psychiatric issues. No active gastrointestinal or genitourinary issues. Current Medications: Tylenol 650 mg every 6 hours, [place] 5/325 every 4 hours as needed, albuterol nebulizer 2.5 mg nebulizer 4 times a day as scheduled, Lipitor 20 mg at bedtime, Pulmicort 0.5 mg nebulizer twice daily, Lovenox 40 mg subcutaneously daily, Lasix 40 mg daily, gabapentin 300 mg 3 times daily, glipizide 5 mg twice daily. She has Atrovent 0.5 mg nebulizer 4 times daily, magnesium oxide 400 mg twice daily, melatonin 3 mg at bedtime, potassium chloride 20 mEq twice daily, prednisone 50 mg daily, Senokot S 2 at bedtime. Physical Examination: Vital Signs: Blood pressure 133/62, pulse 75, respiratory rate 18, temperature 97.2, oxygen saturation 94% on room air. Pain level ranged from 7, now it is at 2. She did have an earlier pain level of 0. HEENT: She is normocephalic, atraumatic. Sclerae anicteric. Oropharynx is moist and pink. Neck: Supple. Chest: Clear. Heart: Regular. Extremities: She does have mild edema in the lower extremities. She does have a mild swelling noted in the right lateral thigh. There is some pain in the lower back, but to just deep palpation. It radiates into the right thigh. Neurological: In terms of the cranial nerves, neurological exam, no focal deficits there. Motor examination, upper and lower extremities, she has intact strength without asymmetry except she is diffusely weak around 4+ in the upper and lower extremities. Sensory exam, stocking-glove loss noted in the lower and upper extremities. Coordination intact in the lower and upper extremities. Gait, she will be ambulated with the physical therapists. Laboratory Studies: White blood cell count 9.4, hemoglobin 13.4, hematocrit 41, platelets 281. Chemistries: Sodium 134, potassium 4.5, chloride 104, BUN is 38. Her creatinine is 0.91. Her kidney function is now normal. Her glucose ranged from 180 to 257. Calcium 9.1, magnesium 2.1, albumin 3.4, prealbumin 29. Urinalysis shows 25 esterase, is otherwise normal. COVID-19 test is negative. Current Level Of Functioning: She ambulated 70 feet twice with a rolling walker with minimum assistance. Did report the right hip pain up to 04/15. She did [id number] stepping using hand rails covering 10 feet with minimum assistance. She did require minimum assistance to sit to stand, and verbal cues were required. 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 Verbal cues required there. She did bed mobility and supine to sit at her bed with minimum assistance. Bathing of the lower body, upper body was independent using a long-handled sponge and she mobilized 65 feet to therapy. Did do therapy in the gym with the wheelchair. Rehabilitation Assessment And Plan: Note rehabilitation impairment category is 14 cardiac, rehabilitation impairment group code is 09 cardiac, the etiologic diagnosis is acute on chronic combined systolic and diastolic congestive heart failure with exacerbation. Active comorbidities: Respiratory failure, anxiety, asthma, dyspnea, hypertension, obesity, a pacemaker placement, degenerative joint disease in right hip, pulmonary edema, orthopnea, dyslipidemia, and right lateral thigh lipoma. Plan: 1. She will have physical, occupational, and speech therapy up to 3-1/2 hours daily as appropriate. 2. For her congestive heart failure, she will continue with fluid restriction and salt restriction as appropriate. She will continue Lasix 40 mg daily. Diabetes mellitus treated with glipizide 5 mg twice daily. She will have Lovenox 40 mg daily for DVT prophylaxis. Lipitor for dyslipidemia. [place] 5/325 as needed for pain every 4 hours. Gabapentin 300 mg 3 times daily will be used for neuropathic pain and right hip pain. Magnesium oxide for hypomagnesemia. Prednisone for her asthma. Senokot S for constipation. Melatonin at night for insomnia. Impact Of Comorbids On Her Rehabilitation Process: 1. At this point, her osteoarthritis and need for right hip replacement does pose a challenge because of severe pain in the right hip as noted up to 04/15. She will have a pain patch placed on the right hip. Gabapentin will also be adjusted as appropriate and [place] will be used as well. She may have Ultram added if need be. 2. Her asthma is controlled with steroids and that could flare up, so that will be closely watched. She did have acute on chronic diastolic congestive heart failure and the salt intake will be monitored carefully. Rehab Plan: Again she will have physical and occupational therapy along with speech therapy as appropriate for 3 to 3-1/2 hours a day, 5 of 7 days and she will have therapy focusing on the ability to regain strength in the lower extremities, to ambulate more than household distances and at least 250 feet if she is capable. To manage a wheelchair 250 feet with modified independence, go up and down at least 5 steps with modified independence to showering, toileting, all with modified independence to independence. She does understand the benefits of admission to the acute inpatient rehabilitation unit and that she will receive an interdisciplinary inpatient rehabilitation treatment program. She has a potential to make good improvement and will need at least physical and occupational therapy, in addition, potentially speech therapy. Additional services may be required including respiratory service, nutrition service, diabetic teaching, and if depression does become an issue, psychological services as appropriate in addition to Cardiology and Orthopedic Service. Given the patient's complex medical condition and risk of further complications medically, her rehabilitation will not be safely provided at a lower level facility such as senior living. Barriers To Discharge: At this point, her right hip pain is a potential barrier to how we medicated again as noted above. Asthma is a potential barrier. Risk of worsening CHF, the potential barrier, but those will be medicated as noted. Estimated Length Of Stay: Around 10 days. Disposition: She is expected to be discharged home. Prognosis: Good. Rehabilitation Goals: To become independent with upper and lower body dressing, transferring, toileting, ambulating household distances, going up and down 10 steps independently, to manage her fluid level appropriately and to maintain a lack of edema in the lower extremities. I acknowledged that I personally performed a full physical examination on Ms. Deirdre Scott within 24 hours of her admission to the inpatient rehabilitation facility and determined that she is able to tolerate the course of treatment outlined above at the intensive level noted. A detailed individualized plan of care for her will be completed by hospital day 4 based on her preadmission screen, history and physical, and therapy evaluations. Her kidney function is normal. LB/MODL Voice ID: [id number] NICKI
[2022-10-05 06:15] LABS: Absolute Lymphocytes (CBC) 2.9 K/uL (0.7-4.9); Hematocrit 41.3 % (36.0-45.0); Lymphocytes % 27.1 % (15.3-44.8); MCV 88.4 fL (80-100); MPV 8.6 fL (7.6-11.3); RBC Red Blood Cell Count 4.67 M/uL (3.86-4.86)
[2022-10-05 06:32] LABS: Albumin 3.3 g/dL (3.4-5.0); Magnesium 2.4 mg/dL (1.6-2.4); Potassium 3.7 mmol/L (3.5-5.1); Prealbumin 28.5 mg/dL (20-40)
[2022-10-05] MEDS: INSULIN -REGULAR HUMAN 50 UNIT/0.5 ML ML SQ SCH ×4 (06:45→20:08)
[2022-10-05] MEDS ORDERED: predniSONE 20 MG TAB PO SCH (08:00)
[2022-10-05] MEDS: glipiZIDE 5 MG TAB PO SCH ×2 (08:26→16:39)
[2022-10-05] MEDS: FUROSEMIDE 40 MG TABLET PO SCH ×2 (08:26→16:39)
[2022-10-05] MEDS: APIXABAN 2.5 MG TABLET PO SCH ×2 (08:26→20:08)
[2022-10-05] MEDS: GABAPENTIN 300 MG CAP PO SCH ×3 (08:26→20:08)
[2022-10-05] MEDS: POTASSIUM CL SA 10 MEQ TAB PO SCH ×2 (08:27→20:08)
[2022-10-05] MEDS: MAGNESIUM OXIDE 400 MG TAB PO SCH ×2 (08:27→20:08)
[2022-10-05] MEDS: ACETAMINOPHEN 500 MG TAB PO PRN (08:29)
[2022-10-05] MEDS: LIDOCAINE 4% PATCH TOP SCH (08:29)
[2022-10-05] MEDS: BUDESONIDE 0.5 MG/2 ML NEB NEB SCH ×2 (08:45→21:15)
[2022-10-05] MEDS: ATORVASTATIN 20 MG TAB PO SCH (20:08)
[2022-10-05] MEDS: HYDROCODONE/APAP 5/325 MG TAB PO PRN (23:55)
--- NOTE | 2022-10-06 00:47 | PN ---
Date of Progress Note: 10/05/2022 [id number] Progress Note Time Of Service: 1 p.m. Subjective: Ms. Scott is feeling better, though she still would like to improve her strength. She does say getting into her bathroom has to be sideways activity as a walker cannot fit through the doo r of her bathroom. Otherwise, she does have some improvement in the back pain after receiving a pain patch, but she said she would not mind receiving a second one as that would be helpful. Review of Systems: No fevers, chills, nausea, vomiting, myalgias, or arthralgias except for back pain noted. There is w eakness in the lower extremities and some improvement in the swelling in the lower extremities. Othe rwise, no significant shortness of breath. No genitourinary issues. No gastrointestinal issues or d ermatological issues. No psychological complaints. Objective: Vital Signs: Blood pressure 119/59, pulse 75, respiratory rate of 18, temperature 97.4, oxygen saturation 97%. General: Ms. Scott is resting comfortably in a chair beside the bed. HEENT: She is normocephalic, atraumatic. Sclerae anicteric. Oropharynx pink and moist. Neck: Supple. Chest: Clear. Heart: Regular. Extremities: Show significant edema, cyanosis; there is mild edema and she does have some weakness i n the lower extremities proximally and distally consistent with her CHF myopathy. Laboratory Studies: Complete blood count with differential is completely normal. Chemistry: Sodium 138, potassium 3.7, chloride 106, carbon dioxide 31, BUN 33, creatinine 0.74, glucose ranged from 12 3 to 368, albumin 3.3, prealbumin 28.5, magnesium 2.4. Urinalysis shows 25 esterase, otherwise evgeny l. Imaging: X-ray from yesterday, her chest showed mild bilateral lung opacities without obvious change compared to a study done in 2020, likely representing chronic findings, which may be a mild superimp osed acute process. Heart is mildly enlarged. Pacemaker leads noted to be in place. Medications: Tylenol Extra Strength 500 mg every 6 hours, [place] 5/325 every 4 hours as needed, albut carly 2.5 mg nebulizer every 4 hours, Eliquis 2.5 mg twice daily, Lipitor 40 mg at bedtime, Pulmicort 0.5 mg nebulizer twice daily, dextrose as needed for blood sugars, Lasix 40 mg twice daily , gabapentin 300 mg 3 times daily, Glucotrol 5 mg twice daily, ipratropium 0.5 mg nebulizer every 4 h ours for wheezing, lidocaine patch 2 patches topically daily, magnesium oxide 400 mg twice daily, domo atonin 3 mg at bedtime, potassium 20 mEq twice daily, prednisone 40 mg daily, Senokot-S 2 at bedtime. Current Level Of Functioning: She ambulated 125 feet twice, 325 feet once, and 500 feet twice with a rolling walker independently, emphasis placed on mechanics. Patient was able to ascend and descend 15 steps independently with 2 trials. In terms of speech, the patient was good spirits, cooperative, organizational thinking completed within 90% accuracy for 5 items and on 3 category with maximum don bal semantic cues. The patient recalled 4/4 unrelated words with use of internal memory strategies. She sustained attention to task for 45 seconds with moderate verbal cues. Assessment: Ms. Scott is a 67-year-old patient with congestive heart failure myopathy, which produc ed weakness in the extremities from which she is recovering and doing well with physical therapy. Sh jf has comorbid asthma, congestive heart failure, depression, diabetes poorly controlled at this point , gastroesophageal reflux disease, hemorrhoids, dyslipidemia, hypertension. Plan: 1.She will continue physical, occupational, and speech therapy for 3.5 hours 5 to 7 days. 2.We will continue with management of her comorbid conditions with medications as listed and as note d above. Continue with aggressive management of diabetes mellitus with a sliding scale with adjustme nts. Glucotrol will be adjusted as appropriate and a sliding scale, may be go from a mild to a moder ate sliding scale. 3.For her CHF myopathy, she worked aggressively on proximal muscle strength, which she is doing very well as noted in her current functional status. She does want to work hard on being able to go into and out of her bathroom, which is too narrow for her rolling walker. Comorbidities That Continue To Impact Rehabilitation Progress: At this point, the biggest comorbid i ssue was blood sugars which have ranged up to 365 down to 153 and a more aggressive sliding scale jaden l be applied in addition to adjustment of her oral hypoglycemic medications. Her diet will be adjust ed, diabetic diet, diabetic teaching also. At this point, she will continue with therapy and mary lou ns will be made tomorrow in the session as to discharge, which it looks the patient will be ready for discharge by Sunday, which is in 2 days. In terms of her renal function, her kidney function is n ormal with a normal creatinine. LB/MODL Voice ID: [id number] Report ID: [id number]
[2022-10-06] MEDS: INSULIN -REGULAR HUMAN 50 UNIT/0.5 ML ML SQ SCH ×4 (06:49→20:11)
[2022-10-06] MEDS: ACETAMINOPHEN 500 MG TAB PO PRN (07:05)
[2022-10-06] MEDS: LIDOCAINE 4% PATCH TOP SCH (07:06)
[2022-10-06] MEDS ORDERED: predniSONE 20 MG TAB PO SCH (08:00)
--- NOTE | 2022-10-06 08:43 | P.RH.PN ---
Estimated Length of Stay: 5 Expected Discharge Date: 10/07/22 Discharge Disposition Plan: Home Family Support: Yes Practice Specialist Goal: Mobility, Transfers, Self Care Vital Signs: Last Vital Signs Temp 97.8 F 10/06/22 08:00 Pulse 65 10/06/22 08:00 Resp 18 10/06/22 08:00 BP 121/66 10/06/22 08:00 Pulse Ox 98 10/06/22 08:00 Laboratory: Laboratory Last Values WBC 10.60 K/uL (4.3-10.9) 10/05/22 05:18 RBC 4.67 M/uL (3.86-4.86) 10/05/22 05:18 Hgb 13.6 g/dL (12.0-15.0) 10/05/22 05:18 Hct 41.3 % (36.0-45.0) 10/05/22 05:18 MCV 88.4 fL (80-100) 10/05/22 05:18 MCH 29.1 pg (27.0-35.0) 10/05/22 05:18 MCHC 33.0 g/dL (32.0-36.0) 10/05/22 05:18 RDW 13.8 % (12.1-15.2) 10/05/22 05:18 Plt Count 278 K/uL (152-406) 10/05/22 05:18 MPV 8.6 fL (7.6-11.3) 10/05/22 05:18 Neutrophils % 65.1 % (41.7-73.7) 10/05/22 05:18 Lymphocytes % 27.1 % (15.3-44.8) 10/05/22 05:18 Monocytes % 7.3 % (3.3-12.3) 10/05/22 05:18 Eosinophils % 0.3 % (0-4.4) 10/05/22 05:18 Basophils % 0.2 % (0-1.3) 10/05/22 05:18 Absolute Neutrophils 6.9 K/uL (1.8-8.0) 10/05/22 05:18 Absolute Lymphocytes 2.9 K/uL (0.7-4.9) 10/05/22 05:18 Absolute Monocytes 0.8 K/uL (0.1-1.3) 10/05/22 05:18 Absolute Eosinophils 0.0 K/uL (0-0.5) 10/05/22 05:18 Absolute Basophils 0.0 K/uL (0-0.5) 10/05/22 05:18 Sodium 138 mmol/L (136-145) 10/05/22 05:18 Potassium 3.7 mmol/L (3.5-5.1) D 10/05/22 05:18 Chloride 106 mmol/L (98-107) 10/05/22 05:18 Carbon Dioxide 31 mmol/L (21-32) 10/05/22 05:18 Anion Gap 4.7 mEq/L (5.0-15.0) L 10/05/22 05:18 BUN 33 mg/dL (7-18) H 10/05/22 05:18 Creatinine 0.74 mg/dL (0.55-1.02) 10/05/22 05:18 Est GFR (CKD-EPI) 89 ml/min (=/>90) L 10/05/22 05:18 Glucose 123 mg/dL (74-106) H 10/05/22 05:18 POC Glucose 117 mg/dL (65-120) 10/06/22 06:46 Calcium 9.0 mg/dL (8.5-10.1) 10/05/22 05:18 Magnesium 2.4 mg/dL (1.6-2.4) 10/05/22 05:18 NT-Pro-B Natriuret Pep 148 pg/mL (<125) H 10/05/22 05:18 Albumin 3.3 g/dL (3.4-5.0) L 10/05/22 05:18 Prealbumin 28.5 mg/dL (20-40) 10/05/22 05:18 Urine Color Light-yellow (Yellow) 10/03/22 20:55 Urine Clarity Clear (Clear) 10/03/22 20:55 Urine pH 5.5 (5.0-7.0) 10/03/22 20:55 Ur Specific [place] 1.021 (1.005-1.030) 10/03/22 20:55 Glucose (UA)(Auto) Negative (Negative) 10/03/22 20:55 Urine Ketones Negative (Negative) 10/03/22 20:55 Urine Blood Negative (Negative) 10/03/22 20:55 Urine Nitrite Negative (Negative) 10/03/22 20:55 Urine Bilirubin Negative (Negative) 10/03/22 20:55 Urine Urobilinogen Normal (Normal) 10/03/22 20:55 Ur Leukocyte Esterase 25 Idalmis/uL (Negative) H 10/03/22 20:55 Urine RBC None seen /HPF (None Seen) 10/03/22 20:55 Urine WBC 5-10 /HPF (<5) 10/03/22 20:55 Ur Squamous Epith Cells <5 /HPF (None Seen) 10/03/22 20:55 Urine Bacteria <20 /HPF (<20) 10/03/22 20:55 Urine Mucus Slight /HPF (None Seen) 10/03/22 20:55 Urine Culture Reflexed Not needed 10/03/22 20:55 Urine Total Protein Negative (Negative) 10/03/22 20:55 SARS-CoV-2 Rap RNA(RT-PCR) Negative (NEGATIVE) 10/03/22 14:10 Weight: 175 lb 1.6 oz Wound Present: No Closed Surgical Incision Present: No Negative Pressure Wound Therapy Present: No Physician Update: She is doing well with therapy. Her blood sugars have been elevated possibly related to steroids. Will cut down her steroids to 10 mg twice daily and keep a mild glucose sliding scale. 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 Please see the Rehabilitation Signature page for all necessary signatures.
[2022-10-06] MEDS: APIXABAN 2.5 MG TABLET PO SCH ×2 (09:00→20:10)
[2022-10-06] MEDS: POTASSIUM CL SA 10 MEQ TAB PO SCH ×2 (09:10→20:10)
[2022-10-06] MEDS: predniSONE 10 MG TAB PO SCH ×2 (09:12→20:10)
[2022-10-06] MEDS: glipiZIDE 5 MG TAB PO SCH ×2 (09:12→16:43)
[2022-10-06] MEDS: GABAPENTIN 300 MG CAP PO SCH ×3 (09:12→20:11)
[2022-10-06] MEDS: MAGNESIUM OXIDE 400 MG TAB PO SCH ×2 (09:13→20:00)
[2022-10-06] MEDS: FUROSEMIDE 40 MG TABLET PO SCH ×2 (09:13→16:43)
[2022-10-06] MEDS: BUDESONIDE 0.5 MG/2 ML NEB NEB SCH ×2 (10:55→19:55)
[2022-10-06] MEDS: CRANBERRY FRUIT EXTRACT 200 MG CAP PO SCH (20:10)
[2022-10-06] MEDS: ATORVASTATIN 20 MG TAB PO SCH (20:11)
[2022-10-06] MEDS: DOCUSATE NA/SENNA CONC 1 TAB PO PRN (21:47)
[2022-10-07] MEDS: LIDOCAINE 4% PATCH TOP SCH (07:28)
[2022-10-07] MEDS: INSULIN -REGULAR HUMAN 50 UNIT/0.5 ML ML SQ SCH ×4 (07:30→20:42)
[2022-10-07] MEDS: FUROSEMIDE 40 MG TABLET PO SCH ×2 (08:12→16:39)
[2022-10-07] MEDS: POTASSIUM CL SA 10 MEQ TAB PO SCH ×2 (08:12→20:05)
[2022-10-07] MEDS: APIXABAN 2.5 MG TABLET PO SCH ×2 (08:12→20:05)
[2022-10-07] MEDS: GABAPENTIN 300 MG CAP PO SCH ×3 (08:13→20:05)
[2022-10-07] MEDS: glipiZIDE 5 MG TAB PO SCH ×2 (08:13→16:40)
[2022-10-07] MEDS: MAGNESIUM OXIDE 400 MG TAB PO SCH ×2 (08:13→20:04)
[2022-10-07] MEDS: CRANBERRY FRUIT EXTRACT 200 MG CAP PO SCH ×2 (08:13→20:05)
[2022-10-07] MEDS: predniSONE 10 MG TAB PO SCH ×2 (08:13→20:03)
[2022-10-07] MEDS: HYDROCODONE/APAP 5/325 MG TAB PO PRN ×3 (08:16→20:06)
[2022-10-07] MEDS: BUDESONIDE 0.5 MG/2 ML NEB NEB SCH ×2 (08:36→21:30)
[2022-10-07] MEDS ORDERED: POLYETHYL GLY 3350 17 GM/DOSE PO PRN (19:46)
[2022-10-07] MEDS: MELATONIN 3 MG TABLET PO PRN (20:04)
[2022-10-07] MEDS: ATORVASTATIN 20 MG TAB PO SCH (20:05)
[2022-10-07] MEDS ORDERED: BUDESONIDE 0.5 MG/2 ML NEB ONE (20:06)
[2022-10-07] MEDS: DOCUSATE NA/SENNA CONC 1 TAB PO PRN (20:07)
[2022-10-08] MEDS: LIDOCAINE 4% PATCH TOP SCH (07:20)
[2022-10-08] MEDS: INSULIN -REGULAR HUMAN 50 UNIT/0.5 ML ML SQ SCH ×4 (07:30→19:48)
[2022-10-08] MEDS: MAGNESIUM OXIDE 400 MG TAB PO SCH ×2 (07:47→19:48)
[2022-10-08] MEDS: glipiZIDE 5 MG TAB PO SCH ×2 (07:48→16:36)
[2022-10-08] MEDS: CRANBERRY FRUIT EXTRACT 200 MG CAP PO SCH ×2 (07:48→19:49)
[2022-10-08] MEDS: APIXABAN 2.5 MG TABLET PO SCH ×2 (07:48→19:49)
[2022-10-08] MEDS: FUROSEMIDE 40 MG TABLET PO SCH ×2 (07:48→16:36)
[2022-10-08] MEDS: predniSONE 10 MG TAB PO SCH ×2 (07:48→19:49)
[2022-10-08] MEDS: GABAPENTIN 300 MG CAP PO SCH ×3 (07:48→19:49)
[2022-10-08] MEDS: POTASSIUM CL SA 10 MEQ TAB PO SCH ×2 (07:49→19:49)
[2022-10-08] MEDS: HYDROCODONE/APAP 5/325 MG TAB PO PRN (11:47)
[2022-10-08] MEDS: BUDESONIDE 0.5 MG/2 ML NEB NEB SCH ×2 (11:56→20:00)
[2022-10-08] MEDS: MELATONIN 3 MG TABLET PO PRN (19:48)
[2022-10-08] MEDS: DOCUSATE NA/SENNA CONC 1 TAB PO PRN (19:49)
[2022-10-08] MEDS: ATORVASTATIN 20 MG TAB PO SCH (19:49)
[2022-10-09] MEDS: INSULIN -REGULAR HUMAN 50 UNIT/0.5 ML ML SQ SCH ×4 (07:13→19:50)
[2022-10-09] MEDS: BUDESONIDE 0.5 MG/2 ML NEB NEB SCH ×2 (08:00→21:10)
[2022-10-09] MEDS: CRANBERRY FRUIT EXTRACT 200 MG CAP PO SCH ×2 (08:43→19:51)
[2022-10-09] MEDS: LIDOCAINE 4% PATCH TOP SCH (08:43)
[2022-10-09] MEDS: ACETAMINOPHEN 500 MG TAB PO PRN (08:43)
[2022-10-09] MEDS: predniSONE 10 MG TAB PO SCH ×2 (08:44→19:51)
[2022-10-09] MEDS: APIXABAN 2.5 MG TABLET PO SCH ×2 (08:44→19:52)
[2022-10-09] MEDS: glipiZIDE 5 MG TAB PO SCH ×2 (08:44→16:45)
[2022-10-09] MEDS: GABAPENTIN 300 MG CAP PO SCH ×3 (08:44→19:52)
[2022-10-09] MEDS: MAGNESIUM OXIDE 400 MG TAB PO SCH ×2 (08:45→19:52)
[2022-10-09] MEDS: POTASSIUM CL SA 10 MEQ TAB PO SCH ×2 (08:46→19:51)
[2022-10-09] MEDS: FUROSEMIDE 40 MG TABLET PO SCH ×2 (08:48→16:45)
[2022-10-09] MEDS: IPRATROPIUM BROM 0.5MG/2.5ML NEB PRN (12:14)
[2022-10-09] MEDS ORDERED: BISACODYL 10 MG RECTAL SUPP PR PRN (13:53)
[2022-10-09 16:14] LABS: Potassium 3.9 mmol/L (3.5-5.1)
[2022-10-09] MEDS: ATORVASTATIN 20 MG TAB PO SCH (19:52)
[2022-10-09] MEDS: MELATONIN 3 MG TABLET PO PRN (19:52)
--- NOTE | 2022-10-10 00:53 | PN ---
Date of Progress Note: 10/09/2022 Time Of Service: 12:30 p.m. Subjective: Ms. Scott is doing very well. She is excited about the prospect of going [facility] and she is happy so far with all of her therapy, although she has not had a bowel movement in 2 days and would like to have 1 prior to leaving. Review of Systems: As noted, some difficulty with constipation. Otherwise, no fevers, chills, nausea, vomiting, myalgia s or arthralgias. No significant rash, headache, weight change. No psychiatric complaints. No arpan rointestinal complaints aside from mentioned above. No genitourinary complaints. Physical Examination: Vital Signs: Blood pressure 113/56, pulse 65, respiratory rate 16, temperature 97.7, oxygen saturati on 97%. General: Ms. Scott is sitting in a chair at lunch time, enjoying her lunch, she said. She is in no significant distress. HEENT: She is normocephalic, atraumatic. Sclerae anicteric. Oropharynx pink and moist. Neck: Supple. Chest: Clear. Heart: Regular. Extremities: She is improving strength proximally in both lower extremities. Laboratory Studies: Today, blood sugars did range from 110 up to 324 and this was after she had some thing to eat later in the evening. Her sodium, potassium, chloride, all normal. Creatinine 0.89, ca lcium 8.8. X-ray imaging: No new x-rays or imaging. Medications: Medications remain unchanged. 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 Also magnesium 400 mg twice daily for muscle spasm, melatonin for insomnia. Prednis one is now being decreased to 10 mg twice daily and on Senokot for constipation. Current Functional Status: Currently, Ms. Scott is able to ambulate under 325 feet twice and 550 fe et twice with a rolling walker independently. She ascends and descended 15 steps independently x2. Also, stand and pivot transfer independently. Supine to sit transfers independently, sit and stand i s independent. With speech therapy, she needed visualize strategies to recall for 4/4 unrelated word s after 10 minutes without cues. She answered, responsive speech questions to improve expressive celso guage function with 80% accuracy. Progress Towards Rehabilitation Goals: At this point, she has made excellent progress towards her go als of becoming independent in all ADLs, mobilization over 500 feet, up and up 15 steps with independ ent, dressing upper and lower body with independence, and performing cognitively with independence. Assessment And Plan: Ms. Scott is a 67-year-old patient admitted to the rehabilitation unit with co ngestive heart failure-related myopathy. She has depression, diabetes, gastroesophageal reflux, hemo rrhoids, dyslipidemia, hypertension. Plan: 1.She will continue her physical and occupational along with speech therapy and is actually ready fo r discharge and will continue with physical therapy and occupation therapy as recommended. 2.All of her comorbid conditions are now adequately addressed and those medications to be continued and they are listed above. Comorbid Conditions That Continue To Impact Rehabilitation Process: At this point, she has no limita tions and is ready to be discharged home in the morning. ELINA/BRITTANY Voice ID: [id number] Report ID: [id number]
[2022-10-10] MEDS: HYDROCODONE/APAP 5/325 MG TAB PO PRN (03:53)
[2022-10-10] MEDS: LIDOCAINE 4% PATCH TOP SCH (06:57)
[2022-10-10] MEDS: INSULIN -REGULAR HUMAN 50 UNIT/0.5 ML ML SQ SCH ×2 (07:05→11:30)
[2022-10-10 07:06] VITALS: BP 122/58; TEMP 97.1
[2022-10-10] MEDS: BUDESONIDE 0.5 MG/2 ML NEB NEB SCH (08:00)
[2022-10-10] MEDS: GABAPENTIN 300 MG CAP PO SCH (08:31)
[2022-10-10] MEDS: POTASSIUM CL SA 10 MEQ TAB PO SCH (08:31)
[2022-10-10] MEDS: glipiZIDE 5 MG TAB PO SCH (08:31)
[2022-10-10] MEDS: CRANBERRY FRUIT EXTRACT 200 MG CAP PO SCH (08:31)
[2022-10-10] MEDS: MAGNESIUM OXIDE 400 MG TAB PO SCH (08:32)
[2022-10-10] MEDS: APIXABAN 2.5 MG TABLET PO SCH (08:32)
[2022-10-10] MEDS: FUROSEMIDE 40 MG TABLET PO SCH (08:32)
[2022-10-10] MEDS: ACETAMINOPHEN 500 MG TAB PO PRN (08:33)
[2022-10-10] MEDS: predniSONE 10 MG TAB PO SCH (08:36)
[2022-10-10] MEDS: IPRATROPIUM BROM 0.5MG/2.5ML NEB PRN (08:45)
== END 2022-10-10 12:30 | disposition home or self-care (01) | DRG 947 ==
LOC: 5TH 10-03 13:45
PROVIDERS: ADMIT Psychiatry & Neurology Neurology with Special Qualifications in Child Neurology; ATTEND Psychiatry & Neurology Neurology with Special Qualifications in Child Neurology
DX: R53.1 Weakness (principal); I50.43 Acute on chronic combined systolic (congestive) and diastolic (congestive) heart failure; J96.90 Respiratory failure, unspecified, unspecified whether with hypoxia or hypercapnia; J81.1 Chronic pulmonary edema; B44.9 Aspergillosis, unspecified; R26.2 Difficulty in walking, not elsewhere classified; E11.65 Type 2 diabetes mellitus with hyperglycemia; I10 Essential (primary) hypertension; I51.7 Cardiomegaly; I83.90 Asymptomatic varicose veins of unspecified lower extremity; E87.6 Hypokalemia; E83.42 Hypomagnesemia; E78.5 Hyperlipidemia, unspecified; J45.909 Unspecified asthma, uncomplicated; F41.9 Anxiety disorder, unspecified; F32.A Depression, unspecified; B37.31 Acute candidiasis of vulva and vagina; G47.00 Insomnia, unspecified; G72.9 Myopathy, unspecified; K21.9 Gastro-esophageal reflux disease without esophagitis; K57.90 Diverticulosis of intestine, part unspecified, without perforation or abscess without bleeding; D17.23 Benign lipomatous neoplasm of skin and subcutaneous tissue of right leg; R22.2 Localized swelling, mass and lump, trunk; R22.43 Localized swelling, mass and lump, lower limb, bilateral; M79.10 Myalgia, unspecified site; M16.11 Unilateral primary osteoarthritis, right hip; M25.551 Pain in right hip; M79.651 Pain in right thigh; M54.50 Low back pain, unspecified; K64.9 Unspecified hemorrhoids; K59.00 Constipation, unspecified; E66.9 Obesity, unspecified; R41.3 Other amnesia; Z68.31 Body mass index [BMI] 31.0-31.9, adult; Z87.440 Personal history of urinary (tract) infections; Z95.0 Presence of cardiac pacemaker
CPT/HCPCS: 36415; 71045; 80048; 81001; 82040; 82947; 83735; 83880; 84134; 85025; 87077; 87086; 87088; 87186; 92523; 94640; 97110; 97116; 97129; 97150; 97161; 97165; 97530; J1815; J2001; J7512; J7613; J7644; U0003